=== PATIENT | female | born 1945 | race Caucasian/White ===

== ENCOUNTER → 2016-05-11 | Day surgery (SDC) | payer BC, OTHER ==
[~2016-05-11] VITALS: Ht 171.5 cm; Wt 149.5 kg
[~2016-05-11] MED LIST: ADVIN10/60 INH; ADVIN25/60 INH; AMARYL PO; ATROPINE SULFATE 0.1 MG/ML 5ML SYR IV PRN; CEFAZOLIN 2000 MG/60 ML D5W IV SCH; CEFAZOLIN 3000 MG/65 ML D5W IV SCH; CIPR-255 PO; DXY100 PO; EpHEDrine SULFATE INJ 50 MG/ML AMP IV PRN; FENTANYL CITRATE INJ 50 MCG/1 ML 2 ML VIAL IV PRN; FRS/40 PO; GFNSR600 PO; GLIM2TAB2 PO; GUAI1TAB55 PO; HYDR-5688 PO; HYDROCODONE/ACETAMOPHEN 5/325MG TAB PO PRN; INSDGIPEN SC; INSDGIPEN SQ; LACTATED RINGER'S 1000ML 1,000 ML IV SCH; LIDOCAINE HCL 1% 20 ML VIAL INJ ONE; LIDOCAINE HCL 2% 2 ML VIAL (20MG/ML) ONE; LISI-792 PO; LORA-741 PO; METR-163 PO; MIDAZOLAM HCL 1 MG/ML 2ML VIAL ONE; NVLGIPEN SC; OMEP20CA9 PO; OXGN; PATIENT'S HEIGHT AND/OR WEIGHT NEEDED SCH; PRD20 PO; PRED20TA PO; PROPOFOL IV EMULSION 10 MG/ML 20 ML VIAL IV ONE; PRVHFAIN INH; SITA100T3 PO; SITA1TAB27 PO; SPACMIS19; SPRIN INH; VENL150T33 PO; VNTHFA/IN INH
[2016-05-11 08:06] VITALS: BP 155/78; PULSE 70; TEMP 37.1; O2SAT 96; Ht 171.5 cm; Wt 149.5 kg
--- NOTE | 2016-05-11 08:34 | History & Physical Bridge Note ---
H&P Re-Evaluation Bridge Note: I have examined the patient, reviewed the History & Physical and in the interval since the performance of the History & Physical I have noted the following changes of clinical significance: No changes noted
[2016-05-11 09:28] VITALS: PULSE 68; O2SAT 98
[2016-05-11 10:30] VITALS: BP 166/68; PULSE 68; TEMP 36.5; O2SAT 94
--- NOTE | 2016-05-11 10:35 | [facility] Operative Report ---
Operative Report Operative Date May 11, 2016. Pre-Operative Diagnosis Temporal Pain Post-Operative Diagnosis Rt temporal pain Procedure(s) Performed Right temporal artery bx Surgeon Dr. Peterson Kumar Photo Booth Operator Surgeon(s) none Findings normal appearing , very small Rt temporal artery Anesthesia local / sedation Complication(s) pt had pre op wheezing according to anesthesiologist and required breathing treatment preop dissection was difficult , artery deep, pt somewhat difficult to do under local / sedation I decided to stop after Rt side bx- did not feel comfortable proceeding with Left side- no sxs Disposition Recovery Room / PACU I attest to the content of the Intraoperative Record and any orders documented therein. Any exceptions are noted below.
--- NOTE | 2016-05-11 10:38 | Discharge Instructions ---
Discharge Instructions Visit Reason for Visit: Temporal Pain, Diabetes Discharge Discharge Diagnosis / Problem: Rt temporal pain Discharge Goals Goal(s): Decrease discomfort, Improve function, Improve disease control Activity Recommendations Lifting Limitations: no more than 10 pounds Exercise/Sports Limitations: until after follow-up appointment May Resume Sexual Activity: when tolerated Shower/Bathe: tomorrow Anesthesia . Post Anesthesia Instructions: If you have had General Anesthesia or IV Sedation: * Do not drive today. * Resume driving when surgeon permits. * Do not make important decisions or sign legal documents today. * Call surgeon for: 1. Temperature elevations greater than 101 degrees F. 2. Uncontrollable pain. 3. Excessive bleeding. 4. Persistent nausea and vomiting. 5. Medication intolerance (nausea, vomiting or rash). * For nausea and vomiting use only clear liquids such as: tea, soda, bouillon until nausea subsides, then gradually increase diet as tolerated. * If you have any concerns or questions, call your surgeon's office. If physician is unavailable and it is an emergency, call 911 or go to the nearest emergency room. . Instructions / Follow-Up Instructions / Follow-Up SPECIAL CARE INSTRUCTIONS: * Cover incisions and change daily for comfort/drainage. * May use ibuprofen for pain as tolerated. * Expect some swelling and bruising. Call your doctor if: * Temperature above 101 degrees * Pain not relieved by pain medicine ordered * There is increased drainage or redness from any incision * You have any unanswered questions or concerns [phone]. FOLLOW UP VISIT: If not already scheduled, please call the office for a follow-up visit. for 7-10 days - suture removal- please call OFFICE PHONE NUMBER: Dr. Kumar Office Diet Recommendations Recommended Home Diet: resume previous diet Pending Studies Studies pending at discharge: no Medical Emergencies . Who to Call and When: Medical Emergencies: If at any time you feel your situation is an emergency, please call 911 immediately. . Non-Emergent Contact Non-Emergency issues call your: Surgeon . . "Provider Documentation" section prepared by Peterson Kumar.
--- NOTE | 2016-05-11 10:49 | Anesthesiology Progress Note ---
Anesthesia Post Op Note Date & Time May 11, 2016 at 10:48 Vital Signs Pain Intensity: 0 Vital Signs Past 12 Hours Date Time Temp Pulse Resp B/P Pulse Ox O2 Delivery O2 Flow Rate FiO2 05/11/16 09:28 68 16 98 Room Air 05/11/16 08:06 37.1 70 70 155/78 96 Room Air Notes Mental Status: alert / awake / arousable, participated in evaluation Pt Amnestic to Procedure: Yes Nausea / Vomiting: adequately controlled Pain: adequately controlled Airway Patency, RR, SpO2: stable & adequate BP & HR: stable & adequate Hydration State: stable & adequate Anesthetic Complications: no major complications apparent
[2016-05-11 11:00] VITALS: BP 158/64; PULSE 67; TEMP 36.6; O2SAT 96
--- NOTE | 2016-05-11 11:01 | OPERATIVE REPORT ---
DATE OF OPERATION: 05/11/2016 NAME OF OPERATION: Right temporal artery biopsy. PREOPERATIVE DIAGNOSIS: Right temporal pain. POSTOPERATIVE DIAGNOSIS: Same. STAFF SURGEON: Dr. Kumar. ANESTHESIA: 1% plain lidocaine with sedation. FINDINGS: The patient had apparent wheezing preoperatively according to the anesthesiologist and required a breathing treatment. She does have a history of recent respiratory difficulties. I did approach the right side first after she was brought in the operating room, her right and left temporal areas were prepped and draped. It was somewhat difficult to feel the artery. Using 1% plain lidocaine I anesthetized the tissue just anterior to the ear and just above it, carrying dissection down deeply. With some difficulty, I was able to identify the temporal artery, which was very small. It appeared to be less than a millimeter in diameter. It was dissected free and a segment sent for pathology. The ends were ligated using 4-0 chromic catgut suture and 4-0 silk suture. Because of the patient's medical problems and difficulty with the dissection, I did not feel comfortable proceeding with the left side. Therefore, the right side was closed using 4-0 chromic catgut for the deep tissue, and running 5-0 Prolene for the skin. Dressing applied and she was taken to the recovery room in stable condition. I attest to the content of the Intraoperative Record and any orders documented therein. Any exceptio ns are noted below.
[2016-05-11 11:15] VITALS: BP 162/65; PULSE 72; TEMP 36.9; O2SAT 94
== END | disposition home or self-care (01) ==
LOC: C.ACU 07:09
PROVIDERS: ATTEND Surgery
DX: R51 Headache (principal); I44.0 Atrioventricular block, first degree; Z95.0 Presence of cardiac pacemaker; J44.9 Chronic obstructive pulmonary disease, unspecified; E66.01 Morbid (severe) obesity due to excess calories; E11.9 Type 2 diabetes mellitus without complications; Z79.4 Long term (current) use of insulin

== ENCOUNTER 2016-05-14 02:32 | Inpatient (IN) | payer BC, OTHER ==
[~2016-05-14] VITALS: Ht 170.2 cm; Wt 152.1 kg
[2016-05-14] VITALS (9 sets, daily range): BP systolic 102–138; BP diastolic 60–78; PULSE 74–84; TEMP 36.4–37.7; O2SAT 91–96; Ht 170.2 cm; Wt 152.1 kg
[~2016-05-14 02:32] MED LIST changes: +ACETAMINOPHEN 500 MG TAB PO STA; -ADVIN25/60 INH; -AMARYL PO; -ATROPINE SULFATE 0.1 MG/ML 5ML SYR IV PRN; -CEFAZOLIN 2000 MG/60 ML D5W IV SCH; -CEFAZOLIN 3000 MG/65 ML D5W IV SCH; -CIPR-255 PO; -EpHEDrine SULFATE INJ 50 MG/ML AMP IV PRN; -FENTANYL CITRATE INJ 50 MCG/1 ML 2 ML VIAL IV PRN; -FRS/40 PO; -GFNSR600 PO; -GLIM2TAB2 PO; -GUAI1TAB55 PO; -HYDROCODONE/ACETAMOPHEN 5/325MG TAB PO PRN; -LACTATED RINGER'S 1000ML 1,000 ML IV SCH; -LIDOCAINE HCL 1% 20 ML VIAL INJ ONE; -LIDOCAINE HCL 2% 2 ML VIAL (20MG/ML) ONE; -METR-163 PO; -MIDAZOLAM HCL 1 MG/ML 2ML VIAL ONE; +ONDANSETRON INJ 2 MG/ML 2 ML VIAL IV STA; -OXGN; -PATIENT'S HEIGHT AND/OR WEIGHT NEEDED SCH; -PRED20TA PO; -PROPOFOL IV EMULSION 10 MG/ML 20 ML VIAL IV ONE; -SITA100T3 PO; -SITA1TAB27 PO; +SODIUM CHLORIDE 0.9% 500ML 500 ML IV STA; -SPACMIS19; -VNTHFA/IN INH
--- NOTE | 2016-05-14 02:39 | EMERGENCY ROOM VISIT NOTE ---
History Report prepared by Iraj: Gwen Swann Under the Supervision of: Dr. Phoenix Fuentes M.D. First contact with patient: 02:29 Chief Complaint: ILLNESS Stated Complaint: GENERAL ILLNESS History of Present Illness The patient is a 71 year old female who presents to the Emergency Room with complaints of a persistent illness that began yesterday. The patient states on Tuesday she had a temporal artery biopsy. She states that yesterday she didnt feel well, noting nausea, dry heaves, cough, fever, body aches, runny nose, and diaphoresis. The patient additionally notes a headache on the right side of her head where she had her biopsy. EMS reports that the patient is a diabetic and had a blood sugar of 275 mg/dL. They note that the patients oxygen saturation was 89% and was placed on 2 liters of supplemental oxygen. EMS denies giving the patient any medications prior to arrival. Per records, the patient was discharged from the hospital on 05/01/16 after being treated for acute bronchitis. Records indicate that the patient does not normally use supplemental oxygen. Source of History: patient, EMS Onset: yesterday Position: other (global) Quality: other (illness) Timing: other (persistent) Associated Symptoms: + cough, + diaphoresis, + headache, + nausea Note: Associated Symptoms: dry heaves, runny nose, body aches Review of Systems See HPI for pertinent positives & negatives. A total of 10 systems reviewed and were otherwise negative. Past Medical & Surgical Medical Problems: (1) Asthma (2) Asthma exacerbation (3) Bronchitis with asthma, acute (4) Diabetes (5) HTN (hypertension) (6) Pacemaker (7) Rectal abscess (8) Vertigo Surgical Problems: (1) rhizotomy (2) S/P cholecystectomy (3) S/P hysterectomy (4) S/P knee replacement Family History Heart disease Hypertension Social History Smoking Status: Former Smoker Drug Use: none Marital Status: Housing Status: lives with family Occupation Status: retired Current/Historical Medications Scheduled Fluticasone Prop/Salmeterol (Advair Diskus 100/50 60 Dose), 2 PUFFS INH BID Glimepiride (Glimepiride), 2 MG PO TID Insulin Glargine (Lantus Solostar), 20 UNITS SQ QAM Lisinopril (Zestril), 40 MG PO DAILY Omeprazole (Prilosec), 20 MG PO DAILY Sitagliptin Phosphate (Januvia), 100 MG PO DAILY Tiotropium [place] (Spiriva Handihaler), 1 PUFF INH QAM Venlafaxine Hcl (Venlafaxine Hcl Er), 150 MG PO DAILY Scheduled PRN Albuterol Hfa (Ventolin Hfa), 2 PUFFS INH Q4H PRN for SOB/Wheezing Furosemide (Lasix), 40 MG PO DAILY PRN for WEIGHT GAIN/EDEMA Lorazepam (Ativan), 0.5 MG PO BID PRN for Anxiety Allergies Coded Allergies: Erythromycin (Verified Allergy, Intermediate, CONFUSION, HEADACHE, 05/11/16 ) Nitrofurantoin (Verified Allergy, Intermediate, 15 different symptoms, 02/15) Chocolate (Verified Allergy, Unknown, ., 05/11/16) Physical Exam Vital Signs Date Time Temp Pulse Resp B/P Pulse Ox O2 Delivery O2 Flow Rate FiO2 05/14/16 03:55 37.4 89 22 130/80 95 Nasal Cannula 2.0 05/14/16 02:24 39.0 91 24 153/74 95 Nasal Cannula 2.0 Physical Exam GENERAL: Patient is unwell appearing and in moderate distress. HEENT: Dressing over the right orthodox, no bleeding. No acute trauma, normocephalic atraumatic, mucous membranes moist, no nasal congestion, no scleral icterus. NECK: No stridor, no adenopathy, no meningismus, trachea is midline. LUNGS: Crackles bilateral lungs with mild dyspnea. No wheeze, no rhonchi. HEART: Regular rate and rhythm. No murmurs, rubs, gallops appreciated. ABDOMEN: Soft, nontender, bowel sounds positive, no masses appreciated, no peritonitis. BACK: No midline tenderness, no CVA tenderness EXTREMITIES: Normal motion all extremities, no cyanosis, no edema. NEUROLOGIC: Diffuse generalized weakness. Alert and oriented, no acute motor or sensory deficits, cranial nerves grossly intact. SKIN: No rash, no jaundice, no diaphoresis. Medical Decision & Procedures ER Provider Diagnostic Interpretation: 1 view chest x-ray: Pacemaker in place, no infiltrate, no effusion. Similar to previous chest x-ray. Laboratory Results 05/14/16 02:40 Red Blood Count 5.38, Mean Corpuscular Volume 84.9, Mean Corpuscular Hemoglobin 29.2, Mean Corpuscular Hemoglobin Concent 34.4, Mean Platelet Volume 10.6, Neutrophils (%) (Auto) 85.8, Lymphocytes (%) (Auto) 6.4, Monocytes (%) (Auto) 6.6, Eosinophils (%) (Auto) 0.3, Basophils (%) (Auto) 0.1, Neutrophils # (Auto) 13.23, Lymphocytes # (Auto) 0.98, Monocytes # (Auto) 1.01, Eosinophils # (Auto) 0.05, Basophils # (Auto) 0.01 05/14/16 02:40 Test 05/14/16 02:30 05/14/16 02:35 05/14/16 02:40 05/14/16 02:46 Influenza Type A (RT-PCR) Neg for Influ A (NEG) Influenza Type B (RT-PCR) Neg for Influ B (NEG) Urine Color ORANGE Urine Appearance SLIGHTLY CLOUDY (CLEAR) Urine pH (4.5-7.5) Urine Specific [employer] 1.031 (1.000-1.030) Urine Protein POS (NEG) Urine Glucose (UA) (NEG) Urine Ketones (NEG) Urine Occult Blood (NEG) Urine Nitrite (NEG) Urine Bilirubin (NEG) Urine Urobilinogen (NEG) Urine Leukocyte Esterase (NEG) Urine RBC 0-4 /hpf (0-4) Urine WBC 0 /hpf (0-5) Urine Epithelial Cells >30 /lpf (0-5) Urine Amorphous Sediment PRESENT (NONE PRSENT) Urine Bacteria 1+ (NEG) Urine Hyaline Casts 1-5 /lpf (0-5) Urine Mucus PRESENT (NONE PRSENT) White Blood Count 15.41 K/uL (4.8-10.8) Red Blood Count 5.38 M/uL (4.2-5.4) Hemoglobin 15.7 g/dL (12.0-16.0) Hematocrit 45.7 % (37-47) Mean Corpuscular Volume 84.9 fL (80-100) Mean Corpuscular Hemoglobin 29.2 pg (25-34) Mean Corpuscular Hemoglobin Concent 34.4 g/dl (32-36) Platelet Count 165 K/uL (130-400) Mean Platelet Volume 10.6 fL (7.4-10.4) Neutrophils (%) (Auto) 85.8 % Lymphocytes (%) (Auto) 6.4 % Monocytes (%) (Auto) 6.6 % Eosinophils (%) (Auto) 0.3 % Basophils (%) (Auto) 0.1 % Neutrophils # (Auto) 13.23 K/uL (1.4-6.5) Lymphocytes # (Auto) 0.98 K/uL (1.2-3.4) Monocytes # (Auto) 1.01 K/uL (0.11-0.59) Eosinophils # (Auto) 0.05 K/uL (0-0.5) Basophils # (Auto) 0.01 K/uL (0-0.2) RDW Standard Deviation 44.3 fL (36.4-46.3) RDW Coefficient of Variation 14.4 % (11.5-14.5) Immature Granulocyte % (Auto) 0.8 % Immature Granulocyte # (Auto) 0.13 K/uL (0.00-0.02) Platelet Estimate NORMAL Red Blood Cell Morphology Unremarkable Prothrombin Time 12.4 SECONDS (9.0-12.0) Prothromb Time International Ratio 1.2 (0.9-1.1) Anion Gap 10.0 mmol/L (3-11) Est Creatinine Clear Calc Drug Dose 67.2 ml/min Estimated GFR () 52.7 Estimated GFR (Non- 45.4 BUN/Creatinine Ratio 18.8 (10-20) Calcium Level 8.6 mg/dl (8.5-10.1) Magnesium Level 1.7 mg/dl (1.8-2.4) Total Bilirubin 1.3 mg/dl (0.2-1) Direct Bilirubin 0.4 mg/dl (0-0.2) Aspartate Amino Transf (AST/SGOT) 16 U/L (15-37) Alanine Aminotransferase (ALT/SGPT) 26 U/L (12-78) Alkaline Phosphatase 98 U/L (45-117) Total Creatine Kinase 25 U/L (26-192) Creatine Kinase MB < 0.5 ng/ml (0.5-3.6) Creatine Kinase MB Ratio (0-3.0) Troponin I 0.016 ng/ml (0-0.045) Total Protein 7.3 gm/dl (6.4-8.2) Albumin 2.9 gm/dl (3.4-5.0) Bedside Lactic Acid Venous 1.98 mmol/L (0.90-1.70) Laboratory results as reviewed by me. Medications Administered Medications (Trade) Dose Ordered Sig/Aubree Route Start Time Stop Time Status Last Admin Dose Admin Acetaminophen 1000 mg 1,000 mg NOW STAT PO 05/14/16 02:28 05/14/16 02:30 DC 05/14/16 02:43 1,000 MG Sodium Chloride (Nss 500ml) 500 ml @ 999 mls/hr Q31M STAT IV 05/14/16 02:28 05/14/16 02:58 DC 05/14/16 02:42 999 MLS/HR Ondansetron HCl 4 mg 4 mg NOW STAT IV 05/14/16 02:28 05/14/16 02:30 DC 05/14/16 02:42 4 MG Sodium Chloride (Nss 500ml) 500 ml @ 999 mls/hr Q31M STAT IV 05/14/16 04:14 05/14/16 04:44 DC 05/14/16 04:14 999 MLS/HR Piperacillin Sod/ Tazobactam Sod 4.5 gm 4.5 gm NOW STAT IV 05/14/16 04:27 05/14/16 04:29 DC 05/14/16 04:33 4.5 GM Vancomycin HCl/ Sodium Chloride (Vancomycin Inj/ Nss 250ml) 270 ml @ 125 mls/hr NOW STAT IV 05/14/16 04:27 05/14/16 06:23 DC 05/14/16 05:06 125 MLS/HR ECG Indication: other (illness) Rate (beats per minute): 89 Rhythm: sinus rhythm Findings: 1st degree AV block, RBBB, no acute ischemic change ED Course 0223: The patient was evaluated in room B7. A complete history and physical exam was performed. 0228: Ordered Zofran Inj 4 mg IV, Sodium Chloride 500 ml @ 999 mls/hr IV, Tylenol Tab 1000 mg PO. 0412: I discussed the patients case with Dr. Billy [facility] [place]. He is going to evaluate the patient for further treatment. 0414: Ordered Sodium Chloride 500 ml @ 999 mls/hr IV. 0415: I reevaluated the patient and she is resting comfortably. I discussed the exam findings with her and I discussed the treatment plan. She verbalized complete understanding and agreement. She will be evaluated for further treatment. Medical Decision Differential: Viral, Pharyngitis, Cellulitis, Pneumonia, Influenza, Meningitis, Sepsis, Bacteremia, UTI/Pyelonephritis, Endocrine, Toxicologic, amongst other pathologies entertained. 71 yr old chronically unwell female arrives with fevers, wbc elevation, hypoxia and generalized weakness requiring NC O2. Given fluids and found to have mild lactic acid elevation. CXR unchanged from previous and UA looks clear. No clear cause of sepsis though she is mildly septic. She recently was admitted with Levaquin, thus will start on zosyn/vanc. Otherwise labs look OK and she is stable. Can not send home if hypoxic. Consults Time Called: [phone] Consulting Physician: ARTHUR Allen Returned Call: [phone] I discussed the patients case with ARTHUR Allen. He is going to evaluate the patient for further treatment. Impression Primary Impression: Sepsis Scribe Attestation The scribe's documentation has been prepared under my direction and personally reviewed by me in its entirety. I confirm that the note above accurately reflects all work, treatment, procedures, and medical decision making performed by me. Departure Information Dispostion Being Evaluated By Hospitalist Referrals (PCP) Problem Qualifiers Primary Impression: Sepsis Sepsis type: sepsis due to unspecified organism Qualified Codes: A41.9 - Sepsis, unspecified organism
[2016-05-14] MEDS ORDERED: VNTHFA/IN INH (02:59)
[2016-05-14 03:02] LABS: MANUAL MICROSCOPIC REQUIRED? YES; REVIEW REQ? NO; SULFASALICYLIC ACID POS (NEG); URINE APPEARANCE SLIGHTLY CLOUDY (CLEAR); URINE COLOR ORANGE
[2016-05-14 03:03] LABS: URINE SPECIFIC GRAVITY 1.031 (1.000-1.030)
[2016-05-14] MEDS ORDERED: PRED20TA PO (03:04)
[2016-05-14] MEDS ORDERED: SPRIN INH (03:05)
[2016-05-14 03:06] LABS: URINE RBC 0-4 /hpf (0-4); URINE WBC 0 /hpf (0-5)
[2016-05-14 03:07] LABS: URINE AMORPHOUS SEDIMENT PRESENT (NONE PRSENT); URINE BACTERIA 1+ (NEG); URINE MUCUS PRESENT (NONE PRSENT)
[2016-05-14] MEDS ORDERED: FRS/40 PO (03:07)
[2016-05-14 03:08] LABS: ZZURINE CULT IF INDIC CATH YES
[2016-05-14] MEDS ORDERED: SITA100T3 PO (03:17)
[2016-05-14] MEDS ORDERED: GLIM2TAB2 PO (03:19)
[2016-05-14 03:24] LABS: INR 1.2 (0.9-1.1); PROTHROMBIN TIME (PATIENT) 12.4 SECONDS (9.0-12.0)
[2016-05-14 03:32] LABS: ALT/SGPT 26 U/L (12-78); AST/SGOT 16 U/L (15-37); BLOOD UREA NITROGEN 23 mg/dl (7-18); BUN/CREATININE RATIO 18.8 (10-20); CALCIUM 8.6 mg/dl (8.5-10.1); CARBON DIOXIDE 26 mmol/L (21-32); CHLORIDE 95 mmol/L (98-107); GLUCOSE 285 mg/dl (70-99); MAGNESIUM 1.7 mg/dl (1.8-2.4); POTASSIUM 4.5 mmol/L (3.5-5.1); SODIUM 131 mmol/L (136-145)
[2016-05-14 03:38] LABS: ALKALINE PHOSPHATASE 98 U/L (45-117)
[2016-05-14 03:57] LABS: BASO % 0.1 %; BASO ABS # 0.01 K/uL (0-0.2); COMPLETE YES; EOS % 0.3 %; HEMATOCRIT 45.7 % (37-47); IG% 0.8 %; LYMPH % 6.4 %; LYMPH ABS # 0.98 K/uL (1.2-3.4); MEAN CELL VOLUME 84.9 fL (80-100); MEAN CORPUSCULAR HEMOGLOBIN 29.2 pg (25-34); MEAN CORPUSCULAR HGB CONC 34.4 g/dl (32-36); MEAN PLATELET VOLUME 10.6 fL (7.4-10.4); MONO % 6.6 %; NEUT % 85.8 %; PLATELET COUNT 165 K/uL (130-400); PLT ESTIMATE NORMAL; RED BLOOD COUNT 5.38 M/uL (4.2-5.4); WHITE BLOOD COUNT 15.41 K/uL (4.8-10.8)
[2016-05-14] MEDS ORDERED: SODIUM CHLORIDE 0.9% 500ML 500 ML IV STA (04:14)
[2016-05-14 04:15] LABS: INFLUENZA A PCR Neg for Influ A (NEG); INFLUENZA B PCR Neg for Influ B (NEG)
[2016-05-14] MEDS ORDERED: PIPERACILLIN/TAZOBACTAM 4.5 GM/100ML D5W IV STA (04:27)
[2016-05-14] MEDS ORDERED: VANCOMYCIN INJ 1,000 MG in SODIUM CHLORIDE 0.9% 250ML 250 ML IV STA (04:27)
[2016-05-14] MEDS ORDERED: LORAZEPAM 0.5 MG TAB PO PRN (05:00)
[2016-05-14] MEDS ORDERED: GLUCAGON FOR INJ 1 MG VIAL SQ PRN (05:00)
[2016-05-14] MEDS ORDERED: DEXTROSE 50% 50 ML SYR IV PRN (05:00)
[2016-05-14] MEDS ORDERED: ONDANSETRON INJ 2 MG/ML 2 ML VIAL IV PRN (05:00)
[2016-05-14] MEDS ORDERED: GLUCOSE 40% GEL 15 GM TUBE PO PRN (05:00)
[2016-05-14] MEDS ORDERED: NITROGLYCERIN 0.4 MG SL PER TAB CHARGE SL PRN (05:00)
[2016-05-14] MEDS ORDERED: GLUCOSE 10 TABS/TUBE PO PRN (05:00)
[2016-05-14] MEDS ORDERED: IPRATROPIUM BROMIDE NEB SOLN 0.02% 2.5 ML VIAL INH PRN (05:15)
[2016-05-14] MEDS ORDERED: LEVALBUTEROL 1.25MG/0.5ML NEB INH PRN (05:15)
--- NOTE | 2016-05-14 06:53 | History and Physical ---
History & Physical Date & Time of Service: May 14, 2016 at 06:41 Chief Complaint: Asthma Exacerbation, Hypoxia Primary Care Physician: Ty Obando M.D. History of Present Illness Source: patient The patient is a 71-year-old female who presents emergency department with complaint of generalized illness with productive cough that began yesterday. She underwent a temporal artery biopsy 2 days ago , and reports that since that she hasn't felt well with nausea, dry heaves, cough, fever, body aches, runny nose and sweats. She does note a headache on the right side where she had her biopsy. Her oxygen saturation was noted by EMS to be 89% on room air, and was placed on 2 L of nasal cannula O2 at that time. She was most recently in [facility] and discharged from the hospital on 05/01/2016 after treatment for acute bronchitis. Past Medical/Surgical History Medical Problems: (1) Asthma Status: Chronic (2) Diabetes Status: Chronic (3) HTN (hypertension) Status: Chronic (4) Pacemaker Status: Chronic (5) Rectal abscess Status: Resolved (6) Vertigo Status: Chronic Surgical Problems: (1) rhizotomy Status: Resolved (2) S/P cholecystectomy Status: Resolved (3) S/P hysterectomy Status: Resolved (4) S/P knee replacement Status: Resolved Family History Heart disease Hypertension Social History Smoking Status: Never Smoker Drug Use: none Marital Status: Occupational Status: retired Immunizations History of Influenza Vaccine: Yes Influenza Vaccine Date: Mar 03, 2013 History of Tetanus Vaccine?: No History of Pneumococcal: Yes Pneumococcal Date: Mar 03, 2013 History of Hepatitis B Vaccine: No Multi-Drug Resistant Organisms History of MDRO: No Allergies Coded Allergies: Erythromycin (Verified Allergy, Intermediate, CONFUSION, HEADACHE, 05/11/16 ) Nitrofurantoin (Verified Allergy, Intermediate, 15 different symptoms, 02/15) Chocolate (Verified Allergy, Unknown, ., 05/11/16) Home Medications Scheduled Fluticasone Prop/Salmeterol (Advair Diskus 100/50 60 Dose), 2 PUFFS INH BID Glimepiride (Glimepiride), 2 MG PO TID Insulin Glargine (Lantus Solostar), 20 UNITS SQ QAM Lisinopril (Zestril), 40 MG PO DAILY Omeprazole (Prilosec), 20 MG PO DAILY Sitagliptin Phosphate (Januvia), 100 MG PO DAILY Tiotropium [place] (Spiriva Handihaler), 1 PUFF INH QAM Venlafaxine Hcl (Venlafaxine Hcl Er), 150 MG PO DAILY Scheduled PRN Albuterol Hfa (Ventolin Hfa), 2 PUFFS INH Q4H PRN for SOB/Wheezing Furosemide (Lasix), 40 MG PO DAILY PRN for WEIGHT GAIN/EDEMA Lorazepam (Ativan), 0.5 MG PO BID PRN for Anxiety Review of Systems The patient denies vision change, hearing change, abdominal pain, pelvic pain, blood in urine or stool, dysuria, urinary frequency or urgency, memory loss, rash, abnormal bruising or bleeding, imbalance, focal weakness, night sweats, or allergy symptoms. The review of systems is otherwise negative other than for that already noted above, and at least 10 systems have been reviewed. Physical Exam Vital Signs Date Time Temp Pulse Resp B/P Pulse Ox O2 Delivery O2 Flow Rate FiO2 05/14/16 05:17 79 22 123/77 96 Nasal Cannula 2.0 05/14/16 03:55 37.4 89 22 130/80 95 Nasal Cannula 2.0 05/14/16 02:24 39.0 91 24 153/74 95 Nasal Cannula 2.0 The patient is awake, alert and oriented 3, morbidly obese, lying on her left side in bed, and in mild acute respiratory distress. HEENT--PERRL, mucous membranes and oropharynx very dry. Facial erythema bilaterally. Neck--supple, no JVD or bruits, thyroid normal, trachea midline, no adenopathy. Heart--normal S1 and S2, no extra beats, no murmurs, rubs or gallops. Lungs--scattered wheezes and rhonchi bilaterally, mild respiratory distress, no accessory muscle use. Abdomen--normal bowel sounds and soft, nontender and nondistended, no hernias or masses, no organomegaly, and morbidly obese Extremities--no cyanosis, clubbing, bilaterally 2+ pitting edema. There are good distal pulses b/l. Dermatologic--normal skin turgor, normal color, warm and dry, no abnormal lymph nodes. Moderately severe facial erythema Neurologic--cranial nerves II through XII grossly intact. Psychiatric--normal affect. Diagnostics Laboratory Results Results Past 24 Hours Test 05/14/16 02:30 05/14/16 02:35 05/14/16 02:40 05/14/16 02:46 Range/Units Influenza Type A (RT-PCR) Neg for Influ A NEG Influenza Type B (RT-PCR) Neg for Influ B NEG Urine Color ORANGE Urine Appearance SLIGHTLY CLOUDY CLEAR Urine pH 4.5-7.5 Urine Specific [place] 1.031 1.000-1.030 Urine Protein POS NEG Urine Glucose (UA) NEG Urine Ketones NEG Urine Occult Blood NEG Urine Nitrite NEG Urine Bilirubin NEG Urine Urobilinogen NEG Urine Leukocyte Esterase NEG Urine RBC 0-4 0-4 /hpf Urine WBC 0 0-5 /hpf Urine Epithelial Cells >30 0-5 /lpf Urine Amorphous Sediment PRESENT NONE PRSENT Urine Bacteria 1+ NEG Urine Hyaline Casts 1-5 0-5 /lpf Urine Mucus PRESENT NONE PRSENT White Blood Count 15.41 4.8-10.8 K/uL Red Blood Count 5.38 4.2-5.4 M/uL Hemoglobin 15.7 12.0-16.0 g/dL Hematocrit 45.7 37-47 % Mean Corpuscular Volume 84.9 80-100 fL Mean Corpuscular Hemoglobin 29.2 25-34 pg Mean Corpuscular Hemoglobin Concent 34.4 32-36 g/dl Platelet Count 165 130-400 K/uL Mean Platelet Volume 10.6 7.4-10.4 fL Neutrophils (%) (Auto) 85.8 % Lymphocytes (%) (Auto) 6.4 % Monocytes (%) (Auto) 6.6 % Eosinophils (%) (Auto) 0.3 % Basophils (%) (Auto) 0.1 % Neutrophils # (Auto) 13.23 1.4-6.5 K/uL Lymphocytes # (Auto) 0.98 1.2-3.4 K/uL Monocytes # (Auto) 1.01 0.11-0.59 K/uL Eosinophils # (Auto) 0.05 0-0.5 K/uL Basophils # (Auto) 0.01 0-0.2 K/uL RDW Standard Deviation 44.3 36.4-46.3 fL RDW Coefficient of Variation 14.4 11.5-14.5 % Immature Granulocyte % (Auto) 0.8 % Immature Granulocyte # (Auto) 0.13 0.00-0.02 K/uL Platelet Estimate NORMAL Red Blood Cell Morphology Unremarkable Prothrombin Time 12.4 9.0-12.0 SECONDS Prothromb Time International Ratio 1.2 0.9-1.1 Sodium Level 131 136-145 mmol/L Potassium Level 4.5 3.5-5.1 mmol/L Chloride Level 95 98-107 mmol/L Carbon Dioxide Level 26 21-32 mmol/L Anion Gap 10.0 3-11 mmol/L Blood Urea Nitrogen 23 7-18 mg/dl Creatinine 1.20 0.60-1.20 mg/dl Est Creatinine Clear Calc Drug Dose 67.2 ml/min Estimated GFR () 52.7 Estimated GFR (Non- 45.4 BUN/Creatinine Ratio 18.8 10-20 Random Glucose 285 70-99 mg/dl Calcium Level 8.6 8.5-10.1 mg/dl Magnesium Level 1.7 1.8-2.4 mg/dl Total Bilirubin 1.3 0.2-1 mg/dl Direct Bilirubin 0.4 0-0.2 mg/dl Aspartate Amino Transf (AST/SGOT) 16 15-37 U/L Alanine Aminotransferase (ALT/SGPT) 26 12-78 U/L Alkaline Phosphatase 98 45-117 U/L Total Creatine Kinase 25 26-192 U/L Creatine Kinase MB < 0.5 0.5-3.6 ng/ml Creatine Kinase MB Ratio 0-3.0 Troponin I 0.016 0-0.045 ng/ml Total Protein 7.3 6.4-8.2 gm/dl Albumin 2.9 3.4-5.0 gm/dl Bedside Lactic Acid Venous 1.98 0.90-1.70 mmol/L Microbiology Results 05/14/16 Blood Culture, Received Pending 05/14/16 Blood Culture, Received Pending 05/14/16 Urine Culture, Received Pending EKG EKG shows normal sinus rhythm at 89, with left axis deviation, right bundle branch block, and excessive baseline noise to make any other conclusions. Impression Assessment and Plan Hypoxia, leukocytosis, with generalized malaise/asthma exacerbation--patient will be admitted to the telemetry unit due to multiple medical issues and need for close oxygen monitoring. We'll place on ceftriaxone 1 g IV daily, levofloxacin 500 mg IV every 24 hours, guaifenesin extended release 600 mg by mouth twice a day, and Xopenex with Atrovent nebulizer to use every 6 hours while awake and every 2 hours when necessary. Hold Advair Diskus and Spiriva HandiHaler. Diabetes mellitus--continue Lantus Solo start 20 units subcutaneous every morning, hold Clement 0.2 mg by mouth 3 times a day and Januvia 100 mg by mouth daily. Place on Accu-Cheks before meals and at bedtime with NovoLog coverage. Hypertension/ status post pacer/dehydration--continue lisinopril 40 mg by mouth daily. Place on normal saline with potassium chloride 20 mEq at 100 mils per hour. GERD--change omeprazole 20 mg by mouth daily to pantoprazole 40 mg by mouth daily. Anxiety/depression--continue venlafaxine ER 150 mg by mouth daily. Level of Care Telemetry Advanced Directives Existing Advance Directive: No Existing Living Will: No Existing Power of Vinyl Cutter: No Resuscitation Status FULL RESUSCITATION VTE Prophylaxis VTE Risk Assessment Done? Y/N: Yes Risk Level: Moderate Given or contraindicated: SCD's
[2016-05-14] MEDS: LEVALBUTEROL 1.25MG/0.5ML NEB INH SCH ×3 (06:58→19:23)
[2016-05-14] MEDS: IPRATROPIUM BROMIDE NEB SOLN 0.02% 2.5 ML VIAL INH SCH ×3 (06:58→19:23)
[2016-05-14] MEDS ORDERED: CEFTRIAXONE SOD INJ 1 GM in DEXTROSE 5% ADD-VANTAGE 50ML 50 ML IV SCH (07:00)
[2016-05-14] MEDS: LEVOFLOXACIN / D5W 500 MG in PREMIXED IN D5W 100 ML IV SCH (08:09)
[2016-05-14] MEDS: NSS + 20MEQ KCL 1000ML 1,000 ML IV SCH ×2 (08:09→19:16)
--- NOTE | 2016-05-14 08:09 | DIAGNOSTIC IMAGING REPORT ---
CHEST ONE VIEW PORTABLE HISTORY: FEVER COMPARISON: Chest 04/29/2016. FINDINGS: The heart remains mildly enlarged. Left basilar linear density favors subsegmental atelectasis or scarring. This is also unchanged. No new focal lung consolidations. No evidence for pulmonary edema. Left-sided dual-chamber pacemaker. Stable calcified granuloma within the right midlung zone. IMPRESSION: No significant change compared to the prior study. No acute process. Linear densities the left lung base favor subsegmental atelectasis or scarring. Electronically signed by: Romero Spaulding M.D. 05/14/2016 8:07 AM Dictated Date/Time: 05/14/2016 8:06 AM
[2016-05-14] MEDS: LISINOPRIL 20 MG TAB PO SCH (08:14)
[2016-05-14] MEDS: VENLAFAXINE HCL XR 150 MG CAPXR PO SCH (08:14)
[2016-05-14] MEDS: PANTOprazole SOD 40 MG TAB PO SCH (08:15)
[2016-05-14] MEDS: GUAIFENESIN 600 MG TABCR PO SCH ×2 (08:15→20:37)
[2016-05-14] MEDS: INSULIN GLARGINE SOLOSTAR 100 UNITS/ML 3 ML PEN SQ SCH (08:19)
[2016-05-14] MEDS: INSULIN ASPART 100 UNITS/ML 3 ML PEN SC SCH ×4 (08:19→20:39)
[2016-05-14] MEDS ORDERED: LEVALBUTEROL/IPRATROPIUM NEB INH SCH (09:00)
[2016-05-14] MEDS: ACETAMINOPHEN 325 MG TAB PO PRN ×2 (10:20→22:44)
--- NOTE | 2016-05-14 15:11 | Progress Note ---
Subjective Subjective Date of Service: May 14, 2016. Pt evaluation today including: conversation w/ patient, physical exam, chart review, review of studies, review of inpatient medication list Notes: patient was admitted earlier today and hypoxia improved Problem List Medical Problems: (1) Acute bronchitis Status: Acute (2) Bronchitis Status: Acute (3) Fatigue Status: Acute (4) Generalized weakness Status: Acute (5) Leukocytosis Status: Acute (6) Sepsis Status: Acute Review of Systems Constitutional: No fever ENT: No hearing loss Respiratory: No cough Cardiac: No chest pain Abdomen: No pain Female : No dysuria Neurologic: No memory loss Psychiatric: No depression symptoms Endo: No fatigue Physical Exam Vital Signs Vital Signs Past 24 Hours: Date Time Temp Pulse Resp B/P Pulse Ox O2 Delivery O2 Flow Rate FiO2 05/14/16 14:23 77 18 96 Nasal Cannula 2.0 05/14/16 12:24 36.4 76 16 125/71 94 Room Air 05/14/16 12:00 Nasal Cannula 2.0 05/14/16 08:00 Nasal Cannula 2.0 05/14/16 06:59 74 18 96 Nasal Cannula 2.0 05/14/16 06:46 36.8 74 24 113/71 95 Nasal Cannula 2.0 05/14/16 05:17 79 22 123/77 96 Nasal Cannula 2.0 05/14/16 03:55 37.4 89 22 130/80 95 Nasal Cannula 2.0 05/14/16 02:24 39.0 91 24 153/74 95 Nasal Cannula 2.0 Physical Exam: General Appearance: WD/WN, no apparent distress Eyes: bilateral eyes normal inspection ENT: hearing grossly normal, pharynx normal Neck: supple, no JVD Respiratory/Chest: chest non-tender Cardiovascular: regular rate, rhythm Abdomen: normal bowel sounds, soft Extremities: normal range of motion Medications Medications: Current Inpatient Medications Medications (Trade) Dose Ordered Sig/Aubree Route Start Time Stop Time Status Last Admin Dose Admin Potassium Chloride/Sodium Chloride (Nss + 20meq KCl 1000ml) 1,000 ml @ 100 mls/hr Q10H IV 05/14/16 07:00 06/13/16 06:59 05/14/16 08:09 100 MLS/HR Acetaminophen (Tylenol Tab) 650 mg Q4H PRN PO 05/14/16 05:00 06/13/16 04:59 05/14/16 10:20 650 MG Zolpidem Tartrate (Ambien Tab) 5 mg HSZ PRN PO 05/14/16 05:00 06/13/16 04:59 Nitroglycerin (Nitrostat Tab) 0.4 mg UD PRN SL 05/14/16 05:00 06/13/16 04:59 Ondansetron HCl (Zofran Inj) 4 mg Q6H PRN IV 05/14/16 05:00 06/13/16 04:59 Insulin Aspart (novoLOG ASPART) SLIDING SCALE If C... ACHS SC 05/14/16 07:00 06/13/16 06:59 05/14/16 08:19 8 UNITS Glucose (Glucose 40% Gel) UD PRN PO 05/14/16 05:00 06/13/16 04:59 Glucose (Glucose Chew Tab) 1 tabs UD PRN PO 05/14/16 05:00 06/13/16 04:59 Dextrose (Dextrose 50% 50ML Syringe) 50 ml UD PRN IV 05/14/16 05:00 06/13/16 04:59 Glucagon 1 mg 1 mg UD PRN SQ 05/14/16 05:00 06/13/16 04:59 Ceftriaxone Sodium 1 gm/ Dextrose 50 ml @ 100 mls/hr DAILY@0600 IV 05/14/16 07:00 05/21/16 05:59 05/14/16 08:09 100 MLS/HR Levofloxacin/Prmx (Levaquin / D5W/ Premixed D5W) 100 ml @ 100 mls/hr DAILY@0800 IV 05/14/16 08:00 05/21/16 07:59 05/14/16 08:09 100 MLS/HR Guaifenesin (Mucinex Contr Rel Tab) 600 mg Q12 PO 05/14/16 09:00 06/13/16 08:59 05/14/16 08:15 600 MG Insulin Glargine (Lantus Solostar Pen) 20 unit QAM SQ 05/14/16 09:00 06/13/16 08:59 05/14/16 08:19 20 UNIT Lisinopril (Zestril Tab) 40 mg DAILY PO 05/14/16 09:00 06/13/16 08:59 05/14/16 08:14 40 MG Lorazepam (Ativan Tab) 0.5 mg BID PRN PO 05/14/16 05:00 06/13/16 04:59 Venlafaxine HCl (effeXOR EXTENDED REL CAP) 150 mg DAILY PO 05/14/16 09:00 06/13/16 08:59 05/14/16 08:14 150 MG Pantoprazole Sodium (Protonix Tab) 40 mg QAM PO 05/14/16 09:00 06/13/16 08:59 05/14/16 08:15 40 MG Ipratropium [place] (Atrovent 0.02% 0.5MG/2.5ML Neb) 0.5 mg Q6R INH 05/14/16 09:00 06/13/16 08:59 05/14/16 14:23 0.5 MG Levalbuterol (Xopenex 1.25MG/ 0.5ML Neb) 1.25 mg Q6R INH 05/14/16 09:00 06/13/16 08:59 05/14/16 14:23 1.25 MG Ipratropium [place] (Atrovent 0.02% 0.5MG/2.5ML Neb) 0.5 mg Q2H PRN INH 05/14/16 05:15 06/13/16 05:14 Levalbuterol (Xopenex 1.25MG/ 0.5ML Neb) 1.25 mg Q2H PRN INH 05/14/16 05:15 06/13/16 05:14 Laboratory Data Labs: Last 24 Hours Test 05/14/16 02:30 05/14/16 02:35 05/14/16 02:40 05/14/16 02:46 Influenza Type A (RT-PCR) Neg for Influ A Influenza Type B (RT-PCR) Neg for Influ B Urine Color ORANGE Urine Appearance SLIGHTLY CLOUDY Urine pH Urine Specific Black 1.031 Urine Protein POS Urine Glucose (UA) Urine Ketones Urine Occult Blood Urine Nitrite Urine Bilirubin Urine Urobilinogen Urine Leukocyte Esterase Urine RBC 0-4 /hpf Urine WBC 0 /hpf Urine Epithelial Cells >30 /lpf Urine Amorphous Sediment PRESENT Urine Bacteria 1+ Urine Hyaline Casts 1-5 /lpf Urine Mucus PRESENT White Blood Count 15.41 K/uL Red Blood Count 5.38 M/uL Hemoglobin 15.7 g/dL Hematocrit 45.7 % Mean Corpuscular Volume 84.9 fL Mean Corpuscular Hemoglobin 29.2 pg Mean Corpuscular Hemoglobin Concent 34.4 g/dl Platelet Count 165 K/uL Mean Platelet Volume 10.6 fL Neutrophils (%) (Auto) 85.8 % Lymphocytes (%) (Auto) 6.4 % Monocytes (%) (Auto) 6.6 % Eosinophils (%) (Auto) 0.3 % Basophils (%) (Auto) 0.1 % Neutrophils # (Auto) 13.23 K/uL Lymphocytes # (Auto) 0.98 K/uL Monocytes # (Auto) 1.01 K/uL Eosinophils # (Auto) 0.05 K/uL Basophils # (Auto) 0.01 K/uL RDW Standard Deviation 44.3 fL RDW Coefficient of Variation 14.4 % Immature Granulocyte % (Auto) 0.8 % Immature Granulocyte # (Auto) 0.13 K/uL Platelet Estimate NORMAL Red Blood Cell Morphology Unremarkable Prothrombin Time 12.4 SECONDS Prothromb Time International Ratio 1.2 Sodium Level 131 mmol/L Potassium Level 4.5 mmol/L Chloride Level 95 mmol/L Carbon Dioxide Level 26 mmol/L Anion Gap 10.0 mmol/L Blood Urea Nitrogen 23 mg/dl Creatinine 1.20 mg/dl Est Creatinine Clear Calc Drug Dose 67.2 ml/min Estimated GFR () 52.7 Estimated GFR (Non- 45.4 BUN/Creatinine Ratio 18.8 Random Glucose 285 mg/dl Calcium Level 8.6 mg/dl Magnesium Level 1.7 mg/dl Total Bilirubin 1.3 mg/dl Direct Bilirubin 0.4 mg/dl Aspartate Amino Transf (AST/SGOT) 16 U/L Alanine Aminotransferase (ALT/SGPT) 26 U/L Alkaline Phosphatase 98 U/L Total Creatine Kinase 25 U/L Creatine Kinase MB < 0.5 ng/ml Creatine Kinase MB Ratio Troponin I 0.016 ng/ml Total Protein 7.3 gm/dl Albumin 2.9 gm/dl Bedside Lactic Acid Venous 1.98 mmol/L Test 05/14/16 07:03 05/14/16 07:13 05/14/16 11:17 Bedside Glucose 284 mg/dl 268 mg/dl Lactic Acid Level 1.2 mmol/L Assessment and Plan A 71 yo female comes with Hypoxia, leukocytosis, with generalized malaise/asthma exacerbation, improving continue telemetry unit due to multiple medical issues and need for close oxygen monitoring. continue ceftriaxone 1 g IV daily, levofloxacin 500 mg IV every 24 hours, guaifenesin extended release 600 mg by mouth twice a day, and Xopenex with Atrovent nebulizer to use every 6 hours while awake and every 2 hours when necessary. Hold Advair Diskus and Spiriva HandiHaler. Diabetes mellitus type2, continue Lantus Solo start 20 units subcutaneous every morning, hold Clement 0.2 mg by mouth 3 times a day and Januvia 100 mg by mouth daily. Place on Accu-Cheks before meals and at bedtime with NovoLog coverage. Hypertension/ status post pacer/dehydration--continue lisinopril 40 mg by mouth daily. Place on normal saline with potassium chloride 20 mEq at 100 mils per hour. GERD--change omeprazole 20 mg by mouth daily to pantoprazole 40 mg by mouth daily. Anxiety/depression--continue venlafaxine ER 150 mg by mouth daily.
[2016-05-14] MEDS ORDERED: NURSING VERBAL MED ORDER ONE (17:15)
[2016-05-14] MEDS ORDERED: INSULIN GLARGINE SOLOSTAR 100 UNITS/ML 3 ML PEN SQ SCH (17:30)
[2016-05-15] VITALS (13 sets, daily range): BP systolic 98–138; BP diastolic 65–74; PULSE 68–93; TEMP 36.5–39; O2SAT 18–97
[2016-05-15] MEDS ORDERED: KETOROLAC TROMETHAMINE 15 MG/ML VIAL IV. PRN (01:00)
[2016-05-15] MEDS ORDERED: NURSING VERBAL MED ORDER ONE ×2 (01:00→01:45)
[2016-05-15] MEDS ORDERED: PIPERACILL/TAZOBAC CONSULT ACTIVE PRN (01:15)
[2016-05-15] MEDS ORDERED: PIPERACILL/TAZOBAC IV 4.5 GM in DEXTROSE 5% 100ML IV ONE (01:15)
[2016-05-15] MEDS: LEVALBUTEROL 1.25MG/0.5ML NEB INH SCH ×4 (02:23→19:57)
[2016-05-15] MEDS: IPRATROPIUM BROMIDE NEB SOLN 0.02% 2.5 ML VIAL INH SCH ×4 (02:23→19:57)
[2016-05-15] MEDS: NSS + 20MEQ KCL 1000ML 1,000 ML IV SCH (04:12)
[2016-05-15] MEDS ORDERED: PIPERACILL/TAZOBAC IV 4.5 GM in DEXTROSE 5% 100ML IV SCH (06:00)
[2016-05-15] MEDS: ACETAMINOPHEN 325 MG TAB PO PRN ×2 (06:14→18:40)
[2016-05-15 06:35] LABS: COMPLETE YES; EOS % 0.2 %; HEMATOCRIT 39.5 % (37-47); IG% 0.6 %; LYMPH % 7.9 %; LYMPH ABS # 0.83 K/uL (1.2-3.4); MEAN CELL VOLUME 87.2 fL (80-100); MEAN CORPUSCULAR HEMOGLOBIN 28.9 pg (25-34); MEAN CORPUSCULAR HGB CONC 33.2 g/dl (32-36); MEAN PLATELET VOLUME 11.1 fL (7.4-10.4); MONO % 7.4 %; NEUT % 83.9 %; PLATELET COUNT 132 K/uL (130-400); RED BLOOD COUNT 4.53 M/uL (4.2-5.4); WHITE BLOOD COUNT 10.54 K/uL (4.8-10.8)
[2016-05-15 07:28] LABS: BUN/CREATININE RATIO 19.2 (10-20); CALCIUM 8.1 mg/dl (8.5-10.1); MAGNESIUM 1.8 mg/dl (1.8-2.4); POTASSIUM 4.1 mmol/L (3.5-5.1)
[2016-05-15] MEDS: VENLAFAXINE HCL XR 150 MG CAPXR PO SCH (08:07)
[2016-05-15] MEDS: PANTOprazole SOD 40 MG TAB PO SCH (08:08)
[2016-05-15] MEDS: GUAIFENESIN 600 MG TABCR PO SCH ×2 (08:08→21:33)
[2016-05-15] MEDS: LISINOPRIL 20 MG TAB PO SCH (08:08)
[2016-05-15] MEDS: INSULIN ASPART 100 UNITS/ML 3 ML PEN SC SCH ×4 (08:10→21:36)
[2016-05-15] MEDS: INSULIN GLARGINE SOLOSTAR 100 UNITS/ML 3 ML PEN SQ SCH (08:11)
[2016-05-15] MEDS: LEVOFLOXACIN / D5W 500 MG in PREMIXED IN D5W 100 ML IV SCH (08:13)
--- NOTE | 2016-05-15 12:31 | Progress Note ---
Subjective Subjective Date of Service: May 15, 2016. Pt evaluation today including: conversation w/ patient, physical exam, chart review, review of studies, review of inpatient medication list Problem List Medical Problems: (1) Acute bronchitis Status: Acute (2) Bronchitis Status: Acute (3) Fatigue Status: Acute (4) Generalized weakness Status: Acute (5) Leukocytosis Status: Acute (6) Sepsis Status: Acute Review of Systems Constitutional: No fever ENT: No hearing loss Respiratory: No cough Cardiac: No chest pain Abdomen: No pain Female : No dysuria Neurologic: No memory loss Psychiatric: No depression symptoms Endo: No fatigue Physical Exam Vital Signs Vital Signs Past 24 Hours: Date Time Temp Pulse Resp B/P Pulse Ox O2 Delivery O2 Flow Rate FiO2 05/15/16 11:59 37.0 74 20 113/73 18 05/15/16 08:00 Room Air 05/15/16 07:17 78 18 91 Room Air 05/15/16 07:13 37.1 78 19 126/74 94 Room Air 05/15/16 06:14 37.7 05/15/16 04:00 Room Air 05/15/16 03:52 37.3 88 19 119/70 90 Room Air 05/15/16 02:23 76 18 96 Room Air 05/15/16 01:44 38.2 05/15/16 00:39 93 138/71 05/15/16 00:30 39.0 05/14/16 23:59 Room Air 05/14/16 23:21 37.7 84 22 127/71 93 Room Air 05/14/16 20:00 Room Air 05/14/16 19:23 77 18 96 Nasal Cannula 2.0 05/14/16 19:14 36.8 81 20 138/78 91 Room Air 05/14/16 16:00 Room Air 05/14/16 15:57 36.8 75 18 102/60 92 Room Air 05/14/16 14:23 77 18 96 Nasal Cannula 2.0 Physical Exam: General Appearance: WD/WN, no apparent distress Eyes: bilateral eyes normal inspection ENT: hearing grossly normal, pharynx normal Neck: supple, no JVD Respiratory/Chest: chest non-tender, normal breath sounds Cardiovascular: regular rate, rhythm, no gallop Abdomen: non tender, soft Extremities: non-tender Neurologic/Psychiatric: alert Skin: normal color Medications Medications: Current Inpatient Medications Medications (Trade) Dose Ordered Sig/Aubree Route Start Time Stop Time Status Last Admin Dose Admin Acetaminophen (Tylenol Tab) 650 mg Q4H PRN PO 05/14/16 05:00 06/13/16 04:59 05/15/16 06:14 650 MG Zolpidem Tartrate (Ambien Tab) 5 mg HSZ PRN PO 05/14/16 05:00 06/13/16 04:59 Nitroglycerin (Nitrostat Tab) 0.4 mg UD PRN SL 05/14/16 05:00 06/13/16 04:59 Ondansetron HCl (Zofran Inj) 4 mg Q6H PRN IV 05/14/16 05:00 06/13/16 04:59 Insulin Aspart (novoLOG ASPART) SLIDING SCALE If C... ACHS SC 05/14/16 07:00 06/13/16 06:59 05/15/16 08:10 4 UNITS Glucose (Glucose 40% Gel) UD PRN PO 05/14/16 05:00 06/13/16 04:59 Glucose (Glucose Chew Tab) 1 tabs UD PRN PO 05/14/16 05:00 06/13/16 04:59 Dextrose (Dextrose 50% 50ML Syringe) 50 ml UD PRN IV 05/14/16 05:00 06/13/16 04:59 Glucagon 1 mg 1 mg UD PRN SQ 05/14/16 05:00 06/13/16 04:59 Levofloxacin/Prmx (Levaquin / D5W/ Premixed D5W) 100 ml @ 100 mls/hr DAILY@0800 IV 05/14/16 08:00 05/21/16 07:59 05/15/16 08:13 100 MLS/HR Guaifenesin (Mucinex Contr Rel Tab) 600 mg Q12 PO 05/14/16 09:00 06/13/16 08:59 05/15/16 08:08 600 MG Insulin Glargine (Lantus Solostar Pen) 20 unit QAM SQ 05/14/16 09:00 06/13/16 08:59 05/15/16 08:11 20 UNIT Lisinopril (Zestril Tab) 40 mg DAILY PO 05/14/16 09:00 06/13/16 08:59 05/15/16 08:08 40 MG Lorazepam (Ativan Tab) 0.5 mg BID PRN PO 05/14/16 05:00 06/13/16 04:59 05/14/16 22:44 0.5 MG Venlafaxine HCl (effeXOR EXTENDED REL CAP) 150 mg DAILY PO 05/14/16 09:00 06/13/16 08:59 05/15/16 08:07 150 MG Pantoprazole Sodium (Protonix Tab) 40 mg QAM PO 05/14/16 09:00 06/13/16 08:59 05/15/16 08:08 40 MG Ipratropium [place] (Atrovent 0.02% 0.5MG/2.5ML Neb) 0.5 mg Q6R INH 05/14/16 09:00 06/13/16 08:59 05/15/16 07:17 0.5 MG Levalbuterol (Xopenex 1.25MG/ 0.5ML Neb) 1.25 mg Q6R INH 05/14/16 09:00 06/13/16 08:59 05/15/16 07:17 1.25 MG Ipratropium [place] (Atrovent 0.02% 0.5MG/2.5ML Neb) 0.5 mg Q2H PRN INH 05/14/16 05:15 06/13/16 05:14 Levalbuterol (Xopenex 1.25MG/ 0.5ML Neb) 1.25 mg Q2H PRN INH 05/14/16 05:15 06/13/16 05:14 Ketorolac Tromethamine 15 mg 15 mg Q6H PRN IV. 05/15/16 01:00 05/20/16 00:59 Piperacillin Sod/ Tazobactam Sod/ Dextrose (Zosyn Iv/D5 100ml) 120 ml @ 30 mls/hr Q8H IV 05/15/16 06:00 05/22/16 05:59 05/15/16 06:14 30 MLS/HR Piperacillin Sod/ Tazobactam Sod (Consult) 1 ea UD PRN N/A 05/15/16 01:15 06/14/16 01:14 Laboratory Data Labs: Last 24 Hours Test 05/14/16 16:32 05/14/16 20:07 1/13/17 20:36 05/15/16 05:45 Bedside Glucose 260 mg/dl 232 mg/dl 254 mg/dl White Blood Count 10.54 K/uL Red Blood Count 4.53 M/uL Hemoglobin 13.1 g/dL Hematocrit 39.5 % Mean Corpuscular Volume 87.2 fL Mean Corpuscular Hemoglobin 28.9 pg Mean Corpuscular Hemoglobin Concent 33.2 g/dl Platelet Count 132 K/uL Mean Platelet Volume 11.1 fL Neutrophils (%) (Auto) 83.9 % Lymphocytes (%) (Auto) 7.9 % Monocytes (%) (Auto) 7.4 % Eosinophils (%) (Auto) 0.2 % Basophils (%) (Auto) 0.0 % Neutrophils # (Auto) 8.85 K/uL Lymphocytes # (Auto) 0.83 K/uL Monocytes # (Auto) 0.78 K/uL Eosinophils # (Auto) 0.02 K/uL Basophils # (Auto) 0.00 K/uL RDW Standard Deviation 46.7 fL RDW Coefficient of Variation 14.6 % Immature Granulocyte % (Auto) 0.6 % Immature Granulocyte # (Auto) 0.06 K/uL Sodium Level 132 mmol/L Potassium Level 4.1 mmol/L Chloride Level 97 mmol/L Carbon Dioxide Level 25 mmol/L Anion Gap 10.0 mmol/L Blood Urea Nitrogen 19 mg/dl Creatinine 1.00 mg/dl Est Creatinine Clear Calc Drug Dose 79.5 ml/min Estimated GFR () 65.6 Estimated GFR (Non- 56.6 BUN/Creatinine Ratio 19.2 Random Glucose 211 mg/dl Calcium Level 8.1 mg/dl Magnesium Level 1.8 mg/dl Test 05/15/16 06:33 05/15/16 11:48 Bedside Glucose 203 mg/dl 248 mg/dl Assessment and Plan A 71 yo female comes with Hypoxia, leukocytosis, with generalized malaise/suspected obesity hypoventilation syndrome, improving continue telemetry unit due to multiple medical issues and need for close oxygen monitoring. stop levofloxacin 500 mg IV every 24 hours, guaifenesin extended release 600 mg by mouth twice a day, and Xopenex with Atrovent nebulizer to use every 6 hours while awake and every 2 hours when necessary. stop zosyn IV restart Advair Diskus and Spiriva HandiHaler. Diabetes mellitus type2, continue Lantus Solo start 20 units subcutaneous every morning, hold Clement 0.2 mg by mouth 3 times a day and restart Januvia 100 mg by mouth daily. Accu-Cheks before meals and at bedtime with NovoLog coverage. Hypertension/ status post pacer/dehydration--continue lisinopril 40 mg by mouth daily. stop IVF GERD--change omeprazole 20 mg by mouth daily to pantoprazole 40 mg by mouth daily. Anxiety/depression--continue venlafaxine ER 150 mg by mouth daily. FULL Code transfer to [facility] patient is deconditioned and needs placement, she can`t walk without assistance , PT/OT eval pending
[2016-05-15] MEDS ORDERED: FUROSEMIDE 40 MG TAB PO PRN (12:45)
[2016-05-15] MEDS: FLUTICASONE/SALMETEROL 100/50 (ADVAIR) 14 PUFF/1 INHALER INH SCH (21:33)
[2016-05-15] MEDS: ZOLPIDEM TARTRATE 5 MG TAB PO PRN (23:31)
[2016-05-16] VITALS (8 sets, daily range): BP systolic 118–130; BP diastolic 67–77; PULSE 66–86; TEMP 36.9–37.8; O2SAT 90–96
[2016-05-16] MEDS: ZOLPIDEM TARTRATE 5 MG TAB PO PRN (01:46)
[2016-05-16] MEDS: IPRATROPIUM BROMIDE NEB SOLN 0.02% 2.5 ML VIAL INH SCH ×4 (01:50→19:06)
[2016-05-16] MEDS: LEVALBUTEROL 1.25MG/0.5ML NEB INH SCH ×4 (01:50→19:06)
[2016-05-16 07:27] LABS: COMPLETE YES; EOS % 0.6 %; HEMATOCRIT 38.3 % (37-47); IG% 0.5 %; LYMPH % 8.9 %; LYMPH ABS # 0.78 K/uL (1.2-3.4); MEAN CELL VOLUME 85.3 fL (80-100); MEAN CORPUSCULAR HEMOGLOBIN 28.7 pg (25-34); MEAN CORPUSCULAR HGB CONC 33.7 g/dl (32-36); MEAN PLATELET VOLUME 10.9 fL (7.4-10.4); MONO % 9.4 %; NEUT % 80.6 %; PLATELET COUNT 157 K/uL (130-400); RED BLOOD COUNT 4.49 M/uL (4.2-5.4); WHITE BLOOD COUNT 8.73 K/uL (4.8-10.8)
[2016-05-16 07:58] LABS: BUN/CREATININE RATIO 20.8 (10-20); CALCIUM 8.7 mg/dl (8.5-10.1); CREATININE 0.99 mg/dl (0.60-1.20); MAGNESIUM 1.9 mg/dl (1.8-2.4); POTASSIUM 4.4 mmol/L (3.5-5.1)
[2016-05-16] MEDS: FLUTICASONE/SALMETEROL 100/50 (ADVAIR) 14 PUFF/1 INHALER INH SCH ×2 (08:26→21:00)
[2016-05-16] MEDS: PANTOprazole SOD 40 MG TAB PO SCH (08:26)
[2016-05-16] MEDS: LISINOPRIL 20 MG TAB PO SCH (08:26)
[2016-05-16] MEDS: VENLAFAXINE HCL XR 150 MG CAPXR PO SCH (08:26)
[2016-05-16] MEDS: TIOTROPIUM BROMIDE 5 PUFF/90 MCG INH INH SCH (08:26)
[2016-05-16] MEDS: GUAIFENESIN 600 MG TABCR PO SCH ×2 (08:26→21:01)
[2016-05-16] MEDS: SITAGLIPTIN 100 MG TAB PO SCH (08:27)
[2016-05-16] MEDS: INSULIN ASPART 100 UNITS/ML 3 ML PEN SC SCH ×4 (08:53→21:08)
[2016-05-16] MEDS: INSULIN GLARGINE SOLOSTAR 100 UNITS/ML 3 ML PEN SQ SCH ×2 (08:53→21:09)
[2016-05-16] MEDS ORDERED: METHYLPREDNISOLONE 4MG TAB, 6 DAY TAPER PO SCH (11:15)
[2016-05-16] MEDS ORDERED: METHYLPREDNISOLONE 4 MG TAB PO SCH ×3 (13:00→21:00)
--- NOTE | 2016-05-16 13:24 | Progress Note ---
Subjective Subjective Date of Service: May 16, 2016. Pt evaluation today including: conversation w/ patient, physical exam, chart review, review of studies, review of inpatient medication list Notes: asks to restart her prednisone Problem List Medical Problems: (1) Acute bronchitis Status: Acute (2) Bronchitis Status: Acute (3) Fatigue Status: Acute (4) Generalized weakness Status: Acute (5) Leukocytosis Status: Acute (6) Sepsis Status: Acute Review of Systems Constitutional: No fever ENT: No hearing loss Respiratory: No cough Abdomen: No pain Female : No dysuria Neurologic: No memory loss Psychiatric: No depression symptoms Endo: + fatigue Physical Exam Vital Signs Vital Signs Past 24 Hours: Date Time Temp Pulse Resp B/P Pulse Ox O2 Delivery O2 Flow Rate FiO2 05/16/16 11:25 92 05/16/16 08:04 37.8 85 18 130/77 90 Room Air 05/16/16 08:00 90 Room Air 05/16/16 07:34 86 18 92 Room Air 05/15/16 23:00 37.4 68 18 109/65 91 Room Air 05/15/16 20:00 Room Air 05/15/16 19:57 76 18 95 Room Air 05/15/16 15:17 36.5 72 18 98/69 94 Room Air 05/15/16 14:30 74 18 97 Room Air Physical Exam: General Appearance: WD/WN, no apparent distress, + obese Eyes: bilateral eyes normal inspection ENT: hearing grossly normal, pharynx normal Neck: supple, no JVD Respiratory/Chest: chest non-tender, normal breath sounds Cardiovascular: no edema, no JVD Abdomen: non tender, no organomegaly Extremities: normal range of motion, non-tender Neurologic/Psychiatric: alert Medications Medications: Current Inpatient Medications Medications (Trade) Dose Ordered Sig/Aubree Route Start Time Stop Time Status Last Admin Dose Admin Acetaminophen (Tylenol Tab) 650 mg Q4H PRN PO 05/14/16 05:00 06/13/16 04:59 05/15/16 18:40 650 MG Zolpidem Tartrate (Ambien Tab) 5 mg HSZ PRN PO 05/14/16 05:00 06/13/16 04:59 05/16/16 01:46 5 MG Nitroglycerin (Nitrostat Tab) 0.4 mg UD PRN SL 05/14/16 05:00 06/13/16 04:59 Ondansetron HCl (Zofran Inj) 4 mg Q6H PRN IV 05/14/16 05:00 06/13/16 04:59 Insulin Aspart (novoLOG ASPART) SLIDING SCALE If C... ACHS SC 05/14/16 07:00 06/13/16 06:59 05/16/16 12:52 8 UNITS Glucose (Glucose 40% Gel) UD PRN PO 05/14/16 05:00 06/13/16 04:59 Glucose (Glucose Chew Tab) 1 tabs UD PRN PO 05/14/16 05:00 06/13/16 04:59 Dextrose (Dextrose 50% 50ML Syringe) 50 ml UD PRN IV 05/14/16 05:00 06/13/16 04:59 Glucagon (Glucagon Inj) 1 mg UD PRN SQ 05/14/16 05:00 06/13/16 04:59 Guaifenesin (Mucinex Contr Rel Tab) 600 mg Q12 PO 05/14/16 09:00 06/13/16 08:59 05/16/16 08:26 600 MG Insulin Glargine (Lantus Solostar Pen) 20 unit QAM SQ 05/14/16 09:00 06/13/16 08:59 05/16/16 08:53 20 UNIT Lisinopril (Zestril Tab) 40 mg DAILY PO 05/14/16 09:00 06/13/16 08:59 05/16/16 08:26 40 MG Lorazepam (Ativan Tab) 0.5 mg BID PRN PO 05/14/16 05:00 06/13/16 04:59 05/14/16 22:44 0.5 MG Venlafaxine HCl (effeXOR EXTENDED REL CAP) 150 mg DAILY PO 05/14/16 09:00 06/13/16 08:59 05/16/16 08:26 150 MG Pantoprazole Sodium (Protonix Tab) 40 mg QAM PO 05/14/16 09:00 06/13/16 08:59 05/16/16 08:26 40 MG Ipratropium [place] (Atrovent 0.02% 0.5MG/2.5ML Neb) 0.5 mg Q6R INH 05/14/16 09:00 06/13/16 08:59 05/16/16 07:35 0.5 MG Levalbuterol (Xopenex 1.25MG/ 0.5ML Neb) 1.25 mg Q6R INH 05/14/16 09:00 06/13/16 08:59 05/16/16 07:35 1.25 MG Ipratropium [place] (Atrovent 0.02% 0.5MG/2.5ML Neb) 0.5 mg Q2H PRN INH 05/14/16 05:15 06/13/16 05:14 Levalbuterol (Xopenex 1.25MG/ 0.5ML Neb) 1.25 mg Q2H PRN INH 05/14/16 05:15 06/13/16 05:14 Ketorolac Tromethamine (Toradol Inj) 15 mg Q6H PRN IV. 05/15/16 01:00 05/20/16 00:59 Salmeterol Xinafoate/ Fluticasone (Advair Diskus 100/50 Inh) 1 puff BID INH 05/15/16 21:00 06/14/16 20:59 05/16/16 08:26 1 PUFF Furosemide (Lasix tab) 40 mg DAILY PRN PO 05/15/16 12:45 06/14/16 12:44 Sitagliptin Phosphate (Januvia Tab) 100 mg DAILY PO 05/16/16 09:00 06/15/16 08:59 05/16/16 08:27 100 MG Tiotropium [place] (Spiriva Handihaler Inhaler) 1 puff QAM INH 05/16/16 09:00 06/15/16 08:59 05/16/16 08:26 1 PUFF Insulin Glargine (Lantus Solostar Pen) 10 unit HS SQ 05/16/16 21:00 06/15/16 20:59 Methylprednisolone (Medrol Tab) 8 mg TODAY@2100 PO 05/16/16 21:00 05/16/16 21:01 Methylprednisolone (Medrol Tab) 4 mg 07,13,18 PO 05/17/16 07:00 05/17/16 18:01 Methylprednisolone (Medrol Tab) 8 mg HS PO 05/17/16 21:00 05/17/16 21:01 Methylprednisolone (Medrol Tab) 4 mg 07,13,18,21 PO 05/18/16 07:00 05/18/16 21:01 Methylprednisolone (Medrol Tab) 4 mg 07,13,21 PO 05/19/16 07:00 05/19/16 21:01 Methylprednisolone (Medrol Tab) 4 mg 07,21 PO 05/20/16 07:00 05/20/16 21:01 Methylprednisolone (Medrol Tab) 4 mg 07 PO 05/21/16 07:00 05/21/16 07:01 Methylprednisolone (Medrol Tab) 4 mg TODAY@1700 PO 05/16/16 17:00 05/16/16 17:01 Laboratory Data Labs: Last 24 Hours Test 05/15/16 16:20 05/15/16 20:12 05/16/16 06:55 05/16/16 07:24 Bedside Glucose 212 mg/dl 165 mg/dl 249 mg/dl White Blood Count 8.73 K/uL Red Blood Count 4.49 M/uL Hemoglobin 12.9 g/dL Hematocrit 38.3 % Mean Corpuscular Volume 85.3 fL Mean Corpuscular Hemoglobin 28.7 pg Mean Corpuscular Hemoglobin Concent 33.7 g/dl Platelet Count 157 K/uL Mean Platelet Volume 10.9 fL Neutrophils (%) (Auto) 80.6 % Lymphocytes (%) (Auto) 8.9 % Monocytes (%) (Auto) 9.4 % Eosinophils (%) (Auto) 0.6 % Basophils (%) (Auto) 0.0 % Neutrophils # (Auto) 7.04 K/uL Lymphocytes # (Auto) 0.78 K/uL Monocytes # (Auto) 0.82 K/uL Eosinophils # (Auto) 0.05 K/uL Basophils # (Auto) 0.00 K/uL RDW Standard Deviation 45.0 fL RDW Coefficient of Variation 14.4 % Immature Granulocyte % (Auto) 0.5 % Immature Granulocyte # (Auto) 0.04 K/uL Sodium Level 131 mmol/L Potassium Level 4.4 mmol/L Chloride Level 96 mmol/L Carbon Dioxide Level 25 mmol/L Anion Gap 10.0 mmol/L Blood Urea Nitrogen 21 mg/dl Creatinine 0.99 mg/dl Est Creatinine Clear Calc Drug Dose 80.5 ml/min Estimated GFR () 66.4 Estimated GFR (Non- 57.3 BUN/Creatinine Ratio 20.8 Random Glucose 259 mg/dl Calcium Level 8.7 mg/dl Magnesium Level 1.9 mg/dl Test 05/16/16 11:30 Bedside Glucose 252 mg/dl Assessment and Plan A 71 yo female comes with Hypoxia, leukocytosis, with generalized malaise with recent acute bronchitis in the setting of suspected obesity hypoventilation syndrome, improving continue telemetry unit due to multiple medical issues and need for close oxygen monitoring. stop all antibiotics restart po steroids as per patient request, since she was taking a slow taper which was abruptly stopped after 1 week due to right temporal muscle biopsy, she was treated for acute bronchitis restart Advair Diskus and Spiriva HandiHaler when off po steroids Diabetes mellitus type2, continue Lantus Solo start 20 units subcutaneous every morning, hold Clement 0.2 mg by mouth 3 times a day and restart Januvia 100 mg by mouth daily. anticipate higher sugars with steroids Accu-Cheks before meals and at bedtime with NovoLog coverage. Hypertension/ status post pacer/dehydration--continue lisinopril 40 mg by mouth daily. stop IVF GERD--change omeprazole 20 mg by mouth daily to pantoprazole 40 mg by mouth daily. Anxiety/depression--continue venlafaxine ER 150 mg by mouth daily. 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
[2016-05-16] MEDS ORDERED: FUROSEMIDE 40 MG/4 ML VIAL IV STA (15:00)
--- NOTE | 2016-05-16 15:09 | DIAGNOSTIC IMAGING REPORT ---
SINGLE VIEW CHEST CLINICAL HISTORY: CHF. FINDINGS: An AP, portable, upright chest radiograph is compared to study dated 05/14/2016. The examination is degraded by portable technique, large body habitus, apical lordotic positioning, and patient rotation. A 2-lead cardiac pacemaker is unchanged in position and partially obscures the left mid chest. The heart is enlarged and there is atherosclerotic calcification of the thoracic aorta. The pulmonary vasculature is noncongested. Chronic interstitial thickening is unchanged. Small calcified granulomas are again noted. No airspace consolidation, large pleural effusion, or pneumothorax is seen. The skeletal structures are osteopenic. The bony thorax is grossly intact. IMPRESSION: 1. Cardiomegaly and cardiac pacemaker. There is no radiographic evidence of congestive failure. 2. No airspace consolidation or pleural effusion is identified. Electronically signed by: Lamont Kinney M.D. 05/16/2016 3:07 PM Dictated Date/Time: 05/16/2016 3:06 PM
[2016-05-16] MEDS ORDERED: FUROSEMIDE INJ 40 MG in SYRINGE 0 ML IV ONE (15:15)
[2016-05-16] MEDS ORDERED: NURSING DECISION MEDICATION ORDER SCH (18:15)
[2016-05-16] MEDS ORDERED: MICONAZOLE NITRATE POWDER 43 GM EXT PRN (19:15)
[2016-05-16] MEDS ORDERED: INSULIN GLARGINE PER UNIT 10 UNITS in SYRINGE 0 ML SC SCH (21:00)
[2016-05-17] VITALS (7 sets, daily range): BP systolic 116–138; BP diastolic 65–73; PULSE 68–70; TEMP 36.4–36.9; O2SAT 91–96
[2016-05-17] MEDS: IPRATROPIUM BROMIDE NEB SOLN 0.02% 2.5 ML VIAL INH SCH ×2 (02:11→08:04)
[2016-05-17] MEDS: LEVALBUTEROL 1.25MG/0.5ML NEB INH SCH ×2 (02:11→08:04)
[2016-05-17] MEDS: INSULIN ASPART 100 UNITS/ML 3 ML PEN SC SCH ×6 (06:30→21:44)
[2016-05-17 06:59] LABS: COMPLETE YES; HEMATOCRIT 36.7 % (37-47); IG% 0.6 %; LYMPH % 9.1 %; LYMPH ABS # 0.49 K/uL (1.2-3.4); MEAN CELL VOLUME 85.2 fL (80-100); MEAN CORPUSCULAR HGB CONC 34.1 g/dl (32-36); MONO % 7.1 %; NEUT % 83.2 %; PLATELET COUNT 136 K/uL (130-400); RED BLOOD COUNT 4.31 M/uL (4.2-5.4); WHITE BLOOD COUNT 5.39 K/uL (4.8-10.8)
[2016-05-17] MEDS ORDERED: METHYLPREDNISOLONE 4 MG TAB PO SCH ×2 (07:00→21:00)
[2016-05-17 07:51] LABS: BUN/CREATININE RATIO 21.3 (10-20); CALCIUM 8.7 mg/dl (8.5-10.1); CREATININE 1.1 mg/dl (0.60-1.20); MAGNESIUM 2.3 mg/dl (1.8-2.4); POTASSIUM 4.8 mmol/L (3.5-5.1)
[2016-05-17 08:17] LABS: BETA-HYDROXYBUTYRATE 1.39 mg/dL (0.2-2.81)
[2016-05-17] MEDS: INSULIN GLARGINE SOLOSTAR 100 UNITS/ML 3 ML PEN SQ SCH ×2 (08:20→21:45)
[2016-05-17] MEDS: FLUTICASONE/SALMETEROL 100/50 (ADVAIR) 14 PUFF/1 INHALER INH SCH ×2 (08:24→21:09)
[2016-05-17] MEDS: GUAIFENESIN 600 MG TABCR PO SCH ×2 (08:25→21:10)
[2016-05-17] MEDS: TIOTROPIUM BROMIDE 5 PUFF/90 MCG INH INH SCH (08:25)
[2016-05-17] MEDS: VENLAFAXINE HCL XR 150 MG CAPXR PO SCH (08:26)
[2016-05-17] MEDS: LISINOPRIL 20 MG TAB PO SCH (08:27)
[2016-05-17] MEDS: PANTOprazole SOD 40 MG TAB PO SCH (08:27)
[2016-05-17] MEDS: SITAGLIPTIN 100 MG TAB PO SCH (08:27)
[2016-05-17] MEDS ORDERED: INSULIN ASPART 100 UNITS/ML 3 ML PEN SC ONE (08:30)
[2016-05-17] MEDS ORDERED: NURSING VERBAL MED ORDER ONE (08:30)
[2016-05-17] MEDS ORDERED: INSULIN GLARGINE SOLOSTAR 100 UNITS/ML 3 ML PEN SQ SCH (09:00)
[2016-05-17] MEDS ORDERED: PHARMACY GLYCEMIC MGMT CONSULT PRN (11:56)
[2016-05-17] MEDS ORDERED: INSULIN REGULAR 10 UNITS in SYRINGE 9.9 ML IV SCH (12:00)
--- NOTE | 2016-05-17 13:05 | Progress Note ---
Subjective Date of Service: May 17, 2016. Subjective Pt evaluation today including: conversation w/ patient, physical exam, chart review, lab review, review of studies Problem List Medical Problems: (1) Acute bronchitis Status: Acute (2) Bronchitis Status: Acute (3) Fatigue Status: Acute (4) Generalized weakness Status: Acute (5) Leukocytosis Status: Acute (6) Sepsis Status: Acute Review of Systems Constitutional: + fever Eyes: + diplopia ENT: No hearing loss Respiratory: + cough, + dyspnea on exertion, + shortness of breath, + sputum Cardiac: No chest pain Abdomen: No nausea, No pain, No vomiting Musculoskeletal: + joint pain, + muscle pain Female : No dysuria Neurologic: No numbness/tingling, No weakness Psychiatric: No depression symptoms Heme: No abnormal bleeding/bruising Endo: + fatigue Skin: No rash Medications Current Inpatient Medications Medications (Trade) Dose Ordered Sig/Aubree Route Start Time Stop Time Status Last Admin Dose Admin Acetaminophen (Tylenol Tab) 650 mg Q4H PRN PO 05/14/16 05:00 06/13/16 04:59 05/15/16 18:40 650 MG Zolpidem Tartrate (Ambien Tab) 5 mg HSZ PRN PO 05/14/16 05:00 06/13/16 04:59 05/16/16 01:46 5 MG Nitroglycerin (Nitrostat Tab) 0.4 mg UD PRN SL 05/14/16 05:00 06/13/16 04:59 Ondansetron HCl (Zofran Inj) 4 mg Q6H PRN IV 05/14/16 05:00 06/13/16 04:59 Insulin Aspart (novoLOG ASPART) SLIDING SCALE If C... ACHS SC 05/14/16 07:00 06/13/16 06:59 05/17/16 12:17 18 UNITS Glucose (Glucose 40% Gel) UD PRN PO 05/14/16 05:00 06/13/16 04:59 Glucose (Glucose Chew Tab) 1 tabs UD PRN PO 05/14/16 05:00 06/13/16 04:59 Dextrose (Dextrose 50% 50ML Syringe) 50 ml UD PRN IV 05/14/16 05:00 06/13/16 04:59 Glucagon (Glucagon Inj) 1 mg UD PRN SQ 05/14/16 05:00 06/13/16 04:59 Guaifenesin (Mucinex Contr Rel Tab) 600 mg Q12 PO 05/14/16 09:00 06/13/16 08:59 05/17/16 08:25 600 MG Lisinopril (Zestril Tab) 40 mg DAILY PO 05/14/16 09:00 06/13/16 08:59 05/17/16 08:27 40 MG Lorazepam (Ativan Tab) 0.5 mg BID PRN PO 05/14/16 05:00 06/13/16 04:59 05/14/16 22:44 0.5 MG Venlafaxine HCl (effeXOR EXTENDED REL CAP) 150 mg DAILY PO 05/14/16 09:00 06/13/16 08:59 05/17/16 08:26 150 MG Pantoprazole Sodium (Protonix Tab) 40 mg QAM PO 05/14/16 09:00 06/13/16 08:59 05/17/16 08:27 40 MG Ipratropium [place] (Atrovent 0.02% 0.5MG/2.5ML Neb) 0.5 mg Q2H PRN INH 05/14/16 05:15 06/13/16 05:14 Levalbuterol (Xopenex 1.25MG/ 0.5ML Neb) 1.25 mg Q2H PRN INH 05/14/16 05:15 06/13/16 05:14 Ketorolac Tromethamine (Toradol Inj) 15 mg Q6H PRN IV. 05/15/16 01:00 05/20/16 00:59 Salmeterol Xinafoate/ Fluticasone (Advair Diskus 100/50 Inh) 1 puff BID INH 05/15/16 21:00 06/14/16 20:59 05/17/16 08:24 1 PUFF Furosemide (Lasix tab) 40 mg DAILY PRN PO 05/15/16 12:45 06/14/16 12:44 Sitagliptin Phosphate (Januvia Tab) 100 mg DAILY PO 05/16/16 09:00 06/15/16 08:59 05/17/16 08:27 100 MG Tiotropium [place] (Spiriva Handihaler Inhaler) 1 puff QAM INH 05/16/16 09:00 06/15/16 08:59 05/17/16 08:25 1 PUFF Insulin Glargine (Lantus Solostar Pen) 10 unit HS SQ 05/16/16 21:00 06/15/16 20:59 05/16/16 21:09 10 UNIT Methylprednisolone (Medrol Tab) 4 mg 07,13,18 PO 05/17/16 07:00 05/17/16 18:01 05/17/16 06:46 4 MG Methylprednisolone (Medrol Tab) 8 mg HS PO 05/17/16 21:00 05/17/16 21:01 Methylprednisolone (Medrol Tab) 4 mg 07,13,18,21 PO 05/18/16 07:00 05/18/16 21:01 Methylprednisolone (Medrol Tab) 4 mg 07,13,21 PO 05/19/16 07:00 05/19/16 21:01 Methylprednisolone (Medrol Tab) 4 mg 07,21 PO 05/20/16 07:00 05/20/16 21:01 Methylprednisolone (Medrol Tab) 4 mg 07 PO 05/21/16 07:00 05/21/16 07:01 Miconazole Nitrate (Desenex Powder) 1 appln PRN PRN EXT 05/16/16 19:15 06/15/16 19:14 Ipratropium [place] (Atrovent Hfa Inhaler) 2 puffs Q6R INH 05/17/16 15:00 06/16/16 14:59 Levalbuterol (Xopenex Hfa Inhaler) 2 puffs Q6R INH 05/17/16 15:00 06/16/16 14:59 Insulin Glargine (Lantus Solostar Pen) 30 unit QAM SQ 05/17/16 09:00 06/16/16 08:59 05/17/16 08:37 30 UNIT Miscellaneous Information (Consult Glycemic Management Pharmacy) 1 ea UD PRN N/A 05/17/16 11:56 06/16/16 11:55 Insulin Aspart (novoLOG ASPART) SLIDING SCALE If C... 1400 SC 05/17/16 14:00 05/17/16 14:01 Insulin Aspart (novoLOG ASPART) SLIDING SCALE If C... 0000,0400 SC 05/18/16 00:00 06/17/16 00:00 Objective Vital Signs Date Time Temp Pulse Resp B/P Pulse Ox O2 Delivery O2 Flow Rate FiO2 05/17/16 11:49 70 91 05/17/16 08:00 91 Room Air 05/17/16 07:52 36.4 70 18 116/70 91 Room Air 05/17/16 05:07 93 Room Air 05/16/16 23:02 37.2 82 18 118/67 93 Room Air 05/16/16 19:09 80 18 94 Room Air 05/16/16 16:00 Room Air 05/16/16 15:44 36.9 75 20 128/74 94 Room Air 05/16/16 14:25 66 18 96 Room Air Physical Exam General Appearance: no apparent distress, + obese Eyes: normal inspection, PERRL, EOMI ENT: normal ENT inspection, hearing grossly normal Neck: supple Respiratory/Chest: + decreased breath sounds, + crackles, + rhonchi Cardiovascular: regular rate, rhythm, no edema, no gallop, no JVD, no murmur Abdomen: normal bowel sounds, non tender, soft Extremities: normal range of motion, non-tender Neurologic/Psychiatric: water pollution scientist II-XII nml as tested, no motor/sensory deficits, alert, normal mood/affect, oriented x 3 Skin: normal color, warm/dry, no rash Laboratory Results Last 24 Hours Test 05/16/16 16:10 05/16/16 19:55 05/17/16 06:25 05/17/16 07:29 Bedside Glucose 206 mg/dl 236 mg/dl 355 mg/dl White Blood Count 5.39 K/uL Red Blood Count 4.31 M/uL Hemoglobin 12.5 g/dL Hematocrit 36.7 % Mean Corpuscular Volume 85.2 fL Mean Corpuscular Hemoglobin 29.0 pg Mean Corpuscular Hemoglobin Concent 34.1 g/dl Platelet Count 136 K/uL Mean Platelet Volume 11.0 fL Neutrophils (%) (Auto) 83.2 % Lymphocytes (%) (Auto) 9.1 % Monocytes (%) (Auto) 7.1 % Eosinophils (%) (Auto) 0.0 % Basophils (%) (Auto) 0.0 % Neutrophils # (Auto) 4.49 K/uL Lymphocytes # (Auto) 0.49 K/uL Monocytes # (Auto) 0.38 K/uL Eosinophils # (Auto) 0.00 K/uL Basophils # (Auto) 0.00 K/uL RDW Standard Deviation 45.3 fL RDW Coefficient of Variation 14.4 % Immature Granulocyte % (Auto) 0.6 % Immature Granulocyte # (Auto) 0.03 K/uL Sodium Level 132 mmol/L Potassium Level 4.8 mmol/L Chloride Level 97 mmol/L Carbon Dioxide Level 27 mmol/L Anion Gap 8.0 mmol/L Blood Urea Nitrogen 23 mg/dl Creatinine 1.10 mg/dl Est Creatinine Clear Calc Drug Dose 72.4 ml/min Estimated GFR () 58.5 Estimated GFR (Non- 50.5 BUN/Creatinine Ratio 21.3 Random Glucose 386 mg/dl Calcium Level 8.7 mg/dl Magnesium Level 2.3 mg/dl Beta-Hydroxybutyric Acid 1.39 mg/dL Test 05/17/16 11:23 Bedside Glucose 379 mg/dl Assessment and Plan 71 year old with S/P recent temporal artery biopsy presented with shortness of breath and hypoxia starting with URI Sx. Acute on chronic hypoxic respiratory failure Asthma / COPD exacerbation / Obesity restrictive lung disease / bronchitis - no sign of consolidation CXR- but presentation is suggestive of bronchitis, continue levofloxacin current smoker, non compliance with O/P advair (misses her night time dose) - Continue steroids and bronchodilators - Continue Advair + Spiriva - albuterol HFA prn sob/wheeze - smoking cessation - outpt PCP f/u Possible Giant Cell Arteritis - ESR last admission was 80 a 0.9 x 0.2 x 0.2 tubular artery. Multiple sections and levels are examined. No significant inflammation is noted Due to lack of enough evidence and severe uncontrolled diabetes, will taper her steroids off currently on prednisone 60mg daily never had loss of vision, but rather had double vision, has a pacemaker, can not get MRI Type 2 Diabetes Mellitus - HbA1C 8.7 consult pharmacy to adjust insulin totally out of control Daytime sleepiness - Follow up with PCP for possible need for ANJALI testing. Hypertension - continue lisinopril 40 mg PO daily. GERD - continue PPI Depression/anxiety - continue venlafaxine ER 50 mg PO daily. Urinary incontinence - continue oxybutynin chloride 5 mg by mouth 3 times a day. VTE prophylaxis - lovenox 40 mg SQ daily
--- NOTE | 2016-05-17 13:48 | Pharmacy Progress Note ---
Glycemic Control Intl Consult Date of Service May 17, 2016. Scope Glycemic Pharmacist consulted by Dr Ribera on 05/17/16 for glycemic control and to write orders per [facility] inpatient glycemic control protocol Objective Weight (Kilograms): 152.100 Accuchecks BSG (last 24hrs): Test 05/16/16 16:10 05/16/16 19:55 05/17/16 06:25 05/17/16 07:29 Bedside Glucose 206 mg/dl (70-90) 236 mg/dl (70-90) 355 mg/dl (70-90) Random Glucose 386 mg/dl (70-99) Test 05/17/16 11:23 Bedside Glucose 379 mg/dl (70-90) Laboratory Data (last 24hrs) Test 05/17/16 06:25 Anion Gap 8.0 mmol/L BUN/Creatinine Ratio 21.3 Blood Urea Nitrogen 23 mg/dl Creatinine 1.10 mg/dl Potassium Level 4.8 mmol/L Sodium Level 132 mmol/L White Blood Count 5.39 K/uL Red Blood Count 4.31 M/uL Hemoglobin 12.5 g/dL Hematocrit 36.7 % Mean Corpuscular Volume 85.2 fL Mean Corpuscular Hemoglobin 29.0 pg Mean Corpuscular Hemoglobin Concent 34.1 g/dl Platelet Count 136 K/uL Mean Platelet Volume 11.0 fL Neutrophils (%) (Auto) 83.2 % Lymphocytes (%) (Auto) 9.1 % Monocytes (%) (Auto) 7.1 % Eosinophils (%) (Auto) 0.0 % Basophils (%) (Auto) 0.0 % Neutrophils # (Auto) 4.49 K/uL Lymphocytes # (Auto) 0.49 K/uL Monocytes # (Auto) 0.38 K/uL Eosinophils # (Auto) 0.00 K/uL Basophils # (Auto) 0.00 K/uL Recent Pertinent Medications Outpatient Anti-diabetic Regimen: * Amaryl 2mg PO TID * Lantus 20 units SQ q AM * Januvia 100mg PO daily * A1c = 8.7 % 04/2016 The patient is currently receiving: * Basal insulin: Lantus 30 units SQ in the AM and 10 units SQ in the PM * Correctional Insulin: NovoLog Correction per scale AC/HS Goal Range: Low 100 mg/dL - High 150 mg/dL Correction Factor: 30 mg/dL/unit * Prandial insulin: Per carb ratio of 1 unit per 10 grams CHO consumed * Oral Agents: Januvia 100mg PO daily Risk Factors for Insulin Resistance: * Steroids: Medrol Dose Pack started on 05/16/16, today Sonya received two doses of Medrol when it was switched to Prednisone 20mg PO daily with a NOW dose * Infection: Levofloxacin IV * Diet: T2DM/AHA Assessment & Plan ASSESSMENT: * ADA & AACE recommend a goal blood sugar range 140-180 mg/dl for the majority of critically ill & non-critically ill patients. However, more stringent targets may be selected in individual cases. 05/17/16 * 71 y/o type 2 diabetic who has been experiencing steroid induced hyperglycemia for the past 24 hours after starting a Medrol Dose Pack * The provider has increased the basal insulin dose - agree with current changes * I will add additional Accu-checks for the NovoLog while acutely hyperglycemic as well as tighten parameters * BSG pre-lunch 379mg/dL is indicative of severe hyperglycemia * give 10 units of IV insulin x1 dose now to augment NovoLog * Re-check BSG at 14:00 (around 2 hours after dose) PLAN FOR INPATIENT GLYCEMIC CONTROL: * Lantus 30 units SQ q AM * Lantus 10 units SQ q PM * NovoLog AC and HS * Accu-checks at 00:00 and 04:00 as well * Correction factor: 20mg/dL/unit * Carb ratio: 1 unit per 8 g of CHO consumed * Goal range: 110-150 mg/dL * Regular insulin 10 units IV x1 dose with lunch NovoLog * Sitagliptin 100mg PO daily * Hold glimepiride due to risk of hypoglycemia * A1c - current, added to discharge instructions * Please note that the plan above was derived based on current level of insulin resistance and hospital stress. These recommendations are appropriate for inpatient admission only. Plan of care upon discharge will need to be reassessed to avoid potential outpatient hypo/hyperglycemia. Thank you.
[2016-05-17] MEDS: LEVOFLOXACIN / D5W 500 MG in PREMIXED IN D5W 100 ML IV SCH (14:09)
[2016-05-17] MEDS: IPRATROPIUM BROMIDE HFA INHALER INH SCH ×2 (15:15→21:09)
[2016-05-17] MEDS: LEValbuterol HFA 15GM INHALER INH SCH ×2 (15:16→21:09)
[2016-05-17] MEDS: ACETAMINOPHEN 325 MG TAB PO PRN (23:57)
[2016-05-18] MEDS: INSULIN ASPART 100 UNITS/ML 3 ML PEN SC SCH ×6 (00:09→21:36)
[2016-05-18 05:55] LABS: BASO % 0.1 %; BASO ABS # 0.01 K/uL (0-0.2); COMPLETE YES; EOS % 0.1 %; HEMATOCRIT 35.6 % (37-47); IG% 0.4 %; LYMPH % 14.2 %; LYMPH ABS # 0.99 K/uL (1.2-3.4); MEAN CELL VOLUME 84.4 fL (80-100); MEAN CORPUSCULAR HEMOGLOBIN 28.7 pg (25-34); MEAN PLATELET VOLUME 10.5 fL (7.4-10.4); MONO % 5.9 %; NEUT % 79.3 %; PLATELET COUNT 167 K/uL (130-400); RED BLOOD COUNT 4.22 M/uL (4.2-5.4); WHITE BLOOD COUNT 6.98 K/uL (4.8-10.8)
[2016-05-18 06:29] LABS: BUN/CREATININE RATIO 29.7 (10-20); CALCIUM 9.3 mg/dl (8.5-10.1); MAGNESIUM 2.1 mg/dl (1.8-2.4); POTASSIUM 4.6 mmol/L (3.5-5.1)
[2016-05-18 06:32] LABS: ALB/GLOB RATIO 0.5 (0.9-2); PHOSPHORUS 3.3 mg/dl (2.5-4.9)
[2016-05-18 06:52] VITALS: BP 110/69; PULSE 68; TEMP 36.6; O2SAT 93
[2016-05-18] MEDS ORDERED: METHYLPREDNISOLONE 4 MG TAB PO SCH (07:00)
[2016-05-18] MEDS: TIOTROPIUM BROMIDE 5 PUFF/90 MCG INH INH SCH (07:44)
[2016-05-18] MEDS: FLUTICASONE/SALMETEROL 100/50 (ADVAIR) 14 PUFF/1 INHALER INH SCH ×2 (07:44→21:30)
[2016-05-18] MEDS: GUAIFENESIN 600 MG TABCR PO SCH ×2 (07:45→21:32)
[2016-05-18] MEDS: SITAGLIPTIN 100 MG TAB PO SCH (07:45)
[2016-05-18] MEDS: LISINOPRIL 20 MG TAB PO SCH (07:45)
[2016-05-18] MEDS: IPRATROPIUM BROMIDE HFA INHALER INH SCH ×3 (07:46→21:31)
[2016-05-18] MEDS: PANTOprazole SOD 40 MG TAB PO SCH (07:46)
[2016-05-18] MEDS: VENLAFAXINE HCL XR 150 MG CAPXR PO SCH (07:46)
[2016-05-18] MEDS: LEValbuterol HFA 15GM INHALER INH SCH ×3 (07:47→21:31)
[2016-05-18 08:00] VITALS: O2SAT 93
[2016-05-18] MEDS: INSULIN GLARGINE SOLOSTAR 100 UNITS/ML 3 ML PEN SQ SCH ×2 (09:22→21:37)
[2016-05-18] MEDS: LEVOFLOXACIN / D5W 500 MG in PREMIXED IN D5W 100 ML IV SCH (12:54)
[2016-05-18 16:00] VITALS: O2SAT 93
[2016-05-18 16:03] VITALS: BP 143/81; PULSE 71; TEMP 36.8; O2SAT 94
--- NOTE | 2016-05-18 16:46 | Rheumatology Consultation ---
Rheumatology Consultation Date of Consultation: May 18, 2016. Reason for Consultation: Patient is suspected of having giant cell arteritis. Please make recommendations History of Present Illness Patient is a 71-year-old female who had been admitted to the hospital April 2016 for an asthmatic bronchitis. At that time she was found to have an elevated sedimentation rate of 80. She had some puffiness around her temporal side near the lateral aspect of her eye. She had no scalp tenderness no tenderness over the temporal arteries. No jaw claudication . At that time the issue of temporal arteritis was raised. She was placed on prednisone 60 milligrams p.o. q.day at that time. She was discharged from the hospital. I saw her in my office 1 week later. A temporal artery biopsy was ordered and was performed. The temporal artery biopsy was negative for vasculitis. At the time I saw her in the office she it was recommended that she continue with the prednisone 60 milligrams p.o. q.day until I saw her after her biopsy. She was readmitted to the hospital the day she was to come back to see me in the outpatient setting. I was unaware but according to the patient she had ran out of her prednisone. So she had been out for 2 days prior to the admission. Currently her sedimentation rate is still elevated. And she was admitted with a diagnosis of asthmatic bronchitis, her sugars were very elevated and she was dehydrated. Currently in the hospital she is on prednisone 20 milligrams p.o. q.day and the question is: How does one manage a negative temporal artery biopsy when someone has had 1 weeks worth of prednisone 60 milligrams p.o. q.day.This is a challenging question and one has to use clinical judgement moving forward Social History Smoking Status: Former Smoker History of Alcohol Use: No Drug Use: none Marital Status: Occupation Status: retired Review of Systems Constitutional: + weakness (Patient has generalized weakness of her lower extremity ), No chills, No fatigue, No fever, No problem reported, No see HPI, No sweats, No weight loss Eyes: + worsening of vision (Patient notes that she has some blurriness in her eyes but she does not have any she age coming down over 1 side or the other which is amorogus fugus) ENT: No dental problems, No hearing loss, No nasal symptoms, No problem reported, No see HPI, No sore throat, No tinnitus, No trouble swallowing, No unusual epistaxis Respiratory: No cough, No dyspnea at rest, No dyspnea on exertion, No hemoptysis, No problem reported, No see HPI, No shortness of breath, No sputum, No wheezing Cardiac: No PND, No chest pain, No claudication, No edema, No orthopnea, No palpitations, No problem reported, No see HPI Abdomen: No GI bleeding, No constipation, No diarrhea, No nausea, No pain, No problem reported, No see HPI, No vomiting Musculoskeletal: No calf pain, No joint pain, No muscle pain, No problem reported, No see HPI, No swelling Female : + incontinence (This is not new), No abnormal vaginal bleeding, No dysuria, No hematuria, No problem reported, No see HPI, No urinary frequency, No vaginal discharge Neurologic: No balance problems, No memory loss, No numbness/tingling, No paralysis, No problem reported, No see HPI, No vertigo, No weakness Psychiatric: No anhedonism, No anxiety, No depression symptoms, No insomnia, No problem reported, No see HPI, No substance abuse Heme: No abnormal bleeding/bruising, No clotting problems, No night sweats, No problem reported, No see HPI, No swollen lymph nodes Endo: + excessive thirst (She had excessive thirst on had admission), No excessive urination, No fatigue, No problem reported, No see HPI Skin: No bleeding, No color change, No itch, No new/changing skin lesions, No problem reported, No rash, No see HPI Allergies Coded Allergies: Erythromycin (Verified Allergy, Intermediate, CONFUSION, HEADACHE, 05/11/16 ) Nitrofurantoin (Verified Allergy, Intermediate, 15 different symptoms, 02/15) Chocolate (Verified Allergy, Unknown, ., 05/11/16) Medications Current Inpatient Medications Medications (Trade) Dose Ordered Sig/[place] Route Start Time Stop Time Status Last Admin Dose Admin Acetaminophen (Tylenol Tab) 650 mg Q4H PRN PO 05/14/16 05:00 06/13/16 04:59 05/17/16 23:57 650 MG Zolpidem Tartrate (Ambien Tab) 5 mg HSZ PRN PO 05/14/16 05:00 06/13/16 04:59 05/16/16 01:46 5 MG Nitroglycerin (Nitrostat Tab) 0.4 mg UD PRN SL 05/14/16 05:00 06/13/16 04:59 Ondansetron HCl (Zofran Inj) 4 mg Q6H PRN IV 05/14/16 05:00 06/13/16 04:59 Insulin Aspart (novoLOG ASPART) SLIDING SCALE If C... ACHS SC 05/14/16 07:00 06/13/16 06:59 05/18/16 13:01 16 UNITS Glucose (Glucose 40% Gel) UD PRN PO 05/14/16 05:00 06/13/16 04:59 Glucose (Glucose Chew Tab) 1 tabs UD PRN PO 05/14/16 05:00 06/13/16 04:59 Dextrose (Dextrose 50% 50ML Syringe) 50 ml UD PRN IV 05/14/16 05:00 06/13/16 04:59 Glucagon (Glucagon Inj) 1 mg UD PRN SQ 05/14/16 05:00 06/13/16 04:59 Guaifenesin (Mucinex Contr Rel Tab) 600 mg Q12 PO 05/14/16 09:00 06/13/16 08:59 05/18/16 07:45 600 MG Lisinopril (Zestril Tab) 40 mg DAILY PO 05/14/16 09:00 06/13/16 08:59 05/18/16 07:45 40 MG Lorazepam (Ativan Tab) 0.5 mg BID PRN PO 05/14/16 05:00 06/13/16 04:59 05/14/16 22:44 0.5 MG Venlafaxine HCl (effeXOR EXTENDED REL CAP) 150 mg DAILY PO 05/14/16 09:00 06/13/16 08:59 05/18/16 07:46 150 MG Pantoprazole Sodium (Protonix Tab) 40 mg QAM PO 05/14/16 09:00 06/13/16 08:59 05/18/16 07:46 40 MG Ipratropium [place] (Atrovent 0.02% 0.5MG/2.5ML Neb) 0.5 mg Q2H PRN INH 05/14/16 05:15 06/13/16 05:14 Levalbuterol (Xopenex 1.25MG/ 0.5ML Neb) 1.25 mg Q2H PRN INH 05/14/16 05:15 06/13/16 05:14 Ketorolac Tromethamine (Toradol Inj) 15 mg Q6H PRN IV. 05/15/16 01:00 05/20/16 00:59 Salmeterol Xinafoate/ Fluticasone (Advair Diskus 100/50 Inh) 1 puff BID INH 05/15/16 21:00 06/14/16 20:59 05/18/16 07:44 1 PUFF Furosemide (Lasix tab) 40 mg DAILY PRN PO 05/15/16 12:45 06/14/16 12:44 Sitagliptin Phosphate (Januvia Tab) 100 mg DAILY PO 05/16/16 09:00 06/15/16 08:59 05/18/16 07:45 100 MG Tiotropium [place] (Spiriva Handihaler Inhaler) 1 puff QAM INH 05/16/16 09:00 06/15/16 08:59 05/18/16 07:44 1 PUFF Miconazole Nitrate (Desenex Powder) 1 appln PRN PRN EXT 05/16/16 19:15 06/15/16 19:14 Ipratropium [place] (Atrovent Hfa Inhaler) 2 puffs Q6R INH 05/17/16 15:00 06/16/16 14:59 05/18/16 14:22 2 PUFFS Levalbuterol (Xopenex Hfa Inhaler) 2 puffs Q6R INH 05/17/16 15:00 06/16/16 14:59 05/18/16 14:22 2 PUFFS Miscellaneous Information (Consult Glycemic Management Pharmacy) 1 ea UD PRN N/A 05/17/16 11:56 06/16/16 11:55 Insulin Aspart (novoLOG ASPART) SLIDING SCALE If C... 0000,0400 SC 05/18/16 00:00 06/17/16 00:00 05/18/16 04:00 5 UNITS Prednisone 20 mg 20 mg DAILY PO 05/17/16 14:00 06/16/16 13:59 05/18/16 07:45 20 MG Levofloxacin/Prmx (Levaquin / D5W/ Premixed D5W) 100 ml @ 100 mls/hr Q24H IV 05/17/16 14:00 05/27/16 13:59 05/18/16 12:54 100 MLS/HR Insulin Glargine (Lantus Solostar Pen) 30 unit BID SQ 05/18/16 21:00 06/17/16 20:59 05/18/16 09:22 30 UNIT Physical Exam Date Time Temp Pulse Resp B/P Pulse Ox O2 Delivery O2 Flow Rate FiO2 05/18/16 16:03 36.8 71 20 143/81 94 Room Air 05/18/16 08:00 93 Room Air 05/18/16 06:52 36.6 68 18 110/69 93 Room Air 05/17/16 23:55 Room Air 05/17/16 23:08 36.9 69 18 138/73 93 Room Air General Appearance: WD/WN, no apparent distress Eyes: bilateral eyes EOMI, bilateral eyes PERRL, bilateral eyes normal inspection ENT: normal ENT inspection, pharynx normal Neck: supple, no adenopathy, thyroid normal, no JVD Respiratory: lungs clear, normal breath sounds, no respiratory distress Cardiovascular: regular rate, rhythm, no gallop Abdomen: normal bowel sounds, non tender, soft Neurologic/Psychiatric: no motor/sensory deficits, alert, normal mood/affect, oriented x 3 Skin: normal color, warm/dry Lymphatic: no adenopathy Laboratory Results Last 24 Hours Test 05/17/16 16:14 05/17/16 20:03 05/18/16 00:02 05/18/16 03:50 Bedside Glucose 255 mg/dl 325 mg/dl 299 mg/dl 244 mg/dl Test 05/18/16 05:38 05/18/16 07:43 05/18/16 11:30 White Blood Count 6.98 K/uL Red Blood Count 4.22 M/uL Hemoglobin 12.1 g/dL Hematocrit 35.6 % Mean Corpuscular Volume 84.4 fL Mean Corpuscular Hemoglobin 28.7 pg Mean Corpuscular Hemoglobin Concent 34.0 g/dl Platelet Count 167 K/uL Mean Platelet Volume 10.5 fL Neutrophils (%) (Auto) 79.3 % Lymphocytes (%) (Auto) 14.2 % Monocytes (%) (Auto) 5.9 % Eosinophils (%) (Auto) 0.1 % Basophils (%) (Auto) 0.1 % Neutrophils # (Auto) 5.53 K/uL Lymphocytes # (Auto) 0.99 K/uL Monocytes # (Auto) 0.41 K/uL Eosinophils # (Auto) 0.01 K/uL Basophils # (Auto) 0.01 K/uL RDW Standard Deviation 43.8 fL RDW Coefficient of Variation 14.2 % Immature Granulocyte % (Auto) 0.4 % Immature Granulocyte # (Auto) 0.03 K/uL Sodium Level 135 mmol/L Potassium Level 4.6 mmol/L Chloride Level 97 mmol/L Carbon Dioxide Level 26 mmol/L Anion Gap 12.0 mmol/L Blood Urea Nitrogen 30 mg/dl Creatinine 1.00 mg/dl Est Creatinine Clear Calc Drug Dose 79.7 ml/min Estimated GFR () 65.6 Estimated GFR (Non- 56.6 BUN/Creatinine Ratio 29.7 Random Glucose 232 mg/dl Calcium Level 9.3 mg/dl Phosphorus Level 3.3 mg/dl Magnesium Level 2.1 mg/dl Total Bilirubin 0.3 mg/dl Aspartate Amino Transf (AST/SGOT) 8 U/L Alanine Aminotransferase (ALT/SGPT) 13 U/L Alkaline Phosphatase 84 U/L Total Protein 6.6 gm/dl Albumin 2.2 gm/dl Globulin 4.4 gm/dl Albumin/Globulin Ratio 0.5 Bedside Glucose 212 mg/dl 277 mg/dl Assessment & Plan Assessment & Plan: Temporal arteritis: Despite having an elevated sedimentation rate and puffiness over the temporal area of the bone , she does not have scalp tenderness or tenderness over the temporal artery. She has had a Rhizotomy in the past on that side. She has residual headaches from this. There are other reasons for her to have an elevated sedimentation rate at this time. Due to the fact that she has significant sugar issues my recommendation would be to reduce the prednisone. I would recommend prednisone 20 milligrams p.o. q.day on a daily basis and I need to follow her clinically. Should there be a flare in her symptoms the diagnosis of temporal arteritis would be revisited. The negative biopsy of the temporal artery was complicated by the fact that she had been on prednisone 60 milligrams p.o. q.day for 7-10 days prior to the biopsy. It is my understanding that she is going to a rehabilitation location to regain her strength. It is important that she does not run out of the prednisone as she done in the past. I would like to see the patient in 10 days to 2 weeks post discharge from the hospital. I plan to taper per the steroids off over time with close observation.
--- NOTE | 2016-05-18 19:54 | Progress Note ---
Subjective Date of Service: May 18, 2016. Subjective Pt evaluation today including: physical exam, chart review, lab review, review of studies Problem List Medical Problems: (1) Acute bronchitis Status: Acute (2) Bronchitis Status: Acute (3) Fatigue Status: Acute (4) Generalized weakness Status: Acute (5) Leukocytosis Status: Acute (6) Sepsis Status: Acute Review of Systems Constitutional: No chills, No fever Eyes: + worsening of vision ENT: No hearing loss Respiratory: No cough, No shortness of breath, No sputum Cardiac: No chest pain, No orthopnea Abdomen: No diarrhea, No nausea, No pain, No vomiting Musculoskeletal: + joint pain Female : No dysuria Psychiatric: No depression symptoms Endo: No fatigue Skin: No rash Medications Current Inpatient Medications Medications (Trade) Dose Ordered Sig/Aubree Route Start Time Stop Time Status Last Admin Dose Admin Acetaminophen (Tylenol Tab) 650 mg Q4H PRN PO 05/14/16 05:00 06/13/16 04:59 05/17/16 23:57 650 MG Zolpidem Tartrate (Ambien Tab) 5 mg HSZ PRN PO 05/14/16 05:00 06/13/16 04:59 05/16/16 01:46 5 MG Nitroglycerin (Nitrostat Tab) 0.4 mg UD PRN SL 05/14/16 05:00 06/13/16 04:59 Ondansetron HCl (Zofran Inj) 4 mg Q6H PRN IV 05/14/16 05:00 06/13/16 04:59 Insulin Aspart (novoLOG ASPART) SLIDING SCALE If C... ACHS SC 05/14/16 07:00 06/13/16 06:59 05/18/16 17:12 14 UNITS Glucose (Glucose 40% Gel) UD PRN PO 05/14/16 05:00 06/13/16 04:59 Glucose (Glucose Chew Tab) 1 tabs UD PRN PO 05/14/16 05:00 06/13/16 04:59 Dextrose (Dextrose 50% 50ML Syringe) 50 ml UD PRN IV 05/14/16 05:00 06/13/16 04:59 Glucagon (Glucagon Inj) 1 mg UD PRN SQ 05/14/16 05:00 06/13/16 04:59 Guaifenesin (Mucinex Contr Rel Tab) 600 mg Q12 PO 05/14/16 09:00 06/13/16 08:59 05/18/16 07:45 600 MG Lisinopril (Zestril Tab) 40 mg DAILY PO 05/14/16 09:00 06/13/16 08:59 05/18/16 07:45 40 MG Lorazepam (Ativan Tab) 0.5 mg BID PRN PO 05/14/16 05:00 06/13/16 04:59 05/14/16 22:44 0.5 MG Venlafaxine HCl (effeXOR EXTENDED REL CAP) 150 mg DAILY PO 05/14/16 09:00 06/13/16 08:59 05/18/16 07:46 150 MG Pantoprazole Sodium (Protonix Tab) 40 mg QAM PO 05/14/16 09:00 06/13/16 08:59 05/18/16 07:46 40 MG Ipratropium [place] (Atrovent 0.02% 0.5MG/2.5ML Neb) 0.5 mg Q2H PRN INH 05/14/16 05:15 06/13/16 05:14 Levalbuterol (Xopenex 1.25MG/ 0.5ML Neb) 1.25 mg Q2H PRN INH 05/14/16 05:15 06/13/16 05:14 Ketorolac Tromethamine (Toradol Inj) 15 mg Q6H PRN IV. 05/15/16 01:00 05/20/16 00:59 Salmeterol Xinafoate/ Fluticasone (Advair Diskus 100/50 Inh) 1 puff BID INH 05/15/16 21:00 06/14/16 20:59 05/18/16 07:44 1 PUFF Furosemide (Lasix tab) 40 mg DAILY PRN PO 05/15/16 12:45 06/14/16 12:44 Sitagliptin Phosphate (Januvia Tab) 100 mg DAILY PO 05/16/16 09:00 06/15/16 08:59 05/18/16 07:45 100 MG Tiotropium [place] (Spiriva Handihaler Inhaler) 1 puff QAM INH 05/16/16 09:00 06/15/16 08:59 05/18/16 07:44 1 PUFF Miconazole Nitrate (Desenex Powder) 1 appln PRN PRN EXT 05/16/16 19:15 06/15/16 19:14 Ipratropium [place] (Atrovent Hfa Inhaler) 2 puffs Q6R INH 05/17/16 15:00 06/16/16 14:59 05/18/16 14:22 2 PUFFS Levalbuterol (Xopenex Hfa Inhaler) 2 puffs Q6R INH 05/17/16 15:00 06/16/16 14:59 05/18/16 14:22 2 PUFFS Miscellaneous Information (Consult Glycemic Management Pharmacy) 1 ea UD PRN N/A 05/17/16 11:56 06/16/16 11:55 Insulin Aspart (novoLOG ASPART) SLIDING SCALE If C... 0000,0400 SC 05/18/16 00:00 06/17/16 00:00 05/18/16 04:00 5 UNITS Prednisone 20 mg 20 mg DAILY PO 05/17/16 14:00 06/16/16 13:59 05/18/16 07:45 20 MG Levofloxacin/Prmx (Levaquin / D5W/ Premixed D5W) 100 ml @ 100 mls/hr Q24H IV 05/17/16 14:00 05/27/16 13:59 05/18/16 12:54 100 MLS/HR Insulin Glargine (Lantus Solostar Pen) 30 unit BID SQ 05/18/16 21:00 06/17/16 20:59 05/18/16 09:22 30 UNIT Objective Vital Signs Date Time Temp Pulse Resp B/P Pulse Ox O2 Delivery O2 Flow Rate FiO2 05/18/16 16:03 36.8 71 20 143/81 94 Room Air 05/18/16 16:00 93 Room Air 05/18/16 08:00 93 Room Air 05/18/16 06:52 36.6 68 18 110/69 93 Room Air 05/17/16 23:55 Room Air 05/17/16 23:08 36.9 69 18 138/73 93 Room Air Physical Exam General Appearance: no apparent distress Eyes: normal inspection, PERRL, EOMI ENT: normal ENT inspection, hearing grossly normal, TMs normal Neck: supple Respiratory/Chest: chest non-tender, lungs clear, normal breath sounds, no respiratory distress, no accessory muscle use Cardiovascular: regular rate, rhythm, no edema, no gallop, no JVD, no murmur Abdomen: normal bowel sounds, non tender, soft, no organomegaly, no pulsatile mass Extremities: normal range of motion, non-tender, normal inspection, no pedal edema Neurologic/Psychiatric: manager fine dining II-XII nml as tested, no motor/sensory deficits, alert, normal mood/affect, oriented x 3 Skin: normal color, warm/dry, no rash Laboratory Results Last 24 Hours Test 05/17/16 20:03 05/18/16 00:02 05/18/16 03:50 05/18/16 05:38 Bedside Glucose 325 mg/dl 299 mg/dl 244 mg/dl White Blood Count 6.98 K/uL Red Blood Count 4.22 M/uL Hemoglobin 12.1 g/dL Hematocrit 35.6 % Mean Corpuscular Volume 84.4 fL Mean Corpuscular Hemoglobin 28.7 pg Mean Corpuscular Hemoglobin Concent 34.0 g/dl Platelet Count 167 K/uL Mean Platelet Volume 10.5 fL Neutrophils (%) (Auto) 79.3 % Lymphocytes (%) (Auto) 14.2 % Monocytes (%) (Auto) 5.9 % Eosinophils (%) (Auto) 0.1 % Basophils (%) (Auto) 0.1 % Neutrophils # (Auto) 5.53 K/uL Lymphocytes # (Auto) 0.99 K/uL Monocytes # (Auto) 0.41 K/uL Eosinophils # (Auto) 0.01 K/uL Basophils # (Auto) 0.01 K/uL RDW Standard Deviation 43.8 fL RDW Coefficient of Variation 14.2 % Immature Granulocyte % (Auto) 0.4 % Immature Granulocyte # (Auto) 0.03 K/uL Sodium Level 135 mmol/L Potassium Level 4.6 mmol/L Chloride Level 97 mmol/L Carbon Dioxide Level 26 mmol/L Anion Gap 12.0 mmol/L Blood Urea Nitrogen 30 mg/dl Creatinine 1.00 mg/dl Est Creatinine Clear Calc Drug Dose 79.7 ml/min Estimated GFR () 65.6 Estimated GFR (Non- 56.6 BUN/Creatinine Ratio 29.7 Random Glucose 232 mg/dl Calcium Level 9.3 mg/dl Phosphorus Level 3.3 mg/dl Magnesium Level 2.1 mg/dl Total Bilirubin 0.3 mg/dl Aspartate Amino Transf (AST/SGOT) 8 U/L Alanine Aminotransferase (ALT/SGPT) 13 U/L Alkaline Phosphatase 84 U/L Total Protein 6.6 gm/dl Albumin 2.2 gm/dl Globulin 4.4 gm/dl Albumin/Globulin Ratio 0.5 Test 05/18/16 07:43 05/18/16 11:30 05/18/16 16:40 Bedside Glucose 212 mg/dl 277 mg/dl 242 mg/dl Assessment and Plan 71 year old with S/P recent temporal artery biopsy presented with shortness of breath and hypoxia starting with URI Sx. Acute on chronic hypoxic respiratory failure Asthma / COPD exacerbation / Obesity restrictive lung disease / bronchitis - no sign of consolidation CXR- but presentation is suggestive of bronchitis, continue levofloxacin current smoker, non compliance with O/P advair (misses her night time dose) - Continue steroids and bronchodilators - Continue Advair + Spiriva - albuterol HFA prn sob/wheeze - smoking cessation - outpt PCP f/u Possible Giant Cell Arteritis - ESR last admission was 80 a 0.9 x 0.2 x 0.2 tubular artery. Multiple sections and levels are examined. No significant inflammation is noted Due to lack of enough evidence and severe uncontrolled diabetes, will taper her steroids off currently on prednisone 20mg daily never had loss of vision, but rather had double vision, has a pacemaker, can not get MRI will repeat CT head in am consulted Traffic Law Attorney Blurring of vision possible lens edema from very high blood sugar on admission consult cork molder repeat CT head R/O CVA Type 2 Diabetes Mellitus - HbA1C 8.7 consult pharmacy to adjust insulin totally out of control Daytime sleepiness - Follow up with PCP for possible need for ANJALI testing. Hypertension - continue lisinopril 40 mg PO daily. GERD - continue PPI Depression/anxiety - continue venlafaxine ER 50 mg PO daily. Urinary incontinence - continue oxybutynin chloride 5 mg by mouth 3 times a day. VTE prophylaxis - lovenox 40 mg SQ daily
[2016-05-19] MEDS: INSULIN ASPART 100 UNITS/ML 3 ML PEN SC SCH ×7 (00:20→23:33)
[2016-05-19 00:22] VITALS: BP 178/62; PULSE 73; TEMP 36.6; O2SAT 94
[2016-05-19 04:16] VITALS: BP 137/71; PULSE 67
[2016-05-19] MEDS: IPRATROPIUM BROMIDE HFA INHALER INH SCH ×4 (04:20→20:45)
[2016-05-19] MEDS: LEValbuterol HFA 15GM INHALER INH SCH ×4 (04:20→20:45)
[2016-05-19] MEDS ORDERED: METHYLPREDNISOLONE 4 MG TAB PO SCH (07:00)
[2016-05-19 07:33] LABS: BASO % 0.1 %; BASO ABS # 0.01 K/uL (0-0.2); COMPLETE YES; EOS % 1.1 %; HEMATOCRIT 38.4 % (37-47); IG% 0.7 %; LYMPH % 33.8 %; LYMPH ABS # 2.71 K/uL (1.2-3.4); MEAN CELL VOLUME 86.3 fL (80-100); MEAN CORPUSCULAR HEMOGLOBIN 29.4 pg (25-34); MEAN CORPUSCULAR HGB CONC 34.1 g/dl (32-36); MEAN PLATELET VOLUME 10.8 fL (7.4-10.4); MONO % 8.6 %; NEUT % 55.7 %; PLATELET COUNT 200 K/uL (130-400); RED BLOOD COUNT 4.45 M/uL (4.2-5.4); WHITE BLOOD COUNT 8.02 K/uL (4.8-10.8)
[2016-05-19 08:12] LABS: CALCIUM 9.7 mg/dl (8.5-10.1); POTASSIUM 4.2 mmol/L (3.5-5.1)
[2016-05-19 08:19] VITALS: BP 138/74; PULSE 62; TEMP 36.6; O2SAT 95
[2016-05-19 08:28] LABS: PHOSPHORUS 3.9 mg/dl (2.5-4.9)
--- NOTE | 2016-05-19 08:45 | Progress Note ---
Subjective Date of Service: May 19, 2016. Subjective Pt evaluation today including: conversation w/ patient, physical exam, chart review, lab review, review of studies Problem List Medical Problems: (1) Acute bronchitis Status: Acute (2) Bronchitis Status: Acute (3) Fatigue Status: Acute (4) Generalized weakness Status: Acute (5) Leukocytosis Status: Acute (6) Sepsis Status: Acute Review of Systems Constitutional: No chills, No fever Eyes: + worsening of vision, No discharge, No redness ENT: No hearing loss Respiratory: No cough, No shortness of breath, No sputum, No wheezing Cardiac: No chest pain, No orthopnea Abdomen: No nausea, No pain, No vomiting Musculoskeletal: + joint pain Female : No dysuria Neurologic: + weakness, No memory loss, No paralysis Psychiatric: No depression symptoms Heme: No abnormal bleeding/bruising Endo: + fatigue Skin: No rash Medications Current Inpatient Medications Medications (Trade) Dose Ordered Sig/Aubree Route Start Time Stop Time Status Last Admin Dose Admin Acetaminophen (Tylenol Tab) 650 mg Q4H PRN PO 05/14/16 05:00 06/13/16 04:59 05/17/16 23:57 650 MG Zolpidem Tartrate (Ambien Tab) 5 mg HSZ PRN PO 05/14/16 05:00 06/13/16 04:59 05/16/16 01:46 5 MG Nitroglycerin (Nitrostat Tab) 0.4 mg UD PRN SL 05/14/16 05:00 06/13/16 04:59 Ondansetron HCl (Zofran Inj) 4 mg Q6H PRN IV 05/14/16 05:00 06/13/16 04:59 Insulin Aspart (novoLOG ASPART) SLIDING SCALE If C... ACHS SC 05/14/16 07:00 06/13/16 06:59 05/18/16 21:36 7 UNITS Glucose (Glucose 40% Gel) UD PRN PO 05/14/16 05:00 06/13/16 04:59 Glucose (Glucose Chew Tab) 1 tabs UD PRN PO 05/14/16 05:00 06/13/16 04:59 Dextrose (Dextrose 50% 50ML Syringe) 50 ml UD PRN IV 05/14/16 05:00 06/13/16 04:59 Glucagon (Glucagon Inj) 1 mg UD PRN SQ 05/14/16 05:00 06/13/16 04:59 Guaifenesin (Mucinex Contr Rel Tab) 600 mg Q12 PO 05/14/16 09:00 06/13/16 08:59 05/18/16 21:32 600 MG Lisinopril (Zestril Tab) 40 mg DAILY PO 05/14/16 09:00 06/13/16 08:59 05/18/16 07:45 40 MG Lorazepam (Ativan Tab) 0.5 mg BID PRN PO 05/14/16 05:00 06/13/16 04:59 05/14/16 22:44 0.5 MG Venlafaxine HCl (effeXOR EXTENDED REL CAP) 150 mg DAILY PO 05/14/16 09:00 06/13/16 08:59 05/18/16 07:46 150 MG Pantoprazole Sodium (Protonix Tab) 40 mg QAM PO 05/14/16 09:00 06/13/16 08:59 05/18/16 07:46 40 MG Ipratropium [place] (Atrovent 0.02% 0.5MG/2.5ML Neb) 0.5 mg Q2H PRN INH 05/14/16 05:15 06/13/16 05:14 Levalbuterol (Xopenex 1.25MG/ 0.5ML Neb) 1.25 mg Q2H PRN INH 05/14/16 05:15 06/13/16 05:14 Ketorolac Tromethamine (Toradol Inj) 15 mg Q6H PRN IV. 05/15/16 01:00 05/20/16 00:59 Salmeterol Xinafoate/ Fluticasone (Advair Diskus 100/50 Inh) 1 puff BID INH 05/15/16 21:00 06/14/16 20:59 05/18/16 21:30 1 PUFF Furosemide (Lasix tab) 40 mg DAILY PRN PO 05/15/16 12:45 06/14/16 12:44 Sitagliptin Phosphate (Januvia Tab) 100 mg DAILY PO 05/16/16 09:00 06/15/16 08:59 05/18/16 07:45 100 MG Tiotropium [place] (Spiriva Handihaler Inhaler) 1 puff QAM INH 05/16/16 09:00 06/15/16 08:59 05/18/16 07:44 1 PUFF Miconazole Nitrate (Desenex Powder) 1 appln PRN PRN EXT 05/16/16 19:15 06/15/16 19:14 Ipratropium [place] (Atrovent Hfa Inhaler) 2 puffs Q6R INH 05/17/16 15:00 06/16/16 14:59 05/18/16 21:31 2 PUFFS Levalbuterol (Xopenex Hfa Inhaler) 2 puffs Q6R INH 05/17/16 15:00 06/16/16 14:59 05/18/16 21:31 2 PUFFS Miscellaneous Information (Consult Glycemic Management Pharmacy) 1 ea UD PRN N/A 05/17/16 11:56 06/16/16 11:55 Insulin Aspart (novoLOG ASPART) SLIDING SCALE If C... 0000,0400 SC 05/18/16 00:00 06/17/16 00:00 05/19/16 04:18 1 UNITS Prednisone 20 mg 20 mg DAILY PO 05/17/16 14:00 06/16/16 13:59 05/18/16 07:45 20 MG Levofloxacin/Prmx (Levaquin / D5W/ Premixed D5W) 100 ml @ 100 mls/hr Q24H IV 05/17/16 14:00 05/27/16 13:59 05/18/16 12:54 100 MLS/HR Insulin Glargine (Lantus Solostar Pen) 30 unit BID SQ 05/18/16 21:00 06/17/16 20:59 05/18/16 21:37 30 UNIT Objective Vital Signs Date Time Temp Pulse Resp B/P Pulse Ox O2 Delivery O2 Flow Rate FiO2 05/19/16 08:19 36.6 62 20 138/74 95 Room Air 05/19/16 08:00 Room Air 05/19/16 04:16 67 137/71 05/19/16 00:22 36.6 73 20 178/62 94 Room Air 05/19/16 00:15 Room Air 05/18/16 16:03 36.8 71 20 143/81 94 Room Air 05/18/16 16:00 93 Room Air Physical Exam General Appearance: no apparent distress, + obese Eyes: normal inspection, PERRL, EOMI ENT: normal ENT inspection, hearing grossly normal Neck: supple, thyroid normal Respiratory/Chest: chest non-tender, lungs clear, normal breath sounds, no respiratory distress, no accessory muscle use Cardiovascular: regular rate, rhythm, no edema, no gallop, no JVD, no murmur Abdomen: normal bowel sounds, non tender, soft, no organomegaly, no pulsatile mass Extremities: normal range of motion, non-tender, normal inspection, no pedal edema Neurologic/Psychiatric: field kiln burner II-XII nml as tested, no motor/sensory deficits, alert, normal mood/affect, oriented x 3 Skin: normal color, warm/dry, no rash Laboratory Results Last 24 Hours Test 05/18/16 11:30 05/18/16 16:40 05/18/16 19:57 05/19/16 00:09 Bedside Glucose 277 mg/dl 242 mg/dl 219 mg/dl 198 mg/dl Test 05/19/16 04:09 05/19/16 07:00 05/19/16 07:53 Bedside Glucose 154 mg/dl 132 mg/dl White Blood Count 8.02 K/uL Red Blood Count 4.45 M/uL Hemoglobin 13.1 g/dL Hematocrit 38.4 % Mean Corpuscular Volume 86.3 fL Mean Corpuscular Hemoglobin 29.4 pg Mean Corpuscular Hemoglobin Concent 34.1 g/dl Platelet Count 200 K/uL Mean Platelet Volume 10.8 fL Neutrophils (%) (Auto) 55.7 % Lymphocytes (%) (Auto) 33.8 % Monocytes (%) (Auto) 8.6 % Eosinophils (%) (Auto) 1.1 % Basophils (%) (Auto) 0.1 % Neutrophils # (Auto) 4.46 K/uL Lymphocytes # (Auto) 2.71 K/uL Monocytes # (Auto) 0.69 K/uL Eosinophils # (Auto) 0.09 K/uL Basophils # (Auto) 0.01 K/uL RDW Standard Deviation 45.6 fL RDW Coefficient of Variation 14.4 % Immature Granulocyte % (Auto) 0.7 % Immature Granulocyte # (Auto) 0.06 K/uL Sodium Level 137 mmol/L Potassium Level 4.2 mmol/L Chloride Level 98 mmol/L Carbon Dioxide Level 29 mmol/L Anion Gap 10.0 mmol/L Blood Urea Nitrogen 32 mg/dl Creatinine 1.00 mg/dl Est Creatinine Clear Calc Drug Dose 79.7 ml/min Estimated GFR () 65.6 Estimated GFR (Non- 56.6 BUN/Creatinine Ratio 32.0 Random Glucose 172 mg/dl Calcium Level 9.7 mg/dl Phosphorus Level 3.9 mg/dl Magnesium Level 2.0 mg/dl Assessment and Plan 71 year old with S/P recent temporal artery biopsy presented with severe generalized weakness, double / blurry vision recently treated with shortness of breath and hypoxia starting with URI Sx. was discharged on prednisone for suspected Temporal arteritis, biopsy was negative after 10 days of steroids ? Possible Giant Cell Arteritis - ESR last admission was 80 a 0.9 x 0.2 x 0.2 tubular artery. Multiple sections and levels are examined. No significant inflammation is noted Due to lack of enough evidence and severe uncontrolled diabetes, will taper her steroids off currently on prednisone 20mg daily never had loss of vision, but rather had double vision, has a pacemaker, can not get MRI will repeat CT head today consulted Consumer Loan Manager appreciated, couldn't rule out GCA, decided to continue her on 20mg prednisone daily, will see her in 2 weeks and slowly taper her steroids off with close observation as an out patient. Double/Blurring of vision possible diabetic papillopathy or retinopathy from very high blood sugar on admission recent eye exam by Dr. Sheriff was normal as per patient consult certified phlebotomy technician repeat CT head R/O CVA other differential diagnosis include optic neuritis / MS (pain with right eye movement which is not new s/p old Rhizotomy), although she is not the exact right age, MRI can not be ordered due to pace maker. will consult neurologist Acute on chronic hypoxic respiratory failure Asthma / COPD exacerbation / Obesity restrictive lung disease / bronchitis - no sign of consolidation CXR- but presentation is suggestive of bronchitis, continue levofloxacin current smoker, non compliance with O/P advair (misses her night time dose) - Continue steroids and bronchodilators - Continue Advair + Spiriva - albuterol HFA prn sob/wheeze - smoking cessation - outpt PCP f/u Type 2 Diabetes Mellitus - HbA1C 8.7 consult pharmacy to adjust insulin totally out of control Daytime sleepiness - Follow up with PCP for possible need for ANJALI testing. Hypertension - continue lisinopril 40 mg PO daily. GERD - continue PPI Depression/anxiety - continue venlafaxine ER 50 mg PO daily. Urinary incontinence - continue oxybutynin chloride 5 mg by mouth 3 times a day. VTE prophylaxis - lovenox 40 mg SQ daily
--- NOTE | 2016-05-19 09:04 | DIAGNOSTIC IMAGING REPORT ---
CT OF THE HEAD WITHOUT CONTRAST CLINICAL HISTORY: Blurring of vision. Evaluate for cerebrovascular accident. COMPARISON STUDY: Head CT June 24, 2015. CT DOSE: 614.27 mGy.cm TECHNIQUE: Helical axial images of the head were obtained without IV contrast. Automated exposure control was utilized for the study. FINDINGS: Hyperdense material within the right Meckel's cave and portions of the right aspect of the posterior fossa is unchanged and prior exam and suggests a prior glycerol rhizotomy. The appearance is unchanged since prior exam. Streak artifact from this material makes evaluation of the posterior fossa difficult. Ventricular system is stable. There are no findings to suggest acute dural sinus thrombosis or acute territorial infarct or the appearance of the brain is unchanged. No calvarial abnormality is identified. Visualized portions of the sinuses and mastoid air cells are clear. IMPRESSION: 1. No acute intracranial findings. 2. No change in hyperdense material within the right Meckel's cave and portions of the right aspect of the posterior fossa since prior exams. This suggests a prior glycerol rhizotomy. Streak artifact from this material significantly compromises visualization of the posterior fossa. Electronically signed by: Dutch Chavira M.D. 05/19/2016 9:02 AM Dictated Date/Time: 05/19/2016 8:56 AM
[2016-05-19] MEDS: VENLAFAXINE HCL XR 150 MG CAPXR PO SCH (09:11)
[2016-05-19] MEDS: PANTOprazole SOD 40 MG TAB PO SCH (09:11)
[2016-05-19] MEDS: GUAIFENESIN 600 MG TABCR PO SCH ×2 (09:11→20:46)
[2016-05-19] MEDS: LISINOPRIL 20 MG TAB PO SCH (09:11)
[2016-05-19] MEDS: SITAGLIPTIN 100 MG TAB PO SCH (09:11)
[2016-05-19] MEDS: FLUTICASONE/SALMETEROL 100/50 (ADVAIR) 14 PUFF/1 INHALER INH SCH ×2 (09:12→20:45)
[2016-05-19] MEDS: TIOTROPIUM BROMIDE 5 PUFF/90 MCG INH INH SCH (09:12)
[2016-05-19] MEDS: INSULIN GLARGINE SOLOSTAR 100 UNITS/ML 3 ML PEN SQ SCH ×2 (09:22→20:53)
[2016-05-19 11:15] VITALS: BP 134/90; PULSE 79
[2016-05-19] MEDS: LEVOFLOXACIN / D5W 500 MG in PREMIXED IN D5W 100 ML IV SCH (14:09)
[2016-05-19 15:56] VITALS: BP 152/65; PULSE 95; TEMP 37.1; O2SAT 95
--- NOTE | 2016-05-19 22:25 | CONSULTATION REPORT ---
DATE OF CONSULTATION: 05/19/2016 TIME: 6:30 p.m. I was consulted to see this patient primarily because of blurred vision involving her left eye. Sonya Alvarez is known to me. I performed a comprehensive eye examination in my office 1 month ago which was completely normal. She is diabetic. She has a 1- to -2-week history of blurred vision, mostly involving her left eye. She states that she had double vision but that has resolved. A temporal artery biopsy was negative. A head CT scan showed no evidence for an infarction. Her near vision is 20/30 in the right eye and 20/40 in her left eye. Her pupils react normally. Her extraocular movements are full. Her external eye examination is white and quiet. She also has a good red reflex in each eye. IMPRESSION: Mildly blurred vision of her left eye. I do not believe her blurred vision is very advanced compared to her recent examination in my office. She does have mild to moderate bilateral cataract formation. I have reassured Sonya that I see no acute pathology with her eye examination at this time. If she develops new or worsening symptoms, she will let me know. Otherwise she should follow up in my office once she is discharged from the hospital. Thank you for this consult.
[2016-05-19 23:53] VITALS: BP 145/68; PULSE 79; TEMP 37; O2SAT 94
[2016-05-20] MEDS: LEValbuterol HFA 15GM INHALER INH SCH ×2 (03:47→08:32)
[2016-05-20] MEDS: INSULIN ASPART 100 UNITS/ML 3 ML PEN SC SCH ×3 (03:47→12:15)
[2016-05-20] MEDS: IPRATROPIUM BROMIDE HFA INHALER INH SCH ×2 (03:47→08:32)
[2016-05-20] MEDS ORDERED: METHYLPREDNISOLONE 4 MG TAB PO SCH (07:00)
[2016-05-20 07:31] VITALS: BP 122/76; PULSE 67; TEMP 36.6; O2SAT 94
[2016-05-20 07:42] LABS: BASO % 0.2 %; BASO ABS # 0.02 K/uL (0-0.2); COMPLETE YES; EOS % 1.4 %; HEMATOCRIT 41.6 % (37-47); IG% 1.2 %; LYMPH % 35.8 %; LYMPH ABS # 4.21 K/uL (1.2-3.4); MEAN CELL VOLUME 85.8 fL (80-100); MEAN CORPUSCULAR HEMOGLOBIN 29.5 pg (25-34); MEAN CORPUSCULAR HGB CONC 34.4 g/dl (32-36); MEAN PLATELET VOLUME 10.6 fL (7.4-10.4); MONO % 7.7 %; NEUT % 53.7 %; PLATELET COUNT 265 K/uL (130-400); RED BLOOD COUNT 4.85 M/uL (4.2-5.4); WHITE BLOOD COUNT 11.77 K/uL (4.8-10.8)
[2016-05-20 08:07] LABS: BUN/CREATININE RATIO 28.7 (10-20); CALCIUM 9.8 mg/dl (8.5-10.1); POTASSIUM 4.4 mmol/L (3.5-5.1)
[2016-05-20 08:09] LABS: ALB/GLOB RATIO 0.6 (0.9-2)
[2016-05-20] MEDS ORDERED: INSDGIPEN SQ (08:23)
[2016-05-20] MEDS ORDERED: LORA-741 PO (08:23)
[2016-05-20] MEDS ORDERED: NVLGIPEN SC (08:24)
[2016-05-20] MEDS ORDERED: PRD20 PO (08:24)
--- NOTE | 2016-05-20 08:28 | Discharge Instructions ---
Discharge Instructions Admission Admission Date: May 14, 2016 at 04:56 Admission Diagnosis: Asthma Exacerbation, Hypoxia. Discharge Care Plan - Problem: Medical Problems: (1) Sepsis Care Plan - Goal(s): Improve function Care Plan - Instructions: Activity Recommendations: no limitations Recommended Home Diet: 1700 Slick Wt Reduction, AHA Phase I (2gmNa/LoCho), Type 2 Diabetes AHA Provider Instructions: monitor blood sugar closely while on prednisone when off prednisone or when prednisone dose is decreased , you will need to decrease your insulin dose VTE Core Measure Inpt VTE Proph given/why not?: Enoxaparin (Lovenox)SQ, SCD's Follow Up Follow-Up: family doctor for close adjustment to insulin dose monitor blood sugar closely while on prednisone when off prednisone or when prednisone dose is decreased , you will need to decrease your insulin dose Work Instructions Additional Instructions: monitor blood sugar closely while on prednisone when off prednisone or when prednisone dose is decreased , you will need to decrease your insulin dose Laboratory Results Test Results: Hemoglobin A1c Test 04/27/16 02:04 Range/Units Estimated Average Glucose 203 mg/dl Hemoglobin A1c 8.7 H 4.5-5.6 % Tiffanie Stoddard Recommendations: Call your doctor if: * Temperature above 101 degrees * Pain not relieved by pain medicine ordered * There is increased drainage or redness from any incision * You have any unanswered questions or concerns. Your Doctors Instructions noted above were prepared by provider Jose Antonio Killian.
[2016-05-20] MEDS: TIOTROPIUM BROMIDE 5 PUFF/90 MCG INH INH SCH (08:32)
[2016-05-20] MEDS: FLUTICASONE/SALMETEROL 100/50 (ADVAIR) 14 PUFF/1 INHALER INH SCH (08:32)
[2016-05-20] MEDS: VENLAFAXINE HCL XR 150 MG CAPXR PO SCH (08:33)
[2016-05-20] MEDS: LISINOPRIL 20 MG TAB PO SCH (08:33)
[2016-05-20] MEDS: PANTOprazole SOD 40 MG TAB PO SCH (08:34)
[2016-05-20] MEDS: GUAIFENESIN 600 MG TABCR PO SCH (08:34)
[2016-05-20] MEDS: SITAGLIPTIN 100 MG TAB PO SCH (08:34)
[2016-05-20] MEDS ORDERED: ADVIN10/60 INH (08:37)
[2016-05-20] MEDS: INSULIN GLARGINE SOLOSTAR 100 UNITS/ML 3 ML PEN SQ SCH (08:39)
--- NOTE | 2016-05-20 10:01 | Discharge Summary ---
Discharge Summary Admission Date: May 14, 2016 at 04:56 Discharge Date: May 20, 2016 Discharge Disposition: Acute care facility Immunizations: Have You Had Influenza Vaccine: Yes Influenza Vaccine Date: Mar 03, 2013 History of Tetanus Vaccine?: No History of Pneumococcal: Yes Pneumococcal Date: Mar 03, 2013 History of Hepatitis B Vaccine: No Medication Reconciliation New Medications: Insulin Aspart (Novolog Flexpen) 100 Units/Ml Inj 0 UNITS SC ACHS for 30 Days, #1 PEN as per attached sliding scale / correction factor / CHO ratio Insulin Glargine (Lantus Solostar) 100 Unit/Ml Inj 20 UNIT SQ BID for 30 Days, #1 PEN Prednisone (Prednisone) 20 Mg Tab 20 MG PO DAILY for 30 Days, #30 TAB Continued Medications: Albuterol Hfa (Ventolin Hfa) 200 Puffs/70654 Mcg Aers 2 PUFFS INH Q4H PRN for SOB/Wheezing, #1 INHALER Fluticasone Prop/Salmeterol (Advair Diskus 100/50 60 Dose) 1 Ea Aerp 2 PUFFS INH BID for 1 Day, #1 INHALER (This prescription has been renewed) Furosemide (Lasix) 40 Mg Tab 40 MG PO DAILY PRN for WEIGHT GAIN/EDEMA, TAB Lisinopril (Zestril) 20 Mg Tab 40 MG PO DAILY, TAB Lorazepam (Ativan) 0.5 Mg Tab 0.5 MG PO BID PRN for Anxiety for 15 Days, #30 TAB (This prescription has been renewed) Omeprazole (Prilosec) 20 Mg Cap 20 MG PO DAILY, CAP Sitagliptin Phosphate (Januvia) 100 Mg Tab 100 MG PO DAILY, TAB Tiotropium [place] (Spiriva Handihaler) 5 Puff/90 Mcg Aerp 1 PUFF INH QAM Venlafaxine Hcl (Venlafaxine Hcl Er) 150 Mg Tab 150 MG PO DAILY Discontinued Medications: Glimepiride (Glimepiride) 2 Mg Tab 2 MG PO TID Insulin Glargine (Lantus Solostar) 100 Unit/Ml Inj 20 UNITS SQ QAM, PEN Referrals At Discharge Follow up Referrals: Duplicating Machine Mechanic Referral - Within 1-2 Weeks with Jocelin Man MD Discharge Exam Review of Systems: Constitutional: No chills, No fever Eyes: + problem reported (some blurring of vision which improved), No diplopia, No discharge, No eye pain, No redness, No worsening of vision ENT: No dental problems, No hearing loss, No nasal symptoms, No problem reported, No sore throat, No tinnitus, No trouble swallowing, No unusual epistaxis Respiratory: No cough, No dyspnea at rest, No dyspnea on exertion, No hemoptysis, No problem reported, No shortness of breath, No sputum, No wheezing Cardiovascular: No PND, No chest pain, No claudication, No edema, No orthopnea, No palpitations, No problem reported Abdomen: No GI bleeding, No constipation, No diarrhea, No nausea, No pain, No problem reported, No vomiting Musculoskeletal: No calf pain, No joint pain, No muscle pain, No problem reported, No swelling Genitourinary - Female: No dysmenorrhea, No dysuria, No hematuria, No menorrhagia, No metrorrhagia, No , No problem reported, No rash, No urinary frequency, No urinary incontinence, No urinary retention, No urinary urgency, No vaginal bleeding, No vaginal discharge, No vaginal itching, No vulvodynia Neurologic: No balance problems, No memory loss, No numbness/tingling, No paralysis, No problem reported, No vertigo, No weakness Psychiatric: No anhedonism, No anxiety, No depression symptoms, No insomnia , No problem reported, No substance abuse Endocrine: No excessive thirst, No excessive urination, No fatigue, No problem reported Hematologic / Lymphatic: No abnormal bleeding/bruising, No clotting problems , No night sweats, No problem reported, No swollen lymph nodes Integumentary: No bleeding, No color change, No itch, No new/changing skin lesions, No problem reported, No rash Physical Exam: General Appearance: WD/WN, no apparent distress Eyes: normal inspection, PERRL, EOMI, sclerae normal ENT: normal ENT inspection, hearing grossly normal Neck: supple, thyroid normal Respiratory/Chest: chest non-tender, lungs clear, normal breath sounds, no respiratory distress, no accessory muscle use Cardiovascular: regular rate, rhythm, no edema, no gallop, no murmur, normal peripheral pulses Abdomen / GI: normal bowel sounds, non tender, soft, no pulsatile mass Extremities: normal inspection, no calf tenderness, normal capillary refill , no pedal edema Neurologic/Psychiatric: tobacco primer machine operator II-XII nml as tested, no motor/sensory deficits , alert, normal mood/affect, normal reflexes, oriented x 3 Skin: normal color, warm/dry, no rash Hospital Course 71 year old who recently awas dmitted and treated for shortness of breath and hypoxia / bronchitis was discharged on prednisone for suspected Temporal arteritis, biopsy was negative after 10 days of steroids which might have affected the result after stopping steroids X 3 days she called 911 presented with severe generalized weakness, double / blurry vision she was admitted to hospital man started on IVF and empiric Abx all blood and urine Cx were negative for her Double/Blurring of vision she continued to complain of blurring of vision but her double vision resolved Appian Bpm Developer , Dr. Sheriff who recently saw her in his office was consulted, He did not believe her blurred vision is very advanced compared to her recent examination in his office. the rest of his eye exam was normal CT head and repeat CT head after 48 hours were negative, has a pacemaker, can not get MRI for her Possible Giant Cell Arteritis - ESR last admission was 80 a 0.9 x 0.2 x 0.2 tubular artery. Multiple sections and levels are examined. No significant inflammation is noted Due to lack of enough evidence and severe uncontrolled diabetes, will taper her steroids down to 20mg daily consulted Duplicating Machine Mechanic appreciated, couldn't rule out GCA, decided to continue her on 20mg prednisone daily, will see her in 2 weeks and slowly taper her steroids off with close observation as an out patient. for her Acute on chronic hypoxic respiratory failure Asthma / COPD exacerbation / Obesity restrictive lung disease / bronchitis - no sign of consolidation CXR- but presentation is suggestive of bronchitis, continue levofloxacin current smoker, non compliance with O/P advair (misses her night time dose) - Continued steroids and bronchodilators - Continued Advair + Spiriva and albuterol HFA prn sob/wheeze for Type 2 Diabetes Mellitus - HbA1C 8.7 consult pharmacy to adjust insulin her insulin dose was increased she was instructed to monitor blood sugar closely and adjust insulin dose based on tapering her prednisone Daytime sleepiness - Follow up with PCP for possible need for ANJALI testing. for Hypertension - continued lisinopril 40 mg PO daily. for GERD - continued PPI for Depression/anxiety - continued venlafaxine ER 50 mg PO daily. for Urinary incontinence - continued oxybutynin chloride 5 mg by mouth 3 times a day. today she was found within acceptable medical condition for discharge Total Time Spent: Greater than 30 minutes This includes examination of the patient, discharge planning, medication reconciliation, and communication with other providers. Discharge Instructions Please refer to the electronic Patient Visit Report (Discharge Instructions) for additional information.
--- NOTE | 2016-05-20 10:04 | Neurology Consultation ---
Neurology Consultation Date of Consultation: May 20, 2016. Attending Physician: Jose Antonio Martini MD Primary Care Physician: Ty Obando M.D. Reason for Consultation: Blurry vision History of Present Illness Source: patient, hospital records The patient is a 71-year-old female with a chief complaint of blurry vision that began about 1 week ago and has considerably improved. The patient indicates that she initially experienced double vision, with horizontal separation of a single object most prominent when looking at objects at a distance such as on the wall. This double vision did not seem to be present when looking at objects up close. She reports that her double vision would improve closing either eye. This symptom persisted for about 2 days and seemed to resolve. However, she then began to notice persistent blurry vision when looking with the left eye only. This blurry vision seems to be present when looking either at a distance or when up close. When attempting to read, the patient complains that the lower half of the letters in her central field of view appear elongated and somewhat pale with the left eye only. She denies diplopia. She denies pain with eye movement. She denies experiencing any problems with her per referral visual field of either eye. The patient does not recall experiencing an episode of visual distortion or diplopia in the past. She does follow with Dr. Sheriff, ophthalmology, who saw her in consultation yesterday and about 1 month ago in the outpatient setting. The patient does have a history of mild cataracts. No significant ocular pathology has been identified recently. Past medical history is significant for insulin-dependent diabetes mellitus and a recent right temporal artery biopsy in the context of headaches and an elevated ESR. I reviewed the pathology report pertaining to the temporal artery biopsy. No evidence of inflammation or arteritis. The patient has also been seen by rheumatology, Dr. Man, recently and during this hospitalization. There have been a brief lapse in this patient's prednisone therapy prior to onset of her visual symptoms. Prednisone has been restarted with plans to taper off. The patient's blood glucose has been more elevated than usual in the context of her recent illness. Her last sedimentation rate was done on 04/29/2016 and was 80 at that time. This patient's history is also significant for refractory right sided trigeminal neuralgia that was diagnosed in the late followed by glycerol rhizotomy at [facility] in 1988 that has provided significant symptomatic improvement. The patient does recall experiencing an episode of right facial weakness a few weeks after this procedure. 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 She has never had a relapse of Peters's palsy or her trigeminal neuralgia. The patient has followed with Dr. Baptiste, in neurology clinic for lumbar radiculopathy that she reports responded well to an epidural steroid injection previously. Past Medical/Surgical History Medical Problems: (1) Acute bronchitis Status: Acute (2) Bronchitis Status: Acute (3) Fatigue Status: Acute (4) Generalized weakness Status: Acute (5) Leukocytosis Status: Acute (6) Sepsis Status: Acute Family History Heart disease and hypertension Social History Smoking Status: Current every day smoker Drug Use: none Marital Status: Housing Status: lives with family Occupation Status: retired Allergies Coded Allergies: Erythromycin (Verified Allergy, Intermediate, CONFUSION, HEADACHE, 05/11/16 ) Nitrofurantoin (Verified Allergy, Intermediate, 15 different symptoms, 02/15) Chocolate (Verified Allergy, Unknown, ., 05/11/16) Current Inpatient Medications Current Inpatient Medications Medications (Trade) Dose Ordered Sig/Aubree Route Start Time Stop Time Status Last Admin Dose Admin Acetaminophen (Tylenol Tab) 650 mg Q4H PRN PO 05/14/16 05:00 06/13/16 04:59 05/17/16 23:57 650 MG Zolpidem Tartrate (Ambien Tab) 5 mg HSZ PRN PO 05/14/16 05:00 06/13/16 04:59 05/16/16 01:46 5 MG Nitroglycerin (Nitrostat Tab) 0.4 mg UD PRN SL 05/14/16 05:00 06/13/16 04:59 Ondansetron HCl (Zofran Inj) 4 mg Q6H PRN IV 05/14/16 05:00 06/13/16 04:59 Insulin Aspart (novoLOG ASPART) SLIDING SCALE If C... ACHS SC 05/14/16 07:00 06/13/16 06:59 05/20/16 08:39 8 UNITS Glucose (Glucose 40% Gel) UD PRN PO 05/14/16 05:00 06/13/16 04:59 Glucose (Glucose Chew Tab) 1 tabs UD PRN PO 05/14/16 05:00 06/13/16 04:59 Dextrose (Dextrose 50% 50ML Syringe) 50 ml UD PRN IV 05/14/16 05:00 06/13/16 04:59 Glucagon (Glucagon Inj) 1 mg UD PRN SQ 05/14/16 05:00 06/13/16 04:59 Guaifenesin (Mucinex Contr Rel Tab) 600 mg Q12 PO 05/14/16 09:00 06/13/16 08:59 05/20/16 08:34 600 MG Lisinopril (Zestril Tab) 40 mg DAILY PO 05/14/16 09:00 06/13/16 08:59 05/20/16 08:33 40 MG Lorazepam (Ativan Tab) 0.5 mg BID PRN PO 05/14/16 05:00 06/13/16 04:59 05/14/16 22:44 0.5 MG Venlafaxine HCl (effeXOR EXTENDED REL CAP) 150 mg DAILY PO 05/14/16 09:00 06/13/16 08:59 05/20/16 08:33 150 MG Pantoprazole Sodium (Protonix Tab) 40 mg QAM PO 05/14/16 09:00 06/13/16 08:59 05/20/16 08:34 40 MG Ipratropium Evans (Atrovent 0.02% 0.5MG/2.5ML Neb) 0.5 mg Q2H PRN INH 05/14/16 05:15 06/13/16 05:14 Levalbuterol (Xopenex 1.25MG/ 0.5ML Neb) 1.25 mg Q2H PRN INH 05/14/16 05:15 06/13/16 05:14 Salmeterol Xinafoate/ Fluticasone (Advair Diskus 100/50 Inh) 1 puff BID INH 05/15/16 21:00 06/14/16 20:59 05/20/16 08:32 1 PUFF Furosemide (Lasix tab) 40 mg DAILY PRN PO 05/15/16 12:45 06/14/16 12:44 Sitagliptin Phosphate (Januvia Tab) 100 mg DAILY PO 05/16/16 09:00 06/15/16 08:59 05/20/16 08:34 100 MG Tiotropium Evans (Spiriva Handihaler Inhaler) 1 puff QAM INH 05/16/16 09:00 06/15/16 08:59 05/20/16 08:32 1 PUFF Miconazole Nitrate (Desenex Powder) 1 appln PRN PRN EXT 05/16/16 19:15 06/15/16 19:14 Ipratropium Evans (Atrovent Hfa Inhaler) 2 puffs Q6R INH 05/17/16 15:00 06/16/16 14:59 05/20/16 08:32 2 PUFFS Levalbuterol (Xopenex Hfa Inhaler) 2 puffs Q6R INH 05/17/16 15:00 06/16/16 14:59 05/20/16 08:32 2 PUFFS Miscellaneous Information (Consult Glycemic Management Pharmacy) 1 ea UD PRN N/A 05/17/16 11:56 06/16/16 11:55 Insulin Aspart (novoLOG ASPART) SLIDING SCALE If C... 0000,0400 SC 05/18/16 00:00 06/17/16 00:00 05/19/16 04:18 1 UNITS Prednisone (PredniSONE TAB) 20 mg DAILY PO 05/17/16 14:00 06/16/16 13:59 05/20/16 08:33 20 MG Insulin Glargine (Lantus Solostar Pen) 30 unit BID SQ 05/18/16 21:00 06/17/16 20:59 05/20/16 08:39 30 UNIT Levofloxacin (Levaquin Tab) 500 mg DAILY@11 PO 05/20/16 11:00 05/26/16 11:01 Review of Systems Positive for cough, fever, musculoskeletal aches and pains, diaphoresis at the time of presentation, now resolved. Currently negative for fever, chills, vision loss, pain with eye movement, hearing loss, vertigo, chest pain, palpitations, coughing, wheezing, abdominal pain, diarrhea, dysuria, myalgias, weakness, depression, anxiety, skin lesions, easy bleeding, or swollen glands. A full 10 point review of systems was obtained from this patient and is as described in the history of present illness and otherwise listed above. Physical Exam Vital Signs (Past 24 Hrs): Date Time Temp Pulse Resp B/P Pulse Ox O2 Delivery O2 Flow Rate FiO2 05/20/16 08:30 Room Air 05/20/16 07:31 36.6 67 20 122/76 94 05/20/16 00:00 Room Air 05/19/16 23:53 37.0 79 18 145/68 94 Room Air 05/19/16 16:18 Room Air 05/19/16 15:56 37.1 95 18 152/65 95 Room Air 05/19/16 11:15 79 The patient is an obese elderly female. She is sitting up comfortably in the bedside chair. No acute distress. She is alert and oriented to person place and time. Attention and concentration normal. Recent and remote memory intact. Naming and repetition intact. She exhibits a normal spontaneous speech pattern as well as a normal fund of knowledge and vocabulary. Visual cary are full to confrontation. Visual acuity intact for finger counting and reading text with both eyes. However, the patient complains of a visual distortion with the left eye, specifically the lower half of letters in the text she is reading. The lower half of the individual letters appears elongated and somewhat pale. She does not perceive any double vision when looking up close or at a distance in the hospital from. She does not report any pain when looking [id number] or up or down with either eye. Pupils equal round reactive to light and accommodation bilaterally. There is no afferent pupillary defect. Eye movements intact. There is no nystagmus. Facial sensation intact for the upper mid and lower face bilaterally. There is mild weakness of the upper and lower right facial musculature with subtle weakness of right eyelid closure (according to the patient this issue is chronic and related to an old Peters's palsy). Hearing intact to finger rub bilaterally. Palate elevates to midline. Tongue protrudes to midline. Shoulder shrug strength intact bilaterally. There is diminished sensation to vibration at the ankles. Light touch, temperature, and proprioception intact for the upper and lower limbs. Deep tendon reflexes are 1 + for the upper and lower limbs. Achilles tendon reflexes absent. Plantar responses silent. There is no dysmetria with finger to nose or heel to torres bilaterally. There is no difficulty with rapid alternating movement. Ophthalmoscopic examination reveals normal-appearing optic nerves and posterior segments. There is no papilledema. No hemorrhages. Carotid pulses normal bilaterally to auscultation. No bruits. Musculoskeletal examination reveals intact strength proximally and distally for the upper and lower limbs bilaterally. She arises from a chair without difficulty. Muscle tone normal throughout. There is no atrophy. No abnormal movements observed. Gait is a bit unsteady appearing, perhaps slightly ataxic. (Patient indicates that she usually ambulates with a walker). Laboratory Results Past 24 Hours: 05/20/16 07:00 Red Blood Count 4.85, Mean Corpuscular Volume 85.8, Mean Corpuscular Hemoglobin 29.5, Mean Corpuscular Hemoglobin Concent 34.4, Mean Platelet Volume 10.6, Neutrophils (%) (Auto) 53.7, Lymphocytes (%) (Auto) 35.8, Monocytes (%) (Auto) 7.7, Eosinophils (%) (Auto) 1.4, Basophils (%) (Auto) 0.2, Neutrophils # (Auto) 6.32, Lymphocytes # (Auto) 4.21, Monocytes # (Auto) 0.91, Eosinophils # (Auto) 0.17, Basophils # (Auto) 0.02 05/20/16 07:00 Test 05/19/16 11:31 05/20/16 07:00 Bedside Glucose 203 mg/dl (70-90) White Blood Count 11.77 K/uL (4.8-10.8) Red Blood Count 4.85 M/uL (4.2-5.4) Hemoglobin 14.3 g/dL (12.0-16.0) Hematocrit 41.6 % (37-47) Mean Corpuscular Volume 85.8 fL (80-100) Mean Corpuscular Hemoglobin 29.5 pg (25-34) Mean Corpuscular Hemoglobin Concent 34.4 g/dl (32-36) Platelet Count 265 K/uL (130-400) Mean Platelet Volume 10.6 fL (7.4-10.4) Neutrophils (%) (Auto) 53.7 % Lymphocytes (%) (Auto) 35.8 % Monocytes (%) (Auto) 7.7 % Eosinophils (%) (Auto) 1.4 % Basophils (%) (Auto) 0.2 % Neutrophils # (Auto) 6.32 K/uL (1.4-6.5) Lymphocytes # (Auto) 4.21 K/uL (1.2-3.4) Monocytes # (Auto) 0.91 K/uL (0.11-0.59) Eosinophils # (Auto) 0.17 K/uL (0-0.5) Basophils # (Auto) 0.02 K/uL (0-0.2) RDW Standard Deviation 45.3 fL (36.4-46.3) RDW Coefficient of Variation 14.5 % (11.5-14.5) Immature Granulocyte % (Auto) 1.2 % Immature Granulocyte # (Auto) 0.14 K/uL (0.00-0.02) Anion Gap 9.0 mmol/L (3-11) Est Creatinine Clear Calc Drug Dose 79.7 ml/min Estimated GFR () 65.6 Estimated GFR (Non- 56.6 BUN/Creatinine Ratio 28.7 (10-20) Calcium Level 9.8 mg/dl (8.5-10.1) Total Bilirubin 0.4 mg/dl (0.2-1) Aspartate Amino Transf (AST/SGOT) 13 U/L (15-37) Alanine Aminotransferase (ALT/SGPT) 22 U/L (12-78) Alkaline Phosphatase 86 U/L (45-117) Total Protein 7.2 gm/dl (6.4-8.2) Albumin 2.8 gm/dl (3.4-5.0) Globulin 4.4 gm/dl (2.5-4.0) Albumin/Globulin Ratio 0.6 (0.9-2) Imaging I reviewed the images and radiologist's impression of the most recently completed CT of the head as well as 2 previous studies done at [facility]. There has been no significant interval change in the studies. There is considerable streaking artifact related to hyperdense material within the right Meckel's cave/posterior fossa. There is no evidence of acute hemorrhage or other acute process. There is mild cortical atrophy which is a bit more prominent over the posterior parietal and occipital lobes. Cerebral ventricles are normal size. Impression Persistent, improving, vision disturbance, apparently affecting the inferior aspect of central vision of the left eye only which the patient describes as a visual distortion or elongation and lightening of printed text. She does not have associated ocular pain. Her pupils react normally and I do not find evidence of a gross visual field deficit with bedside confrontation testing. Her reported symptoms could be consistent with a mild optic neuropathy related to either her diabetes or recent prednisone use. I'm unable to completely exclude retinal pathology although no gross abnormalities were found with Dr. Sheriff's recent ophthalmologic examination. This patient's diplopia upon presentation resolved after 2 days and may have been consistent with a transient abducens palsy that may have also been related to either her diabetes or recent prednisone use. Her clinical history is not suggestive of myasthenia gravis. Chronic, mild, residual Peters's palsy which reportedly occurred 1-2 weeks after right trigeminal nerve rhizotomy in 1988 for refractory trigeminal neuralgia, now in remission. Multiple sclerosis is not expected on clinical grounds and would certainly be difficult to diagnose without access to MRI given her cardiac pacer. Plan This patient should follow-up with Dr. Sheriff, her rod mill operator for ongoing monitoring of her vision. I do not really have any further testing or treatment recommendations for this patient at this time. She will follow-up with Dr. Man, her shoe sprayer as well. Please contact me if I may be of further assistance. If further neurological assessment is requested, she may follow-up with Dr. Baptiste who has seen her previously.
[2016-05-20] MEDS ORDERED: LEVOFLOXACIN 500 MG TAB PO SCH (11:00)
[2016-05-20 14:41] VITALS: BP 135/67; PULSE 91; TEMP 36.9; O2SAT 94
[2016-05-20 15:08] VITALS: BP 135/67; PULSE 91; TEMP 36.9; O2SAT 94
[2016-05-21] MEDS ORDERED: METHYLPREDNISOLONE 4 MG TAB PO SCH (07:00)
[2016-06-09] MEDS ORDERED: GFNSR600 PO (08:49)
[2016-06-09] MEDS ORDERED: PRD20 PO (08:49)
[2016-06-09] MEDS ORDERED: OXGN (13:56)
== END 2016-05-20 16:16 | DRG 189 ==
LOC: ENRESERVTM → ENRESERVDT → EDBD 02:32 → C.EDB 02:34 → C.2T 04:56 → C.MS2W 05-15 11:38
PROVIDERS: ADMIT Hospitalist; ATTEND Internal Medicine
DX: J96.21 Acute and chronic respiratory failure with hypoxia (principal); J44.1 Chronic obstructive pulmonary disease with (acute) exacerbation; J45.901 Unspecified asthma with (acute) exacerbation; Z68.43 Body mass index [BMI] 50.0-59.9, adult; E66.2 Morbid (severe) obesity with alveolar hypoventilation; J44.0 Chronic obstructive pulmonary disease with (acute) lower respiratory infection; J20.9 Acute bronchitis, unspecified; H53.2 Diplopia; H26.9 Unspecified cataract; E11.65 Type 2 diabetes mellitus with hyperglycemia; E86.0 Dehydration; M31.6 Other giant cell arteritis; R51 Headache; R53.81 Other malaise; I10 Essential (primary) hypertension; K21.9 Gastro-esophageal reflux disease without esophagitis; R32 Unspecified urinary incontinence; F32.9 Major depressive disorder, single episode, unspecified; F41.9 Anxiety disorder, unspecified; F17.210 Nicotine dependence, cigarettes, uncomplicated; Z91.14 Patient's other noncompliance with medication regimen; Z95.0 Presence of cardiac pacemaker; Z86.69 Personal history of other diseases of the nervous system and sense organs; Z79.4 Long term (current) use of insulin; Z79.51 Long term (current) use of inhaled steroids; Z79.84 Long term (current) use of oral hypoglycemic drugs; Z79.899 Other long term (current) drug therapy

== ENCOUNTER 2016-05-31 13:59 | Inpatient (IN) | payer BC, OTHER ==
[~2016-05-31] VITALS: Ht 170.2 cm; Wt 150.3 kg
[~2016-05-31 13:59] MED LIST changes: -ACETAMINOPHEN 500 MG TAB PO STA; -DXY100 PO; +FRS/40 PO; -HYDR-5688 PO; -INSDGIPEN SC; -ONDANSETRON INJ 2 MG/ML 2 ML VIAL IV STA; -PRVHFAIN INH; +SITA100T3 PO; -SODIUM CHLORIDE 0.9% 500ML 500 ML IV STA; +VNTHFA/IN INH
[2016-05-31] MEDS ORDERED: ALBUT/IPRATROP 3MG/0.5MG NEB 3 ML VIAL INH STA ×2 (16:29→19:01)
--- NOTE | 2016-05-31 16:39 | EMERGENCY ROOM VISIT NOTE ---
History Report prepared by Iraj: Linda Flores Under the Supervision of: Dr. Waylon Kurtz D.O. First contact with patient: 16:22 Chief Complaint: SHORTNESS OF BREATH Stated Complaint: SOB, COUGH, CONGESTION Nursing Triage Summary: Pt c/o cough and SOB since Tuesday "I think it's my bronchitis, this is my fourth time this month" History of Present Illness The patient is a 71 year old female who presents to the Emergency Room with complaints of severe and persistent shortness of breath starting 3 days ago. She also complains of a productive cough, throat pain, and weakness. She reports feeling hot and cold but denies any fevers. She has chronic lower extremity edema. The patient denies chest pain, abdominal pain, or any other complaints. She has been evaluated in the Emergency Room two times this month for similar symptoms. She reports her current symptoms are similar to her past bronchitis symptoms. She also has a history of asthma, diabetes, and has a pacemaker in place. Her son has had a cough. Source of History: patient Onset: 3 days ago Position: other (global) Symptom Intensity: severe Quality: other (shortness of breath) Timing: other (persistent) Associated Symptoms: + cough, + weakness, No abdominal pain, No chest pain Review of Systems See HPI for pertinent positives & negatives. A total of 10 systems reviewed and were otherwise negative. Past Medical & Surgical Medical Problems: (1) Asthma (2) Asthma exacerbation (3) Bronchitis with asthma, acute (4) Diabetes (5) Dyspnea (6) HTN (hypertension) (7) Pacemaker (8) Rectal abscess (9) Temporal giant cell arteritis (10) Vertigo Surgical Problems: (1) rhizotomy (2) S/P cholecystectomy (3) S/P hysterectomy (4) S/P knee replacement Family History Heart disease Hypertension Social History Smoking Status: Former Smoker Drug Use: none Marital Status: Housing Status: lives with family Occupation Status: retired Current/Historical Medications Scheduled Fluticasone Prop/Salmeterol (Advair Diskus 100/50 60 Dose), 1 PUFF INH BID Insulin Glargine (Lantus Solostar), 20 UNIT SQ BID Lisinopril (Zestril), 40 MG PO BID Omeprazole (Prilosec), 20 MG PO DAILY Prednisone (Prednisone), 20 MG PO DAILY Sitagliptin Phosphate (Januvia), 100 MG PO DAILY Tiotropium [place] (Spiriva Handihaler), 1 PUFF INH QAM Venlafaxine Hcl (Venlafaxine Hcl Er), 150 MG PO DAILY [Amaryl], 1 TAB PO BID Scheduled PRN Albuterol Hfa (Ventolin Hfa), 2 PUFFS INH Q4H PRN for SOB/Wheezing Furosemide (Lasix), 40 MG PO DAILY PRN for WEIGHT GAIN/EDEMA Lorazepam (Ativan), 0.5 MG PO BID PRN for Anxiety Allergies Coded Allergies: Erythromycin (Verified Allergy, Intermediate, CONFUSION, HEADACHE, 05/31/16 ) Nitrofurantoin (Verified Allergy, Intermediate, 15 different symptoms, ) Chocolate (Verified Allergy, Unknown, ., 05/31/16) Physical Exam Vital Signs Date Time Temp Pulse Resp B/P Pulse Ox O2 Delivery O2 Flow Rate FiO2 05/31/16 18:57 81 18 103/64 96 Nasal Cannula 2.0 05/31/16 17:59 86 Room Air 05/31/16 17:59 94 Nasal Cannula 2.0 05/31/16 17:39 82 05/31/16 17:24 80 20 109/64 96 Room Air 05/31/16 17:16 94 Room Air 05/31/16 17:16 94 Room Air 05/31/16 14:03 36.4 82 20 152/73 94 Room Air Physical Exam GENERAL: Patient is awake, alert, very anxious, appears significantly dyspneic after walking from the bathroom. EYES: The conjunctivae are clear. The pupils are round and reactive. EARS, NOSE, MOUTH AND THROAT: The nose is without any evidence of any deformity. Mucous membranes are moist tongue is midline. Mild erythema noted in the posterior oropharynx. NECK: The neck is nontender and supple. RESPIRATORY: Lung sounds are diminished throughout, significant tachypnea and conversational dyspnea, expiratory wheezing in both upper lung cary. CARDIOVASCULAR: Regular rate and rhythm noted there no murmurs rubs or gallops normal S1 normal S2 GASTROINTESTINAL: The abdomen is soft. Bowel sounds are present in all quadrants. Abdomen is nontender MUSCULOSKELETAL/EXTREMITIES: There is no evidence of gross deformity full range of motion is noted in the hips and shoulders SKIN: There is no obvious evidence of any rash. There are no petechiae, pallor or cyanosis noted. Pedal edema bilaterally. NEUROLOGIC: Patient is awake alert and oriented x3 Medical Decision & Procedures ER Provider Diagnostic Interpretation: X ray results and stated below per my interpretation and radiology interpretation. CT results per my review and radiologist interpretation: CT ANGIOGRAM OF THE CHEST CLINICAL HISTORY: Respiratory distress. Suspected acute pulmonary embolism. COMPARISON STUDY: Chest x-ray dated 05/31/2016 TECHNIQUE: Following the IV administration of 90 mL of Optiray-320, CT angiogram of the thorax was performed from the thoracic inlet to the lung bases utilizing the pulmonary embolus protocol. Images are reviewed in the axial, sagittal, and coronal planes. IV contrast was administered without complication. MIP imaging was performed. CT DOSE: 765.99 mGy.cm FINDINGS: There is a left subclavian dual-chamber central venous pacemaker present. There are calcified subcarinal lymph nodes. Right hilar lymph nodes are the upper limits of normal in size. There is no evidence of pathologic axillary lymphadenopathy. There was no evidence of thoracic aortic dilatation. There were no pulmonary artery filling defects to indicate acute pulmonary embolism. No pleural effusions are visualized. There is mild dependent atelectasis. There is no focal pulmonary consolidation. There is a calcified right upper lobe granuloma. Evaluation is limited due to respiratory motion artifact. There is an ovoid 3.6 mm subpleural right middle lobe pulmonary nodule. This has low suspicion imaging characteristics. IMPRESSION: 1. No CT evidence of acute pulmonary embolism 2. No evidence of focal pulmonary consolidation 3. Bibasilar atelectasis Electronically signed by: José Miguel Almeida M.D. 05/31/2016 6:51 PM Dictated Date/Time: 05/31/2016 6:46 PM CHEST ONE VIEW PORTABLE HISTORY: EVALUATE RESPIRATORY DISTRESS.DYSPNEA COMPARISON: Chest 05/16/2016. FINDINGS: Stable calcified granuloma within the right upper lobe. A few linear densities at the left lung base consistent with subsegmental atelectasis. The lungs are otherwise clear. No pleural effusions. No pneumothorax. The heart remains mildly enlarged. There is a left-sided dual-chamber pacemaker. IMPRESSION: No significant change compared to the prior study. No acute process. Stable mild cardiomegaly. Electronically signed by: Romero Spaulding M.D. 05/31/2016 4:41 PM Dictated Date/Time: 05/31/2016 4:40 PM Laboratory Results Test 05/31/16 16:50 05/31/16 17:19 Prothrombin Time 10.7 SECONDS (9.0-12.0) Prothromb Time International Ratio 1.0 (0.9-1.1) Activated Partial Thromboplast Time 26.1 SECONDS (21.0-31.0) Partial Thromboplastin Ratio 1.0 D-Dimer 420 ug/L FEU (0-500) Total Bilirubin 0.4 mg/dl (0.2-1) Aspartate Amino Transf (AST/SGOT) 13 U/L (15-37) Alanine Aminotransferase (ALT/SGPT) 27 U/L (12-78) Alkaline Phosphatase 97 U/L (45-117) Total Creatine Kinase 24 U/L (26-192) Creatine Kinase MB 1.0 ng/ml (0.5-3.6) Creatine Kinase MB Ratio 4.2 (0-3.0) Troponin I < 0.015 ng/ml (0-0.045) Pro-B-Type Natriuretic Peptide 93 pg/ml (0-900) Total Protein 7.3 gm/dl (6.4-8.2) Albumin 3.4 gm/dl (3.4-5.0) Globulin 3.9 gm/dl (2.5-4.0) Albumin/Globulin Ratio 0.9 (0.9-2) Influenza Type A Antigen Neg for Influ A (NEG) Influenza Type B Antigen Neg for Influ B (NEG) Laboratory results per my review. Medications Administered Medications (Trade) Dose Ordered Sig/Aubree Route Start Time Stop Time Status Last Admin Dose Admin Albuterol/ Ipratropium (Duoneb) 3 ml NOW STAT INH 05/31/16 16:29 05/31/16 16:31 DC 05/31/16 17:15 3 ML Methylprednisolone Sodium Succinate (Solu-Medrol IV) 125 mg NOW STAT IV 05/31/16 19:01 05/31/16 19:03 DC 05/31/16 19:12 125 MG Albuterol/ Ipratropium 3 ml 3 ml NOW STAT INH 05/31/16 19:01 05/31/16 19:03 DC 05/31/16 19:13 3 ML Sodium Chloride (Nss 1000ml) 1,000 ml @ 999 mls/hr Q1H1M STAT IV 05/31/16 19:10 05/31/16 20:10 DC 05/31/16 19:14 999 MLS/HR ECG Indication: SOB/dyspnea Rate (beats per minute): 81 Rhythm: normal sinus Findings: RBBB, no ectopy Comparison ECG Date: May 16, 2016 Change: no significant change ED Course 162: The patient was evaluated in room B04B. A complete history and physical examination were performed. 162: DuoNeb 3 ml INH 175: I reevaluated the patient who is resting comfortably. 1900: DuoNeb 3 ml INH, Solu-Medrol IV 125 mg IV 1902: I reevaluated the patient who is doing well. I discussed results and treatment plan with her. She verbalizes agreement and understanding. The patient will be evaluated for further management and care. 1909: Sodium Chloride 1000 ml @ 999 mls/hr IV 1938: I discussed the patient's case with Dr. Cano, from [facility]. Medical Decision Differential diagnosis: Etiologies such as infections, reactive airway disease, pneumonia, pneumothorax , COPD, CHF, cardiac ischemia, pulmonary embolism, musculoskeletal, gastrointestinal, as well as others were entertained. Nursing notes were reviewed. The patient is a 71-year-old female who presented to the emergency department for an evaluation of shortness of breath and cough. The patient was treated earlier this month for similar complaints. She's been on antibiotics as well as steroids. She presents to the emergency department tonight with much worsening symptoms. She had very significant dyspnea on exertion. She had significant conversational dyspnea and hypoxia after just walking from the bathroom to her bed. The patient had a CT the chest to rule out pulmonary embolism because of significant hypoxia. This did not show any acute disease. She did not have any definite infiltrate. She was treated with bronchodilator therapy and steroids in the emergency department. At rest she was having significant improvement. Because of the degree of hypoxia I discussed her case with the on-call [facility]. They've agreed to evaluate the patient in the emergency department for further management and disposition. Consults Time Called: [id number] Consulting Physician: Dr. Cano, from [facility] Returned Call: 1938 I discussed the patient's case with Dr. Cano, from [facility]. Impression Primary Impression: Bronchitis Additional Impressions: Hypoxia SOB (shortness of breath) Scribe Attestation The scribe's documentation has been prepared under my direction and personally reviewed by me in its entirety. I confirm that the note above accurately reflects all work, treatment, procedures, and medical decision making performed by me. Departure Information Dispostion Being Evaluated By Hospitalist Referrals Ty Obando M.D. (PCP) Patient Instructions My [facility] Problem Qualifiers
[2016-05-31] MEDS ORDERED: ADVIN10/60 INH (16:41)
--- NOTE | 2016-05-31 16:42 | DIAGNOSTIC IMAGING REPORT ---
CHEST ONE VIEW PORTABLE HISTORY: EVALUATE RESPIRATORY DISTRESS.DYSPNEA COMPARISON: Chest 05/16/2016. FINDINGS: Stable calcified granuloma within the right upper lobe. A few linear densities at the left lung base consistent with subsegmental atelectasis. The lungs are otherwise clear. No pleural effusions. No pneumothorax. The heart remains mildly enlarged. There is a left-sided dual-chamber pacemaker. IMPRESSION: No significant change compared to the prior study. No acute process. Stable mild cardiomegaly. Electronically signed by: Romero Spaulding M.D. 05/31/2016 4:41 PM Dictated Date/Time: 05/31/2016 4:40 PM
[2016-05-31] MEDS ORDERED: AMARYL PO (16:45)
[2016-05-31 17:00] LABS: BASO % 0.2 %; BASO ABS # 0.02 K/uL (0-0.2); COMPLETE YES; EOS % 0.3 %; HEMATOCRIT 43.1 % (37-47); IG% 1.4 %; LYMPH % 9.1 %; LYMPH ABS # 0.87 K/uL (1.2-3.4); MEAN CORPUSCULAR HGB CONC 32.9 g/dl (32-36); MEAN PLATELET VOLUME 10.7 fL (7.4-10.4); MONO % 9.1 %; NEUT % 79.9 %; PLATELET COUNT 227 K/uL (130-400); WHITE BLOOD COUNT 9.53 K/uL (4.8-10.8)
[2016-05-31 17:11] LABS: PROTHROMBIN TIME (PATIENT) 10.7 SECONDS (9.0-12.0)
[2016-05-31 17:17] LABS: BLOOD UREA NITROGEN 18 mg/dl (7-18); BUN/CREATININE RATIO 17.9 (10-20); CALCIUM 9.2 mg/dl (8.5-10.1); CARBON DIOXIDE 27 mmol/L (21-32); CHLORIDE 100 mmol/L (98-107); GLUCOSE 181 mg/dl (70-99); POTASSIUM 4.4 mmol/L (3.5-5.1); SODIUM 137 mmol/L (136-145)
[2016-05-31 17:38] LABS: ALB/GLOB RATIO 0.9 (0.9-2); ALKALINE PHOSPHATASE 97 U/L (45-117); ALT/SGPT 27 U/L (12-78); AST/SGOT 13 U/L (15-37); CKMB/CK RATIO 4.2 (0-3.0)
[2016-05-31] MEDS ORDERED: OPTIRAY 320 IV PRN (18:15)
--- NOTE | 2016-05-31 18:53 | DIAGNOSTIC IMAGING REPORT ---
CT ANGIOGRAM OF THE CHEST CLINICAL HISTORY: Respiratory distress. Suspected acute pulmonary embolism. COMPARISON STUDY: Chest x-ray dated 05/31/2016 TECHNIQUE: Following the IV administration of 90 mL of Optiray-320, CT angiogram of the thorax was performed from the thoracic inlet to the lung bases utilizing the pulmonary embolus protocol. Images are reviewed in the axial, sagittal, and coronal planes. IV contrast was administered without complication. MIP imaging was performed. CT DOSE: 765.99 mGy.cm FINDINGS: There is a left subclavian dual-chamber central venous pacemaker present. There are calcified subcarinal lymph nodes. Right hilar lymph nodes are the upper limits of normal in size. There is no evidence of pathologic axillary lymphadenopathy. There was no evidence of thoracic aortic dilatation. There were no pulmonary artery filling defects to indicate acute pulmonary embolism. No pleural effusions are visualized. There is mild dependent atelectasis. There is no focal pulmonary consolidation. There is a calcified right upper lobe granuloma. Evaluation is limited due to respiratory motion artifact. There is an ovoid 3.6 mm subpleural right middle lobe pulmonary nodule. This has low suspicion imaging characteristics. IMPRESSION: 1. No CT evidence of acute pulmonary embolism 2. No evidence of focal pulmonary consolidation 3. Bibasilar atelectasis Electronically signed by: José Miguel Almeida M.D. 05/31/2016 6:51 PM Dictated Date/Time: 05/31/2016 6:46 PM
[2016-05-31] MEDS ORDERED: METHYLPREDNISOLONE 125 MG VIAL IV STA (19:01)
[2016-05-31] MEDS ORDERED: SODIUM CHLORIDE 0.9% 1000ML 1,000 ML IV STA (19:10)
[2016-05-31] MEDS ORDERED: ONDANSETRON INJ 2 MG/ML 2 ML VIAL IV PRN (19:45)
[2016-05-31] MEDS ORDERED: ACETAMINOPHEN 325 MG TAB PO PRN (19:45)
[2016-05-31] MEDS ORDERED: ALBUTEROL 0.083% NEBU SOLN 3 ML VIAL INH PRN (19:45)
[2016-05-31] MEDS ORDERED: POLYETHYLENE (MIRALAX) 17 GM PACK PO PRN (19:45)
[2016-05-31] MEDS ORDERED: ALUMINUM/MAGNESIUM/SIMETH (MAALOX MAX) 30 ML UDC PO PRN (19:45)
[2016-05-31] MEDS ORDERED: MAGNESIUM HYDROXIDE SUSP 30 ML UDC PO PRN (19:45)
--- NOTE | 2016-05-31 19:55 | History and Physical ---
History & Physical Date & Time of Service: May 31, 2016 at 19:50 Chief Complaint: Sob, Cough, Congestion Primary Care Physician: Ty Obando M.D. History of Present Illness Source: patient 71 y/o morbidly obese F w/Hx DM, HTN, pacer - presents for the 3rd time in a one month period for persistent dyspnea which is largely exertional. During her 2 previous admissions she was treated for bronchitis with steroids, nebulizers and antibiotics but appears to relapse as the treatments taper off. She denies CP, fevers or a productive cough. She reports she was wheezing prior to a breathing treatment in the ER. A CT chest was obtained which is significant only for bibasilar atelectasis. She was also recently evaluated by Ophthalmology and neurology due to blurred vision although this does not figure into her presenting complaint. Past Medical/Surgical History Medical Problems: (1) Asthma Status: Chronic (2) Diabetes Status: Chronic (3) HTN (hypertension) Status: Chronic (4) Pacemaker Status: Chronic (5) Rectal abscess Status: Resolved (6) Vertigo Status: Chronic Surgical Problems: (1) rhizotomy Status: Resolved (2) S/P cholecystectomy Status: Resolved (3) S/P hysterectomy Status: Resolved (4) S/P knee replacement Status: Resolved Family History Heart disease Hypertension Social History Smoking Status: Former Smoker Drug Use: none Marital Status: Occupational Status: retired Immunizations History of Influenza Vaccine: Yes Influenza Vaccine Date: Mar 03, 2013 History of Tetanus Vaccine?: No History of Pneumococcal: Yes Pneumococcal Date: Mar 03, 2013 History of Hepatitis B Vaccine: No Multi-Drug Resistant Organisms History of MDRO: No Allergies Coded Allergies: Erythromycin (Verified Allergy, Intermediate, CONFUSION, HEADACHE, 05/31/16 ) Nitrofurantoin (Verified Allergy, Intermediate, 15 different symptoms, ) Chocolate (Verified Allergy, Unknown, ., 05/31/16) Home Medications Scheduled Fluticasone Prop/Salmeterol (Advair Diskus 100/50 60 Dose), 1 PUFF INH BID Insulin Glargine (Lantus Solostar), 20 UNIT SQ BID Lisinopril (Zestril), 40 MG PO BID Omeprazole (Prilosec), 20 MG PO DAILY Prednisone (Prednisone), 20 MG PO DAILY Sitagliptin Phosphate (Januvia), 100 MG PO DAILY Tiotropium [place] (Spiriva Handihaler), 1 PUFF INH QAM Venlafaxine Hcl (Venlafaxine Hcl Er), 150 MG PO DAILY [Amaryl], 1 TAB PO BID Scheduled PRN Albuterol Hfa (Ventolin Hfa), 2 PUFFS INH Q4H PRN for SOB/Wheezing Furosemide (Lasix), 40 MG PO DAILY PRN for WEIGHT GAIN/EDEMA Lorazepam (Ativan), 0.5 MG PO BID PRN for Anxiety Review of Systems Constitutional: No chills, No fever, No sweats Eyes: No eye pain, No worsening of vision ENT: No hearing loss, No nasal symptoms, No unusual epistaxis Respiratory: + dyspnea at rest, + dyspnea on exertion, + shortness of breath, + wheezing, No cough, No sputum Cardiovascular: No PND, No chest pain, No orthopnea Abdomen: No nausea, No pain, No vomiting Musculoskeletal: No joint pain, No muscle pain Genitourinary - Female: No dysuria, No urinary frequency, No urinary urgency Neurologic: No memory loss, No paralysis, No weakness Psychiatric: No depression symptoms Endocrine: + fatigue Hematologic / Lymphatic: No abnormal bleeding/bruising Integumentary: + problem reported (Chronic erythema over LEs), + rash Allergic / Immunologic: No environmental allergies Physical Exam Vital Signs Date Time Temp Pulse Resp B/P Pulse Ox O2 Delivery O2 Flow Rate FiO2 05/31/16 18:57 81 18 103/64 96 Nasal Cannula 2.0 05/31/16 17:59 86 Room Air 05/31/16 17:59 94 Nasal Cannula 2.0 05/31/16 17:39 82 05/31/16 17:24 80 20 109/64 96 Room Air 05/31/16 17:16 94 Room Air 05/31/16 17:16 94 Room Air 05/31/16 14:03 36.4 82 20 152/73 94 Room Air General Appearance: WD/WN, no apparent distress Head: normocephalic Eyes: normal inspection ENT: normal ENT inspection Neck: supple, no adenopathy Respiratory/Chest: chest non-tender, no respiratory distress, + accessory muscle use, + wheezing Cardiovascular: regular rate, rhythm, no edema, no gallop, + pertinent finding (Exam limited by habitus - minimal B/L LE edema) Abdomen/GI: normal bowel sounds, non tender, soft Back: normal inspection, no CVA tenderness Extremities/Musculoskelatal: normal inspection, no calf tenderness, normal capillary refill, normal range of motion, + pedal edema Neurologic/Psych: 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, no motor/sensory deficits, alert, normal mood/affect, normal reflexes, oriented x 3 Skin: normal color, + pertinent finding (Mild erythema and scaling over LEs) Diagnostics Laboratory Results Results Past 24 Hours Test 05/31/16 16:50 05/31/16 17:19 Range/Units White Blood Count 9.53 4.8-10.8 K/uL Red Blood Count 4.90 4.2-5.4 M/uL Hemoglobin 14.2 12.0-16.0 g/dL Hematocrit 43.1 37-47 % Mean Corpuscular Volume 88.0 80-100 fL Mean Corpuscular Hemoglobin 29.0 25-34 pg Mean Corpuscular Hemoglobin Concent 32.9 32-36 g/dl Platelet Count 227 130-400 K/uL Mean Platelet Volume 10.7 7.4-10.4 fL Neutrophils (%) (Auto) 79.9 % Lymphocytes (%) (Auto) 9.1 % Monocytes (%) (Auto) 9.1 % Eosinophils (%) (Auto) 0.3 % Basophils (%) (Auto) 0.2 % Neutrophils # (Auto) 7.61 1.4-6.5 K/uL Lymphocytes # (Auto) 0.87 1.2-3.4 K/uL Monocytes # (Auto) 0.87 0.11-0.59 K/uL Eosinophils # (Auto) 0.03 0-0.5 K/uL Basophils # (Auto) 0.02 0-0.2 K/uL RDW Standard Deviation 46.8 36.4-46.3 fL RDW Coefficient of Variation 14.7 11.5-14.5 % Immature Granulocyte % (Auto) 1.4 % Immature Granulocyte # (Auto) 0.13 0.00-0.02 K/uL Prothrombin Time 10.7 9.0-12.0 SECONDS Prothromb Time International Ratio 1.0 0.9-1.1 Activated Partial Thromboplast Time 26.1 21.0-31.0 SECONDS Partial Thromboplastin Ratio 1.0 D-Dimer 420 0-500 ug/L FEU Sodium Level 137 136-145 mmol/L Potassium Level 4.4 3.5-5.1 mmol/L Chloride Level 100 98-107 mmol/L Carbon Dioxide Level 27 21-32 mmol/L Anion Gap 10.0 3-11 mmol/L Blood Urea Nitrogen 18 7-18 mg/dl Creatinine 1.00 0.60-1.20 mg/dl Est Creatinine Clear Calc Drug Dose 78.8 ml/min Estimated GFR () 65.6 Estimated GFR (Non- 56.6 BUN/Creatinine Ratio 17.9 10-20 Random Glucose 181 70-99 mg/dl Calcium Level 9.2 8.5-10.1 mg/dl Total Bilirubin 0.4 0.2-1 mg/dl Aspartate Amino Transf (AST/SGOT) 13 15-37 U/L Alanine Aminotransferase (ALT/SGPT) 27 12-78 U/L Alkaline Phosphatase 97 45-117 U/L Total Creatine Kinase 24 26-192 U/L Creatine Kinase MB 1.0 0.5-3.6 ng/ml Creatine Kinase MB Ratio 4.2 0-3.0 Troponin I < 0.015 0-0.045 ng/ml Pro-B-Type Natriuretic Peptide 93 0-900 pg/ml Total Protein 7.3 6.4-8.2 gm/dl Albumin 3.4 3.4-5.0 gm/dl Globulin 3.9 2.5-4.0 gm/dl Albumin/Globulin Ratio 0.9 0.9-2 Influenza Type A Antigen Neg for Influ A NEG Influenza Type B Antigen Neg for Influ B NEG Diagnostic Radiology CTA: Bibasilar atelectasis - no PE, no PNM EKG Sinus - RBBB Impression Assessment and Plan 71 y/o morbidly obese F w/Hx DM, HTN, pacer - presents for the 3rd time in a one month period for persistent dyspnea which is largely exertional. During her 2 previous admissions she was treated for bronchitis with steroids, nebulizers and antibiotics but appears to relapse as the treatments taper off. A CT chest was obtained which is significant only for bibasilar atelectasis. 1) SOB - persistent / recurrent - pt does exhibit wheezing so that this may be chronic bronchitis requiring a more extensive treatment course. She may also be experiencing the effects of bronchitis in addition to a low reserve due to obesity hypoventilation and resultant atelectasis adding a restrictive element. There is no clear evidence of cardiac involvement although this too is in the differential and her habitus defies accurate volume status assessment. We will start treatment for bronchitis with steroids and nebs as this has been effective for limited periods. We will consult Pulmonology as this is her 3rd visit in a 1 mo period. We will obtain a complete echo in the AM and may consult cardiology based on the result. Eventual evaluation for ANJALI would be prudent as well. 2) HTN - cont Lisinopril - PRN Lasix 3) DM - sliding scale and Glargine ordered 4) Pacer - rate-dependent - pt in sinus rhythm at 80BPM on admission without pacer activity on EKG - can f/u with cardio Total time for this admit including chart review - review of meds, labs, ekg, CT - discussion with ER attending and Pt - 37 min Full code - Heparin prophylaxis Level of Care Med/Surg Resuscitation Status FULL RESUSCITATION VTE Prophylaxis VTE Risk Assessment Done? Y/N: Yes Risk Level: Moderate Given or contraindicated: Unfractionated heparin SQ
[2016-05-31] MEDS: ALBUT/IPRATROP 3MG/0.5MG NEB 3 ML VIAL INH SCH (20:00)
[2016-05-31] MEDS ORDERED: FLUTICASONE/SALMETEROL 100/50 (ADVAIR) 14 PUFF/1 INHALER INH SCH (21:00)
[2016-05-31 21:32] VITALS: BP 138/81; PULSE 85; TEMP 36.7; O2SAT 95; BMI 51.9
[2016-05-31] MEDS: INSULIN ASPART 100 UNITS/ML 3 ML PEN SC SCH (22:12)
[2016-05-31] MEDS: HEPARIN SOD 5000 UNIT/0.5 ML CARP SQ SCH (22:13)
[2016-05-31] MEDS: LISINOPRIL 20 MG TAB PO SCH (22:17)
[2016-05-31] MEDS: INSULIN GLARGINE SOLOSTAR 100 UNITS/ML 3 ML PEN SQ SCH (22:18)
[2016-06-01] MEDS: METHYLPREDNISOLONE IV 40 MG in SYRINGE 0 ML IV SCH ×4 (01:25→20:34)
[2016-06-01] MEDS: LORAZEPAM 0.5 MG TAB PO PRN ×2 (01:27→20:35)
[2016-06-01] MEDS: HEPARIN SOD 5000 UNIT/0.5 ML CARP SQ SCH ×3 (05:46→20:44)
[2016-06-01 07:08] VITALS: BP 142/63; PULSE 72; TEMP 36.8; O2SAT 95
[2016-06-01] MEDS: ALBUT/IPRATROP 3MG/0.5MG NEB 3 ML VIAL INH SCH ×4 (07:10→19:12)
[2016-06-01] MEDS: VENLAFAXINE HCL XR 150 MG CAPXR PO SCH (08:29)
[2016-06-01] MEDS: PANTOprazole SOD 40 MG TAB PO SCH (08:29)
[2016-06-01] MEDS: INSULIN GLARGINE SOLOSTAR 100 UNITS/ML 3 ML PEN SQ SCH ×2 (08:33→20:43)
[2016-06-01] MEDS: INSULIN ASPART 100 UNITS/ML 3 ML PEN SC SCH ×4 (08:33→20:43)
[2016-06-01] MEDS: LISINOPRIL 20 MG TAB PO SCH ×2 (08:34→20:35)
[2016-06-01 09:08] LABS: BASO % 0.2 %; BASO ABS # 0.01 K/uL (0-0.2); COMPLETE YES; IG% 1.5 %; LYMPH % 12.8 %; LYMPH ABS # 0.77 K/uL (1.2-3.4); MEAN CELL VOLUME 88.1 fL (80-100); MEAN CORPUSCULAR HEMOGLOBIN 29.4 pg (25-34); MEAN CORPUSCULAR HGB CONC 33.3 g/dl (32-36); MEAN PLATELET VOLUME 10.6 fL (7.4-10.4); MONO % 2.7 %; NEUT % 82.8 %; PLATELET COUNT 245 K/uL (130-400); RED BLOOD COUNT 4.77 M/uL (4.2-5.4); WHITE BLOOD COUNT 6.03 K/uL (4.8-10.8)
[2016-06-01 09:34] LABS: BUN/CREATININE RATIO 19.2 (10-20); C-REACTIVE PROTEIN 3.18 mg/dl (0-0.29); CALCIUM 8.8 mg/dl (8.5-10.1); MAGNESIUM 1.9 mg/dl (1.8-2.4); POTASSIUM 4.5 mmol/L (3.5-5.1)
[2016-06-01 09:47] LABS: BETA-HYDROXYBUTYRATE 1.76 mg/dL (0.2-2.81)
[2016-06-01] MEDS ORDERED: NURSING VERBAL MED ORDER ONE (10:45)
[2016-06-01] MEDS ORDERED: GLUCOSE 10 TABS/TUBE PO PRN (11:00)
[2016-06-01] MEDS ORDERED: DEXTROSE 50% 50 ML SYR IV PRN (11:00)
[2016-06-01] MEDS ORDERED: INSULIN GLARGINE SOLOSTAR 100 UNITS/ML 3 ML PEN SC ONE (11:00)
[2016-06-01] MEDS ORDERED: GLUCOSE 40% GEL 15 GM TUBE PO PRN (11:00)
[2016-06-01] MEDS ORDERED: GLUCAGON FOR INJ 1 MG VIAL SQ PRN (11:00)
[2016-06-01 11:22] VITALS: PULSE 88; O2SAT 94
--- NOTE | 2016-06-01 13:04 | Hospitalist Progress Note ---
Hospitalist Progress Note Date of Service Jun 01, 2016. Subjective Pt evaluation today including: conversation w/ patient, physical exam, chart review, lab review, review of studies, conversation w/ marine engineering consultant (Pul[facility]), review of inpatient medication list Feeling much better already.Less SOB. Still with some left eye blurry vision. Eating and not wearing NC O2 and not SOB Constitutional: No fever Eyes: + worsening of vision ENT: No problem reported Respiratory: + dyspnea on exertion, + shortness of breath Cardiovascular: No chest pain Abdomen: No diarrhea, No pain Skin: No rash All Other Systems: Reviewed and Negative Objective Vital Signs Date Time Temp Pulse Resp B/P Pulse Ox O2 Delivery O2 Flow Rate FiO2 06/01/16 11:22 88 18 94 Room Air 06/01/16 08:00 Nasal Cannula 2.0 06/01/16 07:08 36.8 72 20 142/63 95 Nasal Cannula 2.0 06/01/16 00:00 Room Air 05/31/16 21:32 36.7 85 16 138/81 95 Nasal Cannula 2.0 05/31/16 20:57 83 20 113/65 95 05/31/16 18:57 81 18 103/64 96 Nasal Cannula 2.0 05/31/16 17:59 86 Room Air 05/31/16 17:59 94 Nasal Cannula 2.0 05/31/16 17:39 82 05/31/16 17:24 80 20 109/64 96 Room Air 05/31/16 17:16 94 Room Air 05/31/16 17:16 94 Room Air 05/31/16 14:03 36.4 82 20 152/73 94 Room Air Physical Exam General Appearance: WD/WN, no apparent distress, + obese Eyes: normal inspection, sclerae normal ENT: hearing grossly normal Neck: trachea midline Respiratory/Chest: + decreased breath sounds (diminished throughout, morbidly obese body habitus), + wheezing (mostly in upper airways, insp and exp) Cardiovascular: regular rate, rhythm, no gallop, no murmur, + pertinent finding (trace pitting edema legs bilat) Abdomen: non tender, soft (and morbidly obese) Extremities: + pertinent finding (trace pitting edema legs to mid tibia bilat, chronic venous stasis changes bilat) Neurologic/Psychiatric: alert, normal mood/affect, oriented x 3 Laboratory Results Last 24 Hours Test 05/31/16 16:50 05/31/16 17:19 05/31/16 21:20 06/01/16 07:49 White Blood Count 9.53 K/uL Red Blood Count 4.90 M/uL Hemoglobin 14.2 g/dL Hematocrit 43.1 % Mean Corpuscular Volume 88.0 fL Mean Corpuscular Hemoglobin 29.0 pg Mean Corpuscular Hemoglobin Concent 32.9 g/dl Platelet Count 227 K/uL Mean Platelet Volume 10.7 fL Neutrophils (%) (Auto) 79.9 % Lymphocytes (%) (Auto) 9.1 % Monocytes (%) (Auto) 9.1 % Eosinophils (%) (Auto) 0.3 % Basophils (%) (Auto) 0.2 % Neutrophils # (Auto) 7.61 K/uL Lymphocytes # (Auto) 0.87 K/uL Monocytes # (Auto) 0.87 K/uL Eosinophils # (Auto) 0.03 K/uL Basophils # (Auto) 0.02 K/uL RDW Standard Deviation 46.8 fL RDW Coefficient of Variation 14.7 % Immature Granulocyte % (Auto) 1.4 % Immature Granulocyte # (Auto) 0.13 K/uL Prothrombin Time 10.7 SECONDS Prothromb Time International Ratio 1.0 Activated Partial Thromboplast Time 26.1 SECONDS Partial Thromboplastin Ratio 1.0 D-Dimer 420 ug/L FEU Sodium Level 137 mmol/L Potassium Level 4.4 mmol/L Chloride Level 100 mmol/L Carbon Dioxide Level 27 mmol/L Anion Gap 10.0 mmol/L Blood Urea Nitrogen 18 mg/dl Creatinine 1.00 mg/dl Est Creatinine Clear Calc Drug Dose 78.8 ml/min Estimated GFR () 65.6 Estimated GFR (Non- 56.6 BUN/Creatinine Ratio 17.9 Random Glucose 181 mg/dl Calcium Level 9.2 mg/dl Total Bilirubin 0.4 mg/dl Aspartate Amino Transf (AST/SGOT) 13 U/L Alanine Aminotransferase (ALT/SGPT) 27 U/L Alkaline Phosphatase 97 U/L Total Creatine Kinase 24 U/L Creatine Kinase MB 1.0 ng/ml Creatine Kinase MB Ratio 4.2 Troponin I < 0.015 ng/ml Pro-B-Type Natriuretic Peptide 93 pg/ml Total Protein 7.3 gm/dl Albumin 3.4 gm/dl Globulin 3.9 gm/dl Albumin/Globulin Ratio 0.9 Influenza Type A Antigen Neg for Influ A Influenza Type B Antigen Neg for Influ B Bedside Glucose 250 mg/dl 276 mg/dl Test 06/01/16 08:55 06/01/16 11:38 White Blood Count 6.03 K/uL Red Blood Count 4.77 M/uL Hemoglobin 14.0 g/dL Hematocrit 42.0 % Mean Corpuscular Volume 88.1 fL Mean Corpuscular Hemoglobin 29.4 pg Mean Corpuscular Hemoglobin Concent 33.3 g/dl Platelet Count 245 K/uL Mean Platelet Volume 10.6 fL Neutrophils (%) (Auto) 82.8 % Lymphocytes (%) (Auto) 12.8 % Monocytes (%) (Auto) 2.7 % Eosinophils (%) (Auto) 0.0 % Basophils (%) (Auto) 0.2 % Neutrophils # (Auto) 5.00 K/uL Lymphocytes # (Auto) 0.77 K/uL Monocytes # (Auto) 0.16 K/uL Eosinophils # (Auto) 0.00 K/uL Basophils # (Auto) 0.01 K/uL RDW Standard Deviation 46.6 fL RDW Coefficient of Variation 14.4 % Immature Granulocyte % (Auto) 1.5 % Immature Granulocyte # (Auto) 0.09 K/uL Erythrocyte Sedimentation Rate 43 mm/hr Sodium Level 135 mmol/L Potassium Level 4.5 mmol/L Chloride Level 99 mmol/L Carbon Dioxide Level 25 mmol/L Anion Gap 11.0 mmol/L Blood Urea Nitrogen 19 mg/dl Creatinine 1.00 mg/dl Est Creatinine Clear Calc Drug Dose 79.1 ml/min Estimated GFR () 65.6 Estimated GFR (Non- 56.6 BUN/Creatinine Ratio 19.2 Random Glucose 321 mg/dl Calcium Level 8.8 mg/dl Magnesium Level 1.9 mg/dl C-Reactive Protein 3.18 mg/dl Beta-Hydroxybutyric Acid 1.76 mg/dL Bedside Glucose 276 mg/dl Assessment and Plan 71 y/o morbidly obese F w/Hx DMII, HTN, pacer implanted for trifascicular block and syncope, and COPD/asthma- presents for the 3rd time in a one month period for persistent dyspnea which is largely exertional. During her 2 previous admissions she was treated for bronchitis with steroids, nebulizers and antibiotics but appears to relapse as the treatments taper off. A CT chest was obtained which is significant for bibasilar atelectasis. 1) SOB - persistent / recurrent - pt does exhibit wheezing so that this may be chronic bronchitis requiring a more extensive treatment course. She may also be experiencing the effects of bronchitis in addition to a low reserve due to obesity hypoventilation and resultant atelectasis adding a restrictive element. There is no clear evidence of cardiac involvement although this too is in the differential and her habitus defies accurate volume status assessment. -continue treatment for bronchitis with IV steroids and nebs -taper down steroids to home taper when possible clinically -consult Pulmonology -obtain a complete echo in the AM and consult cardiology for opinion on if her DALE is cardiac related? Last ischemic eval 2013, last ECHO 2013 -Eventual evaluation for ANJALI would be prudent as well. She wants to wait until after her bladder botox injections so she does not have overnight incontinence during an outpt sleep study -add Mucinex 2) HTN - cont Lisinopril - PRN Lasix 3) DMII-with hyperglycemia secondary to steroids- sliding scale and Glargine ordered 4) Pacer - rate-dependent - pt in sinus rhythm at 80BPM on admission without pacer activity on EKG -consulting Cardio as above Full code - Heparin prophylaxis
--- NOTE | 2016-06-01 14:20 | DIAGNOSTIC IMAGING REPORT ---
SINUSES MIN 3 VIEWS ROUTINE CLINICAL HISTORY: chronic cough dyspnea COMPARISON STUDY: None FINDINGS: All major sinuses are clear. Osseous structures are intact. IMPRESSION: Negative study Electronically signed by: Alexander King M.D. 06/01/2016 2:18 PM Dictated Date/Time: 06/01/2016 2:17 PM
[2016-06-01] MEDS: LEVOFLOXACIN 500 MG TAB PO SCH (14:24)
[2016-06-01] MEDS: FLUTICASONE/SALMETEROL 250/50 (ADVAIR) 14 PUFF/1 INHALER INH SCH ×2 (14:25→20:34)
[2016-06-01 14:38] VITALS: BMI 51.9
[2016-06-01] MEDS ORDERED: ALBUTEROL 0.083% NEBU SOLN 3 ML VIAL INH PRN (15:00)
[2016-06-01 15:02] VITALS: PULSE 86; O2SAT 96
--- NOTE | 2016-06-01 15:03 | CONSULTATION REPORT ---
DATE OF CONSULTATION: 06/01/2016 DATE OF CONSULTATION: 06/01/2016. REASON FOR CONSULTATION: Recurrent asthma/chronic obstructive pulmonary disease exacerbation. HISTORY OF PRESENT ILLNESS: The patient is a 71-year-old female who has significant past medical history for asthma, a mixed obstructive and restrictive lung disease, right bundle branch block, trifascicular block requiring pacemaker, syncopal episode secondary to prior hypertension, arthritis, depression, gastroesophageal reflux disease, hydronephrosis with left kidney, hematuria who was admitted to [facility] on 05/31/2016 with worsening of her breathing again. The patient reports that initially started prior to [place] where she had a respiratory infection. The patient was actually admitted to [facility] 04/27/2016 for asthma exacerbation with hypoxia. At that time she presented with difficulty breathing. O2 saturation was 88% on room air. The patient was hospitalized for 4 days and discharged on 05/01/2016 with diagnosis of asthmatic bronchitis. She was discharged on doxycycline and Ventolin as well as continuation of her Advair. The patient was also discharged on 60 mg daily of prednisone. The patient states that she took 60 mg until it was gone. She did not taper at all and couple of days after finishing up the prednisone she has got very shaky, had some vision changes, got very confused, body aches and presented to the ER again. At that time when she arrived her oxygen saturation was 89% on room air and she was placed on oxygen again. During that hospitalization she was found to have an elevated sed rate, she did have workup by Dr. Sheriff for blurred and double vision. There was a question of a possible giant cell arteritis. She did undergo a temporal artery biopsy which did not show anything and her steroids were tapered down to 20 mg daily due to the elevated sed rate. She was discharged on 20 mg daily. During that admission, she was also evaluated for acute on chronic hypoxic respiratory failure with asthma/COPD exacerbation, obesity, restrictive lung disease. She was treated with steroids and bronchodilators and was advised to continue her Advair and Spiriva. The patient states that she actually spent 1 day at rehab and then left because she did not like it there. The patient states that she was doing well until about 2 days ago and she started with significant cough again. She started with significant shortness of breath. Her cough is productive of yellow, brown mucus. She does have wheezing. She had some weakness. She is unsure if there are any fever or chills. Because of this and because of her previous difficulties with her breathing requiring hospitalization. She did present to [facility] again. The patient does report that during her stay at rehab, she did have a PPD done and she has a pj on her arm. She states that the PPD was never truly read but she has a reddened area on her arm. She does not remember if the area got raised or not. The patient reports that today her breathing is better than what it was upon admission. She states that she is less congested, she is less tight in her chest. She has less shortness of breath. Again she has not had any fever or chills that she is aware of. No sweats. She has not had any cardiac symptoms. She denies any chest pain. Denies any palpitations. Denies any chest heaviness or tightness. She denies any GI symptoms at this time. She states that she has never really had any issues with swallowing or food going down wrong. She states that occasionally she will have a cough with something going down incorrectly. She denies any problems with nausea or vomiting, no diarrhea, no constipation. She does have a little bit of swelling in her legs although nothing significant. She has no difficulty voiding. She has some chronic pain and numbness in her legs from peripheral neuropathy. She did have pulmonary function testing done in October 2015 that showed a moderate mixed obstructive/restrictive abnormality with a forced vital capacity of 2.26 liters which is 67% predicted and FEV1 of 1.46 which is 58% predicted, FEV1/FVC ratio 67%. She did have a CT angiogram done in the Emergency Room on 05/31/2016 which showed some bibasilar atelectasis, otherwise no abnormality. PAST MEDICAL HISTORY: Includes restrictive airways disease, obstructive airway disease, diabetes mellitus, hypertension, rectal abscess, vertigo, first degree AV block, arthritis, depression, gastroesophageal reflux disease, hydronephrosis left kidney, hematuria, right bundle branch block, elevated sed rate. PAST SURGICAL HISTORY: Includes rhizotomy, cholecystectomy, hysterectomy, total knee replacement, temporal artery biopsy, colonoscopy, dilation and curettage, pacemaker implantation. FAMILY HISTORY: Includes coronary artery disease, hypertension. SOCIAL HISTORY: The patient is a former smoker having smoked "socially" for the past 5 years. The patient also has significant smoke exposure as both her parents smoked while she was a child. Currently, she is retired and lives in a trailer with her son. HOME MEDICATIONS: Include Advair Diskus 100/50 one puff b.i.d., Lantus 20 units subQ b.i.d., lisinopril 40 mg twice daily, omeprazole 20 mg daily, prednisone 20 mg daily, Januvia 100 mg daily, Spiriva HandiHaler 1 puff daily, Effexor 150 mg daily, Amaryl 1 tablet twice daily, Ventolin 2 puffs q. 4 hours as needed, furosemide 40 mg daily as needed, lorazepam 0.5 mg twice daily as needed. ALLERGIES: ERYTHROMYCIN, NITROFURANTOIN AND CHOCOLATE. REVIEW OF SYSTEMS: As above, otherwise unremarkable. PHYSICAL EXAMINATION: GENERAL: The patient is a elderly white female lying in bed. She is alert and oriented x3. Mood is good. Affect is good. She is able to talk in complete sentences without becoming dyspneic. She is interactive and cooperative. She is alert and oriented. VITAL SIGNS: Temp 36.8, pulse 72, respirations 20, blood pressure is 142/63, pulse ox 95% on 2 liters. HEAD, EYES, EARS, NOSE, AND THROAT: Normocephalic, atraumatic. Pupils equal, round and react to light and accommodation. Extraocular movements are intact. [place] moist gingival and buccal mucosa. NECK: Short and thick, no mass, no adenopathy, no bruit noted. No JVD. CHEST: The patient has wheezing diffusely on the left side with fair to good air movement throughout. She does have some wheezing in the right upper lobe area. No rale or rhonchi appreciated. CARDIOVASCULAR: Regular rate and rhythm. No murmurs, gallops or rubs appreciated. ABDOMEN: Bowel sounds are present. Abdomen soft, obese, nontender. No guarding, rigidity or organomegaly. EXTREMITIES: Trace edema bilaterally, no erythema, mildly tender to palpation. NEUROLOGIC: Cranial nerves II through XII are intact. No focal deficit. LABORATORY DATA: Shows white count 6000, H\\T\\H 14.0 and 42.0, platelet count of 245,000. BUN 19, creatinine 1.0, Influenza A and B negative. CT of the chest shows some chronic changes as well as evidence for bibasilar atelectatic changes. No CT evidence of acute pulmonary embolus. IMPRESSION: Ms. Alvarez is a 71-year-old white female with significant past medical history. The patient has been having exacerbation of her breathing at this time, unsure of the etiology. I think that it is just patient's asthma/chronic obstructive pulmonary disease that is flaring up. I would recommend that continue Solu-Medrol 40 q. 4 with her wheezing today. I would recommend increase her Advair to 250/50 one puff twice a day. I would recommend to change her DuoNeb to q. 4 hours while awake. I would like her to have a sputum culture and in light of the green mucus discoloration she was getting I would like for the patient to be started on Levaquin 500 mg daily as the patient has also been hospitalized multiple times in the last 30 days. I would like for the patient to have a video swallow, sputum culture, Mucinex 600 mg twice daily. I would like for her to have a sinus x-ray and alpha 1 antitrypsin level done. In light of the patient's questionable abnormality on her PPD may like to either repeat the PPD or do the gold study for tuberculosis. Suspicion for tuberculosis is relatively low although patient reports that she has had a couple of different male partners since her and some of them have had breathing problems. PLAN: At this point, I still want her to have a flutter valve and incentive spirometer. We will continue to follow through hospitalization. Thank you for the consultation on this patient. Patient discussed and I agree with the above plan. PATRICIA
[2016-06-01] MEDS ORDERED: PERFLUTREN LIPID MICROSPHERE (DEFINITY) IV ONE (15:12)
[2016-06-01 15:36] VITALS: BP 146/79; PULSE 72; TEMP 36.6; O2SAT 92
--- NOTE | 2016-06-01 16:40 | Cardiology Consultation ---
Cardiology Consultation Date of Consultation: Jun 01, 2016. Requesting Physician: Dr. Hook Attending Physician: Dr. Villar Reason for Consultation: Dyspnea on exertion Pt evaluation today including: conversation w/ patient, physical exam, chart review, lab review, review of studies, review of inpatient medication list, conversation w/ attending History of Present Illness Mrs. 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 This is her third admission for shortness of breath and hypoxia in the last month. During her previous two admissions, she was treated with steroids, nebulizers, and antibiotics. She reports that her most recent symptoms of cough and shortness of breath began on Tuesday. Her shortness of breath is worse on exertion. She has had phlegm production with her cough. She denies weight gain or edema. She always sleeps in a recliner. She denies chest discomfort or other anginal type symptoms. She notes occasional lightheadedness with standing. She denies syncope, presyncope, abnormal bleeding, or cerebrovascular symptoms. Review of Systems: As noted in HPI. All other ROS otherwise negative. Family History Heart disease Hypertension Sister age 53 of unknown heart condition. Social History Smoking Status: Former Smoker History of Alcohol Use: No She is a . She has 2 sons, 6 grandchildren, and 3 great grandchildren. She smoked 1-4 cigarettes daily for about 5 years, but quit on 04/24/16. She denies alcohol or drug use. Review of Systems Respiratory: + dyspnea on exertion, + shortness of breath Cardiac: No chest pain Allergies Coded Allergies: Erythromycin (Verified Allergy, Intermediate, CONFUSION, HEADACHE, 05/31/16 ) Nitrofurantoin (Verified Allergy, Intermediate, 15 different symptoms, ) Chocolate (Verified Allergy, Unknown, ., 05/31/16) Medications Current Inpatient Medications Medications (Trade) Dose Ordered Sig/Aubree Route Start Time Stop Time Status Last Admin Dose Admin Ioversol (Optiray 320) 100 ml UD PRN IV 05/31/16 18:15 06/04/16 18:14 Heparin Sodium (Porcine) (Heparin Sq 5000 Unit/0.5ml) 5,000 unit Q8H SQ 05/31/16 22:00 06/30/16 21:59 06/01/16 14:28 5,000 UNIT Acetaminophen (Tylenol Tab) 650 mg Q4H PRN PO 05/31/16 19:45 06/30/16 19:44 Al Hydrox/Mg Hydrox/Simethicone (Maalox Max Susp) 15 ml Q4H PRN PO 05/31/16 19:45 06/30/16 19:44 Magnesium Hydroxide (Milk Of Magnesia Susp) 30 ml Q6H PRN PO 05/31/16 19:45 06/30/16 19:44 Polyethylene (Miralax Powder Packet) 17 gm DAILY PRN PO 05/31/16 19:45 06/30/16 19:44 Ondansetron HCl (Zofran Inj) 4 mg Q6H PRN IV 05/31/16 19:45 06/30/16 19:44 Insulin Glargine (Lantus Solostar Pen) 20 unit BID SQ 05/31/16 21:00 06/30/16 20:59 06/01/16 08:33 20 UNIT Lisinopril (Zestril Tab) 40 mg BID PO 05/31/16 21:00 06/30/16 20:59 06/01/16 08:34 40 MG Lorazepam (Ativan Tab) 0.5 mg BID PRN PO 05/31/16 19:45 06/30/16 19:44 06/01/16 01:27 0.5 MG Venlafaxine HCl (effeXOR EXTENDED REL CAP) 150 mg DAILY PO 06/01/16 08:00 07/01/16 08:59 06/01/16 08:29 150 MG Pantoprazole Sodium (Protonix Tab) 40 mg DAILY PO 06/01/16 08:00 07/01/16 08:59 06/01/16 08:29 40 MG Insulin Aspart SLIDING SCALE G... ACHS SC 05/31/16 21:00 06/30/16 20:59 06/01/16 12:42 7 UNITS Methylprednisolone Sodium Succinate/ Syringe (Solu-Medrol IV/ Syringe) 0.64 ml @ 1.5 mls/min Q6H IV 06/01/16 02:00 07/01/16 01:59 06/01/16 14:25 1.5 MLS/MIN Glucose (Glucose 40% Gel) 15-30 GRAMS 15 GRAMS... UD PRN PO 06/01/16 11:00 07/01/16 10:59 Glucose (Glucose Chew Tab) 4-8 Tablets 4 Tabl... UD PRN PO 06/01/16 11:00 07/01/16 10:59 Dextrose (Dextrose 50% 50ML Syringe) 25-50ML OF 50% DW IV FOR... UD PRN IV 06/01/16 11:00 07/01/16 10:59 Glucagon (Glucagon Inj) 1 mg UD PRN SQ 06/01/16 11:00 07/01/16 10:59 Albuterol/ Ipratropium (Duoneb) 3 ml Q4RWA INH 06/01/16 16:00 07/01/16 15:59 Albuterol Sulfate (Ventolin 0.083% 2.5MG/3ML Neb) 2.5 mg Q3R PRN INH 06/01/16 15:00 07/01/16 14:59 Salmeterol Xinafoate/ Fluticasone (Advair Diskus 250/50 Inh) 1 puff BID INH 06/01/16 14:00 07/01/16 13:59 06/01/16 14:25 1 PUFF Guaifenesin (Mucinex Contr Rel Tab) 600 mg Q12 PO 06/01/16 21:00 07/01/16 20:59 Levofloxacin (Levaquin Tab) 500 mg DAILY@11 PO 06/01/16 13:45 06/08/16 13:44 06/01/16 14:24 500 MG Physical Exam Vital Signs Past 12 Hours Date Time Temp Pulse Resp B/P Pulse Ox O2 Delivery O2 Flow Rate FiO2 06/01/16 11:22 88 18 94 Room Air 06/01/16 08:00 Nasal Cannula 2.0 06/01/16 07:08 36.8 72 20 142/63 95 Nasal Cannula 2.0 Constitutional: Alert, oriented, in no acute distress HEENT: Head is atraumatic and normocephalic. EOMs intact. Sclera anicteric. Face is symmetric. No perioral cyanosis. Mucous membranes moist. Neck: Supple, thick neck but no appreciable JVD, no carotid bruits Pulmonary: Normal respiratory effort, scattered wheezing Cardiac: Regular rate and rhythm, normal S1 and S2, no gallops, no rubs, no murmurs Extremities: No clubbing, cyanosis, or edema. Pulses intact Abdomen: Obese. Normal bowel sounds, soft, non-tender, no abdominal mass palpated Skin: Chronic venous stasis skin changes of bilateral lower extremities Neurological: Oriented to person, place, and time Data Laboratory Results: Last 24 Hours Test 05/31/16 16:50 05/31/16 17:19 05/31/16 21:20 06/01/16 07:49 White Blood Count 9.53 K/uL Red Blood Count 4.90 M/uL Hemoglobin 14.2 g/dL Hematocrit 43.1 % Mean Corpuscular Volume 88.0 fL Mean Corpuscular Hemoglobin 29.0 pg Mean Corpuscular Hemoglobin Concent 32.9 g/dl Platelet Count 227 K/uL Mean Platelet Volume 10.7 fL Neutrophils (%) (Auto) 79.9 % Lymphocytes (%) (Auto) 9.1 % Monocytes (%) (Auto) 9.1 % Eosinophils (%) (Auto) 0.3 % Basophils (%) (Auto) 0.2 % Neutrophils # (Auto) 7.61 K/uL Lymphocytes # (Auto) 0.87 K/uL Monocytes # (Auto) 0.87 K/uL Eosinophils # (Auto) 0.03 K/uL Basophils # (Auto) 0.02 K/uL RDW Standard Deviation 46.8 fL RDW Coefficient of Variation 14.7 % Immature Granulocyte % (Auto) 1.4 % Immature Granulocyte # (Auto) 0.13 K/uL Prothrombin Time 10.7 SECONDS Prothromb Time International Ratio 1.0 Activated Partial Thromboplast Time 26.1 SECONDS Partial Thromboplastin Ratio 1.0 D-Dimer 420 ug/L FEU Sodium Level 137 mmol/L Potassium Level 4.4 mmol/L Chloride Level 100 mmol/L Carbon Dioxide Level 27 mmol/L Anion Gap 10.0 mmol/L Blood Urea Nitrogen 18 mg/dl Creatinine 1.00 mg/dl Est Creatinine Clear Calc Drug Dose 78.8 ml/min Estimated GFR () 65.6 Estimated GFR (Non- 56.6 BUN/Creatinine Ratio 17.9 Random Glucose 181 mg/dl Calcium Level 9.2 mg/dl Total Bilirubin 0.4 mg/dl Aspartate Amino Transf (AST/SGOT) 13 U/L Alanine Aminotransferase (ALT/SGPT) 27 U/L Alkaline Phosphatase 97 U/L Total Creatine Kinase 24 U/L Creatine Kinase MB 1.0 ng/ml Creatine Kinase MB Ratio 4.2 Troponin I < 0.015 ng/ml Pro-B-Type Natriuretic Peptide 93 pg/ml Total Protein 7.3 gm/dl Albumin 3.4 gm/dl Globulin 3.9 gm/dl Albumin/Globulin Ratio 0.9 Influenza Type A Antigen Neg for Influ A Influenza Type B Antigen Neg for Influ B Bedside Glucose 250 mg/dl 276 mg/dl Test 06/01/16 08:55 06/01/16 11:38 06/01/16 13:42 White Blood Count 6.03 K/uL Red Blood Count 4.77 M/uL Hemoglobin 14.0 g/dL Hematocrit 42.0 % Mean Corpuscular Volume 88.1 fL Mean Corpuscular Hemoglobin 29.4 pg Mean Corpuscular Hemoglobin Concent 33.3 g/dl Platelet Count 245 K/uL Mean Platelet Volume 10.6 fL Neutrophils (%) (Auto) 82.8 % Lymphocytes (%) (Auto) 12.8 % Monocytes (%) (Auto) 2.7 % Eosinophils (%) (Auto) 0.0 % Basophils (%) (Auto) 0.2 % Neutrophils # (Auto) 5.00 K/uL Lymphocytes # (Auto) 0.77 K/uL Monocytes # (Auto) 0.16 K/uL Eosinophils # (Auto) 0.00 K/uL Basophils # (Auto) 0.01 K/uL RDW Standard Deviation 46.6 fL RDW Coefficient of Variation 14.4 % Immature Granulocyte % (Auto) 1.5 % Immature Granulocyte # (Auto) 0.09 K/uL Erythrocyte Sedimentation Rate 43 mm/hr Sodium Level 135 mmol/L Potassium Level 4.5 mmol/L Chloride Level 99 mmol/L Carbon Dioxide Level 25 mmol/L Anion Gap 11.0 mmol/L Blood Urea Nitrogen 19 mg/dl Creatinine 1.00 mg/dl Est Creatinine Clear Calc Drug Dose 79.1 ml/min Estimated GFR () 65.6 Estimated GFR (Non- 56.6 BUN/Creatinine Ratio 19.2 Random Glucose 321 mg/dl Calcium Level 8.8 mg/dl Magnesium Level 1.9 mg/dl C-Reactive Protein 3.18 mg/dl Beta-Hydroxybutyric Acid 1.76 mg/dL Bedside Glucose 276 mg/dl CXR: No significant change compared to the prior study. No acute process. Stable mild cardiomegaly. CT angiogram of chest: 1. No CT evidence of acute pulmonary embolism 2. No evidence of focal pulmonary consolidation 3. Bibasilar atelectasis EKG: Normal sinus rhythm at 81 bpm. Right bundle branch block and left anterior fascicular block. Dobutamine stress echo 12/05/13: Negative for ischemia at 84% MPHR. Resting echo with normal LV size and systolic function, EF 55-60%. No regional wall motion abnormalities. Mild LVH. No significant valvular abnormalities. Echo during this admission shows normal LV systolic function and regional wall motion. No significant valvular abnormalities were noted. Her RVSP is normal. Assessment & Plan ASSESSMENT/PLAN: 1. Shortness of breath: Patient presented to the ED yesterday with complaints of increased shortness of breath, which is worse with exertion. She has also noted wheezing and a productive cough. She appears euvolemic on examination with no evidence of acute CHF. She denies chest discomfort or other anginal symptoms. ECG has shown no ischemic change and cardiac enzymes have been negative. Echocardiogram this admission noted normal LV systolic function with no significant valvular abnormalities. Given this information, her symptoms do not appear to be cardiac in origin. Recommend continued treatment for her underlying lung disease. 2. Dual-chamber pacemaker: Device was interrogated in January 2016. Continue regular device checks as an outpatient. 3. Hypertension: Continue Lisinopril 40 mg daily. Thank you for allowing us to see this patient in consultation.
--- NOTE | 2016-06-01 16:40 | ECHOCARDIOGRAM REPORT ---
*NOTICE TO RECEIVING REPUBLICAN AGENCY This information is strictly Confidential and protected under [place] law. [place] law prohibits you from making any further disclosure of this information unless further disclosure is expressly permitted by the written consent of the person to whom it pertains or is authorized by law. A general authorization for the release of medical or other information is not sufficient for this purpose. Hospital accepts no responsibility if the information is made available to any other person, INCLUDING THE PATIENT. Interpretation Summary * Name: PAPA KELLY Study Date: 06/01/2016 02:53 PM BP: 146/79 mmHg * Patient Location: .4E\S\E408\S\1 HR: 72 * : 1945 (M/d/yyy) Gender: Female Height: 68 in * Age: 71 yrs Ethnicity: [place] Weight: 331 lb * Ordering Physician: Emile Cano * Referring Physician: Self, Referred * Performed By: Camilla lOea RCS * * Reason For Study: CHF * BSA: 2.5 m2 * -- Conclusions -- * 1. Normal LV size. Mild concentric LVH. * 2. Normal LV systolic function. LVEF 65-70%. Septal motion consistent with conduction abnormality. Grade I diastolic dysfunction. * 3. Borderline RV enlargement, normal RV function. * 4. No significant valvular abnormalities. * 5. Normal estimated CVP. * 6. Compared with prior study on 06/04/2013: No significant changes. Procedure Details * A complete two-dimensional transthoracic echocardiogram was performed (2D, M-mode, Doppler and color flow Doppler). * A contrast injection of Definity was performed to improve assessment of LV function. * Contrast was injected into an intravenous site in the left arm. * One vial of Definity ultrasound contrast was diluted in normal saline to a total volume of 10 ml. A total of '2' ml of solution was administered during imaging. * Lot # [id number] of Definity utilized for procedure. * Expiration date 1DEC17. * The attending nurse who injected the contrast agent was Stephany Quinn RN. * There were technical limitations due to patient'sbody habitus Left Ventricle * The left ventricle is grossly normal size. * There is mild concentric left ventricular hypertrophy. * Ejection Fraction = 65-70%. * Septal motion is consistent with conduction abnormality. Right Ventricle * Borderline right ventricular enlargement. * There is a pacemaker lead in the right ventricle. * The right ventricular systolic function is normal as assessed by tricuspid annular plane systolic excursion (TAPSE) (normal >1.5 cm). Atria * The left atrial size is normal. * The right atrium is moderately dilated. * No ASD detected; PFO is not assessed. Mitral Valve * There is mild to moderate mitral annular calcification. * There is no mitral valve stenosis. * Significant mitral regurgitation is absent. Tricuspid Valve * The tricuspid valve is not well visualized, but is grossly normal. * There is no tricuspid stenosis. * There is trace tricuspid regurgitation. Aortic Valve * The aortic valve opens well. * The aortic valve is trileaflet. * No hemodynamically significant valvular aortic stenosis. * There is no significant aortic regurgitation. Pulmonic Valve * The pulmonary valve is inadequately visualized, but the Doppler data is adequate for interpretation. * There is no pulmonic valvular stenosis. * There is no pulmonic valvular regurgitation. Great Vessels * The aortic root and proximal ascending aorta are normal sized. Pericardium/Pleural * There is no pericardial effusion. Great Vessels * Normal inferior vena cava size and collapsability with sniff indicates a normal right atrial pressure of 3 mmHg Left Ventricular Diastolic Function * Grade I diastolic dysfunction, (abnormal relaxation pattern). MMode 2D Measurements and Calculations IVSd 1.1 cm IVSs 1.5 cm LVIDd 5.6 cm LVIDs 3.6 cm LVPWd 1.1 cm LVPWs 1.6 cm IVS/LVPW 1.0 FS 36.8 % EDV(Teich) 154.8 ml ESV(Teich) 52.7 ml EF(Teich) 66.0 % EDV(cubed) 177.3 ml ESV(cubed) 44.8 ml EF(cubed) 74.7 % % IVS thick 38.0 % % LVPW thick 39.1 % LV mass(C)d 257.6 grams LV mass(C)dI 101.8 grams/m\S\2 LV mass(C)s 209.4 grams LV mass(C)sI 82.7 grams/m\S\2 CO(Teich) 7.4 l/min CI(Teich) 2.9 l/min/m\S\2 SV(Teich) 102.1 ml SI(Teich) 40.3 ml/m\S\2 CO(cubed) 9.5 l/min CI(cubed) 3.8 l/min/m\S\2 SV(cubed) 132.5 ml SI(cubed) 52.3 ml/m\S\2 Ao root diam 3.9 cm Ao root area 11.8 cm\S\2 ACS 2.0 cm LA dimension 4.1 cm LA/Ao 1.1 LVAd ap4 41.1 cm\S\2 LVLd ap4 8.9 cm EDV(MOD-sp4) 155.0 ml LVAs ap4 19.1 cm\S\2 LVLs ap4 7.5 cm ESV(MOD-sp4) 40.0 ml EF(MOD-sp4) 74.2 % LVAd ap2 38.6 cm\S\2 LVLd ap2 9.1 cm EDV(MOD-sp2) 134.0 ml LVAs ap2 17.2 cm\S\2 LVLs ap2 7.1 cm ESV(MOD-sp2) 34.0 ml EF(MOD-sp2) 74.6 % CO(MOD-sp4) 8.3 l/min CI(MOD-sp4) 3.3 l/min/m\S\2 SV(MOD-sp4) 115.0 ml SI(MOD-sp4) 45.4 ml/m\S\2 CO(MOD-sp2) 7.2 l/min CI(MOD-sp2) 2.8 l/min/m\S\2 SV(MOD-sp2) 100.0 ml SI(MOD-sp2) 39.5 ml/m\S\2 Doppler Measurements and Calculations MV E max addison 101.2 cm/sec MV A max addison 122.9 cm/sec MV E/A 0.82 MV P1/2t max addison 100.8 cm/sec MV P1/2t 77.7 msec MVA(P1/2t) 2.8 cm\S\2 MV dec slope 379.7 cm/sec\S\2 MV dec time 0.23 sec Ao V2 max 189.4 cm/sec Ao max PG 14.3 mmHg Ao max PG (full) 10.6 mmHg LV V1 max PG 3.7 mmHg LV V1 max 96.5 cm/sec PA V2 max 136.3 cm/sec PA max PG 7.4 mmHg
[2016-06-01 19:16] VITALS: PULSE 85; O2SAT 96
[2016-06-01] MEDS: GUAIFENESIN 600 MG TABCR PO SCH (20:35)
[2016-06-02] VITALS (11 sets, daily range): BP systolic 142–180; BP diastolic 53–91; PULSE 67–92; TEMP 36.5–37.1; O2SAT 91–96; Ht 170.2 cm; Wt 150.3 kg
[2016-06-02] MEDS: LORAZEPAM 0.5 MG TAB PO PRN ×2 (00:44→11:55)
[2016-06-02] MEDS: METHYLPREDNISOLONE IV 40 MG in SYRINGE 0 ML IV SCH ×4 (02:13→22:26)
[2016-06-02] MEDS: HEPARIN SOD 5000 UNIT/0.5 ML CARP SQ SCH ×3 (06:07→22:32)
[2016-06-02 06:57] LABS: COMPLETE YES; HEMATOCRIT 40.3 % (37-47); IG% 0.9 %; LYMPH % 10.8 %; LYMPH ABS # 0.87 K/uL (1.2-3.4); MEAN PLATELET VOLUME 10.6 fL (7.4-10.4); MONO % 4.1 %; NEUT % 84.2 %; PLATELET COUNT 211 K/uL (130-400); RED BLOOD COUNT 4.58 M/uL (4.2-5.4); WHITE BLOOD COUNT 8.03 K/uL (4.8-10.8)
[2016-06-02] MEDS: ALBUT/IPRATROP 3MG/0.5MG NEB 3 ML VIAL INH SCH ×4 (07:13→19:43)
[2016-06-02 07:30] LABS: BUN/CREATININE RATIO 21.6 (10-20); CREATININE 1.2 mg/dl (0.60-1.20); MAGNESIUM 2.1 mg/dl (1.8-2.4); POTASSIUM 4.6 mmol/L (3.5-5.1)
[2016-06-02 07:41] LABS: BETA-HYDROXYBUTYRATE 1.05 mg/dL (0.2-2.81)
--- NOTE | 2016-06-02 08:26 | DIAGNOSTIC IMAGING REPORT ---
(BARIUM SWALLOW) ESOPHAGUS CLINICAL HISTORY: recurrent cough with h/o periodic aspirationdysphagia COMPARISON STUDY: None FLUOROSCOPY TIME: 1.4 minutes. FINDINGS: Patient initiates swallowing function well. There is no evidence for aspiration or neuromuscular dysfunction. Subtle irritability of the distal esophagus. Minimal gastroesophageal reflux. IMPRESSION: 1. Normal swallowing function. 2. No evidence for aspiration. 3. Minimal esophageal irritability distally with minimal gastroesophageal reflux. Electronically signed by: Alexander King M.D. 06/02/2016 8:24 AM Dictated Date/Time: 06/02/2016 8:23 AM
[2016-06-02] MEDS: PANTOprazole SOD 40 MG TAB PO SCH (08:46)
[2016-06-02] MEDS: GUAIFENESIN 600 MG TABCR PO SCH ×2 (08:46→22:26)
[2016-06-02] MEDS: FLUTICASONE/SALMETEROL 250/50 (ADVAIR) 14 PUFF/1 INHALER INH SCH ×2 (08:46→22:25)
[2016-06-02] MEDS: VENLAFAXINE HCL XR 150 MG CAPXR PO SCH (08:46)
[2016-06-02] MEDS: LISINOPRIL 20 MG TAB PO SCH ×2 (08:46→22:27)
[2016-06-02] MEDS: INSULIN GLARGINE SOLOSTAR 100 UNITS/ML 3 ML PEN SQ SCH ×2 (08:49→22:32)
[2016-06-02] MEDS: INSULIN ASPART 100 UNITS/ML 3 ML PEN SC SCH ×4 (09:33→22:31)
[2016-06-02] MEDS: LEVOFLOXACIN 500 MG TAB PO SCH (11:55)
--- NOTE | 2016-06-02 15:13 | Pulmonology Progress Note ---
Pulmonary Progress Note Date of Service Jun 02, 2016. Attending Benedicto Lisa Subjective Patient notes continued dyspnea on exertion severe fatigue and intermittent cough with rhinitis, patient also complains of intermittent aspiration but none in the last 24 hours. Objective Patient with very flat affect had minimal coughing and is able to complete full sentences without signs of increased work of breathing but did clear her throat on many occasions as well as showed signs of rhinitis. Vital signs: Reviewed Respiratory: Expiratory wheezing noted bilaterally Cardiac: Distant heart sounds S1-S2 Extremities: 1+ pitting edema 1)Barium Swallow: WNL 2)Sinus Film: WNL 3)CTA thorax: a.P/A ratio >1.0 suggesting elevated pulmonary pressures 4)Cardiac Echo: a.LV: mild concentric LVH, EF=65-70%, grade 1 diastolic dysfunction b.Septal motion consistent with conduction c.RV: borderline enlargement, normal RV function i.TAPSE >1.5cm 5)Nocturnal Desaturation Trial (06/01/16) a.Longest continuous time with SaO2 <88% 18 minutes Assessment & Plan 71-year-old female admitted with shortness of breath underlying history of COPD/ AOCS, obesity. #1 ACOS/Asthma: Patient's pulmonary function tests show chronic obstructive pulmonary disease with signs of obesity. Suggest we continue current medical regimen at this time: Mucinex, DuoNeb's, Advair 250/50 and methylprednisolone. #2 bronchitis: Patient with possible pneumonia versus bronchitis continue Levaquin 500 mg IV #3 ANJALI/OHV: Patient's nocturnal desaturation study showed extended episodes of LEO twos less than 88%. She does qualify for BiPAP at this time. She refuses to initiate BiPAP until she becomes incontinent. I've spoken to Dr. Hook we are trying to initiate either self-catheterization and/or diapers. #4 rhinitis: Patient complains of rhinitis and has signs and symptoms consistent initiated Flonase Data Medications: Current Inpatient Medications Medications (Trade) Dose Ordered Sig/Aubree Route Start Time Stop Time Status Last Admin Dose Admin Ioversol (Optiray 320) 100 ml UD PRN IV 05/31/16 18:15 06/04/16 18:14 Heparin Sodium (Porcine) (Heparin Sq 5000 Unit/0.5ml) 5,000 unit Q8H SQ 05/31/16 22:00 06/30/16 21:59 06/02/16 13:53 5,000 UNIT Acetaminophen (Tylenol Tab) 650 mg Q4H PRN PO 05/31/16 19:45 06/30/16 19:44 Al Hydrox/Mg Hydrox/Simethicone (Maalox Max Susp) 15 ml Q4H PRN PO 05/31/16 19:45 06/30/16 19:44 Magnesium Hydroxide (Milk Of Magnesia Susp) 30 ml Q6H PRN PO 05/31/16 19:45 06/30/16 19:44 Polyethylene (Miralax Powder Packet) 17 gm DAILY PRN PO 05/31/16 19:45 06/30/16 19:44 Ondansetron HCl (Zofran Inj) 4 mg Q6H PRN IV 05/31/16 19:45 06/30/16 19:44 Insulin Glargine (Lantus Solostar Pen) 20 unit BID SQ 05/31/16 21:00 06/30/16 20:59 06/02/16 08:49 20 UNIT Lisinopril (Zestril Tab) 40 mg BID PO 05/31/16 21:00 06/30/16 20:59 06/02/16 08:46 40 MG Lorazepam (Ativan Tab) 0.5 mg BID PRN PO 05/31/16 19:45 06/30/16 19:44 06/02/16 11:55 0.5 MG Venlafaxine HCl (effeXOR EXTENDED REL CAP) 150 mg DAILY PO 06/01/16 08:00 07/01/16 08:59 06/02/16 08:46 150 MG Pantoprazole Sodium (Protonix Tab) 40 mg DAILY PO 06/01/16 08:00 07/01/16 08:59 06/02/16 08:46 40 MG Insulin Aspart SLIDING SCALE G... ACHS SC 05/31/16 21:00 06/30/16 20:59 06/02/16 12:55 14 UNITS Methylprednisolone Sodium Succinate/ Syringe (Solu-Medrol IV/ Syringe) 0.64 ml @ 1.5 mls/min Q6H IV 06/01/16 02:00 07/01/16 01:59 06/02/16 13:52 1.5 MLS/MIN Glucose (Glucose 40% Gel) 15-30 GRAMS 15 GRAMS... UD PRN PO 06/01/16 11:00 07/01/16 10:59 Glucose (Glucose Chew Tab) 4-8 Tablets 4 Tabl... UD PRN PO 06/01/16 11:00 07/01/16 10:59 Dextrose (Dextrose 50% 50ML Syringe) 25-50ML OF 50% DW IV FOR... UD PRN IV 06/01/16 11:00 07/01/16 10:59 Glucagon (Glucagon Inj) 1 mg UD PRN SQ 06/01/16 11:00 07/01/16 10:59 Albuterol/ Ipratropium (Duoneb) 3 ml Q4RWA INH 06/01/16 16:00 07/01/16 15:59 06/02/16 11:13 3 ML Albuterol Sulfate (Ventolin 0.083% 2.5MG/3ML Neb) 2.5 mg Q3R PRN INH 06/01/16 15:00 07/01/16 14:59 Salmeterol Xinafoate/ Fluticasone (Advair Diskus 250/50 Inh) 1 puff BID INH 06/01/16 14:00 07/01/16 13:59 06/02/16 08:46 1 PUFF Guaifenesin (Mucinex Contr Rel Tab) 600 mg Q12 PO 06/01/16 21:00 07/01/16 20:59 06/02/16 08:46 600 MG Levofloxacin (Levaquin Tab) 500 mg DAILY@11 PO 06/01/16 13:45 06/08/16 13:44 06/02/16 11:55 500 MG I & O: 24-Hour Column 06/02/16 08:00 Intake Total 695 ml Balance 695 ml Vital Signs: Date Time Temp Pulse Resp B/P Pulse Ox O2 Delivery O2 Flow Rate FiO2 06/02/16 11:14 87 18 94 Room Air 06/02/16 10:37 Room Air 06/02/16 10:34 37.1 78 16 153/53 93 Room Air 06/02/16 08:00 Room Air 06/02/16 07:47 36.9 67 18 142/60 91 Room Air 06/02/16 07:13 87 18 96 Room Air 06/02/16 00:47 37.1 75 18 153/66 93 Room Air 06/02/16 00:00 Room Air 06/01/16 19:16 85 18 96 Room Air 06/01/16 16:00 Room Air 06/01/16 15:36 36.6 72 18 146/79 92 Room Air Laboratory Results: Last 24 Hours Test 06/01/16 16:52 06/01/16 19:57 06/02/16 05:50 06/02/16 07:50 Bedside Glucose 278 mg/dl 314 mg/dl 288 mg/dl White Blood Count 8.03 K/uL Red Blood Count 4.58 M/uL Hemoglobin 13.3 g/dL Hematocrit 40.3 % Mean Corpuscular Volume 88.0 fL Mean Corpuscular Hemoglobin 29.0 pg Mean Corpuscular Hemoglobin Concent 33.0 g/dl Platelet Count 211 K/uL Mean Platelet Volume 10.6 fL Neutrophils (%) (Auto) 84.2 % Lymphocytes (%) (Auto) 10.8 % Monocytes (%) (Auto) 4.1 % Eosinophils (%) (Auto) 0.0 % Basophils (%) (Auto) 0.0 % Neutrophils # (Auto) 6.76 K/uL Lymphocytes # (Auto) 0.87 K/uL Monocytes # (Auto) 0.33 K/uL Eosinophils # (Auto) 0.00 K/uL Basophils # (Auto) 0.00 K/uL RDW Standard Deviation 46.7 fL RDW Coefficient of Variation 14.6 % Immature Granulocyte % (Auto) 0.9 % Immature Granulocyte # (Auto) 0.07 K/uL Sodium Level 137 mmol/L Potassium Level 4.6 mmol/L Chloride Level 100 mmol/L Carbon Dioxide Level 28 mmol/L Anion Gap 9.0 mmol/L Blood Urea Nitrogen 26 mg/dl Creatinine 1.20 mg/dl Est Creatinine Clear Calc Drug Dose 65.9 ml/min Estimated GFR () 52.7 Estimated GFR (Non- 45.4 BUN/Creatinine Ratio 21.6 Random Glucose 301 mg/dl Calcium Level 9.0 mg/dl Magnesium Level 2.1 mg/dl Beta-Hydroxybutyric Acid 1.05 mg/dL Test 06/02/16 11:10 06/02/16 11:57 Bedside Glucose 397 mg/dl 364 mg/dl
--- NOTE | 2016-06-02 18:04 | Hospitalist Progress Note ---
Hospitalist Progress Note Date of Service Jun 02, 2016. Subjective Pt evaluation today including: conversation w/ patient, physical exam, chart review, lab review, review of studies, conversation w/ [employer] dynamics consultant (Pulm), review of inpatient medication list Voiding: incontinence Pt emotionally upset tonight talking about her son that lives with her and his struggle with drug addiction and MH issues. This is causing her significant anxiety. She is definitely willing to trial BiPAP tonight and at home as her overnight oximetry test was grossly abnormal, indicating ANJALI. Frustrated with her chronic urinary incontinence--> states she soaks through briefs into her recliner she sleeps in every night at home even after completely emptying her bladder before bed. SHe does admit to drinking a lot of iced tea and coffee. Constitutional: No fever Respiratory: + dyspnea on exertion, + shortness of breath, + wheezing Cardiovascular: No chest pain Abdomen: No pain Female : + incontinence All Other Systems: Reviewed and Negative Objective Vital Signs Date Time Temp Pulse Resp B/P Pulse Ox O2 Delivery O2 Flow Rate FiO2 06/02/16 15:36 85 18 95 Room Air 06/02/16 15:17 36.5 75 14 159/74 96 Room Air 06/02/16 11:14 87 18 94 Room Air 06/02/16 10:37 Room Air 06/02/16 10:34 37.1 78 16 153/53 93 Room Air 06/02/16 08:00 Room Air 06/02/16 07:47 36.9 67 18 142/60 91 Room Air 06/02/16 07:13 87 18 96 Room Air 06/02/16 00:47 37.1 75 18 153/66 93 Room Air 06/02/16 00:00 Room Air 06/01/16 19:16 85 18 96 Room Air Physical Exam General Appearance: no apparent distress (but tearful), + obese Eyes: normal inspection, sclerae normal ENT: hearing grossly normal Respiratory/Chest: no respiratory distress, no accessory muscle use, + wheezing (diffusely, no crackles or rhonchi) Cardiovascular: regular rate, rhythm, no gallop, no murmur, + pertinent finding (trace pitting edema LEs bilat) Abdomen: normal bowel sounds, non tender, soft Extremities: no calf tenderness Neurologic/Psychiatric: alert, oriented x 3, + depressed affect Skin: normal color, warm/dry, no rash Laboratory Results Last 24 Hours Test 06/01/16 19:57 06/02/16 05:50 06/02/16 07:50 06/02/16 11:10 Bedside Glucose 314 mg/dl 288 mg/dl 397 mg/dl White Blood Count 8.03 K/uL Red Blood Count 4.58 M/uL Hemoglobin 13.3 g/dL Hematocrit 40.3 % Mean Corpuscular Volume 88.0 fL Mean Corpuscular Hemoglobin 29.0 pg Mean Corpuscular Hemoglobin Concent 33.0 g/dl Platelet Count 211 K/uL Mean Platelet Volume 10.6 fL Neutrophils (%) (Auto) 84.2 % Lymphocytes (%) (Auto) 10.8 % Monocytes (%) (Auto) 4.1 % Eosinophils (%) (Auto) 0.0 % Basophils (%) (Auto) 0.0 % Neutrophils # (Auto) 6.76 K/uL Lymphocytes # (Auto) 0.87 K/uL Monocytes # (Auto) 0.33 K/uL Eosinophils # (Auto) 0.00 K/uL Basophils # (Auto) 0.00 K/uL RDW Standard Deviation 46.7 fL RDW Coefficient of Variation 14.6 % Immature Granulocyte % (Auto) 0.9 % Immature Granulocyte # (Auto) 0.07 K/uL Sodium Level 137 mmol/L Potassium Level 4.6 mmol/L Chloride Level 100 mmol/L Carbon Dioxide Level 28 mmol/L Anion Gap 9.0 mmol/L Blood Urea Nitrogen 26 mg/dl Creatinine 1.20 mg/dl Est Creatinine Clear Calc Drug Dose 65.9 ml/min Estimated GFR () 52.7 Estimated GFR (Non- 45.4 BUN/Creatinine Ratio 21.6 Random Glucose 301 mg/dl Calcium Level 9.0 mg/dl Magnesium Level 2.1 mg/dl Beta-Hydroxybutyric Acid 1.05 mg/dL Test 06/02/16 11:57 06/02/16 16:37 Bedside Glucose 364 mg/dl 309 mg/dl Assessment and Plan 71 y/o morbidly obese F w/Hx DMII, HTN, pacer implanted for trifascicular block and syncope, and COPD/asthma- presents for the 3rd time in a one month period for persistent dyspnea which is largely exertional. During her 2 previous admissions she was treated for bronchitis with steroids, nebulizers and antibiotics but appears to relapse as the treatments taper off. A CT chest was obtained which is significant for bibasilar atelectasis. 1) SOB, COPD exacerbation and Obesity hypoventilation SYndrome, ANJALI - with overnight oximetry with longest desaturation < 88% for 18 minutes. ECHO with: * 1. Normal LV size. Mild concentric LVH. * 2. Normal LV systolic function. LVEF 65-70%. Septal motion consistent with conduction abnormality. Grade I diastolic dysfunction. * 3. Borderline RV enlargement, normal RV function. * 4. No significant valvular abnormalities. * 5. Normal estimated CVP. * 6. Compared with prior study on 06/04/2013: No significant changes. -start BiPAP tonight -continue treatment for bronchitis with IV steroids and nebs, taper steroids to q8h today -consult Pulmonology appreciated -Consult to Cardiology appreciated and DALE all seems to be related to Pulm issue and not cardiac -continue Mucinex -Pulm added Flonase today 2) HTN - cont Lisinopril - PRN Lasix at home but not here due to severe urinary incontinence very distressing to her and not significantly fluid overloaded here 3) DMII-with hyperglycemia secondary to steroids- sliding scale and Glargine ordered -increase Lantus for hyperglycemia, adjusted correction factor and carb coverage 4) Pacer in situ for h/o trifascicular block and syncope - rate-dependent - pt in sinus rhythm at 80BPM on admission without pacer activity on EKG -no issues Proph-heparin SQ Dispo: Full code to home when ready, PT/OT consults, may need home RN and RT?, will need BiPAP set up at home [facility] to see if needs home O2
[2016-06-02] MEDS: FLUTICASONE PROPIONATE NA SPR 16 GM BTL NAE SCH (20:00)
[2016-06-03] VITALS (11 sets, daily range): BP systolic 121–178; BP diastolic 63–98; PULSE 71–98; TEMP 36.5–37; O2SAT 87–95
[2016-06-03] MEDS: LORAZEPAM 0.5 MG TAB PO PRN (00:43)
[2016-06-03] MEDS: HEPARIN SOD 5000 UNIT/0.5 ML CARP SQ SCH ×3 (05:28→21:26)
[2016-06-03] MEDS: METHYLPREDNISOLONE IV 40 MG in SYRINGE 0 ML IV SCH ×3 (06:09→21:19)
[2016-06-03] MEDS: ALBUT/IPRATROP 3MG/0.5MG NEB 3 ML VIAL INH SCH ×4 (07:39→19:34)
[2016-06-03] MEDS: GUAIFENESIN 600 MG TABCR PO SCH ×2 (08:38→21:18)
[2016-06-03] MEDS: LISINOPRIL 20 MG TAB PO SCH ×2 (08:38→21:18)
[2016-06-03] MEDS: FLUTICASONE/SALMETEROL 250/50 (ADVAIR) 14 PUFF/1 INHALER INH SCH ×2 (08:39→21:16)
[2016-06-03] MEDS: PANTOprazole SOD 40 MG TAB PO SCH (08:39)
[2016-06-03] MEDS: VENLAFAXINE HCL XR 150 MG CAPXR PO SCH (08:39)
[2016-06-03] MEDS: INSULIN ASPART 100 UNITS/ML 3 ML PEN SC SCH ×4 (08:49→21:25)
[2016-06-03] MEDS: INSULIN GLARGINE SOLOSTAR 100 UNITS/ML 3 ML PEN SQ SCH ×2 (08:50→21:26)
--- NOTE | 2016-06-03 09:19 | Hospitalist Progress Note ---
Hospitalist Progress Note Date of Service Jun 03, 2016. Subjective Pt evaluation today including: conversation w/ patient, physical exam, chart review, lab review, review of studies, review of inpatient medication list Voiding: incontinence Pt trialed BiPAP last night and did ok with it for 2 separate 2 hr periods. She was able to fall asleep. Still had her usual urinary incontinence all night long. POx 94% on RA at rest today. Still with DALE. Glucose readings better. She also mentions she had a PPD placed on right forearm when at [facility] 2 weeks ago and it was never read as she left early, however she still has a faint purplish pj at the site. She doesn't think it was indurated but there was definitely a red pj afterwards. Constitutional: No chills, No fever Respiratory: + dyspnea on exertion Cardiovascular: No chest pain Abdomen: No constipation, No diarrhea, No pain Female : + incontinence Skin: No rash All Other Systems: Reviewed and Negative Objective Vital Signs Date Time Temp Pulse Resp B/P Pulse Ox O2 Delivery O2 Flow Rate FiO2 06/03/16 08:45 93 Room Air 06/03/16 08:35 Room Air Nasal Cannula 06/03/16 08:30 36.5 98 18 178/98 89 Room Air 06/03/16 07:39 72 18 94 Room Air 06/03/16 00:15 Room Air 06/02/16 23:53 74 96 06/02/16 23:16 37.1 74 18 180/91 95 Room Air 06/02/16 19:43 92 18 91 Room Air 06/02/16 16:22 95 Room Air 06/02/16 15:36 85 18 95 Room Air 06/02/16 15:17 36.5 75 14 159/74 96 Room Air 06/02/16 11:14 87 18 94 Room Air 06/02/16 10:37 Room Air 06/02/16 10:34 37.1 78 16 153/53 93 Room Air Physical Exam General Appearance: no apparent distress, + obese Eyes: normal inspection, sclerae normal ENT: hearing grossly normal, pharynx normal (no thrush) Neck: trachea midline Respiratory/Chest: no respiratory distress, no accessory muscle use, + wheezing (diffuse, no crackles or rhonchi) Cardiovascular: regular rate, rhythm, no edema, no murmur Abdomen: normal bowel sounds, non tender, soft (and obese) Extremities: normal inspection, no pedal edema Neurologic/Psychiatric: alert, normal mood/affect, oriented x 3 Skin: normal color, warm/dry, + pertinent finding (right forearm with 2 cm circular faint purplish macule, no induration) Laboratory Results Last 24 Hours Test 06/02/16 11:10 06/02/16 11:57 06/02/16 16:37 06/02/16 20:31 Bedside Glucose 397 mg/dl 364 mg/dl 309 mg/dl 349 mg/dl Test 06/03/16 00:51 06/03/16 07:29 06/03/16 09:08 Bedside Glucose 250 mg/dl 238 mg/dl Assessment and Plan 71 y/o morbidly obese F w/Hx DMII, HTN, pacer implanted for trifascicular block and syncope, and COPD/asthma- presents for the 3rd time in a one month period for persistent dyspnea which is largely exertional. During her 2 previous admissions she was treated for bronchitis with steroids, nebulizers and antibiotics but appears to relapse as the treatments taper off. A CT chest was obtained which is significant for bibasilar atelectasis. 1) SOB, COPD exacerbation and Obesity hypoventilation Syndrome, ANJALI - with overnight oximetry with longest desaturation < 88% for 18 minutes. Still wheezing today but oxygenation at rest improved. ECHO with: * 1. Normal LV size. Mild concentric LVH. * 2. Normal LV systolic function. LVEF 65-70%. Septal motion consistent with conduction abnormality. Grade I diastolic dysfunction. * 3. Borderline RV enlargement, normal RV function. * 4. No significant valvular abnormalities. * 5. Normal estimated CVP. * 6. Compared with prior study on 06/04/2013: No significant changes. -continue BiPAP qhs and may need repeat overnight oximetry to continue to qualify for BiPAP at home upon discharge--> CM to look into this -continue treatment for bronchitis with IV steroids q8h and nebs, taper steroids as able to back down to original taper as was on originally for suspected GCA which was ruled out -consult Pulmonology appreciated -Consult to Cardiology appreciated and DALE all seems to be related to Pulm issue and not cardiac -continue Mucinex -Pulm added Flonase -check 2 step -check Quantiferon Gold for possible +PPD although seems not likely based on description of PPD site 2) HTN - cont Lisinopril - PRN Lasix at home but not here due to severe urinary incontinence very distressing to her and not significantly fluid overloaded here 3) DMII-with hyperglycemia secondary to steroids- hyperglycemia from steroids is improved today with increase in insulin and decrease in steroids -continue Lantus for hyperglycemia, adjusted correction factor and carb coverage SSI -accuchecks 4) Pacer in situ for h/o trifascicular block and syncope - rate-dependent - pt in sinus rhythm at 80BPM on admission without pacer activity on EKG -no issues Proph-heparin SQ Dispo: Full code to home when ready, PT/OT consults, may need home RN and RT?, will need BiPAP set up at home [facility] to see if needs home O2
[2016-06-03] MEDS: LEVOFLOXACIN 500 MG TAB PO SCH (10:53)
[2016-06-03] MEDS: FLUTICASONE PROPIONATE NA SPR 16 GM BTL NAE SCH ×2 (10:54→21:17)
--- NOTE | 2016-06-03 12:31 | PULMONARY PROGRESS NOTE ---
DATE: 06/03/2016 PROBLEM LIST: Includes: 1. ACOS/asthma. 2. Bronchitis. 3. Obstructive sleep apnea/obesity hypoventilation syndrome. 4. Rhinitis. HISTORY OF PRESENT ILLNESS: The patient reports that she still is tight and wheezy today. She still has coughing. States that she did get a little bit of mucus up with the cough to do a sputum culture; however, she has not really been able to get a whole lot up. When I saw the patient today, she was in the process of doing a nebulizer treatment. She still is run down and tired. She still is tight in her chest. She is not having any chest pain or pressure, is not having any chest heaviness or tightness. She is not having any fever or chills that she is aware of. No GI symptoms. No nausea or vomiting, no indigestion or heartburn. She denies any difficulty with her bowel. She does have difficulty with her bladder and is receiving Botox injections for this. She is not having any increased swelling in her extremities. She reports that in preparation for coming home, she does have a hospital bed that was her 's in a spare bedroom. She states that it is loaded down with odds and ends right now, but her son is coming up to clear the bed off. Right now she is sleeping in a recliner that does not go back all the way. OBJECTIVE: GENERAL: The patient is a 71-year-old morbidly obese female in no acute distress, sitting at bedside, no acute respiratory distress. She is alert and oriented x3. Mood is good. Affect is good. VITAL SIGNS: Temp 36.9, pulse 71, respiration 18, blood pressure is 165/73, pulse ox looks like it has been ranging from about 87% to 94% on room air. HEENT: Normocephalic, atraumatic. Pupils equal, round and reactive to light and accommodation. Extraocular movements are intact. [place] moist gingival and buccal mucosa. NECK: Supple, short and thick. No mass, adenopathy or bruit. CHEST: The patient still has diffuse wheezing throughout. There are no rales or rhonchi noted. CARDIOVASCULAR: Regular rate and rhythm. No appreciated murmurs, gallops or rubs. ABDOMEN: Bowel sounds are present. Abdomen soft, nontender. No guarding, rigidity or organomegaly. EXTREMITIES: +1 edema bilaterally, no erythema, no cyanosis or clubbing. No new lab data. Sputum culture is pending. The patient did have a barium swallow, which did not reveal any evidence of aspiration. Otherwise, no new radiologic data. IMPRESSION: A 71-year-old female who has ongoing difficulty with ACOS/asthma with exacerbation. At this time, she is to continue getting nebulized treatments and aggressive pulmonary toilet. Will recommend incentive spirometer and flutter valve to see if this is helpful for her. Also continue her steroids at the current dose. In regards to her sleep apnea/obesity hypoventilation syndrome, I think the patient would benefit from a Trilogy machine; however her numbers unfortunately do not qualify. Her last pulmonary function test done in October of 2015 shows an FEV1 of 58%. Per Trilogy guidelines has to be less than 50%. She has not had an ABG done, we can get that ordered. At this time, will continue to work with her. She will need an outpatient sleep study, which the patient states is already set up by Dr. Obando, her PCP. She states that it is in June sometime. I think it would be good to have this done as soon as possible, as I think the patient will benefit from some type of noninvasive ventilation whether it is CPAP, BiPAP, or possibly Trilogy if we can get that authorized. But for now, continue medications as they are. Will continue to follow through hospitalization. Patient reviewed, evaluated and plan above plan agreed on. PATRICIA
[2016-06-03 14:09] LABS: ALPHA-1-ANTITRYPSIN TC 67710E 166 MG/DL (83-199); QUANTIF TB AG-NIL 1.65 IU/ML; QUANTIFERON NIL 0.01 IU/ML
[2016-06-04] VITALS (8 sets, daily range): BP systolic 130–160; BP diastolic 72–93; PULSE 55–89; TEMP 36.5–37.5; O2SAT 91–96
[2016-06-04] MEDS: LORAZEPAM 0.5 MG TAB PO PRN ×2 (01:55→21:15)
[2016-06-04 06:14] LABS: BASO % 0.1 %; BASO ABS # 0.01 K/uL (0-0.2); COMPLETE YES; EOS % 0.1 %; HEMATOCRIT 41.7 % (37-47); IG% 1.2 %; LYMPH % 13.5 %; LYMPH ABS # 1.33 K/uL (1.2-3.4); MEAN CELL VOLUME 87.1 fL (80-100); MEAN CORPUSCULAR HGB CONC 33.3 g/dl (32-36); MEAN PLATELET VOLUME 10.5 fL (7.4-10.4); MONO % 5.8 %; NEUT % 79.3 %; PLATELET COUNT 184 K/uL (130-400); RED BLOOD COUNT 4.79 M/uL (4.2-5.4); WHITE BLOOD COUNT 9.88 K/uL (4.8-10.8)
[2016-06-04] MEDS: METHYLPREDNISOLONE IV 40 MG in SYRINGE 0 ML IV SCH ×2 (06:23→13:50)
[2016-06-04] MEDS: HEPARIN SOD 5000 UNIT/0.5 ML CARP SQ SCH ×3 (06:27→21:12)
[2016-06-04 06:35] LABS: BUN/CREATININE RATIO 27.1 (10-20); CALCIUM 9.4 mg/dl (8.5-10.1); CREATININE 1.1 mg/dl (0.60-1.20); POTASSIUM 4.5 mmol/L (3.5-5.1)
[2016-06-04 06:35] LABS: ALLEN TEST POS (POS); ARTERIAL BLD GAS O2 SATURATION 93.3 % (90-95); ARTERIAL BLOOD GAS BASE EXCESS 4.7 mEq/L (-9-1.8); ARTERIAL BLOOD GAS HCO3 30 mmol/L (19-24); ARTERIAL BLOOD GAS PO2 69 mm/Hg (80-95); ARTERIAL BLOOD GAS pH 7.41 (7.35-7.45); O2 ADMINISTRATION RA
[2016-06-04] MEDS: ALBUT/IPRATROP 3MG/0.5MG NEB 3 ML VIAL INH SCH ×3 (07:20→20:05)
[2016-06-04] MEDS: FLUTICASONE/SALMETEROL 250/50 (ADVAIR) 14 PUFF/1 INHALER INH SCH ×2 (09:41→21:06)
[2016-06-04] MEDS: LISINOPRIL 20 MG TAB PO SCH ×2 (09:42→21:07)
[2016-06-04] MEDS: PANTOprazole SOD 40 MG TAB PO SCH (09:42)
[2016-06-04] MEDS: GUAIFENESIN 600 MG TABCR PO SCH ×2 (09:42→21:06)
[2016-06-04] MEDS: FLUTICASONE PROPIONATE NA SPR 16 GM BTL NAE SCH ×2 (09:42→21:06)
[2016-06-04] MEDS: VENLAFAXINE HCL XR 150 MG CAPXR PO SCH (09:42)
[2016-06-04] MEDS: INSULIN ASPART 100 UNITS/ML 3 ML PEN SC SCH ×4 (09:48→21:11)
[2016-06-04] MEDS: INSULIN GLARGINE SOLOSTAR 100 UNITS/ML 3 ML PEN SQ SCH ×2 (09:48→21:12)
--- NOTE | 2016-06-04 11:40 | Progress Note ---
Progress Note ID Consult Dictated # [id number] A/P: 1. +Quant, ? active vs latent TB -Continue isolation -Will need AFB sputum x 3 or broch -Will hold treatment for pending sputum cultures, ? significance of calcified granuloma -If cultures negative, can follow in office for discussion of latent tb treatment, but cultures will not finalize for 6 weeks -If culture + AFB will need rx for TB and follow up with [facility] post d/c -See consult for further details -Discussed with pulm -Will follow AFB sputum cultures and make further recs based on results -thank you
--- NOTE | 2016-06-04 12:15 | Clinical Documentation Query ---
ANJEL Wray : CLINICAL DOCUMENTATION QUERY Serological testing demonstrated presence of TB. ID consultation was undertaken and patient was placed on airborne precautions. ABG on room air demonstrated hypercarbia and hypoxemia. AFB sputum cultures pending. In your clinical opinion is this patient being managed for: ( x ) Possible Active but at least Latent pulmonary tuberculosis ( ) Other explanation of clinical findings (Please Explain) ( ) Unable to determine (Please Define) ( ) Need to Discuss ( ) Not Agree The medical record reflects the following clinical findings, treatment, and risk factors. Clinical Indicators: As above Treatment:ID consultation was undertaken and patient was placed on airborne precautions Risk Factors: Age, DM, frequent healthcare encounters. Please clarify and document your clinical opinion in the progress notes and discharge summary. Terms such as "probable", "suspected", "likely", "questionable", "possible", or "still to be ruled out" are acceptable. IF IN AGREEMENT, YOU MUST DOCUMENT ABOVE DIAGNOSTIC STATEMENT IN DAILY PROGRESS NOTES AND DISCHARGE SUMMARY. This document is not part of the patient's record. Thank You, Shahzad Simms, RN [phone]
--- NOTE | 2016-06-04 12:19 | INFECT. DISEASE CONSULTATION ---
DATE OF CONSULTATION: 06/04/2016 REQUESTING PHYSICIAN: Dr. Hook. HISTORY OF PRESENT ILLNESS: This is a 71-year-old female who was admitted for a third time in the past month for persistent dyspnea on exertion. She did have 2 previous admissions and she was treated with antibiotics, steroids and nebulizers for suspected bronchitis. She was discharged on her last admission to a care home facility; however, she was not happy with the care that was provided and signed out against medical advice from that facility within 24 hours. As part of her admission to the care home facility, she did have a PPD placed that she describes as having a large red welt afterwards; however, this was never officially read as she signed herself out against medical advice. She was once again admitted for persistent cough with occasional productive white to yellow sputum. She denies any hemoptysis. She does admit to some subjective fevers and chills at home but does not take her temperature. Since she has been admitted to the hospital, she has been afebrile and hemodynamically stable. She states she is unsure if she has any night sweats because she sleeps on plastic due to urinary incontinence. She has had an 80-pound weight loss in the past year but she states that this is intentional and she is actively trying to lose weight. She states that her was over 500 pounds and shortly after a gastric bypass surgery, so after that she made a decision to undergo weight reduction. She did have a QuantiFERON as part of her workup upon admission to the hospital and this was found to be positive on 06/01/2016. CAT scan of the chest which was done in the Emergency Room on 05/31/2016 does show no active PE, there is no pulmonary consolidation, she does have bibasilar atelectasis, and she was also found to have a calcified right upper lobe granulation. This was compared to her chest x-ray done on the same day. That x-ray done in the Emergency Room was compared to her previous hospital x-ray on 05/16/2016 and again showed clear lungs, dual-chamber pacemaker, and a calcified granuloma in the right upper lobe. She does not have any known direct history to tuberculosis. She states as a child, her grandfather did have emphysema and COPD, but she does not know if he was ever diagnosed with tuberculosis. She does state she lives with an adult son who was in the [place] until 1993, he did have multiple trips abroad and has had persistent cough and weight loss at home. She states he has not had any recent evaluation or workup for tuberculosis himself. Looking back at old chest x-rays, last chest x-ray dated 12/14/2013 does not show a calcified granuloma based on report, but x-rays in 2015 and 2016 do show a calcified granuloma. She denies having any previous testing for tuberculosis in the past. She did produce a sputum yesterday which was sent for routine culture. This is growing normal khloe at present but is not finalized. She is currently in airborne isolation at this time. She is on Levaquin and steroids and nebulizer treatment. She states her cough is much improved since admission to the hospital. She does have some sputum production after nebulizer therapy but states this has diminished since admission to the hospital. She denies any chest pain or any pain with deep inspiration. She denies any nausea, vomiting, diarrhea or abdominal pain. Again, she is having weight loss but this is intentional. She denies any loss of appetite. She has no urinary symptoms. All remaining review of systems are reviewed and are negative except for as noted above. PAST MEDICAL HISTORY: Significant for asthma, type 2 diabetes, hypertension, rectal abscess and vertigo. SURGICAL HISTORY: Significant for pacemaker, nose surgery, cholecystectomy, hysterectomy and knee replacement. FAMILY HISTORY: Noncontributory. SOCIAL HISTORY: Significant for history of tobacco use. She denies any drug or alcohol use. She is . 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 She has not worked in healthcare or correctional facilities in the past. She has no travel abroad. She was born in [place] and has lived here her whole life. Her TB risks are as above. ALLERGIES: SHE HAS ALLERGIES TO ERYTHROMYCIN, NITROFURANTOIN. CURRENT MEDICATIONS: Include Solu-Medrol, Flonase, Lantus, Mucinex, DuoNebs, Ventolin, Advair, Levaquin, Effexor, Protonix, subcu heparin, lisinopril, Tylenol, Maalox, milk of magnesia, MiraLax, Zofran, Ativan. PHYSICAL EXAMINATION: VITAL SIGNS: She is afebrile and has been since admission, pulse 80, respiratory rate 18, blood pressure is 130/72, oxygen saturation is 91-95% on room air. GENERAL: She is awake, alert and oriented x3. She is out of bed to chair on my examination. She appears comfortable. HEENT: Mucous membranes are moist. Extraocular muscles are intact. HEART: Regular. LUNGS: Have decreased breath sounds throughout, but I do not appreciate any rhonchi or wheezing. ABDOMEN: Soft, nontender, nondistended. There is no edema. SKIN: Without rash. LABORATORY STUDIES: CBC today reveals a white blood cell count of 9.8, hemoglobin 13.9, hematocrit 41.7. Sed rate on 06/01/2016 was 43. Chemistry panel today reveals a sodium of 137, potassium 4.5, chloride 100, bicarbonate 26, BUN 30, creatinine 1.1, glucose is 242. LFTs on admission were within normal limits. Again, a flu swab is negative. QuantiFERON is positive. Sputum culture is growing normal khloe. Esophageal x-ray shows normal swallowing function. A sinus x-ray done on 06/01/2016 shows no sinus disease. CT and chest x-ray are as reported previously. ASSESSMENT AND PLAN: Positive QuantiFERON Gold with calcified granuloma on chest imaging. At this time, active TB needs to be ruled out. This needs to be done with either 3 consecutive AFB sputums or a bronchoscopy. Certainly, if she has negative smear, she could be taken out of isolation and discharged to home if she is otherwise medically stable and results of her AFB cultures will be followed for growth. If she does have negative AFB cultures, then she could be offered treatment for latent tuberculosis; however, I would not offer any treatment until active TB is effectively ruled out. This was discussed with pulmonary medicine. Thank you for this consultation. PATRICIA
[2016-06-04] MEDS: LEVOFLOXACIN 500 MG TAB PO SCH (12:25)
--- NOTE | 2016-06-04 15:41 | Hospitalist Progress Note ---
Hospitalist Progress Note Date of Service Jun 04, 2016. Subjective Pt evaluation today including: conversation w/ patient, physical exam, chart review, lab review, review of studies, conversation w/ marine engineering consultant (ID and Pulm) , review of inpatient medication list PO Intake: anibal po Pt still with cough and DALE. Quant Gold came back + today. Pt does report son was in [place] but out in 1993 and he has had weight loss, soaking night sweats and cough for a while. Constitutional: No fever Respiratory: + cough, + dyspnea on exertion, + sputum Cardiovascular: No chest pain Abdomen: No pain All Other Systems: Reviewed and Negative Objective Vital Signs Date Time Temp Pulse Resp B/P Pulse Ox O2 Delivery O2 Flow Rate FiO2 06/04/16 14:20 37.1 82 18 160/76 91 Room Air 06/04/16 11:32 89 18 93 Room Air 06/04/16 09:00 Room Air 06/04/16 08:35 36.8 80 18 130/72 91 06/04/16 07:20 80 18 94 Room Air 06/04/16 00:34 36.5 83 18 150/77 91 Room Air 06/04/16 00:00 Room Air 06/03/16 19:34 80 18 95 Room Air 06/03/16 16:10 95 Room Air 06/03/16 16:06 37.0 81 18 121/63 95 Room Air 06/03/16 15:48 88 18 94 Room Air Physical Exam General Appearance: no apparent distress, + obese Eyes: normal inspection, sclerae normal ENT: hearing grossly normal, pharynx normal Neck: trachea midline Respiratory/Chest: no respiratory distress, no accessory muscle use, + wheezing (on left but not on right, improved from yesterday, no crackles) Cardiovascular: regular rate, rhythm, no edema, no gallop, no murmur Abdomen: normal bowel sounds, non tender, soft Extremities: non-tender, normal inspection, no pedal edema, no calf tenderness Neurologic/Psychiatric: alert, normal mood/affect, oriented x 3 Skin: normal color, warm/dry, no rash Laboratory Results Last 24 Hours Test 06/03/16 19:36 06/04/16 05:44 06/04/16 06:20 06/04/16 08:01 Bedside Glucose 271 mg/dl 242 mg/dl White Blood Count 9.88 K/uL Red Blood Count 4.79 M/uL Hemoglobin 13.9 g/dL Hematocrit 41.7 % Mean Corpuscular Volume 87.1 fL Mean Corpuscular Hemoglobin 29.0 pg Mean Corpuscular Hemoglobin Concent 33.3 g/dl Platelet Count 184 K/uL Mean Platelet Volume 10.5 fL Neutrophils (%) (Auto) 79.3 % Lymphocytes (%) (Auto) 13.5 % Monocytes (%) (Auto) 5.8 % Eosinophils (%) (Auto) 0.1 % Basophils (%) (Auto) 0.1 % Neutrophils # (Auto) 7.84 K/uL Lymphocytes # (Auto) 1.33 K/uL Monocytes # (Auto) 0.57 K/uL Eosinophils # (Auto) 0.01 K/uL Basophils # (Auto) 0.01 K/uL RDW Standard Deviation 46.6 fL RDW Coefficient of Variation 14.5 % Immature Granulocyte % (Auto) 1.2 % Immature Granulocyte # (Auto) 0.12 K/uL Sodium Level 137 mmol/L Potassium Level 4.5 mmol/L Chloride Level 100 mmol/L Carbon Dioxide Level 26 mmol/L Anion Gap 11.0 mmol/L Blood Urea Nitrogen 30 mg/dl Creatinine 1.10 mg/dl Est Creatinine Clear Calc Drug Dose 71.9 ml/min Estimated GFR () 58.5 Estimated GFR (Non- 50.5 BUN/Creatinine Ratio 27.1 Random Glucose 257 mg/dl Calcium Level 9.4 mg/dl Magnesium Level 2.0 mg/dl Arterial Blood pH 7.41 Arterial Blood Partial Pressure CO2 49 mmHg Arterial Blood Partial Pressure O2 69 mm/Hg Arterial Blood HCO3 30 mmol/L Arterial Blood Oxygen Saturation 93.3 % Arterial Blood Base Excess 4.7 mEq/L Arterial Blood Gas Delivery RA Stanislav Test POS Assessment and Plan 71 y/o morbidly obese F w/Hx DMII, HTN, pacer implanted for trifascicular block and syncope, and COPD/asthma- presents for the 3rd time in a one month period for persistent dyspnea which is largely exertional. During her 2 previous admissions she was treated for bronchitis with steroids, nebulizers and antibiotics but appears to relapse as the treatments taper off. A CT chest was obtained which is significant for bibasilar atelectasis. 1) SOB, COPD exacerbation and Obesity hypoventilation Syndrome, ANJALI - with overnight oximetry with longest desaturation < 88% for 18 minutes. Still wheezing today but oxygenation at rest improved. 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 Need to r/o active TB ECHO with: * 1. Normal LV size. Mild concentric LVH. * 2. Normal LV systolic function. LVEF 65-70%. Septal motion consistent with conduction abnormality. Grade I diastolic dysfunction. * 3. Borderline RV enlargement, normal RV function. * 4. No significant valvular abnormalities. * 5. Normal estimated CVP. * 6. Compared with prior study on 06/04/2013: No significant changes. -Need 3 negative AFB sputum smears to r/o active TB -if AFB smear neg x 3, then will need INH x 9 months for tx of LTBI -TB neg pressure room with precautions -continue BiPAP qhs and had repeat overnight oximetry to continue to qualify for nocturnal O2 upon discharge -continue treatment for bronchitis with IV steroids taper to q12h today, continue nebs, taper steroids down to none (Spoke with Rheum Dr. Man on phone today who says no more steroids needed at all from Rheum perspective) -consult Pulmonology appreciated -Consult to Cardiology appreciated and DALE all seems to be related to Pulm issue and not cardiac -continue Mucinex -Pulm added Flonase 2) HTN - cont Lisinopril - PRN Lasix at home but not here due to severe urinary incontinence very distressing to her and not significantly fluid overloaded here 3) DMII-with hyperglycemia secondary to steroids- hyperglycemia from steroids is improved today with increase in insulin and decrease in steroids -continue Lantus for hyperglycemia, adjusted correction factor and carb coverage SSI -accuchecks 4) Pacer in situ for h/o trifascicular block and syncope - rate-dependent - pt in sinus rhythm at 80BPM on admission without pacer activity on EKG -no issues Proph-heparin SQ Dispo: Full code to home after active TB ruled out, PT/OT consults
--- NOTE | 2016-06-04 17:15 | Pulmonology Progress Note ---
Pulmonary Progress Note Date of Service Jun 04, 2016. Attending Benedicto Lisa Subjective Patient continues to be/noticed dyspnea on exertion no acute changes over last 24 hours Objective Patient was able to ambulate about the room minimally tachypnea, accessory muscles but able to complete full sentences Vital signs: Reviewed Respiratory: Expiratory wheezing noted bilaterally Cardiac: Distant heart sounds S1-S2 Extremities: 1+ pitting edema 1) Barium Swallow: WNL 2) Sinus Film: WNL 3) CTA thorax: a.P/A ratio >1.0 suggesting elevated pulmonary pressures 4) Cardiac Echo: a.LV: mild concentric LVH, EF=65-70%, grade 1 diastolic dysfunction b.Septal motion consistent with conduction c.RV: borderline enlargement, normal RV function i.TAPSE >1.5cm 5) Nocturnal Desaturation Trial (06/01/16) a.Longest continuous time with SaO2 <88% 18 minutes 6) QuantiFERON Gold: Positive Assessment & Plan 71-year-old female admitted with shortness of breath underlying history of COPD/ AOCS, obesity. #1 ACOS/Asthma: Patient's pulmonary function tests show chronic obstructive pulmonary disease with signs of obesity. Continue: Mucinex, DuoNeb's, Advair 250 /50 -Switch methylprednisolone to prednisone 20 mg twice a day #2 bronchitis: Patient with possible pneumonia versus bronchitis continue Levaquin 500 mg IV on day 4 of 5. #3 ANJALI/OHV: BiPap 10/5 continue at this time #4 Rhinitis: on Flonase #5 QuantiFERON Gold: Positive. Patient most likely has latent tuberculosis but at this time we'll have to rule out for active tuberculosis placing in droplet precautions, obtaining 3 morning sputum's for AFB analysis and final culture results. If patient is unable to produce proper samples will initiate bronchoscopy at that time. Patient is reviewing possible contacts most likely it appears to be her son. I've suggested [facility]. Data Medications: Current Inpatient Medications Medications (Trade) Dose Ordered Sig/Aubree Route Start Time Stop Time Status Last Admin Dose Admin Ioversol (Optiray 320) 100 ml UD PRN IV 05/31/16 18:15 06/04/16 18:14 Heparin Sodium (Porcine) (Heparin Sq 5000 Unit/0.5ml) 5,000 unit Q8H SQ 05/31/16 22:00 06/30/16 21:59 06/04/16 13:52 5,000 UNIT Acetaminophen (Tylenol Tab) 650 mg Q4H PRN PO 05/31/16 19:45 06/30/16 19:44 Al Hydrox/Mg Hydrox/Simethicone (Maalox Max Susp) 15 ml Q4H PRN PO 05/31/16 19:45 06/30/16 19:44 Magnesium Hydroxide (Milk Of Magnesia Susp) 30 ml Q6H PRN PO 05/31/16 19:45 06/30/16 19:44 Polyethylene (Miralax Powder Packet) 17 gm DAILY PRN PO 05/31/16 19:45 06/30/16 19:44 Ondansetron HCl (Zofran Inj) 4 mg Q6H PRN IV 05/31/16 19:45 06/30/16 19:44 Lisinopril (Zestril Tab) 40 mg BID PO 05/31/16 21:00 06/30/16 20:59 06/04/16 09:42 40 MG Lorazepam (Ativan Tab) 0.5 mg BID PRN PO 05/31/16 19:45 06/30/16 19:44 06/04/16 01:55 0.5 MG Venlafaxine HCl (effeXOR EXTENDED REL CAP) 150 mg DAILY PO 06/01/16 08:00 07/01/16 08:59 06/04/16 09:42 150 MG Pantoprazole Sodium (Protonix Tab) 40 mg DAILY PO 06/01/16 08:00 07/01/16 08:59 06/04/16 09:42 40 MG Insulin Aspart (novoLOG ASPART) SLIDING SCALE G... ACHS SC 05/31/16 21:00 07/02/16 20:59 06/04/16 12:27 22 UNITS Glucose (Glucose 40% Gel) 15-30 GRAMS 15 GRAMS... UD PRN PO 06/01/16 11:00 07/01/16 10:59 Glucose (Glucose Chew Tab) 4-8 Tablets 4 Tabl... UD PRN PO 06/01/16 11:00 07/01/16 10:59 Dextrose (Dextrose 50% 50ML Syringe) 25-50ML OF 50% DW IV FOR... UD PRN IV 06/01/16 11:00 07/01/16 10:59 Glucagon (Glucagon Inj) 1 mg UD PRN SQ 06/01/16 11:00 07/01/16 10:59 Albuterol/ Ipratropium (Duoneb) 3 ml Q4RWA INH 06/01/16 16:00 07/01/16 15:59 06/04/16 07:20 3 ML Albuterol Sulfate (Ventolin 0.083% 2.5MG/3ML Neb) 2.5 mg Q3R PRN INH 06/01/16 15:00 07/01/16 14:59 Salmeterol Xinafoate/ Fluticasone (Advair Diskus 250/50 Inh) 1 puff BID INH 06/01/16 14:00 07/01/16 13:59 06/04/16 09:41 1 PUFF Guaifenesin (Mucinex Contr Rel Tab) 600 mg Q12 PO 06/01/16 21:00 07/01/16 20:59 06/04/16 09:42 600 MG Levofloxacin (Levaquin Tab) 500 mg DAILY@11 PO 06/01/16 13:45 06/08/16 13:44 06/04/16 12:25 500 MG Fluticasone Propionate 1 sprays 1 sprays BID JOSHUA 06/02/16 20:00 07/02/16 19:59 06/04/16 09:42 1 SPRAYS Methylprednisolone Sodium Succinate/ Syringe (Solu-Medrol IV/ Syringe) 0.64 ml @ 1.5 mls/min Q12 IV 06/04/16 21:00 07/04/16 20:59 Insulin Glargine (Lantus Solostar Pen) 24 unit BID SQ 06/04/16 20:00 07/04/16 19:59 I & O: 24-Hour Column 06/04/16 08:00 Intake Total 710 ml Balance 710 ml Vital Signs: Date Time Temp Pulse Resp B/P Pulse Ox O2 Delivery O2 Flow Rate FiO2 06/04/16 16:32 84 18 94 Room Air 06/04/16 16:00 Room Air 06/04/16 14:20 37.1 82 18 160/76 91 Room Air 06/04/16 11:32 89 18 93 Room Air 06/04/16 09:00 Room Air 06/04/16 08:35 36.8 80 18 130/72 91 06/04/16 07:20 80 18 94 Room Air 06/04/16 00:34 36.5 83 18 150/77 91 Room Air 06/04/16 00:00 Room Air 06/03/16 19:34 80 18 95 Room Air Laboratory Results: Last 24 Hours Test 06/03/16 19:36 06/04/16 05:44 06/04/16 06:20 06/04/16 08:01 Bedside Glucose 271 mg/dl 242 mg/dl White Blood Count 9.88 K/uL Red Blood Count 4.79 M/uL Hemoglobin 13.9 g/dL Hematocrit 41.7 % Mean Corpuscular Volume 87.1 fL Mean Corpuscular Hemoglobin 29.0 pg Mean Corpuscular Hemoglobin Concent 33.3 g/dl Platelet Count 184 K/uL Mean Platelet Volume 10.5 fL Neutrophils (%) (Auto) 79.3 % Lymphocytes (%) (Auto) 13.5 % Monocytes (%) (Auto) 5.8 % Eosinophils (%) (Auto) 0.1 % Basophils (%) (Auto) 0.1 % Neutrophils # (Auto) 7.84 K/uL Lymphocytes # (Auto) 1.33 K/uL Monocytes # (Auto) 0.57 K/uL Eosinophils # (Auto) 0.01 K/uL Basophils # (Auto) 0.01 K/uL RDW Standard Deviation 46.6 fL RDW Coefficient of Variation 14.5 % Immature Granulocyte % (Auto) 1.2 % Immature Granulocyte # (Auto) 0.12 K/uL Sodium Level 137 mmol/L Potassium Level 4.5 mmol/L Chloride Level 100 mmol/L Carbon Dioxide Level 26 mmol/L Anion Gap 11.0 mmol/L Blood Urea Nitrogen 30 mg/dl Creatinine 1.10 mg/dl Est Creatinine Clear Calc Drug Dose 71.9 ml/min Estimated GFR () 58.5 Estimated GFR (Non- 50.5 BUN/Creatinine Ratio 27.1 Random Glucose 257 mg/dl Calcium Level 9.4 mg/dl Magnesium Level 2.0 mg/dl Arterial Blood pH 7.41 Arterial Blood Partial Pressure CO2 49 mmHg Arterial Blood Partial Pressure O2 69 mm/Hg Arterial Blood HCO3 30 mmol/L Arterial Blood Oxygen Saturation 93.3 % Arterial Blood Base Excess 4.7 mEq/L Arterial Blood Gas Delivery RA Stanislav Test POS
[2016-06-04] MEDS ORDERED: METHYLPREDNISOLONE IV 40 MG in SYRINGE 0 ML IV SCH (21:00)
[2016-06-05] VITALS (9 sets, daily range): BP systolic 125–164; BP diastolic 54–91; PULSE 67–84; TEMP 36.8; O2SAT 89–96
[2016-06-05] MEDS: ALBUT/IPRATROP 3MG/0.5MG NEB 3 ML VIAL INH SCH ×4 (05:51→19:24)
[2016-06-05] MEDS: HEPARIN SOD 5000 UNIT/0.5 ML CARP SQ SCH ×3 (05:57→21:27)
[2016-06-05] MEDS ORDERED: SODIUM CHLORIDE 7% 4 ML NEB INH SCH (06:00)
[2016-06-05 06:04] LABS: BASO % 0.2 %; BASO ABS # 0.03 K/uL (0-0.2); COMPLETE YES; HEMATOCRIT 42.2 % (37-47); LYMPH % 17.1 %; LYMPH ABS # 2.08 K/uL (1.2-3.4); MEAN CELL VOLUME 87.2 fL (80-100); MEAN CORPUSCULAR HEMOGLOBIN 29.8 pg (25-34); MEAN CORPUSCULAR HGB CONC 34.1 g/dl (32-36); MEAN PLATELET VOLUME 10.7 fL (7.4-10.4); NEUT % 68.7 %; PLATELET COUNT 215 K/uL (130-400); RED BLOOD COUNT 4.84 M/uL (4.2-5.4); WHITE BLOOD COUNT 12.15 K/uL (4.8-10.8)
[2016-06-05 06:33] LABS: BUN/CREATININE RATIO 26.4 (10-20); CALCIUM 9.3 mg/dl (8.5-10.1); CREATININE 1.2 mg/dl (0.60-1.20); MAGNESIUM 2.2 mg/dl (1.8-2.4); POTASSIUM 4.1 mmol/L (3.5-5.1)
[2016-06-05] MEDS: FLUTICASONE/SALMETEROL 250/50 (ADVAIR) 14 PUFF/1 INHALER INH SCH ×2 (08:39→21:28)
[2016-06-05] MEDS: FLUTICASONE PROPIONATE NA SPR 16 GM BTL NAE SCH ×2 (08:39→21:29)
[2016-06-05] MEDS: PANTOprazole SOD 40 MG TAB PO SCH (08:40)
[2016-06-05] MEDS: LISINOPRIL 20 MG TAB PO SCH ×2 (08:40→21:28)
[2016-06-05] MEDS: VENLAFAXINE HCL XR 150 MG CAPXR PO SCH (08:40)
[2016-06-05] MEDS: GUAIFENESIN 600 MG TABCR PO SCH ×2 (08:40→21:27)
[2016-06-05] MEDS: INSULIN ASPART 100 UNITS/ML 3 ML PEN SC SCH ×4 (08:44→21:25)
[2016-06-05] MEDS: INSULIN GLARGINE SOLOSTAR 100 UNITS/ML 3 ML PEN SQ SCH ×2 (08:45→21:26)
[2016-06-05] MEDS: LEVOFLOXACIN 500 MG TAB PO SCH (12:32)
--- NOTE | 2016-06-05 13:01 | Hospitalist Progress Note ---
Hospitalist Progress Note Date of Service Jun 05, 2016. Subjective Pt evaluation today including: conversation w/ patient, physical exam, chart review, lab review, review of studies, conversation w/ sap portal consultant (Pulm), review of inpatient medication list PO Intake: anibal diet Voiding: no voiding problems Feels breathing is better, gave a sample for AFB after hypertonic neb this AM.had trouble with BiPAP mask last night, felt right nostril clogged Constitutional: No fever Respiratory: + cough, + sputum, + wheezing Cardiovascular: No chest pain Abdomen: No constipation, No diarrhea, No nausea, No pain, No vomiting Psychiatric: + anxiety (but is improved, does not feel she needs to increase her Effexor) All Other Systems: Reviewed and Negative Objective Vital Signs Date Time Temp Pulse Resp B/P Pulse Ox O2 Delivery O2 Flow Rate FiO2 06/05/16 10:35 71 18 92 Room Air 06/05/16 08:00 Room Air 06/05/16 06:58 36.8 73 18 150/54 89 Room Air 06/05/16 06:14 70 18 96 Room Air 06/05/16 01:07 36.8 84 20 164/91 96 Room Air 06/05/16 01:06 78 94 06/05/16 00:00 Room Air 06/04/16 20:05 78 18 96 Room Air 06/04/16 16:32 84 18 94 Room Air 06/04/16 16:00 Room Air 06/04/16 14:20 37.1 82 18 160/76 91 Room Air Physical Exam General Appearance: WD/WN, no apparent distress, + obese Eyes: normal inspection, sclerae normal ENT: pharynx normal Neck: trachea midline Respiratory/Chest: no respiratory distress, no accessory muscle use, + wheezing (exp in upper lung cary bilat, otherwise sounds clearer and moving air better ) Cardiovascular: regular rate, rhythm, no edema, no gallop, no murmur Abdomen: normal bowel sounds, non tender, soft (and morbidly obese) Extremities: non-tender, no calf tenderness Neurologic/Psychiatric: alert, normal mood/affect, oriented x 3 Skin: normal color, warm/dry, no rash Laboratory Results Last 24 Hours Test 06/04/16 20:07 06/05/16 05:03 06/05/16 07:47 06/05/16 11:18 Bedside Glucose 309 mg/dl 182 mg/dl 191 mg/dl White Blood Count 12.15 K/uL Red Blood Count 4.84 M/uL Hemoglobin 14.4 g/dL Hematocrit 42.2 % Mean Corpuscular Volume 87.2 fL Mean Corpuscular Hemoglobin 29.8 pg Mean Corpuscular Hemoglobin Concent 34.1 g/dl Platelet Count 215 K/uL Mean Platelet Volume 10.7 fL Neutrophils (%) (Auto) 68.7 % Lymphocytes (%) (Auto) 17.1 % Monocytes (%) (Auto) 10.0 % Eosinophils (%) (Auto) 0.0 % Basophils (%) (Auto) 0.2 % Neutrophils # (Auto) 8.35 K/uL Lymphocytes # (Auto) 2.08 K/uL Monocytes # (Auto) 1.21 K/uL Eosinophils # (Auto) 0.00 K/uL Basophils # (Auto) 0.03 K/uL RDW Standard Deviation 46.7 fL RDW Coefficient of Variation 14.6 % Immature Granulocyte % (Auto) 4.0 % Immature Granulocyte # (Auto) 0.48 K/uL Sodium Level 137 mmol/L Potassium Level 4.1 mmol/L Chloride Level 98 mmol/L Carbon Dioxide Level 31 mmol/L Anion Gap 8.0 mmol/L Blood Urea Nitrogen 32 mg/dl Creatinine 1.20 mg/dl Est Creatinine Clear Calc Drug Dose 65.9 ml/min Estimated GFR () 52.7 Estimated GFR (Non- 45.4 BUN/Creatinine Ratio 26.4 Random Glucose 158 mg/dl Calcium Level 9.3 mg/dl Magnesium Level 2.2 mg/dl Assessment and Plan 71 y/o morbidly obese F w/Hx DMII, HTN, pacer implanted for trifascicular block and syncope, and COPD/asthma- presents for the 3rd time in a one month period for persistent dyspnea which is largely exertional. During her 2 previous admissions she was treated for bronchitis with steroids, nebulizers and antibiotics but appears to relapse as the treatments taper off. A CT chest was obtained which is significant for bibasilar atelectasis and granuloma 1) SOB, COPD exacerbation and Obesity hypoventilation Syndrome, ANJALI - with overnight oximetry with longest desaturation < 88% for 18 minutes. Still wheezing today but oxygenation at rest improved. 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 Need to r/o active TB ECHO with: * 1. Normal LV size. Mild concentric LVH. * 2. Normal LV systolic function. LVEF 65-70%. Septal motion consistent with conduction abnormality. Grade I diastolic dysfunction. * 3. Borderline RV enlargement, normal RV function. * 4. No significant valvular abnormalities. * 5. Normal estimated CVP. * 6. Compared with prior study on 06/04/2013: No significant changes. -Need 3 negative AFB sputum smears to r/o active TB--> 1 pending so far -if AFB smear neg x 3, then will need INH x 9 months for tx of LTBI -TB neg pressure room with precautions -continue BiPAP qhs and had repeat overnight oximetry to continue to qualify for nocturnal O2 upon discharge -continue treatment for bronchitis with switch to po prednisone today,continue nebs, taper steroids down to none (Spoke with Rheum Dr. Man on phone who says no more steroids needed at all from Rheum perspective) -consult Pulmonology appreciated -Consult to Cardiology appreciated and DALE all seems to be related to Pulm issue and not cardiac -continue Mucinex -Pulm added Flonase 2) HTN - cont Lisinopril - PRN Lasix at home but not here due to severe urinary incontinence very distressing to her and not significantly fluid overloaded here 3) DMII-with hyperglycemia secondary to steroids- hyperglycemia from steroids is improved today with increase in insulin and decrease in steroids -continue Lantus for hyperglycemia, adjusted correction factor and carb coverage SSI -accuchecks 4) Pacer in situ for h/o trifascicular block and syncope - rate-dependent - pt in sinus rhythm at 80BPM on admission without pacer activity on EKG -no issues Proph-heparin SQ Dispo: Full code to home after active TB ruled out, PT/OT consults
[2016-06-05] MEDS: LORAZEPAM 0.5 MG TAB PO PRN (22:41)
[2016-06-06] VITALS (10 sets, daily range): BP systolic 127–152; BP diastolic 74–82; PULSE 68–101; TEMP 36.4–36.8; O2SAT 92–96
[2016-06-06 05:43] LABS: BASO % 0.3 %; BASO ABS # 0.04 K/uL (0-0.2); COMPLETE YES; EOS % 0.1 %; HEMATOCRIT 42.5 % (37-47); IG% 4.1 %; LYMPH % 20.7 %; MEAN CELL VOLUME 86.7 fL (80-100); MEAN CORPUSCULAR HEMOGLOBIN 29.2 pg (25-34); MEAN CORPUSCULAR HGB CONC 33.6 g/dl (32-36); MONO % 8.4 %; NEUT % 66.4 %; PLATELET COUNT 195 K/uL (130-400); WHITE BLOOD COUNT 12.09 K/uL (4.8-10.8)
[2016-06-06] MEDS: HEPARIN SOD 5000 UNIT/0.5 ML CARP SQ SCH ×3 (05:58→21:21)
[2016-06-06] MEDS ORDERED: NURSING VERBAL MED ORDER ONE (06:00)
[2016-06-06] MEDS: ALBUT/IPRATROP 3MG/0.5MG NEB 3 ML VIAL INH SCH ×4 (06:03→19:03)
[2016-06-06] MEDS: SODIUM CHLORIDE 7% 4 ML NEB INH SCH (06:03)
[2016-06-06 06:15] LABS: BUN/CREATININE RATIO 29.8 (10-20); CALCIUM 9.4 mg/dl (8.5-10.1); CREATININE 1.1 mg/dl (0.60-1.20); MAGNESIUM 2.1 mg/dl (1.8-2.4); POTASSIUM 4.5 mmol/L (3.5-5.1)
[2016-06-06] MEDS: LISINOPRIL 20 MG TAB PO SCH ×2 (08:44→20:56)
[2016-06-06] MEDS: GUAIFENESIN 600 MG TABCR PO SCH ×2 (08:44→20:56)
[2016-06-06] MEDS: PANTOprazole SOD 40 MG TAB PO SCH (08:44)
[2016-06-06] MEDS: VENLAFAXINE HCL XR 150 MG CAPXR PO SCH (08:44)
[2016-06-06] MEDS: FLUTICASONE/SALMETEROL 250/50 (ADVAIR) 14 PUFF/1 INHALER INH SCH ×2 (08:45→20:55)
[2016-06-06] MEDS: FLUTICASONE PROPIONATE NA SPR 16 GM BTL NAE SCH ×2 (08:45→20:56)
[2016-06-06] MEDS: INSULIN ASPART 100 UNITS/ML 3 ML PEN SC SCH ×4 (08:49→21:19)
[2016-06-06] MEDS: INSULIN GLARGINE SOLOSTAR 100 UNITS/ML 3 ML PEN SQ SCH ×2 (08:51→21:20)
[2016-06-06] MEDS: LEVOFLOXACIN 500 MG TAB PO SCH (11:51)
--- NOTE | 2016-06-06 16:36 | Hospitalist Progress Note ---
Hospitalist Progress Note Date of Service Jun 06, 2016. Subjective Pt evaluation today including: conversation w/ patient, physical exam, chart review, lab review, review of studies, review of inpatient medication list PO Intake: anibal po Voiding: no voiding problems Feeling much better overall, has given 2 AFB sputum samples so far, breathing much improved Constitutional: No fever Respiratory: + cough Cardiovascular: No chest pain Abdomen: No pain Skin: No rash All Other Systems: Reviewed and Negative Objective Vital Signs Date Time Temp Pulse Resp B/P Pulse Ox O2 Delivery O2 Flow Rate FiO2 06/06/16 15:27 80 18 95 Room Air 06/06/16 15:21 36.5 75 18 127/82 94 Room Air 06/06/16 11:09 68 18 94 Room Air 06/06/16 08:00 Room Air 06/06/16 07:33 36.5 73 18 130/74 93 Room Air 06/06/16 06:03 71 16 94 Room Air 06/06/16 01:02 36.4 82 20 136/81 92 Room Air 06/06/16 00:50 72 96 06/06/16 00:00 Room Air 06/05/16 19:24 67 18 94 Room Air Physical Exam General Appearance: WD/WN, no apparent distress, + obese Eyes: normal inspection, sclerae normal ENT: hearing grossly normal Neck: trachea midline Respiratory/Chest: no respiratory distress, no accessory muscle use, + wheezing (faint exp in mid lung cary, improved air movement throughout, no crackles or rhonchi) Cardiovascular: regular rate, rhythm, no edema, no gallop, no murmur Abdomen: normal bowel sounds, non tender, soft (and obese) Extremities: non-tender, no pedal edema, no calf tenderness Neurologic/Psychiatric: alert, normal mood/affect, oriented x 3 Skin: normal color, warm/dry, no rash (except chronic venous stasis changes legs bilat) Laboratory Results Last 24 Hours Test 06/05/16 16:41 06/05/16 20:14 06/06/16 05:08 06/06/16 07:59 Bedside Glucose 202 mg/dl 189 mg/dl 215 mg/dl White Blood Count 12.09 K/uL Red Blood Count 4.90 M/uL Hemoglobin 14.3 g/dL Hematocrit 42.5 % Mean Corpuscular Volume 86.7 fL Mean Corpuscular Hemoglobin 29.2 pg Mean Corpuscular Hemoglobin Concent 33.6 g/dl Platelet Count 195 K/uL Mean Platelet Volume 11.0 fL Neutrophils (%) (Auto) 66.4 % Lymphocytes (%) (Auto) 20.7 % Monocytes (%) (Auto) 8.4 % Eosinophils (%) (Auto) 0.1 % Basophils (%) (Auto) 0.3 % Neutrophils # (Auto) 8.04 K/uL Lymphocytes # (Auto) 2.50 K/uL Monocytes # (Auto) 1.01 K/uL Eosinophils # (Auto) 0.01 K/uL Basophils # (Auto) 0.04 K/uL RDW Standard Deviation 46.4 fL RDW Coefficient of Variation 14.6 % Immature Granulocyte % (Auto) 4.1 % Immature Granulocyte # (Auto) 0.49 K/uL Sodium Level 137 mmol/L Potassium Level 4.5 mmol/L Chloride Level 98 mmol/L Carbon Dioxide Level 30 mmol/L Anion Gap 9.0 mmol/L Blood Urea Nitrogen 33 mg/dl Creatinine 1.10 mg/dl Est Creatinine Clear Calc Drug Dose 71.9 ml/min Estimated GFR () 58.5 Estimated GFR (Non- 50.5 BUN/Creatinine Ratio 29.8 Random Glucose 207 mg/dl Calcium Level 9.4 mg/dl Magnesium Level 2.1 mg/dl Test 06/06/16 11:20 Bedside Glucose 275 mg/dl Assessment and Plan 71 y/o morbidly obese F w/Hx DMII, HTN, pacer implanted for trifascicular block and syncope, and COPD/asthma- presents for the 3rd time in a one month period for persistent dyspnea which is largely exertional. During her 2 previous admissions she was treated for bronchitis with steroids, nebulizers and antibiotics but appears to relapse as the treatments taper off. A CT chest was obtained which is significant for bibasilar atelectasis and granuloma 1) SOB, COPD exacerbation and Obesity hypoventilation Syndrome, ANJALI, Suspected active pulmonary TB with at least definite Latent TB - with overnight oximetry with longest desaturation < 88% for 18 minutes. Still wheezing today but oxygenation at rest improved. 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 Need to r/o active TB ECHO with: * 1. Normal LV size. Mild concentric LVH. * 2. Normal LV systolic function. LVEF 65-70%. Septal motion consistent with conduction abnormality. Grade I diastolic dysfunction. * 3. Borderline RV enlargement, normal RV function. * 4. No significant valvular abnormalities. * 5. Normal estimated CVP. * 6. Compared with prior study on 06/04/2013: No significant changes. -Need 3 negative AFB sputum smears to r/o active TB--> 1 pnegative and 2nd is pending so far -if AFB smear neg x 3, then will need INH x 9 months for tx of LTBI -TB neg pressure room with precautions -continue BiPAP qhs and will need repeat overnight oximetry to continue to qualify for nocturnal O2 upon discharge (Off BiPAP)-needs this within 48 hrs of discharge -continue treatment for bronchitis and switched to po prednisone today and taper down rapidly,continue nebs, taper steroids down to none (Spoke with Rheum Dr. Man on phone who says no more steroids needed at all from Rheum perspective ) -consult Pulmonology appreciated -Consult to Cardiology appreciated and DALE all seems to be related to Pulm issue and not cardiac -continue Mucinex -Pulm added Flonase -will need formal Sleep Study as outpt for BiPAP at home -Plan for dc to home once 3 AFB smears negative -will need ID f/u as outpt for INH treatment 2) HTN - cont Lisinopril - PRN Lasix at home but not here due to severe urinary incontinence very distressing to her and not significantly fluid overloaded here 3) DMII-with hyperglycemia secondary to steroids- hyperglycemia from steroids is improved today with increase in insulin and decrease in steroids -continue Lantus for hyperglycemia, adjusted correction factor and carb coverage SSI -accuchecks 4) Pacer in situ for h/o trifascicular block and syncope - rate-dependent - pt in sinus rhythm at 80BPM on admission without pacer activity on EKG -no issues Proph-heparin SQ Dispo: Full code to home after active TB ruled out, PT/OT consults
[2016-06-06] MEDS: NYSTATIN POWDER 15GM BTL EXT SCH (20:54)
[2016-06-07] VITALS (8 sets, daily range): BP systolic 131–147; BP diastolic 61–62; PULSE 69–78; TEMP 36.5–37.1; O2SAT 92–96
[2016-06-07] MEDS: LORAZEPAM 0.5 MG TAB PO PRN (01:06)
[2016-06-07 05:33] LABS: HEMATOCRIT 43.1 % (37-47); MEAN CELL VOLUME 86.4 fL (80-100); MEAN CORPUSCULAR HEMOGLOBIN 28.5 pg (25-34); MEAN CORPUSCULAR HGB CONC 32.9 g/dl (32-36); MEAN PLATELET VOLUME 10.5 fL (7.4-10.4); PLATELET COUNT 178 K/uL (130-400); RED BLOOD COUNT 4.99 M/uL (4.2-5.4)
[2016-06-07] MEDS: HEPARIN SOD 5000 UNIT/0.5 ML CARP SQ SCH ×3 (05:57→21:07)
[2016-06-07] MEDS: ALBUT/IPRATROP 3MG/0.5MG NEB 3 ML VIAL INH SCH ×4 (06:00→18:23)
[2016-06-07] MEDS: SODIUM CHLORIDE 7% 4 ML NEB INH SCH (06:00)
[2016-06-07 06:10] LABS: BUN/CREATININE RATIO 29.7 (10-20); CALCIUM 8.8 mg/dl (8.5-10.1); CREATININE 1.2 mg/dl (0.60-1.20); MAGNESIUM 1.9 mg/dl (1.8-2.4); POTASSIUM 4.4 mmol/L (3.5-5.1)
[2016-06-07 06:18] LABS: BASO % 0.4 %; BASO ABS # 0.05 K/uL (0-0.2); COMPLETE YES; EOS % 0.1 %; IG% 5.7 %; LYMPH % 20.9 %; LYMPH ABS # 2.95 K/uL (1.2-3.4); MONO % 5.3 %; NEUT % 67.6 %
--- NOTE | 2016-06-07 08:10 | PROGRESS NOTE ---
DATE: 06/07/2016 The patient is comfortable this morning. She denies cough or chest pain and states she was out of bed in a chair yesterday without difficulty. She does have significant amount of difficulty producing any sputum, although the initial sputum several days ago was negative for AFB. She has produced 2 more that are pending. She slept fairly well last night. She is being considered for an outpatient polysomnogram as well. She is tolerating her medications well. PHYSICAL EXAMINATION: VITAL SIGNS: Stable and she is afebrile. Oxygen saturation 95% on room air. Her weight is 150.3 kilograms, that may be an error, her new weight should be considered. HEENT: Unremarkable. No adenopathy is noted. No thrush is noted. There are no abnormalities in the upper airway. HEART: Regular rate and rhythm. No murmurs are heard. LUNGS: Reveal very mild wheezing in the anterior lung cary. Posteriorly, she had some mild wheezing right at the end of expiration. ABDOMEN: Soft, nontender. No organomegaly noted. She has no cyanosis, clubbing or edema. The QuantiFERON gold test is positive. Infectious disease evaluation is noted. I do not see any evidence of active TB. The initial sputum AFB on 06/05/2016 as a morning specimen was negative. Specimen from the and today are pending. Gram stain on the 2nd of the sputum revealed many inflammatory cells with epithelial cells and some mixed organisms. It has grown out normal khloe. CT of the chest is noted and shows no evidence of any pulmonary consolidation with just basilar atelectatic changes. IMPRESSION: 1. Asthma exacerbation. 2. Obstructive sleep apnea. 3. Positive QuantiFERON gold. This may be just latent tuberculosis. RECOMMENDATIONS: 1. At this point, I would continue with her present medications. Glucose control and I think the prednisone could be decreased to 20 mg daily. 2. Continue on the Advair and that should be decreased to 500/50, 1 puff b.i.d. 3. At this point, I think the Levaquin could be discontinued. There is no evidence of any active infection by the CT scan. She has been treated for 7 days. 4. Use albuterol or DuoNeb, but not both. I think she probably could be transitioned over to just plain ProAir 2 puffs 4 times a day p.r.n., continued on the Advair. If the patient is stable, she could be discharged to home. Follow up with Dr. Almeida and Dr. Obando as an outpatient.
[2016-06-07] MEDS: FLUTICASONE PROPIONATE NA SPR 16 GM BTL NAE SCH ×2 (08:34→21:03)
[2016-06-07] MEDS: FLUTICASONE/SALMETEROL 250/50 (ADVAIR) 14 PUFF/1 INHALER INH SCH ×2 (08:34→21:03)
[2016-06-07] MEDS: VENLAFAXINE HCL XR 150 MG CAPXR PO SCH (08:35)
[2016-06-07] MEDS: LISINOPRIL 20 MG TAB PO SCH ×2 (08:35→21:04)
[2016-06-07] MEDS: NYSTATIN POWDER 15GM BTL EXT SCH ×3 (08:35→21:03)
[2016-06-07] MEDS: GUAIFENESIN 600 MG TABCR PO SCH ×2 (08:35→21:05)
[2016-06-07] MEDS: PANTOprazole SOD 40 MG TAB PO SCH (08:35)
[2016-06-07] MEDS: INSULIN ASPART 100 UNITS/ML 3 ML PEN SC SCH ×4 (08:46→21:06)
[2016-06-07] MEDS: INSULIN GLARGINE SOLOSTAR 100 UNITS/ML 3 ML PEN SQ SCH ×2 (08:47→21:06)
--- NOTE | 2016-06-07 13:18 | Progress Note ---
Subjective Date of Service: Jun 07, 2016. Subjective this pt is feeling better and is looking to go home soon, still with some dyspnea and cough Problem List Medical Problems: (1) Acute bronchitis Status: Acute (2) Bronchitis Status: Acute (3) Bronchitis Status: Acute (4) Fatigue Status: Acute (5) Generalized weakness Status: Acute (6) Hypoxia Status: Acute (7) Leukocytosis Status: Acute (8) Sepsis Status: Acute (9) SOB (shortness of breath) Status: Acute Review of Systems Constitutional: No chills, No fever Respiratory: + cough, + dyspnea on exertion, + shortness of breath, No sputum Cardiac: No chest pain, No edema Abdomen: No diarrhea, No nausea, No pain, No vomiting Objective Vital Signs Date Time Temp Pulse Resp B/P Pulse Ox O2 Delivery O2 Flow Rate FiO2 06/07/16 11:05 76 18 96 Room Air 06/07/16 08:00 92 Room Air 06/07/16 07:43 36.5 69 18 147/61 92 Room Air 06/07/16 06:00 78 18 95 Room Air 06/07/16 02:37 78 96 06/07/16 00:54 Room Air BiPAP 06/06/16 23:31 36.8 101 20 152/76 95 Room Air 06/06/16 19:04 74 18 95 Room Air 06/06/16 16:13 95 Room Air 06/06/16 15:27 80 18 95 Room Air 06/06/16 15:21 36.5 75 18 127/82 94 Room Air Physical Exam General Appearance: WD/WN, + mild distress Neck: supple, no JVD Respiratory/Chest: chest non-tender, + decreased breath sounds, + rhonchi Cardiovascular: regular rate, rhythm, no murmur Abdomen: normal bowel sounds, non tender, soft Extremities: no pedal edema, no calf tenderness Neurologic/Psychiatric: alert, oriented x 3 Laboratory Results Last 24 Hours Test 06/06/16 16:34 06/06/16 20:11 06/07/16 05:09 06/07/16 07:47 Bedside Glucose 235 mg/dl 202 mg/dl 216 mg/dl White Blood Count 14.10 K/uL Red Blood Count 4.99 M/uL Hemoglobin 14.2 g/dL Hematocrit 43.1 % Mean Corpuscular Volume 86.4 fL Mean Corpuscular Hemoglobin 28.5 pg Mean Corpuscular Hemoglobin Concent 32.9 g/dl Platelet Count 178 K/uL Mean Platelet Volume 10.5 fL Neutrophils (%) (Auto) 67.6 % Lymphocytes (%) (Auto) 20.9 % Monocytes (%) (Auto) 5.3 % Eosinophils (%) (Auto) 0.1 % Basophils (%) (Auto) 0.4 % Neutrophils # (Auto) 9.53 K/uL Lymphocytes # (Auto) 2.95 K/uL Monocytes # (Auto) 0.75 K/uL Eosinophils # (Auto) 0.02 K/uL Basophils # (Auto) 0.05 K/uL RDW Standard Deviation 46.1 fL RDW Coefficient of Variation 14.7 % Immature Granulocyte % (Auto) 5.7 % Immature Granulocyte # (Auto) 0.80 K/uL Sodium Level 137 mmol/L Potassium Level 4.4 mmol/L Chloride Level 98 mmol/L Carbon Dioxide Level 26 mmol/L Anion Gap 13.0 mmol/L Blood Urea Nitrogen 36 mg/dl Creatinine 1.20 mg/dl Est Creatinine Clear Calc Drug Dose 65.9 ml/min Estimated GFR () 52.7 Estimated GFR (Non- 45.4 BUN/Creatinine Ratio 29.7 Random Glucose 253 mg/dl Calcium Level 8.8 mg/dl Magnesium Level 1.9 mg/dl Total Bilirubin 0.4 mg/dl Direct Bilirubin 0.1 mg/dl Aspartate Amino Transf (AST/SGOT) 11 U/L Alanine Aminotransferase (ALT/SGPT) 25 U/L Alkaline Phosphatase 75 U/L Total Protein 6.7 gm/dl Albumin 3.1 gm/dl Test 06/07/16 11:43 Bedside Glucose 187 mg/dl Assessment and Plan 71 y/o presents with recurrent acute on chronic respiratory failure, has additional medical problems of DMII, HTN, pacer ( for heart block and syncope) , CT chest on admission shows significant for bibasilar atelectasis and concern for granuloma Acute on chonic respiratory failure, COPD exacerbation, granuloma brings discussion of Latent TB +Quantiferon Gold- overnight oximetry with longest desaturation < 88% for 18 minutes. 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
[2016-06-07] MEDS: LEVOFLOXACIN 500 MG TAB PO SCH (13:36)
--- NOTE | 2016-06-07 14:28 | Progress Note ---
Subjective Date of Service: Jun 07, 2016. Subjective still with some resp distress, on abx, tolerating well. remains afebrile. 2 sputum AFB smears negative, awaiting third, collected this am. She remains with increased wbc but also on steroids. Problem List Medical Problems: (1) Acute bronchitis Status: Acute (2) Bronchitis Status: Acute (3) Bronchitis Status: Acute (4) Fatigue Status: Acute (5) Generalized weakness Status: Acute (6) Hypoxia Status: Acute (7) Leukocytosis Status: Acute (8) Sepsis Status: Acute (9) SOB (shortness of breath) Status: Acute Objective Vital Signs Date Time Temp Pulse Resp B/P Pulse Ox O2 Delivery O2 Flow Rate FiO2 06/07/16 11:05 76 18 96 Room Air 06/07/16 08:00 92 Room Air 06/07/16 07:43 36.5 69 18 147/61 92 Room Air 06/07/16 06:00 78 18 95 Room Air 06/07/16 02:37 78 96 06/07/16 00:54 Room Air BiPAP 06/06/16 23:31 36.8 101 20 152/76 95 Room Air 06/06/16 19:04 74 18 95 Room Air 06/06/16 16:13 95 Room Air 06/06/16 15:27 80 18 95 Room Air 06/06/16 15:21 36.5 75 18 127/82 94 Room Air Laboratory Results Item Value Date Time Gram Stain - Final Complete 06/03/16 0615 Sputum Expectorated Sputum Acid Fast Stain - Final Resulted 06/05/16 0610 Sputum Expectorated Sputum Acid Fast Stain - Final Resulted 06/06/16 0615 Sputum Expectorated Sputum Last 24 Hours Test 06/06/16 16:34 06/06/16 20:11 06/07/16 05:09 06/07/16 07:47 Bedside Glucose 235 mg/dl 202 mg/dl 216 mg/dl White Blood Count 14.10 K/uL Red Blood Count 4.99 M/uL Hemoglobin 14.2 g/dL Hematocrit 43.1 % Mean Corpuscular Volume 86.4 fL Mean Corpuscular Hemoglobin 28.5 pg Mean Corpuscular Hemoglobin Concent 32.9 g/dl Platelet Count 178 K/uL Mean Platelet Volume 10.5 fL Neutrophils (%) (Auto) 67.6 % Lymphocytes (%) (Auto) 20.9 % Monocytes (%) (Auto) 5.3 % Eosinophils (%) (Auto) 0.1 % Basophils (%) (Auto) 0.4 % Neutrophils # (Auto) 9.53 K/uL Lymphocytes # (Auto) 2.95 K/uL Monocytes # (Auto) 0.75 K/uL Eosinophils # (Auto) 0.02 K/uL Basophils # (Auto) 0.05 K/uL RDW Standard Deviation 46.1 fL RDW Coefficient of Variation 14.7 % Immature Granulocyte % (Auto) 5.7 % Immature Granulocyte # (Auto) 0.80 K/uL Sodium Level 137 mmol/L Potassium Level 4.4 mmol/L Chloride Level 98 mmol/L Carbon Dioxide Level 26 mmol/L Anion Gap 13.0 mmol/L Blood Urea Nitrogen 36 mg/dl Creatinine 1.20 mg/dl Est Creatinine Clear Calc Drug Dose 65.9 ml/min Estimated GFR () 52.7 Estimated GFR (Non- 45.4 BUN/Creatinine Ratio 29.7 Random Glucose 253 mg/dl Calcium Level 8.8 mg/dl Magnesium Level 1.9 mg/dl Total Bilirubin 0.4 mg/dl Direct Bilirubin 0.1 mg/dl Aspartate Amino Transf (AST/SGOT) 11 U/L Alanine Aminotransferase (ALT/SGPT) 25 U/L Alkaline Phosphatase 75 U/L Total Protein 6.7 gm/dl Albumin 3.1 gm/dl Test 06/07/16 11:43 Bedside Glucose 187 mg/dl Assessment and Plan (1) Bronchitis with asthma, acute Assessment & Plan: await third sputum afb, if negative can d/c to home on abx for bronchitis. If she remains with negative afb sputum cultures at six weeks and wishes to undergo therapy for ltbi at that time can follow with ID or [facility]. would not begin therapy for ltbi until sputum cultures are negative, third smear pending.
[2016-06-08] VITALS (9 sets, daily range): BP systolic 119–141; BP diastolic 67–77; PULSE 52–87; TEMP 36.8–37; O2SAT 92–95
[2016-06-08] MEDS: LORAZEPAM 0.5 MG TAB PO PRN (00:24)
[2016-06-08] MEDS: HEPARIN SOD 5000 UNIT/0.5 ML CARP SQ SCH ×3 (05:57→20:51)
[2016-06-08] MEDS: FLUTICASONE PROPIONATE NA SPR 16 GM BTL NAE SCH ×2 (07:49→20:47)
[2016-06-08] MEDS: FLUTICASONE/SALMETEROL 250/50 (ADVAIR) 14 PUFF/1 INHALER INH SCH ×2 (07:49→20:47)
[2016-06-08] MEDS: NYSTATIN POWDER 15GM BTL EXT SCH ×3 (07:49→20:47)
[2016-06-08] MEDS: VENLAFAXINE HCL XR 150 MG CAPXR PO SCH (07:50)
[2016-06-08] MEDS: LISINOPRIL 20 MG TAB PO SCH ×2 (07:50→20:48)
[2016-06-08] MEDS: PANTOprazole SOD 40 MG TAB PO SCH (07:50)
[2016-06-08] MEDS: GUAIFENESIN 600 MG TABCR PO SCH ×2 (07:50→20:47)
[2016-06-08] MEDS: ALBUT/IPRATROP 3MG/0.5MG NEB 3 ML VIAL INH SCH ×4 (08:00→19:17)
--- NOTE | 2016-06-08 08:52 | PROGRESS NOTE ---
DATE: 06/08/2016 HISTORY OF PRESENT ILLNESS: The patient is very comfortable this morning, eating breakfast with no complaints of chest pain or shortness of breath. She has not had any significant sputum production. She tolerated her medications well. She is still on the Advair 250/50 dose 1 inhalation b.i.d. So far, the AFB smears from the 4th and 5th are negative at least the stain is negative. AFB cultures are pending. PHYSICAL EXAMINATION: VITAL SIGNS: Stable and she is afebrile, blood pressure 136/67, oxygen saturation 95% on room air. According nurses' note, she did well last night with sleeping. HEENT: Unremarkable. No neck vein distention or HJR. No adenopathy noted. HEART: Regular rate and rhythm. No murmurs are heard. LUNGS: Clear. No wheezing is noted today. ABDOMEN: Soft, nontender. EXTREMITIES: She has no cyanosis, clubbing or edema. LABORATORY DATA: Her sugars have been in the 177 and 216 range. White count was 14,000 yesterday with a platelet count of 178,000. IMPRESSION: 1. Bronchial asthma with exacerbation. 2. Obstructive sleep apnea. 3. Probable latent tuberculosis. RECOMMENDATIONS: 1. At this point, I would increase the Advair to the 500/50, one inhalation b.i.d. with a mouth rinse. 2. Decrease the prednisone 20 mg daily, and taper that down over about 7-10 days. 3. Continue on albuterol as needed. I think that could be changed over to ProAir 2 puffs 4 times a day p.r.n. 4. Follow up with the infectious disease regarding probable latent tuberculosis. I will sign off on the patient now since pulmonary murillo she is doing well. I will be glad to reevaluate her again during the hospitalization. PATRICIA
[2016-06-08] MEDS: INSULIN ASPART 100 UNITS/ML 3 ML PEN SC SCH ×4 (09:20→20:50)
[2016-06-08] MEDS: INSULIN GLARGINE SOLOSTAR 100 UNITS/ML 3 ML PEN SQ SCH ×2 (09:20→20:50)
[2016-06-08] MEDS: LEVOFLOXACIN 500 MG TAB PO SCH (12:47)
--- NOTE | 2016-06-08 13:16 | Progress Note ---
Subjective Date of Service: Jun 08, 2016. Subjective pt feels weak and has concerns about going home, did not secure home bipap or nocturnal oxygen yet Problem List Medical Problems: (1) Acute bronchitis Status: Acute (2) Bronchitis Status: Acute (3) Bronchitis Status: Acute (4) Fatigue Status: Acute (5) Generalized weakness Status: Acute (6) Hypoxia Status: Acute (7) Leukocytosis Status: Acute (8) Sepsis Status: Acute (9) SOB (shortness of breath) Status: Acute Review of Systems Constitutional: + fatigue, + weakness, No chills, No fever Respiratory: + cough, + dyspnea on exertion, + shortness of breath, No sputum Cardiac: + orthopnea, No chest pain, No edema Abdomen: No diarrhea, No nausea, No pain, No vomiting Psychiatric: + depression symptoms, No anxiety Objective Vital Signs Date Time Temp Pulse Resp B/P Pulse Ox O2 Delivery O2 Flow Rate FiO2 06/08/16 11:53 74 18 94 Room Air 06/08/16 09:25 36.8 66 18 95 Room Air 06/08/16 08:00 95 Room Air 06/08/16 07:26 36.8 66 18 136/67 95 Room Air 06/08/16 07:00 66 18 95 Room Air 06/08/16 00:02 37.0 79 18 141/77 92 Room Air 06/08/16 00:00 Room Air 06/07/16 18:23 74 18 96 Room Air 06/07/16 16:00 Room Air 06/07/16 15:25 71 18 94 Room Air 06/07/16 15:00 37.1 78 18 131/62 93 Room Air Physical Exam General Appearance: + mild distress, + obese Eyes: PERRL, EOMI Neck: supple, no JVD Respiratory/Chest: + decreased breath sounds, + accessory muscle use Cardiovascular: regular rate, rhythm, + systolic murmur Abdomen: normal bowel sounds, non tender, soft Extremities: no pedal edema, no calf tenderness Laboratory Results Last 24 Hours Test 06/07/16 20:41 06/08/16 12:12 Bedside Glucose 177 mg/dl 210 mg/dl Assessment and Plan 71 y/o presents with recurrent acute on chronic respiratory failure, has additional medical problems of DMII, HTN, pacer ( for heart block and syncope) , CT chest on admission shows significant for bibasilar atelectasis and concern for granuloma Acute on chonic respiratory failure, COPD exacerbation, granuloma brings discussion of Latent TB +Quantiferon Gold- overnight oximetry with longest desaturation < 88% for 18 minutes. 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
--- NOTE | 2016-06-08 14:27 | Progress Note ---
Subjective Date of Service: Jun 08, 2016. Subjective pt now with 3 negative AFB smears, sputum culture with nml khloe. AFB cultures pending. on abx and weaning steroids. remains afebrile. No am labs. No overnight events. Problem List Medical Problems: (1) Acute bronchitis Status: Acute (2) Bronchitis Status: Acute (3) Bronchitis Status: Acute (4) Fatigue Status: Acute (5) Generalized weakness Status: Acute (6) Hypoxia Status: Acute (7) Leukocytosis Status: Acute (8) Sepsis Status: Acute (9) SOB (shortness of breath) Status: Acute Objective Vital Signs Date Time Temp Pulse Resp B/P Pulse Ox O2 Delivery O2 Flow Rate FiO2 06/08/16 11:53 74 18 94 Room Air 06/08/16 09:25 36.8 66 18 95 Room Air 06/08/16 08:00 95 Room Air 06/08/16 07:26 36.8 66 18 136/67 95 Room Air 06/08/16 07:00 66 18 95 Room Air 06/08/16 00:02 37.0 79 18 141/77 92 Room Air 06/08/16 00:00 Room Air 06/07/16 18:23 74 18 96 Room Air 06/07/16 16:00 Room Air 06/07/16 15:25 71 18 94 Room Air 06/07/16 15:00 37.1 78 18 131/62 93 Room Air Laboratory Results Last 24 Hours Test 06/07/16 20:41 06/08/16 12:12 Bedside Glucose 177 mg/dl 210 mg/dl Assessment and Plan (1) Bronchitis with asthma, acute Assessment & Plan: AFB smears negative x 3. Ok to d/c from ID standpoint with treatment for URI as planned when medically stable. If sputum cultures negative for TB and she would like to undergo treatment for LTBI she can follow up post d /c and treatment will be done on an outpt basis for LTBI, provided AFB cultures are negative.
[2016-06-09] MEDS: LORAZEPAM 0.5 MG TAB PO PRN (00:18)
[2016-06-09 00:38] VITALS: BP 119/68; PULSE 78; TEMP 36.5; O2SAT 92
[2016-06-09 05:25] LABS: ARTERIAL BLD GAS O2 SATURATION 93.7 % (90-95); ARTERIAL BLOOD GAS BASE EXCESS 3.7 mEq/L (-9-1.8); ARTERIAL BLOOD GAS HCO3 28 mmol/L (19-24); ARTERIAL BLOOD GAS PO2 71 mm/Hg (80-95); ARTERIAL BLOOD GAS pH 7.46 (7.35-7.45)
[2016-06-09 05:26] LABS: ALLEN TEST POS (POS); O2 ADMINISTRATION RA
[2016-06-09] MEDS: HEPARIN SOD 5000 UNIT/0.5 ML CARP SQ SCH ×2 (06:06→13:02)
[2016-06-09] MEDS: ALBUT/IPRATROP 3MG/0.5MG NEB 3 ML VIAL INH SCH ×2 (07:28→11:08)
[2016-06-09 07:32] VITALS: PULSE 78; O2SAT 93
[2016-06-09] MEDS: GUAIFENESIN 600 MG TABCR PO SCH (07:39)
[2016-06-09] MEDS: LISINOPRIL 20 MG TAB PO SCH (07:39)
[2016-06-09] MEDS: VENLAFAXINE HCL XR 150 MG CAPXR PO SCH (07:39)
[2016-06-09] MEDS: PANTOprazole SOD 40 MG TAB PO SCH (07:39)
[2016-06-09] MEDS: FLUTICASONE PROPIONATE NA SPR 16 GM BTL NAE SCH (07:40)
[2016-06-09] MEDS: FLUTICASONE/SALMETEROL 250/50 (ADVAIR) 14 PUFF/1 INHALER INH SCH (07:40)
[2016-06-09] MEDS: NYSTATIN POWDER 15GM BTL EXT SCH ×2 (07:40→12:54)
[2016-06-09 07:57] VITALS: BP 117/56; PULSE 66; TEMP 36.6; O2SAT 93
[2016-06-09 08:00] VITALS: O2SAT 96
[2016-06-09] MEDS: INSULIN ASPART 100 UNITS/ML 3 ML PEN SC SCH ×2 (08:42→13:02)
[2016-06-09] MEDS: INSULIN GLARGINE SOLOSTAR 100 UNITS/ML 3 ML PEN SQ SCH (08:43)
[2016-06-09] MEDS ORDERED: GFNSR600 PO (08:49)
[2016-06-09] MEDS ORDERED: PRD20 PO (08:49)
[2016-06-09 11:11] VITALS: PULSE 66; O2SAT 90
[2016-06-09] MEDS ORDERED: OXGN (13:56)
--- NOTE | 2016-06-09 14:00 | Discharge Instructions ---
Discharge Instructions Admission Reason for Admission: Dyspnea Discharge Discharge Diagnosis / Problem: COPD FLARE WITH SCARING SEEN, WILL NEED FOLLOW UP WITH DR SCHREIBER Discharge Goals Goal(s): Diagnostic testing, Therapeutic intervention Activity Recommendations Activity Limitations: resume your previous activity . Current Hospital Diet Patient's current hospital diet: Diabetes Type 2 Diet Discharge Diet Recommended Diet: Diabetes Type 2 Diet Pending Studies Studies pending at discharge: yes List of pending studies: AFB CULTURES Laboratory Results Hemoglobin A1c Test 04/27/16 02:04 Range/Units Estimated Average Glucose 203 mg/dl Hemoglobin A1c 8.7 H 4.5-5.6 % Medical Emergencies . Who to Call and When: Medical Emergencies: If at any time you feel your situation is an emergency, please call 911 immediately. . Non-Emergent Contact Non-Emergency issues call your: Feed Preparation Operator Call Non-Emergent contact if: temperature is above 101.5 . . "Provider Documentation" section prepared by Benedicto Bui. VTE Core Measure Inpt VTE Proph given/why not?: Unfractionated heparin SQ
--- NOTE | 2016-06-09 17:25 | Discharge Summary ---
Discharge Summary Admission Date: May 31, 2016 at 19:44 Discharge Date: Jun 09, 2016 Discharge Disposition: Home with services Principal Diagnosis: copd exacerbation, pulmonary granulomna positive gold quanterferon test Immunizations: Have You Had Influenza Vaccine: Yes Influenza Vaccine Date: Mar 03, 2013 History of Tetanus Vaccine?: No History of Pneumococcal: Yes Pneumococcal Date: Mar 03, 2013 History of Hepatitis B Vaccine: No Procedures: CT chest There is a calcified right upper lobe granuloma Consultations: Dr Logan in pulmonary med and Dr Almeida in ID did see and recommends outpt work up for latent TB Medication Reconciliation New Medications: Oxygen (Oxygen) Gas 2 LITERS NA HS for 365 Days Guaifenesin Ext Rel (Mucinex Ext Rel) 600 Mg Tabcr 600 MG PO Q12, #30 DOSE Changed Medications: Prednisone (Prednisone) 20 Mg Tab 20 MG PO DAILY for 30 Days, #30 TAB (Medication details modified) please take 20 mg a day until follow up with Dr berger Continued Medications: Albuterol Hfa (Ventolin Hfa) 200 Puffs/19543 Mcg Aers 2 PUFFS INH Q4H PRN for SOB/Wheezing, #1 INHALER Fluticasone Prop/Salmeterol (Advair Diskus 100/50 60 Dose) 1 Ea Aerp 1 PUFF INH BID, INHALER Furosemide (Lasix) 40 Mg Tab 40 MG PO DAILY PRN for WEIGHT GAIN/EDEMA, TAB Insulin Glargine (Lantus Solostar) 100 Unit/Ml Inj 20 UNIT SQ BID for 30 Days, #1 PEN Lisinopril (Zestril) 20 Mg Tab 40 MG PO BID, TAB Lorazepam (Ativan) 0.5 Mg Tab 0.5 MG PO BID PRN for Anxiety for 15 Days, #30 TAB Omeprazole (Prilosec) 20 Mg Cap 20 MG PO DAILY, CAP Sitagliptin Phosphate (Januvia) 100 Mg Tab 100 MG PO DAILY, TAB Tiotropium [place] (Spiriva Handihaler) 5 Puff/90 Mcg Aerp 1 PUFF INH QAM Venlafaxine Hcl (Venlafaxine Hcl Er) 150 Mg Tab 150 MG PO DAILY [Amaryl] () 1 TAB PO BID Discharge Exam Review of Systems: Constitutional: No chills, No fever, No sweats Respiratory: + dyspnea on exertion, + shortness of breath, No cough, No sputum Cardiovascular: No chest pain, No orthopnea Abdomen: No nausea, No pain, No vomiting Genitourinary - Female: + urinary incontinence, No dysuria Physical Exam: General Appearance: WD/WN, + mild distress, + obese Neck: supple, no JVD Respiratory/Chest: chest non-tender, lungs clear Cardiovascular: regular rate, rhythm, + systolic murmur Abdomen / GI: normal bowel sounds, non tender, soft Extremities: no pedal edema, normal range of motion Neurologic/Psychiatric: alert, oriented x 3 Hospital Course 71 y/o presents with recurrent acute on chronic respiratory failure, has additional medical problems of DMII, HTN, pacer ( for heart block and syncope) , CT chest on admission shows significant for bibasilar atelectasis and concern for granuloma Acute on chonic respiratory failure, COPD exacerbation, granuloma brings discussion of Latent TB +Quantiferon Gold- overnight oximetry pt did qualify for home O2, will hope to pursue outpt sleep study for ANJALI Cardiology causes ruled out by repeat echo without changes Steroid taper Granuloma, Dr Logan has seen 2, feels maybe worked up as outpt, ID did see and feels if we have 3 sputum pending she maybe able to go home with outpt also HTN - Lisinopril DMII-with hyperglycemia secondary to steroids- resume home meds 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 Discharge Instructions Please refer to the electronic Patient Visit Report (Discharge Instructions) for additional information.
== END 2016-06-09 15:45 | disposition home health service (06) | DRG 190 ==
LOC: ENRESERVTM → ENRESERVDT → C.EDB 14:00 → UNDOADMIN 19:44 → C.4E 19:44
PROVIDERS: ADMIT Internal Medicine; ATTEND Internal Medicine
DX: J44.1 Chronic obstructive pulmonary disease with (acute) exacerbation (principal); J96.20 Acute and chronic respiratory failure, unspecified whether with hypoxia or hypercapnia; E66.2 Morbid (severe) obesity with alveolar hypoventilation; Z68.43 Body mass index [BMI] 50.0-59.9, adult; J45.901 Unspecified asthma with (acute) exacerbation; R76.11 Nonspecific reaction to tuberculin skin test without active tuberculosis; I10 Essential (primary) hypertension; Z95.0 Presence of cardiac pacemaker; Z82.49 Family history of ischemic heart disease and other diseases of the circulatory system; Z79.4 Long term (current) use of insulin; Z96.659 Presence of unspecified artificial knee joint; Z87.891 Personal history of nicotine dependence; J84.10 Pulmonary fibrosis, unspecified; E11.65 Type 2 diabetes mellitus with hyperglycemia

== ENCOUNTER → 2016-06-21 | Outpatient (CLI) | payer BC, OTHER ==
[~2016-06-21] MED LIST changes: +ADVIN25/60 INH; +AMARYL PO; +CIPR-255 PO; +GFNSR600 PO; +GLIM2TAB2 PO; +GUAI1TAB55 PO; +INSDGIPEN SC; +METR-163 PO; -NVLGIPEN SC; +OXGN
--- NOTE | 2016-06-22 05:44 | PAP/PSG TECHNICIAN REPORT ---
[facility] Technical Sales Advisor Polysomnogram Report Study name: None Report date: 06/22/2016 Study date: 06/21/2016 Referring Physician: Ty Obando M.D. Name: LETICIA PAPA Interpreting Physician: Ty Obando M.D. Date of : 1945 Technical Sales Advisor: Heydi Tolbert RPSCAROLYN. Sex: Female Age: 71 StudyType: PSG Weight: 329 lbs Height: 71 years, Height 5' 8" Neck Circum: BMI: 50.02 Medications: Advair 100-50mcg/dose, Furosemide 40mg, Januvia 100mg, Lantus 100unit/ml, Lisinopril 20mg, Lorazepam 0.5mg, Novolog 100unit/ml, Omeprazole 20mg, Prednisone 20mg, Spiriva 18mcg Inhalation Cap, Venlafaxine HCl ER 150mg, Ventolin HFA 108mcg/act, 2LPM oxygen at night. Patient History Study started on room air with ETCO2 monitoring in room #6. 71 yr old female here tonight for a diagnostic psg. She has multiple medical problems. She was admitted to [facility] twice in the last few months with bronchitis and found out that she has TB. She snores and has problems with incontinence. She said that she thought she was here for a split study but her H&P and the order did not indicate that. Her neck circ=16.5inches. She did take a lorazepam before getting into bed. Her son is picking her up in the morning. Parameters Monitored NPSG: E1-M2, E2-M1, Fp1-M2, Fp2-M1, F3-M2, F4-M2, F4-M1, C3-M2, C4-M2, C4-M1, O1-M2, O2-M2, O2-M1, T3-M2, T4-M1, P3-M2, P4-M1, CHIN1, CHIN2, HR, EKG, Legs, PFLOW, SNOR, FLOW, CFLOW, Tidal Volume, THOR, ABDO, SpO2, PLTH, CPRESS, ETCO2 Wave, ETCO2, pH Sleep Architecture Sleep Stages Time at Lights Off 11:05:54 PM STAGES Time (min.) TST (%) Time at Lights On 5:23:24 AM Wake 115.0 -- Total Recording Time (TRT) 377.50 min. N1 20.0 8 Total Sleep Period (TSP) 338.5 min. N2 175.0 67 Total Sleep Time (TST) 262.5min. N3 67.5 26 Awake Time 115.0 min. REM 0.0 0 Wake after Sleep Onset 77.0 min. Sleep Efficiency (SE) 70 % Sleep Onset Latency (CHRIS) 38.0 min. Number of Stage 1 Shifts None Awakenings 32 Stage Changes 128 Number of REM periods N/A REM 0.0 0 REM Latency NONE min. NREM 262.5 100 Body Position Analysis Supine Right Left Side Prone Vertical Total Sleep Time (min.) 114.0 0.0 215.7 215.73 0.0 0.0 Total Sleep Time (%) 18% 0% 82% 82 0% N/A% Total Sleep Time REM (min.) 0.0 0.0 0.0 None 0.0 0.0 Total Sleep Time NREM (min.) 46.8 0.0 215.7 None 0.0 0.0 Intermittent Wake (min.) 67.3 0.0 47.7 None 0.0 0.0 Total Sleep Period (%) 22% None None None None None Arousals Myoclonus (PLM) * Events Count Index Events Count Index Spontaneous 42 10 Events Awake (PLMW) 52 27.1 Respiratory 20 6.2 Events Asleep w/ Arousal (PLMA) 11 2.5 PLM 11 3 Events Asleep w/o Arousal (PLMS) 71 16.2 Snoring 12 3 Total Asleep 82 18.7 Total 85 19 Total 134 21 Respiratory Analysis * CA OA MA CH H RERA Total Count 0 9 0 0 43 1 52 Index 0.0 2.1 0.0 0 9.8 0 12.1 Mean Duration 0.0 20.6 0.0 0.00 16.7 12.0 17.3 Longest Duration 0.0 35.8 0.0 0.00 0.0 12.0 35.8 Respiratory Event Summary Total Supine ~Supine Right Left Prone REM NREM Apneas Count 9 8 1 N/A 1 N/A N/A 9 Index 2.1 10 0 N/A 0.3 N/A N/A 2 Hypopneas (4% Desat) Count 43 2 41 N/A 41 N/A N/A 43 Index 9.8 2.6 11 N/A 11.4 N/A N/A 9.8 Apneas & All Hypopneas Count 52 10 42 N/A 42 N/A N/A 52 Index 11.9 13 12 N/A 12 N/A N/A 11.9 Respiratory Events (Chainman+All Hyp+RERA) Count 52 10 43 N/A 43 N/A N/A 52 Index 12.1 13 12 N/A 12.0 N/A N/A 12.1 Respiratory Related Arousal Count 20 10 21 N/A 21 N/A N/A 27 Index 6.2 8 6 N/A 6 N/A N/A 6 Snoring Analysis Supine Right Left Prone REM NREM Total Snore duration 17.0 min Snores count 44 N/A 975 N/A N/A 1,019 1,019 Snore mean duration 1.0 Sec Snores index 56 N/A 271 N/A N/A 232.9 232.9 TST with snoring (%) 6.5% SpO2 Analysis Total REM NREM Awake <50% 0.0 min. 0.0 min. 0.0 min. 0.0 min. 51 - 60% 0.0 min. 0.0 min. 0.0 min. 0.0 min. 61 - 70% 0.0 min. 0.0 min. 0.0 min. 0.0 min. 71 - 80% 0.0 min. 0.0 min. 0.0 min. 0.0 min. 81 - 90% 358.9 min. 0.0 min. 256.6 min. 102.3 min. 91 - 100% 14.1 min. 0.0 min. 3.1 min. 11.0 min. Average 87 0 87 88 Minimum SpO2 81 N/A 81 82 Desaturation Event Index 19.2 0.0 24.2 9.4 # Desat. Events below 89% 119 N/A 103 16 Time(%) with Saturation below 89% 77.3 0.0 60.3 17.0 Time(min.) with Saturation below 89% 288.3 0.0 224.9 63.4 Heart Rate Analysis End Tidal CO2 Analysis Min (bpm) Max (bpm) Average (bpm) TSP (mins) % of TSP Awake 64 127 75 Above 55 mmHg 1.7 0.6 NREM 34 115 71 50-55 mmHg 86.1 32.8 REM N/A N/A N/A 45-50 mmHg 105.7 40.3 Overall 34 115 71 40-45 mmHg 31.8 12.1 35-40 mmHg 9.8 3.7 30-35 mmHg 7.2 2.7 Average ETCO2 0.0 Supplemental O2 Values Minimum O2 level: None Value Start Time End Time Technical Sales Advisor Comments Mrs. Alvarez slept in the left and supine positions. No cardiac arrhythmia noted. Some leg movements noted. No bruxism noted. Snoring was noted and scored as a 2 on a scale of 1 through 5. (0=no snoring, 5=snoring loud enough to be heard through a closed door or down the temple way) She did not use the restroom during the night. She stated that she slept about the same as usual. She did not qualify for a split night study. Her AHI was 10 at 2 am. The final report will be interpreted and signed by a sleep physician. The completed physician report will then be placed in the patient medical record. Therapy (cm H2O) 0 TIB (min.) 377.5 TST (min.) 262.5 Sleep Onset (min.) 38.0 REM Onset From Sleep (min.) NONE Sleep Efficiency % 70 Wakefulness (%) 30 Wakefulness (min.) 115.0 NREM 1 (%) 8 NREM 1 (min.) 20.0 NREM 2 (%) 67 NREM 2 (min.) 175.0 NREM 3 (%) 26 NREM 3 (min.) 67.5 REM (%) 0 REM (min.) 0.0 # Arousals 85 Arousal Index 19 # Snore 1,019 Snore Index 232.9 AHI 11.9 AHI Supine 13 AHI Non-Supine 12 NREM AHI 11.9 REM AHI N/A RDI 12.1 # Obstructive Apnea 9 # Central Apnea 0 # Mixed Apnea 0 # Hypopneas 43 RERAs 1 Total Respiratory Events 55 Time Below SpO2 89% (min.) 224.9 Mean NREM SpO2 (%) 87 Mean REM SpO2 (%) N/A Mean Sleep SpO2 (%) 87 Min NREM SpO2 (%) 81 Min REM SpO2 (%) N/A Position Supine (min.) 114.0 Position Non-supine (min.) 215.7 LM Index Sleep 18.7 LM Index NREM 18.7 LM Index REM N/A Mean Heart Rate (bpm) 71 Min Heart Rate (bpm) 34
--- NOTE | 2016-06-24 10:50 | POLYSOMNOGRAPH REPORT ---
CLINICAL DATA: A 71-year-old female with BMI of 50 referred by myself for a sleep study. She has been admitted twice to the hospital and was found to have nocturnal hypoxemia- she was started on oxygen. She was on BiPAP during her hospitalization with improvement in her sleep quality. SLEEP ARCHITECTURE: Total sleep period was 338.5 minutes. Total sleep time was 262.5 minutes, all non-REM sleep. Sleep onset latency was delayed at 38 minutes. REM was not achieved. Sleep efficiency was 70%. Awake after sleep onset was 77 minutes. Sleep consisted of stage N1 8%, N2 67%, and N3 26%. AROUSAL DATA: 85 arousals recorded for an index of 19 per hour. 42 were spontaneous. PLM DATA: 82 limb movements during sleep were noted for an index of 18.7 per hour with arousal index of 2.5 per hour. RESPIRATORY DATA: Mild sleep apnea was documented. The AHI was 11.9. There were 9 obstructive apneic episodes. The longest duration of apnea was 35.8 seconds. There were 43 hypopneic episodes. The mean duration of hypopnea was 16.7 seconds. OXIMETRY DATA: Nocturnal hypoxemia was seen. Oxygen ad was 81%. Mean saturation was 87%. EKG: Heart rates ranged from 34-115 beats per minute. No arrhythmias were noted. WELLNESS MANAGER'S COMMENTS: The patient slept in the left and supine positions. Snoring was mild, rated 2 on a scale of 1-5. IMPRESSION: 1. Mild obstructive sleep apnea/hypopnea with an AHI of 11.9. 2. Significant nocturnal hypoxemia. RECOMMENDATIONS: The patient would benefit from use of CPAP/BIPAP and oxygen. [facility]van[facility]
== END | disposition home or self-care (01) ==
LOC: C.NEUR 21:00
PROVIDERS: ATTEND Allergy & Immunology Allergy
DX: E66.9 Obesity, unspecified (principal); R06.83 Snoring; G47.33 Obstructive sleep apnea (adult) (pediatric); R09.02 Hypoxemia

== ENCOUNTER → 2016-07-16 | Outpatient (CLI) | payer BC ==
[2016-07-16 15:47] LABS: BASO % 0.4 %; BASO ABS # 0.03 K/uL (0-0.2); COMPLETE YES; EOS % 0.9 %; HEMATOCRIT 38.9 % (37-47); IG% 1.3 %; LYMPH % 28.5 %; LYMPH ABS # 2.33 K/uL (1.2-3.4); MEAN CELL VOLUME 90.3 fL (80-100); MEAN CORPUSCULAR HEMOGLOBIN 30.2 pg (25-34); MEAN CORPUSCULAR HGB CONC 33.4 g/dl (32-36); MEAN PLATELET VOLUME 10.9 fL (7.4-10.4); MONO % 6.6 %; NEUT % 62.3 %; PLATELET COUNT 227 K/uL (130-400); RED BLOOD COUNT 4.31 M/uL (4.2-5.4); WHITE BLOOD COUNT 8.17 K/uL (4.8-10.8)
[2016-07-16 16:10] LABS: BLOOD UREA NITROGEN 11 mg/dl (7-18); BUN/CREATININE RATIO 12.6 (10-20); CARBON DIOXIDE 29 mmol/L (21-32); CHLORIDE 104 mmol/L (98-107); CREATININE 0.91 mg/dl (0.60-1.20); GLUCOSE 186 mg/dl (70-99); SODIUM 141 mmol/L (136-145)
== END | disposition home or self-care (01) ==
LOC: C.LAB1850 14:44
PROVIDERS: ATTEND Urology
DX: N39.46 Mixed incontinence (principal); Z01.812 Encounter for preprocedural laboratory examination

== ENCOUNTER → 2016-07-22 | Outpatient (CLI) | payer BC | END | disposition home or self-care (01) | LOC: C.CPL 16:52 | PROVIDERS: ATTEND Urology | DX: Z01.810 Encounter for preprocedural cardiovascular examination (principal); N39.46 Mixed incontinence ==

== ENCOUNTER 2016-11-18 22:01 | Emergency (ER) | payer BC ==
[~2016-11-18] VITALS: Ht 172.7 cm; Wt 145.2 kg
[~2016-11-18 22:01] MED LIST changes: -ADVIN25/60 INH; -CIPR-255 PO; -GLIM2TAB2 PO; -GUAI1TAB55 PO; -INSDGIPEN SC; -METR-163 PO
[2016-11-18 22:16] VITALS: TEMP 37.1; Ht 172.7 cm; Wt 145.2 kg
[2016-11-18] MEDS ORDERED: INSDGIPEN SC (23:23)
[2016-11-18] MEDS ORDERED: OXGN (23:23)
[2016-11-18] MEDS ORDERED: GLIM2TAB2 PO (23:23)
[2016-11-18] MEDS ORDERED: LORA-741 PO (23:23)
[2016-11-18] MEDS ORDERED: GUAI1TAB55 PO (23:23)
[2016-11-18] MEDS ORDERED: ADVIN25/60 INH (23:23)
[2016-11-18] MEDS ORDERED: OPTIRAY 320 IV PRN (23:45)
[2016-11-18 23:49] LABS: BASO % 0.1 %; BASO ABS # 0.01 K/uL (0-0.2); COMPLETE YES; EOS % 1.3 %; HEMATOCRIT 45.6 % (37-47); IG% 0.3 %; LYMPH % 19.9 %; LYMPH ABS # 2.29 K/uL (1.2-3.4); MEAN CELL VOLUME 85.6 fL (80-100); MEAN CORPUSCULAR HEMOGLOBIN 27.4 pg (25-34); MEAN PLATELET VOLUME 10.8 fL (7.4-10.4); NEUT % 69.4 %; PLATELET COUNT 238 K/uL (130-400); RED BLOOD COUNT 5.33 M/uL (4.2-5.4); WHITE BLOOD COUNT 11.48 K/uL (4.8-10.8)
[2016-11-18 23:57] LABS: BUN/CREATININE RATIO 12.6 (10-20); CALCIUM 8.9 mg/dl (8.5-10.1); CREATININE 0.99 mg/dl (0.60-1.20); POTASSIUM 3.4 mmol/L (3.5-5.1)
[2016-11-19] LABS: ALB/GLOB RATIO 0.7 (0.9-2)
[2016-11-19 00:31] VITALS: BP 168/72; PULSE 81; O2SAT 93
[2016-11-19] MEDS ORDERED: METR-163 PO (00:48)
[2016-11-19] MEDS ORDERED: METRONIDAZOLE 250 MG TAB PO STA (00:48)
[2016-11-19] MEDS ORDERED: CIPROFLOXACIN 500 MG TAB PO STA (00:48)
[2016-11-19] MEDS ORDERED: CIPR-255 PO (00:48)
--- NOTE | 2016-11-19 01:52 | EMERGENCY ROOM VISIT NOTE ---
History Report prepared by Iraj: Jamaica Levine Under the Supervision of: Dr. Benedicto Lara M.D. First contact with patient: 23:27 Chief Complaint: DIARRHEA Stated Complaint: SEVERE DIARRHEA X1 WEEK WITH CRAMPING, THIRST Nursing Triage Summary: Patient presents with stated c/o severe diarrhea, headache, abdominal cramping for the last four days after eating pork and sauerkraut in [place]. Denies recent antibiotic use. History of Present Illness The patient is a 71 year old female who presents to the Emergency Room with complaints of worsening severe diarrhea starting a week ago. She states that the first episode was after eating pork and sauerkraut at a restaurant. The patient reports that she called her PCP yesterday and they never called back. The patient states that she has an episode of diarrhea after every time she eats. She notes that she is nauseous. She states that right before an episode, she becomes crampy and hears noises in her belly. The patient denies vomiting, anyone being sick at home, hematochezia, recent travel outside the country, and recent use of antibiotics. Source of History: patient Onset: a week ago Position: other (global) Symptom Intensity: severe Quality: cramping Timing: worsening Associated Symptoms: + nausea, No vomiting, No hematochezia Note: The patient denies anyone being sick at home, recent travel outside the country , and recent use of antibiotics. Review of Systems See HPI for pertinent positives & negatives. A total of 10 systems reviewed and were otherwise negative. Past Medical & Surgical Medical Problems: (1) Asthma (2) Asthma exacerbation (3) Bronchitis with asthma, acute (4) Diabetes (5) Dyspnea (6) HTN (hypertension) (7) Pacemaker (8) Rectal abscess (9) Temporal giant cell arteritis (10) Vertigo Surgical Problems: (1) rhizotomy (2) S/P cholecystectomy (3) S/P hysterectomy (4) S/P knee replacement Family History Heart disease Hypertension Social History Smoking Status: Never Smoker Drug Use: none Marital Status: Housing Status: lives with family Occupation Status: retired Current/Historical Medications Scheduled Ciprofloxacin Hcl (Cipro), 500 MG PO BID Fluticasone Prop/Salmeterol (Advair Diskus 250/50 60 Dose), 1 PUFF INH BID Glimepiride (Glimepiride), 2 MG PO TID Home O2 Therapy (Oxygen), 2 LITERS NA HS Insulin Glargine (Lantus Solostar), 20 UNITS SC QAM Lisinopril (Zestril), 40 MG PO BID Metronidazole (Flagyl), 500 MG PO TID Omeprazole (Prilosec), 20 MG PO DAILY Sitagliptin Phosphate (Januvia), 100 MG PO DAILY Tiotropium [place] (Spiriva Handihaler), 1 PUFF INH QAM Venlafaxine Hcl (Venlafaxine Hcl Er), 150 MG PO DAILY Scheduled PRN Albuterol Hfa (Ventolin Hfa), 2 PUFFS INH Q4H PRN for SOB/Wheezing Furosemide (Lasix), 40 MG PO DAILY PRN for WEIGHT GAIN/EDEMA Guaifenesin Ext Rel (Mucinex Ext Rel), 600 MG PO Q12 PRN for CONGESTION Lorazepam (Ativan), 0.5 MG PO BID PRN for Anxiety/Agitation Allergies Coded Allergies: Erythromycin (Verified Allergy, Intermediate, CONFUSION, HEADACHE, 11/18/16 ) Nitrofurantoin (Verified Allergy, Intermediate, 15 different symptoms, ) Chocolate (Verified Allergy, Unknown, ., 11/18/16) Physical Exam Vital Signs Date Time Temp Pulse Resp B/P (MAP) Pulse Ox O2 Delivery O2 Flow Rate FiO2 11/19/16 00:31 81 18 168/72 93 Room Air 11/18/16 22:16 37.1 90 20 137/75 91 Room Air Physical Exam Constitutional: Vital signs reviewed. Eyes: Pupils are equal round reactive to light. Conjunctiva are noninjected. ENT: Pharynx is clear without erythema or exudate. Mucous membranes are dry. Neck supple without meningeal signs. Respiratory: Clear to auscultation bilaterally. Breath sounds are equal bilaterally. Cardiovascular: Regular rate and rhythm. No rubs or gallops. GI: Soft, nondistended. Bowel sounds are present. Suprapubic abdominal tenderness without guarding. Musculoskeletal: No peripheral edema. Integumentary: No cyanosis. Neurological: The patient is awake and alert. No focal deficits. Psychiatric: Normal affect. Medical Decision & Procedures ER Provider Diagnostic Interpretation: Radiology results as stated below per my review and the radiologist's interpretation: VT ABDOMEN & PELVIS: Comparison: 09/10/2014 Impression: Mild bowel wall thickening seen within the distal sigmoid colon with probable trace stranding. Findings liekly represent early diverticulitis/colitis. Additional findings: Visualized lower thorax demonstrates bibasilar atelectasis and or scarring as well as cardiac pacemaker. The gallbladder is surgically absent. Decreased attenuation of liver which may represent hepatic steatosis. Lobular contour suggesting cirrhosis. The spleen, pancreas, and adrenal glands are unremarkable. The kidneys, ureters, and urinary bladder are unremarkable. The appendix is not visualized. No free fluid. No free air. No acute osseous abnormality. Radiologist: Roberto Carlos Arriola MD Study ready at 00:31 and initial results transmitted at 00:34. Laboratory Results 11/18/16 23:12 Red Blood Count 5.33, Mean Corpuscular Volume 85.6, Mean Corpuscular Hemoglobin 27.4, Mean Corpuscular Hemoglobin Concent 32.0, Mean Platelet Volume 10.8, Neutrophils (%) (Auto) 69.4, Lymphocytes (%) (Auto) 19.9, Monocytes (%) (Auto) 9.0, Eosinophils (%) (Auto) 1.3, Basophils (%) (Auto) 0.1, Neutrophils # (Auto) 7.96, Lymphocytes # (Auto) 2.29, Monocytes # (Auto) 1.03, Eosinophils # (Auto) 0.15, Basophils # (Auto) 0.01 11/18/16 23:12 Test 11/18/16 23:12 White Blood Count 11.48 K/uL (4.8-10.8) Red Blood Count 5.33 M/uL (4.2-5.4) Hemoglobin 14.6 g/dL (12.0-16.0) Hematocrit 45.6 % (37-47) Mean Corpuscular Volume 85.6 fL (80-100) Mean Corpuscular Hemoglobin 27.4 pg (25-34) Mean Corpuscular Hemoglobin Concent 32.0 g/dl (32-36) Platelet Count 238 K/uL (130-400) Mean Platelet Volume 10.8 fL (7.4-10.4) Neutrophils (%) (Auto) 69.4 % Lymphocytes (%) (Auto) 19.9 % Monocytes (%) (Auto) 9.0 % Eosinophils (%) (Auto) 1.3 % Basophils (%) (Auto) 0.1 % Neutrophils # (Auto) 7.96 K/uL (1.4-6.5) Lymphocytes # (Auto) 2.29 K/uL (1.2-3.4) Monocytes # (Auto) 1.03 K/uL (0.11-0.59) Eosinophils # (Auto) 0.15 K/uL (0-0.5) Basophils # (Auto) 0.01 K/uL (0-0.2) RDW Standard Deviation 42.9 fL (36.4-46.3) RDW Coefficient of Variation 13.8 % (11.5-14.5) Immature Granulocyte % (Auto) 0.3 % Immature Granulocyte # (Auto) 0.04 K/uL (0.00-0.02) Anion Gap 8.0 mmol/L (3-11) Est Creatinine Clear Calc Drug Dose 79.3 ml/min Estimated GFR () 66.4 Estimated GFR (Non- 57.3 BUN/Creatinine Ratio 12.6 (10-20) Calcium Level 8.9 mg/dl (8.5-10.1) Total Bilirubin 0.5 mg/dl (0.2-1) Aspartate Amino Transf (AST/SGOT) 17 U/L (15-37) Alanine Aminotransferase (ALT/SGPT) 21 U/L (12-78) Alkaline Phosphatase 100 U/L (45-117) Total Protein 7.8 gm/dl (6.4-8.2) Albumin 3.3 gm/dl (3.4-5.0) Globulin 4.5 gm/dl (2.5-4.0) Albumin/Globulin Ratio 0.7 (0.9-2) Laboratory results as reviewed by me. Medications Administered Medications (Trade) Dose Ordered Sig/Aubree Route Start Time Stop Time Status Last Admin Dose Admin Ciprofloxacin (Cipro Tab) 500 mg NOW STAT PO 11/19/16 00:48 11/19/16 00:50 DC 11/19/16 01:06 500 MG Metronidazole (Flagyl Tab) 500 mg NOW STAT PO 11/19/16 00:48 11/19/16 00:50 DC 11/19/16 01:06 500 MG ED Course 2329: The patient was evaluated in room C10. A complete history and physical exam was performed. 0045: Upon reevaluation, the patient appeared to have improvement of her symptoms. I discussed tonight's findings with the patient. She verbalized agreement of the treatment plan. The patient was discharged home. 0048: Ordered Flagyl Tab 500 mg PO, Cipro Tab 500 mg PO. Medical Decision This is a 71-year-old female who presents with diarrhea and abdominal pain. Differential diagnosis includes colitis, diverticulitis, foodborne illness, enteritis, dehydration. I did perform a limited focused review of portions of the patient's old chart on the electronic medical record. The patient has had no recent pertinent visits to this hospital. Medication Reconciliation: I attest that I have personally reviewed the patient' s current medication list. Blood Pressure Screening: Patient was found to have an elevated blood pressure and was referred to their primary doctor for recheck and further treatment. I did evaluate the patient as noted above. IV access was established. I did order stool cultures and C. difficile testing but the patient was unable to give us a sample. I did order and review the patient's blood work as noted in the electronic medical record. She has mild hypokalemia likely from her diarrhea. Her white blood cell count is slightly elevated. I did order a CT of the abdomen and pelvis. I did review the images myself as well as the radiology report as described above. The patient has wall thickening to her sigmoid consistent with colitis/diverticulitis. I did discuss the test results with the patient. She was given Cipro and Flagyl. She was advised follow closely with her doctor and discharged with a prescription for 10 days of Cipro and Flagyl. Impression Primary Impression: Proctitis Additional Impression: Hypokalemia Scribe Attestation The scribe's documentation has been prepared under my direct and personally reviewed by me in its entirety. I confirm that the note above accurately reflects all work, treatment, procedures, and medical decision making performed by me. Departure Information Dispostion Home / Self-Care Prescriptions Metronidazole (Flagyl) 500 Mg Tab 500 MG PO TID for 10 Days, #30 TAB Prov: Benedicto Lara M.D. 11/19/16 Ciprofloxacin Hcl (CIPRO) 500 Mg Tab 500 MG PO BID, #19 TAB Prov: Benedicto Lara M.D. 11/19/16 Referrals Ty Obando M.D. (PCP) Forms HOME CARE DOCUMENTATION FORM, IMPORTANT VISIT INFORMATION, WORK / SCHOOL INSTRUCTIONS Patient Instructions My [facility] Additional Instructions You have been examined and treated today on an emergency basis only. This is not a substitute for, or an effort to provide, complete comprehensive medical care. It is impossible to recognize and treat all injuries or illnesses in a single emergency department visit. It is therefore important that you follow up closely with your physician. Call as soon as possible for an appointment. Return for worsening symptoms or if you develop fever, vomiting, or any other concerning symptoms. Check your blood sugars regularly as the antibiotic Cipro can cause your blood sugars to drop by interacting with your diabetic meds. Problem Qualifiers
--- NOTE | 2016-11-19 07:05 | DIAGNOSTIC IMAGING REPORT ---
ABD/PELVIS IV CONTRAST ONLY HISTORY: 71 years-old Female acute lower abdominal pain with concern for diverticulitis COMPARISON: CT abdomen and pelvis 09/10/2014 TECHNIQUE: Multiple axial CT images of the abdomen and pelvis were obtained following the intravenous administration of 119 mL Optiray 320. A dose lowering technique was used consistent with the principals of LUL. FINDINGS: There is mild left greater than right subsegmental atelectasis and/or pleural scarring. 4 mm nodular density abutting the pleural surface within the medial segment right middle lobe is unchanged from 09/10/2014 compatible with benign etiology. No pneumoperitoneum is identified. Inferior cardiac chambers are unremarkable. Pacer leads overlie the right heart. Coronary arterial calcifications are seen. There is minimal contour nodularity of the liver which may reflect cirrhotic liver disease without ascites or significant varices identified. The spleen and adrenal glands are within normal limits. Prior cholecystectomy. There is moderate diffuse pancreatic atrophy. There is mild nonspecific stranding of the right greater than left kidneys without hydronephrosis or obstructing calculi. Phleboliths are seen within the pelvis. The urinary bladder is partially collapsed. Uterus appears age appropriate. Mild atherosclerosis of the abdominal aorta. There is no bulky retroperitoneal adenopathy. There is no bowel obstruction. Multiple sigmoid diverticuli are seen with mild wall thickening and adjacent inflammatory stranding in the adjacent mesial colon suggesting early acute diverticulitis without associated perforation or abscess at this time. The appendix appears surgically absent. Soft tissues are unremarkable. Bones are moderately demineralized. There is convex left curvature of the lumbar spine. Advanced intervertebral disc space narrowing and facet arthropathy is present at multiple levels in the lumbar spine. IMPRESSION: 1. Findings compatible with early acute uncomplicated sigmoid diverticulitis. 2. Prior cholecystectomy and appendectomy. 3. Minimal marginal nodularity of the liver without ascites may reflect cirrhotic liver disease. The above report was generated using voice recognition software. It may contain grammatical, syntax or spelling errors. Electronically signed by: Len Sams M.D. 11/19/2016 7:03 AM Dictated Date/Time: 11/19/2016 6:55 AM
== END 2016-11-19 01:12 | disposition home or self-care (01) ==
LOC: C.EDB 22:03 → C.EDC 11-19 01:12
DX: K62.89 Other specified diseases of anus and rectum (principal); E11.9 Type 2 diabetes mellitus without complications; R19.7 Diarrhea, unspecified; R11.0 Nausea; I10 Essential (primary) hypertension; J45.909 Unspecified asthma, uncomplicated; Z79.4 Long term (current) use of insulin; Z79.899 Other long term (current) drug therapy; Z99.81 Dependence on supplemental oxygen; Z95.0 Presence of cardiac pacemaker; Z82.49 Family history of ischemic heart disease and other diseases of the circulatory system; E87.6 Hypokalemia

== ENCOUNTER → 2017-02-25 | Outpatient (CLI) | payer BC ==
[~2017-02-25] MED LIST changes: -ADVIN10/60 INH; +ADVIN25/60 INH; -AMARYL PO; +CIPR-255 PO; -GFNSR600 PO; +GLIM2TAB2 PO; +GUAI1TAB55 PO; +INSDGIPEN SC; -INSDGIPEN SQ; -PRD20 PO
[2017-02-25 14:48] LABS: BASO % 0.2 %; BASO ABS # 0.02 K/uL (0-0.2); COMPLETE YES; HEMATOCRIT 47.6 % (37-47); IG% 0.4 %; LYMPH % 30.7 %; LYMPH ABS # 3.43 K/uL (1.2-3.4); MEAN CORPUSCULAR HEMOGLOBIN 30.1 pg (25-34); MEAN CORPUSCULAR HGB CONC 33.4 g/dl (32-36); MEAN PLATELET VOLUME 11.3 fL (7.4-10.4); MONO % 6.9 %; NEUT % 59.8 %; PLATELET COUNT 235 K/uL (130-400); RED BLOOD COUNT 5.29 M/uL (4.2-5.4); WHITE BLOOD COUNT 11.18 K/uL (4.8-10.8)
[2017-02-25 15:07] LABS: BLOOD UREA NITROGEN 19 mg/dl (7-18); BUN/CREATININE RATIO 17.6 (10-20); CALCIUM 9.3 mg/dl (8.5-10.1); CARBON DIOXIDE 28 mmol/L (21-32); CHLORIDE 101 mmol/L (98-107); CREATININE 1.06 mg/dl (0.60-1.20); GLUCOSE 228 mg/dl (70-99); SODIUM 137 mmol/L (136-145)
== END | disposition home or self-care (01) ==
LOC: C.LAB1850 13:52
PROVIDERS: ATTEND Urology
DX: Z01.812 Encounter for preprocedural laboratory examination (principal); N39.41 Urge incontinence

== ENCOUNTER → 2017-05-06 | Outpatient (CLI) | payer BC ==
[2017-05-06 14:39] LABS: BASO % 0.2 %; BASO ABS # 0.02 K/uL (0-0.2); EOS % 1.6 %; EOS ABS # 0.19 K/uL (0-0.5); HEMATOCRIT 45.8 % (37-47); HEMOGLOBIN 15.4 g/dL (12.0-16.0); IG# 0.11 K/uL (0.00-0.02); LYMPH % 22.1 %; LYMPH ABS # 2.56 K/uL (1.2-3.4); MEAN CELL VOLUME 89.6 fL (80-100); MEAN CORPUSCULAR HEMOGLOBIN 30.1 pg (25-34); MEAN CORPUSCULAR HGB CONC 33.6 g/dl (32-36); MEAN PLATELET VOLUME 11.1 fL (7.4-10.4); MONO % 6.2 %; MONO ABS # 0.72 K/uL (0.11-0.59); NEUT % 68.9 %; NEUT ABS # 7.97 K/uL (1.4-6.5); PLATELET COUNT 236 K/uL (130-400); RED CELL DISTRIBUTION WIDTH SD 42.2 fL (36.4-46.3); WHITE BLOOD COUNT 11.57 K/uL (4.8-10.8)
[2017-05-06 16:43] LABS: ALBUMIN 3.5 gm/dl (3.4-5.0); BLOOD UREA NITROGEN 20 mg/dl (7-18); CALCIUM 9.4 mg/dl (8.5-10.1); CARBON DIOXIDE 26 mmol/L (21-32); CREATININE 1.01 mg/dl (0.60-1.20); GLUCOSE 222 mg/dl (70-99); POTASSIUM 4.5 mmol/L (3.5-5.1); SODIUM 135 mmol/L (136-145)
[2017-05-06 16:57] LABS: ALKALINE PHOSPHATASE 121 U/L (45-117); ALT/SGPT 18 U/L (12-78); AST/SGOT 13 U/L (15-37); CHOLESTEROL 176 mg/dl (0-200); LDL CHOLESTEROL CALCULATED 99 mg/dl; TOTAL PROTEIN 8.4 gm/dl (6.4-8.2)
[2017-05-07 07:44] LABS: HEMOGLOBIN A1C 8.8 % (4.5-5.6)
== END | disposition home or self-care (01) ==
LOC: C.LAB1850 13:57
PROVIDERS: ATTEND Internal Medicine Pulmonary Disease
DX: F41.9 Anxiety disorder, unspecified (principal); J44.9 Chronic obstructive pulmonary disease, unspecified; F32.9 Major depressive disorder, single episode, unspecified; E11.9 Type 2 diabetes mellitus without complications; E66.01 Morbid (severe) obesity due to excess calories; G47.34 Idiopathic sleep related nonobstructive alveolar hypoventilation; I87.2 Venous insufficiency (chronic) (peripheral)

== ENCOUNTER → 2017-08-29 | Outpatient (CLI) | payer BC ==
[2017-08-29 17:06] LABS: BASO % 0.2 %; BASO ABS # 0.02 K/uL (0-0.2); EOS % 1.9 %; EOS ABS # 0.24 K/uL (0-0.5); HEMATOCRIT 45.7 % (37-47); HEMOGLOBIN 15.8 g/dL (12.0-16.0); IG# 0.07 K/uL (0.00-0.02); LYMPH ABS # 4.02 K/uL (1.2-3.4); MEAN CELL VOLUME 87.9 fL (80-100); MEAN CORPUSCULAR HEMOGLOBIN 30.4 pg (25-34); MEAN CORPUSCULAR HGB CONC 34.6 g/dl (32-36); MEAN PLATELET VOLUME 11.1 fL (7.4-10.4); MONO % 6.9 %; MONO ABS # 0.87 K/uL (0.11-0.59); NEUT % 58.4 %; NEUT ABS # 7.34 K/uL (1.4-6.5); PLATELET COUNT 250 K/uL (130-400); RED CELL DISTRIBUTION WIDTH CV 13.2 % (11.5-14.5); RED CELL DISTRIBUTION WIDTH SD 42.2 fL (36.4-46.3); WHITE BLOOD COUNT 12.56 K/uL (4.8-10.8)
[2017-08-29 17:40] LABS: ALBUMIN 3.7 gm/dl (3.4-5.0); ALT/SGPT 20 U/L (12-78); AST/SGOT 14 U/L (15-37); BLOOD UREA NITROGEN 17 mg/dl (7-18); CALCIUM 9.3 mg/dl (8.5-10.1); CARBON DIOXIDE 26 mmol/L (21-32); CREATININE 1.02 mg/dl (0.60-1.20); GLUCOSE 203 mg/dl (70-99); POTASSIUM 3.8 mmol/L (3.5-5.1); SODIUM 137 mmol/L (136-145)
[2017-08-29 17:43] LABS: ALKALINE PHOSPHATASE 120 U/L (45-117); TOTAL PROTEIN 8.7 gm/dl (6.4-8.2)
[2017-08-30 07:43] LABS: HEMOGLOBIN A1C 8.6 % (4.5-5.6)
== END | disposition home or self-care (01) ==
LOC: C.LAB1850 16:13
PROVIDERS: ATTEND Urology
DX: E11.9 Type 2 diabetes mellitus without complications (principal); R05 Cough; G47.34 Idiopathic sleep related nonobstructive alveolar hypoventilation; J44.9 Chronic obstructive pulmonary disease, unspecified; I10 Essential (primary) hypertension; N39.41 Urge incontinence; Z01.812 Encounter for preprocedural laboratory examination

== ENCOUNTER 2019-05-16 12:52 | Inpatient (IN) ==
[2019-05-16] MEDS ORDERED: SODIUM CHLORIDE 0.9% 1000ML 1,000 ML IV ONE (14:15)
[2019-05-16 15:00] LABS: Basophils # (auto) 0.03 K/uL (0-0.2); Basophils % (auto) 0.2 %; Eosinophils % (auto) 1.4 %; Hematocrit (blood only) 40.9 % (37-47); Hemoglobin 13.6 g/dL (12.0-16.0); Immature Granulocytes # (auto) 0.08 K/uL (0.00-0.02); Immature Granulocytes % (auto) 0.6 %; Lymphocytes # (auto) 3.09 K/uL (1.2-3.4); Lymphocytes % (auto) 22.4 %; Mean Corpuscular Hemoglobin 29.5 pg (25-34); Mean Corpuscular Hgb Conc 33.3 g/dL (32-36); Mean Corpuscular Volume 88.7 fL (80-100); Mean Platelet Volume 10.7 fL (7.4-10.4); Monocytes # (auto) 0.96 K/uL (0.11-0.59); Monocytes % (auto) 6.9 %; Neutrophils # (auto) 9.46 K/uL (1.4-6.5); Neutrophils % (auto) 68.5 %; Platelet Count 263 K/uL (130-400); RDW Coefficient of Variation 13.7 % (11.5-14.5); RDW Standard Deviation 44.6 fL (36.4-46.3); Red Blood Count 4.61 M/uL (4.2-5.4); White Blood Count 13.82 K/uL (4.8-10.8)
[2019-05-16 15:21] LABS: Partial Thromboplastin Ratio 0.9; Partial Thromboplastin Time 25.6 Seconds (21.0-31.0); Prothrombin Time 10.7 Seconds (9.0-12.0)
[2019-05-16 15:25] LABS: Albumin Globulin Ratio 0.6 (0.9-2); Albumin Level 2.8 gm/dl (3.4-5.0); BUN Creatinine Ratio 17.7 (10-20); Bilirubin,Total 0.5 mg/dl (0.2-1); C Reactive Protein 8.67 mg/dl (0-0.29); Calcium 8.8 mg/dl (8.5-10.1); Creatinine Clr Calc Pharmacy 62.8 ml/min; Est GFR (African American) 52.1; Est GFR (Non-African American) 44.9; Globulin 4.9 gm/dl (2.5-4.0); Total Protein 7.7 gm/dl (6.4-8.2)
[2019-05-16] MEDS ORDERED: cefTRIAXone SODIUM 2,000 MG/70 ML BAG IV STA (15:49)
[2019-05-16] MEDS ORDERED: DAPTOmycin 575 MG in SYRINGE 0 ML IV ONE (15:49)
[2019-05-16 16:04] LABS: Influenza A virus by PCR Neg for Influ A (Neg); Influenza B virus by PCR Neg for Influ B (Neg)
[2019-05-16] MEDS ORDERED: IOVERSOL 100ml IV PRN (16:10)
--- NOTE | 2019-05-16 16:19 | CT Scan Report ---
Study: CT maxillofacial region HISTORY:, Cellulitis COMPARISON: None. FINDINGS: Findings consistent with mild soft tissue cellulitis anterior to the left lobe as well as l eft orbit. This is seen to a lesser extent in the left premaxillary region. No true bony destructive process is seen. Retroseptal structures are intact. No evidence for drainable abscess or collection. IMPRESSION:: 1 mild left periorbital cellulitis/premaxillary cellulitis. 2. No significant involvement of the globe or retroseptal structures. 3. No drainable abscess or collection. Electronically signed by: Alexander King M.D. 05/16/2019 4:17 PM
--- NOTE | 2019-05-16 16:46 | Emergency Department Note ---
History of Present Illness General Chief complaint: Skin Problem Stated complaint: EYE & UNDER BELLY INFECTION Time Seen by Provider: 05/16/19 13:39 History of Present Illness Maximum Pain Intensity: 6 74-year-old female who presents to the emergency department with complaint of worsening infection under her lower abdomen, lower lip and left eye region. The patient reports a history of diabetes and bladder incontinence. The patient saw a urologist in [place] 1 week ago to discuss Botox injections. During the exam, the urologist reported that the patient had a rash under her pannus. The patient was started on fluconazole, and provided an antifungal powder. The patient reports that within a few days, she then started to develop a similar rash on her lower lip and around the left thigh. She now reports progressively worsening left thigh pain with drainage. She denies any intraoral lesions, although she did have a sore throat last week as well that has since resolved. The patient has not had any other recent antibiotic treatment, fevers or chills, although she reports that her temperature is usually lower than most. The patient rates her overall discomfort a 5 out of 10. Home Medications Home Medications Medication Instructions Recorded Confirmed Type cyanocobalamin (vitamin B-12) 1,000 mcg PO DAILY 03/30/18 05/16/19 History fluticasone propion-salmeterol 1 inh INHALATION BID 03/30/18 05/16/19 History [Advair Diskus] glimepiride 2 mg PO TID 03/30/18 05/16/19 History lorazepam 0.5 mg PO BID PRN 03/30/18 05/16/19 History Atrovent HFA 1 inha INH TID PRN 04/16/18 05/16/19 History blood sugar diagnostic #10 ea 11/24/18 03/21/19 History insulin syringe-needle U-100 0.3 #10 ea 11/24/18 03/21/19 History mL 31 gauge x 5/16" lancets 30 gauge #25 ea 11/24/18 03/21/19 History insulin glargine 100 unit/mL (3 See Rx Instructions .ROUTE 04/23/19 05/16/19 Rx mL) subcutaneous pen .COMPLEX #9 milliliter sitagliptin 100 mg tablet See Rx Instructions .ROUTE 04/23/19 05/16/19 Rx .COMPLEX #30 tablet dulaglutide [Trulicity] 0.75 mg SQ WE 05/16/19 05/16/19 History fluconazole 100 mg PO QAM 05/16/19 05/16/19 History hydrochlorothiazide 25 mg PO QAM 05/16/19 05/16/19 History losartan 100 mg PO QAM 05/16/19 05/16/19 History omeprazole 20 mg PO QAM 05/16/19 05/16/19 History venlafaxine 150 mg PO QAM 05/16/19 05/16/19 History Allergies Allergy/AdvReac Type Severity Reaction Status Date / Time chocolate flavor Allergy Intermediate Headache Verified 05/16/19 15:53 erythromycin base Allergy Intermediate CONFUSION, Verified 05/16/19 15:53 HEADACHE nitrofurantoin Allergy Intermediate 15 Verified 05/16/19 15:53 different symptoms Past Med/Surg History Medical History Asthma (Chronic) wears 2lpm 02 nc hs Back pain Bronchitis with asthma, acute Chronic respiratory failure with hypoxia, on home O2 therapy Diabetes (Chronic) History of renal stent HTN (hypertension) (Chronic) Nephrolithiasis Pacemaker (Chronic) Proctitis Pyelonephritis Rectal abscess Renal colic Syncope and collapse (06/03/13) Temporal giant cell arteritis 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) Urinary incontinence Vertigo Surgical History History of appendectomy History of biopsy of temporal artery History of colonoscopy History of dilation and curettage History of knee replacement History of neurologic surgery rhizotomy History of total abdominal hysterectomy Knee arthropathy S/P cholecystectomy S/P hysterectomy S/P knee replacement Family History Family/Other Hypertension Diabetes Cancer Adopted Heart disease Grandmother Diabetes Heart disease Grandfather Heart disease Aunt Cancer Uncle Cancer Other No pertinent family history in first degree relatives Social History Preferred Language: Swedish Communication Ability: Effective Web Application Tester Required: No Beliefs That Will Affect Care: None marital status: / Current Living Situation: Alone Feels Safe at Home: Yes Smoking Status: Former smoker Hx Alcohol Use: No Hx Substance Use: No Review of Systems 10 system review was performed and was negative except for pertinent positives and negatives as indicated in history of present illness Physical Exam Vital Signs Vital Signs - 24 hr 05/16/19 13:01 05/16/19 14:52 05/16/19 17:00 Temperature 36.7 C Temperature Source Oral Pulse Rate 72 Pulse Rate [Finger] 71 70 Respiratory Rate 16 20 20 Respiratory Effort / Characteristics Non-Labored Spontaneous Respiratory Depth Normal Respiratory Pattern Regular Blood Pressure 134/76 Blood Pressure [Right Arm] 126/42 L 137/66 Blood Pressure Mean 95 Blood Pressure Mean [Right Arm] 70 89 Blood Pressure Position [Right Arm] Lying Pulse Oximetry 93 93 93 Oxygen Delivery Method Room Air Room Air Sepsis Recent Fever Within 48 Hours No Sepsis New/Unexplained Change in Mental Status No Sepsis Action Taken by Nursing No Action Required CONSTITUTIONAL: Morbidly obese male, alert and oriented X 3. Patient does not appear acutely ill, nor does she appear in any acute distress or discomfort. HEENT: Examination shows a left periorbital scaly and erythematous rash with mild serous drainage. Conjunctive is also injected. The patient does not have any significant discomfort with extraocular movements, or signs of entrapment. No other erythema on the face is noted. Pupils equal, round and reactive. Ears and nares are clear. Examination of the oropharynx does not show any tongue plaque or other intraoral lesions. NECK: Full active range of motion without discomfort. LYMPHATICS: No cervical chain adenopathy. RESPIRATORY: Clear to auscultation bilaterally with no wheezing, crackles, rhonchi or stridor. CARDIOVASCULAR: Regular rate and rhythm with no murmurs, rubs or gallops. GASTROINTESTINAL: Abdomen is protuberant but soft and nontender to palpation. Bowel sounds present in all quadrants. MUSCULOSKELETAL: Full range of motion of all joints without discomfort. INTEGUMENTARY: In addition to periorbital findings as discussed in the previous HEENT section, the patient does have a generalized erythematous rash with scaling under her abdominal pannus, left worse than right. Clear drainage is noted. No obvious fluctuance. HEMATOLOGIC: No ecchymosis or petechiae. PSYCHIATRIC: Positive affect. NEUROLOGIC: No focal neurologic deficits noted. Course Course Patient history and physical exam were performed. Nurse's notes were reviewed. Vital signs were reviewed and were normal. I did explain my concern for possible left periorbital cellulitis. I also explained that the skin condition should have improved with the fluconazole treatment. Because it is spreading, I did express concern for possible resistant fungal infection, versus possibility of secondary bacterial infection. I did recommend further work-up, and the patient was in agreement. IV access was established, and labs were drawn, including blood cultures x2. The patient was hydrated with a liter of normal saline. She refused any analgesics. While awaiting lab work, I did spend a significant amount of time discussing the case with Dr. Johnson, ED attending physician, and our ED pharmacist, regarding possible treatment options. Pending lab studies, it was suggested that the patient be treated with daptomycin and Rocephin with any concerns for bacterial infection. The pharmacist also mentioned that if this appears to be a resistant fungal infection, caspofungin may be considered for additional IV treatment while admitted. I then had an ext ensive conversation with our microbiology department, and they recommended collecting separate bacterial and fungal cultures. 6 culture tubes were collected for both bacterial and fungal cultures at each of the 3 sites. Review of labs did show a mild leukocytosis with left shift and bandemia. Lactate was also mildly elevated at 2.06. Glucose is elevated at 226. C-reactive protein is 8.67 creatinine was normal with a normal creatinine clearance. Given that the patient does have an elevated lactate, the patient was ordered with IV daptomycin and Rocephin. Dr. Johnson recommended consultation with the [facility] hospitalist group. I spoke with Dr. Ingram regarding the patient. The hospitalist service will further evaluate the patient. In the interim, CT of the facial bones with IV contrast did show a mild left periorbital cellulitis. The hospitalist group was advised of this finding. Please see their dictations for further treatment and final disposition. Administered Medications Heparin Sodium (Porcine) (Heparin Sodium (Porcine)) 5,000 units SQ Q12 TERI Stop: 06/15/19 20:59 Last Admin: 05/16/19 21:25 Dose: 5,000 units Documented by: [id number] Cosigned by: [id number] Insulin Aspart (Novolog Flexpen) 0 units SC ACHS TERI Stop: 06/15/19 20:59 Last Admin: 05/16/19 21:24 Dose: 2 units Documented by: [id number] Cosigned by: [id number] Insulin Glargine (Lantus Solostar Pen) 30 units SQ HS TERI Stop: 06/15/19 20:59 Last Admin: 05/16/19 21:24 Dose: 30 units Documented by: [id number] Cosigned by: [id number] Ioversol (Optiray 320 100ml) 90 ml IV ONCE PRN PRN Reason: Interaction Checking Stop: 05/20/19 16:09 Last Admin: 05/16/19 16:11 Dose: 90 ml Documented by: [id number] Miconazole Nitrate (Desenex) 1 appln EXT BID TERI Stop: 06/15/19 20:59 Last Admin: 05/16/19 21:17 Dose: 1 appln Documented by: [id number] Ofloxacin (Ocuflox 0.3%) 2 drops OP Q4HWA COUNT INCLUDES THE [facility] Stop: 05/26/19 20:59 Last Admin: 05/16/19 21:17 Dose: 2 drops Documented by: [id number] Discontinued Medications Sodium Chloride (Nss 1000ml) 1,000 mls @ 999 mls/hr IV .Q1H1M ONE Stop: 05/16/19 15:15 Last Infusion: 05/16/19 15:54 Dose: 0 mls/hr Documented by: [id number] Admin: 05/16/19 14:52 Dose: 999 mls/hr Documented by: [id number] Ceftriaxone Sodium (Rocephin) 2,000 mg in 70 mls @ 140 mls/hr IV NOW STA Stop: 05/16/19 16:18 Last Infusion: 05/16/19 17:04 Dose: 0 mls/hr Documented by: [id number] Admin: 05/16/19 16:30 Dose: 140 mls/hr Documented by: [id number] Daptomycin 575 mg/ Syringe 11.5 mls @ 5.75 mls/min IV NOW ONE; Protocol Stop: 05/16/19 15:50 Last Admin: 05/16/19 17:48 Dose: 5.75 mls/min Documented by: [id number] Medical Decision Making Medical Records Attestation: I reviewed the patient's medical records. Home Medications Current Medication List: was personally reviewed by me Laboratory Data Attestation: I reviewed the patient's lab results. Result diagrams: 05/16/19 14:45 05/16/19 14:45 Lab Results 05/16/19 05/16/19 05/16/19 Range/Units 14:45 14:45 14:45 WBC 13.82 H (4.8-10.8) K/uL RBC 4.61 (4.2-5.4) M/uL Hgb 13.6 (12.0-16.0) g/dL Hct 40.9 (37-47) % MCV 88.7 (80-100) fL MCH 29.5 (25-34) pg MCHC 33.3 (32-36) g/dL RDW Std Deviation 44.6 (36.4-46.3) fL RDW Coeff of Iman 13.7 (11.5-14.5) % Plt Count 263 (130-400) K/uL MPV 10.7 H (7.4-10.4) fL Immature Gran % (Auto) 0.6 % Neut % (Auto) 68.5 % Lymph % (Auto) 22.4 % [place] % (Auto) 6.9 % Eos % (Auto) 1.4 % Baso % (Auto) 0.2 % Immature Gran # (Auto) 0.08 H (0.00-0.02) K/uL Neut # (Auto) 9.46 H (1.4-6.5) K/uL Lymph # (Auto) 3.09 (1.2-3.4) K/uL [place] # (Auto) 0.96 H (0.11-0.59) K/uL Eos # (Auto) 0.20 (0-0.5) K/uL Baso # (Auto) 0.03 (0-0.2) K/uL ESR > 90 H (0-21) mm/hr PT 10.7 (9.0-12.0) Seconds INR 1.0 (0.9-1.1) APTT 25.6 (21.0-31.0) Seconds PTT Ratio 0.9 Sodium (136-145) mmol/L Potassium (3.5-5.1) mmol/L Chloride (98-107) mmol/L Carbon Dioxide (21-32) mmol/L Anion Gap (3-11) BUN (7-18) mg/dl Creatinine (0.6-1.2) mg/dl Est Cr Clr Drug Dosing ml/min Est GFR ( Amer) Est GFR (Non-Af Amer) BUN/Creatinine Ratio (10-20) Glucose (70-99) mg/dl POC Lactic Acid Edmund (0.90-1.70) mmol/L Calcium (8.5-10.1) mg/dl Total Bilirubin (0.2-1) mg/dl AST (15-37) U/L ALT (12-78) U/L Alkaline Phosphatase (45-117) U/L C-Reactive Protein (0-0.29) mg/dl Total Protein (6.4-8.2) gm/dl Albumin (3.4-5.0) gm/dl Globulin (2.5-4.0) gm/dl Albumin/Globulin Ratio (0.9-2) Specimen Hemolysis Influenza Type A (PCR) (Neg) Influenza Type B (PCR) (Neg) 05/16/19 05/16/19 05/16/19 Range/Units 14:45 14:54 15:18 WBC (4.8-10.8) K/uL RBC (4.2-5.4) M/uL Hgb (12.0-16.0) g/dL Hct (37-47) % MCV (80-100) fL MCH (25-34) pg MCHC (32-36) g/dL RDW Std Deviation (36.4-46.3) fL RDW Coeff of Iman (11.5-14.5) % Plt Count (130-400) K/uL MPV (7.4-10.4) fL Immature Gran % (Auto) % Neut % (Auto) % Lymph % (Auto) % [place] % (Auto) % Eos % (Auto) % Baso % (Auto) % Immature Gran # (Auto) (0.00-0.02) K/uL Neut # (Auto) (1.4-6.5) K/uL Lymph # (Auto) (1.2-3.4) K/uL [place] # (Auto) (0.11-0.59) K/uL Eos # (Auto) (0-0.5) K/uL Baso # (Auto) (0-0.2) K/uL ESR (0-21) mm/hr PT (9.0-12.0) Seconds INR (0.9-1.1) APTT (21.0-31.0) Seconds PTT Ratio Sodium 133 L (136-145) mmol/L Potassium 4.0 (3.5-5.1) mmol/L Chloride 100 (98-107) mmol/L Carbon Dioxide 28 (21-32) mmol/L Anion Gap 5.0 (3-11) BUN 21 H (7-18) mg/dl Creatinine 1.19 (0.6-1.2) mg/dl Est Cr Clr Drug Dosing 62.8 ml/min Est GFR ( Amer) 52.1 Est GFR (Non-Af Amer) 44.9 BUN/Creatinine Ratio 17.7 (10-20) Glucose 226 H (70-99) mg/dl POC Lactic Acid Edmund 2.06 H (0.90-1.70) mmol/L Calcium 8.8 (8.5-10.1) mg/dl Total Bilirubin 0.5 (0.2-1) mg/dl AST 20 (15-37) U/L ALT 21 (12-78) U/L Alkaline Phosphatase 115 (45-117) U/L C-Reactive Protein 8.67 H (0-0.29) mg/dl Total Protein 7.7 (6.4-8.2) gm/dl Albumin 2.8 L (3.4-5.0) gm/dl Globulin 4.9 H (2.5-4.0) gm/dl Albumin/Globulin Ratio 0.6 L (0.9-2) Specimen Hemolysis Influenza Type A (PCR) Neg for Influ A (Neg) Influenza Type B (PCR) Neg for Influ B (Neg) Imaging Data Attestation: I personally reviewed and interpreted this imaging study as follows: My Impression: My interpretation of a CT of the maxillofacial bones with IV contrast shows a mild left periorbital cellulitis without involvement of the globe or retroseptal structures. Radiologist report was also reviewed. Radiologist's Impression: Study: CT maxillofacial region HISTORY:, Cellulitis COMPARISON: None. FINDINGS: Findings consistent with mild soft tissue cellulitis anterior to the left lobe as well as left orbit. This is seen to a lesser extent in the left premaxillary region. No true bony destructive process is seen. Retroseptal structures are intact. No evidence for drainable abscess or collection. IMPRESSION:: 1 mild left periorbital cellulitis/premaxillary cellulitis. 2. No significant involvement of the globe or retroseptal structures. 3. No drainable abscess or collection. Blood Pressure Blood Pressure Findings: Normal blood pressure MDM Narrative Patient presents to the emergency department with complaint of a worsening skin infection of the abdominal pannus, lower lip and left periorbital region. CT of the facial bones does show evidence for left periorbital cellulitis. I suspect that the patient does have a candidal infection, however she has not responded to fluconazole. This is therefore concerning and reinforces the suspicion that the patient likely has a secondary infection as well. The patient is currently afebrile, but does have a mild leukocytosis with left shift and bandemia. Lactate is also mildly elevated. I do not suspect septicemia at this point. Impression & Plan Periorbital cellulitis of left eye, Diabetes, Cellulitis of skin of lip, Cellulitis, abdominal wall Discharge Plan Visit Data *Final* Discharge Date/Time: 05/16/19 19:04 Chief Complaint: Skin Problem Stated Complaint: EYE & UNDER BELLY INFECTION ED Provider: Kisha Johnson ED Midlevel Provider: Huber Joiner Discharge Problem: Periorbital cellulitis of left eye, Diabetes, Cellulitis of skin of lip, Cellulitis, abdominal wall Patient Disposition: Admitted As Inpatient Discharge Instructions Interventions: ED Discharge Assessment Last Done: 05/16/19 19:04
--- NOTE | 2019-05-16 17:31 | History & Physical Report ---
Date of Service May 16, 2019 Assessment & Plan (1) Periorbital cellulitis of left eye: * Admit to general medical floor-likely secondary to drainage from conjunctivitis with resultant irritation of skin on face * No evidence of spread beyond orbit * No evidence of sepsis, but with leukocytosis, elevated ESR >90 secondary to cellulitis * Warm compress TID to left eye * Continue Dapto/Ceftriaxone IV * Blood Cultures pending * follow clinically (2) Conjunctivitis: Left eye, with copious purulent drainage -start Ocuflox (3) Candidal intertrigo: -left groin and underneath pannus of abdomen, left breast -start miconazole powder -keep areas dry Wound RN consult (4) Urinary incontinence: * At night. Likely contributing to persistent rash below abdominal pannus. * Follows with Urology in [place]. Recent discussion regarding Botox injections. (5) Diabetes: * With chronic neuropathy. Last A1c 9.4 in September 2018. Repeat in AM * Hold home medications - Brina Cabrera * ISS while inpatient. Continue home 30units insulin QAM. BSG ACHS * Continue to monitor (6) COPD (chronic obstructive pulmonary disease): * Chronic. Stable. No s/sx of exacerbation currently. On 2L O2 at night, but per patient she is not very compliant. Less than 1-2x/week. Record of patient with hx of ANJALI but refusing CPAP -- per patient, she had a sleep study and was told she DID NOT have ANJALI -- she states would probably tolerate a mask better than NC due to it drying her out. * Will order O2 overnight * Continue home Atrovent (7) Chronic respiratory failure with hypoxia, on home O2 therapy: * As above -- non-compliant (8) Chronic kidney disease, stage III (moderate): * Appears baseline Cr 1.08-1.2, GFR 40-50s * Cr stable at 1.19. eGFR 44.9. * Continue to monitor (9) Essential hypertension: * Chronic. Stable * BP currently 137/66 * Continue home hctz 25mg (10) Cellulitis of skin of lip: * New -- continue to monitor. No evidence of vesicles concerning for herpes. (11) Venous stasis: * Chronic. Stable (12) Depression: * Chronic. Stable. * Continue lorazepam prn * Of note, patient to have venlafaxine increased from 150mg to 225mg daily as outpatient but she states she was never given a new prescription. Confirmed with outpatient note. Will increase dose to 225mg and continue at discharge. (13) Anxiety: * As above. Continue lorazepam as above (14) GERD (gastroesophageal reflux disease): * Chronic. Stable. * Continue PPI (15) DVT prophylaxis: * SCDs, Heparin Dispo: likely to remain hospitalized for 1-2 days History of Present Illness Chief Complaint: Eye Pain, Drainage Primary Care Provider: Ty Obando MD 74 year old white female with PMH significant for DM (on Insulin) with chronic neuropathy, HTN, COPD and chronic respiratory failure with hypoxia (2L HS), GERD, urinary incontinence and depression presented to emergency department with 3 days of itching and redness of her left eye. She states for the past two days it has been crusted shut and she has noticed "clear/sticky" discharge that she has been blotting. She states she does not know of any trauma or scratch/bite to the area. She states she is able to see out of her eye and pain is not worsened with movement, describes it as more of a discomfort than pain. She states occasionally it will be cloudy but she is still able to see. Per chart, patient with history of temporal arteritis, however patient denies ever having this and is not on any kind of chronic steroid therapy. 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 She also has concerns regarding a persistent rash beneath her belly, worse on the left side that the right, which has been there for over two and a half weeks. She states she had been given a topical salve and what she believes was similar to nystatin to apply to the area and finished a course of "fluconazole" from her Urologist, which she follows with for incontinence and was just seen last in [place] for possible Botox injections, but she has had no improvement. She states it is itchy. She does have a history of urinary incontinence at night and sleeps solely on her left side. She believes when she is incontinent at night the urine pulls in that area, and has been wearing a liner for weeks. She states she thinks she might have had strep throat over a week ago but did not seek treatment. Had considered the possibility of seasonal allergies. ER Course: Treated with Dapto and Rocephin. Multiple bacterial and fungal cultures collected. Lactate 2.06. Glucose 226. CRP 8.67. Cr wnl. CT facial bones with evidence of mild left periorbital cellulitis. Discussion with pharmacy with consideration of Caspofungin if no improvement. Allergies Allergy/AdvReac Type Severity Reaction Status Date / Time chocolate flavor Allergy Intermediate Headache Verified 05/16/19 15:53 erythromycin base Allergy Intermediate CONFUSION, Verified 05/16/19 15:53 HEADACHE nitrofurantoin Allergy Intermediate 15 Verified 05/16/19 15:53 different symptoms Home Medications Home Medications Medication Instructions Recorded Confirmed Type cyanocobalamin (vitamin B-12) 1,000 mcg PO DAILY 03/30/18 05/16/19 History fluticasone propion-salmeterol 1 inh INHALATION BID 03/30/18 05/16/19 History [Advair Diskus] glimepiride 2 mg PO TID 03/30/18 05/16/19 History lorazepam 0.5 mg PO BID PRN 03/30/18 05/16/19 History Atrovent HFA 1 inha INH TID PRN 04/16/18 05/16/19 History blood sugar diagnostic #10 ea 11/24/18 03/21/19 History insulin syringe-needle U-100 0.3 #10 ea 11/24/18 03/21/19 History mL 31 gauge x 5/16" lancets 30 gauge #25 ea 11/24/18 03/21/19 History insulin glargine 100 unit/mL (3 See Rx Instructions .ROUTE 04/23/19 05/16/19 Rx mL) subcutaneous pen .COMPLEX #9 milliliter sitagliptin 100 mg tablet See Rx Instructions .ROUTE 04/23/19 05/16/19 Rx .COMPLEX #30 tablet dulaglutide [Trulicity] 0.75 mg SQ WE 05/16/19 05/16/19 History fluconazole 100 mg PO QAM 05/16/19 05/16/19 History hydrochlorothiazide 25 mg PO QAM 05/16/19 05/16/19 History losartan 100 mg PO QAM 05/16/19 05/16/19 History omeprazole 20 mg PO QAM 05/16/19 05/16/19 History venlafaxine 150 mg PO QAM 05/16/19 05/16/19 History Past Med/Surg History Medical History Asthma (Chronic) wears 2lpm 02 nc hs Back pain Bronchitis with asthma, acute Chronic respiratory failure with hypoxia, on home O2 therapy Diabetes (Chronic) History of renal stent HTN (hypertension) (Chronic) Nephrolithiasis Pacemaker (Chronic) Proctitis Pyelonephritis Rectal abscess Renal colic Syncope and collapse (06/03/13) Temporal giant cell arteritis 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) Urinary incontinence Vertigo Surgical History History of appendectomy History of biopsy of temporal artery History of colonoscopy History of dilation and curettage History of knee replacement History of neurologic surgery rhizotomy History of total abdominal hysterectomy Knee arthropathy S/P cholecystectomy S/P hysterectomy S/P knee replacement Family History Family/Other Hypertension Diabetes Cancer Adopted Heart disease Grandmother Diabetes Heart disease Grandfather Heart disease Aunt Cancer Uncle Cancer Other No pertinent family history in first degree relatives Social History Preferred Language: Estonian Communication Ability: Effective 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 Beliefs That Will Affect Care: None marital status: / Current Living Situation: Alone Feels Safe at Home: Yes Smoking Status: Former smoker Hx Alcohol Use: No Hx Substance Use: No Review of Systems Review of Systems: All systems reviewed & are unremarkable except as noted in HPI & below Constitutional: no chills and no weakness thinks she may have had a 0.2 elevation in her temperature Eyes: + discharge, + eye pain (described as discomfort) and + itchy eyes; no diplopia and no worsening vision Ear, Nose, Mouth, Throat: + post nasal drip; no sore throat and no dysphagia sores on lip Respiratory: no cough and no dyspnea Cardiovascular: no chest pain, no palpitations and no edema Gastrointestinal: no abdominal pain, no nausea, no vomiting, no constipation and no diarrhea/loose stools Genitourinary: + urinary incontinence; no dysuria and no hematuria Musculoskeletal: no back pain and no neck pain Integumentary: + rash and + sores Neurologic: no syncope, no headache(s) and no confusion Psychiatric: + depression and + anxiety Endocrine: no fatigue and no polyphagia Hematologic / Lymphatic: no easy bleeding and no easy bruising Allergy / Immunological: + rash; no cough Physical Exam Constitutional: WD/WN, vitals as above + obese; no acute distress Eyes: + conjunctival abnormality (injection), PERRL and EOM intact bilaterally (without pain) dried crusting of eyelids, clear drainage ENMT: cobblestone appearance of posterior oropharynx dentures present several lesions to lips with crusting. without vesicles. non tender Neck: trachea midline, no thyromegaly Respiratory: normal respiratory effort, lungs clear to auscultation Cardiovascular: RRR, no murmur, no edema Gastrointestinal (Abdomen): normal bowel sounds, soft, nontender, no hepatosplenomegaly Musculoskeletal: no cyanosis or clubbing, extremities motor strength 5/5 Skin: erythematous rash below abdominal pannus, worse on left side with satellite lesions. Clear drainage. small erythema and rash under left breast, approx 2inches in diameter Neurologic: PERRL, EOMI, accommodation nl, no face palsy, no dysarthria Psychiatric: A+Ox3, euthymic affect Lymphatic: left sided anterior chain adenopathy Results & Data Vital Signs (Past 12 Hours) Vital Signs Temp Pulse Pulse Resp BP BP Pulse Ox 05/16/19 17:00 70 20 137/66 93 05/16/19 14:52 71 20 126/42 L 93 05/16/19 13:01 36.7 C 72 16 134/76 93 Laboratory Results 05/16/19 05/16/19 05/16/19 Range/Units Unknown 15:18 15:00 WBC (4.8-10.8) K/uL RBC (4.2-5.4) M/uL Hgb (12.0-16.0) g/dL Hct (37-47) % MCV (80-100) fL MCH (25-34) pg MCHC (32-36) g/dL RDW Std Deviation (36.4-46.3) fL RDW Coeff of Iman (11.5-14.5) % Plt Count (130-400) K/uL MPV (7.4-10.4) fL Immature Gran % (Auto) % Neut % (Auto) % Lymph % (Auto) % [place]kin % (Auto) % Eos % (Auto) % Baso % (Auto) % Immature Gran # (Auto) (0.00-0.02) K/uL Neut # (Auto) (1.4-6.5) K/uL Lymph # (Auto) (1.2-3.4) K/uL L[place]kin # (Auto) (0.11-0.59) K/uL Eos # (Auto) (0-0.5) K/uL Baso # (Auto) (0-0.2) K/uL ESR (0-21) mm/hr PT (9.0-12.0) Seconds INR (0.9-1.1) APTT (21.0-31.0) Seconds PTT Ratio Sodium (136-145) mmol/L Potassium (3.5-5.1) mmol/L Chloride (98-107) mmol/L Carbon Dioxide (21-32) mmol/L Anion Gap (3-11) BUN (7-18) mg/dl Creatinine (0.6-1.2) mg/dl Est Cr Clr Drug Dosing ml/min Est GFR ( Amer) Est GFR (Non-Af Amer) BUN/Creatinine Ratio (10-20) Glucose (70-99) mg/dl POC Lactic Acid Edmund (0.90-1.70) mmol/L Calcium (8.5-10.1) mg/dl Total Bilirubin (0.2-1) mg/dl AST (15-37) U/L ALT (12-78) U/L Alkaline Phosphatase (45-117) U/L C-Reactive Protein (0-0.29) mg/dl Total Protein (6.4-8.2) gm/dl Albumin (3.4-5.0) gm/dl Globulin (2.5-4.0) gm/dl Albumin/Globulin Ratio (0.9-2) Specimen Hemolysis Influenza Type A (PCR) Neg for Influ A (Neg) Influenza Type B (PCR) Neg for Influ B (Neg) Ref Lab Test Result Pending Pending 05/16/19 05/16/19 05/16/19 Range/Units 15:00 14:54 14:45 WBC (4.8-10.8) K/uL RBC (4.2-5.4) M/uL Hgb (12.0-16.0) g/dL Hct (37-47) % MCV (80-100) fL MCH (25-34) pg MCHC (32-36) g/dL RDW Std Deviation (36.4-46.3) fL RDW Coeff of Iman (11.5-14.5) % Plt Count (130-400) K/uL MPV (7.4-10.4) fL Immature Gran % (Auto) % Neut % (Auto) % Lymph % (Auto) % L[place]kin % (Auto) % Eos % (Auto) % Baso % (Auto) % Immature Gran # (Auto) (0.00-0.02) K/uL Neut # (Auto) (1.4-6.5) K/uL Lymph # (Auto) (1.2-3.4) K/uL L[place]kin # (Auto) (0.11-0.59) K/uL Eos # (Auto) (0-0.5) K/uL Baso # (Auto) (0-0.2) K/uL ESR (0-21) mm/hr PT (9.0-12.0) Seconds INR (0.9-1.1) APTT (21.0-31.0) Seconds PTT Ratio Sodium 133 L (136-145) mmol/L Potassium 4.0 (3.5-5.1) mmol/L Chloride 100 (98-107) mmol/L Carbon Dioxide 28 (21-32) mmol/L Anion Gap 5.0 (3-11) BUN 21 H (7-18) mg/dl Creatinine 1.19 (0.6-1.2) mg/dl Est Cr Clr Drug Dosing 62.8 ml/min Est GFR ( Amer) 52.1 Est GFR (Non-Af Amer) 44.9 BUN/Creatinine Ratio 17.7 (10-20) Glucose 226 H (70-99) mg/dl POC Lactic Acid Edmund 2.06 H (0.90-1.70) mmol/L Calcium 8.8 (8.5-10.1) mg/dl Total Bilirubin 0.5 (0.2-1) mg/dl AST 20 (15-37) U/L ALT 21 (12-78) U/L Alkaline Phosphatase 115 (45-117) U/L C-Reactive Protein 8.67 H (0-0.29) mg/dl Total Protein 7.7 (6.4-8.2) gm/dl Albumin 2.8 L (3.4-5.0) gm/dl Globulin 4.9 H (2.5-4.0) gm/dl Albumin/Globulin Ratio 0.6 L (0.9-2) Specimen Hemolysis Influenza Type A (PCR) (Neg) Influenza Type B (PCR) (Neg) Ref Lab Test Result Pending 05/16/19 05/16/19 05/16/19 Range/Units 14:45 14:45 14:45 WBC 13.82 H (4.8-10.8) K/uL RBC 4.61 (4.2-5.4) M/uL Hgb 13.6 (12.0-16.0) g/dL Hct 40.9 (37-47) % MCV 88.7 (80-100) fL MCH 29.5 (25-34) pg MCHC 33.3 (32-36) g/dL RDW Std Deviation 44.6 (36.4-46.3) fL RDW Coeff of Iman 13.7 (11.5-14.5) % Plt Count 263 (130-400) K/uL MPV 10.7 H (7.4-10.4) fL Immature Gran % (Auto) 0.6 % Neut % (Auto) 68.5 % Lymph % (Auto) 22.4 % Lumpkin % (Auto) 6.9 % Eos % (Auto) 1.4 % Baso % (Auto) 0.2 % Immature Gran # (Auto) 0.08 H (0.00-0.02) K/uL Neut # (Auto) 9.46 H (1.4-6.5) K/uL Lymph # (Auto) 3.09 (1.2-3.4) K/uL Lumpkin # (Auto) 0.96 H (0.11-0.59) K/uL Eos # (Auto) 0.20 (0-0.5) K/uL Baso # (Auto) 0.03 (0-0.2) K/uL ESR > 90 H (0-21) mm/hr PT 10.7 (9.0-12.0) Seconds INR 1.0 (0.9-1.1) APTT 25.6 (21.0-31.0) Seconds PTT Ratio 0.9 Sodium (136-145) mmol/L Potassium (3.5-5.1) mmol/L Chloride (98-107) mmol/L Carbon Dioxide (21-32) mmol/L Anion Gap (3-11) BUN (7-18) mg/dl Creatinine (0.6-1.2) mg/dl Est Cr Clr Drug Dosing ml/min Est GFR ( Amer) Est GFR (Non-Af Amer) BUN/Creatinine Ratio (10-20) Glucose (70-99) mg/dl POC Lactic Acid Edmund (0.90-1.70) mmol/L Calcium (8.5-10.1) mg/dl Total Bilirubin (0.2-1) mg/dl AST (15-37) U/L ALT (12-78) U/L Alkaline Phosphatase (45-117) U/L C-Reactive Protein (0-0.29) mg/dl Total Protein (6.4-8.2) gm/dl Albumin (3.4-5.0) gm/dl Globulin (2.5-4.0) gm/dl Albumin/Globulin Ratio (0.9-2) Specimen Hemolysis Influenza Type A (PCR) (Neg) Influenza Type B (PCR) (Neg) Ref Lab Test Result Diagnostic Findings CT maxillofacial region HISTORY:, Cellulitis COMPARISON: None. FINDINGS: Findings consistent with mild soft tissue cellulitis anterior to the left lobe as well as left orbit. This is seen to a lesser extent in the left premaxillary region. No true bony destructive process is seen. Retroseptal structures are intact. No evidence for drainable abscess or collection. IMPRESSION:: 1 mild left periorbital cellulitis/premaxillary cellulitis. 2. No significant involvement of the globe or retroseptal structures. 3. No drainable abscess or collection. Code Status & VTE Plan Code Status Full CODE VTE Prophylaxis Plan VTE Prophylaxis will be ordered: Yes Supervising Physician Co-Signing Physician Notes PA Supervision Note: I personally saw and examined the patient. I verified all galvan points and agree with CHECO Avila with the following exceptions and/or additions: Patient here with complaint of drainage from left eye with irritation and then resulting redness of the left side of the face. Had a sore throat last week, likely some sort of viral illness predating the left eye conjunctivitis which now does appear to be bacterial in nature. No evidence of sepsis History and ROS reviewed as above Vitals reviewed Gen: AAOx3, NAD, morbidly obese HEENT: EOMI without pain in all directions, left eye with significant hyperemia and erythema of the conjunctiva, purulent crusted drainage of the lids and lashes, mild edema of the lids, oropharynx clear, bottom lip with crusted dry skin and mild rash, no erythema CV: RRR no mgr nl S1S2 Pulm: CTAB no wcr Abd: +BS soft NT ND no masses or hernias Ext: No edema, 2+ DP pulses Skin: Left periorbital area and left cheek with erythema and warmth as well as on left side of nasal bone; intertrigo area under the large pannus in the left groin with mild erythema with satellite lesions, some sloughing skin very superficially, mild tenderness to palpation Neuro: Full strength throughout Laboratory values and radiology studies reviewed 74-year-old morbidly obese female here with left periorbital cellulitis, left eye conjunctivitis, and Barby intertrigo -Treatment outlined as above -Continue ceftriaxone and daptomycin-follow CPK while on daptomycin -Start Ocuflox for conjunctivitis Follow cultures PG Care Time/CCT Total # of Minutes Spent Total Time Spent with Patient: Total time spent is greater than 50% in coordination of care (as documented) at patient's floor/unit and/or counseling patient:
--- NOTE | 2019-05-16 18:36 | Emergency Department Note ---
ED Visit Note Patient seen and evaluated bedside after discussion with physician workers compensation claims assistant. Please refer to his note for additional details. Patient with concerning skin findings now spreading to the face. Patient sent for CT to rule out orbital cellulitis. Patient is already been taking an antifungal agent. Due to failed outpatient therapy, patient's diabetic status, and concern for worsening infection, the physician workers compensation claims assistant discussed the case with the hospitalist for additional evaluation and management. Cultures drawn and sent on the patient as a precaution. Antibiotics discussed with pharmacist for appropriate coverage. .
[2019-05-16] MEDS ORDERED: POLYETHYLENE (MIRALAX) 17 GM PACK PO PRN (20:24)
[2019-05-16] MEDS ORDERED: GLUCOSE 40% GEL 15 GM TUBE PO PRN (20:24)
[2019-05-16] MEDS ORDERED: IPRATROPIUM BROMIDE HFA INHALER INH PRN (20:24)
[2019-05-16] MEDS ORDERED: CARBOHYDRATES FOR HYPOGLYCEMIA PO PRN (20:24)
[2019-05-16] MEDS ORDERED: GLUCAGON FOR INJ 1 MG VIAL SQ PRN (20:24)
[2019-05-16] MEDS ORDERED: GLUCOSE 10 TABS/TUBE PO PRN (20:24)
[2019-05-16] MEDS ORDERED: LORazepam 0.5 MG TAB PO PRN (20:24)
[2019-05-16] MEDS ORDERED: DEXTROSE 50% 50 ML SYRINGE IV PRN (20:24)
[2019-05-16] MEDS ORDERED: ONDANSETRON INJ 2 MG/ML 2 ML VIAL IV PRN (20:24)
[2019-05-16] MEDS ORDERED: ACETAMINOPHEN 325 MG TAB PO PRN (20:24)
[2019-05-16] MEDS: MICONAZOLE NITRATE POWDER 43 GM EXT SCH (21:17)
[2019-05-16] MEDS: OFLOXACIN 0.3% OP SOLN 5 ML BTL OP SCH (21:17)
[2019-05-16] MEDS: INSULIN ASPART 100 UNITS/ML 3 ML PEN SC SCH (21:24)
[2019-05-16] MEDS: INSULIN GLARGINE SOLOSTAR 100 UNITS/ML 3 ML PEN SQ SCH (21:24)
[2019-05-16] MEDS: HEPARIN SOD 5,000 UNIT/0.5 ML VIAL SQ SCH (21:25)
[2019-05-17 06:50] LABS: Basophils # (auto) 0.02 K/uL (0-0.2); Basophils % (auto) 0.2 %; Eosinophils # (auto) 0.23 K/uL (0-0.5); Eosinophils % (auto) 2.5 %; Hematocrit (blood only) 40.6 % (37-47); Hemoglobin 13.2 g/dL (12.0-16.0); Immature Granulocytes # (auto) 0.07 K/uL (0.00-0.02); Immature Granulocytes % (auto) 0.8 %; Lymphocytes # (auto) 3.14 K/uL (1.2-3.4); Lymphocytes % (auto) 34.7 %; Mean Corpuscular Hemoglobin 29.2 pg (25-34); Mean Corpuscular Hgb Conc 32.5 g/dL (32-36); Mean Corpuscular Volume 89.8 fL (80-100); Mean Platelet Volume 10.5 fL (7.4-10.4); Monocytes # (auto) 0.67 K/uL (0.11-0.59); Monocytes % (auto) 7.4 %; Neutrophils # (auto) 4.93 K/uL (1.4-6.5); Neutrophils % (auto) 54.4 %; Platelet Count 243 K/uL (130-400); RDW Coefficient of Variation 13.7 % (11.5-14.5); Red Blood Count 4.52 M/uL (4.2-5.4); White Blood Count 9.06 K/uL (4.8-10.8)
[2019-05-17 07:14] LABS: Estimated Average Glucose 200 mg/dl; Hemoglobin A1C 8.6 % (4.5-5.6)
[2019-05-17 07:21] LABS: Albumin Level 2.6 gm/dl (3.4-5.0); BUN Creatinine Ratio 17.4 (10-20); Calcium 8.6 mg/dl (8.5-10.1); Creatinine Clr Calc Pharmacy 63.9 ml/min; Est GFR (African American) 53.2; Est GFR (Non-African American) 45.9; Potassium 3.9 mmol/L (3.5-5.1)
[2019-05-17 07:24] LABS: Albumin Globulin Ratio 0.6 (0.9-2); Bilirubin,Total 0.4 mg/dl (0.2-1); C Reactive Protein 7.64 mg/dl (0-0.29); Globulin 4.5 gm/dl (2.5-4.0); Total Protein 7.1 gm/dl (6.4-8.2)
[2019-05-17] MEDS: CYANOCOBALAMIN 500 MCG TABLET (VITAMIN B-12) PO SCH (08:48)
[2019-05-17] MEDS: PANTOprazole 40 MG TAB PO SCH (08:50)
[2019-05-17] MEDS: FLUTICASONE/VILANTEROL 100/25MCG 14 PUFFS/INHALER INH SCH (08:50)
[2019-05-17] MEDS: MICONAZOLE NITRATE POWDER 43 GM EXT SCH ×2 (08:50→20:42)
[2019-05-17] MEDS: VENLAFAXINE HCL XR 75 MG CAPXR PO SCH (08:50)
[2019-05-17] MEDS: OFLOXACIN 0.3% OP SOLN 5 ML BTL OP SCH ×3 (08:51→15:48)
[2019-05-17] MEDS ORDERED: INFLUENZA VACCINE HIGH DOSE 65+ 0.5 ML SYR IM ONE (09:00)
[2019-05-17] MEDS ORDERED: hydroCHLOROthiazide 25 MG TAB PO SCH (09:00)
[2019-05-17] MEDS ORDERED: LOSARTAN POTASSIUM 50 MG TAB PO SCH (09:00)
[2019-05-17] MEDS: INSULIN ASPART 100 UNITS/ML 3 ML PEN SC SCH ×4 (09:43→20:53)
[2019-05-17] MEDS: HEPARIN SOD 5,000 UNIT/0.5 ML VIAL SQ SCH ×2 (09:44→20:51)
--- NOTE | 2019-05-17 12:09 | Hospitalist Progress Note ---
Date of Service May 17, 2019 Assessment & Plan (1) Periorbital cellulitis of left eye: * Improving * likely secondary to drainage from conjunctivitis with resultant irritation of skin on face * No evidence of spread beyond orbit. No evidence of sepsis, but with leukocytosis, elevated ESR >90 secondary to cellulitis. CRP improved to 7.64 today * Warm compress TID to left eye * Continue Ceftriaxone IV * Blood Cultures pending -- NGTD * Eye culture with group A beta strep -- MRSA negative. D/c Dapto at this time * Abd cx with group B strep * Follow clinically (2) Conjunctivitis: * Left eye, with copious purulent drainage -- drainage decreased today * Given culture, d/c ocuflox, initiated polymyxin ophth * Continue to monitor (3) Candidal intertrigo: * Improving -left groin and underneath pannus of abdomen, left breast * Continue miconazole powder * Wound RN consult (4) Urinary incontinence: * At night. Likely contributing to persistent rash below abdominal pannus. * Follows with Urology in [place]. Recent discussion regarding Botox injections. * Per patient, recently prescribed but has not started solifenacin 10mg -- will initiate given incontinence * Continue to monitor (5) Diabetes: * With chronic neuropathy. Last A1c 9.4 in September 2018. Repeat in AM * Hold home medications - Brina Cabrera * ISS while inpatient. Continue home 30units insulin QAM. BSG ACHS. Adjustments made to CF. * Continue to monitor (6) COPD (chronic obstructive pulmonary disease): * Chronic. Stable. No s/sx of exacerbation currently. On 2L O2 at night, but per patient she is not very compliant. Less than 1-2x/week. Record of patient with hx of ANJALI but refusing CPAP -- per patient, she had a sleep study and was told she DID NOT have ANJALI -- she states would probably tolerate a mask better than NC due to it drying her out. * O2 ordered overnight * Continue home Atrovent (7) Chronic respiratory failure with hypoxia, on home O2 therapy: * As above -- non-compliant (8) Chronic kidney disease, stage III (moderate): * Appears baseline Cr 1.08-1.2, GFR 40-50s * Cr stable at 1.17. eGFR 45.9. * Continue to monitor (9) Essential hypertension: * Chronic. Stable * BP currently 126/77 * Continue home hctz 25mg (10) Cellulitis of skin of lip: * New -- continue to monitor. No evidence of vesicles concerning for herpes. Improving today, could be secondary also to Strep infection (11) Venous stasis: * Chronic. Stable (12) Depression: * Chronic. Stable. * Continue lorazepam prn * Of note, patient to have venlafaxine increased from 150mg to 225mg daily as outpatient but she states she was never given a new prescription. Confirmed with outpatient note. * Continue venlafaxine 225mg daily (13) Anxiety: * As above. Continue lorazepam as above (14) GERD (gastroesophageal reflux disease): * Chronic. Stable. * Continue Protonix (15) DVT prophylaxis: * SCDs, Heparin Dispo: monitor for improvement, possible discharge on PO Amoxicillin Supervising Physician Co-Signing Physician Notes PA Supervision Note: I did not personally see or examine the patient today, but I verified all galvan points of CHECO Avila's assessment and plan with the following exceptions/additions: None Subjective Patient evaluated this morning with son at bedside. Continues to have some itchiness but denies any pain when touching her eye, which was painful yesterday. Occasional blurriness, but states she just received eye drops. States she was incontinent last night and woke up wet around 4am. She states she was supposed to take a new medication from her urologist, solifenacin, but she hasn't started it yet because she had been sleeping up in the chair. She has it in the room with her currently. Will order for today. Still continues to have some pain/soreness under pannus, worse on left. She states the itchiness has decreased though. Denies any fevers, chills, chest pain, shortness of breath, abdominal pain, n/v/d/c, dysuria. Review of Systems Review of Systems: All systems reviewed & are unremarkable except as noted in HPI & below Physical Exam Constitutional: WD/WN, vitals as above + obese; no acute distress Eyes: + conjunctival abnormality (injection), PERRL and EOM intact bilaterally (without pain) drainage left eye ENMT: cobblestone appearance of posterior oropharynx dentures present several lesions to lips with crusting, healing. without vesicles. non tender Neck: trachea midline, no thyromegaly Respiratory: normal respiratory effort, lungs clear to auscultation Cardiovascular: RRR, no murmur, no edema Gastrointestinal (Abdomen): normal bowel sounds, soft, nontender, no hepatosplenomegaly Musculoskeletal: no cyanosis or clubbing, extremities motor strength 5/5 Skin: erythematous rash below abdominal pannus, worse on left side with satellite lesions. Clear drainage, with purulent material crusted to lids/lashes. Smaller rash to right side, approx 3cm in diameter. Tender to palpation small erythema and rash under left breast, approx 2inches in diameter Neurologic: patellar DTR's 2+ bilat, sensation intact Psychiatric: A+Ox3, euthymic affect Results & Data Vital Signs (Past 12 Hours) Vital Signs Temp Pulse Resp BP Pulse Ox 05/17/19 08:33 36.7 C 66 19 126/77 94 Laboratory Results 05/17/19 05/17/19 05/17/19 Range/Units 11:57 08:27 06:30 WBC (4.8-10.8) K/uL RBC (4.2-5.4) M/uL Hgb (12.0-16.0) g/dL Hct (37-47) % MCV (80-100) fL MCH (25-34) pg MCHC (32-36) g/dL RDW Std Deviation (36.4-46.3) fL RDW Coeff of Iman (11.5-14.5) % Plt Count (130-400) K/uL MPV (7.4-10.4) fL Immature Gran % (Auto) % Neut % (Auto) % Lymph % (Auto) % [place] % (Auto) % Eos % (Auto) % Baso % (Auto) % Immature Gran # (Auto) (0.00-0.02) K/uL Neut # (Auto) (1.4-6.5) K/uL Lymph # (Auto) (1.2-3.4) K/uL [place] # (Auto) (0.11-0.59) K/uL Eos # (Auto) (0-0.5) K/uL Baso # (Auto) (0-0.2) K/uL ESR (0-21) mm/hr PT (9.0-12.0) Seconds INR (0.9-1.1) APTT (21.0-31.0) Seconds PTT Ratio Sodium (136-145) mmol/L Potassium (3.5-5.1) mmol/L Chloride (98-107) mmol/L Carbon Dioxide (21-32) mmol/L Anion Gap (3-11) BUN (7-18) mg/dl Creatinine (0.6-1.2) mg/dl Est Cr Clr Drug Dosing ml/min Est GFR ( Amer) Est GFR (Non-Af Amer) BUN/Creatinine Ratio (10-20) Glucose (70-99) mg/dl POC Glucose 215 H 158 H (70-99) mg/dl Estimat Average Glucose 200 mg/dl Hemoglobin A1c 8.6 H (4.5-5.6) % POC Lactic Acid Edmund (0.90-1.70) mmol/L Lactate (0.4-2.0) mmol/L Calcium (8.5-10.1) mg/dl Total Bilirubin (0.2-1) mg/dl AST (15-37) U/L ALT (12-78) U/L Alkaline Phosphatase (45-117) U/L C-Reactive Protein (0-0.29) mg/dl Total Protein (6.4-8.2) gm/dl Albumin (3.4-5.0) gm/dl Globulin (2.5-4.0) gm/dl Albumin/Globulin Ratio (0.9-2) Specimen Hemolysis Hepatitis C Ab Screen (Neg) Influenza Type A (PCR) (Neg) Influenza Type B (PCR) (Neg) Ref Lab Test Result 05/17/19 05/17/19 05/17/19 Range/Units 06:30 06:30 06:30 WBC 9.06 (4.8-10.8) K/uL RBC 4.52 (4.2-5.4) M/uL Hgb 13.2 (12.0-16.0) g/dL Hct 40.6 (37-47) % MCV 89.8 (80-100) fL MCH 29.2 (25-34) pg MCHC 32.5 (32-36) g/dL RDW Std Deviation 45.0 (36.4-46.3) fL RDW Coeff of Iman 13.7 (11.5-14.5) % Plt Count 243 (130-400) K/uL MPV 10.5 H (7.4-10.4) fL Immature Gran % (Auto) 0.8 % Neut % (Auto) 54.4 % Lymph % (Auto) 34.7 % [place] % (Auto) 7.4 % Eos % (Auto) 2.5 % Baso % (Auto) 0.2 % Immature Gran # (Auto) 0.07 H (0.00-0.02) K/uL Neut # (Auto) 4.93 (1.4-6.5) K/uL Lymph # (Auto) 3.14 (1.2-3.4) K/uL [place] # (Auto) 0.67 H (0.11-0.59) K/uL Eos # (Auto) 0.23 (0-0.5) K/uL Baso # (Auto) 0.02 (0-0.2) K/uL ESR 89 H (0-21) mm/hr PT (9.0-12.0) Seconds INR (0.9-1.1) APTT (21.0-31.0) Seconds PTT Ratio Sodium 138 (136-145) mmol/L Potassium 3.9 (3.5-5.1) mmol/L Chloride 104 (98-107) mmol/L Carbon Dioxide 30 (21-32) mmol/L Anion Gap 4.0 (3-11) BUN 20 H (7-18) mg/dl Creatinine 1.17 (0.6-1.2) mg/dl Est Cr Clr Drug Dosing 63.9 ml/min Est GFR ( Amer) 53.2 Est GFR (Non-Af Amer) 45.9 BUN/Creatinine Ratio 17.4 (10-20) Glucose 169 H (70-99) mg/dl POC Glucose (70-99) mg/dl Estimat Average Glucose mg/dl Hemoglobin A1c (4.5-5.6) % POC Lactic Acid Edmund (0.90-1.70) mmol/L Lactate (0.4-2.0) mmol/L Calcium 8.6 (8.5-10.1) mg/dl Total Bilirubin 0.4 (0.2-1) mg/dl AST 11 L (15-37) U/L ALT 17 (12-78) U/L Alkaline Phosphatase 105 (45-117) U/L C-Reactive Protein 7.64 H (0-0.29) mg/dl Total Protein 7.1 (6.4-8.2) gm/dl Albumin 2.6 L (3.4-5.0) gm/dl Globulin 4.5 H (2.5-4.0) gm/dl Albumin/Globulin Ratio 0.6 L (0.9-2) Specimen Hemolysis Hepatitis C Ab Screen (Neg) Influenza Type A (PCR) (Neg) Influenza Type B (PCR) (Neg) Ref Lab Test Result 05/16/19 05/16/19 05/16/19 Range/Units 20:18 19:42 19:40 WBC (4.8-10.8) K/uL RBC (4.2-5.4) M/uL Hgb (12.0-16.0) g/dL Hct (37-47) % MCV (80-100) fL MCH (25-34) pg MCHC (32-36) g/dL RDW Std Deviation (36.4-46.3) fL RDW Coeff of Iman (11.5-14.5) % Plt Count (130-400) K/uL MPV (7.4-10.4) fL Immature Gran % (Auto) % Neut % (Auto) % Lymph % (Auto) % [place] % (Auto) % Eos % (Auto) % Baso % (Auto) % Immature Gran # (Auto) (0.00-0.02) K/uL Neut # (Auto) (1.4-6.5) K/uL Lymph # (Auto) (1.2-3.4) K/uL [place] # (Auto) (0.11-0.59) K/uL Eos # (Auto) (0-0.5) K/uL Baso # (Auto) (0-0.2) K/uL ESR (0-21) mm/hr PT (9.0-12.0) Seconds INR (0.9-1.1) APTT (21.0-31.0) Seconds PTT Ratio Sodium (136-145) mmol/L Potassium (3.5-5.1) mmol/L Chloride (98-107) mmol/L Carbon Dioxide (21-32) mmol/L Anion Gap (3-11) BUN (7-18) mg/dl Creatinine (0.6-1.2) mg/dl Est Cr Clr Drug Dosing ml/min Est GFR ( Amer) Est GFR (Non-Af Amer) BUN/Creatinine Ratio (10-20) Glucose (70-99) mg/dl POC Glucose 199 H (70-99) mg/dl Estimat Average Glucose mg/dl Hemoglobin A1c (4.5-5.6) % POC Lactic Acid Edmund (0.90-1.70) mmol/L Lactate 1.8 (0.4-2.0) mmol/L Calcium (8.5-10.1) mg/dl Total Bilirubin (0.2-1) mg/dl AST (15-37) U/L ALT (12-78) U/L Alkaline Phosphatase (45-117) U/L C-Reactive Protein (0-0.29) mg/dl Total Protein (6.4-8.2) gm/dl Albumin (3.4-5.0) gm/dl Globulin (2.5-4.0) gm/dl Albumin/Globulin Ratio (0.9-2) Specimen Hemolysis Hepatitis C Ab Screen Neg (Neg) Influenza Type A (PCR) (Neg) Influenza Type B (PCR) (Neg) Ref Lab Test Result 05/16/19 05/16/19 05/16/19 Range/Units 15:18 15:00 15:00 WBC (4.8-10.8) K/uL RBC (4.2-5.4) M/uL Hgb (12.0-16.0) g/dL Hct (37-47) % MCV (80-100) fL MCH (25-34) pg MCHC (32-36) g/dL RDW Std Deviation (36.4-46.3) fL RDW Coeff of Iman (11.5-14.5) % Plt Count (130-400) K/uL MPV (7.4-10.4) fL Immature Gran % (Auto) % Neut % (Auto) % Lymph % (Auto) % [place] % (Auto) % Eos % (Auto) % Baso % (Auto) % Immature Gran # (Auto) (0.00-0.02) K/uL Neut # (Auto) (1.4-6.5) K/uL Lymph # (Auto) (1.2-3.4) K/uL [place] # (Auto) (0.11-0.59) K/uL Eos # (Auto) (0-0.5) K/uL Baso # (Auto) (0-0.2) K/uL ESR (0-21) mm/hr PT (9.0-12.0) Seconds INR (0.9-1.1) APTT (21.0-31.0) Seconds PTT Ratio Sodium (136-145) mmol/L Potassium (3.5-5.1) mmol/L Chloride (98-107) mmol/L Carbon Dioxide (21-32) mmol/L Anion Gap (3-11) BUN (7-18) mg/dl Creatinine (0.6-1.2) mg/dl Est Cr Clr Drug Dosing ml/min Est GFR ( Amer) Est GFR (Non-Af Amer) BUN/Creatinine Ratio (10-20) Glucose (70-99) mg/dl POC Glucose (70-99) mg/dl Estimat Average Glucose mg/dl Hemoglobin A1c (4.5-5.6) % POC Lactic Acid Edmund (0.90-1.70) mmol/L Lactate (0.4-2.0) mmol/L Calcium (8.5-10.1) mg/dl Total Bilirubin (0.2-1) mg/dl AST (15-37) U/L ALT (12-78) U/L Alkaline Phosphatase (45-117) U/L C-Reactive Protein (0-0.29) mg/dl Total Protein (6.4-8.2) gm/dl Albumin (3.4-5.0) gm/dl Globulin (2.5-4.0) gm/dl Albumin/Globulin Ratio (0.9-2) Specimen Hemolysis Hepatitis C Ab Screen (Neg) Influenza Type A (PCR) Neg for Influ A (Neg) Influenza Type B (PCR) Neg for Influ B (Neg) Ref Lab Test Result Pending Pending 05/16/19 05/16/19 05/16/19 Range/Units 15:00 14:54 14:45 WBC (4.8-10.8) K/uL RBC (4.2-5.4) M/uL Hgb (12.0-16.0) g/dL Hct (37-47) % MCV (80-100) fL MCH (25-34) pg MCHC (32-36) g/dL RDW Std Deviation (36.4-46.3) fL RDW Coeff of Iman (11.5-14.5) % Plt Count (130-400) K/uL MPV (7.4-10.4) fL Immature Gran % (Auto) % Neut % (Auto) % Lymph % (Auto) % [place] % (Auto) % Eos % (Auto) % Baso % (Auto) % Immature Gran # (Auto) (0.00-0.02) K/uL Neut # (Auto) (1.4-6.5) K/uL Lymph # (Auto) (1.2-3.4) K/uL [place] # (Auto) (0.11-0.59) K/uL Eos # (Auto) (0-0.5) K/uL Baso # (Auto) (0-0.2) K/uL ESR (0-21) mm/hr PT (9.0-12.0) Seconds INR (0.9-1.1) APTT (21.0-31.0) Seconds PTT Ratio Sodium 133 L (136-145) mmol/L Potassium 4.0 (3.5-5.1) mmol/L Chloride 100 (98-107) mmol/L Carbon Dioxide 28 (21-32) mmol/L Anion Gap 5.0 (3-11) BUN 21 H (7-18) mg/dl Creatinine 1.19 (0.6-1.2) mg/dl Est Cr Clr Drug Dosing 62.8 ml/min Est GFR ( Amer) 52.1 Est GFR (Non-Af Amer) 44.9 BUN/Creatinine Ratio 17.7 (10-20) Glucose 226 H (70-99) mg/dl POC Glucose (70-99) mg/dl Estimat Average Glucose mg/dl Hemoglobin A1c (4.5-5.6) % POC Lactic Acid Edmund 2.06 H (0.90-1.70) mmol/L Lactate (0.4-2.0) mmol/L Calcium 8.8 (8.5-10.1) mg/dl Total Bilirubin 0.5 (0.2-1) mg/dl AST 20 (15-37) U/L ALT 21 (12-78) U/L Alkaline Phosphatase 115 (45-117) U/L C-Reactive Protein 8.67 H (0-0.29) mg/dl Total Protein 7.7 (6.4-8.2) gm/dl Albumin 2.8 L (3.4-5.0) gm/dl Globulin 4.9 H (2.5-4.0) gm/dl Albumin/Globulin Ratio 0.6 L (0.9-2) Specimen Hemolysis Hepatitis C Ab Screen (Neg) Influenza Type A (PCR) (Neg) Influenza Type B (PCR) (Neg) Ref Lab Test Result Pending 05/16/19 05/16/19 05/16/19 Range/Units 14:45 14:45 14:45 WBC 13.82 H (4.8-10.8) K/uL RBC 4.61 (4.2-5.4) M/uL Hgb 13.6 (12.0-16.0) g/dL Hct 40.9 (37-47) % MCV 88.7 (80-100) fL MCH 29.5 (25-34) pg MCHC 33.3 (32-36) g/dL RDW Std Deviation 44.6 (36.4-46.3) fL RDW Coeff of Iman 13.7 (11.5-14.5) % Plt Count 263 (130-400) K/uL MPV 10.7 H (7.4-10.4) fL Immature Gran % (Auto) 0.6 % Neut % (Auto) 68.5 % Lymph % (Auto) 22.4 % [place] % (Auto) 6.9 % Eos % (Auto) 1.4 % Baso % (Auto) 0.2 % Immature Gran # (Auto) 0.08 H (0.00-0.02) K/uL Neut # (Auto) 9.46 H (1.4-6.5) K/uL Lymph # (Auto) 3.09 (1.2-3.4) K/uL [place] # (Auto) 0.96 H (0.11-0.59) K/uL Eos # (Auto) 0.20 (0-0.5) K/uL Baso # (Auto) 0.03 (0-0.2) K/uL ESR > 90 H (0-21) mm/hr PT 10.7 (9.0-12.0) Seconds INR 1.0 (0.9-1.1) APTT 25.6 (21.0-31.0) Seconds PTT Ratio 0.9 Sodium (136-145) mmol/L Potassium (3.5-5.1) mmol/L Chloride (98-107) mmol/L Carbon Dioxide (21-32) mmol/L Anion Gap (3-11) BUN (7-18) mg/dl Creatinine (0.6-1.2) mg/dl Est Cr Clr Drug Dosing ml/min Est GFR ( Amer) Est GFR (Non-Af Amer) BUN/Creatinine Ratio (10-20) Glucose (70-99) mg/dl POC Glucose (70-99) mg/dl Estimat Average Glucose mg/dl Hemoglobin A1c (4.5-5.6) % POC Lactic Acid Edmund (0.90-1.70) mmol/L Lactate (0.4-2.0) mmol/L Calcium (8.5-10.1) mg/dl Total Bilirubin (0.2-1) mg/dl AST (15-37) U/L ALT (12-78) U/L Alkaline Phosphatase (45-117) U/L C-Reactive Protein (0-0.29) mg/dl Total Protein (6.4-8.2) gm/dl Albumin (3.4-5.0) gm/dl Globulin (2.5-4.0) gm/dl Albumin/Globulin Ratio (0.9-2) Specimen Hemolysis Hepatitis C Ab Screen (Neg) Influenza Type A (PCR) (Neg) Influenza Type B (PCR) (Neg) Ref Lab Test Result PG Care Time/CCT Total # of Minutes Spent Total Time Spent with Patient: Total time spent is greater than 50% in coordination of care (as documented) at patient's floor/unit and/or counseling patient:
[2019-05-17] MEDS: SOLIFENACIN SUCCINATE PO SCH (14:56)
[2019-05-17] MEDS: cefTRIAXone SODIUM 2,000 MG in DEXTROSE 5% 50 ML IV SCH (15:47)
[2019-05-17] MEDS ORDERED: DAPTOmycin 375 MG in SYRINGE 0 ML IV SCH (16:00)
[2019-05-17] MEDS: CETIRIZINE HCL 10 MG TABLET PO SCH (17:49)
[2019-05-17] MEDS: BACITRACIN/POLYMYX B OPH OINT 3.5 GM TUBE OP SCH (20:43)
[2019-05-17] MEDS: INSULIN GLARGINE SOLOSTAR 100 UNITS/ML 3 ML PEN SQ SCH (20:52)
[2019-05-18 06:11] LABS: Basophils # (auto) 0.02 K/uL (0-0.2); Basophils % (auto) 0.2 %; Eosinophils # (auto) 0.23 K/uL (0-0.5); Eosinophils % (auto) 2.6 %; Hematocrit (blood only) 41.8 % (37-47); Hemoglobin 13.5 g/dL (12.0-16.0); Immature Granulocytes # (auto) 0.08 K/uL (0.00-0.02); Immature Granulocytes % (auto) 0.9 %; Lymphocytes # (auto) 2.78 K/uL (1.2-3.4); Mean Corpuscular Hemoglobin 28.9 pg (25-34); Mean Corpuscular Hgb Conc 32.3 g/dL (32-36); Mean Corpuscular Volume 89.5 fL (80-100); Mean Platelet Volume 10.6 fL (7.4-10.4); Monocytes # (auto) 0.56 K/uL (0.11-0.59); Monocytes % (auto) 6.2 %; Neutrophils % (auto) 59.1 %; Platelet Count 277 K/uL (130-400); RDW Coefficient of Variation 13.7 % (11.5-14.5); RDW Standard Deviation 44.9 fL (36.4-46.3); Red Blood Count 4.67 M/uL (4.2-5.4); White Blood Count 8.97 K/uL (4.8-10.8)
[2019-05-18 06:45] LABS: Albumin Level 2.9 gm/dl (3.4-5.0); BUN Creatinine Ratio 15.7 (10-20); Calcium 9.2 mg/dl (8.5-10.1); Creatinine Clr Calc Pharmacy 57.5 ml/min; Est GFR (African American) 46.8; Est GFR (Non-African American) 40.4
[2019-05-18 06:48] LABS: Albumin Globulin Ratio 0.6 (0.9-2); Bilirubin,Total 0.3 mg/dl (0.2-1); Total Protein 7.9 gm/dl (6.4-8.2)
[2019-05-18] MEDS: FLUTICASONE/VILANTEROL 100/25MCG 14 PUFFS/INHALER INH SCH (08:26)
[2019-05-18] MEDS: VENLAFAXINE HCL XR 75 MG CAPXR PO SCH (08:26)
[2019-05-18] MEDS: CETIRIZINE HCL 10 MG TABLET PO SCH (08:26)
[2019-05-18] MEDS: CYANOCOBALAMIN 500 MCG TABLET (VITAMIN B-12) PO SCH (08:27)
[2019-05-18] MEDS: SOLIFENACIN SUCCINATE PO SCH (08:27)
[2019-05-18] MEDS: PANTOprazole 40 MG TAB PO SCH (08:53)
[2019-05-18] MEDS: HEPARIN SOD 5,000 UNIT/0.5 ML VIAL SQ SCH (08:54)
[2019-05-18] MEDS: INSULIN ASPART 100 UNITS/ML 3 ML PEN SC SCH ×2 (09:01→13:31)
--- NOTE | 2019-05-18 11:04 | Discharge Summary ---
Date of Service May 18, 2019 Admission HPI Per Admitting Provider 74 year old white female with PMH significant for DM (on Insulin) with chronic neuropathy, HTN, COPD and chronic respiratory failure with hypoxia (2L HS), GERD, urinary incontinence and depression presented to emergency department with 3 days of itching and redness of her left eye. She states for the past two days it has been crusted shut and she has noticed "clear/sticky" discharge that she has been blotting. She states she does not know of any trauma or scratch/bite to the area. She states she is able to see out of her eye and pain is not worsened with movement, describes it as more of a discomfort than pain. She states occasionally it will be cloudy but she is still able to see. Per chart, patient with history of temporal arteritis, however patient denies ever having this and is not on any kind of chronic steroid therapy. 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 She also has concerns regarding a persistent rash beneath her belly, worse on the left side that the right, which has been there for over two and a half weeks. She states she had been given a topical salve and what she believes was similar to nystatin to apply to the area and finished a course of "fluconazole" from her Urologist, which she follows with for incontinence and was just seen last in [place] for possible Botox injections, but she has had no improvement. She states it is itchy. She does have a history of urinary incontinence at night and sleeps solely on her left side. She believes when she is incontinent at night the urine pulls in that area, and has been wearing a liner for weeks. She states she thinks she might have had strep throat over a week ago but did not seek treatment. Had considered the possibility of seasonal allergies. ER Course: Treated with Dapto and Rocephin. Multiple bacterial and fungal cultures collected. Lactate 2.06. Glucose 226. CRP 8.67. Cr wnl. CT facial bones with evidence of mild left periorbital cellulitis. Discussion with pharmacy with consideration of Caspofungin if no improvement. Admission Exam Per Admitting Provider Constitutional: WD/WN, vitals as above + obese; no acute distress Eyes: + conjunctival abnormality (injection), PERRL and EOM intact bilaterally (without pain) dried crusting of eyelids, clear drainage ENMT: cobblestone appearance of posterior oropharynx dentures present several lesions to lips with crusting. without vesicles. non tender Neck: trachea midline, no thyromegaly Respiratory: normal respiratory effort, lungs clear to auscultation Cardiovascular: RRR, no murmur, no edema Gastrointestinal (Abdomen): normal bowel sounds, soft, nontender, no hepatosplenomegaly Musculoskeletal: no cyanosis or clubbing, extremities motor strength 5/5 Skin: erythematous rash below abdominal pannus, worse on left side with satellite lesions. Clear drainage. small erythema and rash under left breast, approx 2inches in diameter Neurologic: PERRL, EOMI, accommodation nl, no face palsy, no dysarthria Psychiatric: A+Ox3, euthymic affect Lymphatic: left sided anterior chain adenopathy Principal Diagnosis Left Periorbital Cellulitis, Conjunctivitis Discharge Exam Constitutional WD/WN, vitals as above + obese; no acute distress Eyes + conjunctival abnormality (injection), PERRL and EOM intact bilaterally (without pain) Neck trachea midline, no thyromegaly Respiratory normal respiratory effort, lungs clear to auscultation Cardiovascular RRR, no murmur, no edema Gastrointestinal (Abdomen) normal bowel sounds, soft, nontender, no hepatosplenomegaly Musculoskeletal no cyanosis or clubbing, extremities motor strength 5/5 Skin decreased erythema under left breast skin beneath abdominal pannus still erythematous, but decreased from previous examination. Worse on leftmost side, minimal clear seepage healing lesions to lip, without vesicles, nontender Neurologic patellar DTR's 2+ bilat, sensation intact Psychiatric A+Ox3, euthymic affect Lymphatic no cervical or axillary lymphadenopathy Discharge Data Allergies Allergy/AdvReac Type Severity Reaction Status Date / Time chocolate flavor Allergy Intermediate Headache Verified 05/16/19 15:53 erythromycin base Allergy Intermediate CONFUSION, Verified 05/16/19 15:53 HEADACHE nitrofurantoin Allergy Intermediate 15 Verified 05/16/19 15:53 different symptoms Consultations 05/16/19 15:49 ED Decision to Admit Stat 05/16/19 20:24 Consult Case Management - Discharge Planning Routine Ordered Studies 05/16/19 14:26 CT facial bones w con Stat Hospital Course (1) Periorbital cellulitis of left eye: * likely secondary to drainage from conjunctivitis with resultant irritation of skin on face * CT without evidence of spread beyond orbit. No evidence of sepsis, but with leukocytosis (resolved), elevated ESR >90 secondary to cellulitis. CRP improve d on repeat. * Warm compress. Blood cultures negative. * Cultures of abdominal pannus as well as eye with group B beta strep and group A beta strep respectively * Warm compress TID to left eye. * Ceftriaxone IV x 2 days with transition to Amoxicillin 1,000mg PO BID to complete ten day course. Zyrtec for itchiness. (2) Conjunctivitis: * Left eye, with copious purulent drainage on admission. Minimal drainage on day of discharge. * Originally treated with ocuflox but then transitioned to polymyxin given strep on cx (3) Candidal intertrigo: * Improving prior to discharge. Rash of left groin and underneath pannus of abdomen, left breast. Had nystatin topical prior to admission without improvement. Initiated miconazole powder. Continued at discharge * Home health set up through [id number] to assist patient at discharge, given living situation and inability of patient to see beneath abdominal pannus. Keep clean, dry. (4) Urinary incontinence: * At night. Likely contributing to persistent rash below abdominal pannus. * Follows with Urology in [place]. Recent discussion regarding Botox injections. * Per patient, recently prescribed but had not started solifenacin 10mg. Initiated and continued. (5) Diabetes: * With chronic neuropathy. Last A1c 9.4 in September 2018. Repeat with improvement to 8.6. * Home medications held. ISS while inpatient . Resumed home medications at discharge. Follow up with PCP, repeat in 3 months (6) COPD (chronic obstructive pulmonary disease): * Chronic. Stable. No s/sx of exacerbation. On 2L O2 at night, but per patient, not very compliant. Less than 1-2x/week. Record of patient with hx of ANJALI but refusing CPAP -- per patient, she had a sleep study and was told she DID NOT have ANJALI -- she stated she would probably tolerate a mask better than NC due to it drying her out. O2 ordered 2L at night via NC. Continued home atrovent. * Per office note, patient with mild ANJALI -- Dr. Obando (PCP) to readdress at follow up regarding obtaining a CPAP, as patient with increased daytime somnolence over the past year. Discussed with patient. Agreed to readdress. (7) Chronic respiratory failure with hypoxia, on home O2 therapy: * As above -- non-compliant. (8) Chronic kidney disease, stage III (moderate): * Baseline Cr 1.08-1.2, GFR 40-50s. Slightly elevated at 1.3. Held home losartan, hctz. Resumed at discharge. (9) Essential hypertension: * Chronic. Stable. 135/82 * Continued home meds at discharge (10) Cellulitis of skin of lip: * Improving. No evidence of vesicles concerning for herpes. Could be secondary also to Strep infection (11) Venous stasis: * Chronic. Stable (12) Depression: * Chronic. Stable. * Continued lorazepam prn * Of note, patient to have venlafaxine increased from 150mg to 225mg daily as outpatient but she stated she was never given a new prescription. Confirmed with outpatient note. Given and continued venlafaxine 225mg. (13) Anxiety: * As above. Continue lorazepam as above (14) GERD (gastroesophageal reflux disease): * Chronic. Stable. * Continued Protonix (15) DVT prophylaxis: * SCDs, Heparin SQ while inpatient Discharged home with son. Medications delivered from meds to beds program. Total Time Total Time Spent Total Time Spent (In Minutes): 65 Discharge Plan Discharge Items Patient Disposition: Home - Home Health Services Reason For Visit: LEFT PERIORBITAL CELLULITIS Discharge Diagnosis: Periorbital Cellulitis of Left Eye Condition on Discharge: Good Goals: You have been hospitalized for an acute medical problem. During your stay at [facility], we have made an effort to correct the problem that brought you to the hospital while keeping you as comfortable as possible. Medications were used to bring your condition under control and your discharge instructions will include directions for any medications you should take after leaving the hospital. Please make sure you see your Primary Care Provider as part of your follow up plan. Activity: Resume your previous activity Non-emergency contact: Primary Care Provider Call non-emergency contact if: you have any medication questions, your symptoms worsen and you have a fever Follow-up/Referrals: Ty Obando MD [Primary Care Provider] - Diet: Carb Consistent or DM2 and Heart Healthy Addtl Attending Provider Instructions: You have been hospitalized for a bacterial infection, cellulitis, around your eye. Cultures were taking and it was determined that you have strep. For this reason, you were treated with IV antibiotics and a prescription has been provided for Amoxicillin 1,000mg by mouth TWICE daily for the next 8 days, to complete a ten day course. You have been provided a prescription for zyrtec to help with itchiness. You have also been provided prescription for miconazole (Desenex) topical powder to apply to your rash beneath your belly and breasts. Please apply twice a day, and keep the area dry. You have been sent a prescription for your increased venlafaxine (Effexor) that was to be sent as an outpatient. You have been receiving the increased dose of 225mg as you were to be taking as an outpatient. You should follow up with your primary care doctor, Dr. Obando, in the next week for follow up. You should also mention that you are interested in pursuing a CPAP to help with Sleep Apnea, as discussed. [facility] has been set up for home health by our case management department. Please keep all follow up appointments. Please return to the emergency room for any worsening redness, drainage, fever, or decreased vision or pain with eye movement. Or for any other symptoms that are concerning for you. It has been a pleasure being apart of the medical team providing for you during this hospital stay. Take care! Pending Studies at Discharge: No Stand-Alone Forms: My [facility], Smoking Cessation Medications and DC Order Prescriptions: New Desenex 2 % powder 1 applic TOP BID Qty: 85 RF: 0 bacitracin-polymyxin B 500-10,000 unit/gram ointment 1 inch OP Q6H PRN (Reason: bacterial conjunctivitis) 8 Days Qty: 3.5 RF: 0 cetirizine [Zyrtec] 10 mg tablet 5 mg PO DAILY PRN (Reason: itching) Qty: 10 RF: 0 amoxicillin 500 mg capsule 1,000 mg PO BID 8 Days Qty: 32 RF: 0 venlafaxine 75 mg Capsule,Extended Release 24hr 225 mg PO QAM 30 Days Qty: 90 RF: 0 solifenacin [Vesicare] 10 mg Tablet 10 mg PO DAILY Qty: 10 RF: 0 Continued sitagliptin [Januvia] 100 mg tablet See Rx Instructions .ROUTE .COMPLEX Qty: 30 RF: 5 insulin glargine [Lantus Solostar U-100 Insulin] 100 unit/mL (3 mL) insulin pen See Rx Instructions .ROUTE .COMPLEX Qty: 9 RF: 11 (DME) insulin syringe-needle U-100 [BD Insulin Syringe Ultra-Fine] 0.3 mL 31 gauge x 5/16" syringe See Dose Instructions .ROUTE .MEDSUPPLY Qty: 10 RF: 0 (DME) lancets [OneTouch Delica Lancets] 30 gauge misc See Dose Instructions .ROUTE .MEDSUPPLY Qty: 25 RF: 0 (DME) OneTouch Ultra Blue Test Strip strip See Dose Instructions .ROUTE .MEDSUPPLY Qty: 10 RF: 0 glimepiride 2 mg Tablet 2 mg PO TID RF: 0 fluticasone propion-salmeterol [Advair Diskus] 250-50 mcg/dose Blister With Device 1 inh INHALATION BID RF: 0 cyanocobalamin (vitamin B-12) 1,000 mcg Tablet 1,000 mcg PO DAILY RF: 0 lorazepam 0.5 mg Tablet 0.5 mg PO BID PRN (Reason: Anxiety) RF: 0 Atrovent HFA 17 mcg/actuation HFA aerosol inhaler 1 inha INH TID PRN (Reason: Shortness Of Breath) RF: 0 hydrochlorothiazide 25 mg tablet 25 mg PO QAM RF: 0 losartan 100 mg tablet 100 mg PO QAM RF: 0 omeprazole 20 mg capsule,delayed release(DR/EC) 20 mg PO QAM RF: 0 Trulicity 0.75 mg/0.5 mL pen injector 0.75 mg SQ WE RF: 0 Discontinued fluconazole 100 mg tablet 100 mg PO QAM RF: 0 venlafaxine 150 mg capsule,extended release 24hr 150 mg PO QAM RF: 0 Discharge Orders: Discharge Order (Routine); Ordered 05/18/19 Ordered By: Saritha Sheth/Other Patient Handouts: Diabetes Industry Analyst Complications, Diabetes Resources, Diabetes Healthy Meals, Diabetes Learn Serve Portion Size, Diabetes Meal Planning Admission Data Admit Date/Time: 05/16/19 17:28 Attending Provider: Saritha Hook Admit Provider: Saritha Hook Primary Care Provider: Ty Obando Other Providers: Peng Ingram Other Interventions: Discharge Summary Assessment (RN) Last Done: 05/18/19 12:51
[2019-05-18] MEDS: MICONAZOLE NITRATE POWDER 43 GM EXT SCH (11:32)
[2019-05-18] MEDS: BACITRACIN/POLYMYX B OPH OINT 3.5 GM TUBE OP SCH (11:32)
[2019-05-18] MEDS: cefTRIAXone SODIUM 2,000 MG in DEXTROSE 5% 50 ML IV SCH (15:36)
== END 2019-05-18 18:31 | disposition home health service (06) | DRG 603 ==
LOC: ED 12:52 → 3N 17:28

== ENCOUNTER 2021-02-24 12:32 | Inpatient (IN) ==
[2021-02-24] MEDS ORDERED: ALBUTEROL 0.083% NEBU SOLN 3 ML VIAL INH STA (12:56)
--- NOTE | 2021-02-24 13:00 | Emergency Department Note ---
History of Present Illness General Chief complaint: Shortness of Breath/Dyspnea Stated complaint: short of breath Time Seen by Provider: 02/24/21 12:48 Source: patient History of Present Illness Provider complaint: Short of breath Onset (ago): day(s) Location: chest Severity: moderate Pain Consistency: + constant Quality: + other (Short of breath) Relieved By: + other (Oxygen) Associated symptoms: + cough, + headaches, + malaise and + shortness of breath; no chest pain, no fever/chills or no nausea/vomiting This is a 75-year-old female with a history of COPD presenting with shortness of breath and cough for the past 2 days. The patient states that she is vaccinated for COVID-19. She had lunch with her aunt on Tuesday who then tested positive for COVID-19 the next day. The patient developed symptoms 2 days after her lunch with her aunt. She complains of a nonproductive cough. She has been short of breath as well. She does use oxygen at night only and does feel better with oxygen. She has not been using it during the day. She denies any associated chest discomfort or pain. She has had no fever, loss of taste or smell or diarrhea. She denies any vomiting or abdominal pain. She does have chronic leg swelling without any pain in her legs. Home Medications Medication Instructions Recorded Confirmed Type lancets 30 gauge (Zhen Zuniga #25 ea 11/24/18 12/25/20 History Lancets) ipratropium bromide 17 1 puffs INH TID PRN #12.9 gm 07/04/19 02/24/21 Rx mcg/actuation HFA aerosol inhaler (Atrovent HFA) atorvastatin 10 mg tablet 10 mg PO 3XWK #36 tab 09/17/20 02/24/21 Rx glimepiride 2 mg tablet 2 mg PO QAM 10/07/20 02/24/21 History miconazole nitrate 2 % topical 1 applic TOP BID PRN 10/07/20 02/24/21 History powder (Desenex) triamcinolone acetonide 0.1 % 1 appln TOP BID PRN 10/07/20 02/24/21 History topical ointment turmeric 400 mg capsule 400 mg PO DAILY 10/07/20 02/24/21 History venlafaxine 75 mg capsule,extended 225 mg PO QAM 10/07/20 02/24/21 History release 24 hr blood sugar diagnostic 1 strip MISCELLANEOUS .COMPLEX 11/19/20 12/25/20 Rx #150 strip insulin glargine 100 unit/mL (3 30 unit SUBCUT QAM #15 ml 12/19/20 02/24/21 Rx mL) subcutaneous pen (Lantus Solostar U-100 Insulin) omeprazole 20 mg capsule,delayed 20 mg PO QAM #90 cap 01/14/21 02/24/21 Rx release dulaglutide 1.5 mg/0.5 mL See Rx Instructions .ROUTE 01/20/21 02/24/21 Rx subcutaneous pen injector .COMPLEX #2 ml (Trulicity) cetirizine 10 mg tablet (Zyrtec) 5 mg PO QAM PRN 02/24/21 02/24/21 History doxycycline hyclate 100 mg capsule 200 mg PO QAM 02/24/21 02/24/21 History fluticasone fur. 200 mcg-umeclid 1 inh INHALATION QAM 02/24/21 02/24/21 History 62.5 mcg-vilant 25 mcg inhalat.powder (Trelegy Ellipta) hydrochlorothiazide 25 mg tablet 25 mg PO QAM 02/24/21 02/24/21 History oxybutynin chloride 10 mg 10 mg PO HS 02/24/21 02/24/21 History tablet,extended release 24 hr Allergies Allergy/AdvReac Type Severity Reaction Status Date / Time chocolate flavor Allergy Intermediate Headache Verified 02/24/21 13:49 erythromycin base Allergy Intermediate CONFUSION, Verified 02/24/21 13:49 HEADACHE nitrofurantoin Allergy Intermediate 15 Verified 02/24/21 13:49 different symptoms Past Med/Surg History Medical History (Updated 02/24/21 @ 17:40 by Benedicto Lara MD) Candidal intertrigo Cheilitis Chronic respiratory failure with hypoxia, on home O2 therapy History of renal stent Nephrolithiasis Pacemaker Panniculitis Proctitis Pyelonephritis Rectal abscess Renal colic Syncope and collapse (06/03/13) 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) Vertigo Surgical History History of appendectomy History of biopsy of temporal artery History of colonoscopy (~06/2010) History of dilation and curettage History of neurologic surgery rhizotomy History of total abdominal hysterectomy S/P cholecystectomy S/P knee replacement Family History Family/Other Hypertension Diabetes Cancer Adopted Heart disease Grandmother Diabetes Heart disease Grandfather Heart disease Aunt Cancer Uncle Cancer Other No pertinent family history in first degree relatives Social History Smoking Status: Never smoker Hx Alcohol Use: No Hx Substance Use: No Preferred Language: Sami Communication Ability: Effective Frame Expander Required: No Beliefs That Will Affect Care: None marital status: Single Current Living Situation: Alone Feels Safe at Home: Yes Assistive Devices: Cane Review of Systems See HPI for pertinent positives & negatives. and A total of 10 systems reviewed and were otherwise negative Physical Exam Vital Signs Vital Signs - 24 hr 02/24/21 12:47 02/24/21 13:14 02/24/21 13:45 Temperature 37.0 C Temperature Source Oral Pulse Rate 86 Pulse Rate [Right Finger] 81 89 Respiratory Rate 22 20 Respiratory Effort / Characteristics Spontaneous Blood Pressure 180/96 H Blood Pressure Mean 124 Pulse Oximetry 100 100 Oxygen Delivery Method Nasal Cannula Nasal Cannula Oxygen Flow Rate 2 2 Sepsis Recent Fever Within 48 Hours No Sepsis New/Unexplained Change in Mental Status No Sepsis Action Taken by Nursing No Action Required 02/24/21 14:16 Temperature Temperature Source Pulse Rate Pulse Rate [Right Finger] 80 Respiratory Rate 18 Respiratory Effort / Characteristics Blood Pressure Blood Pressure Mean Pulse Oximetry 98 Oxygen Delivery Method Nasal Cannula Oxygen Flow Rate 2 Sepsis Recent Fever Within 48 Hours Sepsis New/Unexplained Change in Mental Status Sepsis Action Taken by Nursing Constitutional: Vital signs reviewed. Intermittent coughing. Eyes: Pupils are equal round reactive to light. Conjunctiva are noninjected. ENT: Pharynx is clear without erythema or exudate. Mucous membranes are dry. Neck supple without meningeal signs. Respiratory: Scattered wheezing bilaterally. Breath sounds are equal bilaterally. Cardiovascular: Regular rate and rhythm. No rubs or gallops. GI: Soft, nondistended and nontender. Bowel sounds are present. Musculoskeletal: Bilateral nonpitting edema to the lower extremities. Venous stasis discoloration bilaterally. Integumentary: No cyanosis. or jaundice. Neurological: The patient is awake and alert. No focal deficits. Psychiatric: Normal affect. Not anxious appearing. Course Administered Medications Remdesivir 200 mg/ Sodium (Chloride) 250 mls @ 125 mls/hr IV ONE STA; Protocol Stop: 02/24/21 17:46 Last Admin: 02/24/21 16:28 Dose: 125 mls/hr Documented by: [id number] Discontinued Medications Albuterol (Albuterol 0.083% Nebu Soln 3 Ml Vial) 2.5 mg INH NOW STA Stop: 02/24/21 12:57 Last Admin: 02/24/21 13:14 Dose: 2.5 mg Documented by: [id number] Dexamethasone Sodium Phosphate (DexamethasonePf 10 Mg/Ml Vial) 6 mg IV NOW ONE Stop: 02/24/21 15:03 Last Admin: 02/24/21 15:32 Dose: 6 mg Documented by: [id number] Medical Decision Making Differential Diagnosis COVID-19, pneumonia, bronchitis, anemia, dehydration, metabolic derangement Medical Records Attestation: I reviewed the patient's medical records. I did perform a limited focused review of portions of the patient's old chart on the electronic medical record. The patient was seen here for weakness and dehydration in September. She was treated with IV fluids and discharged home. Home Medications Current Medication List: was personally reviewed by me Laboratory Data Attestation: I reviewed the patient's lab results. Result diagrams: 02/24/21 13:25 02/24/21 13:25 Lab Results 02/24/21 02/24/21 02/24/21 Range/Units 12:43 12:43 13:25 WBC 7.25 (4.8-10.8) K/uL RBC 4.81 (4.2-5.4) M/uL Hgb 14.1 (12.0-16.0) g/dL Hct 41.9 (37-47) % MCV 87.1 (80-100) fL MCH 29.3 (25-34) pg MCHC 33.7 (32-36) g/dL RDW Std Deviation 42.3 (36.4-46.3) fL RDW Coeff of Iman 13.3 (11.5-14.5) % Plt Count 209 (130-400) K/uL MPV 10.1 (7.4-10.4) fL Immature Gran % (Auto) 0.3 % Neut % (Auto) 71.8 % Lymph % (Auto) 17.2 % [place] % (Auto) 9.4 % Eos % (Auto) 1.2 % Baso % (Auto) 0.1 % Neut # (Auto) 5.20 (1.4-6.5) K/uL Lymph # (Auto) 1.25 (1.2-3.4) K/uL [place] # (Auto) 0.68 H (0.11-0.59) K/uL Eos # (Auto) 0.09 (0-0.5) K/uL Baso # (Auto) 0.01 (0-0.2) K/uL Immature Gran # (Auto) 0.02 (0.00-0.02) K/uL Sodium (136-145) mmol/L Potassium (3.5-5.1) mmol/L Chloride (98-107) mmol/L Carbon Dioxide (21-32) mmol/L Anion Gap (3-11) BUN (7-18) mg/dl Creatinine (0.6-1.2) mg/dl Est Cr Clr Drug Dosing ml/min Est GFR ( Amer) ml/min Est GFR (Non-Af Amer) ml/min BUN/Creatinine Ratio (10-20) Glucose (70-99) mg/dl Calcium (8.5-10.1) mg/dl Total Bilirubin (0.2-1) mg/dl AST (15-37) U/L ALT (12-78) U/L Alkaline Phosphatase (45-117) U/L Troponin I (0-0.045) ng/ml Total Protein (6.4-8.2) gm/dl Albumin (3.4-5.0) gm/dl Globulin (2.5-4.0) gm/dl Albumin/Globulin Ratio (0.9-2) COVID-19 Eval Order Covid19 at [facility] SARS-CoV-2 (PCR) POSITIVE A* (Negative) 02/24/21 Range/Units 13:25 WBC (4.8-10.8) K/uL RBC (4.2-5.4) M/uL Hgb (12.0-16.0) g/dL Hct (37-47) % MCV (80-100) fL MCH (25-34) pg MCHC (32-36) g/dL RDW Std Deviation (36.4-46.3) fL RDW Coeff of Iman (11.5-14.5) % Plt Count (130-400) K/uL MPV (7.4-10.4) fL Immature Gran % (Auto) % Neut % (Auto) % Lymph % (Auto) % [place] % (Auto) % Eos % (Auto) % Baso % (Auto) % Neut # (Auto) (1.4-6.5) K/uL Lymph # (Auto) (1.2-3.4) K/uL [place] # (Auto) (0.11-0.59) K/uL Eos # (Auto) (0-0.5) K/uL Baso # (Auto) (0-0.2) K/uL Immature Gran # (Auto) (0.00-0.02) K/uL Sodium 135 L (136-145) mmol/L Potassium 3.8 (3.5-5.1) mmol/L Chloride 101 (98-107) mmol/L Carbon Dioxide 26 (21-32) mmol/L Anion Gap 8.0 (3-11) BUN 17 (7-18) mg/dl Creatinine 1.18 (0.6-1.2) mg/dl Est Cr Clr Drug Dosing 58.9 ml/min Est GFR ( Amer) 52.2 ml/min Est GFR (Non-Af Amer) 45.1 ml/min BUN/Creatinine Ratio 14.1 (10-20) Glucose 172 H (70-99) mg/dl Calcium 9.3 (8.5-10.1) mg/dl Total Bilirubin 0.3 (0.2-1) mg/dl AST 15 (15-37) U/L ALT 16 (12-78) U/L Alkaline Phosphatase 128 H (45-117) U/L Troponin I < 0.015 (0-0.045) ng/ml Total Protein 8.2 (6.4-8.2) gm/dl Albumin 3.2 L (3.4-5.0) gm/dl Globulin 5.0 H (2.5-4.0) gm/dl Albumin/Globulin Ratio 0.6 L (0.9-2) COVID-19 Eval Order SARS-CoV-2 (PCR) (Negative) Imaging Data Radiologist's Impression: Chest X-Ray 02/24/21 12:56 XR chest 1V portable CLINICAL HISTORY: Dyspnea TECHNIQUE: Single frontal radiograph of the chest was obtained. Comparison: Comparison is made to chest one view 10/13/2020 FINDINGS: Dual lead pacemaker is unchanged. Cardiomegaly is noted. Calcified aortic knob is seen. There is suggestion of a left retrocardiac opacity. Scattered calcified granulomata are seen. No evidence of pleural effusion or pneumothorax. IMPRESSION: Possible left retrocardiac airspace opacity which may represent atelectasis, pneumonia, and/or aspiration. ACT 112: Negative or not required by law. Electronically signed by: Isaac Early M.D. 02/24/2021 2:02 PM ECG Data Attestation: I personally reviewed and interpreted this ECG as follows: Indication: + SOB/dyspnea Rate (beats per minute): 86 Rhythm: + other (Paced rhythm) ECG Intervals/blocks: + Normal QT ECG Findings: no PVCs Comparison ECG Date: from (January 23, 2021) Change: no significant change MDM Narrative I did evaluate the patient as noted above. She has brought in by ambulance for shortness of breath and Covid symptoms. She had an O2 saturation of 89-90 on room air per EMS and so she was placed on supplemental oxygen. She is on 2 L of oxygen via nasal cannula here and her O2 saturation is 97%. She was placed in respiratory isolation. A COVID-19 test was obtained and was positive. IV access was established. I did place an order for continuous cardiac monitoring. The monitor showed a paced rhythm at a rate of 86 bpm. I did order and pers onally review the patient's 12-lead EKG as described above. She has a paced rhythm. I did order and personally reviewed the images of the patient's chest x-ray as described above. She has a left-sided pneumonia. I did order and review the patient's blood work as noted in the electronic medical record. CBC is unremarkable without leukocytosis or anemia. Electrolytes and LFTs demonstrate a sodium of 135 but are otherwise unremarkable. Troponin is negative. I did treat the patient with a DuoNeb. She was also given Decadron 6 mg IV. I did reassess the patient. She is feeling slightly better. I did discuss the test results with the patient. I did recommend hospitalization for further care and evaluation. I did discuss case with the hospitalist and bar manager. Impression & Plan Pneumonia due to 2019 novel coronavirus, Acute exacerbation of chronic obstructive pulmonary disease Discharge Plan Visit Data Chief Complaint: Shortness of Breath/Dyspnea Stated Complaint: short of breath ED Provider: Benedicto Lara Discharge Problem: Pneumonia due to 2019 novel coronavirus, Acute exacerbation of chronic obstructive pulmonary disease Patient Disposition: Being Evaluated by Hospitalist Forms Stand Alone Forms: My [facility] Prescriptions Prescriptions: No Action atorvastatin 10 mg tablet 10 mg PO 3XWK Qty: 36 RF: 3 blood sugar diagnostic Strip 1 strip miscellaneous .COMPLEX Qty: 150 RF: 11 Lantus Solostar U-100 Insulin 100 unit/mL (3 mL) insulin pen 30 unit subcut QAM Qty: 15 RF: 11 omeprazole 20 mg capsule,delayed release(DR/EC) 20 mg PO QAM Qty: 90 RF: 3 Trulicity 1.5 mg/0.5 mL pen injector See Rx Instructions .ROUTE .COMPLEX Qty: 2 RF: 5 Atrovent HFA 17 mcg/actuation HFA aerosol inhaler 1 puffs INH TID PRN (Reason: Shortness Of Breath) Qty: 12.9 RF: 11 (DME) lancets [OneTouch Delica Lancets] 30 gauge misc See Dose Instructions .ROUTE .MEDSUPPLY Qty: 25 RF: 0 venlafaxine 75 mg capsule,extended release 24hr 225 mg PO QAM RF: 0 Desenex 2 % powder 1 applic TOP BID PRN (Reason: NEEDED) RF: 0 glimepiride 2 mg tablet 2 mg PO QAM RF: 0 triamcinolone acetonide 0.1 % ointment 1 appln TOP BID PRN (Reason: Skin Irritation) RF: 0 turmeric 400 mg Capsule 400 mg PO DAILY RF: 0 doxycycline hyclate 100 mg capsule 200 mg PO QAM RF: 0 oxybutynin chloride 10 mg tablet extended release 24hr 10 mg PO HS RF: 0 cetirizine [Zyrtec] 10 mg tablet 5 mg PO QAM PRN (Reason: itching) RF: 0 hydrochlorothiazide 25 mg tablet 25 mg PO QAM RF: 0 Trelegy Ellipta 200-62.5-25 mcg blister with device 1 inh inhalation QAM RF: 0 Referrals Referrals: Ty Obando MD [Primary Care Provider] -
[2021-02-24 13:39] LABS: Basophils # (auto) 0.01 K/uL (0-0.2); Basophils % (auto) 0.1 %; Eosinophils # (auto) 0.09 K/uL (0-0.5); Eosinophils % (auto) 1.2 %; Hematocrit (blood only) 41.9 % (37-47); Hemoglobin 14.1 g/dL (12.0-16.0); Immature Granulocytes # (auto) 0.02 K/uL (0.00-0.02); Immature Granulocytes % (auto) 0.3 %; Lymphocytes # (auto) 1.25 K/uL (1.2-3.4); Lymphocytes % (auto) 17.2 %; Mean Corpuscular Hemoglobin 29.3 pg (25-34); Mean Corpuscular Hgb Conc 33.7 g/dL (32-36); Mean Corpuscular Volume 87.1 fL (80-100); Mean Platelet Volume 10.1 fL (7.4-10.4); Monocytes # (auto) 0.68 K/uL (0.11-0.59); Monocytes % (auto) 9.4 %; Neutrophils % (auto) 71.8 %; Platelet Count 209 K/uL (130-400); RDW Coefficient of Variation 13.3 % (11.5-14.5); RDW Standard Deviation 42.3 fL (36.4-46.3); Red Blood Count 4.81 M/uL (4.2-5.4); White Blood Count 7.25 K/uL (4.8-10.8)
[2021-02-24 13:55] LABS: Alanine Aminotransferase 16 U/L (12-78); Albumin Level 3.2 gm/dl (3.4-5.0); Aspartate Aminotransferase 15 U/L (15-37); BUN Creatinine Ratio 14.1 (10-20); Blood Urea Nitrogen 17 mg/dl (7-18); Calcium 9.3 mg/dl (8.5-10.1); Carbon Dioxide 26 mmol/L (21-32); Chloride 101 mmol/L (98-107); Creatinine Clr Calc Pharmacy 58.9 ml/min; Est GFR (African American) 52.2 ml/min; Est GFR (Non-African American) 45.1 ml/min; Glucose 172 mg/dl (70-99); Potassium 3.8 mmol/L (3.5-5.1); Sodium 135 mmol/L (136-145)
[2021-02-24 14:00] LABS: Albumin Globulin Ratio 0.6 (0.9-2); Alkaline Phosphatase 128 U/L (45-117); Bilirubin,Total 0.3 mg/dl (0.2-1); Total Protein 8.2 gm/dl (6.4-8.2); Troponin I < 0.015 ng/ml (0-0.045)
--- NOTE | 2021-02-24 14:03 | XRay Report ---
XR chest 1V portable CLINICAL HISTORY: Dyspnea TECHNIQUE: Single frontal radiograph of the chest was obtained. Comparison: Comparison is made to chest one view 10/13/2020 FINDINGS: Dual lead pacemaker is unchanged. Cardiomegaly is noted. Calcified aortic knob is seen. There is sugg estion of a left retrocardiac opacity. Scattered calcified granulomata are seen. No evidence of pleur al effusion or pneumothorax. IMPRESSION: Possible left retrocardiac airspace opacity which may represent atelectasis, pneumonia, and/or aspira tion. ACT 112: Negative or not required by law. Electronically signed by: Isaac Early M.D. 02/24/2021 2:02 PM
[2021-02-24] MEDS ORDERED: dexAMETHasone**PF** 10 MG/ML VIAL IV ONE (15:02)
--- NOTE | 2021-02-24 15:10 | History & Physical Report ---
Date of Service February 24, 2021 Assessment & Plan (1) COVID-19: Plan: Shortness of Breath 2/2 COVID19 - CXR: Possible left retrocardiac airspace opacity which may represent atelectasis, pneumonia, and/or aspiration. - Hypoxic to 89-90% with increased daytime oxygen requirements - No leukocytosis - Cr normal - Troponin negative - EKG: Ventricular-paced rhythm - COVID positive Continue Decadron 6 mg daily x10-day course Patient on day 3 of illness. Meets remdesivir criteria. GFR approximately 60, creatinine 1.13, no transaminitis Remdesivir ordered Covid DVT prophylaxis, Lovenox (2) Diabetes: Plan: T2DM Hold home antiglycemic's Patient on glargine 30 units every morning at home Continue glargine 30 units every morning, plus SSI as below SSI correction factor 30, carb ratio 11 Goal BSG [id number] Continue atorvastatin 10 mg 3 times weekly (3) Chronic kidney disease, stage III (moderate): Plan: CKD3 - Cr normal, at baseline BMP daily (4) COPD (chronic obstructive pulmonary disease): Plan: COPD - Continue Trelegy formulary equivalent - Duonebs PRN Q4H -Flutter valve, incentive spirometry On doxycycline for lip infection as noted below, no additional antibiotics indicated at this time (5) GERD (gastroesophageal reflux disease): Plan: GERD Convert omeprazole 20 mg p.o. every morning to Protonix 20 mg p.o. every morning (6) HTN (hypertension): Plan: HTN Continue home hydrochlorothiazide 25 mg p.o. every morning ECHO 2020: EF 50-55%. (7) Depression: Plan: Dep w/ Anxiety Continue venlafaxine to 25 mg p.o. every morning (8) Anxiety: Plan: See Above (9) Urinary incontinence: Plan: Continue oxybutynin (10) Infection of lip: Plan: Patient with superficial infection of a canker sore on her lip, improving. Has had about 5 days of a total 5-day course Doxycycline 200 mg daily converted to 100 mg twice daily, continue for additional 5 days Clinically improved on exam Plan: DVT PPx: Lovenox Diet: DM Disposition: Med/Tele CODE STATUS: Full CODe History of Present Illness Chief Complaint: Shortness of breath Primary Care Provider: Ty Obando MD Sonya is a 75-year-old female with a past medical history of diabetes, hypertension, anxiety/depression, hyperlipidemia, GERD, obesity with BMI 46.3, CKD 3, chronic venous stasis/peripheral venous insufficiency, and pacemaker placement who presents with shortness of breath 2 days after having lunch with a family member who was Covid positive and who is Covid positive on admission. 2 days of nonproductive cough + shortness of breath. +headache. No nausea or vomiting. No diarrhea/constipation. Feels ' just totally wiped out.' Has home qHS oxygen requirement, shortness of breath improves with 2L O2. No fever, chills, sweats, loss of taste/smell/diarrhea/constipation +bilateral foot neuropathy, sensation to soft touch remains intact, Had 2nd dose of vaccine August 23. 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 Denies alcohol and recreational drug use. Code Status: Allergies Allergy/AdvReac Type Severity Reaction Status Date / Time chocolate flavor Allergy Intermediate Headache Verified 02/24/21 13:49 erythromycin base Allergy Intermediate CONFUSION, Verified 02/24/21 13:49 HEADACHE nitrofurantoin Allergy Intermediate 15 Verified 02/24/21 13:49 different symptoms Home Medications Medication Instructions Recorded Confirmed Type lancets 30 gauge (OneTouch Delica #25 ea 11/24/18 12/25/20 History Lancets) ipratropium bromide 17 1 puffs INH TID PRN #12.9 gm 07/04/19 02/24/21 Rx mcg/actuation HFA aerosol inhaler (Atrovent HFA) atorvastatin 10 mg tablet 10 mg PO 3XWK #36 tab 09/17/20 02/24/21 Rx glimepiride 2 mg tablet 2 mg PO QAM 10/07/20 02/24/21 History miconazole nitrate 2 % topical 1 applic TOP BID PRN 10/07/20 02/24/21 History powder (Desenex) triamcinolone acetonide 0.1 % 1 appln TOP BID PRN 10/07/20 02/24/21 History topical ointment turmeric 400 mg capsule 400 mg PO DAILY 10/07/20 02/24/21 History venlafaxine 75 mg capsule,extended 225 mg PO QAM 10/07/20 02/24/21 History release 24 hr blood sugar diagnostic 1 strip MISCELLANEOUS .COMPLEX 11/19/20 12/25/20 Rx #150 strip insulin glargine 100 unit/mL (3 30 unit SUBCUT QAM #15 ml 12/19/20 02/24/21 Rx mL) subcutaneous pen (Lantus Solostar U-100 Insulin) omeprazole 20 mg capsule,delayed 20 mg PO QAM #90 cap 01/14/21 02/24/21 Rx release dulaglutide 1.5 mg/0.5 mL See Rx Instructions .ROUTE 01/20/21 02/24/21 Rx subcutaneous pen injector .COMPLEX #2 ml (Trulicity) cetirizine 10 mg tablet (Zyrtec) 5 mg PO QAM PRN 02/24/21 02/24/21 History doxycycline hyclate 100 mg capsule 200 mg PO QAM 02/24/21 02/24/21 History fluticasone fur. 200 mcg-umeclid 1 inh INHALATION QAM 02/24/21 02/24/21 History 62.5 mcg-vilant 25 mcg inhalat.powder (Trelegy Ellipta) hydrochlorothiazide 25 mg tablet 25 mg PO QAM 02/24/21 02/24/21 History oxybutynin chloride 10 mg 10 mg PO HS 02/24/21 02/24/21 History tablet,extended release 24 hr Past Med/Surg History Medical History (Updated 02/24/21 @ 15:52 by Aleksey Fuentes MD) Candidal intertrigo Cheilitis Chronic respiratory failure with hypoxia, on home O2 therapy History of renal stent Nephrolithiasis Pacemaker Panniculitis Proctitis Pyelonephritis Rectal abscess Renal colic Syncope and collapse (06/03/13) 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) Vertigo Surgical History History of appendectomy History of biopsy of temporal artery History of colonoscopy (~06/2010) History of dilation and curettage History of neurologic surgery rhizotomy History of total abdominal hysterectomy S/P cholecystectomy S/P knee replacement Family History Family/Other Hypertension Diabetes Cancer Adopted Heart disease Grandmother Diabetes Heart disease Grandfather Heart disease Aunt Cancer Uncle Cancer Other No pertinent family history in first degree relatives Social History Smoking Status: Never smoker Hx Alcohol Use: No Hx Substance Use: No Preferred Language: Tajik Communication Ability: Effective Sand Control Worker Required: No Beliefs That Will Affect Care: None marital status: Single Current Living Situation: Alone Feels Safe at Home: Yes Assistive Devices: Cane Review of Systems Review of Systems: All systems reviewed & are unremarkable except as noted in HPI & below Physical Exam Physical Exam: General: A&Ox3. NAD. Cooperative. HEENT: Atraumatic, normocephalic. Lower lip with trace erythema, no overt infection/purulence appreciated Pulm: CTAB A&P. -wheezes, -rales, -rhonchi. Symmetrical chest rise. No increase work of breathing. No respiratory distress. Cardiac: RRR, -mrg. Radial pulses intact and symmetrical. Abdominal: Nontender, nondistended, soft. BS present. Ext: 2+ pitting edema bilat, slightly increased per pt. No erythema/warmth. Bilat LE chronic venous changes. CRANIAL NERVES: II: Pupils equal and reactive, no relative afferent pupillary defect, no VF cuts III, IV, : EOM intact, no gaze preference or deviation, no nystagmus. V: normal sensation in V1, V2, and V3 segments bilaterally VII: no asymmetry, no nasolabial fold flattening VIII: normal hearing to speech IX, X: normal palatal elevation, no uvular deviation XI: 5/5 head turn and 5/5 shoulder shrug bilaterally XII: midline tongue protrusion MOTOR: RUE: 5/5 Shoulder internal rotation, external rotation, flexion, extension, abduction, adduction 5/5 Elbow flexion/extension, wrist flexion/extension 5/5 internet marketer strength, finger flexion/extension,' interosseus LUE: 5/5 Shoulder internal rotation, external rotation, flexion, extension, abduction, adduction 5/5 Elbow flexion/extension, wrist flexion/extension 5/5 internet marketer strength, finger flexion/extension, interosseus RLE: 5/5 ankle dorsiflexion/plantarflexion LLE: 5/5 ankle dorsiflexion/plantarflexion SENSORY: Normal to touch, temp in upper and lower extremities without deficit or asymmetry. + mild neuropathy of feet bilat Results & Data Results & Data ([facility]) Vital Signs (Past 12 Hours) Vital Signs Temp Pulse Pulse Resp BP Pulse Ox 02/24/21 14:16 80 18 98 02/24/21 13:45 89 02/24/21 13:14 81 20 100 02/24/21 12:47 37.0 C 86 22 180/96 H 100 PG Care Time/CCT Total # of Minutes Spent Total Time Spent with Patient: Total time spent is greater than 50% in coordination of care (as documented) at patient's floor/unit and/or counseling patient: Coding Level of Care Code 90269 Initial Inpt Care Lvl 3 Diagnoses COVID-19 U07.1 Diabetes E11.9 Chronic kidney disease, stage III (moderate) N18.3 COPD (chronic obstructive pulmonary disease) J44.9 GERD (gastroesophageal reflux disease) K21.9 HTN (hypertension) I10 Depression F32.9 Anxiety F41.9 Urinary incontinence R32 Infection of lip K13.0
[2021-02-24] MEDS ORDERED: REMDESIVIR 200 MG in SODIUM CHLORIDE 0.9% 210 ML IV STA (15:47)
[2021-02-24] MEDS ORDERED: TRIAMCINOLONE ACET 0.1% OINT 15 GM TUBE TOP PRN (18:38)
[2021-02-24] MEDS ORDERED: DEXTROSE 50% 50 ML SYRINGE IV PRN (18:38)
[2021-02-24] MEDS ORDERED: CARBOHYDRATES FOR HYPOGLYCEMIA PO PRN (18:38)
[2021-02-24] MEDS ORDERED: GLUCAGON FOR INJ 1 MG VIAL SQ PRN (18:38)
[2021-02-24] MEDS ORDERED: PHARMACY GLYCEMIC MGMT CONSULT PRN (18:38)
[2021-02-24] MEDS ORDERED: ALBUT/IPRATROP 3MG/0.5MG NEB 3 ML VIAL NEB PRN (18:38)
[2021-02-24] MEDS ORDERED: GLUCOSE 40% GEL 15 GM TUBE PO PRN (18:38)
[2021-02-24] MEDS ORDERED: NON-FORMULARY MEDICATION (Fluticasone-Umeclidin-Vilanter [Trelegy Ellipta] 200-62.5-25 mcg INH SCH (18:38)
[2021-02-24] MEDS ORDERED: CETIRIZINE HCL 10 MG TABLET PO PRN (18:38)
[2021-02-24] MEDS ORDERED: GLUCOSE 10 TABS/TUBE PO PRN (18:38)
[2021-02-24] MEDS ORDERED: ACETAMINOPHEN 325 MG TAB PO PRN (18:38)
[2021-02-24] MEDS ORDERED: INSULIN GLARGINE SOLOSTAR 100 UNITS/ML 3 ML PEN SC STA (19:06)
[2021-02-24] MEDS: OXYBUTYNIN CHLORIDE XL 5 MG TABCR PO SCH (19:56)
[2021-02-24] MEDS: VENLAFAXINE HCL XR 75 MG CAPXR PO SCH (19:56)
[2021-02-24] MEDS: DOXYCYCLINE HYCLATE 100 MG CAP PO SCH (19:56)
[2021-02-24] MEDS: hydroCHLOROthiazide 25 MG TAB PO SCH (19:56)
[2021-02-24] MEDS: INSULIN ASPART 100 UNITS/ML 3 ML PEN SC SCH ×2 (20:00→23:22)
[2021-02-24] MEDS: MELATONIN 3 MG TAB PO PRN (22:25)
[2021-02-25] MEDS: INSULIN ASPART 100 UNITS/ML 3 ML PEN SC SCH ×6 (00:21→22:14)
--- NOTE | 2021-02-25 05:20 | Electrocardiogram Report ---
Test Reason : Blood Pressure : / mmHG Vent. Rate : 086 BPM Atrial Rate : 086 BPM P-R Int : 230 ms QRS Dur : 176 ms QT Int : 408 ms P-R-T Axes : 076 -80 093 degrees QTc Int : 488 ms Poor data quality, interpretation may be adversely affected Atrial-sensed ventricular-paced rhythm with prolonged AV conduction with occasional Premature ventric ular complexes Abnormal ECG When compared with ECG of 23-JAN-2021 14:00, Premature ventricular complexes are now Present Vent. rate has increased BY 12 BPM Confirmed by Fan Day ([id number]) on 02/25/2021 5:19:29 AM Referred By: REFERRED SELF Confirmed By:Fan Day
[2021-02-25] MEDS ORDERED: Influenza Vaccine-High Dose (Fluzone-HD) PF 65+ 0.7 ML SYR IM ONE (08:00)
[2021-02-25 08:07] LABS: Hematocrit (blood only) 38.9 % (37-47); Hemoglobin 13.1 g/dL (12.0-16.0); Immature Granulocytes # (auto) 0.02 K/uL (0.00-0.02); Immature Granulocytes % (auto) 0.4 %; Lymphocytes # (auto) 0.99 K/uL (1.2-3.4); Mean Corpuscular Hgb Conc 33.7 g/dL (32-36); Mean Corpuscular Volume 86.3 fL (80-100); Mean Platelet Volume 10.1 fL (7.4-10.4); Monocytes # (auto) 0.64 K/uL (0.11-0.59); Monocytes % (auto) 11.7 %; Neutrophils # (auto) 3.84 K/uL (1.4-6.5); Neutrophils % (auto) 69.9 %; Platelet Count 222 K/uL (130-400); RDW Coefficient of Variation 13.1 % (11.5-14.5); Red Blood Count 4.51 M/uL (4.2-5.4); White Blood Count 5.49 K/uL (4.8-10.8)
[2021-02-25 08:35] LABS: Albumin Level 2.7 gm/dl (3.4-5.0); BUN Creatinine Ratio 17.2 (10-20); Calcium 8.9 mg/dl (8.5-10.1); Creatinine Clr Calc Pharmacy 62.2 ml/min; Est GFR (African American) 53.3 ml/min; Potassium 4.2 mmol/L (3.5-5.1)
[2021-02-25 08:39] LABS: Albumin Globulin Ratio 0.6 (0.9-2); Bilirubin,Total 0.2 mg/dl (0.2-1); Globulin 4.5 gm/dl (2.5-4.0); Total Protein 7.2 gm/dl (6.4-8.2)
[2021-02-25] MEDS: dexAMETHasone 6 MG in SYRINGE 0 ML IV SCH (08:49)
[2021-02-25] MEDS: VENLAFAXINE HCL XR 75 MG CAPXR PO SCH (08:49)
[2021-02-25] MEDS: ATORVASTATIN 10 MG TAB PO SCH (08:49)
[2021-02-25] MEDS: DOXYCYCLINE HYCLATE 100 MG CAP PO SCH ×2 (08:49→20:47)
[2021-02-25] MEDS: FLUTICASONE FUROATE 200MCG 14 PUFFS/INHALER INH SCH (08:50)
[2021-02-25] MEDS: UMECLIDINIUM/VILANTEROL 62.5/25MCG 7 PUFFS/INHALER INH SCH (08:50)
[2021-02-25] MEDS: INSULIN HUMAN NPH SC SCH (09:21)
[2021-02-25] MEDS: hydroCHLOROthiazide 25 MG TAB PO SCH (10:34)
--- NOTE | 2021-02-25 11:23 | Hospitalist Progress Note ---
Date of Service February 25, 2021 Assessment & Plan (1) COVID-19: Plan: Shortness of Breath 2/2 COVID19 no obvious infiltrates on CXR, possible retrocardiac atelectasis vs infiltrate? no fever, breathing well on room air, productive cough started with symptoms on Tuesday, so only 4 days into her illness dexamethsone 6mg IV daily remdesivir daily flutter valve, incentive spirometer can use 2L NC at night but keep on room air during the day if still on room air tomorrow morning then discharge to home PT/OT consulted to make sure she is strong enough, she lives alone CXR, labs in the morning Lovenox for DVT prophylaxis (2) Diabetes: Plan: T2DM Continue glargine 30 units every morning, plus SSI as below SSI correction factor 30, carb ratio 11 Goal BSG [id number] Continue atorvastatin 10 mg 3 times weekly (3) Chronic kidney disease, stage III (moderate): Plan: CKD3 - Cr normal, at baseline BMP tomorrow (4) COPD (chronic obstructive pulmonary disease): Plan: COPD - Continue Trelegy formulary equivalent - Duonebs PRN Q4H -Flutter valve, incentive spirometry On doxycycline for lip infection as noted below, no additional antibiotics indicated at this time use 2L NC HS which is what she uses at home (5) GERD (gastroesophageal reflux disease): Plan: GERD Convert omeprazole 20 mg p.o. every morning to Protonix 20 mg p.o. every morning (6) HTN (hypertension): Plan: HTN Continue home hydrochlorothiazide 25 mg p.o. every morning ECHO 2020: EF 50-55%. (7) Depression: Plan: Dep w/ Anxiety Continue venlafaxine to 25 mg p.o. every morning (8) Anxiety: Plan: See Above (9) Urinary incontinence: Plan: Continue oxybutynin (10) Infection of lip: Plan: Patient with superficial infection of a canker sore on her lip, improving. Has had about 5 days of a total 5-day course Doxycycline 200 mg daily converted to 100 mg twice daily, continue for additional 5 days Clinically improved on exam Plan: DVT PPx: Lovenox Diet: DM Disposition: Med/Tele CODE STATUS: Full CODe try to discharge tomorrow AM, check PT/OT to see if she is strong enough to go home Admission and Anticipated Discharge Date Admission Date: February 24, 2021 Subjective patient says she is about 80% better coughing up more phlegm with flutter valve, breathing easier says she is supposed to use 2L NC at night even at home, no oxygen typically needed during the day she says she lives alone, her ocular care technologist is out until Mar 02 due to COVID her son is up from [place] looking at personal care homes, I discussed with her that with her + COVID status it would take a long, long time to get her somewhere if she is strong enough to go home then going home would be best option and get into personal care as outpatient eating well, no GI symptoms reviewed chart and labs and imaging, specifically CXR that does not show any obvious infiltrate, definitely no signs of viral pneumonia Review of Systems Review of Systems: All systems reviewed & are unremarkable except as noted in Subjective Constitutional: + fatigue and + weakness; no fever Respiratory: + cough, + chest congestion, + dyspnea, + dyspnea on exertion and + sputum production Physical Exam Physical Exam: General: well developed, well nourished, obese female, no acute distress, comfortable Neck: supple, trachea midline, normal thyroid Lungs: clear to auscultation bilaterally, normal respiratory effort, no accessory muscle use, no distress Heart: regular S1 and S2, no murmur, peripheral pulses normal, capillary refill normal, no edema Abdomen: soft, NT, ND, + BS, no hepatomegaly, normal to percussion Extremities: normal in appearance, no cyanosis, no petechiae, weakness in legs, arms 5/5 strength Neuro: awake, cooperative, moves all extremities, no focal motor deficits, CN II-XII intact, sensation in extremities intact, normal speech Skin: warm, dry, no rash, normal turgor Psych: Awake, alert oriented x 3, euthymic affect Results & Data Results & Data ([facility]) Vital Signs (Past 12 Hours) Vital Signs Temp Pulse Pulse Resp BP Pulse Ox 02/25/21 08:06 36.7 C 60 19 120/70 98 02/25/21 07:53 61 02/25/21 03:34 36.9 C 65 18 127/75 98 Laboratory Results Laboratory Results - last 24 hr 02/24/21 02/24/21 02/24/21 12:43 12:43 13:25 WBC 7.25 RBC 4.81 Hgb 14.1 Hct 41.9 MCV 87.1 MCH 29.3 MCHC 33.7 RDW Std Deviation 42.3 RDW Coeff of Iman 13.3 Plt Count 209 MPV 10.1 Immature Gran % (Auto) 0.3 Neut % (Auto) 71.8 Lymph % (Auto) 17.2 Foard % (Auto) 9.4 Eos % (Auto) 1.2 Baso % (Auto) 0.1 Neut # (Auto) 5.20 Lymph # (Auto) 1.25 Foard # (Auto) 0.68 H Eos # (Auto) 0.09 Baso # (Auto) 0.01 Immature Gran # (Auto) 0.02 Sodium Potassium Chloride Carbon Dioxide Anion Gap BUN Creatinine Est Cr Clr Drug Dosing Est GFR ( Amer) Est GFR (Non-Af Amer) BUN/Creatinine Ratio Glucose POC Glucose Calcium Total Bilirubin AST ALT Alkaline Phosphatase Troponin I Total Protein Albumin Globulin Albumin/Globulin Ratio COVID-19 Eval Order Covid19 at [facility] SARS-CoV-2 (PCR) POSITIVE A* 02/24/21 02/24/21 02/24/21 13:25 18:39 19:50 WBC RBC Hgb Hct MCV MCH MCHC RDW Std Deviation RDW Coeff of Iman Plt Count MPV Immature Gran % (Auto) Neut % (Auto) Lymph % (Auto) Foard % (Auto) Eos % (Auto) Baso % (Auto) Neut # (Auto) Lymph # (Auto) Foard # (Auto) Eos # (Auto) Baso # (Auto) Immature Gran # (Auto) Sodium 135 L Potassium 3.8 Chloride 101 Carbon Dioxide 26 Anion Gap 8.0 BUN 17 Creatinine 1.18 Est Cr Clr Drug Dosing 58.9 Est GFR ( Amer) 52.2 Est GFR (Non-Af Amer) 45.1 BUN/Creatinine Ratio 14.1 Glucose 172 H POC Glucose 253 H 264 H Calcium 9.3 Total Bilirubin 0.3 AST 15 ALT 16 Alkaline Phosphatase 128 H Troponin I < 0.015 Total Protein 8.2 Albumin 3.2 L Globulin 5.0 H Albumin/Globulin Ratio 0.6 L COVID-19 Eval Order SARS-CoV-2 (PCR) 02/25/21 02/25/21 02/25/21 00:17 00:18 03:59 WBC RBC Hgb Hct MCV MCH MCHC RDW Std Deviation RDW Coeff of Iman Plt Count MPV Immature Gran % (Auto) Neut % (Auto) Lymph % (Auto) Foard % (Auto) Eos % (Auto) Baso % (Auto) Neut # (Auto) Lymph # (Auto) Foard # (Auto) Eos # (Auto) Baso # (Auto) Immature Gran # (Auto) Sodium Potassium Chloride Carbon Dioxide Anion Gap BUN Creatinine Est Cr Clr Drug Dosing Est GFR ( Amer) Est GFR (Non-Af Amer) BUN/Creatinine Ratio Glucose POC Glucose 317 H* 320 H* 254 H Calcium Total Bilirubin AST ALT Alkaline Phosphatase Troponin I Total Protein Albumin Globulin Albumin/Globulin Ratio COVID-19 Eval Order SARS-CoV-2 (PCR) 02/25/21 02/25/21 02/25/21 07:47 07:47 08:02 WBC 5.49 RBC 4.51 Hgb 13.1 Hct 38.9 MCV 86.3 MCH 29.0 MCHC 33.7 RDW Std Deviation 42.0 RDW Coeff of Iman 13.1 Plt Count 222 MPV 10.1 Immature Gran % (Auto) 0.4 Neut % (Auto) 69.9 Lymph % (Auto) 18.0 Foard % (Auto) 11.7 Eos % (Auto) 0.0 Baso % (Auto) 0.0 Neut # (Auto) 3.84 Lymph # (Auto) 0.99 L Foard # (Auto) 0.64 H Eos # (Auto) 0.00 Baso # (Auto) 0.00 Immature Gran # (Auto) 0.02 Sodium 134 L Potassium 4.2 Chloride 103 Carbon Dioxide 25 Anion Gap 7.0 BUN 20 H Creatinine 1.16 Est Cr Clr Drug Dosing 62.2 Est GFR ( Amer) 53.3 Est GFR (Non-Af Amer) 46.0 BUN/Creatinine Ratio 17.2 Glucose 220 H POC Glucose 203 H Calcium 8.9 Total Bilirubin 0.2 AST 14 L ALT 16 Alkaline Phosphatase 105 Troponin I Total Protein 7.2 Albumin 2.7 L Globulin 4.5 H Albumin/Globulin Ratio 0.6 L COVID-19 Eval Order SARS-CoV-2 (PCR) Medications Administered Current Inpatient Medications Acetaminophen (Acetaminophen 325 Mg Tab) 650 mg PO Q4H PRN PRN Reason: Pain or Fever Stop: 03/26/21 18:37 Last Admin: 02/24/21 22:25 Dose: 650 mg Documented by: Albuterol (Albut/Ipratrop 3mg/0.5mg Neb 3 Ml Vial) 3 ml NEB Q2R PRN PRN Reason: Shortness of Breath/Wheezing Stop: 03/26/21 18:37 Atorvastatin Calcium (Atorvastatin 10 Mg Tab) 10 mg PO MoWeFr@0900 TERI Stop: 03/27/21 08:59 Last Admin: 02/25/21 08:49 Dose: 10 mg Documented by: Cetirizine HCl (Cetirizine Hcl 10 Mg Tablet) 5 mg PO QAM PRN PRN Reason: itching Stop: 03/26/21 18:37 Dextrose (Dextrose 50% 50 Ml Syringe) 25 - 50 ml IV UD PRN; Protocol PRN Reason: Hypoglycemia Protocol Stop: 03/26/21 18:37 Doxycycline Hyclate (Doxycycline Hyclate 100 Mg Cap) 100 mg PO BID TERI Stop: 03/01/21 20:59 Last Admin: 02/25/21 08:49 Dose: 100 mg Documented by: Fluticasone Furoate (Fluticasone Furoate 200mcg 14 Puffs/Inhaler) 1 puffs INH DAILY TERI; Protocol Stop: 03/27/21 08:59 Last Admin: 02/25/21 08:50 Dose: 1 puffs Documented by: Glucagon (Glucagon For Inj 1 Mg Vial) 1 mg SQ UD PRN; Protocol PRN Reason: Hypoglycemia Protocol Stop: 03/26/21 18:37 Glucose (Glucose 10 Tabs/Tube) 4 - 8 tabs PO UD PRN; Protocol PRN Reason: Hypoglycemia Protocol Stop: 03/26/21 18:37 Glucose (Glucose 40% Gel 15 Gm Tube) 15 - 30 gm PO UD PRN; Protocol PRN Reason: Hypoglycemia Protocol Stop: 03/26/21 18:37 Hydrochlorothiazide (Hydrochlorothiazide 25 Mg Tab) 25 mg PO QAM TERI Stop: 03/26/21 18:59 Last Admin: 02/25/21 10:34 Dose: 25 mg Documented by: Dexamethasone 6 mg/ Syringe 1.5 mls @ 1 mls/min IV DAILY TERI Stop: 03/07/21 08:59 Last Admin: 02/25/21 08:49 Dose: 1 mls/min Documented by: Remdesivir 100 mg/ Sodium (Chloride) 250 mls @ 250 mls/hr IV Q24H TERI; Protocol Stop: 02/28/21 12:59 Insulin Aspart (Insulin Aspart 100 Units/Ml 3 Ml Pen) 0 units SC ACHS TERI; Protocol Stop: 03/26/21 18:59 Last Admin: 02/25/21 09:21 Dose: 14 units Documented by: Insulin Human NPH (Insulin Human Nph) 40 units SC DAILY TERI Stop: 03/27/21 08:59 Last Admin: 02/25/21 09:21 Dose: 40 units Documented by: Melatonin (Melatonin 3 Mg Tab) 3 mg PO HS PRN PRN Reason: Sleep Stop: 03/26/21 21:43 Last Admin: 02/24/21 22:25 Dose: 3 mg Documented by: Miscellaneous (Carbohydrates For Hypoglycemia ) 15 - 30 gm PO UD PRN PRN Reason: Hypoglycemia Protocol Stop: 03/26/21 18:37 Miscellaneous Information (Pharmacy Glycemic Mgmt Consult) 1 ea N/A UD PRN; Protocol PRN Reason: Consult Stop: 03/26/21 18:37 Oxybutynin Chloride (Oxybutynin Chloride Xl 5 Mg Tabcr) 10 mg PO HS TERI Stop: 03/26/21 20:59 Last Admin: 02/24/21 19:56 Dose: 10 mg Documented by: Sodium Chloride (Sodium Chloride 0.9% 10ml Flush) 30 ml IV Q24H TERI Stop: 02/28/21 12:01 Triamcinolone Acetonide (Triamcinolone Acet 0.1% Oint 15 Gm Tube) 1 appln TOP BID PRN PRN Reason: Skin Irritation Stop: 03/26/21 18:37 Umeclidinium/Vilanterol (Umeclidinium/Vilanterol 62.5/25mcg 7 Puffs/Inhaler) 1 puffs INH DAILY TERI; Protocol Stop: 03/27/21 08:59 Last Admin: 02/25/21 08:50 Dose: 1 puffs Documented by: Venlafaxine HCl (Venlafaxine Hcl Xr 75 Mg Capxr) 225 mg PO QAM TERI Stop: 03/26/21 18:59 Last Admin: 02/25/21 08:49 Dose: 225 mg Documented by: PG Care Time/CCT Total # of Minutes Spent Total Time Spent with Patient: Total time spent is greater than 50% in coordination of care (as documented) at patient's floor/unit and/or counseling patient: Coding Level of Care Code 88219 Subseq Hosp Care Lvl 2 Diagnoses COVID-19 U07.1 Diabetes E11.9 Chronic kidney disease, stage III (moderate) N18.3 COPD (chronic obstructive pulmonary disease) J44.9 GERD (gastroesophageal reflux disease) K21.9 HTN (hypertension) I10 Depression F32.9 Anxiety F41.9 Urinary incontinence R32 Infection of lip K13.0
[2021-02-25] MEDS: SODIUM CHLORIDE 0.9% 10ML FLUSH IV SCH (12:29)
[2021-02-25] MEDS: REMDESIVIR 100 MG in SODIUM CHLORIDE 0.9% 230 ML IV SCH (12:29)
--- NOTE | 2021-02-25 14:35 | Pharmacy Report ---
Pharmacy Glycemic Short Note 2 - Date of Service February 25, 2021 - Glycemic Short BSG Results (Last 24 hours): 02/24/21 02/24/21 02/25/21 18:39 19:50 00:17 Glucose POC Glucose 253 H 264 H 317 H* 02/25/21 02/25/21 02/25/21 00:18 03:59 07:47 Glucose 220 H POC Glucose 320 H* 254 H 02/25/21 02/25/21 08:02 11:50 Glucose POC Glucose 203 H 217 H OUTPATIENT ANTIDIABETIC REGIMEN: * Trulicity, glimepiride, Lantus 30 units Qam * A1c 8.5% ASSESSMENT: * 75 year old admitted with COVID pneumonia. Type 2 diabetes on dexamethasone. * Received 30 units of basal last evening (home dose Lantus) * Fasting BSG elevated at 203 mg/dL - plan to add NPH onto regimen to help with coverage of dexamethasone throughout the day - plan to start NPH 0.4 units/kg Adj BW * Will continue home Lantus tonight, may add scale PLAN FOR INPATIENT GLYCEMIC CONTROL: * Hold outpatient oral diabetes medications * Basal insulin * Lantus 25-30 units HS * NPH 40 units daily - with DXM 6 mg iv * Bolus insulin * NovoLog per scale ACHS or Q6hrs while NPO * Goal Range: Low 110 mg/dL - High 140 mg/dL * Correction Factor: 15 mg/dL/unit * Nutritional / Prandial insulin per carb ratio of 1 unit per 6 grams CHO consumed PLAN FOR DISCHARGE: * tbd
[2021-02-25] MEDS: OXYBUTYNIN CHLORIDE XL 5 MG TABCR PO SCH (20:48)
[2021-02-25] MEDS ORDERED: INSULIN GLARGINE SOLOSTAR 100 UNITS/ML 3 ML PEN SC SCH (21:00)
[2021-02-25] MEDS: MELATONIN 3 MG TAB PO PRN (21:16)
[2021-02-25] MEDS: INSULIN GLARGINE SOLOSTAR 100 UNITS/ML 3 ML PEN SC SCH (22:15)
[2021-02-26 06:29] LABS: Hematocrit (blood only) 40.8 % (37-47); Hemoglobin 13.6 g/dL (12.0-16.0); Mean Corpuscular Hemoglobin 29.1 pg (25-34); Mean Corpuscular Hgb Conc 33.3 g/dL (32-36); Mean Corpuscular Volume 87.2 fL (80-100); Mean Platelet Volume 10.1 fL (7.4-10.4); Platelet Count 224 K/uL (130-400); RDW Coefficient of Variation 13.1 % (11.5-14.5); RDW Standard Deviation 41.6 fL (36.4-46.3); Red Blood Count 4.68 M/uL (4.2-5.4); White Blood Count 5.55 K/uL (4.8-10.8)
[2021-02-26 06:56] LABS: BUN Creatinine Ratio 25.2 (10-20); Creatinine Clr Calc Pharmacy 64.5 ml/min; Est GFR (African American) 55.6 ml/min; Potassium 3.7 mmol/L (3.5-5.1)
[2021-02-26 06:57] LABS: C Reactive Protein 2.8 mg/dl (0-0.29)
[2021-02-26] MEDS: INSULIN ASPART 100 UNITS/ML 3 ML PEN SC SCH ×4 (08:32→21:23)
[2021-02-26] MEDS: dexAMETHasone 6 MG in SYRINGE 0 ML IV SCH (08:34)
[2021-02-26] MEDS: INSULIN HUMAN NPH SC SCH (08:34)
[2021-02-26] MEDS: FLUTICASONE FUROATE 200MCG 14 PUFFS/INHALER INH SCH (08:35)
[2021-02-26] MEDS: hydroCHLOROthiazide 25 MG TAB PO SCH (08:35)
[2021-02-26] MEDS: DOXYCYCLINE HYCLATE 100 MG CAP PO SCH ×2 (08:35→21:00)
[2021-02-26] MEDS: VENLAFAXINE HCL XR 75 MG CAPXR PO SCH ×2 (08:35→08:46)
[2021-02-26] MEDS: UMECLIDINIUM/VILANTEROL 62.5/25MCG 7 PUFFS/INHALER INH SCH (08:36)
--- NOTE | 2021-02-26 09:22 | XRay Report ---
XR chest 1V portable HISTORY: 75 years-old Female COVID acute shortness of breath. COVID Positive. COMPARISON: Chest radiograph 02/24/2021 TECHNIQUE: Portable AP view of the chest FINDINGS: The cardiac silhouette is enlarged. Calcified plaque of the thoracic aorta. Left subclavian pacer. Un changed mild right hemidiaphragmatic elevation. Mild bibasilar opacities are redemonstrated. No pneum othorax, large pleural effusion or overt pulmonary edema. Degenerative changes of the shoulders and s pine. Small calcified granuloma of the right midlung. IMPRESSION: 1. Cardiomegaly without pulmonary edema. 2. Unchanged mild bibasilar densities suggestive of probable atelectasis. ACT 112: Negative or not required by law. The above report was generated using voice recognition software. It may contain grammatical, syntax o r spelling errors. Electronically signed by: Cecil Sams M.D. 02/26/2021 9:21 AM
--- NOTE | 2021-02-26 10:03 | Pharmacy Report ---
Pharmacy Glycemic Short Note 2 - Date of Service February 26, 2021 - Glycemic Short BSG Results (Last 24 hours): 02/25/21 02/25/21 02/25/21 11:50 17:04 20:40 Glucose POC Glucose 217 H 232 H 259 H 02/26/21 02/26/21 05:44 08:11 Glucose 164 H POC Glucose 138 H OUTPATIENT ANTIDIABETIC REGIMEN: * Trulicity, glimepiride, Lantus 30 units Qam * A1c 8.5% ASSESSMENT: 02/26 * Patient received total of 126 units of insulin yesterday, of which 30 units were basal and 40 units were NPH to cover dex * Fasting BSG 138 mg/dL - plan to continue same basal * BSGs yesterday trending up throughout the day, will tighten CR 02/25 * 75 year old admitted with COVID pneumonia. Type 2 diabetes on dexamethasone. * Received 30 units of basal last evening (home dose Lantus) * Fasting BSG elevated at 203 mg/dL - plan to add NPH onto regimen to help with coverage of dexamethasone throughout the day - plan to start NPH 0.4 units/kg Adj BW * Will continue home Lantus tonight, may add scale PLAN FOR INPATIENT GLYCEMIC CONTROL: * Hold outpatient oral diabetes medications * Basal insulin * Lantus 25-30 units HS * NPH 40 units daily - with DXM 6 mg iv * Bolus insulin * NovoLog per scale ACHS or Q6hrs while NPO * Goal Range: Low 110 mg/dL - High 140 mg/dL * Correction Factor: 15 mg/dL/unit * Nutritional / Prandial insulin per carb ratio of 1 unit per 5 grams CHO consumed PLAN FOR DISCHARGE: * A1c ~8.5% - Goal <7-8% reasonable * Appears last A1c was 7.8% earlier in the year - 08/2020. Per provider outpatient notes, patient under stressful situation at home this past year. Reasonable to continue home regimen on discharge for diabetes. Would encourage healthy lifestyle (diet, exercise, etc). Feel that an additional agent /titration of regimen can be assessed outpatient if needed
[2021-02-26] MEDS: REMDESIVIR 100 MG in SODIUM CHLORIDE 0.9% 230 ML IV SCH (13:00)
[2021-02-26] MEDS: SODIUM CHLORIDE 0.9% 10ML FLUSH IV SCH (14:41)
--- NOTE | 2021-02-26 15:12 | Hospitalist Progress Note ---
Date of Service February 26, 2021 Assessment & Plan (1) COVID-19: Plan: Shortness of Breath 2/2 COVID19 no obvious infiltrates on CXR, possible retrocardiac atelectasis vs infiltrate? no fever, breathing well on room air, productive cough started with symptoms on Tuesday, so only 5 days into her illness dexamethsone 6mg IV daily while here remdesivir daily while here flutter valve, incentive spirometer can use 2L NC at night but keep on room air during the day PT/OT today - did well, can return home with home health patient lives alone, incredibly nervous will get 2 step tomorrow to see if she needs oxygen on exertion plan to discharge to home in morning CBC, BMP normal, CRP only 2.8 Lovenox for DVT prophylaxis (2) Diabetes: Plan: T2DM Continue glargine 30 units every morning, plus SSI as below SSI correction factor 30, carb ratio 11 Goal BSG [id number] Continue atorvastatin 10 mg 3 times weekly sugars better controlled now (3) Chronic kidney disease, stage III (moderate): Plan: CKD3 - Cr normal, at baseline, electrolytes stable (4) COPD (chronic obstructive pulmonary disease): Plan: COPD - Continue Trelegy formulary equivalent - Duonebs PRN Q4H -Flutter valve, incentive spirometry On doxycycline for lip infection as noted below, no additional antibiotics indicated at this time use 2L NC HS which is what she uses at home (5) GERD (gastroesophageal reflux disease): Plan: GERD Convert omeprazole 20 mg p.o. every morning to Protonix 20 mg p.o. every morning (6) HTN (hypertension): Plan: HTN Continue home hydrochlorothiazide 25 mg p.o. every morning ECHO 2020: EF 50-55%. (7) Depression: Plan: Dep w/ Anxiety Continue venlafaxine to 25 mg p.o. every morning (8) Anxiety: Plan: See Above (9) Urinary incontinence: Plan: Continue oxybutynin (10) Infection of lip: Plan: Patient with superficial infection of a canker sore on her lip, improving. Has had about 5 days of a total 5-day course Doxycycline 200 mg daily converted to 100 mg twice daily, continue for additional 5 days Clinically improved on exam Plan: DVT PPx: Lovenox Diet: DM Disposition: Med/Tele CODE STATUS: Full CODe cleared for home with home health by PT/OT, plan for 2 step in morning and discharge home Admission and Anticipated Discharge Date Admission Date: February 24, 2021 Subjective patient doing well with therapy, walked well with PT/OT, able to perform ADL she remains on room air, will plan for 2 step tomorrow morning she is incredibly nervous about going home, assured her that she is moving around well, even if she is weaker than normal breathing is stable, minimal cough, she is eating spoke with her cousin and her son on the phone will get home health arranged, try to get her home tomorrow labs reviewed, CBC stable, Cr normal, CRP is 2.8 Review of Systems Review of Systems: All systems reviewed & are unremarkable except as noted in Subjective Constitutional: + fatigue and + weakness; no fever Respiratory: + dyspnea on exertion; no cough and no dyspnea Psychiatric: + anxiety Physical Exam Physical Exam: General: well developed, well nourished, obese female, no acute distress, comfortable Neck: supple, trachea midline, normal thyroid Lungs: clear to auscultation bilaterally, normal respiratory effort, no accessory muscle use, no distress Heart: regular S1 and S2, no murmur, peripheral pulses normal, capillary refill normal, no edema Abdomen: soft, NT, ND, + BS, no hepatomegaly, normal to percussion Extremities: normal in appearance, no cyanosis, no petechiae, weakness in legs, arms 5/5 strength Neuro: awake, cooperative, moves all extremities, no focal motor deficits, CN II-XII intact, sensation in extremities intact, normal speech Skin: warm, dry, no rash, normal turgor Psych: Awake, alert oriented x 3, euthymic affect Results & Data Results & Data ([facility]) Vital Signs (Past 12 Hours) Vital Signs Temp Pulse Resp BP Pulse Ox Pulse Ox Pulse Ox 02/26/21 13:17 96 96 02/26/21 11:55 36.6 C 76 20 146/71 H 95 02/26/21 07:00 37.0 C 63 19 143/83 H 99 02/26/21 03:36 36.6 C 60 18 147/63 H 95 Pulse Ox 02/26/21 13:17 90 02/26/21 11:55 02/26/21 07:00 02/26/21 03:36 Laboratory Results Laboratory Results - last 24 hr 02/25/21 02/25/21 02/26/21 17:04 20:40 05:44 WBC 5.55 RBC 4.68 Hgb 13.6 Hct 40.8 MCV 87.2 MCH 29.1 MCHC 33.3 RDW Std Deviation 41.6 RDW Coeff of Iman 13.1 Plt Count 224 MPV 10.1 Sodium Potassium Chloride Carbon Dioxide Anion Gap BUN Creatinine Est Cr Clr Drug Dosing Est GFR ( Amer) Est GFR (Non-Af Amer) BUN/Creatinine Ratio Glucose POC Glucose 232 H 259 H Calcium C-Reactive Protein 02/26/21 02/26/21 02/26/21 05:44 08:11 11:52 WBC RBC Hgb Hct MCV MCH MCHC RDW Std Deviation RDW Coeff of Iman Plt Count MPV Sodium 134 L Potassium 3.7 Chloride 100 Carbon Dioxide 28 Anion Gap 6.0 BUN 28 H Creatinine 1.12 Est Cr Clr Drug Dosing 64.5 Est GFR ( Amer) 55.6 Est GFR (Non-Af Amer) 48.0 BUN/Creatinine Ratio 25.2 H Glucose 164 H POC Glucose 138 H 186 H Calcium 9.0 C-Reactive Protein 2.80 H Medications Administered Current Inpatient Medications Acetaminophen (Acetaminophen 325 Mg Tab) 650 mg PO Q4H PRN PRN Reason: Pain or Fever Stop: 03/26/21 18:37 Last Admin: 02/24/21 22:25 Dose: 650 mg Documented by: Albuterol (Albut/Ipratrop 3mg/0.5mg Neb 3 Ml Vial) 3 ml NEB Q2R PRN PRN Reason: Shortness of Breath/Wheezing Stop: 03/26/21 18:37 Atorvastatin Calcium (Atorvastatin 10 Mg Tab) 10 mg PO MoWeFr@0900 [facility] Stop: 03/27/21 08:59 Last Admin: 02/25/21 08:49 Dose: 10 mg Documented by: Cetirizine HCl (Cetirizine Hcl 10 Mg Tablet) 5 mg PO QAM PRN PRN Reason: itching Stop: 03/26/21 18:37 Dextrose (Dextrose 50% 50 Ml Syringe) 25 - 50 ml IV UD PRN; Protocol PRN Reason: Hypoglycemia Protocol Stop: 03/26/21 18:37 Doxycycline Hyclate (Doxycycline Hyclate 100 Mg Cap) 100 mg PO BID [facility] Stop: 03/01/21 20:59 Last Admin: 02/26/21 08:35 Dose: 100 mg Documented by: Fluticasone Furoate (Fluticasone Furoate 200mcg 14 Puffs/Inhaler) 1 puffs INH DAILY TERI; Protocol Stop: 03/27/21 08:59 Last Admin: 02/26/21 08:35 Dose: 1 puffs Documented by: Glucagon (Glucagon For Inj 1 Mg Vial) 1 mg SQ UD PRN; Protocol PRN Reason: Hypoglycemia Protocol Stop: 03/26/21 18:37 Glucose (Glucose 10 Tabs/Tube) 4 - 8 tabs PO UD PRN; Protocol PRN Reason: Hypoglycemia Protocol Stop: 03/26/21 18:37 Glucose (Glucose 40% Gel 15 Gm Tube) 15 - 30 gm PO UD PRN; Protocol PRN Reason: Hypoglycemia Protocol Stop: 03/26/21 18:37 Hydrochlorothiazide (Hydrochlorothiazide 25 Mg Tab) 25 mg PO QAM TERI Stop: 03/26/21 18:59 Last Admin: 02/26/21 08:35 Dose: 25 mg Documented by: Dexamethasone 6 mg/ Syringe 1.5 mls @ 1 mls/min IV DAILY TERI Stop: 03/07/21 08:59 Last Admin: 02/26/21 08:34 Dose: 1 mls/min Documented by: Remdesivir 100 mg/ Sodium (Chloride) 250 mls @ 250 mls/hr IV Q24H TERI; Protocol Stop: 02/28/21 12:59 Last Infusion: 02/26/21 14:41 Dose: Infused Documented by: Insulin Aspart (Insulin Aspart 100 Units/Ml 3 Ml Pen) 0 units SC ACHS TERI; Protocol Stop: 03/26/21 18:59 Last Admin: 02/26/21 12:45 Dose: 11 units Documented by: Insulin Glargine (Insulin Glargine Solostar 100 Units/Ml 3 Ml Pen) 0 units SC HS TERI; Protocol Stop: 03/27/21 20:59 Last Admin: 02/25/21 22:15 Dose: 30 units Documented by: Insulin Human NPH (Insulin Human Nph) 40 units SC DAILY TERI Stop: 03/27/21 08:59 Last Admin: 02/26/21 08:34 Dose: 40 units Documented by: Melatonin (Melatonin 3 Mg Tab) 3 mg PO HS PRN PRN Reason: Sleep Stop: 03/26/21 21:43 Last Admin: 02/25/21 21:16 Dose: 3 mg Documented by: Miscellaneous (Carbohydrates For Hypoglycemia ) 15 - 30 gm PO UD PRN PRN Reason: Hypoglycemia Protocol Stop: 03/26/21 18:37 Miscellaneous Information (Pharmacy Glycemic Mgmt Consult) 1 ea N/A UD PRN; Protocol PRN Reason: Consult Stop: 03/26/21 18:37 Oxybutynin Chloride (Oxybutynin Chloride Xl 5 Mg Tabcr) 10 mg PO HS TERI Stop: 03/26/21 20:59 Last Admin: 02/25/21 20:48 Dose: 10 mg Documented by: Sodium Chloride (Sodium Chloride 0.9% 10ml Flush) 30 ml IV Q24H TERI Stop: 02/28/21 12:01 Last Admin: 02/26/21 14:41 Dose: 30 ml Documented by: Triamcinolone Acetonide (Triamcinolone Acet 0.1% Oint 15 Gm Tube) 1 appln TOP BID PRN PRN Reason: Skin Irritation Stop: 03/26/21 18:37 Umeclidinium/Vilanterol (Umeclidinium/Vilanterol 62.5/25mcg 7 Puffs/Inhaler) 1 puffs INH DAILY TERI; Protocol Stop: 03/27/21 08:59 Last Admin: 02/26/21 08:36 Dose: 1 puffs Documented by: Venlafaxine HCl (Venlafaxine Hcl Xr 75 Mg Capxr) 225 mg PO QAM TERI Stop: 03/26/21 18:59 Last Admin: 02/26/21 08:35 Dose: 225 mg Documented by: PG Care Time/CCT Total # of Minutes Spent Total Time Spent with Patient: Total time spent is greater than 50% in coordination of care (as documented) at patient's floor/unit and/or counseling patient: Coding Level of Care Code 36983 Subseq Hosp Care Lvl 2 Diagnoses COVID-19 U07.1 Diabetes E11.9 Chronic kidney disease, stage III (moderate) N18.3 COPD (chronic obstructive pulmonary disease) J44.9 GERD (gastroesophageal reflux disease) K21.9 HTN (hypertension) I10 Depression F32.9 Anxiety F41.9 Urinary incontinence R32 Infection of lip K13.0
[2021-02-26] MEDS: MELATONIN 3 MG TAB PO PRN (21:00)
[2021-02-26] MEDS: OXYBUTYNIN CHLORIDE XL 5 MG TABCR PO SCH (21:00)
[2021-02-26] MEDS: INSULIN GLARGINE SOLOSTAR 100 UNITS/ML 3 ML PEN SC SCH (21:25)
[2021-02-27 07:59] VITALS: O2SAT 96
[2021-02-27 08:03] VITALS: PULSE 63; TEMP 97.9
[2021-02-27] MEDS: dexAMETHasone 6 MG in SYRINGE 0 ML IV SCH (08:47)
[2021-02-27] MEDS: UMECLIDINIUM/VILANTEROL 62.5/25MCG 7 PUFFS/INHALER INH SCH (08:48)
[2021-02-27] MEDS: VENLAFAXINE HCL XR 75 MG CAPXR PO SCH (08:49)
[2021-02-27] MEDS: hydroCHLOROthiazide 25 MG TAB PO SCH (08:49)
[2021-02-27] MEDS: FLUTICASONE FUROATE 200MCG 14 PUFFS/INHALER INH SCH (08:49)
[2021-02-27] MEDS: ATORVASTATIN 10 MG TAB PO SCH (08:49)
[2021-02-27] MEDS: DOXYCYCLINE HYCLATE 100 MG CAP PO SCH (08:49)
[2021-02-27] MEDS ORDERED: INSULIN HUMAN NPH SC SCH (09:00)
--- NOTE | 2021-02-27 09:25 | Discharge Summary ---
Date of Service February 27, 2021 Admission HPI Per Admitting Provider Sonya is a 75-year-old female with a past medical history of diabetes, hypertension, anxiety/depression, hyperlipidemia, GERD, obesity with BMI 46.3, CKD 3, chronic venous stasis/peripheral venous insufficiency, and pacemaker placement who presents with shortness of breath 2 days after having lunch with a family member who was Covid positive and who is Covid positive on admission. 2 days of nonproductive cough + shortness of breath. +headache. No nausea or vomiting. No diarrhea/constipation. Feels ' just totally wiped out.' Has home qHS oxygen requirement, shortness of breath improves with 2L O2. No fever, chills, sweats, loss of taste/smell/diarrhea/constipation +bilateral foot neuropathy, sensation to soft touch remains intact, Had 2nd dose of vaccine August 23. 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 Denies alcohol and recreational drug use. Code Status: Principal Diagnosis COVID 19 infection Weakness Discharge Exam General: well developed, well nourished, obese female, no acute distress, comfortable Neck: supple, trachea midline, normal thyroid Lungs: clear to auscultation bilaterally, normal respiratory effort, no accessory muscle use, no distress Heart: regular S1 and S2, no murmur, peripheral pulses normal, capillary refill normal, no edema Abdomen: soft, NT, ND, + BS, no hepatomegaly, normal to percussion Extremities: normal in appearance, no cyanosis, no petechiae, 5/5 strength bilaterally, ambulating with walker Neuro: awake, cooperative, moves all extremities, no focal motor deficits, CN II-XII intact, sensation in extremities intact, normal speech Skin: warm, dry, no rash, normal turgor Psych: Awake, alert oriented x 3, euthymic affect Discharge Data Allergies Allergy/AdvReac Type Severity Reaction Status Date / Time chocolate flavor Allergy Intermediate Headache Verified 02/24/21 13:49 erythromycin base Allergy Intermediate CONFUSION, Verified 10/26/21 13:49 HEADACHE nitrofurantoin Allergy Intermediate 15 Verified 02/24/21 13:49 different symptoms Consultations 02/24/21 15:02 ED Decision to Admit Stat Hospital Course (1) COVID-19: Shortness of Breath 2/2 COVID19 no obvious infiltrates on CXR, possible retrocardiac atelectasis vs infiltrate? no fever, breathing well on room air entire stay, productive cough started with symptoms on Tuesday, so only 6 days into her illness dexamethsone 6mg IV daily while here but no need to continue on discharge as she is on room air remdesivir daily while here but will stop, no further benefit flutter valve, incentive spirometer can use 2L NC at night but keep on room air during the day PT/OT - did well, can return home with home health 2 step on 02/27: no oxygen at rest or on exertion patient lives alone, feels more confident about going home today, was nervous yesterday CBC, BMP normal, CRP only 2.8 Lovenox for DVT prophylaxis while here (2) Diabetes: T2DM Continue glargine 30 units every morning, plus SSI as below SSI correction factor 30, carb ratio 11 Goal BSG [id number] Continue atorvastatin 10 mg 3 times weekly sugars better controlled now, resume home regimen, no plans for dexamethasone at home (3) Chronic kidney disease, stage III (moderate): CKD3 - Cr normal, at baseline, electrolytes stable (4) COPD (chronic obstructive pulmonary disease): COPD - Continue Trelegy formulary equivalent - Duonebs PRN Q4H -Flutter valve, incentive spirometry On doxycycline for lip infection as noted below, no additional antibiotics indicated at this time use 2L NC HS which is what she uses at home (5) GERD (gastroesophageal reflux disease): GERD Convert omeprazole 20 mg p.o. every morning to Protonix 20 mg p.o. every morning (6) HTN (hypertension): HTN Continue home hydrochlorothiazide 25 mg p.o. every morning ECHO 2019: EF 50-55%. (7) Depression: Dep w/ Anxiety Continue venlafaxine to 25 mg p.o. every morning (8) Anxiety: See Above (9) Urinary incontinence: Continue oxybutynin (10) Infection of lip: completed course of doxycycline - instructed to use topical bacitracin, polymyxin B at home follow up with PCP DVT PPx: Lovenox Diet: DM Disposition: Med/Tele CODE STATUS: Full CODe cleared for home with home health by PT/OT, no need for home oxygen, home health arranged, family will also check on her Home Health Attestation I certify that this patient is under my care and that I, or a physicians plant attendant or assistant operator working with me, had a face to-face encounter that meets the home health [id number] encounter requirements with this patient. The encounter with the patient was in whole, or in part, for the following medical condition, which is the primary reason for home health care (list medical condition): Covid I certify that, based on my findings, the following services are medically necessary home health services: My clinical findings support the need for the above services because: OT Assess ADL Status and Restore Function w ADLs PT Assessment for Endurance / Balance / Strength PT Eval for Safety and Mobility PT Eval for Safety, Gait Training, Assistive Devices PT Gait and Balance Training, Strengthening and Safety Skilled Nsg Assessment Further, I certify that my clinical findings support that this patient is homebound (i.e. absences from home require considerable and taxing effort and are for medical reasons or sabianist services or infrequently or of short duration when for other reasons) because: Supportive Aid - Walker Certification for Home Health Services: Based on the above findings, I certify that this patient is confined to the home and needs intermittent nursing home care, physical therapy and/or speech therapy or continues to need occupational therapy. The patient is under my care, and I have initiated the establishment of the plan of care. This patient will be followed by a physician who will periodically review the plan of care. Total Time Total Time Spent Total Time Spent (In Minutes): 36 Total Time Includes: Examination of the Patient, Discharge Planning, Medication Reconciliation and Other (spoke with family on the phone) Discharge Plan Discharge Items Patient Disposition: Home - Home Health Services Reason For Visit: COVID+, HYPOXIA Discharge Diagnosis: COVID infection Weakness Condition on Discharge: Good Goals: improve strength and mobility stay well nourished, well hydrated, well rested Activity: Resume your previous activity Weightbearing: Full weightbearing Non-emergency contact: Primary Care Provider Call non-emergency contact if: you have any medication questions and your symptoms worsen Follow-up/Referrals: Ty Obando MD [Primary Care Provider] - 03/06/21 9:00 am (one week) Diet: Carb Consistent or DM2 Addtl Attending Provider Instructions: Medications: - BACITRACIN/POLYMYXIN B (Neosporin or Polysporin over the counter) apply to the skin twice a day, recommend after you eat breakfast/dinner, don' ingest so just on the external lip surface no further systemic antibiotics, can stop Doxycycline COVID infection: lungs clear, stable on room air at rest and on exertion no further steroids, studies have actually shown that dexamethasone can be detrimental if you are not actually hypoxic stay well nourished, well hydrated, get rest you can take immune support such as Zinc 220mg, Vitamin C 500mg, Vitamin D 1000mg daily for the next week monitor your breathing, use a finger pulse oximeter, saturations should be greater than 88% if you start to develop hypoxia (<88%) then return to the emergency room, but I anticipate you will be fine continue to use oxygen 2L at night as you were previously prescribed Pending Studies at Discharge: No Stand-Alone Forms: My [facility], Smoking Cessation Medications and DC Order Prescriptions: Continued atorvastatin 10 mg tablet 10 mg PO [id number] Qty: 36 RF: 3 blood sugar diagnostic Strip 1 strip miscellaneous .COMPLEX Qty: 150 RF: 11 Lantus Solostar U-100 Insulin 100 unit/mL (3 mL) insulin pen 30 unit subcut QAM Qty: 15 RF: 11 omeprazole 20 mg capsule,delayed release(DR/EC) 20 mg PO QAM Qty: 90 RF: 3 Trulicity 1.5 mg/0.5 mL pen injector See Rx Instructions .ROUTE .COMPLEX Qty: 2 RF: 5 Atrovent HFA 17 mcg/actuation HFA aerosol inhaler 1 puffs INH TID PRN (Reason: Shortness Of Breath) Qty: 12.9 RF: 11 (DME) lancets [OneTouch Delica Lancets] 30 gauge misc See Dose Instructions .ROUTE .MEDSUPPLY Qty: 25 RF: 0 venlafaxine 75 mg capsule,extended release 24hr 225 mg PO QAM RF: 0 Desenex 2 % powder 1 applic TOP BID PRN (Reason: NEEDED) RF: 0 glimepiride 2 mg tablet 2 mg PO QAM RF: 0 triamcinolone acetonide 0.1 % ointment 1 appln TOP BID PRN (Reason: Skin Irritation) RF: 0 turmeric 400 mg Capsule 400 mg PO DAILY RF: 0 oxybutynin chloride 10 mg tablet extended release 24hr 10 mg PO HS RF: 0 cetirizine [Zyrtec] 10 mg tablet 5 mg PO QAM PRN (Reason: itching) RF: 0 hydrochlorothiazide 25 mg tablet 25 mg PO QAM RF: 0 Trelegy Ellipta 200-62.5-25 mcg blister with device 1 inh inhalation QAM RF: 0 Discontinued doxycycline hyclate 100 mg capsule 200 mg PO QAM RF: 0 Discharge Orders: Discharge Order (Routine); Ordered 02/27/21 Ordered By: Isaac iDane Admission Data Admit Date/Time: 02/24/21 15:47 Attending Provider: Isaac Diane Admit Provider: Aleksey Fuentes Primary Care Provider: Ty Obando Other Providers: Aleksey Fuentes Other Interventions: Discharge Summary Assessment (RN) Last Done: 02/27/21 10:36 Coding Level of Care Code D/C DAY MANAGEMENT >30 MINS Diagnoses COVID-19 U07.1 Diabetes E11.9 Chronic kidney disease, stage III (moderate) N18.3 COPD (chronic obstructive pulmonary disease) J44.9 GERD (gastroesophageal reflux disease) K21.9 HTN (hypertension) I10 Depression F32.9 Anxiety F41.9 Urinary incontinence R32 Infection of lip K13.0
[2021-02-27] MEDS: INSULIN ASPART 100 UNITS/ML 3 ML PEN SC SCH (09:36)
[2021-02-27 10:38] VITALS: BP 155/75
== END 2021-02-27 11:21 | disposition home health service (06) | DRG 178 ==
LOC: ED 12:32 → SUATTDRO 15:47 → 2S 15:47

== ENCOUNTER 2021-03-24 18:28 | Inpatient (IN) ==
--- NOTE | 2021-03-24 20:07 | Emergency Department Note ---
History of Present Illness General Chief complaint: Groin Pain Stated complaint: PAINFUL LUMP NEAR GROIN Time Seen by Provider: 03/24/21 19:43 History of Present Illness Maximum Pain Intensity: 10 This is a 75-year-old female that presents to the emergency department via private vehicle with complaints of "painful lump near groin". The patient states that for the past 5 days she has been experiencing discomfort to the right groin region. She notes that this is just to the right and inferior aspect of the vagina. She feels like there is swelling tracking posterior towards the anus. She denies any known trauma or injury to the area. She notes that now there is swelling of which she is concerned about. It has significantly worsened over the past few days. She denies any fevers, chills or cough. She does note a history of rectal abscess in the ies but nothing recent. She notes that at rest pain currently 10/10 but to the touch is an 11/10. Home Medications Medication Instructions Recorded Confirmed Type lancets 30 gauge (WhisbiTouch Efrain #25 ea 11/24/18 12/25/20 History Lancets) ipratropium bromide 17 1 puffs INH TID PRN #12.9 gm 07/04/19 03/25/21 Rx mcg/actuation HFA aerosol inhaler (Atrovent HFA) atorvastatin 10 mg tablet 10 mg PO 3XWK #36 tab 09/17/20 03/25/21 Rx glimepiride 2 mg tablet 2 mg PO QAM 10/07/20 03/25/21 History miconazole nitrate 2 % topical 1 applic TOP BID PRN 10/07/20 03/25/21 History powder (Desenex) triamcinolone acetonide 0.1 % 1 appln TOP BID PRN 10/07/20 03/25/21 History topical ointment turmeric 400 mg capsule 400 mg PO DAILY 10/07/20 03/25/21 History venlafaxine 75 mg capsule,extended 225 mg PO QAM 10/07/20 03/25/21 History release 24 hr insulin glargine 100 unit/mL (3 30 unit SUBCUT QAM #15 ml 12/19/20 03/25/21 Rx mL) subcutaneous pen (Lantus Solostar U-100 Insulin) omeprazole 20 mg capsule,delayed 20 mg PO QAM #90 cap 01/14/21 03/25/21 Rx release dulaglutide 1.5 mg/0.5 mL See Rx Instructions .ROUTE 01/20/21 03/25/21 Rx subcutaneous pen injector .COMPLEX #2 ml (Trulicity) cetirizine 10 mg tablet (Zyrtec) 5 mg PO QAM PRN 02/24/21 03/25/21 History fluticasone fur. 200 mcg-umeclid 1 inh INHALATION QAM 02/24/21 03/25/21 History 62.5 mcg-vilant 25 mcg inhalat.powder (Trelegy Ellipta) hydrochlorothiazide 25 mg tablet 25 mg PO QAM 02/24/21 03/25/21 History oxybutynin chloride 10 mg 10 mg PO HS 02/24/21 03/25/21 History tablet,extended release 24 hr Allergies Allergy/AdvReac Type Severity Reaction Status Date / Time chocolate flavor Allergy Intermediate Headache Verified 03/25/21 00:58 erythromycin base Allergy Intermediate CONFUSION, Verified 03/25/21 00:58 HEADACHE nitrofurantoin Allergy Intermediate 15 Verified 03/25/21 00:58 different symptoms 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) Vertigo Surgical History History of appendectomy History of biopsy of temporal artery History of colonoscopy (~06/2010) History of dilation and curettage History of neurologic surgery rhizotomy History of total abdominal hysterectomy Reports KERRI-BSO S/P cholecystectomy S/P knee replacement Family History Family/Other Hypertension Diabetes Cancer Adopted Heart disease Grandmother Diabetes Heart disease Grandfather Heart disease Aunt Cancer Uncle Cancer Other No pertinent family history in first degree relatives Social History Smoking Status: Former smoker Hx Alcohol Use: No Hx Substance Use: No Preferred Language: Lebanese Communication Ability: Effective Data Quality Consultant Required: No Beliefs That Will Affect Care: None marital status: / Current Living Situation: Alone Current Living Situation Comment: pt has room at [facility] independent living pt to be moving within the month Feels Safe at Home: Yes Assistive Devices: Walker Review of Systems A total of 10 systems reviewed and were otherwise negative Physical Exam Vital Signs Vital Signs - 24 hr 03/24/21 19:04 03/24/21 20:33 03/24/21 22:14 Temperature 36.9 C Temperature Source Temporal Artery Scan Pulse Rate 84 Pulse Rate [Right Finger] 76 84 Respiratory Rate 20 20 20 Blood Pressure 145/80 H Blood Pressure [Right Arm] 151/76 H 124/88 Blood Pressure Mean 101 Blood Pressure Mean [Right Arm] 101 100 Pulse Oximetry 96 97 93 Oxygen Delivery Method Room Air Room Air Room Air Sepsis New/Unexplained Change in Mental Status N/A Sepsis Action Taken by Nursing No Action Required 03/25/21 00:22 Temperature Temperature Source Pulse Rate Pulse Rate [Right Finger] 88 Respiratory Rate 20 Blood Pressure Blood Pressure [Right Arm] 126/82 Blood Pressure Mean Blood Pressure Mean [Right Arm] 96 Pulse Oximetry 97 Oxygen Delivery Method Sepsis New/Unexplained Change in Mental Status Sepsis Action Taken by Nursing VITAL SIGNS - Vital signs and nursing notes were reviewed. Stable and afebrile. GENERAL -75-year-old female appearing her stated age who is in no acute distress. Communicates well with provider and answers questions appropriately. SKIN -with field support rep present examination of genitalia does reveal that there is what appears to be an abscess formation with surrounding edema and erythema to the soft tissue just inferior to the right labia majora. This does not appear to involve the rectal region. No evidence of perirectal abscess. No evidence of Bartholin's abscess. Estimation of the abscess that is fluctuant to palpation is approximately 3 cm in size. LUNGS - Chest wall symmetric without accessory muscle use, intercostals retractions, or central cyanosis. Normal vesicular breath sounds CTA B/L. No wheezes, rales, or rhonchi appreciated. CARDIAC - RRR with S1/S2. No murmur, rubs, or gallops appreciated. PSYCH - A&O, and cooperates fully with examiner. Pt is very pleasant and interacts well with examiner. Course Administered Medications Atorvastatin Calcium (Atorvastatin 10 Mg Tab) 10 mg PO MoWeFr@0900 [facility] Stop: 04/24/21 08:59 Last Admin: 03/25/21 08:27 Dose: 10 mg Documented by: [id number] Fluticasone Furoate (Fluticasone Furoate 100mcg 14 Puffs/Inhaler) 1 puffs INH QAM [facility]; Protocol Stop: 04/24/21 08:59 Last Admin: 03/25/21 08:28 Dose: 1 puffs Documented by: [id number] Piperacillin Sod/Tazobactam (Sod 4.5 gm/ Dextrose) 120 mls @ 30 mls/hr IV Q8H [facility]; Protocol Stop: 04/01/21 06:29 Last Admin: 03/25/21 08:28 Dose: 30 mls/hr Documented by: [id number] Insulin Aspart (Insulin Aspart 100 Units/Ml 3 Ml Pen) 0 units SC ACHS [facility] Stop: 04/24/21 07:29 Last Admin: 03/25/21 08:45 Dose: 11 units Documented by: [id number] Cosigned by: [id number] Insulin Glargine (Insulin Glargine Solostar 100 Units/Ml 3 Ml Pen) 30 units SQ QAM [facility] Stop: 04/24/21 08:59 Last Admin: 03/25/21 08:44 Dose: 30 units Documented by: [id number] Cosigned by: [id number] Pantoprazole Sodium (Pantoprazole 40 Mg Tab) 40 mg PO QAM [facility]; Protocol Stop: 04/24/21 08:59 Last Admin: 03/25/21 08:27 Dose: 40 mg Documented by: [id number] Umeclidinium/Vilanterol (Umeclidinium/Vilanterol 62.5/25mcg 7 Puffs/Inhaler) 1 puffs INH DAILY [facility]; Protocol Stop: 04/24/21 08:59 Last Admin: 03/25/21 08:28 Dose: 1 puffs Documented by: [id number] Venlafaxine HCl (Venlafaxine Hcl Xr 75 Mg Capxr) 225 mg PO QAM [facility] Stop: 04/24/21 08:59 Last Admin: 03/25/21 08:27 Dose: 225 mg Documented by: [id number] Discontinued Medications Fentanyl Citrate (Fentanyl Citrate 100 Mcg/2 Ml Vial) 100 mcg IV NOW STA Stop: 03/25/21 01:43 Last Admin: 03/25/21 02:10 Dose: 100 mcg Documented by: [id number] Piperacillin Sod/Tazobactam Sod (Zosyn) 4.5 gm in 120 mls @ 240 mls/hr IV NOW ONE Stop: 03/25/21 00:25 Last Infusion: 03/25/21 03:11 Dose: 0 mls/hr Documented by: [id number] Admin: 03/25/21 00:18 Dose: 240 mls/hr Documented by: [id number] Vancomycin HCl 2,750 mg/ (Sodium Chloride) 555 mls @ 180 mls/hr IV NOW ONE Stop: 03/25/21 09:34 Last Admin: 03/25/21 09:11 Dose: 180 mls/hr Documented by: [id number] Ioversol (Optiray 320 125ml) 121 ml IV ONCE ONE Stop: 03/24/21 22:00 Last Admin: 03/24/21 22:01 Dose: 121 ml Documented by: [id number] Lidocaine HCl (Xylocaine 1%/Sod Bicarb 20 Ml Vial) Confirm Administered Dose 20 ml INFIL .STK-MED ONE Stop: 03/25/21 01:41 Last Admin: 03/25/21 03:10 Dose: 20 ml Documented by: [id number] Lidocaine HCl (Xylocaine 1%/Sod Bicarb 20 Ml Vial) 20 ml INFIL NOW ONE Stop: 03/25/21 01:41 Last Admin: 03/25/21 03:10 Dose: Not Given Documented by: [id number] Ondansetron HCl (Ondansetron Inj 2 Mg/Ml 2 Ml Vial) 4 mg IV NOW STA Stop: 03/25/21 01:43 Last Admin: 03/25/21 03:11 Dose: Not Given Documented by: [id number] Medical Decision Making Laboratory Data Result diagrams: 03/24/21 20:35 03/24/21 20:35 Lab Results 03/24/21 03/24/21 03/25/21 Range/Units 20:35 20:35 00:10 WBC 11.32 H (4.8-10.8) K/uL RBC 4.74 (4.2-5.4) M/uL Hgb 14.0 (12.0-16.0) g/dL Hct 41.7 (37-47) % MCV 88.0 (80-100) fL MCH 29.5 (25-34) pg MCHC 33.6 (32-36) g/dL RDW Std Deviation 43.8 (36.4-46.3) fL RDW Coeff of Iman 13.5 (11.5-14.5) % Plt Count 232 (130-400) K/uL MPV 10.5 H (7.4-10.4) fL Immature Gran % (Auto) 0.5 % Neut % (Auto) 62.2 % Lymph % (Auto) 26.9 % [place] % (Auto) 7.9 % Eos % (Auto) 2.3 % Baso % (Auto) 0.2 % Neut # (Auto) 7.05 H (1.4-6.5) K/uL Lymph # (Auto) 3.04 (1.2-3.4) K/uL [place] # (Auto) 0.89 H (0.11-0.59) K/uL Eos # (Auto) 0.26 (0-0.5) K/uL Baso # (Auto) 0.02 (0-0.2) K/uL Immature Gran # (Auto) 0.06 H (0.00-0.02) K/uL Sodium 137 (136-145) mmol/L Potassium 3.7 (3.5-5.1) mmol/L Chloride 101 (98-107) mmol/L Carbon Dioxide 27 (21-32) mmol/L Anion Gap 9.0 (3-11) BUN 18 (7-18) mg/dl Creatinine 0.95 (0.6-1.2) mg/dl Est Cr Clr Drug Dosing 76.6 ml/min Est GFR ( Amer) 67.9 ml/min Est GFR (Non-Af Amer) 58.6 ml/min BUN/Creatinine Ratio 18.5 (10-20) Glucose 235 H (70-99) mg/dl POC Glucose (70-99) mg/dl Calcium 8.7 (8.5-10.1) mg/dl Total Bilirubin 0.3 (0.2-1) mg/dl AST 8 L (15-37) U/L ALT 15 (12-78) U/L Alkaline Phosphatase 118 H (45-117) U/L Total Protein 7.9 (6.4-8.2) gm/dl Albumin 2.9 L (3.4-5.0) gm/dl Globulin 5.0 H (2.5-4.0) gm/dl Albumin/Globulin Ratio 0.6 L (0.9-2) SARS-CoV-2, RNA, NAAT NEGATIVE (NEGATIVE) 03/25/21 Range/Units 00:30 WBC (4.8-10.8) K/uL RBC (4.2-5.4) M/uL Hgb (12.0-16.0) g/dL Hct (37-47) % MCV (80-100) fL MCH (25-34) pg MCHC (32-36) g/dL RDW Std Deviation (36.4-46.3) fL RDW Coeff of Iman (11.5-14.5) % Plt Count (130-400) K/uL MPV (7.4-10.4) fL Immature Gran % (Auto) % Neut % (Auto) % Lymph % (Auto) % [place] % (Auto) % Eos % (Auto) % Baso % (Auto) % Neut # (Auto) (1.4-6.5) K/uL Lymph # (Auto) (1.2-3.4) K/uL [place] # (Auto) (0.11-0.59) K/uL Eos # (Auto) (0-0.5) K/uL Baso # (Auto) (0-0.2) K/uL Immature Gran # (Auto) (0.00-0.02) K/uL Sodium (136-145) mmol/L Potassium (3.5-5.1) mmol/L Chloride (98-107) mmol/L Carbon Dioxide (21-32) mmol/L Anion Gap (3-11) BUN (7-18) mg/dl Creatinine (0.6-1.2) mg/dl Est Cr Clr Drug Dosing ml/min Est GFR ( Amer) ml/min Est GFR (Non-Af Amer) ml/min BUN/Creatinine Ratio (10-20) Glucose (70-99) mg/dl POC Glucose 148 H (70-99) mg/dl Calcium (8.5-10.1) mg/dl Total Bilirubin (0.2-1) mg/dl AST (15-37) U/L ALT (12-78) U/L Alkaline Phosphatase (45-117) U/L Total Protein (6.4-8.2) gm/dl Albumin (3.4-5.0) gm/dl Globulin (2.5-4.0) gm/dl Albumin/Globulin Ratio (0.9-2) SARS-CoV-2, RNA, NAAT (NEGATIVE) Imaging Data Radiologist's Impression: Abdomen/Pelvis CT 03/24/21 20:05 CT abd pelvis IV con only CLINICAL HISTORY: R genital edema, erythema, pain to anus COMPARISON STUDY: 11/19/2016 CT DOSE: 1297.09 mGy.cm TECHNIQUE: Standard CT of the Abdomen and Pelvis was performed with IV contrast. A dose lowering technique was utilized adhering to the principles of ALARA. Contrast Volume: Optiray 320, 121 ml. The patient did not receive oral contrast. FINDINGS: Lung base: The lung bases are clear. There is a prominent levoscoliotic curve of the thoracic spine which displaces the heart and mediastinal structures to the left. The heart size is within normal limits without evidence for cardiac pacer. Abdominal cavity: There is no evidence for abdominal mass, adenopathy or ascites. There is no evidence for a perirectal abscess. However, there is a thick-walled enhancing fluid collection seen within the right buttocks cheek at the crease of the buttocks below the anus measuring approximately 3.2 x 2.9 cm. This is characteristic of a small abscess. There is adjacent skin thickening and edema of the subcutaneous fat representing cellulitis as well. Liver: There is homogeneous attenuation of the liver parenchyma. There is no evidence for enhancing mass lesion. Spleen: There is homogeneous attenuation of the splenic parenchyma. There is no enhancing mass lesion. Pancreas: There is homogeneous attenuation of the pancreatic parenchyma. There is no evidence for mass lesion or peripancreatic fluid collection. Gall Bladder: Surgical clips are present from previous cholecystectomy. Adrenal glands: The adrenal glands are normal in size and attenuation. There is no evidence for enhancing mass lesion. Kidneys: There is homogeneous attenuation of the renal parenchyma bilaterally. There is no evidence for renal calculus or hydronephrosis. There is no evidence for enhancing mass. Bowel: The bowel loops are normally placed within the abdomen and pelvis without evidence for dilatation or obstruction. However, there is mild fecal stasis particularly in the rectosigmoid region without significant impaction or obstruction. There is also mild sigmoid diverticulosis without evidence for diverticulitis. There are no inflammatory changes present. There is no evidence for free air. The appendix is not visualized. Bladder: The bladder is within normal limits with no evidence for focal mass, calculus or diverticulum. Contrast layers in the dependent portion of bladder on delayed imaging. : There is no evidence for pelvic mass or adenopathy. There is no evidence for pelvic ascites. The patient is status post hysterectomy. Vasculature: There is no evidence for aneurysmal dilatation of the abdominal aorta. Mild atherosclerotic calcification is present. Osseous structures: There is no acute osseous pathology. Extensive degenerative changes are seen within the lower lumbar spine. IMPRESSION: 1. Thick-walled enhancing abscess within the medial right buttocks cheek inferior to the anus with no evidence for perirectal abscess. 2. There is associated skin thickening and cellulitis of the adjacent right buttocks. 3. Mild fecal stasis without evidence for impaction or obstruction. 4. Mild sigmoid diverticulosis. 5. Additional nonacute findings are delineated above. ACT 112: Negative or not required by law. Electronically signed by: Jericho Pruett M.D. 03/25/2021 7:01 AM ADDENDUM - Added by Tigre Alan MD on 03/25/2021 1:40 AM (-08:00) Addendum: Additional images are performed of the perineum. There is a 2.4 cm subcutaneous abscess in the right labial pannus with surrounding edema consistent with cellulitis. This does not extend up into the perirectal fat plane. CT ABDOMEN & PELVIS With Contrast: Comparison to November 19, 2016. Constipation with a 8.2 cm of stool in the rectum. There is diverticulosis of the sigmoid colon. No focal acute diverticulitis is identified. No pneumoperitoneum or free fluid. There is a gas fluid level within the urinary bladder. Correlate with history of recent catheterization versus UTI. I do not see an inflammatory process between the urinary bladder and colon to suggest colovesicular fistula. Previous hysterectomy. No free fluid is seen in the pelvis. Previous cholecystectomy. No biliary duct dilation is seen. The liver is enlarged measuring 20.6 cm. No focal liver lesion is seen. The pancreas, spleen, adrenal glands, and kidneys are within normal limits. The aorta is nondilated. Moderate degenerative changes in lower lumbar spine. No acute fracture or subluxation is seen. Radiologist: Tigre Alan MD Study ready at 22:57 and initial results transmitted at 01:17 [facility] Narrative Patient was seen and evaluated as above in room D09. Review was performed of [facility] nursing notes and vital signs. After obtaining a thorough history and physical examination the above work up was performed. Patient presents to us today with pain just inferior to the genitalia. She has what appears to be on examination with female field support rep at bedside to be that of an abscess developing to the soft tissues just inferior to the right labia majora. Vital signs stable. Options of care were discussed with the patient. IV access was established. Labs were drawn. Mild leukocytosis 11.32. No anemia. Hyperglycemia noted. Patient initially declined IV analgesics however she did note that she would appreciate fentanyl prior to the procedure. Patient was given 50 mcg of fentanyl prior to the procedure to help with pain. Patient's oxygen was monitored after she was given the fentanyl. No hypoxia noted. Then towards the end of the procedure the patient did have some additional minor discomfort and was given another 50 mcg of fentanyl. Patient tolerated this well without any adverse reaction. Please refer to the procedure note below. A CT scan was obtained prior to performing the I&D to confirm involvement. CT scan results as above. This does comment on the clinically correlated 2.4 cm subcutaneous abscess in the right labial pannus with surrounding edema. This does not extend up into the perirectal fat plane which I would agree with clinically. Verbal consent was obtained to perform the I&D procedure. Procedure performed in the presence of female RN. A thoroughly discussed benefits and risks with the patient. After saline and Betadine cleansing and 2 mL of 1% buffered lidocaine anesthesia, the abscess was gently incised with a number 11 scalpel blade. A large amount of purulent/dark red consistent with old blood and a small amount of darkish material was released with more expressed by pressure. Care was taken so as to not traverse into any deeper regions. A swab was obtained for culture. The abscess cavity was further probed with a needle uke driver and the deep pocket expressed. The abscess cavity was then copiously irrigated with sterile saline under pressure. The area was then packed with sterile packing. The area was cleaned with sterile saline and dressed with an ABD pad. The patient tolerated the procedure well. The patient also appears to be experiencing a UTI and she is incontinent of urine which is not new. She notes urinary incontinence for about 5 years now. A Rodriguez catheter was placed prior to the I&D procedure. Urine sent for evaluation. Covid testing negative. Patient covered with IV Zosyn for the infection. Patient will be admitted for further evaluation and management. I do believe that she would benefit from IV antibiotics here in the hospital at least in the short-term. Patient amenable to plan of care. While in the department, I personally reevaluated the patient several times and each time the patient was found to be resting comfortably. Case was discussed with the attending physician. GCS: 15 In the evaluation and treatment of this patient the following differential diagnoses were entertained: Perirectal abscess, labial abscess, Bartholin's abscess, Guanaco's gangrene, necrotic tissue, abscess, cellulitis, among others Attending Attestation: I Tigre Lawrence MD independently saw and evaluated this patient and agree with history and physical is otherwise documented by the physician care team assistant. See their note for full details. Patient resting in bed in no distress with a soft abdomen. Reports pain in groin area with movement and lump by groin. Labs noted. Ct scan ordered to exclude deeper infection. Zosyn given. I&D attempt by PA & cultures sent. Given age and pain with movement and thus ambulation hospitalist to eval for observation. Impression & Plan Subcutaneous abscess, Cellulitis of female genitalia Discharge Plan Visit Data Chief Complaint: Groin Pain Stated Complaint: PAINFUL LUMP NEAR GROIN ED Provider: Tigre Lawrence ED Midlevel Provider: Kailash Carter Discharge Problem: Subcutaneous abscess, Cellulitis of female genitalia Patient Disposition: Admitted As Inpatient Condition: Good Discharge Instructions Interventions: ED Discharge Assessment Last Done: 03/25/21 04:53
[2021-03-24 20:47] LABS: Basophils # (auto) 0.02 K/uL (0-0.2); Basophils % (auto) 0.2 %; Eosinophils # (auto) 0.26 K/uL (0-0.5); Eosinophils % (auto) 2.3 %; Hematocrit (blood only) 41.7 % (37-47); Immature Granulocytes # (auto) 0.06 K/uL (0.00-0.02); Immature Granulocytes % (auto) 0.5 %; Lymphocytes # (auto) 3.04 K/uL (1.2-3.4); Lymphocytes % (auto) 26.9 %; Mean Corpuscular Hemoglobin 29.5 pg (25-34); Mean Corpuscular Hgb Conc 33.6 g/dL (32-36); Mean Platelet Volume 10.5 fL (7.4-10.4); Monocytes # (auto) 0.89 K/uL (0.11-0.59); Monocytes % (auto) 7.9 %; Neutrophils # (auto) 7.05 K/uL (1.4-6.5); Neutrophils % (auto) 62.2 %; Platelet Count 232 K/uL (130-400); RDW Coefficient of Variation 13.5 % (11.5-14.5); RDW Standard Deviation 43.8 fL (36.4-46.3); Red Blood Count 4.74 M/uL (4.2-5.4); White Blood Count 11.32 K/uL (4.8-10.8)
[2021-03-24 21:11] LABS: Albumin Level 2.9 gm/dl (3.4-5.0); BUN Creatinine Ratio 18.5 (10-20); Calcium 8.7 mg/dl (8.5-10.1); Creatinine Clr Calc Pharmacy 76.6 ml/min; Est GFR (African American) 67.9 ml/min; Est GFR (Non-African American) 58.6 ml/min; Potassium 3.7 mmol/L (3.5-5.1)
[2021-03-24 21:14] LABS: Albumin Globulin Ratio 0.6 (0.9-2); Bilirubin,Total 0.3 mg/dl (0.2-1); Total Protein 7.9 gm/dl (6.4-8.2)
[2021-03-24] MEDS ORDERED: OPTIRAY 320 125ml IV ONE (21:59)
[2021-03-24] MEDS ORDERED: PIPERACILLIN/TAZOBACTAM 4.5 GM/120 ML BAG IV ONE (23:56)
[2021-03-24] MEDS ORDERED: PIPERACILL/TAZOBAC CONSULT ACTIVE PRN (23:56)
--- NOTE | 2021-03-25 01:33 | History & Physical Report ---
Date of Service March 25, 2021 Assessment & Plan (1) Subcutaneous abscess: Plan: Subcutaneous abscess/cellulitis of female genitalia- Status post I&D by the ED staff Follow fluid culture and sensitivities Vancomycin IV and Zosyn IV per pharmacokinetic monitoring Consult to [employer] versus general surgery in a.m. (2) Cellulitis of female genitalia: Plan: See above (3) Diabetes: Plan: Diabetes mellitus- Continue glargine 30 units subcu every morning Hold glimepiride and dulaglutide Place on Accu-Cheks before meals and at bedtime with NovoLog coverage per scale (4) Mild obstructive sleep apnea: Plan: CPAP at bedtime as needed (5) Chronic kidney disease, stage III (moderate): Plan: Creatinine stable at 0.95 upon admission (6) GERD (gastroesophageal reflux disease): Plan: Continue omeprazole/pantoprazole (7) COPD (chronic obstructive pulmonary disease): Plan: Continue Trelegy Ellipta (8) HTN (hypertension): Plan: Hold HCTZ (9) Pacemaker: Plan: Noted (10) Hyperlipidemia: Plan: Continue atorvastatin (11) Anxiety with depression: Plan: Continue venlafaxine History of Present Illness Chief Complaint: The patient presents to the emergency department with complaint of a painful lump near her left groin region that has been worsening over the past 5 days Primary Care Provider: Ty Obando MD The patient is a 75-year-old female with a past medical history occluding COPD, COVID-19, urinary incontinence, diabetes mellitus, first-degree heart block, anxiety, atrial paroxysmal tachycardia, left anterior fascicular block, mild ANJALI, morbid obesity, CKD stage III, depression, GERD, COPD, hypertension and pacemaker. She presents with symptoms as noted above. Allergies Allergy/AdvReac Type Severity Reaction Status Date / Time chocolate flavor Allergy Intermediate Headache Verified 03/25/21 00:58 erythromycin base Allergy Intermediate CONFUSION, Verified 03/25/21 00:58 HEADACHE nitrofurantoin Allergy Intermediate 15 Verified 03/25/21 00:58 different symptoms Home Medications Medication Instructions Recorded Confirmed Type lancets 30 gauge (OptionEaseuch Delgage #25 ea 11/24/18 12/25/20 History Lancets) ipratropium bromide 17 1 puffs INH TID PRN #12.9 gm 07/04/19 03/25/21 Rx mcg/actuation HFA aerosol inhaler (Atrovent HFA) atorvastatin 10 mg tablet 10 mg PO 3XWK #36 tab 09/17/20 03/25/21 Rx glimepiride 2 mg tablet 2 mg PO QAM 10/07/20 03/25/21 History miconazole nitrate 2 % topical 1 applic TOP BID PRN 10/07/20 03/25/21 History powder (Desenex) triamcinolone acetonide 0.1 % 1 appln TOP BID PRN 10/07/20 03/25/21 History topical ointment turmeric 400 mg capsule 400 mg PO DAILY 10/07/20 03/25/21 History venlafaxine 75 mg capsule,extended 225 mg PO QAM 10/07/20 03/25/21 History release 24 hr insulin glargine 100 unit/mL (3 30 unit SUBCUT QAM #15 ml 12/19/20 03/25/21 Rx mL) subcutaneous pen (Lantus Solostar U-100 Insulin) omeprazole 20 mg capsule,delayed 20 mg PO QAM #90 cap 01/14/21 03/25/21 Rx release dulaglutide 1.5 mg/0.5 mL See Rx Instructions .ROUTE 01/20/21 03/25/21 Rx subcutaneous pen injector .COMPLEX #2 ml (Trulicity) cetirizine 10 mg tablet (Zyrtec) 5 mg PO QAM PRN 02/24/21 03/25/21 History fluticasone fur. 200 mcg-umeclid 1 inh INHALATION QAM 02/24/21 03/25/21 History 62.5 mcg-vilant 25 mcg inhalat.powder (Trelegy Ellipta) hydrochlorothiazide 25 mg tablet 25 mg PO QAM 02/24/21 03/25/21 History oxybutynin chloride 10 mg 10 mg PO HS 02/24/21 03/25/21 History tablet,extended release 24 hr Past Med/Surg History Medical History (Updated 03/25/21 @ 04:26 by Austin Billy MD) Anxiety with depression Candidal intertrigo Cheilitis Chronic respiratory failure with hypoxia, on home O2 therapy History of renal stent Hyperlipidemia Nephrolithiasis Pacemaker Panniculitis Proctitis Pyelonephritis Rectal abscess Renal colic Syncope and collapse (06/03/13) 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) Vertigo Surgical History History of appendectomy History of biopsy of temporal artery History of colonoscopy (~06/2010) History of dilation and curettage History of neurologic surgery rhizotomy History of total abdominal hysterectomy S/P cholecystectomy S/P knee replacement Family History Family/Other Hypertension Diabetes Cancer Adopted Heart disease Grandmother Diabetes Heart disease Grandfather Heart disease Aunt Cancer Uncle Cancer Other No pertinent family history in first degree relatives Social History Smoking Status: Former smoker Hx Alcohol Use: No Hx Substance Use: No Preferred Language: Mauritanian Communication Ability: Effective [employer] 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 Required: No Beliefs That Will Affect Care: None marital status: Single Current Living Situation: Alone Current Living Situation Comment: pt has room at [facility] living pt to be moving within the month Feels Safe at Home: Yes Safety Concerns: Feels Safe At This Time Assistive Devices: Walker Review of Systems Review of Systems: The patient denies chest pain, palpitations, shortness of breath, dyspnea on exertion, cough, sore throat, fevers, chills, sweats, weight change, fatigue, nausea, vomiting, diarrhea , constipation, abdominal pain, blood in urine or stool, dysuria, urinary frequency or urgency, lightheadedness, dizziness, headache, memory loss, loss of consciousness, imbalance, focal or generalized weakness, numbness or tingling in arms or legs, generalized arthralgias or myalgias, back or neck pain, or night sweats. The review of systems is otherwise negative other than for that already noted above, and at least 10 systems have been reviewed. Physical Exam Physical Exam: The patient is awake, alert and oriented 3, well developed and well nourished, normocephalic and atraumatic, lying in bed and in no acute distress. HEENT--PERRL, EOMI, mucous membranes and oropharynx normal. Neck--supple. No JVD. No bruits. Thyroid normal, trachea midline, no adenopathy. Heart--normal S1 and S2. No murmurs, rubs or gallops. Lungs--clear bilaterally, no respiratory distress, no accessory muscle use. Abdomen--normal bowel sounds and soft. Nontender. Nondistended. Obese Extremities--no cyanosis or clubbing. No edema. There are good distal pulses b/l. Dermatologic--abscess formation with surrounding erythema and edema inferior to the right labia majora not involving rectal region Neurologic--cranial nerves II through XII grossly intact. Rheumatologic--normal range of motion. Psychiatric--normal affect. Results & Data Results & Data ([facility]) Vital Signs (Past 12 Hours) Vital Signs Temp Pulse Pulse Resp BP BP Pulse Ox 03/25/21 00:22 88 20 126/82 97 03/24/21 22:14 84 20 124/88 93 03/24/21 20:33 76 20 151/76 H 97 03/24/21 19:04 36.9 C 84 20 145/80 H 96 Laboratory Results Laboratory Results WBC 11.32 K/uL (4.8-10.8) H 03/24/21 20:35 RBC 4.74 M/uL (4.2-5.4) 03/24/21 20:35 Hgb 14.0 g/dL (12.0-16.0) 03/24/21 20:35 Hct 41.7 % (37-47) 03/24/21 20:35 MCV 88.0 fL (80-100) 03/24/21 20:35 MCH 29.5 pg (25-34) 03/24/21 20:35 MCHC 33.6 g/dL (32-36) 03/24/21 20:35 RDW Std Deviation 43.8 fL (36.4-46.3) 03/24/21 20:35 RDW Coeff of Iman 13.5 % (11.5-14.5) 03/24/21 20:35 Plt Count 232 K/uL (130-400) 03/24/21 20:35 MPV 10.5 fL (7.4-10.4) H 03/24/21 20:35 Immature Gran % (Auto) 0.5 % 03/24/21 20:35 Neut % (Auto) 62.2 % 03/24/21 20:35 Lymph % (Auto) 26.9 % 03/24/21 20:35 Huron % (Auto) 7.9 % 03/24/21 20:35 Eos % (Auto) 2.3 % 03/24/21 20:35 Baso % (Auto) 0.2 % 03/24/21 20:35 Neut # (Auto) 7.05 K/uL (1.4-6.5) H 03/24/21 20:35 Lymph # (Auto) 3.04 K/uL (1.2-3.4) 03/24/21 20:35 Huron # (Auto) 0.89 K/uL (0.11-0.59) H 03/24/21 20:35 Eos # (Auto) 0.26 K/uL (0-0.5) 03/24/21 20:35 Baso # (Auto) 0.02 K/uL (0-0.2) 03/24/21 20:35 Immature Gran # (Auto) 0.06 K/uL (0.00-0.02) H 03/24/21 20:35 Sodium 137 mmol/L (136-145) 03/24/21 20:35 Potassium 3.7 mmol/L (3.5-5.1) 03/24/21 20:35 Chloride 101 mmol/L (98-107) 03/24/21 20:35 Carbon Dioxide 27 mmol/L (21-32) 03/24/21 20:35 Anion Gap 9.0 (3-11) 03/24/21 20:35 BUN 18 mg/dl (7-18) 03/24/21 20:35 Creatinine 0.95 mg/dl (0.6-1.2) 03/24/21 20:35 Est Cr Clr Drug Dosing 76.6 ml/min 03/24/21 20:35 Est GFR ( Amer) 67.9 ml/min 03/24/21 20:35 Est GFR (Non-Af Amer) 58.6 ml/min 03/24/21 20:35 BUN/Creatinine Ratio 18.5 (10-20) 03/24/21 20:35 Glucose 235 mg/dl (70-99) H 03/24/21 20:35 POC Glucose 148 mg/dl (70-99) H 03/25/21 00:30 Calcium 8.7 mg/dl (8.5-10.1) 03/24/21 20:35 Total Bilirubin 0.3 mg/dl (0.2-1) 03/24/21 20:35 AST 8 U/L (15-37) L 03/24/21 20:35 ALT 15 U/L (12-78) 03/24/21 20:35 Alkaline Phosphatase 118 U/L (45-117) H 03/24/21 20:35 Total Protein 7.9 gm/dl (6.4-8.2) 03/24/21 20:35 Albumin 2.9 gm/dl (3.4-5.0) L 03/24/21 20:35 Globulin 5.0 gm/dl (2.5-4.0) H 03/24/21 20:35 Albumin/Globulin Ratio 0.6 (0.9-2) L 03/24/21 20:35 Urine Color Yellow 03/25/21 Unknown Urine Appearance Turbid (Clear) A 03/25/21 Unknown Urine pH 7.5 (4.5-7.5) 03/25/21 Unknown Ur Specific Peterson 1.015 (1.000-1.030) 03/25/21 Unknown Urine Protein 1+ (Negative) H 03/25/21 Unknown Urine Glucose (UA) Negative (Negative) 03/25/21 Unknown Urine Ketones Negative (Negative) 03/25/21 Unknown Urine Blood 2+ (Negative) H 03/25/21 Unknown Urine Nitrite Positive (Negative) A 03/25/21 Unknown Urine Bilirubin Negative (Negative) 03/25/21 Unknown Urine Urobilinogen Negative (Negative) 03/25/21 Unknown Ur Leukocyte Esterase 3+ (Negative) H 03/25/21 Unknown SARS-CoV-2, RNA, NAAT NEGATIVE (NEGATIVE) 03/25/21 00:10 Diagnostic Findings [facility] Patient: PAPA KELLY (Female) : 45 Status: ER Date: 03/24/21 22:52 Room #: History: RLQ PAIN Slices: [id number] Priors: Tech: Kimberly Carvalho @ [phone] Exams: CT ABDOMEN & PELVIS With Contrast Contrast: IV Amt: 120 ML OPTIRAY 320 Accession Numbers: [id number] Referring Physician: REFERRED SELF Preliminary Findings Only See Final Report For Complete Findings ADDENDUM - Added by Tigre Alan MD on 03/25/2021 1:40 AM (-08:00) Addendum: Additional images are performed of the perineum. There is a 2.4 cm subcutaneous abscess in the right labial pannus with surrounding edema consistent with cellulitis. This does not extend up into the perirectal fat plane. CT ABDOMEN & PELVIS With Contrast: Comparison to November 19, 2016. Constipation with a 8.2 cm of stool in the rectum. There is diverticulosis of the sigmoid colon. No focal acute diverticulitis is identified. No pneumoperitoneum or free fluid. There is a gas fluid level within the urinary bladder. Correlate with history of recent catheterization versus UTI. I do not see an inflammatory process between the urinary bladder and colon to suggest colovesicular fistula. Previous hysterectomy. No free fluid is seen in the pelvis. Previous cholecystectomy. No biliary duct dilation is seen. The liver is enlarged measuring 20.6 cm. No focal liver lesion is seen. The pancreas, spleen, adrenal glands, and kidneys are within normal limits. The aorta is nondilated. Moderate degenerative changes in lower lumbar spine. No acute fracture or subluxation is seen. Radiologist: Tigre Alan MD Study ready at 22:57 and initial results transmitted at 01:17 Communications: Loco CobosA Type Notes 03/25/21 01:36 Call From [facility] Dr. Spencer mead on 03/25 01:27 (-05:00) *This report constitutes a preliminary interpretation only. Non-acute findings felt to be unrelated to the clinical presentation may not be discussed in this report. The study will be interpreted and a final report will be generated by the local Radiologist the following shift. To reach the hospital radiology department call [phone]. If a discrepancy is found between the preliminary and final interpretations of this study, please notify us via our Client Portal at [email or web address], under QA Exams. You can also fax this report with a description of the discrepancy, or include the final report, to our daytime fax number [phone]. If faxing, please indicate the severity of discrepancy using one of the following categories: [ ] 1 - Agree/Informational [ ] 2 - Unlikely to Affect Management [ ] 3 - Possible Eventual Change of Management [ ] 4 - Probable Immediate Change of Management For all other patient related information, please fax us at [phone]. [id number] Code Status & VTE Plan Code Status Full code VTE Prophylaxis Plan VTE Prophylaxis will be ordered: Yes PG Care Time/CCT Total # of Minutes Spent Total Time Spent with Patient: Total time spent is greater than 50% in coordination of care (as documented) at patient's floor/unit and/or counseling patient: Coding Level of Care Code 82014 Initial Inpt Care Lvl 3 Diagnoses Subcutaneous abscess L02.91 Cellulitis of female genitalia N76.4 Diabetes E11.9 Mild obstructive sleep apnea G47.33 Chronic kidney disease, stage III (moderate) N18.3 GERD (gastroesophageal reflux disease) K21.9 COPD (chronic obstructive pulmonary disease) J44.9 HTN (hypertension) I10 Pacemaker Z95.0 Hyperlipidemia E78.5 Anxiety with depression F41.8
[2021-03-25] MEDS ORDERED: XYLOCAINE 1%/SOD BICARB 20 ML VIAL INFIL ONE ×2 (01:40)
[2021-03-25] MEDS ORDERED: fentaNYL citrate 100 MCG/2 ML VIAL IV STA (01:42)
[2021-03-25] MEDS ORDERED: ONDANSETRON INJ 2 MG/ML 2 ML VIAL IV STA (01:42)
[2021-03-25 04:14] LABS: Appearance Urine Turbid (Clear); Bilirubin Urine Negative (Negative); Blood Urine 2+ (Negative); Color Urine Yellow; Glucose Urine UA Negative (Negative); Ketones Urine Negative (Negative); Leukocyte Esterase Urine 3+ (Negative); Nitrite Urine Positive (Negative); Protein Urine 1+ (Negative); Specific Gravity Urine 1.015 (1.000-1.030); Urobilinogen Urine Negative (Negative); pH Urine 7.5 (4.5-7.5)
[2021-03-25 04:32] LABS: WBC Urine >30 /hpf (0-5)
[2021-03-25 04:33] LABS: Bacteria Urine 4+ (Negative); Epithelial Cell Urine >30 /lpf (0-5)
[2021-03-25] MEDS ORDERED: CARBOHYDRATES FOR HYPOGLYCEMIA PO PRN (05:13)
[2021-03-25] MEDS ORDERED: GLUCOSE 10 TABS/TUBE PO PRN (05:13)
[2021-03-25] MEDS ORDERED: GLUCAGON FOR INJ 1 MG VIAL SQ PRN (05:13)
[2021-03-25] MEDS ORDERED: DEXTROSE 50% 50 ML SYRINGE IV PRN (05:13)
[2021-03-25] MEDS ORDERED: CETIRIZINE HCL 10 MG TABLET PO PRN (05:13)
[2021-03-25] MEDS ORDERED: VANCOMYCIN HCL 1,000 MG in SODIUM CHLORIDE 0.9% 250 ML IV SCH (05:13)
[2021-03-25] MEDS ORDERED: GLUCOSE 40% GEL 15 GM TUBE PO PRN (05:13)
[2021-03-25] MEDS ORDERED: VANCOMYCIN CONSULT ACTIVE PRN (05:13)
[2021-03-25] MEDS ORDERED: PIPERACILL/TAZOBAC CONSULT ACTIVE PRN (05:13)
[2021-03-25] MEDS ORDERED: VANCOMYCIN HCL 2,750 MG in SODIUM CHLORIDE 0.9% 500 ML IV ONE (06:30)
--- NOTE | 2021-03-25 07:02 | CT Scan Report ---
CT abd pelvis IV con only CLINICAL HISTORY: R genital edema, erythema, pain to anus COMPARISON STUDY: 11/19/2016 CT DOSE: 1297.09 mGy.cm TECHNIQUE: Standard CT of the Abdomen and Pelvis was performed with IV contrast. A dose lowering mandy hnique was utilized adhering to the principles of ALARA. Contrast Volume: Optiray 320, 121 ml. The patient did not receive oral contrast. FINDINGS: Lung base: The lung bases are clear. There is a prominent levoscoliotic curve of the thoracic spine w hich displaces the heart and mediastinal structures to the left. The heart size is within normal limi ts without evidence for cardiac pacer. Abdominal cavity: There is no evidence for abdominal mass, adenopathy or ascites. There is no evidence for a perirectal abscess. However, there is a thick-walled enhancing fluid colle ction seen within the right buttocks cheek at the crease of the buttocks below the anus measuring batool roximately 3.2 x 2.9 cm. This is characteristic of a small abscess. There is adjacent skin thickening and edema of the subcutaneous fat representing cellulitis as well. Liver: There is homogeneous attenuation of the liver parenchyma. There is no evidence for enhancing m ass lesion. Spleen: There is homogeneous attenuation of the splenic parenchyma. There is no enhancing mass lesion . Pancreas: There is homogeneous attenuation of the pancreatic parenchyma. There is no evidence for mas s lesion or peripancreatic fluid collection. Gall Bladder: Surgical clips are present from previous cholecystectomy. Adrenal glands: The adrenal glands are normal in size and attenuation. There is no evidence for enhan cing mass lesion. Kidneys: There is homogeneous attenuation of the renal parenchyma bilaterally. There is no evidence f or renal calculus or hydronephrosis. There is no evidence for enhancing mass. Bowel: The bowel loops are normally placed within the abdomen and pelvis without evidence for dilatat ion or obstruction. However, there is mild fecal stasis particularly in the rectosigmoid region witho ut significant impaction or obstruction. There is also mild sigmoid diverticulosis without evidence f or diverticulitis. There are no inflammatory changes present. There is no evidence for free air. The appendix is not visualized. Bladder: The bladder is within normal limits with no evidence for focal mass, calculus or diverticulu m. Contrast layers in the dependent portion of bladder on delayed imaging. : There is no evidence for pelvic mass or adenopathy. There is no evidence for pelvic ascites. The patient is status post hysterectomy. Vasculature: There is no evidence for aneurysmal dilatation of the abdominal aorta. Mild atherosclero tic calcification is present. Osseous structures: There is no acute osseous pathology. Extensive degenerative changes are seen with in the lower lumbar spine. IMPRESSION: 1. Thick-walled enhancing abscess within the medial right buttocks cheek inferior to the anus with no evidence for perirectal abscess. 2. There is associated skin thickening and cellulitis of the adjacent right buttocks. 3. Mild fecal stasis without evidence for impaction or obstruction. 4. Mild sigmoid diverticulosis. 5. Additional nonacute findings are delineated above. ACT 112: Negative or not required by law. Electronically signed by: Jericho Pruett M.D. 03/25/2021 7:01 AM
[2021-03-25] MEDS: VENLAFAXINE HCL XR 75 MG CAPXR PO SCH (08:27)
[2021-03-25] MEDS: PANTOprazole 40 MG TAB PO SCH (08:27)
[2021-03-25] MEDS: ATORVASTATIN 10 MG TAB PO SCH (08:27)
[2021-03-25] MEDS: UMECLIDINIUM/VILANTEROL 62.5/25MCG 7 PUFFS/INHALER INH SCH (08:28)
[2021-03-25] MEDS: FLUTICASONE FUROATE 100MCG 14 PUFFS/INHALER INH SCH (08:28)
[2021-03-25] MEDS: PIPERACILLIN/TAZOBACTAM 4.5 GM in DEXTROSE 5% 100 ML IV SCH ×3 (08:28→22:28)
[2021-03-25] MEDS: INSULIN ASPART 100 UNITS/ML 3 ML PEN SC SCH ×4 (08:45→21:17)
[2021-03-25] MEDS ORDERED: INSULIN GLARGINE SOLOSTAR 100 UNITS/ML 3 ML PEN SQ SCH (09:00)
[2021-03-25] MEDS ORDERED: ATORVASTATIN 10 MG TAB PO SCH (09:00)
--- NOTE | 2021-03-25 09:51 | OB/GYN Consultation ---
Date of Consultation March 25, 2021 Assessment & Plan (1) Subcutaneous abscess: (2) Cellulitis of female genitalia: Based on my exam, this does not appear to be a Bartholin's abscess and seems more to be in the buttock itself, consistent with prior imaging. I do not palpate extension into the labia or vagina so would recommend general surgery evaluation at this time. Primary team made aware of recommendations, but please do not hesitate to contact us if any future concerns History of Present Illness Reason for Consultation: Concern for bartholin's abscess Requesting Physician: CHECO [facility]in/hospitalist team Attending Physician: Bobby Thurman MD History of Present Illness 75 y/o s/p KERRI-BSO in her 30s w/ multiple comorbidities admitted to hospitalist service for genital abscess. Pt notes that she started having pain in her groin on her right side beginning 5 days ago, felt the lump while she was wiping. Had difficulty with completing a BM at that point too. Is incontinent of urine and wears diapers at baseline so thought it was related to irritation from the incontinence. Did not note drainage or bleeding at that time. Pain continued to worsen until she came into ED last evening and on their evaluation did note a abscess inferior to labia majora but not involving the rectum itself. CT scan was obtained demonstrating "thick-walled enhancing fluid collection seen within the right buttocks cheek at the crease of the buttocks below the anus measuring approximately 3.2 x 2.9 cm. This is characteristic of a small abscess. There is adjacent skin thickening and edema of the subcutaneous fat representing cellulitis as well." She underwent I&D in the ER last evening and admitted to service. [employer] was consulted due to concern for bartholin's given location of the abscess. Today she reports still draining, less painful than yesterday but still uncomfortable to sit on her right side completely. 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: , x 2 s/p KERRI-BSO in her 30s due to what sounds like anovulatory menorrhagia related to PCOS Allergies Allergy/AdvReac Type Severity Reaction Status Date / Time chocolate flavor Allergy Intermediate Headache Verified 03/25/21 00:58 erythromycin base Allergy Intermediate CONFUSION, Verified 03/25/21 00:58 HEADACHE nitrofurantoin Allergy Intermediate 15 Verified 03/25/21 00:58 different symptoms Home Medications Medication Instructions Recorded Confirmed Type lancets 30 gauge (LoganTouch Delica #25 ea 11/24/18 12/25/20 History Lancets) ipratropium bromide 17 1 puffs INH TID PRN #12.9 gm 07/04/19 03/25/21 Rx mcg/actuation HFA aerosol inhaler (Atrovent HFA) atorvastatin 10 mg tablet 10 mg PO 3XWK #36 tab 09/17/20 03/25/21 Rx glimepiride 2 mg tablet 2 mg PO QAM 10/07/20 03/25/21 History miconazole nitrate 2 % topical 1 applic TOP BID PRN 10/07/20 03/25/21 History powder (Desenex) triamcinolone acetonide 0.1 % 1 appln TOP BID PRN 10/07/20 03/25/21 History topical ointment turmeric 400 mg capsule 400 mg PO DAILY 10/07/20 03/25/21 History venlafaxine 75 mg capsule,extended 225 mg PO QAM 10/07/20 03/25/21 History release 24 hr insulin glargine 100 unit/mL (3 30 unit SUBCUT QAM #15 ml 12/19/20 03/25/21 Rx mL) subcutaneous pen (Lantus Solostar U-100 Insulin) omeprazole 20 mg capsule,delayed 20 mg PO QAM #90 cap 01/14/21 03/25/21 Rx release dulaglutide 1.5 mg/0.5 mL See Rx Instructions .ROUTE 01/20/21 03/25/21 Rx subcutaneous pen injector .COMPLEX #2 ml (Trulicity) cetirizine 10 mg tablet (Zyrtec) 5 mg PO QAM PRN 02/24/21 03/25/21 History fluticasone fur. 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) Vertigo Surgical History History of appendectomy History of biopsy of temporal artery History of colonoscopy (~06/2010) History of dilation and curettage History of neurologic surgery rhizotomy History of total abdominal hysterectomy Reports KERRI-BSO S/P cholecystectomy S/P knee replacement Family History Family/Other Hypertension Diabetes Cancer Adopted Heart disease Grandmother Diabetes Heart disease Grandfather Heart disease Aunt Cancer Uncle Cancer Other No pertinent family history in first degree relatives Social History Smoking Status: Former smoker Hx Alcohol Use: No Hx Substance Use: No Preferred Language: Guinean Communication Ability: Effective Strategic Planning Specialist Required: No Beliefs That Will Affect Care: None marital status: Single Current Living Situation: Alone Current Living Situation Comment: pt has room at [facility] independent living pt to be moving within the month Feels Safe at Home: Yes Assistive Devices: Walker Review of Systems Review of Systems: Neg except noted in HPI Physical Exam Constitutional: WD/WN, vitals as above Respiratory: normal respiratory effort; no respiratory distress and no labored breathing Psychiatric: A+Ox3, euthymic affect Genitourinary: There is packing coming from what appears to be right buttock. Palpation of the area is mildly tender. Upon spreading the labia, it appears that the primary location of this abscess is inferior to perineum. Bilateral labia majora appear to be wnl and superior to where the palpated packed abscess is. On bimanual exam, vagina is noted to be superior to the abscess and a bartholin's cyst/abscess is not palpated, no mass palpated in the labia majora. Abscess is palpated inferior to the lower aspect of the labia majora. Vaginal cuff difficult to palpate due to pt discomfort but no obvious masses Results & Data ([facility]) Vital Signs (Past 12 Hours) Vital Signs Temp Pulse Resp BP BP Pulse Ox 03/25/21 05:30 78 20 168/66 H 93 03/25/21 04:53 76 18 110/80 91 03/25/21 03:50 98.2 F 73 18 135/67 94 03/25/21 03:07 98.4 F 88 20 126/82 97 03/25/21 00:22 88 20 126/82 97 03/24/21 22:14 84 20 124/88 93 Diagnostic Findings 03/24 Abd/Pelvis CT IMPRESSION: 1. Thick-walled enhancing abscess within the medial right buttocks cheek inferior to the anus with no evidence for perirectal abscess. 2. There is associated skin thickening and cellulitis of the adjacent right buttocks. 3. Mild fecal stasis without evidence for impaction or obstruction. 4. Mild sigmoid diverticulosis. 5. Additional nonacute findings are delineated above. PG Care Time/CCT Total # of Minutes Spent Total Time Spent with Patient: Total time spent is greater than 50% in coordination of care (as documented) at patient's floor/unit and/or counseling patient: Coding Level of Care Code 20356 Initial Inpt Care Lvl 2 Diagnoses Subcutaneous abscess L02.91 Cellulitis of female genitalia N76.4
--- NOTE | 2021-03-25 11:26 | Surgery Consultation ---
Date of Consultation March 25, 2021 Assessment & Plan (1) Subcutaneous abscess: This is a 75yF with PMH of DM2, COPD, morbid obesity, CKD, GERD, pacemaker, incontinence who presents to the [facility] ED on 03/24/21 with complaints of pain and swelling of the right groin region starting Tuesday. She presented to the ER due to worsening pain. A CT a/p was performed that revealed no evidence for a perirectal abscess, but there is a thick-walled enhancing fluid collection seen within the right buttocks cheek at the crease of the buttocks below the anus measuring approximately 3.2 x 2.9 cm. This is characteristic of a small abscess associated with cellulitis. The site was I&D in the ER where it appears a moderate amount of fluid was expressed. The patient says she feels about the same so far, she can still appreciate some tenderness in the area. We evaluated the site at the bedside, the packing had fell out. The area of I&D is about the size of a stab wound, attempted to probe area with a q-tip. The area of concern is inferior to the R labia majora, it is indurated, no appreciable fluctuance, and it is still draining some dark/purulent fluid. WBC yesterday 11, she is afebrile with stable vitals. Since area is draining we will continue to monitor patient for now. Would recommend warm compresses to area and continue IV abx. Wound cultures are pending. We will make patient NPO at midnight in the event she will require further I&D this admission. History of Present Illness Attending Physician: Bobby Thurman MD History of Present Illness This is a 75yF with PMH of DM2, COPD, morbid obesity, CKD, GERD, pacemaker, incontinence who presents to the [facility] ED on 03/24/21 with complaints of pain and swelling of the right groin region starting Tuesday. She said she noticed it when she wiped and felt a lump. There has been no drainage from the site, but the area has become progressively painful. She denies fevers/chills. She presented to the ER for further evaluation due to ongoing pain. She underwent a CT a/p that revealed a "thick-walled enhancing abscess within the medial right buttocks cheek inferior to the anus with no evidence for perirectal abscess. There is associated skin thickening and cellulitis of the adjacent right buttocks.". Patient states she did have a shawn-rectal abscess in the past, but none in this particular region. Allergies Allergy/AdvReac Type Severity Reaction Status Date / Time chocolate flavor Allergy Intermediate Headache Verified 03/25/21 00:58 erythromycin base Allergy Intermediate CONFUSION, Verified 03/25/21 00:58 HEADACHE nitrofurantoin Allergy Intermediate 15 Verified 03/25/21 00:58 different symptoms Home Medications Medication Instructions Recorded Confirmed Type lancets 30 gauge (OneTouch Delica #25 ea 11/24/18 12/25/20 History Lancets) ipratropium bromide 17 1 puffs INH TID PRN #12.9 gm 07/04/19 03/25/21 Rx mcg/actuation HFA aerosol inhaler (Atrovent HFA) atorvastatin 10 mg tablet 10 mg PO 3XWK #36 tab 09/17/20 03/25/21 Rx glimepiride 2 mg tablet 2 mg PO QAM 10/07/20 03/25/21 History miconazole nitrate 2 % topical 1 applic TOP BID PRN 10/07/20 03/25/21 History powder (Desenex) triamcinolone acetonide 0.1 % 1 appln TOP BID PRN 10/07/20 03/25/21 History topical ointment turmeric 400 mg capsule 400 mg PO DAILY 10/07/20 03/25/21 History venlafaxine 75 mg capsule,extended 225 mg PO QAM 10/07/20 03/25/21 History release 24 hr insulin glargine 100 unit/mL (3 30 unit SUBCUT QAM #15 ml 12/19/20 03/25/21 Rx mL) subcutaneous pen (Lantus Solostar U-100 Insulin) omeprazole 20 mg capsule,delayed 20 mg PO QAM #90 cap 01/14/21 03/25/21 Rx release dulaglutide 1.5 mg/0.5 mL See Rx Instructions .ROUTE 01/20/21 03/25/21 Rx subcutaneous pen injector .COMPLEX #2 ml (Trulicity) cetirizine 10 mg tablet (Zyrtec) 5 mg PO QAM PRN 02/24/21 03/25/21 History fluticasone fur. 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) Vertigo Surgical History History of appendectomy History of biopsy of temporal artery History of colonoscopy (~06/2010) History of dilation and curettage History of neurologic surgery rhizotomy History of total abdominal hysterectomy Reports KERRI-BSO S/P cholecystectomy S/P knee replacement Family History Family/Other Hypertension Diabetes Cancer Adopted Heart disease Grandmother Diabetes Heart disease Grandfather Heart disease Aunt Cancer Uncle Cancer Other No pertinent family history in first degree relatives Social History Smoking Status: Former smoker Hx Alcohol Use: No Hx Substance Use: No Preferred Language: Vietnamese Communication Ability: Effective Sandwich Peddler Required: No Beliefs That Will Affect Care: None marital status: Single Current Living Situation: Alone Current Living Situation Comment: pt has room at [facility] independent living pt to be moving within the month Feels Safe at Home: Yes Assistive Devices: Walker Review of Systems Constitutional: no fever and no chills Gastrointestinal: no nausea and no vomiting Genitourinary: painful lump in R groin/perineal region. no drainage Physical Exam Physical Exam: awake/alert, cooperative Constitutional: + morbidly obese; not ill appearing Respiratory: normal respiratory effort Skin: area of induration noted inferior to R labia major. packing fell out of I&D sight, stab incision present with area draining dark blood/purulent fluid. Tender to palpation Results & Data ([facility]) Vital Signs (Past 12 Hours) Vital Signs Temp Pulse Resp BP BP Pulse Ox 03/25/21 05:30 78 20 168/66 H 93 03/25/21 04:53 76 18 110/80 91 03/25/21 03:50 36.8 C 73 18 135/67 94 03/25/21 03:07 36.9 C 88 20 126/82 97 03/25/21 00:22 88 20 126/[address] abd pelvis IV con only CLINICAL HISTORY: R genital edema, erythema, pain to anus COMPARISON STUDY: 11/19/2016 CT DOSE: 1297.09 mGy.cm TECHNIQUE: Standard CT of the Abdomen and Pelvis was performed with IV contrast. A dose lowering technique was utilized adhering to the principles of ALARA. Contrast Volume: Optiray 320, 121 ml. The patient did not receive oral contrast. FINDINGS: Lung base: The lung bases are clear. There is a prominent levoscoliotic curve of the thoracic spine which displaces the heart and mediastinal structures to the left. The heart size is within normal limits without evidence for cardiac pacer. Abdominal cavity: There is no evidence for abdominal mass, adenopathy or ascites. There is no evidence for a perirectal abscess. However, there is a thick-walled enhancing fluid collection seen within the right buttocks cheek at the crease of the buttocks below the anus measuring approximately 3.2 x 2.9 cm. This is characteristic of a small abscess. There is adjacent skin thickening and edema of the subcutaneous fat representing cellulitis as well. Liver: There is homogeneous attenuation of the liver parenchyma. There is no evidence for enhancing mass lesion. Spleen: There is homogeneous attenuation of the splenic parenchyma. There is no enhancing mass lesion. Pancreas: There is homogeneous attenuation of the pancreatic parenchyma. There is no evidence for mass lesion or peripancreatic fluid collection. Gall Bladder: Surgical clips are present from previous cholecystectomy. Adrenal glands: The adrenal glands are normal in size and attenuation. There is no evidence for enhancing mass lesion. Kidneys: There is homogeneous attenuation of the renal parenchyma bilaterally. There is no evidence for renal calculus or hydronephrosis. There is no evidence for enhancing mass. Bowel: The bowel loops are normally placed within the abdomen and pelvis without evidence for dilatation or obstruction. However, there is mild fecal stasis particularly in the rectosigmoid region without significant impaction or obstruction. There is also mild sigmoid diverticulosis without evidence for diverticulitis. There are no inflammatory changes present. There is no evidence for free air. The appendix is not visualized. Bladder: The bladder is within normal limits with no evidence for focal mass, calculus or diverticulum. Contrast layers in the dependent portion of bladder on delayed imaging. : There is no evidence for pelvic mass or adenopathy. There is no evidence for pelvic ascites. The patient is status post hysterectomy. Vasculature: There is no evidence for aneurysmal dilatation of the abdominal aorta. Mild atherosclerotic calcification is present. Osseous structures: There is no acute osseous pathology. Extensive degenerative changes are seen within the lower lumbar spine. IMPRESSION: 1. Thick-walled enhancing abscess within the medial right buttocks cheek inferior to the anus with no evidence for perirectal abscess. 2. There is associated skin thickening and cellulitis of the adjacent right buttocks. 3. Mild fecal stasis without evidence for impaction or obstruction. 4. Mild sigmoid diverticulosis. 5. Additional nonacute findings are delineated above. ACT 112: Negative or not required by law. Electronically signed by: Jericho Pruett M.D. 03/25/2021 7:01 AM PG Care Time/CCT Total # of Minutes Spent Total Time Spent with Patient: Total time spent is greater than 50% in coordination of care (as documented) at patient's floor/unit and/or counseling patient: Coding Level of Care Code 39421 Initial Inpt Care Lvl 1 Diagnoses Subcutaneous abscess L02.91
--- NOTE | 2021-03-25 14:02 | Hospitalist Progress Note ---
Date of Service March 25, 2021 Assessment & Plan (1) Subcutaneous abscess: Plan: Subcutaneous abscess/cellulitis of female genitalia- perineum--> NO CLINICAL EVIDENCE OF Guanaco's gangrene Status post I&D by the ED staff Vancomycin IV and Zosyn IV upfront but pharmacy recommending transition of Vanco to Dapto given habitus. Agree with this. Culture data obtained and pending final abx will be tailored based on culture data consulted SOCIAL INSURANCE ADVISER as I was uncertain if this was a Bartholin gland abscess. Exam done and SOCIAL INSURANCE ADVISER feels that this is more in the perineum and that general surgery be consulted will consult general surgery-- appreciate recommendations (briefly D/W them, seems to be adequately draining but will make patient NPO for potential further I&D) (2) Cellulitis of female genitalia: Plan: See above (3) Diabetes: Plan: Diabetes mellitus- Continue glargine 30 units subcu every morning (but 15units tomorrow given NPO s tatus for potential further I&D by general surgery) Hold glimepiride and dulaglutide Place on Accu-Cheks before meals and at bedtime with NovoLog coverage per scale (4) Mild obstructive sleep apnea: Plan: CPAP at bedtime (5) Chronic kidney disease, stage III (moderate): Plan: Creatinine stable at 0.95 upon admission (6) GERD (gastroesophageal reflux disease): Plan: Continue omeprazole/pantoprazole (7) COPD (chronic obstructive pulmonary disease): Plan: Continue Trelegy Ellipta (8) HTN (hypertension): Plan: continue HCTZ (9) Pacemaker: Plan: Noted (10) Hyperlipidemia: Plan: Continue atorvastatin (11) Anxiety with depression: Plan: Continue venlafaxine Plan: plan of care D/W Dr. Thurman, General Surgery and SOCIAL INSURANCE ADVISER Admission and Anticipated Discharge Date Admission Date: March 25, 2021 Subjective Patient seen on daily rounds today. 75 y/o WF with a PMHx of IDDM, COPD, ANJALI- requiring CPAP, HTN, anxiety, HLD, GERD. Hospitalized early this morning with a perineal abscess. Was Lanced and packed in the ED. Afebrile and HD stable. No leukocytosis (11.32) and no shift. CT scan did show a very inferior right buttocks abscess with surrounding cellulitis Currently on Vanco/Zosyn Review of Systems Review of Systems: All systems reviewed and are unremarkable except as noted in HPI and below Denies fevers, chills, headache, nasal congestion, sore throat, cough, chest pain, shortness of breath, palpitations, orthopnea, PND, abdominal pain, nausea, vomiting, diarrhea, constipation, dysuria, hematuria, frequency, back pain, joint pain or swelling, easy bruising or bleeding, skin lesions or rashes. Physical Exam Physical Exam: General: Resting comfortably in her hospital bed. NAD. HEENT: Head is AT/NC buccal mucosa is moist and pink Neck: No JVD. Negative hepatojugular reflex Cardiac: RRR but distant likely due to habitus Lungs: Breathing comfortably on supplemental oxygen. Diminished breath sounds throughout likely due to habitus. No wheezes, rales or rhonchi Abdomen: Obese and difficult to examine but normal active explore. Soft and nontender throughout. Pelvic: Very large labial folds. Labia minora and majora very large. At the right perineal region, there appears to be packing. Area is very indurated (uncertain if it is from residual abscess versus packing that is intact). Very tender to palpation. Extremities: No peripheral clubbing cyanosis or edema Neuro: A&O X4 cranial nerves II through XII are grossly intact no focal neuro deficits Skin: See above Psych: Appropriate affect pleasant and cooperative Results & Data Results & Data ([facility]) Vital Signs (Past 12 Hours) Vital Signs Temp Pulse Resp BP BP Pulse Ox 03/25/21 05:30 78 20 168/66 H 93 03/25/21 04:53 76 18 110/80 91 03/25/21 03:50 36.8 C 73 18 135/67 94 03/25/21 03:07 36.9 C 88 20 126/82 97 Laboratory Results 03/24/21 20:35 03/24/21 20:35 Urinalysis is grossly infected (turbid, cloudy, nitrite and leukocyte esterase positive)--> h/o ESBL E.Coli and Klebsiella UTI PG Care Time/CCT Total # of Minutes Spent Total Time Spent with Patient: Total time spent is greater than 50% in coordination of care (as documented) at patient's floor/unit and/or counseling patient: Coding Level of Care Code None Diagnoses Subcutaneous abscess L02.91 Cellulitis of female genitalia N76.4 Diabetes E11.9 Mild obstructive sleep apnea G47.33 Chronic kidney disease, stage III (moderate) N18.3 GERD (gastroesophageal reflux disease) K21.9 COPD (chronic obstructive pulmonary disease) J44.9 HTN (hypertension) I10 Pacemaker Z95.0 Hyperlipidemia E78.5 Anxiety with depression F41.8
[2021-03-25] MEDS: hydroCHLOROthiazide 25 MG TAB PO SCH (15:20)
[2021-03-25] MEDS: DAPTOmycin 400 MG in SYRINGE 0 ML IV SCH (21:06)
[2021-03-25] MEDS: OXYBUTYNIN CHLORIDE XL 5 MG TABCR PO SCH (21:11)
[2021-03-25] MEDS: MELATONIN 3 MG TAB PO PRN (23:47)
[2021-03-26] MEDS ORDERED: Nursing to Pharmacy Communication SCH ×2 (01:15→19:15)
--- NOTE | 2021-03-26 05:50 | Surgery Progress Note ---
Date of Service March 26, 2021 Assessment & Plan (1) Subcutaneous abscess: Plan: Patient is admitted by the hospital service recommend continuing as follows: Maintain patient on antibiotics. She is currently receiving Zosyn and daptomycin Continue to follow cultures: Blood cultures have been sent and I have no growth to date. Culture from previous I&D is pending however grams stain shows gram- positive cocci We will continue to follow clinically to determine if additional incision and drainage is required. Admission and Anticipated Discharge Date Admission Date: March 25, 2021 Supervising Physician Co-Signing Physician Notes Feels much better than yesterday minimal to no discomfort we will continue with antibiotic since most of the area is nonfluctuant just indurated and we will see how she does clinically to see whether or not she may need further and more extensive incision and drainage since initial I&D was very limited as far as the extent of the incision Subjective Patient denies any fevers, shakes, chills. She notes the site of previous I&D in perirectal area has improved and is less painful than prior to procedure. Physical Exam Constitutional: Patient's perineal area was examined with a female nurse district scout executive present. Just lateral to the labia and rectum there is a small stab wound with a small amount of drainage noted. There is a small amount of fluctuance noted. There is no crepitus in the subcutaneous tissue. Results & Data ([facility]) Vital Signs (Past 12 Hours) Vital Signs Temp Pulse Resp BP Pulse Ox 03/25/21 23:28 36.7 C 77 20 149/71 H 96 PG Care Time/CCT Total # of Minutes Spent Total Time Spent with Patient: Total time spent is greater than 50% in coordination of care (as documented) at patient's floor/unit and/or counseling patient: Coding Level of Care Code 54506 Subseq Hosp Care Lvl 1 Diagnoses Subcutaneous abscess L02.91
[2021-03-26] MEDS: PIPERACILLIN/TAZOBACTAM 4.5 GM in DEXTROSE 5% 100 ML IV SCH ×3 (05:53→23:17)
[2021-03-26] MEDS: INSULIN ASPART 100 UNITS/ML 3 ML PEN SC SCH ×4 (06:05→21:09)
[2021-03-26] MEDS: VENLAFAXINE HCL XR 75 MG CAPXR PO SCH (08:08)
[2021-03-26] MEDS: hydroCHLOROthiazide 25 MG TAB PO SCH (08:08)
[2021-03-26] MEDS: PANTOprazole 40 MG TAB PO SCH (08:08)
[2021-03-26] MEDS: UMECLIDINIUM/VILANTEROL 62.5/25MCG 7 PUFFS/INHALER INH SCH (08:09)
[2021-03-26] MEDS: FLUTICASONE FUROATE 100MCG 14 PUFFS/INHALER INH SCH (08:09)
[2021-03-26] MEDS ORDERED: INSULIN GLARGINE SOLOSTAR 100 UNITS/ML 3 ML PEN SQ SCH (09:00)
[2021-03-26] MEDS ORDERED: LANTUS PER UNIT CHARGE SQ ONE (09:00)
[2021-03-26 09:11] LABS: Basophils # (auto) 0.02 K/uL (0-0.2); Basophils % (auto) 0.2 %; Eosinophils # (auto) 0.29 K/uL (0-0.5); Hematocrit (blood only) 40.2 % (37-47); Hemoglobin 13.4 g/dL (12.0-16.0); Immature Granulocytes # (auto) 0.05 K/uL (0.00-0.02); Immature Granulocytes % (auto) 0.5 %; Lymphocytes # (auto) 3.44 K/uL (1.2-3.4); Mean Corpuscular Hemoglobin 29.5 pg (25-34); Mean Corpuscular Hgb Conc 33.3 g/dL (32-36); Mean Corpuscular Volume 88.4 fL (80-100); Mean Platelet Volume 10.6 fL (7.4-10.4); Monocytes # (auto) 0.86 K/uL (0.11-0.59); Monocytes % (auto) 8.8 %; Neutrophils # (auto) 5.16 K/uL (1.4-6.5); Neutrophils % (auto) 52.5 %; Platelet Count 228 K/uL (130-400); RDW Coefficient of Variation 13.6 % (11.5-14.5); RDW Standard Deviation 44.1 fL (36.4-46.3); Red Blood Count 4.55 M/uL (4.2-5.4); White Blood Count 9.82 K/uL (4.8-10.8)
[2021-03-26] MEDS ORDERED: INSULIN GLARGINE SOLOSTAR 100 UNITS/ML 3 ML PEN SQ STA (09:39)
[2021-03-26 09:44] LABS: Albumin Level 2.7 gm/dl (3.4-5.0); BUN Creatinine Ratio 16.1 (10-20); Calcium 8.6 mg/dl (8.5-10.1); Est GFR (African American) 58.8 ml/min; Est GFR (Non-African American) 50.7 ml/min; Magnesium 1.8 mg/dl (1.8-2.4); Potassium 3.7 mmol/L (3.5-5.1)
[2021-03-26 09:47] LABS: Albumin Globulin Ratio 0.6 (0.9-2); Bilirubin,Total 0.6 mg/dl (0.2-1); Globulin 4.9 gm/dl (2.5-4.0); Total Protein 7.6 gm/dl (6.4-8.2)
--- NOTE | 2021-03-26 12:58 | Hospitalist Progress Note ---
Date of Service March 26, 2021 Assessment & Plan (1) Subcutaneous abscess: Plan: - Subcutaneous abscess/cellulitis of female genitalia- perineum--> NO CLINICAL EVIDENCE OF Guanaco's gangrene - Status post I&D by the ED staff - continue empiric abx threpapy (Zosyn/Dapto) - Culture data obtained and pending ([facility] prelim growth) - final abx will be tailored based on culture data - consulted FLAME ANNEALING MACHINE OPERATOR as I was uncertain if this was a Bartholin gland abscess. Exam done and FLAME ANNEALING MACHINE OPERATOR feels that this is more in the perineum and that general surgery be consulted - general surgery consulted-- they are recommending continuation of abx therapy following initiate lancing that was done in the ED - per my exam today, I am not convinced that there doesn't need to be a deeper incision/repeat I&D performed. I have conveyed this to general surgery who are more than happy to cont to follow clinically and surgically intervene if necessary/no improvement with abx (2) Cellulitis of female genitalia: Plan: - See above (3) Diabetes: Plan: - Continue glargine 30 units subcu every morning - Hold glimepiride and dulaglutide - Place on Accu-Cheks before meals and at bedtime with NovoLog coverage per scale (4) Mild obstructive sleep apnea: Plan: CPAP at bedtime (5) Chronic kidney disease, stage III (moderate): Plan: Creatinine stable at 0.95 upon admission (6) GERD (gastroesophageal reflux disease): Plan: Continue PPI (7) COPD (chronic obstructive pulmonary disease): Plan: Continue Trelegy Ellipta (8) HTN (hypertension): Plan: continue HCTZ (9) Pacemaker: Plan: Noted (10) Hyperlipidemia: Plan: Continue atorvastatin (11) Anxiety with depression: Plan: Continue venlafaxine Plan: plan of care D/W Dr. Thurman and General Surgery Admission and Anticipated Discharge Date Admission Date: March 25, 2021 Subjective Patient seen on daily rounds today. Overall she reports that the pain is somewhat better in the labial region but still very tender. She has not had any fever spikes and has remained hemodynamically stable. Denies fevers, chills, chest pain, shortness of breath, abdominal pain, nausea or vomiting. Was made n.p.o. after midnight last evening with plan for possible I&D today. Seen by general surgery who is recommending continuation of antibiotics and following closely. No need for I&D at this point Review of Systems Review of Systems: All systems reviewed and are unremarkable except as noted in HPI and below Denies fevers, chills, headache, nasal congestion, sore throat, cough, chest pain, shortness of breath, palpitations, orthopnea, PND, abdominal pain, nausea, vomiting, diarrhea, constipation, dysuria, hematuria, frequency, back pain, joint pain or swelling, easy bruising or bleeding, skin lesions or rashes. Physical Exam Physical Exam: General: Resting comfortably in her hospital bed. She does not appear ill or toxic. NAD. HEENT: Head is AT/NC buccal mucosa is moist and pink Neck: No JVD. Negative hepatojugular reflex Cardiac: RRR without M/G/R Lungs: CTA without W/R/R Abdomen: Normoactive X4. Soft and nontender in all quadrants. Extremities: No peripheral clubbing cyanosis or edema Neuro: A&O X4 cranial nerves II through XII are grossly intact no focal neuro deficits Skin: Wound in the right perineal/labial region seems relatively the same. Slightly more indurated today without active drainage. Very tender to palpation. Psych: Appropriate affect pleasant and cooperative Results & Data Results & Data ([facility]) Vital Signs (Past 12 Hours) Vital Signs Temp Pulse Resp BP Pulse Ox 03/26/21 07:28 36.7 C 69 18 124/74 93 Laboratory Results 03/26/21 08:48 03/26/21 08:48 Procedure Result Verified Site Gram Stain Final 03/25/21-1405 Gram Stain Result Many WBCs Seen Few Gram Positive Cocci Deep Wound Culture Preliminary 03/26/21-1159 Pin-point growth present, reincubating. Procedure Result Verified Site Urine Culture Preliminary 03/26/21-6884 Organism 1 Gram negative bacilli [place] Count >100,000 CFU/ml Sens Sensitivities to Follow PG Care Time/CCT Total # of Minutes Spent Total Time Spent with Patient: Total time spent is greater than 50% in coordination of care (as documented) at patient's floor/unit and/or counseling patient: Coding Level of Care Code 83052 Subseq Hosp Care Lvl 1 Diagnoses Subcutaneous abscess L02.91 Cellulitis of female genitalia N76.4 Diabetes E11.9 Mild obstructive sleep apnea G47.33 Chronic kidney disease, stage III (moderate) N18.3 GERD (gastroesophageal reflux disease) K21.9 COPD (chronic obstructive pulmonary disease) J44.9 HTN (hypertension) I10 Pacemaker Z95.0 Hyperlipidemia E78.5 Anxiety with depression F41.8
[2021-03-26] MEDS: DAPTOmycin 400 MG in SYRINGE 0 ML IV SCH (20:38)
[2021-03-26] MEDS: OXYBUTYNIN CHLORIDE XL 5 MG TABCR PO SCH (21:12)
[2021-03-26] MEDS: MELATONIN 3 MG TAB PO PRN (23:17)
[2021-03-27] MEDS: PIPERACILLIN/TAZOBACTAM 4.5 GM in DEXTROSE 5% 100 ML IV SCH ×3 (05:54→22:12)
[2021-03-27] MEDS: MICONAZOLE NITRATE POWDER 43 GM EXT PRN ×2 (05:55→21:45)
[2021-03-27 06:29] LABS: Estimated Average Glucose 220 mg/dl; Hemoglobin A1C 9.3 % (4.5-5.6)
[2021-03-27 08:02] LABS: Basophils # (auto) 0.02 K/uL (0-0.2); Basophils % (auto) 0.2 %; Eosinophils # (auto) 0.32 K/uL (0-0.5); Eosinophils % (auto) 3.2 %; Hematocrit (blood only) 39.7 % (37-47); Hemoglobin 13.1 g/dL (12.0-16.0); Immature Granulocytes # (auto) 0.07 K/uL (0.00-0.02); Immature Granulocytes % (auto) 0.7 %; Lymphocytes # (auto) 3.29 K/uL (1.2-3.4); Lymphocytes % (auto) 32.5 %; Mean Corpuscular Hemoglobin 28.9 pg (25-34); Mean Corpuscular Volume 87.4 fL (80-100); Mean Platelet Volume 10.4 fL (7.4-10.4); Monocytes # (auto) 0.77 K/uL (0.11-0.59); Monocytes % (auto) 7.6 %; Neutrophils # (auto) 5.66 K/uL (1.4-6.5); Neutrophils % (auto) 55.8 %; Platelet Count 238 K/uL (130-400); RDW Coefficient of Variation 13.7 % (11.5-14.5); RDW Standard Deviation 43.7 fL (36.4-46.3); Red Blood Count 4.54 M/uL (4.2-5.4); White Blood Count 10.13 K/uL (4.8-10.8)
[2021-03-27 08:31] LABS: Albumin Level 2.6 gm/dl (3.4-5.0); Calcium 8.6 mg/dl (8.5-10.1); Creatinine Clr Calc Pharmacy 65.6 ml/min; Est GFR (African American) 56.3 ml/min; Est GFR (Non-African American) 48.5 ml/min; Potassium 3.6 mmol/L (3.5-5.1)
[2021-03-27 08:34] LABS: Albumin Globulin Ratio 0.5 (0.9-2); Bilirubin,Total 0.5 mg/dl (0.2-1); Globulin 4.9 gm/dl (2.5-4.0); Total Protein 7.5 gm/dl (6.4-8.2)
[2021-03-27] MEDS ORDERED: INSULIN GLARGINE SOLOSTAR 100 UNITS/ML 3 ML PEN SQ SCH (09:00)
[2021-03-27] MEDS: INSULIN ASPART 100 UNITS/ML 3 ML PEN SC SCH ×4 (09:24→21:27)
[2021-03-27] MEDS: ATORVASTATIN 10 MG TAB PO SCH (09:25)
[2021-03-27] MEDS: hydroCHLOROthiazide 25 MG TAB PO SCH (09:25)
[2021-03-27] MEDS: PANTOprazole 40 MG TAB PO SCH (09:25)
[2021-03-27] MEDS: UMECLIDINIUM/VILANTEROL 62.5/25MCG 7 PUFFS/INHALER INH SCH (09:25)
[2021-03-27] MEDS: FLUTICASONE FUROATE 100MCG 14 PUFFS/INHALER INH SCH (09:25)
[2021-03-27] MEDS: VENLAFAXINE HCL XR 75 MG CAPXR PO SCH (09:25)
[2021-03-27] MEDS ORDERED: SOD PHOSPHATE/SOD BIPHOSPHATE ENEMA 132 ML BTL PR PRN (10:25)
--- NOTE | 2021-03-27 10:39 | Surgery Progress Note ---
Date of Service March 27, 2021 Assessment & Plan (1) Subcutaneous abscess: Plan: Clinically improving. She does not have a leukocytosis or fever. I would keep her 1 more day for IV antibiotics. She can likely go home tomorrow on oral antibiotics. We will continue to follow along. I see no reason at this point to re-incise the area. Admission and Anticipated Discharge Date Admission Date: March 25, 2021 Subjective Continues to feel better. Perhaps some slight tenderness in the region but much better than her admission. Physical Exam Physical Exam: Alert and oriented no acute distress The area of the abscess still has some firmness which is expected. There is really no erythema. I am unable to express any purulence. Minimal to no tenderness. Results & Data ([facility]) Vital Signs (Past 12 Hours) Vital Signs Temp Pulse Resp BP Pulse Ox 03/27/21 07:28 36.6 C 78 18 128/57 L 92 03/26/21 23:27 36.8 C 76 20 157/72 H 94 PG Care Time/CCT Total # of Minutes Spent Total Time Spent with Patient: Total time spent is greater than 50% in coordination of care (as documented) at patient's floor/unit and/or counseling patient: Coding Level of Care Code 87554 Subseq Hosp Care Lvl 2 Diagnoses Subcutaneous abscess L02.91
[2021-03-27] MEDS: POLYETHYLENE (MIRALAX) 17 GM PACK PO SCH (11:50)
--- NOTE | 2021-03-27 15:42 | Hospitalist Progress Note ---
Date of Service March 27, 2021 Assessment & Plan (1) Subcutaneous abscess: Plan: - Subcutaneous abscess/cellulitis of female genitalia- perineum--> NO CLINICAL EVIDENCE OF Guanaco's gangrene - Status post I&D by the ED staff - continue empiric abx threpapy (Zosyn/Dapto) - Culture data from abscess without only pinpoint mixed organisms-- likely skin contaminant - consulted TIRE DUSTER as I was uncertain if this was a Bartholin gland abscess. Exam done and TIRE DUSTER feels that this is more in the perineum and that general surgery be consulted - general surgery consulted-- they are recommending continuation is residual abscess that deeper incision/repeat I&D performed. Will do an U/S to help differentiate. - continue current abx regimen for now until U/S can further confirm (2) Cellulitis of female genitalia: Plan: - See above (3) Diabetes: Plan: - uncontrolled (A1C 9.3%) - uptitrate lantus - Amaryl on hold (would not resume this as high risk of hypoglycemia when used with insulin). May require continue analog upon D/C - Hold dulaglutide - continue to monitor BS and correct with SS accordingly (4) UTI (urinary tract infection): Plan: - patient with recurrent UTI - has chronic urinary incontinence - no significant urinary complaints-- ? true UTI vs colonization - Cx showing ESBL E.Coli (that is sensitive to Zosyn). continue this for now (5) Mild obstructive sleep apnea: Plan: CPAP at bedtime (6) Chronic kidney disease, stage III (moderate): Plan: Creatinine stable at 0.95 upon admission (7) GERD (gastroesophageal reflux disease): Plan: Continue PPI (8) COPD (chronic obstructive pulmonary disease): Plan: Continue Trelegy Ellipta (9) HTN (hypertension): Plan: continue HCTZ (10) Pacemaker: Plan: Noted (11) Hyperlipidemia: Plan: Continue atorvastatin (12) Anxiety with depression: Plan: Continue venlafaxine Plan: plan of care D/W Dr. Thurman Admission and Anticipated Discharge Date Admission Date: March 25, 2021 Subjective Patient seen on daily rounds today. Denies fevers, chills, chest pain, shortness of breath, abdominal pain, nausea or vomiting. Seen by general surgery who does not believe that the perineal abscess needs further I&D Blood sugars have been elevated. A1c subsequently obtained and elevated at 9.3%. Patient routinely takes Lantus and Amaryl Review of Systems Review of Systems: All systems reviewed and are unremarkable except as noted in HPI and below Denies fevers, chills, headache, nasal congestion, sore throat, cough, chest pain, shortness of breath, palpitations, orthopnea, PND, abdominal pain, nausea, vomiting, diarrhea, constipation, dysuria, hematuria, frequency, back pain, joint pain or swelling, easy bruising or bleeding, skin lesions or rashes. Physical Exam Physical Exam: General: Resting comfortably in her hospital bed. NAD. HEENT: Head is AT/NC buccal mucosa is moist and pink Neck: No JVD. Negative hepatojugular reflex Cardiac: RRR without M/G/R Lungs: CTA without W/R/R Abdomen: Normoactive X4. Soft and nontender in all quadrants. Extremities: No peripheral clubbing cyanosis or edema Neuro: A&O X4 cranial nerves II through XII are grossly intact no focal neuro deficits Skin: Still with very large/indurated right labial majora extending into the perineal region. Uncertain if this is excess skin versus residual abscess. Is very tender to touch. No active drainage. Psych: Appropriate affect pleasant and cooperative Results & Data Results & Data ([facility]) Vital Signs (Past 12 Hours) Vital Signs Temp Pulse Resp BP Pulse Ox 03/27/21 07:28 36.6 C 78 18 128/57 L 92 Laboratory Results 03/27/21 07:34 03/27/21 07:34 Procedure Result Verified Site Gram Stain Final 03/25/21-1405 Gram Stain Result Many WBCs Seen Few Gram Positive Cocci Deep Wound Culture Final 03/27/21-1238 Low counts mixed probable skin microbiota. No further identifications or sensitivities to follow. Org 1 = Escherichia coli ESBL Collected: 03/25/21 23:59 Source: Urine,Straight Cath ANTIBIOTIC ORG 1 Amoxacillin/Clavulanate I Ampicillin R Ampicillin/Sulbactam R Cefazolin R Cefepime R Cefotaxime R Ceftriaxone R Ciprofloxacin R Ertapenem S Gentamicin S Levofloxacin R Meropenem S Nitrofurantoin S Piperacillin/Tazobactam S Tobramycin S Trimethoprim/Sulfamethoxazole R PG Care Time/CCT Total # of Minutes Spent Total Time Spent with Patient: Total time spent is greater than 50% in coordination of care (as documented) at patient's floor/unit and/or counseling patient: Coding Level of Care Code 29349 Subseq Hosp Care Lvl 2 Diagnoses Subcutaneous abscess L02.91 Cellulitis of female genitalia N76.4 Diabetes E11.9 Mild obstructive sleep apnea G47.33 Chronic kidney disease, stage III (moderate) N18.3 GERD (gastroesophageal reflux disease) K21.9 COPD (chronic obstructive pulmonary disease) J44.9 HTN (hypertension) I10 Pacemaker Z95.0 Hyperlipidemia E78.5 Anxiety with depression F41.8 UTI (urinary tract infection) N39.0
--- NOTE | 2021-03-27 16:17 | Ultrasound Report ---
US pelvic limited CLINICAL HISTORY: right labia/perineum-- ?? residual abscess COMPARISON STUDY: Abdomen and pelvis CT 03/24/2021. FINDINGS: Real-time sonographic imaging of the right labia was performed with client care representative images s ubmitted. There is a 2.8 x 1.7 x 1.0 cm subcutaneous complex fluid collection containing a punctate f ocus of gas. This is consistent with an abscess. This has slightly decreased in size compared to the prior study. There is surrounding soft tissue edema and echogenic fat consistent with a cellulitis. IMPRESSION: Slight decrease in size of the 2.8 x 1.7 x 1.2 cm subcutaneous abscess within the right labia. ACT 112: Negative or not required by law. Electronically signed by: Romero Spaulding M.D. 03/27/2021 4:16 PM
[2021-03-27] MEDS: DAPTOmycin 400 MG in SYRINGE 0 ML IV SCH (21:21)
[2021-03-27] MEDS: OXYBUTYNIN CHLORIDE XL 5 MG TABCR PO SCH ×2 (21:21→22:11)
[2021-03-27] MEDS: INSULIN GLARGINE SOLOSTAR 100 UNITS/ML 3 ML PEN SQ SCH (21:28)
[2021-03-27] MEDS: MELATONIN 3 MG TAB PO PRN (23:40)
[2021-03-28] MEDS: PIPERACILLIN/TAZOBACTAM 4.5 GM in DEXTROSE 5% 100 ML IV SCH (06:18)
[2021-03-28 06:34] LABS: Basophils # (auto) 0.02 K/uL (0-0.2); Basophils % (auto) 0.2 %; Eosinophils # (auto) 0.33 K/uL (0-0.5); Eosinophils % (auto) 3.4 %; Hematocrit (blood only) 38.9 % (37-47); Hemoglobin 12.9 g/dL (12.0-16.0); Lymphocytes # (auto) 3.01 K/uL (1.2-3.4); Lymphocytes % (auto) 30.9 %; Mean Corpuscular Hemoglobin 29.2 pg (25-34); Mean Corpuscular Hgb Conc 33.2 g/dL (32-36); Mean Platelet Volume 10.4 fL (7.4-10.4); Monocytes # (auto) 0.79 K/uL (0.11-0.59); Monocytes % (auto) 8.1 %; Neutrophils # (auto) 5.48 K/uL (1.4-6.5); Neutrophils % (auto) 56.4 %; Platelet Count 236 K/uL (130-400); RDW Coefficient of Variation 13.6 % (11.5-14.5); Red Blood Count 4.42 M/uL (4.2-5.4); White Blood Count 9.73 K/uL (4.8-10.8)
[2021-03-28 07:08] LABS: Creatinine Clr Calc Pharmacy 71.4 ml/min; Est GFR (African American) 62.3 ml/min; Est GFR (Non-African American) 53.8 ml/min; Potassium 3.5 mmol/L (3.5-5.1)
[2021-03-28] MEDS: INSULIN ASPART 100 UNITS/ML 3 ML PEN SC SCH ×4 (08:41→20:57)
[2021-03-28] MEDS: FLUTICASONE FUROATE 100MCG 14 PUFFS/INHALER INH SCH (08:42)
[2021-03-28] MEDS: UMECLIDINIUM/VILANTEROL 62.5/25MCG 7 PUFFS/INHALER INH SCH (08:42)
[2021-03-28] MEDS: INSULIN GLARGINE SOLOSTAR 100 UNITS/ML 3 ML PEN SQ SCH ×2 (08:42→20:57)
[2021-03-28] MEDS: POLYETHYLENE (MIRALAX) 17 GM PACK PO SCH (08:44)
[2021-03-28] MEDS: VENLAFAXINE HCL XR 75 MG CAPXR PO SCH (08:44)
[2021-03-28] MEDS: hydroCHLOROthiazide 25 MG TAB PO SCH (08:44)
[2021-03-28] MEDS: PANTOprazole 40 MG TAB PO SCH (08:44)
--- NOTE | 2021-03-28 11:57 | Surgery Progress Note ---
Date of Service March 28, 2021 Assessment & Plan (1) Subcutaneous abscess: Plan: - Due to some continued pain at recent I&D site an US was obtained that revealed "Slight decrease in size of the 2.8 x 1.7 x 1.2 cm subcutaneous abscess within the right labia" - WBC 9 and patient is afebrile - Reports her pain is still vastly improved since admission - Evaluated site at bedside with Dr. Duff who performed needle aspiration and got some air return and minimal drainage. Area of concern is very small, believe patient will continue to improve on antibiotics - We are okay for discharge when medically stable on course of po abx and f/u in clinic with Dr. Duff early next week (Tuesday). as above. d/c in next day or 2. f/u with me tuesday in office. Admission and Anticipated Discharge Date Admission Date: March 25, 2021 Subjective Patient endorses some pain at recent I&D site, but says it's >90% improved since admission. No other complaints. Physical Exam Gastrointestinal (Abdomen): minimal to no erythema noted, indurated area inferior to R labia, no appreciable fluctuance Results & Data ([facility]) Vital Signs (Past 12 Hours) Vital Signs Temp Pulse Resp BP Pulse Ox 03/28/21 06:59 36.5 C 73 16 143/71 H 90 PG Care Time/CCT Total # of Minutes Spent Total Time Spent with Patient: Total time spent is greater than 50% in coordination of care (as documented) at patient's floor/unit and/or counseling patient: Coding Level of Care Code 48333 Subseq Hosp Care Lvl 2 Diagnoses Subcutaneous abscess L02.91
--- NOTE | 2021-03-28 15:01 | Hospitalist Progress Note ---
Date of Service March 28, 2021 Assessment & Plan (1) Subcutaneous abscess: Plan: - Subcutaneous abscess/cellulitis of female genitalia- perineum--> NO CLINICAL EVIDENCE OF Guanaco's gangrene - Status post I&D by the ED staff - Empirically on Zosyn/daptomycin - Culture data from abscess not supre helpful --only pinpoint mixed organisms-- likely skin contaminant - consulted UKE OPERATOR as I was uncertain if this was a Bartholin gland abscess. Exam done and UKE OPERATOR feels that this is more in the perineum and that general surgery be consulted - general surgery following - US done d/t persistent pain with small but persistent abscess for which bedside aspiration (by General Surgery) done-- yeilding some air and minimal drainage - WBC has normalized. She has remained afebrile and HD stable - unfortunately no good culture data to help tailor abx - transition to Augmentin (for continued gram neg/anaerobic coverage based on location) and doxycycline (for strep and staph- including MRSA, coverage) - continue to monitor and if continued favorable response- plan to D/C tomorrow - already has FU to see Dr. Duff in the office on Tuesday of next week (2) Cellulitis of female genitalia: Plan: - See above (3) Diabetes: Plan: - uncontrolled (A1C 9.3%) - uptitrate lantus further - Amaryl on hold (would not resume this as high risk of hypoglycemia when used with insulin). May require continue analog upon D/C - Hold dulaglutide - continue to monitor BS and correct with SS accordingly (4) UTI (urinary tract infection): Plan: - patient with recurrent UTI - has chronic urinary incontinence - no significant urinary complaints-- ? true UTI vs colonization - Cx showing ESBL E.Coli (that is sensitive to Zosyn) - pt received 3 days of this (which would be adequate in the setting of an uncomplicated UTI but again, likely asymptomatic bacteruria) (5) Mild obstructive sleep apnea: Plan: CPAP at bedtime (6) Chronic kidney disease, stage III (moderate): Plan: Creatinine stable at 0.95 upon admission (7) GERD (gastroesophageal reflux disease): Plan: Continue PPI (8) COPD (chronic obstructive pulmonary disease): Plan: Continue Trelegy Ellipta (9) HTN (hypertension): Plan: continue HCTZ (10) Pacemaker: Plan: Noted (11) Hyperlipidemia: Plan: Continue atorvastatin (12) Anxiety with depression: Plan: Continue venlafaxine Plan: plan of care D/W Dr. Thurman likely D/C tomorrow Admission and Anticipated Discharge Date Admission Date: March 25, 2021 Subjective Patient seen on daily rounds today. Seen by general surgery who performed needle aspiration at the bedside with return of some air and drainage. Overall reports pain significantly improved compared to initial presentation. Denies fevers, chills, chest pain, shortness of breath, abdominal pain, nausea or vomiting. In addition, denies dysuria, hematuria or frequency. Review of Systems Review of Systems: All systems reviewed and are unremarkable except as noted in HPI and below Denies fevers, chills, headache, nasal congestion, sore throat, cough, chest pain, shortness of breath, palpitations, orthopnea, PND, abdominal pain, nausea, vomiting, diarrhea, constipation, dysuria, hematuria, frequency, back pain, joint pain or swelling, easy bruising or bleeding, skin lesions or rashes. Physical Exam Physical Exam: General: Resting comfortably in her hospital bed. NAD. HEENT: Head is AT/NC buccal mucosa is moist and pink Neck: No JVD. Negative hepatojugular reflex Cardiac: RRR without M/G/R Lungs: CTA without W/R/R Abdomen: Normoactive X4. Soft and nontender in all quadrants. Pelvic: Prior to aspiration done today by general surgery, patient had a grape size indurated lesion just below the right labia majora at the perineum. Very tender to palpation. No active drainage. Extremities: No peripheral clubbing cyanosis or edema Neuro: A&O X4 cranial nerves II through XII are grossly intact no focal neuro deficits Skin: No obvious skin lesions or rashes Psych: Appropriate affect pleasant and cooperative Results & Data Results & Data ([facility]) Vital Signs (Past 12 Hours) Vital Signs Temp Pulse Resp BP Pulse Ox 03/28/21 06:59 36.5 C 73 16 143/71 H 90 Laboratory Results 03/28/21 05:50 03/28/21 05:50 PG Care Time/CCT Total # of Minutes Spent Total Time Spent with Patient: Total time spent is greater than 50% in coordination of care (as documented) at patient's floor/unit and/or counseling patient: Coding Level of Care Code 14289 Subseq Hosp Care Lvl 2 Diagnoses Subcutaneous abscess L02.91 Cellulitis of female genitalia N76.4 Diabetes E11.9 UTI (urinary tract infection) N39.0 Mild obstructive sleep apnea G47.33 Chronic kidney disease, stage III (moderate) N18.3 GERD (gastroesophageal reflux disease) K21.9 COPD (chronic obstructive pulmonary disease) J44.9 HTN (hypertension) I10 Pacemaker Z95.0 Hyperlipidemia E78.5 Anxiety with depression F41.8
[2021-03-28] MEDS: AMOXICILLIN/CLAVULANATE 875 MG TAB PO SCH (17:51)
[2021-03-28] MEDS: MICONAZOLE NITRATE POWDER 43 GM EXT PRN (21:02)
[2021-03-28] MEDS: DOXYCYCLINE HYCLATE 100 MG CAP PO SCH (21:02)
[2021-03-28] MEDS: OXYBUTYNIN CHLORIDE XL 5 MG TABCR PO SCH (21:02)
[2021-03-28] MEDS: MELATONIN 3 MG TAB PO PRN (21:59)
[2021-03-29 06:16] LABS: Basophils # (auto) 0.02 K/uL (0-0.2); Basophils % (auto) 0.2 %; Eosinophils # (auto) 0.27 K/uL (0-0.5); Eosinophils % (auto) 2.9 %; Hematocrit (blood only) 40.8 % (37-47); Hemoglobin 13.6 g/dL (12.0-16.0); Immature Granulocytes # (auto) 0.07 K/uL (0.00-0.02); Immature Granulocytes % (auto) 0.8 %; Lymphocytes # (auto) 2.82 K/uL (1.2-3.4); Lymphocytes % (auto) 30.3 %; Mean Corpuscular Hemoglobin 29.3 pg (25-34); Mean Corpuscular Hgb Conc 33.3 g/dL (32-36); Mean Corpuscular Volume 87.9 fL (80-100); Mean Platelet Volume 10.4 fL (7.4-10.4); Monocytes # (auto) 0.74 K/uL (0.11-0.59); Monocytes % (auto) 7.9 %; Neutrophils # (auto) 5.39 K/uL (1.4-6.5); Neutrophils % (auto) 57.9 %; Platelet Count 241 K/uL (130-400); RDW Coefficient of Variation 13.7 % (11.5-14.5); RDW Standard Deviation 43.8 fL (36.4-46.3); Red Blood Count 4.64 M/uL (4.2-5.4); White Blood Count 9.31 K/uL (4.8-10.8)
[2021-03-29 06:42] LABS: BUN Creatinine Ratio 17.7 (10-20); Calcium 9.1 mg/dl (8.5-10.1); Creatinine Clr Calc Pharmacy 75.8 ml/min; Est GFR (African American) 67.1 ml/min; Est GFR (Non-African American) 57.9 ml/min; Magnesium 2.2 mg/dl (1.8-2.4); Potassium 3.7 mmol/L (3.5-5.1)
[2021-03-29] MEDS: FLUTICASONE FUROATE 100MCG 14 PUFFS/INHALER INH SCH (08:36)
[2021-03-29] MEDS: UMECLIDINIUM/VILANTEROL 62.5/25MCG 7 PUFFS/INHALER INH SCH (08:37)
[2021-03-29] MEDS: POLYETHYLENE (MIRALAX) 17 GM PACK PO SCH (08:37)
[2021-03-29] MEDS: AMOXICILLIN/CLAVULANATE 875 MG TAB PO SCH ×2 (08:38→17:43)
[2021-03-29] MEDS: INSULIN ASPART 100 UNITS/ML 3 ML PEN SC SCH ×4 (08:39→21:35)
[2021-03-29] MEDS: INSULIN GLARGINE SOLOSTAR 100 UNITS/ML 3 ML PEN SQ SCH ×2 (08:39→21:35)
[2021-03-29] MEDS: DOXYCYCLINE HYCLATE 100 MG CAP PO SCH ×2 (08:41→21:34)
[2021-03-29] MEDS: PANTOprazole 40 MG TAB PO SCH (08:41)
[2021-03-29] MEDS: hydroCHLOROthiazide 25 MG TAB PO SCH (08:41)
[2021-03-29] MEDS: VENLAFAXINE HCL XR 75 MG CAPXR PO SCH (08:41)
[2021-03-29] MEDS ORDERED: ACETAMINOPHEN 500 MG TAB PO PRN (17:32)
--- NOTE | 2021-03-29 17:38 | Hospitalist Progress Note ---
Date of Service March 29, 2021 Assessment & Plan (1) Subcutaneous abscess: Plan: - Subcutaneous abscess/cellulitis of female genitalia- perineum--> NO CLINICAL EVIDENCE OF Guanaco's gangrene - Status post I&D by the ED staff (but not cultured) - Empirically started on Zosyn/daptomycin - Attempted culture on hospital day #2 (but limited drainage at that time): Cu lture data from abscess not super helpful --only pinpoint mixed organisms-- likely skin contaminant - consulted ARTIFICIAL GLASS EYE MAKER as I was uncertain if this was a Bartholin gland abscess. Exam done and ARTIFICIAL GLASS EYE MAKER feels that this is more in the perineum and that general surgery be consulted - general surgery following - US done d/t persistent pain with small but persistent abscess for which bedside aspiration (by General Surgery) done-- yeilding some air and minimal drainage - WBC has normalized. She has remained afebrile and HD stable - unfortunately no good culture data to help tailor abx - transitioned to Augmentin (for continued gram neg/anaerobic coverage based on location) and doxycycline (for strep and staph- including MRSA, coverage) - Showing continued favorable response. Medically stable for discharge - already has FU to see Dr. Duff in the office on Tuesday of next week (2) Cellulitis of female genitalia: Plan: - See above (3) Diabetes: Plan: - uncontrolled (A1C 9.3%) - lantus uptitrated and changed to BID during this hospitalization - Amaryl on hold (would not resume this as high risk of hypoglycemia when used with insulin). May require continue analog upon D/C - Hold dulaglutide (4) UTI (urinary tract infection): Plan: - patient with recurrent UTI - has chronic urinary incontinence - no significant urinary complaints-- ? true UTI vs colonization - Cx showing ESBL E.Coli (that is sensitive to Zosyn) - pt received 3 days of this (which would be adequate in the setting of an uncomplicated UTI but again, likely asymptomatic bacteruria) (5) Mild obstructive sleep apnea: Plan: - Patient does not have a CPAP at present but wears oxygen at home - I suspect this is the contributing factor to her excessive somnolence during the day that she gets from time to time - Patient needs a sleep study as an OP (6) Chronic kidney disease, stage III (moderate): Plan: Creatinine stable at 0.95 upon admission (7) GERD (gastroesophageal reflux disease): Plan: Continue PPI (8) COPD (chronic obstructive pulmonary disease): Plan: Continue Trelegy Ellipta (9) HTN (hypertension): Plan: continue HCTZ (10) Pacemaker: Plan: Noted (11) Hyperlipidemia: Plan: Continue atorvastatin (12) Anxiety with depression: Plan: Continue venlafaxine Plan: Patient is actually medically and hemodynamically stable for discharged home with continued antibiotic therapy. Plan was for discharge; however, there is now a social issue. She is moving to [facility] this week and movers are coming tomorrow and reports that her heat was turned off. I cannot discharge her to her home without heat as the temperature has been getting down into the 20s at night) Admission and Anticipated Discharge Date Admission Date: March 25, 2021 Subjective Patient seen on daily rounds today. Vocalizes no significant complaints or concerns other than being overly fatigued. Reports that she "gets this way every once in a while". She denies fevers, chills, chest pain, shortness of breath, abdominal pain, nausea or vomiting. Initial plan was for discharge today; however, patient reports that she is moving to [facility] this week. Her son is coming tomorrow to start moving her furniture and she was notified that her heat was turned off today. She has concerns of discharge because of this. Review of Systems Review of Systems: All systems reviewed and are unremarkable except as noted in HPI and below Denies fevers, chills, headache, nasal congestion, sore throat, cough, chest pain, shortness of breath, palpitations, orthopnea, PND, abdominal pain, nausea, vomiting, diarrhea, constipation, dysuria, hematuria, frequency, back pain, joint pain or swelling, easy bruising or bleeding, skin lesions or rashes. Physical Exam Physical Exam: General: Resting comfortably in her hospital bed. Is somnolent but arousable and talkative. Not overly sedate. NAD. HEENT: Head is AT/NC buccal mucosa is moist and pink Neck: No JVD. Negative hepatojugular reflex Cardiac: RRR but distant heart sounds Lungs: CTA without W/R/R Abdomen: Normoactive X4. Soft and nontender in all quadrants. Extremities: No peripheral clubbing cyanosis or edema Neuro: A&O X4 cranial nerves II through XII are grossly intact no focal neuro deficits Skin: Right labia majora and perineal region seems much less indurated today. The grape-sized lesion that had been noted has resolved (following aspiration). Still slightly tender to touch but significantly improved. Psych: Appropriate affect pleasant and cooperative Results & Data Results & Data ([facility]) Vital Signs (Past 12 Hours) Vital Signs Temp Pulse Resp BP Pulse Ox 03/29/21 14:20 36.7 C 62 16 147/74 H 92 03/29/21 05:35 36.7 C 62 16 147/74 H 92 Laboratory Results 03/29/21 05:47 03/29/21 05:47 PG Care Time/CCT Total # of Minutes Spent Total Time Spent with Patient: Total time spent is greater than 50% in coordination of care (as documented) at patient's floor/unit and/or counseling patient: Coding Level of Care Code 89430 Subseq Hosp Care Lvl 2 Diagnoses Subcutaneous abscess L02.91 Cellulitis of female genitalia N76.4 Diabetes E11.9 UTI (urinary tract infection) N39.0 Mild obstructive sleep apnea G47.33 Chronic kidney disease, stage III (moderate) N18.3 GERD (gastroesophageal reflux disease) K21.9 COPD (chronic obstructive pulmonary disease) J44.9 HTN (hypertension) I10 Pacemaker Z95.0 Hyperlipidemia E78.5 Anxiety with depression F41.8
[2021-03-29] MEDS: OXYBUTYNIN CHLORIDE XL 5 MG TABCR PO SCH (21:34)
[2021-03-29] MEDS: MELATONIN 3 MG TAB PO PRN (22:27)
--- NOTE | 2021-03-30 08:05 | Hospitalist Progress Note ---
Date of Service March 30, 2021 Assessment & Plan Admission and Anticipated Discharge Date Admission Date: March 25, 2021 Results & Data Results & Data ([facility]) Vital Signs (Past 12 Hours) Vital Signs Temp Pulse Resp BP Pulse Ox 03/30/21 07:09 36.5 C 63 16 149/74 H 92 03/29/21 23:11 36.5 C 64 16 152/81 H 94 Laboratory Results 03/30/21 03/29/21 03/29/21 Range/Units 07:41 20:44 17:22 POC Glucose 163 H 232 H 238 H (70-99) mg/dl 03/29/21 03/29/21 Range/Units 12:01 08:07 POC Glucose 240 H 161 H (70-99) mg/dl PG Care Time/CCT Total # of Minutes Spent Total Time Spent with Patient: Total time spent is greater than 50% in coordination of care (as documented) at patient's floor/unit and/or counseling patient: Coding
--- NOTE | 2021-03-30 08:33 | Surgery Progress Note ---
Date of Service March 30, 2021 Assessment & Plan (1) Subcutaneous abscess: Plan: 03/30/21 The patient on oral antibiotics she feels much better reports no drainage (I did not examine her this morning since she was sitting up comfortable At this point from my point of view she can be discharged we will continue oral antibiotics for another week she may follow-up in our office on a as needed basis and hopefully induration will resolve with oral antibiotics All questions were answered - Due to some continued pain at recent I&D site an US was obtained that revealed "Slight decrease in size of the 2.8 x 1.7 x 1.2 cm subcutaneous abscess within the right labia" - WBC 9 and patient is afebrile - Reports her pain is still vastly improved since admission - Evaluated site at bedside with Dr. Duff who performed needle aspiration and got some air return and minimal drainage. Area of concern is very small, believe patient will continue to improve on antibiotics - We are okay for discharge when medically stable on course of po abx and f/u in clinic with Dr. Duff early next week (Tuesday). as above. d/c in next day or 2. f/u with me tuesday in office. Admission and Anticipated Discharge Date Admission Date: March 25, 2021 Subjective Feels much better no further discomfort in the area of interest Physical Exam Physical Exam: Sitting up in chair comfortable Results & Data ([facility]) Vital Signs (Past 12 Hours) Vital Signs Temp Pulse Resp BP Pulse Ox 03/30/21 07:09 36.5 C 63 16 149/74 H 92 03/29/21 23:11 36.5 C 64 16 152/81 H 94 PG Care Time/CCT Total # of Minutes Spent Total Time Spent with Patient: Total time spent is greater than 50% in coordination of care (as documented) at patient's floor/unit and/or counseling patient: Coding Level of Care Code 53801 Subseq Hosp Care Lvl 2 Diagnoses Subcutaneous abscess L02.91
[2021-03-30] MEDS: DOXYCYCLINE HYCLATE 100 MG CAP PO SCH (09:38)
[2021-03-30] MEDS: VENLAFAXINE HCL XR 75 MG CAPXR PO SCH (09:38)
[2021-03-30] MEDS: POLYETHYLENE (MIRALAX) 17 GM PACK PO SCH (09:38)
[2021-03-30] MEDS: AMOXICILLIN/CLAVULANATE 875 MG TAB PO SCH (09:38)
[2021-03-30] MEDS: hydroCHLOROthiazide 25 MG TAB PO SCH (09:38)
[2021-03-30] MEDS: UMECLIDINIUM/VILANTEROL 62.5/25MCG 7 PUFFS/INHALER INH SCH (09:38)
[2021-03-30] MEDS: PANTOprazole 40 MG TAB PO SCH (09:38)
[2021-03-30] MEDS: ATORVASTATIN 10 MG TAB PO SCH (09:38)
[2021-03-30] MEDS: INSULIN GLARGINE SOLOSTAR 100 UNITS/ML 3 ML PEN SQ SCH (09:39)
[2021-03-30] MEDS: FLUTICASONE FUROATE 100MCG 14 PUFFS/INHALER INH SCH (09:39)
[2021-03-30] MEDS: INSULIN ASPART 100 UNITS/ML 3 ML PEN SC SCH ×2 (09:45→13:10)
--- NOTE | 2021-03-30 10:26 | Discharge Summary ---
Date of Service March 30, 2021 Admission HPI Per Admitting Provider The patient is a 75-year-old female with a past medical history occluding COPD, COVID-19, urinary incontinence, diabetes mellitus, first-degree heart block, anxiety, atrial paroxysmal tachycardia, left anterior fascicular block, mild ANJALI, morbid obesity, CKD stage III, depression, GERD, COPD, hypertension and pacemaker. She presents with symptoms as noted above. Admission Exam Per Admitting Provider The patient is awake, alert and oriented 3, well developed and well nourished, normocephalic and atraumatic, lying in bed and in no acute distress. HEENT--PERRL, EOMI, mucous membranes and oropharynx normal. Neck--supple. No JVD. No bruits. Thyroid normal, trachea midline, no adenopathy. Heart--normal S1 and S2. No murmurs, rubs or gallops. Lungs--clear bilaterally, no respiratory distress, no accessory muscle use. Abdomen--normal bowel sounds and soft. Nontender. Nondistended. Obese Extremities--no cyanosis or clubbing. No edema. There are good distal pulses b/l. Dermatologic--abscess formation with surrounding erythema and edema inferior to the right labia majora not involving rectal region Neurologic--cranial nerves II through XII grossly intact. Rheumatologic--normal range of motion. Psychiatric--normal affect. Principal Diagnosis Labial Abscess Discharge Exam General: Resting comfortably in her hospital bed.WD/WN, NAD HEENT: Head is AT/NC buccal mucosa is moist and pink Neck: No JVD. Negative hepatojugular reflex Cardiac: RRR but distant heart sounds Lungs: CTA without W/R/R Abdomen: Normoactive X4. Soft and nontender in all quadrants. Extremities: No peripheral clubbing cyanosis or edema Neuro: A&O X4 cranial nerves II through XII are grossly intact no focal neuro deficits Skin: Right labia majora and perineal region seems much less indurated today. The grape-sized lesion that had been noted has resolved (following aspiration), minimal tenderness to touch, no purulent drainage, scant erythema (reported improved) Psych: AOx3, euthymic affect Discharge Data Allergies Allergy/AdvReac Type Severity Reaction Status Date / Time chocolate flavor Allergy Intermediate Headache Verified 03/25/21 00:58 erythromycin base Allergy Intermediate CONFUSION, Verified 03/25/21 00:58 HEADACHE nitrofurantoin Allergy Intermediate 15 Verified 03/25/21 00:58 different symptoms Consultations 03/25/21 01:55 ED Decision to Admit Stat 03/25/21 08:47 Consult Gynecology Routine 03/25/21 09:32 Consult General Surgery Routine Ordered Studies Abdomen/Pelvis CT 03/24/21 20:05 CT abd pelvis IV con only CLINICAL HISTORY: R genital edema, erythema, pain to anus COMPARISON STUDY: 11/19/2016 CT DOSE: 1297.09 mGy.cm TECHNIQUE: Standard CT of the Abdomen and Pelvis was performed with IV contrast. A dose lowering technique was utilized adhering to the principles of ALARA. Contrast Volume: Optiray 320, 121 ml. The patient did not receive oral contrast. FINDINGS: Lung base: The lung bases are clear. There is a prominent levoscoliotic curve of the thoracic spine which displaces the heart and mediastinal structures to the left. The heart size is within normal limits without evidence for cardiac pacer. Abdominal cavity: There is no evidence for abdominal mass, adenopathy or ascites. There is no evidence for a perirectal abscess. However, there is a thick-walled enhancing fluid collection seen within the right buttocks cheek at the crease of the buttocks below the anus measuring approximately 3.2 x 2.9 cm. This is characteristic of a small abscess. There is adjacent skin thickening and edema of the subcutaneous fat representing cellulitis as well. Liver: There is homogeneous attenuation of the liver parenchyma. There is no evidence for enhancing mass lesion. Spleen: There is homogeneous attenuation of the splenic parenchyma. There is no enhancing mass lesion. Pancreas: There is homogeneous attenuation of the pancreatic parenchyma. There is no evidence for mass lesion or peripancreatic fluid collection. Gall Bladder: Surgical clips are present from previous cholecystectomy. Adrenal glands: The adrenal glands are normal in size and attenuation. There is no evidence for enhancing mass lesion. Kidneys: There is homogeneous attenuation of the renal parenchyma bilaterally. There is no evidence for renal calculus or hydronephrosis. There is no evidence for enhancing mass. Bowel: The bowel loops are normally placed within the abdomen and pelvis without evidence for dilatation or obstruction. However, there is mild fecal stasis particularly in the rectosigmoid region without significant impaction or obstru ction. There is also mild sigmoid diverticulosis without evidence for diverticulitis. There are no inflammatory changes present. There is no evidence for free air. The appendix is not visualized. Bladder: The bladder is within normal limits with no evidence for focal mass, calculus or diverticulum. Contrast layers in the dependent portion of bladder on delayed imaging. : There is no evidence for pelvic mass or adenopathy. There is no evidence for pelvic ascites. The patient is status post hysterectomy. Vasculature: There is no evidence for aneurysmal dilatation of the abdominal aorta. Mild atherosclerotic calcification is present. Osseous structures: There is no acute osseous pathology. Extensive degenerative changes are seen within the lower lumbar spine. IMPRESSION: 1. Thick-walled enhancing abscess within the medial right buttocks cheek inferior to the anus with no evidence for perirectal abscess. 2. There is associated skin thickening and cellulitis of the adjacent right buttocks. 3. Mild fecal stasis without evidence for impaction or obstruction. 4. Mild sigmoid diverticulosis. 5. Additional nonacute findings are delineated above. ACT 112: Negative or not required by law. Electronically signed by: Jericho Pruett M.D. 03/25/2021 7:01 AM Pelvis Ultrasound 03/27/21 15:04 US pelvic limited CLINICAL HISTORY: right labia/perineum-- ?? residual abscess COMPARISON STUDY: Abdomen and pelvis CT 03/24/2021. FINDINGS: Real-time sonographic imaging of the right labia was performed with small business sales representative images submitted. There is a 2.8 x 1.7 x 1.0 cm subcutaneous complex fluid collection containing a punctate focus of gas. This is consistent with an abscess. This has slightly decreased in size compared to the prior study. There is surrounding soft tissue edema and echogenic fat consistent with a cellulitis. IMPRESSION: Slight decrease in size of the 2.8 x 1.7 x 1.2 cm subcutaneous abscess within the right labia. ACT 112: Negative or not required by law. Electronically signed by: Romero Spaulding M.D. 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 Not felt to be case and rec general surgery. General surgery consulted --> US done due to persistent pain, decreased in size. WBC normalized, afebrile, HD stable Transitioned to Augmentin and Doxy (for continued gram neg/anaerobic and strep/staph coverage) at discharge. To f/u with Dr. Duff on Tuesday. (2) Cellulitis of female genitalia: See above improving on abx as above and continued course at d/c (3) Diabetes: - uncontrolled (A1C 9.3%) - lantus uptitrated and changed to BID during this hospitalization and continued this at discharge 26u BID as sugars better controlled D/c Amaryl at d/c (to prevent hypoglycemia when used with insulin) but continued dulaglutide F/u PCP for continued monitoring (4) UTI (urinary tract infection): - patient with recurrent UTI - has chronic urinary incontinence - no significant urinary complaints-- ? true UTI vs colonization - Cx showing ESBL E.Coli (that is sensitive to Zosyn) - pt received 3 days of this (which would be adequate in the setting of an uncomplicated UTI but again, likely asymptomatic bacteruria) (5) Mild obstructive sleep apnea: - Patient does not have a CPAP at present but wears oxygen at home - I suspect this is the contributing factor to her excessive somnolence during the day that she gets from time to time - Patient needs a sleep study as an OP (6) Chronic kidney disease, stage III (moderate): Cr stable (7) GERD (gastroesophageal reflux disease): Continue PPI (8) COPD (chronic obstructive pulmonary disease): Continued Trelegy Ellipta (9) HTN (hypertension): continued HCTZ (10) Pacemaker: Noted (11) Hyperlipidemia: Continue atorvastatin (12) Anxiety with depression: Continued venlafaxine Patient is actually medically and hemodynamically stable for discharged home with continued antibiotic therapy. Plan was for discharge; however, there is now a social issue with heat issues. Now, Manueliper able to take today and DIL to transport. Arrangements made. Total Time Total Time Spent Total Time Spent (In Minutes): 60 Discharge Plan Discharge Items Patient Disposition: Home - Home Health Services Reason For Visit: LOWER EXTREMITY CELLULITIS, DIABETIC INFECTION Discharge Diagnosis: 1. Abscess and cellulitis of the perineal region 2. Hyperglycemia in the setting of diabetes Condition on Discharge: Good Goals: You have been hospitalized for an acute medical problem. During your stay at [facility], we have made an effort to correct the problem that brought you to the hospital while keeping you as comfortable as possible. Medications were used to bring your condition under control and your discharge instructions will include directions for any medications you should take after leaving the hospital. Please make sure you see your Primary Care Provider as part of your follow up plan. Activity: Resume your previous activity Bathing Comment: ok to shower. no Baths. Weightbearing: Full weightbearing Non-emergency contact: Primary Care Provider and Surgeon Call non-emergency contact if: you have any medication questions and your temperature is above 101 Follow-up/Referrals: Ty Obando MD [Primary Care Provider] - 04/06/21 1:15 pm Thomas Duff DO [Surgeon] - 04/07/21 10:00 am (Please call to schedule follow up in clinic next Tuesday) Diet: Carb Consistent or DM2 Addtl Attending Provider Instructions: - you were hospitalized with an abscess of the female genitalia (labia/perineum) - you had the abscess drained in the ED and then further aspirated by Dr. Duff - you need to complete a full course of antibiotics (both Augmentin and Doxycycline) - in addition, your blood sugars were elevated during this hospitalization. Note that your Insulin has been increased to 26 units TWICE DAILY - I would advise stopping your Glimepiride (as this medication when taking with insulin can increase the risk of your blood sugars being too low) - follow up with Dr. Duff on Tuesday as scheduled. Number for office is * Also, it is suspected that you have sleep apnea (as in discussion, you occasion ally get excessively fatigued). I would recommend an overnight sleep study Please follow up with your PCP in 1-2 weeks to monitor your progress since hospitalization. Return to the ER for any fever ,chills chest pain, increased redness/pain/drainage or for any other symptoms that are concerning for you. It has been a pleasure being a part of the medical team providing for you while you have been in the hospital. Pending Studies at Discharge: No Stand-Alone Forms: My [facility] Medications and DC Order Prescriptions: New doxycycline hyclate 100 mg Capsule 100 mg PO BID Qty: 9 RF: 0 amoxicillin-pot clavulanate [Augmentin] 875-125 mg Tablet 1 tab PO BIDM Qty: 9 RF: 0 Lantus Solostar U-100 Insulin 100 unit/mL (3 mL) Insulin Pen 26 unit subcut BID Qty: 15 RF: 0 Continued atorvastatin 10 mg tablet 10 mg PO 3XWK Qty: 36 RF: 3 omeprazole 20 mg capsule,delayed release(DR/EC) 20 mg PO QAM Qty: 90 RF: 3 Trulicity 1.5 mg/0.5 mL pen injector See Rx Instructions .ROUTE .COMPLEX Qty: 2 RF: 5 Atrovent HFA 17 mcg/actuation HFA aerosol inhaler 1 puffs INH TID PRN (Reason: Shortness Of Breath) Qty: 12.9 RF: 11 (DME) lancets [OneTouch Delica Lancets] 30 gauge misc See Dose Instructions .ROUTE .MEDSUPPLY Qty: 25 RF: 0 venlafaxine 75 mg capsule,extended release 24hr 225 mg PO QAM RF: 0 Desenex 2 % powder 1 applic TOP BID PRN (Reason: Skin Irritation) RF: 0 triamcinolone acetonide 0.1 % ointment 1 appln TOP BID PRN (Reason: Skin Irritation) RF: 0 turmeric 400 mg Capsule 400 mg PO DAILY RF: 0 oxybutynin chloride 10 mg tablet extended release 24hr 10 mg PO HS RF: 0 cetirizine [Zyrtec] 10 mg tablet 5 mg PO QAM PRN (Reason: itching) RF: 0 hydrochlorothiazide 25 mg tablet 25 mg PO QAM RF: 0 Trelegy Ellipta 200-62.5-25 mcg blister with device 1 inh inhalation QAM RF: 0 Discontinued Lantus Solostar U-100 Insulin 100 unit/mL (3 mL) insulin pen 30 unit subcut QAM Qty: 15 RF: 11 glimepiride 2 mg tablet 2 mg PO QAM RF: 0 Discharge Orders: Discharge Order (Routine); Ordered 03/30/21 Ordered By: Madiha Sheth/Other Patient Handouts: ED Abscess, Incision And Drainage Admission Data Admit Date/Time: 03/25/21 01:32 Attending Provider: Herber Galvan Admit Provider: Austin Billy Primary Care Provider: Ty Obando Other Providers: Bobby Thurman ; Lu[facility] Fax ; Austin Billy ; Reny Vickers ; Robert Giraldo Other Interventions: Discharge Summary Assessment (RN) Last Done: 03/30/21 13:03 Supervising Physician Co-Signing Physician Notes Patient is a 76 yo female who is being discharged after being treated for subcutaneous abscess During face to face encounter, a brief history of hospital stay and physical was obtained. I discussed plan of care with CAMDEN Avila and patient. Answered the patients questions. Reviewed above note and agree with document. S/P I and D. Patient will be discharged on oral antibiotics as stated above. Coding Level of Care Code D/C DAY MANAGEMENT >30 MINS Diagnoses Subcutaneous abscess L02.91 Cellulitis of female genitalia N76.4 Diabetes E11.9 UTI (urinary tract infection) N39.0 Mild obstructive sleep apnea G47.33 Chronic kidney disease, stage III (moderate) N18.3 GERD (gastroesophageal reflux disease) K21.9 COPD (chronic obstructive pulmonary disease) J44.9 HTN (hypertension) I10 Pacemaker Z95.0 Hyperlipidemia E78.5 Anxiety with depression F41.8
== END 2021-03-30 15:54 | disposition home health service (06) | DRG 580 ==
LOC: ED 18:28 → SUATTDRO 03-25 01:32 → 3E 03-25 01:32

== ENCOUNTER 2022-04-17 09:21 | Inpatient (IN) ==
[2022-04-17] MEDS ORDERED: CEFEPIME 2,000 MG/20 ML VIAL IV STA (09:36)
--- NOTE | 2022-04-17 09:36 | Emergency Department Note ---
Impression & Plan Respiratory distress, CHF (congestive heart failure), Somnolence, Leukocytosis, Elevated CO2 level ED Provider Note NAME: PAPA KELLY AGE: 77 SEX: F : 1945 ARRIVES VIA: Ambulance INFORMANT: [Patient][ems, nursing] ED PROVIDER(S): [Lamont Oliveira MD] CHIEF COMPLAINT: Short of breath, respiratory distress HISTORY OF PRESENT ILLNESS: The patient is a 77-year-old female who presents to the ER with respiratory distress. She has been short of breath for several days but seemed to improve as days would go on. This morning, she was not improving and was in much more distress. EMS was summoned. Upon their arrival, they described moderate respiratory distress and somnolence. The patient had no chest pain. She was placed on CPAP and transported to the ED. Patient is a DNR. She has a history of COPD. She does take diuretics daily. The patient cannot really give any history right now, she is quite somnolent. Given her mental state, no further history obtainable. Of note, I did contact the patient's son Lamont, she is a confirmed DNR. He does know how ill she is currently. REVIEW OF SYSTEMS: Unobtainable given the mental state. PMHx/PSHx: See Below SOCIAL HISTORY: See Below. PHYSICAL EXAM: GENERAL: Patient is in no acute distress. HEENT: No acute trauma, normocephalic atraumatic, mucous membranes moist, no nasal congestion, no scleral icterus. NECK: No stridor, no adenopathy, no meningismus, trachea is midline. LUNGS: Clear to auscultation when listening anterior. Breath sounds are equal. No obvious respiratory distress on BiPAP. HEART: Without murmurs gallops or rubs, regular rate and rhythm. Heart tones are quite distant. ABDOMEN: Soft, nontender, bowel sounds positive, no peritonitis. Obese. EXTREMITIES: No cyanosis. Bilateral pedal edema that is moderate in severity. There is some chronic skin change noted bilaterally. NEUROLOGIC: Somnolent, awakes to touch or loud voice. Moves all extremities. SKIN: No rash, no jaundice, no diaphoresis. DIFFERENTIAL DIAGNOSIS: Reactive airway disease, pneumonia, COVID-19, influenza, RSV, pneumothorax, COPD, CHF, infection, cardiac ischemia, anemia, pulmonary embolism, bronchitis, as well as other pathologies. EMERGENCY DEPARTMENT COURSE/PROCEDURES: ECG: Indication was shortness of breath. The ECG shows a ventricular pacemaker with a rate of 78. There is no ST elevation, no PVCs. The QTC is 508. Continuous Cardiac Monitoring: An order was placed for continuous cardiac monitoring. The monitor shows a rate of 77 with a ventricular pacemaker. Critical Care Note: I have personally spent 51 minutes of critical care time in the direct management of this patient. This includes bedside care, interpretation of diagnostic studies, and testing, discussion with consultants, patient, and family members, and other required patient management activities. This 51 minutes is in excess of all separately billable procedures. MEDICAL DECISION MAKING: There is a significant leukocytosis, this could be consistent with infection or the stress of her current presentation. There was a normal hemoglobin and platelet count. No coagulopathy. Venous blood gas did show CO2 retention. Renal panel testing showed a higher CO2 value consistent with the venous blood gas results. Creatinine was elevated above her typical baseline. Lactic acid level was not elevated making severe sepsis less likely. Alk phos slightly elevated but the remaining liver enzymes were unremarkable. ECG showed a functioning ventricular pacemaker, cardiac enzyme testing x1 was slightly elevated. This elevation could be from cardiac injury or potentially mismatch. Urinalysis was suggestive of potential infection. Respiratory bio fire was comp letely negative. Chest x-ray suggested CHF although, an underlying pneumonia could not be fully ruled out. BNP was elevated consistent with fluid overload. On exam, the patient was somnolent and on BiPAP. The patient received IV Lasix, 80 mg for fluid overload. A Rodriguez catheter was placed. She was given IV cefepime as empiric antibiotic coverage. The patient has done well with her BiPAP. She has become more interactive and awake and talkative. The patient is in need of a hospital stay. She was in respiratory distress earlier but has improved with BiPAP. There is concern for fluid overload and potentially underlying pneumonia. I spoke with the patient, I talked to case management, the on-call hospitalist was consulted. Of note, I did speak with the patient's son Lamont, the patient is a confirmed DNR. He understands that his mother is quite ill today. 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) Vertigo Surgical History History of appendectomy History of biopsy of temporal artery History of colonoscopy (~06/2010) History of dilation and curettage History of neurologic surgery History of total abdominal hysterectomy S/P cholecystectomy S/P knee replacement Family History Family/Other Hypertension Diabetes Cancer Adopted Heart disease Grandmother Diabetes Heart disease Grandfather Heart disease Aunt Cancer Uncle Cancer Other No pertinent family history in first degree relatives Social History Smoking Status: Former smoker Hx Alcohol Use: No Hx Substance Use: No Preferred Language: [place] Communication Ability: Effective Cherry Sorter Required: No Beliefs That Will Affect Care: None marital status: / Current Living Situation: Care Home Current Living Situation Comment: pt has room at [facility] pt to be moving within the month Feels Safe at Home: Yes Safety Concerns: Feels Safe At This Time Assistive Devices: Denture - Upper, Oxygen - Continuous and Walker Allergies Allergies Allergy/AdvReac Type Severity Reaction Status Date / Time chocolate flavor Allergy Intermediate Headache Verified 04/07/21 10:32 erythromycin base Allergy Intermediate CONFUSION, Verified 04/07/21 10:32 HEADACHE nitrofurantoin Allergy Intermediate 15 Verified 04/07/21 10:32 different symptoms Home Meds Home Medications Medication Instructions Recorded Confirmed lancets 30 gauge (SOPATecTouch Delica #25 ea 11/24/18 04/07/21 Lancets) miconazole nitrate 2 % topical 1 applic topical BID PRN Skin 10/07/20 04/07/21 powder (Desenex) Irritation triamcinolone acetonide 0.1 % 1 appln topical BID PRN Skin 10/07/20 04/07/21 topical ointment Irritation cetirizine 10 mg tablet (Zyrtec) 5 mg PO QAM PRN itching 02/24/21 04/07/21 hydrochlorothiazide 25 mg tablet 25 mg PO QAM 02/24/21 04/07/21 Previous Rx's Medication Instructions Recorded dulaglutide 1.5 mg/0.5 mL See Rx Instructions .Route 04/06/21 subcutaneous pen injector .COMPLEX #2 mL (Trulicity) fluticasone fur. 200 mcg-umeclid 1 inh inhalation QAM #60 ea 04/06/21 62.5 mcg-vilant 25 mcg inhalat.powder (Trelegy Ellipta) ipratropium bromide 17 1 puff inhalation TID PRN 04/06/21 mcg/actuation HFA aerosol inhaler Shortness Of Breath #12.9 grams (Atrovent HFA) turmeric 400 mg capsule 400 mg PO DAILY #30 caps 04/06/21 venlafaxine 75 mg capsule,extended 225 mg PO QAM #90 caps 04/06/21 release 24 hr insulin glargine 100 unit/mL (3 26 unit (0.26 mL) subcut BID #15 mL 05/06/21 mL) subcutaneous pen (Lantus Solostar U-100 Insulin) lorazepam 0.5 mg tablet 0.5 mg PO BID #60 tabs 05/25/21 pen needle, diabetic 31 gauge x #100 ea 06/11/21 5/16" (Comfort EZ Pen [place]) oxybutynin chloride 10 mg 10 mg PO HS #90 tabs 07/13/21 tablet,extended release 24 hr atorvastatin 10 mg tablet 10 mg PO 3XWK #36 tabs 09/29/21 omeprazole 20 mg capsule,delayed 20 mg PO QAM #90 caps 10/21/21 release Results & Data (ED) Vital Signs Vital Signs - 24 hr 04/17/22 09:30 04/17/22 09:30 04/17/22 09:35 Temperature 37.7 C H Temperature Source Rectal Pulse Rate 75 77 Pulse Rate from SpO2 Sensor Respiratory Rate 24 33 H Respiratory Effort / Characteristics Spontaneous Labored Short of Breath Non-Labored Non-Labored Spontaneous Respiratory Depth Normal Normal Respiratory Pattern Regular Regular Tachypnea Blood Pressure 123/60 Blood Pressure Mean 81 Pulse Oximetry 98 94 Oxygen Delivery Method BiPAP BiPAP Fraction of Inspired Oxygen 55 Sepsis Recent Fever Within 48 Hours No Sepsis New/Unexplained Change in Mental Status N/A Sepsis Action Taken by Nursing No Action Required 04/17/22 09:26 04/17/22 09:27 04/17/22 09:27 Temperature Temperature Source Pulse Rate 77 77 Pulse Rate from SpO2 Sensor 72 77 Respiratory Rate 32 H 32 H Respiratory Effort / Characteristics Respiratory Depth Respiratory Pattern Blood Pressure 122/63 Blood Pressure Mean 82 Pulse Oximetry 94 94 Oxygen Delivery Method Fraction of Inspired Oxygen Sepsis Recent Fever Within 48 Hours Sepsis New/Unexplained Change in Mental Status Sepsis Action Taken by Nursing 04/17/22 09:30 04/17/22 09:30 04/17/22 10:00 Temperature Temperature Source Pulse Rate 83 Pulse Rate from SpO2 Sensor 76 Respiratory Rate 30 H Respiratory Effort / Characteristics Respiratory Depth Respiratory Pattern Blood Pressure 123/60 120/59 L Blood Pressure Mean 81 79 Pulse Oximetry 95 Oxygen Delivery Method Fraction of Inspired Oxygen Sepsis Recent Fever Within 48 Hours Sepsis New/Unexplained Change in Mental Status Sepsis Action Taken by Nursing 04/17/22 10:00 Temperature Temperature Source Pulse Rate 74 Pulse Rate from SpO2 Sensor 74 Respiratory Rate 20 Respiratory Effort / Characteristics Respiratory Depth Respiratory Pattern Blood Pressure Blood Pressure Mean Pulse Oximetry 95 Oxygen Delivery Method Fraction of Inspired Oxygen Sepsis Recent Fever Within 48 Hours Sepsis New/Unexplained Change in Mental Status Sepsis Action Taken by Care Home Medications Current Medication List: was personally reviewed by me Laboratory Data Attestation: I reviewed the patient's lab results. Result diagrams: 04/17/22 09:30 04/17/22 14:54 Lab Results 04/17/22 04/17/22 04/17/22 Range/Units 09:30 09:30 09:30 WBC 25.51 H (4.8-10.8) K/ul RBC 4.34 (3.93-5.22) M/uL Hgb 12.0 (12.0-16.0) g/dl Hct 40.0 (34.1-44.9) % MCV 92.2 (80.0-100.0) fL MCH 27.6 (25.0-34.0) pg MCHC 30.0 L (32.0-36.0) g/dL RDW Std Deviation 47.0 H (36.4-46.3) fL RDW Coeff of Iman 13.8 (11.5-14.5) % Plt Count 300 (130-400) K/uL MPV 10.0 (9.4-12.3) fL Immature Gran % (Auto) 0.9 % Neut % (Auto) 91.5 % Lymph % (Auto) 4.3 % [place] % (Auto) 3.1 % Eos % (Auto) 0.0 % Baso % (Auto) 0.2 % Neut # (Auto) 23.33 H (1.4-6.5) K/uL Lymph # (Auto) 1.10 L (1.2-3.4) K/uL [place] # (Auto) 0.79 (0.24-0.82) K/uL Eos # (Auto) 0.01 (0-0.50) K/uL Baso # (Auto) 0.05 (0-0.2) K/uL Immature Gran # (Auto) 0.23 H (0.00-0.02) K/uL PT (9.0-12.0) Seconds INR (0.9-1.1) APTT (21.0-31.0) Seconds PTT Ratio VBG pH (7.36-7.41) VBG pCO2 (38-50) mmHg VBG pO2 mmHg VBG HCO3 mmol/L VBG O2 Saturation % VBG Base Excess mEq/L Sodium 140 (136-145) mmol/L Potassium 3.4 L (3.5-5.1) mmol/L Chloride 88 L (98-107) mmol/L Carbon Dioxide 45 H* (21-32) mmol/L Anion Gap 7 (3-11) BUN 37 H (6-23) mg/dl Creatinine 1.65 H (0.6-1.2) mg/dl Est Cr Clr Drug Dosing 41.6 ml/min Est GFR ( Amer) 34.4 ml/min Est GFR (Non-Af Amer) 29.6 ml/min BUN/Creatinine Ratio 22.4 H (10-20) Glucose 99 (70-99(Fasting)) mg/dl Lactate 1.1 (0.4-2.0) mmol/L Calcium 8.7 (8.5-10.1) mg/dl Magnesium 2.1 (1.7-2.4) mg/dl Total Bilirubin 0.6 (0.2-1.0) mg/dl AST 11 L (13-39) U/L ALT 7 (7-52) U/L Alkaline Phosphatase 128 H (34-104) U/L Troponin I High Sens 41.3 H (0-14) pg/ml B-Natriuretic Peptide (0-100) pg/ml Total Protein 7.6 (6.0-8.3) gm/dl Albumin 3.3 L (3.4-5.0) gm/dl Globulin 4.3 H (2.5-4.0) gm/dl Albumin/Globulin Ratio 0.8 L (0.9-2) Procalcitonin (0-0.5) ng/ml Urine Color Urine Appearance (Clear) Urine pH (4.5-7.5) Ur Specific [place] (1.000-1.030) Urine Protein (Negative) Urine Glucose (UA) (Negative) Urine Ketones (Negative) Urine Blood (Negative) Urine Nitrite (Negative) Urine Bilirubin (Negative) Urine Urobilinogen (Negative) Ur Leukocyte Esterase (Negative) Urine WBC (Auto) (0-5) /hpf Urine RBC (Auto) (0-4) /hpf U Hyaline Cast (Auto) (0-5) /lpf U Epithel Cells (Auto) (0-5) /lpf Urine Bacteria (Auto) (Negative) Urine Yeast Adenovirus (PCR) (NotDetected) B. pertussis DNA (PCR) (NotDetected) B.parapertussis DNA PCR (NotDetected) C. pneumoniae DNA (PCR) (NotDetected) Coronavirus OC43 (PCR) (NotDetected) Coronavirus HKU1 (PCR) (NotDetected) Coronavirus 229E (PCR) (NotDetected) SARS-CoV-2 (PCR) (NotDetected) Coronavirus NL63 (PCR) (NotDetected) Human Metapneumovir PCR (NotDetected) Influenza Type A (PCR) (NotDetected) Influenza Type B (PCR) (NotDetected) M. pneumoniae (PCR) (NotDetected) Parainfluenza 1 (PCR) (NotDetected) Parainfluenza 2 (PCR) (NotDetected) Parainfluenza 3 (PCR) (NotDetected) Parainfluenza 4 (PCR) (NotDetected) RSV (PCR) (NotDetected) Entero/Rhino (PCR) (NotDetected) 04/17/22 04/17/22 04/17/22 Range/Units 09:30 09:30 09:30 WBC (4.8-10.8) K/ul RBC (3.93-5.22) M/uL Hgb (12.0-16.0) g/dl Hct (34.1-44.9) % MCV (80.0-100.0) fL MCH (25.0-34.0) pg MCHC (32.0-36.0) g/dL RDW Std Deviation (36.4-46.3) fL RDW Coeff of Iman (11.5-14.5) % Plt Count (130-400) K/uL MPV (9.4-12.3) fL Immature Gran % (Auto) % Neut % (Auto) % Lymph % (Auto) % [place] % (Auto) % Eos % (Auto) % Baso % (Auto) % Neut # (Auto) (1.4-6.5) K/uL Lymph # (Auto) (1.2-3.4) K/uL [place] # (Auto) (0.24-0.82) K/uL Eos # (Auto) (0-0.50) K/uL Baso # (Auto) (0-0.2) K/uL Immature Gran # (Auto) (0.00-0.02) K/uL PT 11.5 (9.0-12.0) Seconds INR 1.1 (0.9-1.1) APTT 27.9 (21.0-31.0) Seconds PTT Ratio 1.0 VBG pH 7.47 H (7.36-7.41) VBG pCO2 76 H (38-50) mmHg VBG pO2 55 mmHg VBG HCO3 55 mmol/L VBG O2 Saturation 87.9 % VBG Base Excess 26.2 mEq/L Sodium (136-145) mmol/L Potassium (3.5-5.1) mmol/L Chloride (98-107) mmol/L Carbon Dioxide (21-32) mmol/L Anion Gap (3-11) BUN (6-23) mg/dl Creatinine (0.6-1.2) mg/dl Est Cr Clr Drug Dosing ml/min Est GFR ( Amer) ml/min Est GFR (Non-Af Amer) ml/min BUN/Creatinine Ratio (10-20) Glucose (70-99(Fasting)) mg/dl Lactate (0.4-2.0) mmol/L Calcium (8.5-10.1) mg/dl Magnesium (1.7-2.4) mg/dl Total Bilirubin (0.2-1.0) mg/dl AST (13-39) U/L ALT (7-52) U/L Alkaline Phosphatase (34-104) U/L Troponin I High Sens (0-14) pg/ml B-Natriuretic Peptide 228 H (0-100) pg/ml Total Protein (6.0-8.3) gm/dl Albumin (3.4-5.0) gm/dl Globulin (2.5-4.0) gm/dl Albumin/Globulin Ratio (0.9-2) Procalcitonin (0-0.5) ng/ml Urine Color Urine Appearance (Clear) Urine pH (4.5-7.5) Ur Specific [place] (1.000-1.030) Urine Protein (Negative) Urine Glucose (UA) (Negative) Urine Ketones (Negative) Urine Blood (Negative) Urine Nitrite (Negative) Urine Bilirubin (Negative) Urine Urobilinogen (Negative) Ur Leukocyte Esterase (Negative) Urine WBC (Auto) (0-5) /hpf Urine RBC (Auto) (0-4) /hpf U Hyaline Cast (Auto) (0-5) /lpf U Epithel Cells (Auto) (0-5) /lpf Urine Bacteria (Auto) (Negative) Urine Yeast Adenovirus (PCR) (NotDetected) B. pertussis DNA (PCR) (NotDetected) B.parapertussis DNA PCR (NotDetected) C. pneumoniae DNA (PCR) (NotDetected) Coronavirus OC43 (PCR) (NotDetected) Coronavirus HKU1 (PCR) (NotDetected) Coronavirus 229E (PCR) (NotDetected) SARS-CoV-2 (PCR) (NotDetected) Coronavirus NL63 (PCR) (NotDetected) Human Metapneumovir PCR (NotDetected) Influenza Type A (PCR) (NotDetected) Influenza Type B (PCR) (NotDetected) M. pneumoniae (PCR) (NotDetected) Parainfluenza 1 (PCR) (NotDetected) Parainfluenza 2 (PCR) (NotDetected) Parainfluenza 3 (PCR) (NotDetected) Parainfluenza 4 (PCR) (NotDetected) RSV (PCR) (NotDetected) Entero/Rhino (PCR) (NotDetected) 04/17/22 04/17/22 04/17/22 Range/Units 09:30 09:50 10:25 WBC (4.8-10.8) K/ul RBC (3.93-5.22) M/uL Hgb (12.0-16.0) g/dl Hct (34.1-44.9) % MCV (80.0-100.0) fL MCH (25.0-34.0) pg MCHC (32.0-36.0) g/dL RDW Std Deviation (36.4-46.3) fL RDW Coeff of Iman (11.5-14.5) % Plt Count (130-400) K/uL MPV (9.4-12.3) fL Immature Gran % (Auto) % Neut % (Auto) % Lymph % (Auto) % [place] % (Auto) % Eos % (Auto) % Baso % (Auto) % Neut # (Auto) (1.4-6.5) K/uL Lymph # (Auto) (1.2-3.4) K/uL [place] # (Auto) (0.24-0.82) K/uL Eos # (Auto) (0-0.50) K/uL Baso # (Auto) (0-0.2) K/uL Immature Gran # (Auto) (0.00-0.02) K/uL PT (9.0-12.0) Seconds INR (0.9-1.1) APTT (21.0-31.0) Seconds PTT Ratio VBG pH (7.36-7.41) VBG pCO2 (38-50) mmHg VBG pO2 mmHg VBG HCO3 mmol/L VBG O2 Saturation % VBG Base Excess mEq/L Sodium (136-145) mmol/L Potassium (3.5-5.1) mmol/L Chloride (98-107) mmol/L Carbon Dioxide (21-32) mmol/L Anion Gap (3-11) BUN (6-23) mg/dl Creatinine (0.6-1.2) mg/dl Est Cr Clr Drug Dosing ml/min Est GFR ( Amer) ml/min Est GFR (Non-Af Amer) ml/min BUN/Creatinine Ratio (10-20) Glucose (70-99(Fasting)) mg/dl Lactate (0.4-2.0) mmol/L Calcium (8.5-10.1) mg/dl Magnesium (1.7-2.4) mg/dl Total Bilirubin (0.2-1.0) mg/dl AST (13-39) U/L ALT (7-52) U/L Alkaline Phosphatase (34-104) U/L Troponin I High Sens (0-14) pg/ml B-Natriuretic Peptide (0-100) pg/ml Total Protein (6.0-8.3) gm/dl Albumin (3.4-5.0) gm/dl Globulin (2.5-4.0) gm/dl Albumin/Globulin Ratio (0.9-2) Procalcitonin 1.67 H (0-0.5) ng/ml Urine Color Dark Yellow Urine Appearance Turbid A (Clear) Urine pH 6.0 (4.5-7.5) Ur Specific [place] 1.011 (1.000-1.030) Urine Protein 1+ H (Negative) Urine Glucose (UA) Negative (Negative) Urine Ketones Negative (Negative) Urine Blood 2+ H (Negative) Urine Nitrite Positive A (Negative) Urine Bilirubin Negative (Negative) Urine Urobilinogen Negative (Negative) Ur Leukocyte Esterase 3+ H (Negative) Urine WBC (Auto) >30 H (0-5) /hpf Urine RBC (Auto) 0-4 (0-4) /hpf U Hyaline Cast (Auto) 1-5 (0-5) /lpf U Epithel Cells (Auto) >30 H (0-5) /lpf Urine Bacteria (Auto) 3+ H (Negative) Urine Yeast Not Reportable Adenovirus (PCR) Not Detected (NotDetected) B. pertussis DNA (PCR) Not Detected (NotDetected) B.parapertussis DNA PCR Not Detected (NotDetected) C. pneumoniae DNA (PCR) Not Detected (NotDetected) Coronavirus OC43 (PCR) Not Detected (NotDetected) Coronavirus HKU1 (PCR) Not Detected (NotDetected) Coronavirus 229E (PCR) Not Detected (NotDetected) SARS-CoV-2 (PCR) Not Detected (NotDetected) Coronavirus NL63 (PCR) Not Detected (NotDetected) Human Metapneumovir PCR Not Detected (NotDetected) Influenza Type A (PCR) Not Detected (NotDetected) Influenza Type B (PCR) Not Detected (NotDetected) M. pneumoniae (PCR) Not Detected (NotDetected) Parainfluenza 1 (PCR) Not Detected (NotDetected) Parainfluenza 2 (PCR) Not Detected (NotDetected) Parainfluenza 3 (PCR) Not Detected (NotDetected) Parainfluenza 4 (PCR) Not Detected (NotDetected) RSV (PCR) Not Detected (NotDetected) Entero/Rhino (PCR) Not Detected (NotDetected) Administered Medications Enoxaparin Sodium (Enoxaparin Inj 40 Mg/0.4 Ml Syr) 40 mg SQ Q24H TERI Stop: 05/17/22 13:29 Last Admin: 04/17/22 14:12 Dose: 40 mg Documented By: DMB Insulin Aspart (Insulin Aspart Per Unit) 0 units SC ACHS TERI Stop: 05/17/22 13:13 Last Admin: 04/17/22 13:50 Dose: Not Given Documented By: DMB Discontinued Medications Furosemide (Furosemide 40 Mg/4 Ml Vial) 80 mg IV ONE STA Stop: 04/17/22 09:38 Last Admin: 04/17/22 10:02 Dose: 80 mg Documented By: NDW Cefepime HCl (Maxipime) 2,000 mg in 20 mls @ 5 mls/min IV NOW STA; Protocol Stop: 04/17/22 09:39 Last Admin: 04/17/22 10:02 Dose: 5 mls/min Documented By: NDW Potassium Chloride (K Remigio / Wtr) 10 meq in 100 mls @ 100 mls/hr IV Q1H TERI Stop: 04/17/22 16:13 Last Admin: 04/17/22 15:43 Dose: 100 mls/hr Documented By: Infusion: 04/17/22 14:54 Dose: 100 mls/hr Documented By: Admin: 04/17/22 13:54 Dose: 100 mls/hr Documented By: ÁNGEL Piperacillin Sod/Tazobactam (Sod 4.5 gm/ Dextrose) 120 mls @ 200 mls/hr IV NOW ONE; Protocol Stop: 04/17/22 14:05 Last Infusion: 04/17/22 14:43 Dose: 0 mls/hr Documented By: Admin: 04/17/22 13:54 Dose: 200 mls/hr Documented By: ÁNGEL Imaging Data Radiologist's Impression: Chest X-Ray 04/17/22 09:32 SINGLE VIEW CHEST CLINICAL HISTORY: Dyspnea. FINDINGS: An AP, portable, upright chest radiograph is compared to study dated 02/18/2021 and correlated with chest CT dated 04/16/2018. The examination is degraded by portable technique and patient rotation. A 2-lead cardiac pacemaker is unchanged in position. The heart is enlarged indenting atherosclerotic calcification of the thoracic aorta. There is pulmonary vascular congestion with pulmonary edema . There are layering pleural effusions with dependent consolidation. A calcified granuloma is noted in the right midlung. No pneumothorax is seen. The skeletal structures are osteopenic. The bony thorax is grossly intact. IMPRESSION: 1. Cardiomegaly and cardiac pacemaker with evidence of congestive failure and pulmonary edema. 2. There are layering pleural effusions with dependent consolidation. This likely represents atelectasis and clinical correlation will be required. ACT 112: Negative or not required by law. Electronically signed by: Lamont Kinney M.D. 04/17/2022 10:00 AM Discharge Plan Visit Data Chief Complaint: Respiratory Distress ED Provider: Lamont Oliveira Discharge Problem: Respiratory distress, CHF (congestive heart failure), Somnolence, Leukocytosis, Elevated CO2 level Patient Disposition: Admitted As Inpatient Condition: Serious Discharge Instructions Interventions: ED Discharge Assessment Last Done: 04/17/22 12:53
[2022-04-17] MEDS ORDERED: FUROSEMIDE 40 MG/4 ML VIAL IV STA (09:37)
[2022-04-17 09:44] LABS: Base Excess VBG 26.2 mEq/L; HCO3 VBG 55 mmol/L; Oxygen Saturation VBG 87.9 %; PCO2 VBG 76 mmHg (38-50); PO2 VBG 55 mmHg; pH VBG 7.47 (7.36-7.41)
[2022-04-17 09:45] LABS: Mean Corpuscular Hemoglobin 27.6 pg (25.0-34.0); Mean Corpuscular Volume 92.2 fL (80.0-100.0); Platelet Count 300 K/uL (130-400); RDW Coefficient of Variation 13.8 % (11.5-14.5); Red Blood Count 4.34 M/uL (3.93-5.22); White Blood Count 25.51 K/ul (4.8-10.8)
--- NOTE | 2022-04-17 10:01 | XRay Report ---
SINGLE VIEW CHEST CLINICAL HISTORY: Dyspnea. FINDINGS: An AP, portable, upright chest radiograph is compared to study dated 02/18/2021 and correla buck with chest CT dated 04/16/2018. The examination is degraded by portable technique and patient rot ation. A 2-lead cardiac pacemaker is unchanged in position. The heart is enlarged indenting atheroscl erotic calcification of the thoracic aorta. There is pulmonary vascular congestion with pulmonary [place] . There are layering pleural effusions with dependent consolidation. A calcified granuloma is note d in the right midlung. No pneumothorax is seen. The skeletal structures are osteopenic. The bony tho rax is grossly intact. IMPRESSION: 1. Cardiomegaly and cardiac pacemaker with evidence of congestive failure and pulmonary edema. 2. There are layering pleural effusions with dependent consolidation. This likely represents atelecta sis and clinical correlation will be required. ACT 112: Negative or not required by law. Electronically signed by: Lamont Kinney M.D. 04/17/2022 10:00 AM
[2022-04-17 10:10] LABS: INR 1.1 (0.9-1.1); Partial Thromboplastin Time 27.9 Seconds (21.0-31.0); Prothrombin Time 11.5 Seconds (9.0-12.0)
[2022-04-17 10:21] LABS: Albumin Globulin Ratio 0.8 (0.9-2); Albumin Level 3.3 gm/dl (3.4-5.0); BUN Creatinine Ratio 22.4 (10-20); Bilirubin,Total 0.6 mg/dl (0.2-1.0); Calcium 8.7 mg/dl (8.5-10.1); Creatinine Clr Calc Pharmacy 41.6 ml/min; Est GFR (African American) 34.4 ml/min; Est GFR (Non-African American) 29.6 ml/min; Globulin 4.3 gm/dl (2.5-4.0); Magnesium 2.1 mg/dl (1.7-2.4); Potassium 3.4 mmol/L (3.5-5.1); Total Protein 7.6 gm/dl (6.0-8.3); Troponin I High Sensitivity 41.3 pg/ml (0-14)
[2022-04-17 10:30] LABS: Basophils # (auto) 0.05 K/uL (0-0.2); Basophils % (auto) 0.2 %; Eosinophils # (auto) 0.01 K/uL (0-0.50); Immature Granulocytes # (auto) 0.23 K/uL (0.00-0.02); Immature Granulocytes % (auto) 0.9 %; Lymphocytes % (auto) 4.3 %; Monocytes # (auto) 0.79 K/uL (0.24-0.82); Monocytes % (auto) 3.1 %; Neutrophils # (auto) 23.33 K/uL (1.4-6.5); Neutrophils % (auto) 91.5 %
[2022-04-17 10:31] LABS: Appearance Urine Turbid (Clear); Bacteria Urine Automated 3+ (Negative); Bilirubin Urine Negative (Negative); Blood Urine 2+ (Negative); Color Urine Dark Yellow; Epithelial Cell Urine Auto >30 /lpf (0-5); Glucose Urine UA Negative (Negative); Ketones Urine Negative (Negative); Leukocyte Esterase Urine 3+ (Negative); Nitrite Urine Positive (Negative); Protein Urine 1+ (Negative); RBC Urine Automated 0-4 /hpf (0-4); Specific Gravity Urine 1.011 (1.000-1.030); Urobilinogen Urine Negative (Negative); WBC Urine Automated >30 /hpf (0-5)
--- NOTE | 2022-04-17 10:52 | History & Physical Report ---
Date of Service April 17, 2022 Assessment & Plan (1) Acute and chronic respiratory failure with hypercapnia: Plan: Patient presents with respiratory failure obtundation she is placed on CPAP. Reportedly VBG shows elevated carbon dioxide level. This is likely attributed to multiple factors of a possible gram-negative aspiration pneumonia in addition to acute diastolic heart failure. Patient does not have a significant elevation of BNP but she does have a history of LVH. Patient was given IV diuresis in the emergency department and cefepime. Patient had blood cultures obtained. Repeat ABG at 1400 hrs. shows persistent CO2 retention but improving She is maintained on pulmonary support with noninvasive positive pressure ventilation. Will transition antibiotics to Zosyn to cover aspiration gram-negative's and Pseudomonas. After admission patient had MRSA nasal swab positive added vancomycin At this point time we will not initiate additional diuretic therapy we will repeat an echocardiogram. With regard to possible congestive heart failure the patient is a mild elevation of her troponin which is likely demand ischemia due to her profound respiratory distress but we will trend his troponins (2) Diabetes: Plan: Patient is on on oral and injectable medications for diabetes. She is typically is on Lantus 26 twice daily. This will be reduced as she is currently of unclear oral intake , reduce Lantus dose to 20 units twice daily with a sliding scale. (3) Chronic kidney disease, stage III (moderate): Plan: Patient presents with acute kidney injury with chronic kidney disease stage III. She was given a fairly reasonable dose of diuresis in the emergency department with concern that her creatinine may go up further. We will recheck a BMP in the afternoon as well as additional troponin testing. (4) Depression: Plan: Patient takes venlafaxine will attempt to give this when the patient awakens (5) Pacemaker: Plan: EKG confirms continues to be paced Plan Son confirms she is DNR, Lovenox was used for DVT prevention History of Present Illness [facility] 77-year-old female resident of [facility] who is a history of COPD presents in acute respiratory failure found obtunded at [facility] brought in with concern for pneumonia, acute diastolic heart failure, hypercarbic respiratory failure. Placed on BiPAP. Chest x-ray shows significant infiltrates possibly gram-neg ative or aspiration pneumonia patient cannot provide any history. ER physician, spoke to the patient's son Lamont who confirms patient is a DNR, family also feels that they are comfortable treating with antibiotics and BiPAP support but nothing more aggressive She has mild elevation of her troponin mildly hypokalemic. EKG does not show acute current of injury. After period of BiPAP with the patient was able to open her eyes and speak although not make complete sense or follow commands Allergies Allergy/AdvReac Type Severity Reaction Status Date / Time chocolate flavor Allergy Intermediate Headache Verified 04/07/21 10:32 erythromycin base Allergy Intermediate CONFUSION, Verified 04/07/21 10:32 HEADACHE nitrofurantoin Allergy Intermediate 15 Verified 04/07/21 10:32 different symptoms Home Medications Medication Instructions Recorded Confirmed Type lancets 30 gauge (OneTouch Delica #25 ea 11/24/18 04/07/21 History Lancets) miconazole nitrate 2 % topical 1 applic topical BID PRN Skin 10/07/20 04/07/21 History powder (Desenex) Irritation triamcinolone acetonide 0.1 % 1 appln topical BID PRN Skin 10/07/20 04/07/21 History topical ointment Irritation cetirizine 10 mg tablet (Zyrtec) 5 mg PO QAM PRN itching 02/24/21 04/07/21 History hydrochlorothiazide 25 mg tablet 25 mg PO QAM 02/24/21 04/07/21 History dulaglutide 1.5 mg/0.5 mL See Rx Instructions .Route 04/06/21 04/07/21 Rx subcutaneous pen injector .COMPLEX #2 mL (Trulicity) fluticasone fur. 200 mcg-umeclid 1 inh inhalation QAM #60 ea 04/06/21 04/07/21 Rx 62.5 mcg-vilant 25 mcg inhalat.powder (Trelegy Ellipta) ipratropium bromide 17 1 puff inhalation TID PRN 04/06/21 04/07/21 Rx mcg/actuation HFA aerosol inhaler Shortness Of Breath #12.9 grams (Atrovent HFA) turmeric 400 mg capsule 400 mg PO DAILY #30 caps 04/06/21 04/07/21 Rx venlafaxine 75 mg capsule,extended 225 mg PO QAM #90 caps 04/06/21 04/07/21 Rx release 24 hr insulin glargine 100 unit/mL (3 26 unit (0.26 mL) subcut BID #15 mL 05/06/21 Rx mL) subcutaneous pen (Lantus Solostar U-100 Insulin) lorazepam 0.5 mg tablet 0.5 mg PO BID #60 tabs 05/25/21 05/25/21 Rx pen needle, diabetic 31 gauge x #100 ea 06/11/21 Rx 5/16" (Comfort EZ Pen Rolla) oxybutynin chloride 10 mg 10 mg PO HS #90 tabs 07/13/21 Rx tablet,extended release 24 hr atorvastatin 10 mg tablet 10 mg PO 3XWK #36 tabs 09/29/21 Rx omeprazole 20 mg capsule,delayed 20 mg PO QAM #90 caps 10/21/21 Rx release 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) Vertigo Surgical History History of appendectomy History of biopsy of temporal artery History of colonoscopy (~06/2010) History of dilation and curettage History of neurologic surgery History of total abdominal hysterectomy S/P cholecystectomy S/P knee replacement Family History Family/Other Hypertension Diabetes Cancer Adopted Heart disease Grandmother Diabetes Heart disease Grandfather Heart disease Aunt Cancer Uncle Cancer Other No pertinent family history in first degree relatives Social History Smoking Status: Former smoker Hx Alcohol Use: No Hx Substance Use: No Preferred Language: [place] Leonean Communication Ability: Effective 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 Vital signs as documented. Head exam is normocephalic atraumatic Neck is without JVD, thyromegaly, or carotid bruits. There is no stridor Lungs are poor air movement is low ventilatory volumes coarse breath sounds Cardiac exam, Rhythm is regular.. No murmurs, rubs or gallops. Abdominal exam reveals normal bowel sounds, soft non tender, no masses Extremities are trace edema but chronic venous stasis changes to her skin with stasis dermatitis Neurologic exam is able to wake up spontaneously move extremities not oriented to place or time Skin is with chronic lower extremity skin changes Results & Data Results & Data ([facility]) Vital Signs (Past 12 Hours) Vital Signs Temp Pulse Resp BP Pulse Ox O2 Del Method FiO2 04/17/22 10:00 74 20 95 04/17/22 10:00 120/59 L 04/17/22 09:30 83 30 H 95 04/17/22 09:30 123/60 04/17/22 09:27 77 32 H 94 04/17/22 09:27 122/63 04/17/22 09:26 77 32 H 94 04/17/22 09:35 77 33 H 94 55 04/17/22 09:30 99.9 F H 75 24 123/60 98 BiPAP 04/17/22 09:30 BiPAP Diagnostic Findings Chest X-Ray 04/17/22 09:32 SINGLE VIEW CHEST CLINICAL HISTORY: Dyspnea. FINDINGS: An AP, portable, upright chest radiograph is compared to study dated 02/18/2021 and correlated with chest CT dated 04/16/2018. The examination is degraded by portable technique and patient rotation. A 2-lead cardiac pacemaker is unchanged in position. The heart is enlarged indenting atherosclerotic calcification of the thoracic aorta. There is pulmonary vascular congestion with pulmonary edema . There are layering pleural effusions with dependent consolidat ion. A calcified granuloma is noted in the right midlung. No pneumothorax is seen. The skeletal structures are osteopenic. The bony thorax is grossly intact. IMPRESSION: 1. Cardiomegaly and cardiac pacemaker with evidence of congestive failure and pulmonary edema. 2. There are layering pleural effusions with dependent consolidation. This likely represents atelectasis and clinical correlation will be required. Electronically signed by: Lamont Kinney M.D. 04/17/2022 10:00 AM ECG Additional Comments: EKG shows atrial sensed ventricular paced rhythm Code Status & VTE Plan VTE Prophylaxis Plan VTE Prophylaxis will be ordered: Yes PG Care Time/CCT Total # of Minutes Spent Total Time Spent with Patient: Total time spent is greater than 50% in coordination of care (as documented) at patient's floor/unit and/or counseling patient: Coding Level of Care Code 98131 Initial Inpt Care Lvl 3 Diagnoses Acute and chronic respiratory failure with hypercapnia J96.22 Diabetes E11.9 Chronic kidney disease, stage III (moderate) N18.3 Depression F32.9 Pacemaker Z95.0
[2022-04-17 12:09] LABS: Adenovirus PCR Not Detected (NotDetected); Bordetella parapertussis PCR Not Detected (NotDetected); Bordetella pertussis PCR Not Detected (NotDetected); Chlamydia pneumoniae PCR Not Detected (NotDetected); Coronavirus 229E PCR Not Detected (NotDetected); Coronavirus CoV-2 (COVID19)PCR Not Detected (NotDetected); Coronavirus HKU1 PCR Not Detected (NotDetected); Coronavirus NL63 PCR Not Detected (NotDetected); Coronavirus OC43PCR Not Detected (NotDetected); Human Metapneumovirus PCR Not Detected (NotDetected); Influenza A PCR Not Detected (NotDetected); Influenza B PCR Not Detected (NotDetected); Mycoplasma pneumoniae PCR Not Detected (NotDetected); Parainfluenza Virus 1 PCR Not Detected (NotDetected); Parainfluenza Virus 2 PCR Not Detected (NotDetected); Parainfluenza Virus 3 PCR Not Detected (NotDetected); Parainfluenza Virus 4 PCR Not Detected (NotDetected); Respiratory Syncytial VirusPCR Not Detected (NotDetected); Rhinovirus/Enterovirus PCR Not Detected (NotDetected)
[2022-04-17] MEDS ORDERED: DEXTROSE 50% 50 ML SYRINGE IV PRN (13:14)
[2022-04-17] MEDS ORDERED: CARBOHYDRATES FOR HYPOGLYCEMIA PO PRN (13:14)
[2022-04-17] MEDS ORDERED: MICONAZOLE NITRATE POWDER 43 GM TOP PRN (13:14)
[2022-04-17] MEDS ORDERED: ONDANSETRON INJ 2 MG/ML 2 ML VIAL IV PRN (13:14)
[2022-04-17] MEDS ORDERED: GLUCOSE 10 TAB/TUBE PO PRN (13:14)
[2022-04-17] MEDS ORDERED: GLUCOSE 40% GEL 15 GM TUBE PO PRN (13:14)
[2022-04-17] MEDS ORDERED: GLUCAGON FOR INJ 1 MG VIAL SQ PRN (13:14)
[2022-04-17] MEDS ORDERED: ACETAMINOPHEN 1,000 MG/100 ML VIAL IV PRN (13:22)
[2022-04-17] MEDS ORDERED: PIPERACILLIN/TAZOBACTAM 4.5 GM in DEXTROSE 5% 100 ML IV ONE (13:30)
[2022-04-17] MEDS: INSULIN ASPART PER UNIT SC SCH ×3 (13:50→20:18)
[2022-04-17] MEDS: POTASSIUM CHLORIDE / WTR 10 MEQ/100 ML PLCT IV SCH ×3 (13:54→16:54)
[2022-04-17] MEDS: ENOXAPARIN INJ 40 MG/0.4 ML SYR SQ SCH (14:12)
[2022-04-17 15:11] LABS: Base Excess ABG 23.3 mEq/L (-9-1.8); HCO3 ABG 50 mmol/L (19-24); Oxygen Saturation ABG 93.7 % (90-95); PCO2 ABG 66 mmHg (35-46); PO2 ABG 60 mmHg (80-95); pH ABG 7.49 (7.35-7.45)
[2022-04-17 15:12] LABS: Allen Test Pos (Pos)
[2022-04-17 15:39] LABS: BUN Creatinine Ratio 23.9 (10-20); Blood Urea Nitrogen 42 mg/dl (6-23); Calcium 8.2 mg/dl (8.5-10.1); Carbon Dioxide > 45 mmol/L (21-32); Chloride 89 mmol/L (98-107); Creatinine Clr Calc Pharmacy 37.8 ml/min; Est GFR (African American) 31.8 ml/min; Est GFR (Non-African American) 27.4 ml/min; Glucose 98 mg/dl (70-99(Fasting)); Potassium 3.6 mmol/L (3.5-5.1); Sodium 139 mmol/L (136-145)
[2022-04-17] MEDS ORDERED: VANCOMYCIN CONSULT ACTIVE PRN (18:23)
--- NOTE | 2022-04-17 19:18 | Pharmacy Report ---
Pharmacy Vanc AUC Short Note - Date of Service April 17, 2022 - Assessment & Plan Assessment 77 year old F receiving IV vancomycin for treatment of positive MRSA nasal swab and pneumonia. Pertinent microbiologic data includes: * Positive MRSA Nasal Swab * Blood and urine cultures are pending Day # 1 of antimicrobial therapy Patient is also receiving Zosyn for aspiration pneumonia Plan Vancomycin * Loading dose: vancomycin 2500 mg IV x 1 (~19 mg/kg) * Maintenance dose: vancomycin 750 mg IV q24h (reduced dose due to PARMINDER) * SCr level increased from 1.65 to 1.76 today * AUC/ABBIE is the preferred PK/PD target for vancomycin * AUC guided dosing is effective and associated with decreased risk of nephrotoxicity compared to traditional trough targets * Trough level of 15.7 mcg/mL is predicted to achieve target AUC/ABBIE of 400- 600 mg/L.hr and may be associated with a 11 % risk of nephrotoxicity * Due to PARMINDER, vancomycin random level would be obtained approximately 12 hours after the first dose or sooner if the PARMINDER is not improving Pharmacy will continue to follow and will adjust dose/frequency as necessary. Thank you.
[2022-04-17] MEDS: PIPERACILLIN/TAZOBACTAM 4.5 GM in DEXTROSE 5% 100 ML IV SCH (20:57)
[2022-04-17] MEDS ORDERED: VANCOMYCIN HCL 2,500 MG in SODIUM CHLORIDE 0.9% 500 ML IV ONE (21:00)
[2022-04-17] MEDS: LANTUS PER UNIT CHARGE SQ SCH (21:00)
[2022-04-18] MEDS: PIPERACILLIN/TAZOBACTAM 4.5 GM in DEXTROSE 5% 100 ML IV SCH ×2 (02:13→11:25)
[2022-04-18] MEDS: INSULIN ASPART PER UNIT SC SCH ×4 (08:40→22:01)
[2022-04-18 08:48] LABS: Hematocrit (blood only) 35.4 % (34.1-44.9); Hemoglobin 10.8 g/dl (12.0-16.0); Mean Corpuscular Hemoglobin 27.7 pg (25.0-34.0); Mean Corpuscular Hgb Conc 30.5 g/dL (32.0-36.0); Mean Corpuscular Volume 90.8 fL (80.0-100.0); Mean Platelet Volume 10.1 fL (9.4-12.3); Platelet Count 265 K/uL (130-400); RDW Coefficient of Variation 14.1 % (11.5-14.5); White Blood Count 16.08 K/ul (4.8-10.8)
[2022-04-18] MEDS ORDERED: Flu Vaccine-High Dose (Fluzone-HD) PF 65+ 0.7mL SYR IM ONE (09:00)
[2022-04-18] MEDS: LANTUS PER UNIT CHARGE SQ SCH ×2 (09:10→22:04)
[2022-04-18] MEDS: VENLAFAXINE HCL XR 75 MG CAPXR PO SCH (09:10)
[2022-04-18] MEDS: hydroCHLOROthiazide 25 MG TAB PO SCH (09:10)
--- NOTE | 2022-04-18 10:29 | Hospitalist Progress Note ---
Date of Service April 18, 2022 Assessment & Plan (1) Acute and chronic respiratory failure with hypercapnia: Plan: Mrs. Alvarez is a 77 yo woman who a PMhx of CHF and COPD who was admitted on 04/17/22 for acute hypoxic respiratory failure after being found obtunded at [facility]. - Septic on arrival (SIRS met) - patient was hypoxic & hypercarbic and was placed on CPAP - Respiratory Acidosis with metabolic alkalosis - she has demonstrated clinic improvement, now satting 97% on 3L. wean o2 as tolerated - Repeat ABG showing persistent CO2 retention but with improvement (PCo2 76 --> 66) - As for etiology, suspect patient has PNA and/or concurrent CHF exacerbation. See management details below (2) Pneumonia: Plan: - WBC elevated to 25 on admission - Procal elevated to 1.67 on arrival. Lactate not elevated. - CXR showing laying pleural effusions with dependent consolidation. - MRSA nares positive. - Currently being treated with Vanco + Cefepime. Zosyn was added on admission for possible concurrent pseudomonal and anaerobic coverage (in the event of an aspiration event), however zosyn + vanco combo is nephrotoxic, and in the setting of her stage III CKD, Zosyn d/vianney in favor of cefepime. Given her clinical improvement, I am going to hold off on adding anaerobic coverage, but if she fails to improve or worsens, flagyl an be added. - Risk factors for MRSA and pseudomonas include recent hospitalization and residing at a group home (3) CHF (congestive heart failure): Plan: - BNP elevated to 228 on admission, not significant. May be due to underlying LVH (noted on echo from 07/2019) - Patient was given IV diuresis (lasix 80mg) in the emergency department - order for echo was placed on admission. Last echo from 07/2019 showed normal EF but with diastolic dysfunction - patient is diuretic naive - will not initiate additional diuretic therapy we will repeat an echocardiogram to assess LV systolic function (4) Leukocytosis: Plan: - WBC 23 on admission, down to 16 today - etiology: PNA vs. UTI - Urine culture growing gram neg bacilli, awaiting speciation and sensitivities - blood cultures pending, no growth to date - CXR showing layering of pleural effusions with dependent consolidation, making it difficult to delineate a focal consolidation - treating with vanco (due to positive MRSA nares) and cefepime as above. titrate abx according to cultures - trend CBC (5) Diabetes: Plan: - Patient is on on oral and injectable medications for diabetes (ie Insulin and Trulicity) - A1c 9.3 in 03/2021. repeat level pending - Her home insulin dose is Lantus 26 twice daily. Insulin level was reduced on admission as she was obtunded an unable to take in anything orally to Lantus dose to 15 units twice daily with a sliding scale. - may return to home dosing once she continues to have mroe PO intake - continue statin; not on ASA although she does not have concurrent CAD and is above 75 years - carb consistent diet (6) Chronic kidney disease, stage III (moderate): Plan: - Patient presents with acute kidney injury superimposed on chronic kidney disease stage III. - She was given a fairly reasonable dose of diuresis in the emergency department, which may be the cause. It may also be due to poor forward flow if echo reveals new onset systolic dysfunction. - Cr 1.65, increased to 1.90 - Trend BMP qam - may be responsible for elevated trop (7) COPD (chronic obstructive pulmonary disease): Plan: - history of - on chronic 2L of O2 at night only at [facility] - home regimen: Telegy Ellipta with atrovent for rescue. Continue while inpatient (Anoro and Arnuity in place of Trelegy Ellipta) - does not appear to be in exacerbation (8) Hypokalemia: Plan: - K level 3.4 today - mag level normal - may be secondary to loop diuretic dose given in ED - will hold off on replacement given concurrent PARMINDER on superimposed CKD - repeat BMP in AM (9) Urinary incontinence: Plan: - chronic problem - avelar cath placed in ED - continue home oxybutynin - apparently patient follows with urologist in [facility], has tried botox injections bladder without success (10) Elevated troponin: Plan: - Trop elevated on arrial, has since peaked and downtrended - patient declines any CP - EKG difficult to interpret due to paced rhythtm but no apparent signs of ST segment changes - likely due to demand supply mismatch and/or PARMINDER on superimposed CKD - low suspicion for ACS (11) HTN (hypertension): Plan: - continue home HCTZ (12) Depression: Plan: - continue home dose venlafaxine (13) Pacemaker: Plan: - EKG confirms continues to be paced Diet: Carb consistent Dvt ppx: Lovenox okay to use as CrCl > 30 Dispo: Downgraded to med/surg given medical stabilization. PT/OT ordered. Code: DNR/DNI Admission and Anticipated Discharge Date Admission Date: April 17, 2022 Subjective No acute events overnight. Patient began to eat breakfast while in the room. After I reoriented her, she said, " I thought I had a DNR test last week, it must not have worked." I asked if she had tried to intentionally hurt herself adn she said no. Review of Systems Review of Systems: All systems reviewed & are unremarkable except as noted in HPI & below Physical Exam Constitutional: WD/WN, vitals as above Eyes: + anicteric sclerae ENMT: external ear and nose normal, oropharynx normal Neck: trachea midline, no thyromegaly Respiratory: normal respiratory effort; no cough Auscultation: + diminished lung sounds (bilateral lung bases ) equal air movement Cardiovascular: RRR, no murmur, no edema Heart Sounds: normal S1 and normal S2 Musculoskeletal: Head/Neck/Chest: normocephalic and head atraumatic Skin: no rashes, warm and dry Neurologic: moves all extremities Psychiatric: Orientation: oriented to person; + not oriented to place and + no t oriented to time Genitourinary: Avelar catheter in place, draining yellow urine without visible blood clots Results & Data Results & Data ([facility]) Vital Signs (Past 12 Hours) Vital Signs Temp Pulse Pulse Resp BP Pulse Ox O2 Del Method 04/18/22 08:00 Nasal Cannula 04/18/22 06:39 36.7 C 76 20 133/70 99 Nasal Cannula 04/18/22 03:50 37.1 C 78 18 149/71 H 97 Nasal Cannula 04/18/22 01:10 60 04/17/22 23:21 60 32 H 92 04/17/22 22:59 37 C 60 20 151/70 H 94 Nasal Cannula O2 Flow Rate FiO2 04/18/22 08:00 5 04/18/22 06:39 04/18/22 03:50 04/18/22 01:10 04/17/22 23:21 40 04/17/22 22:59 PG Care Time/CCT Total # of Minutes Spent Total Time Spent with Patient: Total time spent is greater than 50% in coordination of care (as documented) at patient's floor/unit and/or counseling patient: Coding Level of Care Code 20300 Subseq Hosp Care Lvl 3 Diagnoses Acute and chronic respiratory failure with hypercapnia J96.22 Pneumonia J18.9 CHF (congestive heart failure) I50.9 Heart failure chronicity: acute Heart failure type: unspecified Leukocytosis D72.829 Leukocytosis type: unspecified Diabetes E11.9 Chronic kidney disease, stage III (moderate) N18.3 COPD (chronic obstructive pulmonary disease) J44.9 Hypokalemia E87.6 Urinary incontinence R32 Elevated troponin R77.8 HTN (hypertension) I10 Depression F32.9 Pacemaker Z95.0 (1) CHF (congestive heart failure) Heart failure chronicity: acute Heart failure type: unspecified Qualified Code(s): I50.9 - Heart failure, unspecified (2) Leukocytosis Leukocytosis type: unspecified Qualified Code(s): D72.829 - Elevated white blood cell count, unspecified
[2022-04-18 11:13] LABS: BUN Creatinine Ratio 24.7 (10-20); Calcium 8.7 mg/dl (8.5-10.1); Magnesium 2.1 mg/dl (1.7-2.4); Potassium 3.4 mmol/L (3.5-5.1)
[2022-04-18] MEDS: VANCOMYCIN HCL 1,000 MG in SODIUM CHLORIDE 0.9% 250 ML IV SCH (12:20)
--- NOTE | 2022-04-18 12:42 | Pharmacy Report ---
Pharmacy PK ABX Note - Date of Service April 18, 2022 - Assessment and Plan Assessment * 77 year old F receiving cefepime and vancomycin for treatment of HAP and/or aspiration PNA. * Pertinent microbiologic data includes: Positive MRSA Nasal Swab * SCr significantly elevated from baseline and increased slightly again today Plan Vancomycin * Maintenance dose: 1000 mg IV every 24 hours * Regimen is predicted to achieve *above* an AUC of 600 mg/L.hr *at steady state*. However, it will take a longer time to get to steady state given renal dysfunction. OK to be slightly more aggressive for now to ensure therapeutic levels now and may need to decrease soon. * Random level ordered for: 04/20 Pharmacy will continue to follow and will adjust dose/frequency as necessary. Thank you. Pharmacy has transitioned to AUC monitoring for vancomycin. AUC/ABBIE is the preferred PK/PD target and is associated with decreased risk of nephrotoxicity compared to traditional trough targets.
[2022-04-18] MEDS: ENOXAPARIN INJ 40 MG/0.4 ML SYR SQ SCH (12:58)
[2022-04-18] MEDS ORDERED: IPRATROPIUM BROMIDE HFA INHALER INH PRN (15:41)
[2022-04-18] MEDS: UMECLIDINIUM/VILANTEROL 62.5/25MCG 7 PUFFS/INHALER INH SCH (16:12)
[2022-04-18 16:14] LABS: A calco-baum cmplx NotReported Not Detected (NotDetected); Bact fragilis Not Reported Not Detected (NotDetected); C auris Not Reported Not Detected (NotDetected); Calbicans Not Reported Not Detected (NotDetected); Candida glabrata Not Reported Not Detected (NotDetected); Candida krusei Not Reported Not Detected (NotDetected); Cneoformans/gatti Not Reported Not Detected (NotDetected); Cparapsilosis Not Reported Not Detected (NotDetected); Ctropicalis Not Reported Not Detected (NotDetected); E cloacae compx Not Reported Not Detected (NotDetected); Efaecalis Not Reported Not Detected (NotDetected); Efaecium Not Reported Not Detected (NotDetected); Enterobacterales Not Reported Not Detected (NotDetected); Escherichia coli Not Reported Not Detected (NotDetected); H influenzae Not Reported Not Detected (NotDetected); K aerogenes Not Reported Not Detected (NotDetected); Koxytoca Not Reported Not Detected (NotDetected); Kpneumoniae grp Not Reported Not Detected (NotDetected); Lmonocyt Not Reported Not Detected (NotDetected); N meningitidis Not Reported Not Detected (NotDetected); P aeruginosa Not Reported Not Detected (NotDetected); Proteus spp Not Reported Not Detected (NotDetected); Salmonella spp Not Reported Not Detected (NotDetected); Smarcescens Not Reported Not Detected (NotDetected); Staph lugdunensis Not Reported Not Detected (NotDetected); Staphaureus Not Reported Not Detected (NotDetected); Staphepi Not Reported Not Detected (NotDetected); Staphylococcus spp. DETECTED (NotDetected); Stenmaltophilia Not Reported Not Detected (NotDetected); Strep agal(GrpB) Not Reported Not Detected (NotDetected); Strep pneum Not Reported Not Detected (NotDetected); Strep pyog (GrpA) Not Reported Not Detected (NotDetected); Strep spp Not Reported Not Detected (NotDetected)
[2022-04-18 16:26] LABS: Staph spp. Not Reported DETECTED (NotDetected)
[2022-04-18] MEDS: CEFEPIME 2,000 MG in SYRINGE 0 ML IV SCH (17:57)
[2022-04-18] MEDS ORDERED: CEFEPIME 2,000 MG in SYRINGE 0 ML IV SCH (18:00)
[2022-04-18] MEDS ORDERED: VANCOMYCIN HCL 750 MG in SODIUM CHLORIDE 0.9% 250 ML IV SCH (21:00)
--- NOTE | 2022-04-18 22:02 | Electrocardiogram Report ---
Test Reason : Blood Pressure : / mmHG Vent. Rate : 078 BPM Atrial Rate : 078 BPM P-R Int : 222 ms QRS Dur : 192 ms QT Int : 446 ms P-R-T Axes : 055 -78 101 degrees QTc Int : 508 ms Atrial-sensed ventricular-paced rhythm with prolonged AV conduction Abnormal ECG When compared with ECG of 24-FEB-2021 12:39, Premature ventricular complexes are no longer Present Vent. rate has decreased BY 8 BPM Confirmed by Augusto Villar ([id number]) on 04/18/2022 10:01:44 PM Referred By: Confirmed By:Augusto Villar
[2022-04-18] MEDS: LORazepam 0.5 MG TAB PO PRN (22:04)
[2022-04-19 02:20] LABS: A calco-baum cmplx NotReported Not Detected (NotDetected); Bact fragilis Not Reported Not Detected (NotDetected); C auris Not Reported Not Detected (NotDetected); Calbicans Not Reported Not Detected (NotDetected); Candida glabrata Not Reported Not Detected (NotDetected); Candida krusei Not Reported Not Detected (NotDetected); Cneoformans/gatti Not Reported Not Detected (NotDetected); Cparapsilosis Not Reported Not Detected (NotDetected); Ctropicalis Not Reported Not Detected (NotDetected); E cloacae compx Not Reported Not Detected (NotDetected); Efaecalis Not Reported Not Detected (NotDetected); Efaecium Not Reported Not Detected (NotDetected); Enterobacterales Not Reported Not Detected (NotDetected); Escherichia coli Not Reported Not Detected (NotDetected); H influenzae Not Reported Not Detected (NotDetected); K aerogenes Not Reported Not Detected (NotDetected); Koxytoca Not Reported Not Detected (NotDetected); Kpneumoniae grp Not Reported Not Detected (NotDetected); Lmonocyt Not Reported Not Detected (NotDetected); N meningitidis Not Reported Not Detected (NotDetected); P aeruginosa Not Reported Not Detected (NotDetected); Proteus spp Not Reported Not Detected (NotDetected); Salmonella spp Not Reported Not Detected (NotDetected); Smarcescens Not Reported Not Detected (NotDetected); Staph lugdunensis Not Reported Not Detected (NotDetected); Staph spp. Not Reported Not Detected (NotDetected); Staphaureus Not Reported Not Detected (NotDetected); Staphepi Not Reported Not Detected (NotDetected); Stenmaltophilia Not Reported Not Detected (NotDetected); Strep agal(GrpB) Not Reported Not Detected (NotDetected); Strep pneum Not Reported Not Detected (NotDetected); Strep pyog (GrpA) Not Reported Not Detected (NotDetected); Strep spp Not Reported Not Detected (NotDetected)
--- NOTE | 2022-04-19 05:56 | Electrocardiogram Report ---
Test Reason : Blood Pressure : / mmHG Vent. Rate : 069 BPM Atrial Rate : 069 BPM P-R Int : 226 ms QRS Dur : 192 ms QT Int : 480 ms P-R-T Axes : 048 -69 102 degrees QTc Int : 514 ms Atrial-sensed ventricular-paced rhythm Abnormal ECG When compared with ECG of 17-APR-2022 09:24, (unconfirmed) Vent. rate has decreased BY 9 BPM Confirmed by Augusto Villar ([id number]) on 04/19/2022 5:56:22 AM Referred By: REFERRED SELF Confirmed By:Augusto Villar
[2022-04-19] MEDS: CEFEPIME 2,000 MG in SYRINGE 0 ML IV SCH (06:15)
[2022-04-19] MEDS ORDERED: PERFLUTREN LIPID MICROSPHERE (DEFINITY) IV ONE (07:08)
[2022-04-19 07:16] LABS: Estimated Average Glucose 126 mg/dl
[2022-04-19 08:43] LABS: Hematocrit (blood only) 34.7 % (34.1-44.9); Hemoglobin 10.7 g/dl (12.0-16.0); Mean Corpuscular Hemoglobin 27.9 pg (25.0-34.0); Mean Corpuscular Hgb Conc 30.8 g/dL (32.0-36.0); Mean Corpuscular Volume 90.6 fL (80.0-100.0); Mean Platelet Volume 10.2 fL (9.4-12.3); Platelet Count 267 K/uL (130-400); RDW Coefficient of Variation 13.8 % (11.5-14.5); RDW Standard Deviation 46.3 fL (36.4-46.3); Red Blood Count 3.83 M/uL (3.93-5.22)
[2022-04-19] MEDS: FLUTICASONE FUROATE 200MCG 14 PUFFS/INHALER INH SCH (08:46)
[2022-04-19] MEDS: UMECLIDINIUM/VILANTEROL 62.5/25MCG 7 PUFFS/INHALER INH SCH (08:46)
[2022-04-19] MEDS: VENLAFAXINE HCL XR 75 MG CAPXR PO SCH (08:47)
[2022-04-19] MEDS: hydroCHLOROthiazide 25 MG TAB PO SCH (08:48)
[2022-04-19] MEDS: INSULIN ASPART PER UNIT SC SCH ×4 (09:05→21:30)
[2022-04-19] MEDS: LANTUS PER UNIT CHARGE SQ SCH ×2 (09:06→21:31)
--- NOTE | 2022-04-19 09:12 | XCELERA ---
[id number]
[2022-04-19 09:43] LABS: BUN Creatinine Ratio 30.5 (10-20); Calcium 8.3 mg/dl (8.5-10.1); Creatinine Clr Calc Pharmacy 51.9 ml/min; Est GFR (African American) 46.7 ml/min; Est GFR (Non-African American) 40.3 ml/min; Potassium 3.1 mmol/L (3.5-5.1)
[2022-04-19] MEDS: ERTAPENEM SODIUM 1,000 MG in SYRINGE 0 ML IV SCH (11:46)
[2022-04-19] MEDS: POTASSIUM CHLORIDE / WTR 10 MEQ/100 ML PLCT IV SCH ×3 (12:11→18:41)
[2022-04-19] MEDS: VANCOMYCIN HCL 1,000 MG in SODIUM CHLORIDE 0.9% 250 ML IV SCH (13:48)
[2022-04-19] MEDS: ENOXAPARIN INJ 40 MG/0.4 ML SYR SQ SCH (15:13)
--- NOTE | 2022-04-19 19:45 | Hospitalist Progress Note ---
Date of Service April 19, 2022 Assessment & Plan (1) Infection due to ESBL-producing Escherichia coli: Plan: ERTRAPENEM day 0. (UTI) (2) ARF (acute renal failure): Plan: With significant metabolic alkalosis from aggressive diuresis Hypokalemiareplace Kaggressively diuresed in the ED and I suspect also as an outpatient patient presents with significant acute kidney injury Last labs available are from March 2021 when creatinine was normal 0.96 to 1.12. Encourage p.o. fluids. Gentle hydration ( 80 ml/hr total one litre iv) to improve ARF and contraction metabolic alkalosis (3) COPD (chronic obstructive pulmonary disease): Plan: Diagnosis on admission was acute on chronic respiratory failure with possible pneumonia . The patient has no respiratory symptoms. 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 Daughter reports significant leg swelling in the last week or 2 in the snf facility. I think she was over diuresed there. Her dizziness had worsened and she has significant contraction metabolic alkalosis. At this time the patient is hypovolemic Her altered mental status at admission was likely from the UTI (4) HFrEF (heart failure with reduced ejection fraction): Plan: Newly diagnosed EF 45%was normal at last echo. Also grade 1 diastolic dysfunction. Start SHERRI inhibitor for blood pressure control once renal function improves. Home med rec is yet unconfirmed 2 days after admission. Will request nursing to get list from SNF. On the HCTZ is on the list and that to is uncertain. Discontinue HCTZ and start low-dose amlodipine for blood pressure control till we can start SHERRI inhibitor (5) Diabetes: Plan: 148, 101, 139, 153 Patient is on on oral and injectable medications for diabetes. She is typically is on Lantus 26 twice daily at homereduced here to 15 units twice daily and doing fine. Well-controlled diabetes hemoglobin A1c 6% Of note blood sugars 99, 98 on first arrival to the ED. (6) Depression: Plan: On home venlafaxine (7) Pacemaker: Plan: EKG confirms continues to be paced Plan Son confirmed to admitting doctor that she is DNR, Lovenox was used for DVT prevention Diagnosis and plan discussed with family around noon today and her questions were answered. Daughter and two grandchildren as well as her son Lamont were at the bedside Once euvolemic, plan discharge to SNF/where she came from Admission and Anticipated Discharge Date Admission Date: April 17, 2022 Subjective seen at 1145 w 4 family members in room Daughter reports that the patient has recently had a downhill course of health in the last few weeks. Legs are considerably swollen for the last couple of weeks she has been more dizzy in the last 2 weeks. Has chronic dizziness dating back to few years per the patient and that involves head spinning. This is got worse recently. She was using oxygen 2 L at night but for the last week or so has been asked to use it all the time in her snf facility. No cough or chest pain. Has COPD Also feels weak Had some dysuria. 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 crude touchdistal 1/3 rd of the right foot-plantar as well as dorsal aspect, diminished crude sensation in spots over the left foot Bard-Hallpike maneuver not done today Results & Data Results & Data ([facility]) Laboratory Results Abnormal lab results 04/18/22 04/18/22 04/19/22 Range/Units 08:23 20:39 07:52 RBC 3.83 L (3.93-5.22) M/uL Hgb 10.7 L (12.0-16.0) g/dl MCHC 30.8 L (32.0-36.0) g/dL Potassium (3.5-5.1) mmol/L Chloride (98-107) mmol/L Carbon Dioxide (21-32) mmol/L BUN (6-23) mg/dl Creatinine (0.6-1.2) mg/dl BUN/Creatinine Ratio (10-20) Glucose (70-99(Fasting)) mg/dl POC Glucose 139 H (70-99) mg/dl Hemoglobin A1c 6.0 H (4.5-5.6) % Calcium (8.5-10.1) mg/dl 04/19/22 04/19/22 04/19/22 Range/Units 07:52 07:57 12:06 RBC (3.93-5.22) M/uL Hgb (12.0-16.0) g/dl MCHC (32.0-36.0) g/dL Potassium 3.1 L (3.5-5.1) mmol/L Chloride 90 L (98-107) mmol/L Carbon Dioxide 43 H* (21-32) mmol/L BUN 39 H (6-23) mg/dl Creatinine 1.28 H D (0.6-1.2) mg/dl BUN/Creatinine Ratio 30.5 H (10-20) Glucose 107 H (70-99(Fasting)) mg/dl POC Glucose 101 H 135 H (70-99) mg/dl Hemoglobin A1c (4.5-5.6) % Calcium 8.3 L (8.5-10.1) mg/dl 04/19/22 Range/Units 16:48 RBC (3.93-5.22) M/uL Hgb (12.0-16.0) g/dl MCHC (32.0-36.0) g/dL Potassium (3.5-5.1) mmol/L Chloride (98-107) mmol/L Carbon Dioxide (21-32) mmol/L BUN (6-23) mg/dl Creatinine (0.6-1.2) mg/dl BUN/Creatinine Ratio (10-20) Glucose (70-99(Fasting)) mg/dl POC Glucose 148 H (70-99) mg/dl Hemoglobin A1c (4.5-5.6) % Calcium (8.5-10.1) mg/dl Diagnostic Findings 04/17/22 10:07 Aerobic Blood Culture - Preliminary Blood No growth in Aerobic bottle after 48 hours. Anaerobic Blood Culture - Preliminary No growth in Anaerobic bottle after 48 hours. 04/17/22 09:30 Aerobic Blood Culture - Preliminary Blood Coag neg staph not lugdunensis Anaerobic Blood Culture - Preliminary Gram positive bacilli 04/17/22 09:50 Urine Culture - Final Urine,Straight Cath Escherichia coli ESBL 04/19/22 04/19/22 04/19/22 16:48 12:06 07:57 WBC RBC Hgb Hct MCV MCH MCHC RDW Std Deviation RDW Coeff of Iman Plt Count MPV Sodium Potassium Chloride Carbon Dioxide Anion Gap BUN Creatinine Est Cr Clr Drug Dosing Est GFR ( Amer) Est GFR (Non-Af Amer) BUN/Creatinine Ratio Glucose POC Glucose 148 H 135 H 101 H Estimat Average Glucose Hemoglobin A1c Calcium Magnesium Bld Cult ID Panel PCR 04/19/22 04/19/22 04/19/22 07:52 07:52 01:04 WBC 10.60 RBC 3.83 L Hgb 10.7 L Hct 34.7 MCV 90.6 MCH 27.9 MCHC 30.8 L RDW Std Deviation 46.3 RDW Coeff of Iman 13.8 Plt Count 267 MPV 10.2 Sodium 138 Potassium 3.1 L Chloride 90 L Carbon Dioxide 43 H* Anion Gap 5 BUN 39 H Creatinine 1.28 H D Est Cr Clr Drug Dosing 51.9 Est GFR ( Amer) 46.7 Est GFR (Non-Af Amer) 40.3 BUN/Creatinine Ratio 30.5 H Glucose 107 H POC Glucose Estimat Average Glucose Hemoglobin A1c Calcium 8.3 L Magnesium 2.0 Bld Cult ID Panel PCR PCR Panel Negative 04/18/22 04/18/22 20:39 08:23 WBC RBC Hgb Hct MCV MCH MCHC RDW Std Deviation RDW Coeff of Iman Plt Count MPV Sodium Potassium Chloride Carbon Dioxide Anion Gap BUN Creatinine Est Cr Clr Drug Dosing Est GFR ( Amer) Est GFR (Non-Af Amer) BUN/Creatinine Ratio Glucose POC Glucose 139 H Estimat Average Glucose 126 Hemoglobin A1c 6.0 H Calcium Magnesium Bld Cult ID Panel PCR Medications Administered Home Medications Medication Instructions Recorded Confirmed Last Taken lancets 30 gauge (PrimeSenseTouch [facility] #25 ea 11/24/18 04/07/21 Unknown Lancets) miconazole nitrate 2 % topical 1 applic topical BID PRN Skin 10/07/20 04/07/21 Unknown powder (Desenex) Irritation triamcinolone acetonide 0.1 % 1 appln topical BID PRN Skin 10/07/20 04/07/21 02/23/21 topical ointment Irritation cetirizine 10 mg tablet (Zyrtec) 5 mg PO QAM PRN itching 02/24/21 04/07/21 02/23/21 hydrochlorothiazide 25 mg tablet 25 mg PO QAM 02/24/21 04/07/21 03/23/21 dulaglutide 1.5 mg/0.5 mL See Rx Instructions .Route 04/06/21 04/07/21 Unknown subcutaneous pen injector .COMPLEX #2 mL (Trulicity) fluticasone fur. 200 mcg-umeclid 1 inh inhalation QAM #60 ea 04/06/21 04/07/21 Unknown 62.5 mcg-vilant 25 mcg inhalat.powder (Trelegy Ellipta) ipratropium bromide 17 1 puff inhalation TID PRN 04/06/21 04/07/21 Unknown mcg/actuation HFA aerosol inhaler Shortness Of Breath #12.9 grams (Atrovent HFA) turmeric 400 mg capsule 400 mg PO DAILY #30 caps 04/06/21 04/07/21 Unknown venlafaxine 75 mg capsule,extended 225 mg PO QAM #90 caps 04/06/21 04/07/21 Unknown release 24 hr insulin glargine 100 unit/mL (3 26 unit (0.26 mL) subcut BID #15 mL 05/06/21 Unknown mL) subcutaneous pen (Lantus Solostar U-100 Insulin) lorazepam 0.5 mg tablet 0.5 mg PO BID #60 tabs 05/25/21 05/25/21 Unknown pen needle, diabetic 31 gauge x #100 ea 06/11/21 Unknown 5/16" (Comfort EZ Pen [place]) oxybutynin chloride 10 mg 10 mg PO HS #90 tabs 07/13/21 Unknown tablet,extended release 24 hr atorvastatin 10 mg tablet 10 mg PO 3XWK #36 tabs 09/29/21 Unknown omeprazole 20 mg capsule,delayed 20 mg PO QAM #90 caps 10/21/21 Unknown release Active Medications Generic Name Dose Route Start Last Admin Trade Name Freq PRN Reason Stop Dose Admin Enoxaparin Sodium 40 mg 04/17/22 13:30 04/19/22 15:13 Enoxaparin Inj 40 Mg/0.4 Ml Syr SQ 05/17/22 13:29 40 mg Q24H TERI Administration Fluticasone Furoate 1 puffs 04/19/22 15:45 04/19/22 08:46 Fluticasone Furoate 200mcg 14 Puffs/Inhaler INH 05/19/22 15:44 1 puffs DAILY TERI Administration Hydrochlorothiazide 25 mg 04/18/22 09:00 04/19/22 08:48 Hydrochlorothiazide 25 Mg Tab PO 05/18/22 08:59 25 mg QAM TERI Administration Vancomycin HCl 1,000 mg/ 270 mls @ 200 mls/hr 04/18/22 12:00 04/19/22 15:14 Sodium Chloride IV 04/25/22 11:59 Infused DAILY@1200 [facility] Infusion Protocol Ertapenem 1,000 mg/ Syringe 10 mls @ 2 mls/min 04/19/22 10:00 04/19/22 11:46 IV 04/29/22 09:59 2 mls/min DAILY@0900 TERI Administration Insulin Aspart 0 units 04/17/22 13:14 04/19/22 18:42 Insulin Aspart Per Unit SC 05/17/22 13:13 4 units ACHS TERI Administration Insulin Glargine 15 units 04/17/22 21:00 04/19/22 09:06 Lantus Per Unit Charge SQ 05/17/22 20:59 15 units BID TERI Administration Lorazepam 0.5 mg 04/17/22 13:14 04/18/22 22:04 Lorazepam 0.5 Mg Tab PO 05/17/22 13:13 0.5 mg Q8H PRN Administration Anxiety Umeclidinium/Vilanterol 1 puffs 04/18/22 15:45 04/19/22 08:46 Umeclidinium/Vilanterol 62.5/25mcg 7 Puffs/Inhaler INH 05/18/22 15:44 1 puffs DAILY TERI Administration Venlafaxine HCl 225 mg 04/18/22 09:00 04/19/22 08:47 Venlafaxine Hcl Xr 75 Mg Capxr PO 05/18/22 08:59 225 mg QAM TERI Administration PG Care Time/CCT Total # of Minutes Spent Total Time Spent with Patient: Total time spent is greater than 50% in coordination of care (as documented) at patient's floor/unit and/or counseling patient: Coding Level of Care Code 29300 Subseq Hosp Care Lvl 3 Diagnoses Infection due to ESBL-producing Escherichia coli A49.8; Z16.12 ARF (acute renal failure) N17.9 COPD (chronic obstructive pulmonary disease) J44.9 HFrEF (heart failure with reduced ejection fraction) I50.20 Diabetes E11.9 Depression F32.9 Pacemaker Z95.0
[2022-04-19] MEDS ORDERED: LACTATED RINGER'S 1,000 ML IV SCH (20:15)
[2022-04-19] MEDS: LORazepam 0.5 MG TAB PO PRN (21:37)
[2022-04-20] MEDS: LANTUS PER UNIT CHARGE SQ SCH ×2 (08:55→22:39)
[2022-04-20] MEDS: INSULIN ASPART PER UNIT SC SCH ×3 (08:55→17:44)
[2022-04-20] MEDS: VENLAFAXINE HCL XR 75 MG CAPXR PO SCH (08:59)
[2022-04-20] MEDS: FLUTICASONE FUROATE 200MCG 14 PUFFS/INHALER INH SCH (09:00)
[2022-04-20] MEDS: UMECLIDINIUM/VILANTEROL 62.5/25MCG 7 PUFFS/INHALER INH SCH (09:00)
[2022-04-20] MEDS ORDERED: amLODIPine BESYLATE 5 MG TAB PO SCH (09:00)
[2022-04-20] MEDS: ERTAPENEM SODIUM 1,000 MG in SYRINGE 0 ML IV SCH (09:16)
[2022-04-20] MEDS: MUPIROCIN 2% OINT 22 GM TUBE EXT SCH ×3 (09:17→17:05)
[2022-04-20 10:11] LABS: Hematocrit (blood only) 35.4 % (34.1-44.9); Mean Corpuscular Hemoglobin 27.8 pg (25.0-34.0); Mean Corpuscular Hgb Conc 31.1 g/dL (32.0-36.0); Mean Corpuscular Volume 89.4 fL (80.0-100.0); Mean Platelet Volume 10.4 fL (9.4-12.3); Platelet Count 284 K/uL (130-400); RDW Coefficient of Variation 13.5 % (11.5-14.5); RDW Standard Deviation 44.3 fL (36.4-46.3); Red Blood Count 3.96 M/uL (3.93-5.22); White Blood Count 8.81 K/ul (4.8-10.8)
[2022-04-20 10:48] LABS: BUN Creatinine Ratio 29.8 (10-20); Calcium 9.1 mg/dl (8.5-10.1); Creatinine Clr Calc Pharmacy 70.7 ml/min; Est GFR (African American) 67.8 ml/min; Est GFR (Non-African American) 58.5 ml/min; Magnesium 1.9 mg/dl (1.7-2.4); Potassium 3.4 mmol/L (3.5-5.1)
[2022-04-20] MEDS ORDERED: POTASSIUM CHLORIDE CRTAB 20 MEQ TABCR PO STA (12:19)
[2022-04-20] MEDS: ENOXAPARIN INJ 40 MG/0.4 ML SYR SQ SCH (13:14)
--- NOTE | 2022-04-20 19:43 | Hospitalist Progress Note ---
Date of Service April 20, 2022 Assessment & Plan (1) Infection due to ESBL-producing Escherichia coli: Plan: ERTRAPENEM day 1. Will complete three days-uncomplicated UTI. (UTI) (2) ARF (acute renal failure): Plan: With significant metabolic alkalosis from aggressive diuresis Hypokalemiareplace Kaggressively diuresed in the ED and I suspect also as an outpatient patient presents with significant acute kidney injury Last labs available are from March 2021 when creatinine was normal 0.96 to 1.12. Encourage p.o. fluids. Gentle hydration resolved ARF by 04/20 am Current high bicarb indicates compensation for chronic respiratory acidosis it appears. I did not repeat ABGs to confirm this (3) COPD (chronic obstructive pulmonary disease): Plan: Diagnosis on admission was acute on chronic respiratory failure with possible pneumonia . The patient has no respiratory symptoms. 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 Daughter reports significant leg swelling in the last week or 2 in the shelter facility. I think she was over diuresed there. Her dizziness had worsened and she has significant contraction metabolic alkalosis. At this time the patient is hypovolemic Her altered mental status at admission was likely from the UTI (4) HFrEF (heart failure with reduced ejection fraction): Plan: Newly diagnosed EF 45%was normal at last echo. Also grade 1 diastolic dysfunction. Start SHERRI inhibitor for blood pressure control once renal function improves. Home med rec is yet unconfirmed 2 days after admission. Trying to get SNF med list. No one answered the phone when nurse called SNF this morning Now that renal function is normalized, stop amlodipine started yesterday and start SHERRI inhibitora new medication for her as far as we know since home med list uncertain and she is sure she is not taking antihypertensives at home. (5) Diabetes: Plan: 148, 101, 139, 153 Patient is on on oral and injectable medications for diabetes. She is typically is on Lantus 26 twice daily at homereduced here to 15 units twice daily and doing fine. Stop sliding scale insulin Well-controlled diabetes hemoglobin A1c 6% Of note blood sugars 99, 98 on first arrival to the ED. (6) Depression: Plan: On home venlafaxine (7) Pacemaker: Plan: EKG confirms continues to be paced Plan Son confirmed to admitting doctor that she is DNR Patient reasserted that 04/20 Once euvolemic, plan discharge to SNF/where she came from. Admission and Anticipated Discharge Date Admission Date: April 17, 2022 Subjective (seen at noon), patient felt she was less foggy and able to think straight. She was doing a picture puzzle, expressed worry about her son who is about to go to [facility], her other son Lamont's family was in the room yesterday when I met them. Denies chest pain/shortness of breath/nausea/vomiting Has chronic urinary incontinence but does not have any indwelling catheters Occasional cough which is attributed to her COPD and quit smoking 7 years ago, does not think she is on any BP meds at this time. Was seeing a doctor Dr Obando for primary care to 1 year ago when she started getting hospital hospitalized and eventually went to [facility] where she has been for a year. We have been unable to obtain a medication list from [facility] yet. Physical Exam Physical Exam: Severely obese lady sitting up in bed, working on a picture puzzle, well oriented to person and and place, fairly lucid historian 94% 2 L nasal cannula Head and neck dry tongue Chest clear to auscultation CVS S1-S2 heard Obese large pannus Extremities stasis dermatitis changes with indurated skin lower legs with erythema bilateral equal area DREDGE DECKHAND grossly intact Results & Data Results & Data ([facility]) Vital Signs (Past 12 Hours) Vital Signs Temp Pulse Resp BP Pulse Ox O2 Del Method O2 Flow Rate 04/20/22 14:54 36.9 C 70 16 152/68 H 94 Nasal Cannula 2 Laboratory Results Abnormal lab results 04/19/22 04/20/22 04/20/22 Range/Units 20:35 08:13 09:12 Hgb 11.0 L (12.0-16.0) g/dl MCHC 31.1 L (32.0-36.0) g/dL Potassium (3.5-5.1) mmol/L Chloride (98-107) mmol/L Carbon Dioxide (21-32) mmol/L BUN (6-23) mg/dl BUN/Creatinine Ratio (10-20) Glucose (70-99(Fasting)) mg/dl POC Glucose 173 H 111 H (70-99) mg/dl 04/20/22 04/20/22 04/20/22 Range/Units 09:12 11:51 16:46 Hgb (12.0-16.0) g/dl MCHC (32.0-36.0) g/dL Potassium 3.4 L (3.5-5.1) mmol/L Chloride 92 L (98-107) mmol/L Carbon Dioxide 44 H* (21-32) mmol/L BUN 28 H (6-23) mg/dl BUN/Creatinine Ratio 29.8 H (10-20) Glucose 126 H (70-99(Fasting)) mg/dl POC Glucose 154 H 122 H (70-99) mg/dl Medications Administered Home Medications Medication Instructions Recorded Confirmed Last Taken lancets 30 gauge (OneTouch [employer] #25 ea 11/24/18 04/07/21 Unknown Lancets) miconazole nitrate 2 % topical 1 applic topical BID PRN Skin 10/07/20 04/20/22 Unknown powder (Desenex) Irritation triamcinolone acetonide 0.1 % 1 appln topical BID PRN Skin 10/07/20 04/20/22 02/23/21 topical ointment Irritation cetirizine 10 mg tablet (Zyrtec) 5 mg PO QAM PRN itching 02/24/21 04/20/22 02/23/21 hydrochlorothiazide 25 mg tablet 25 mg PO QAM 02/24/21 04/20/22 03/23/21 dulaglutide 1.5 mg/0.5 mL See Rx Instructions .Route 04/06/21 04/20/22 Unknown subcutaneous pen injector .COMPLEX #2 mL (Trulicity) fluticasone fur. 200 mcg-umeclid 1 inh inhalation QAM #60 ea 04/06/21 04/20/22 Unknown 62.5 mcg-vilant 25 mcg inhalat.powder (Trelegy Ellipta) ipratropium bromide 17 1 puff inhalation TID PRN 04/06/21 04/20/22 Unknown mcg/actuation HFA aerosol inhaler Shortness Of Breath #12.9 grams (Atrovent HFA) turmeric 400 mg capsule 400 mg PO DAILY #30 caps 04/06/21 04/20/22 Unknown venlafaxine 75 mg capsule,extended 225 mg PO QAM #90 caps 04/06/21 04/20/22 Unknown release 24 hr insulin glargine 100 unit/mL (3 26 unit (0.26 mL) subcut BID #15 mL 05/06/21 04/20/22 Unknown mL) subcutaneous pen (Lantus Solostar U-100 Insulin) lorazepam 0.5 mg tablet 0.5 mg PO BID #60 tabs 05/25/21 04/20/22 Unknown pen needle, diabetic 31 gauge x #100 ea 06/11/21 Unknown /16" (Comfort EZ Pen [place]) oxybutynin chloride 10 mg 10 mg PO HS #90 tabs 07/13/21 04/20/22 Unknown tablet,extended release 24 hr atorvastatin 10 mg tablet 10 mg PO 3XWK #36 tabs 09/29/21 04/20/22 Unknown omeprazole 20 mg capsule,delayed 20 mg PO QAM #90 caps 10/21/21 04/20/22 Unknown release Active Medications Generic Name Dose Route Start Last Admin Trade Name Freq PRN Reason Stop Dose Admin Amlodipine Besylate 5 mg 04/20/22 09:00 04/20/22 09:16 Amlodipine Besylate 5 Mg Tab PO 05/20/22 08:59 5 mg QAM TERI Administration Enoxaparin Sodium 40 mg 04/17/22 13:30 04/20/22 13:14 Enoxaparin Inj 40 Mg/0.4 Ml Syr SQ 05/17/22 13:29 40 mg Q24H TERI Administration Fluticasone Furoate 1 puffs 04/19/22 15:45 04/20/22 09:00 Fluticasone Furoate 200mcg 14 Puffs/Inhaler INH 05/19/22 15:44 1 puffs DAILY TERI Administration Ertapenem 1,000 mg/ Syringe 10 mls @ 2 mls/min 04/19/22 10:00 04/20/22 09:16 IV 04/29/22 09:59 2 mls/min DAILY@0900 TERI Administration Insulin Aspart 0 units 04/17/22 13:14 04/20/22 17:44 Insulin Aspart Per Unit SC 05/17/22 13:13 4 units ACHS TERI Administration Insulin Glargine 15 units 04/17/22 21:00 04/20/22 08:55 Lantus Per Unit Charge SQ 05/17/22 20:59 15 units BID TERI Administration Lorazepam 0.5 mg 04/17/22 13:14 04/19/22 21:37 Lorazepam 0.5 Mg Tab PO 05/17/22 13:13 0.5 mg Q8H PRN Administration Anxiety Mupirocin 1 appln 04/20/22 08:00 04/20/22 17:05 Mupirocin 2% Oint 22 Gm Tube EXT 05/20/22 07:59 1 appln [id number] TERI Administration Umeclidinium/Vilanterol 1 puffs 04/18/22 15:45 04/20/22 09:00 Umeclidinium/Vilanterol 62.5/25mcg 7 Puffs/Inhaler INH 05/18/22 15:44 1 puffs DAILY TERI Administration Venlafaxine HCl 225 mg 04/18/22 09:00 04/20/22 08:59 Venlafaxine Hcl Xr 75 Mg Capxr PO 05/18/22 08:59 225 mg QAM TERI Administration PG Care Time/CCT Total # of Minutes Spent Total Time Spent with Patient: Total time spent is greater than 50% in coordination of care (as documented) at patient's floor/unit and/or counseling patient: Coding Level of Care Code 17989 Subseq Hosp Care Lvl 3 Diagnoses Infection due to ESBL-producing Escherichia coli A49.8; Z16.12 ARF (acute renal failure) N17.9 COPD (chronic obstructive pulmonary disease) J44.9 HFrEF (heart failure with reduced ejection fraction) I50.20 Diabetes E11.9 Depression F32.9 Pacemaker Z95.0
[2022-04-21] MEDS: UMECLIDINIUM/VILANTEROL 62.5/25MCG 7 PUFFS/INHALER INH SCH (08:24)
[2022-04-21] MEDS: VENLAFAXINE HCL XR 75 MG CAPXR PO SCH (08:24)
[2022-04-21] MEDS: FLUTICASONE FUROATE 200MCG 14 PUFFS/INHALER INH SCH (08:24)
[2022-04-21] MEDS: MUPIROCIN 2% OINT 22 GM TUBE EXT SCH ×3 (08:25→14:47)
[2022-04-21] MEDS: ERTAPENEM SODIUM 1,000 MG in SYRINGE 0 ML IV SCH (08:30)
[2022-04-21] MEDS: lisinopril 20 MG TAB PO SCH (08:30)
[2022-04-21 08:33] LABS: Hematocrit (blood only) 37.4 % (34.1-44.9); Hemoglobin 11.4 g/dl (12.0-16.0); Mean Corpuscular Hemoglobin 27.7 pg (25.0-34.0); Mean Corpuscular Hgb Conc 30.5 g/dL (32.0-36.0); Mean Platelet Volume 10.1 fL (9.4-12.3); Platelet Count 263 K/uL (130-400); RDW Coefficient of Variation 13.5 % (11.5-14.5); RDW Standard Deviation 44.6 fL (36.4-46.3); Red Blood Count 4.11 M/uL (3.93-5.22); White Blood Count 7.55 K/ul (4.8-10.8)
[2022-04-21] MEDS: LANTUS PER UNIT CHARGE SQ SCH ×2 (08:59→20:45)
[2022-04-21 09:01] LABS: BUN Creatinine Ratio 26.1 (10-20); Calcium 8.8 mg/dl (8.5-10.1); Creatinine Clr Calc Pharmacy 75.5 ml/min; Est GFR (African American) 73.5 ml/min; Est GFR (Non-African American) 63.4 ml/min; Potassium 3.4 mmol/L (3.5-5.1)
[2022-04-21] MEDS: POTASSIUM CHLORIDE 10 MEQ TABCR PO SCH (11:46)
[2022-04-21] MEDS: ENOXAPARIN INJ 40 MG/0.4 ML SYR SQ SCH (14:47)
--- NOTE | 2022-04-21 15:52 | Hospitalist Progress Note ---
Date of Service April 21, 2022 Assessment & Plan (1) Infection due to ESBL-producing Escherichia coli: Plan: ERTRAPENEM day 2 of 3, for uncomplicated UTI (2) ARF (acute renal failure): Plan: Present on admission. Now resolved with fluid rehydration. Monitor intake and output. Serial labs (3) COPD (chronic obstructive pulmonary disease): Plan: Diagnosis on admission was acute on chronic respiratory failure with possible pn eumonia . The patient has no respiratory symptoms. COPD stablehome oxygen dependent 2 L. Stopped vancomycin. 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 Her ABGs on admission showed metabolic alkalosis and chronic respiratory acidosis. Possible [facility] facility. She has contraction metabolic alkalosis and compensated respiratory acidosis producing elevated bicarb levels. (4) HFrEF (heart failure with reduced ejection fraction): Plan: Newly diagnosed EF 45%was normal at last echo. Also grade 1 diastolic dysfunction. Started SHERRI inhibitor this admission. Amlodipine has been d iscontinued. (5) Diabetes: Plan: Controlled. ADA diet.Patient is on on oral and injectable medications for diabetes. She is typically is on Lantus 26 twice daily at homereduced here to 15 units twice daily . Well-controlled- hemoglobin A1c 6% (6) Depression: Plan: Stable on venlafaxine (7) Pacemaker: Plan: EKG confirms paced rhythm Plan Eventual discharge to SNF. She previously was at [facility] but family is requesting admission to [place] care which is pending. Admission and Anticipated Discharge Date Admission Date: April 17, 2022 Subjective Alert and oriented. No acute distress. Lengthy discussion with her son at the bedside. Oral potassium added only once daily since she was just started on an SHERRI inhibitor this admission. Potassium remains low at 3.4. Currently on ertapenem, day 2 of 3 for the ESBL E. coli UTI. Review of Systems Review of Systems: Constitutional-no fever or chills ENT-no blurred vision, no double vision, no epistaxis, no sore throat Respiratory-no cough, no wheezing, no shortness of breath Cardiac-no palpitations, no chest pain, no syncope GI-no nausea, vomiting, diarrhea, melena, hematochezia -no urinary retention, no urinary incontinence, no dysuria, no hematuria Musculoskeletal-no joint pain, no muscle tenderness Skin-no bruising, no rashes, no pruritus Neuro-no isolated weakness, no paresthesia, no weakness Psych-no depression, no anxiety Physical Exam Physical Exam: General-alert and oriented x3, no fevers, no chills HEENT-head atraumatic and normocephalic, pupils equal and reactive to light, extraocular muscles intact Neck-no lymphadenopathy or thyromegaly, trachea midline Chest-clear to auscultation percussion. No rales wheezing or rhonchi Cardiac-regular rate and rhythm, normal S1 and S2 Abdomen-normal bowel sounds, nontender, no hepatosplenomegaly Extremities-no cyanosis, clubbing, or edema Neuro-cranial nerves II through XII intact, motor and sensory function within normal limits, strength symmetrical , no focal deficits Psych-normal affect, normal mood Results & Data Results & Data ([facility]) Vital Signs (Past 12 Hours) Vital Signs Temp Pulse Resp BP Pulse Ox O2 Del Method O2 Flow Rate 04/21/22 14:53 36.8 C 16 137/68 97 Nasal Cannula 2 04/21/22 08:00 Nasal Cannula 2 04/21/22 07:23 36.6 C 63 16 122/71 95 Nasal Cannula 2 Laboratory Results 04/21/22 08:03 04/21/22 08:03 PG Care Time/CCT Total # of Minutes Spent Total Time Spent with Patient: Total time spent is greater than 50% in coordination of care (as documented) at patient's floor/unit and/or counseling patient: Coding Level of Care Code 84590 Subseq Hosp Care Lvl 3 Diagnoses Infection due to ESBL-producing Escherichia coli A49.8; Z16.12 ARF (acute renal failure) N17.9 COPD (chronic obstructive pulmonary disease) J44.9 HFrEF (heart failure with reduced ejection fraction) I50.20 Diabetes E11.9 Depression F32.9 Pacemaker Z95.0
[2022-04-21] MEDS: LORazepam 0.5 MG TAB PO PRN (22:44)
[2022-04-22] MEDS: LANTUS PER UNIT CHARGE SQ SCH ×2 (09:20→20:52)
[2022-04-22] MEDS: FLUTICASONE FUROATE 200MCG 14 PUFFS/INHALER INH SCH (09:21)
[2022-04-22] MEDS: ERTAPENEM SODIUM 1,000 MG in SYRINGE 0 ML IV SCH (09:21)
[2022-04-22] MEDS: VENLAFAXINE HCL XR 75 MG CAPXR PO SCH (09:22)
[2022-04-22] MEDS: POTASSIUM CHLORIDE 10 MEQ TABCR PO SCH (09:23)
[2022-04-22] MEDS: lisinopril 20 MG TAB PO SCH (09:23)
[2022-04-22] MEDS: UMECLIDINIUM/VILANTEROL 62.5/25MCG 7 PUFFS/INHALER INH SCH (09:23)
[2022-04-22] MEDS: MUPIROCIN 2% OINT 22 GM TUBE EXT SCH ×3 (09:29→19:16)
--- NOTE | 2022-04-22 15:03 | Hospitalist Progress Note ---
Date of Service April 22, 2022 Assessment & Plan (1) Infection due to ESBL-producing Escherichia coli: Plan: Ertapenem day 3 of 3, for uncomplicated UTI (2) ARF (acute renal failure): Plan: Present on admission. Now resolved with fluid rehydration. Monitor intake and output. Serial labs (3) COPD (chronic obstructive pulmonary disease): Plan: Diagnosis on admission was acute on chronic respiratory failure with possible pneumonia . The patient has no respiratory symptoms. COPD stablehome oxygen dependent 2 L. Stopped vancomycin. 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 Her ABGs on admission showed metabolic alkalosis and chronic respiratory acidosis. Possible overdiuresis at the shelter facility. She has contraction metabolic alkalosis and compensated respiratory acidosis producing elevated bicarb levels. (4) HFrEF (heart failure with reduced ejection fraction): Plan: Newly diagnosed EF 45%was normal at last echo. Also grade 1 diastolic dysfunction. Started SHERRI inhibitor this admission. Amlodipine has been di scontinued. (5) Diabetes: Plan: Controlled. ADA diet. Patient is on on oral and injectable medications for diabetes. She is typically is on Lantus 26 twice daily at homereduced here to 15 units twice daily . Glucose 154 today, April 22. Hemoglobin A1c 6% (6) Depression: Plan: Stable on venlafaxine (7) Pacemaker: Plan: EKG confirms paced rhythm Plan Eventual discharge to SNF. She previously was at [facility] but family is requesting admission to [facility] which is pending. Admission and Anticipated Discharge Date Admission Date: April 17, 2022 Subjective Alert and oriented. No acute problems. She remains on ertapenem, day 3. We will recheck lab tests in the morning for potassium level. Review of Systems Review of Systems: Constitutional-no fever or chills ENT-no blurred vision, no double vision, no epistaxis, no sore throat Respiratory-no cough, no wheezing, no shortness of breath Cardiac-no palpitations, no chest pain, no syncope GI-no nausea, vomiting, diarrhea, melena, hematochezia -no urinary retention, no urinary incontinence, no dysuria, no hematuria Musculoskeletal-no joint pain, no muscle tenderness Skin-no bruising, no rashes, no pruritus Neuro-no isolated weakness, no paresthesia, no weakness Psych-no depression, no anxiety Physical Exam Physical Exam: General-alert and oriented x3, no fevers, no chills HEENT-head atraumatic and normocephalic, pupils equal and reactive to light, extraocular muscles intact Neck-no lymphadenopathy or thyromegaly, trachea midline Chest-clear to auscultation percussion. No rales wheezing or rhonchi Cardiac-regular rate and rhythm, normal S1 and S2 Abdomen-normal bowel sounds, nontender, no hepatosplenomegaly Extremities-no cyanosis, clubbing, or edema Neuro-cranial nerves II through XII intact, motor and sensory function within normal limits, strength symmetrical , no focal deficits Psych-normal affect, normal mood Results & Data Results & Data ([facility]) Vital Signs (Past 12 Hours) Vital Signs Temp Pulse Resp BP Pulse Ox O2 Del Method O2 Flow Rate 04/22/22 09:30 Nasal Cannula 2 04/22/22 07:14 36.7 C 65 18 167/73 H 93 Nasal Cannula 2 Laboratory Results 04/21/22 08:03 04/21/22 08:03 PG Care Time/CCT Total # of Minutes Spent Total Time Spent with Patient: Total time spent is greater than 50% in coordination of care (as documented) at patient's floor/unit and/or counseling patient: Coding Level of Care Code 84823 Subseq Hosp Care Lvl 2 Diagnoses Infection due to ESBL-producing Escherichia coli A49.8; Z16.12 ARF (acute renal failure) N17.9 COPD (chronic obstructive pulmonary disease) J44.9 HFrEF (heart failure with reduced ejection fraction) I50.20 Diabetes E11.9 Depression F32.9 Pacemaker Z95.0
[2022-04-22] MEDS: ENOXAPARIN INJ 40 MG/0.4 ML SYR SQ SCH (15:57)
[2022-04-22] MEDS: LORazepam 0.5 MG TAB PO PRN (23:05)
[2022-04-23] MEDS: POTASSIUM CHLORIDE 10 MEQ TABCR PO SCH (09:27)
[2022-04-23] MEDS: VENLAFAXINE HCL XR 75 MG CAPXR PO SCH (09:28)
[2022-04-23] MEDS: lisinopril 20 MG TAB PO SCH (09:28)
[2022-04-23] MEDS: UMECLIDINIUM/VILANTEROL 62.5/25MCG 7 PUFFS/INHALER INH SCH (09:29)
[2022-04-23] MEDS: FLUTICASONE FUROATE 200MCG 14 PUFFS/INHALER INH SCH (09:32)
[2022-04-23] MEDS: LANTUS PER UNIT CHARGE SQ SCH ×2 (09:38→20:55)
[2022-04-23 10:47] LABS: BUN Creatinine Ratio 26.7 (10-20); Calcium 8.7 mg/dl (8.5-10.1); Creatinine Clr Calc Pharmacy 76.7 ml/min; Est GFR (African American) 71.5 ml/min; Est GFR (Non-African American) 61.7 ml/min; Potassium 3.8 mmol/L (3.5-5.1)
[2022-04-23] MEDS: ERTAPENEM SODIUM 1,000 MG in SYRINGE 0 ML IV SCH (10:48)
[2022-04-23] MEDS: MUPIROCIN 2% OINT 22 GM TUBE EXT SCH ×3 (11:42→16:21)
[2022-04-23] MEDS: ENOXAPARIN INJ 40 MG/0.4 ML SYR SQ SCH (13:29)
--- NOTE | 2022-04-23 14:21 | Hospitalist Progress Note ---
Date of Service April 23, 2022 Assessment & Plan (1) Infection due to ESBL-producing Escherichia coli: Plan: Ertapenem course completed and has been discontinued. It was given for uncomplicated UTI (2) ARF (acute renal failure): Plan: Present on admission. Now resolved with fluid rehydration. Monitor intake and output. Serial labs (3) COPD (chronic obstructive pulmonary disease): Plan: Diagnosis on admission was acute on chronic respiratory failure with possible pneumonia . The patient has no respiratory symptoms. COPD stablehome oxygen dependent 2 L. Stopped vancomycin. 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 Her ABGs on admission showed metabolic alkalosis and chronic respiratory acidosis. Possible overdiuresis at the alf facility. She has contraction metabolic alkalosis and compensated respiratory acidosis producing elevated bicarb levels. (4) HFrEF (heart failure with reduced ejection fraction): Plan: Newly diagnosed EF 45%was normal at last echo. Also grade 1 diastolic dysfunction. Started SHERRI inhibitor this admission. Amlodipine has been discontinued. (5) Diabetes: Plan: Controlled. ADA diet. Patient is on on oral and injectable medications for diabetes. She is typically is on Lantus 26 twice daily at homereduced here to 15 units twice daily . Hemoglobin A1c 6% (6) Depression: Plan: Stable on venlafaxine (7) Pacemaker: Plan: EKG confirms paced rhythm Plan Eventual discharge to SNF. She previously was at [facility] but family is requesting admission to [facility] which is pending. Admission and Anticipated Discharge Date Admission Date: April 17, 2022 Subjective Alert and oriented. No acute distress. She has completed her course of ertapenem which has been discontinued. Mild hypokalemia has been corrected. No new problems Review of Systems Review of Systems: Constitutional-no fever or chills ENT-no blurred vision, no double vision, no epistaxis, no sore throat Respiratory-no cough, no wheezing, no shortness of breath Cardiac-no palpitations, no chest pain, no syncope GI-no nausea, vomiting, diarrhea, melena, hematochezia -no urinary retention, no urinary incontinence, no dysuria, no hematuria Musculoskeletal-no joint pain, no muscle tenderness Skin-no bruising, no rashes, no pruritus Neuro-no isolated weakness, no paresthesia, no weakness Psych-no depression, no anxiety Physical Exam Physical Exam: General-alert and oriented x3, no fevers, no chills. Morbidly obese HEENT-head atraumatic and normocephalic, pupils equal and reactive to light, extraocular muscles intact Neck-no lymphadenopathy or thyromegaly, trachea midline Chest-clear to auscultation percussion. No rales wheezing or rhonchi Cardiac-regular rate and rhythm, normal S1 and S2 Abdomen-normal bowel sounds, nontender, no hepatosplenomegaly Extremities-no cyanosis, clubbing, or edema Neuro-cranial nerves II through XII intact, motor and sensory function within normal limits, strength symmetrical , no focal deficits Psych-normal affect, normal mood Results & Data Results & Data ([facility]) Vital Signs (Past 12 Hours) Vital Signs Temp Pulse Resp BP Pulse Ox O2 Del Method O2 Flow Rate 04/23/22 09:20 Nasal Cannula 2 04/23/22 09:25 71 138/68 04/23/22 07:49 36.8 C 63 18 121/53 L 93 Nasal Cannula 2 04/23/22 05:03 Nasal Cannula 2 PG Care Time/CCT Total # of Minutes Spent Total Time Spent with Patient: Total time spent is greater than 50% in coordination of care (as documented) at patient's floor/unit and/or counseling patient: Coding Level of Care Code 98440 Subseq Hosp Care Lvl 2 Diagnoses Infection due to ESBL-producing Escherichia coli A49.8; Z16.12 ARF (acute renal failure) N17.9 COPD (chronic obstructive pulmonary disease) J44.9 HFrEF (heart failure with reduced ejection fraction) I50.20 Diabetes E11.9 Depression F32.9 Pacemaker Z95.0
[2022-04-23] MEDS: LORazepam 0.5 MG TAB PO PRN (20:55)
[2022-04-24] MEDS: FLUTICASONE FUROATE 200MCG 14 PUFFS/INHALER INH SCH (08:15)
[2022-04-24] MEDS: POTASSIUM CHLORIDE 10 MEQ TABCR PO SCH (08:15)
[2022-04-24] MEDS: LANTUS PER UNIT CHARGE SQ SCH ×2 (08:15→20:49)
[2022-04-24] MEDS: UMECLIDINIUM/VILANTEROL 62.5/25MCG 7 PUFFS/INHALER INH SCH (08:15)
[2022-04-24] MEDS: MUPIROCIN 2% OINT 22 GM TUBE EXT SCH ×3 (08:16→16:13)
[2022-04-24] MEDS: lisinopril 20 MG TAB PO SCH (08:18)
[2022-04-24] MEDS: VENLAFAXINE HCL XR 75 MG CAPXR PO SCH (08:19)
[2022-04-24 09:20] LABS: BUN Creatinine Ratio 29.2 (10-20); Calcium 8.7 mg/dl (8.5-10.1); Creatinine Clr Calc Pharmacy 77.6 ml/min; Est GFR (African American) 72.5 ml/min; Est GFR (Non-African American) 62.5 ml/min; Potassium 3.9 mmol/L (3.5-5.1)
[2022-04-24] MEDS: ENOXAPARIN INJ 40 MG/0.4 ML SYR SQ SCH (13:27)
--- NOTE | 2022-04-24 17:43 | Hospitalist Progress Note ---
Date of Service April 24, 2022 Assessment & Plan (1) Infection due to ESBL-producing Escherichia coli: Plan: Ertapenem course completed and has been discontinued. It was given for uncomplicated UTI (2) ARF (acute renal failure): Plan: Present on admission. Now resolved with fluid rehydration. Monitor intake and output. Serial labs (3) COPD (chronic obstructive pulmonary disease): Plan: Diagnosis on admission was acute on chronic respiratory failure with possible pneumonia . The patient has no respiratory symptoms. COPD stablehome oxygen dependent 2 L. Stopped vancomycin. 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 Her ABGs on admission showed metabolic alkalosis and chronic respiratory acidosis. Possible overdiuresis at the [facility] facility. She has contraction metabolic alkalosis and compensated respiratory acidosis producing elevated bicarb levels. (4) HFrEF (heart failure with reduced ejection fraction): Plan: Newly diagnosed EF 45%was normal at last echo. Also grade 1 diastolic dysfunction.Now euvolemic. Started SHERRI inhibitor this admission. Amlodipine has been discontinued. (5) Diabetes: Plan: Controlled. ADA diet. Patient is on on oral and injectable medications for diabetes. She is typically is on Lantus 26 twice daily at homereduced here to 15 units twice daily . Hemoglobin A1c 6% 149, 112, 137 (6) Depression: Plan: Stable on venlafaxine (7) Pacemaker: Plan: EKG confirms paced rhythm Plan ready for discharge to SNF. She previously was at [facility] but [facility] is [facility] which [facility]. Jennifer to be taken out today Admission and Anticipated Discharge Date Admission Date: April 17, 2022 Subjective at 9 am, feels weary No chest pain Insufficient BM- asks for medication has had dizziness- does not wish to try meclizine, dizziness is on turning head and for many years, no cough/n/v Physical Exam Physical Exam: Severely obese lady sitting up in bed, oriented to person and place 94% 2 L nasal cannula Head and neck moist tongue Chest clear to auscultation CVS S1-S2 heard Obese large pannus , Rodriguez catheter in place Extremities stasis dermatitis changes with indurated skin lower legs with erythema bilateral equal area STRE[employer] grossly intact Results & Data Results & Data ([facility]) Vital Signs (Past 12 Hours) Vital Signs Temp Pulse Resp BP Pulse Ox O2 Del Method O2 Flow Rate 04/24/22 14:56 36.9 C 67 16 121/74 93 Nasal Cannula 2 04/24/22 10:23 Nasal Cannula 2 04/24/22 08:07 36.7 C 64 16 122/66 93 Nasal Cannula 2 Laboratory Results 04/24/22 04/24/22 04/24/22 12:09 08:25 07:48 Sodium 140 Potassium 3.9 Chloride 96 L Carbon Dioxide 40 H Anion Gap 4 BUN 26 H Creatinine 0.89 Est Cr Clr Drug Dosing 77.6 Est GFR ( Amer) 72.5 Est GFR (Non-Af Amer) 62.5 BUN/Creatinine Ratio 29.2 H Glucose 112 H POC Glucose 149 H 112 H Calcium 8.7 04/23/22 20:49 Sodium Potassium Chloride Carbon Dioxide Anion Gap BUN Creatinine Est Cr Clr Drug Dosing Est GFR ( Amer) Est GFR (Non-Af Amer) BUN/Creatinine Ratio Glucose POC Glucose 137 H Calcium Medications Administered Home Medications Medication Instructions Recorded Confirmed Last Taken lancets 30 gauge (OneTouch Delica #25 ea 11/24/18 04/07/21 Unknown Lancets) miconazole nitrate 2 % topical 1 applic topical BID PRN Skin 10/07/20 04/20/22 Unknown powder (Desenex) Irritation triamcinolone acetonide 0.1 % 1 appln topical BID PRN Skin 10/07/20 04/20/22 02/23/21 topical ointment Irritation cetirizine 10 mg tablet (Zyrtec) 5 mg PO QAM PRN itching 02/24/21 04/20/22 02/23/21 hydrochlorothiazide 25 mg tablet 25 mg PO QAM 02/24/21 04/20/22 03/23/21 dulaglutide 1.5 mg/0.5 mL See Rx Instructions .Route 04/06/21 04/20/22 Unknown subcutaneous pen injector .COMPLEX #2 mL (Trulicity) fluticasone fur. 200 mcg-umeclid 1 inh inhalation QAM #60 ea 04/06/21 04/20/22 Unknown 62.5 mcg-vilant 25 mcg inhalat.powder (Trelegy Ellipta) ipratropium bromide 17 1 puff inhalation TID PRN 04/06/21 04/20/22 Unknown mcg/actuation HFA aerosol inhaler Shortness Of Breath #12.9 grams (Atrovent HFA) turmeric 400 mg capsule 400 mg PO DAILY #30 caps 04/06/21 04/20/22 Unknown venlafaxine 75 mg capsule,extended 225 mg PO QAM #90 caps 04/06/21 04/20/22 Unknown release 24 hr insulin glargine 100 unit/mL (3 26 unit (0.26 mL) subcut BID #15 mL 05/06/21 04/20/22 Unknown mL) subcutaneous pen (Lantus Solostar U-100 Insulin) lorazepam 0.5 mg tablet 0.5 mg PO BID #60 tabs 05/25/21 04/20/22 Unknown pen needle, diabetic 31 gauge x #100 ea 06/11/21 Unknown 09/14" (Comfort EZ Pen [place]) oxybutynin chloride 10 mg 10 mg PO HS #90 tabs 07/13/21 04/20/22 Unknown tablet,extended release 24 hr atorvastatin 10 mg tablet 10 mg PO 3XWK #36 tabs 09/29/21 04/20/22 Unknown omeprazole 20 mg capsule,delayed 20 mg PO QAM #90 caps 10/21/21 04/20/22 Unknown release Active Medications Generic Name Dose Route Start Last Admin Trade Name Freq PRN Reason Stop Dose Admin Enoxaparin Sodium 40 mg 04/17/22 13:30 04/24/22 13:27 Enoxaparin Inj 40 Mg/0.4 Ml Syr SQ 05/17/22 13:29 40 mg Q24H TERI Administration Fluticasone Furoate 1 puffs 04/19/22 15:45 04/24/22 08:15 Fluticasone Furoate 200mcg 14 Puffs/Inhaler INH 05/19/22 15:44 1 puffs DAILY TERI Administration Insulin Glargine 15 units 04/17/22 21:00 04/24/22 08:15 Lantus Per Unit Charge SQ 05/17/22 20:59 15 units BID TERI Administration Lisinopril 20 mg 04/21/22 09:00 04/24/22 08:18 Lisinopril 20 Mg Tab PO 05/21/22 08:59 20 mg QAM TERI Administration Lorazepam 0.5 mg 04/17/22 13:14 12/23/22 20:55 Lorazepam 0.5 Mg Tab PO 05/17/22 13:13 0.5 mg Q8H PRN Administration Anxiety Mupirocin 1 appln 04/20/22 08:00 04/24/22 16:13 Mupirocin 2% Oint 22 Gm Tube EXT 05/20/22 07:59 1 appln [id number] TERI Administration Potassium Chloride 10 meq 04/21/22 09:45 04/24/22 08:15 Potassium Chloride 10 Meq Tabcr PO 05/21/22 09:44 10 meq DAILY TERI Administration Umeclidinium/Vilanterol 1 puffs 04/18/22 15:45 04/24/22 08:15 Umeclidinium/Vilanterol 62.5/25mcg 7 Puffs/Inhaler INH 05/18/22 15:44 1 puffs DAILY TERI Administration Venlafaxine HCl 225 mg 04/18/22 09:00 04/24/22 08:19 Venlafaxine Hcl Xr 75 Mg Capxr PO 05/18/22 08:59 225 mg QAM TERI Administration PG Care Time/CCT Total # of Minutes Spent Total Time Spent with Patient: Total time spent is greater than 50% in coordination of care (as documented) at patient's floor/unit and/or counseling patient: Coding Level of Care Code 91138 Subseq Hosp Care Lvl 2 Diagnoses Infection due to ESBL-producing Escherichia coli A49.8; Z16.12 ARF (acute renal failure) N17.9 COPD (chronic obstructive pulmonary disease) J44.9 HFrEF (heart failure with reduced ejection fraction) I50.20 Diabetes E11.9 Depression F32.9 Pacemaker Z95.0
[2022-04-24] MEDS: DOCUSATE SODIUM 100 MG CAP PO SCH (20:49)
[2022-04-24] MEDS: LORazepam 0.5 MG TAB PO PRN (22:11)
[2022-04-25 08:08] LABS: BUN Creatinine Ratio 32.9 (10-20); Calcium 8.4 mg/dl (8.5-10.1); Creatinine Clr Calc Pharmacy 90.8 ml/min; Est GFR (African American) 87.7 ml/min; Est GFR (Non-African American) 75.7 ml/min; Potassium 3.7 mmol/L (3.5-5.1)
[2022-04-25] MEDS: lisinopril 20 MG TAB PO SCH (08:36)
[2022-04-25] MEDS: DOCUSATE SODIUM 100 MG CAP PO SCH ×2 (08:37→19:57)
[2022-04-25] MEDS: POTASSIUM CHLORIDE 10 MEQ TABCR PO SCH (08:37)
[2022-04-25] MEDS: MUPIROCIN 2% OINT 22 GM TUBE EXT SCH ×3 (08:38→17:22)
[2022-04-25] MEDS: VENLAFAXINE HCL XR 75 MG CAPXR PO SCH (08:38)
[2022-04-25] MEDS: FLUTICASONE FUROATE 200MCG 14 PUFFS/INHALER INH SCH (08:38)
[2022-04-25] MEDS: UMECLIDINIUM/VILANTEROL 62.5/25MCG 7 PUFFS/INHALER INH SCH (08:38)
[2022-04-25] MEDS: LANTUS PER UNIT CHARGE SQ SCH ×2 (08:40→22:15)
[2022-04-25] MEDS: ENOXAPARIN INJ 40 MG/0.4 ML SYR SQ SCH (12:51)
[2022-04-25] MEDS ORDERED: EUCERIN CR 120 GM JAR EXT PRN (14:28)
--- NOTE | 2022-04-25 18:10 | Hospitalist Progress Note ---
Date of Service April 25, 2022 Assessment & Plan (1) Infection due to ESBL-producing Escherichia coli: Plan: Ertapenem course completed and has been discontinued. It was given for uncomplicated UTI (2) ARF (acute renal failure): Plan: Present on admission. Now resolved with fluid rehydration. Metabolic contraction alkalosis was significant and serum bicarb is down to 38 today (3) COPD (chronic obstructive pulmonary disease): Plan: Diagnosis on admission was acute on chronic respiratory failure with possible pneumonia . The patient has no respiratory symptoms. COPD stablehome oxygen dependent 2 L. Stopped vancomycin. MRSA nares positivetreated carrier state with mupirocin ointment [id number] week long course. her ABGs on admission showed metabolic alkalosis and chronic respiratory acidosis. Possible overdiuresis at the senior care facility. She has contraction metabolic alkalosis and compensated respiratory acidosis producing elevated bicarb levels. (4) HFrEF (heart failure with reduced ejection fraction): Plan: Newly diagnosed EF 45%was normal at last echo. Also grade 1 diastolic dysfunction.Now euvolemic. Started SHERRI inhibitor this admission. Amlodipine has been discontinued. (5) Diabetes: Plan: Controlled. ADA diet. Patient is on on oral and injectable medications for diabetes. She is typically is on Lantus 26 twice daily at homereduced here to 15 units twice daily . Hemoglobin A1c 6% 149, 112, 137 (6) Depression: Plan: Stable on venlafaxine (7) Pacemaker: Plan: EKG confirms paced rhythm Off telemetry. Plan Very dry skin of the armsEucerin cream prescribed today for 3 times daily use ready for discharge to SNF. She previously was at [facility] but [facility] which [facility]. Admission and Anticipated Discharge Date Admission Date: April 17, 2022 Subjective at 1135 h Dizzy when she is moved in bed and this is ongoing for several years. Has never tried meclizine and is hesitant to try new medication for these mild symptoms which she described as spinning earlier few days ago and Has a pure wick catheter in place as longstanding urine incontinence. Denies abdominal pain/fever chills Denies itching though significant dryness of skin arms Physical Exam Physical Exam: Patient was lying at 60 degrees in her bed and asleep, easily arousable, lucid historian, appeared tired 94% 2 L nasal cannula Head and neck moist tongue Nystagmus with fast phase to the right on right gaze Chest clear to auscultation CVS S1-S2 heard Obese large pannus , Rodriguez catheter in place Extremities stasis dermatitis changes with indurated skin lower legs with erythema bilateral equal area S[employer] grossly intact Skin flaky dry skin of the arms especially forearms Results & Data Results & Data ([facility]) Vital Signs (Past 12 Hours) Vital Signs Temp Pulse Resp BP Pulse Ox O2 Del Method O2 Flow Rate 04/25/22 14:27 37 C 73 16 157/68 H 93 Nasal Cannula 2 04/25/22 07:35 Nasal Cannula 2 04/25/22 08:42 36.9 C 70 16 154/70 H 94 Nasal Cannula 2 04/25/22 07:05 37.2 C 67 16 160/61 H 90 Nasal Cannula 2 Laboratory Results Abnormal lab results 04/24/22 04/25/22 04/25/22 Range/Units 20:28 07:02 07:47 Carbon Dioxide 38 H (21-32) mmol/L BUN 25 H (6-23) mg/dl BUN/Creatinine Ratio 32.9 H (10-20) Glucose 131 H (70-99(Fasting)) mg/dl POC Glucose 160 H 136 H (70-99) mg/dl Calcium 8.4 L (8.5-10.1) mg/dl 04/25/22 04/25/22 Range/Units 12:08 17:01 Carbon Dioxide (21-32) mmol/L BUN (6-23) mg/dl BUN/Creatinine Ratio (10-20) Glucose (70-99(Fasting)) mg/dl POC Glucose 188 H 195 H (70-99) mg/dl Calcium (8.5-10.1) mg/dl Medications Administered Home Medications Medication Instructions Recorded Confirmed Last Taken lancets 30 gauge (OneTouch Delica #25 ea 11/24/18 04/07/21 Unknown Lancets) miconazole nitrate 2 % topical 1 applic topical BID PRN Skin 10/07/20 04/20/22 Unknown powder (Desenex) Irritation triamcinolone acetonide 0.1 % 1 appln topical BID PRN Skin 10/07/20 04/20/22 02/23/21 topical ointment Irritation cetirizine 10 mg tablet (Zyrtec) 5 mg PO QAM PRN itching 02/24/21 04/20/22 02/23/21 hydrochlorothiazide 25 mg tablet 25 mg PO QAM 02/24/21 04/20/22 03/23/21 dulaglutide 1.5 mg/0.5 mL See Rx Instructions .Route 04/06/21 04/20/22 Unknown subcutaneous pen injector .COMPLEX #2 mL (Trulicity) fluticasone fur. 200 mcg-umeclid 1 inh inhalation QAM #60 ea 04/06/21 04/20/22 Unknown 62.5 mcg-vilant 25 mcg inhalat.powder (Trelegy Ellipta) ipratropium bromide 17 1 puff inhalation TID PRN 04/06/21 04/20/22 Unknown mcg/actuation HFA aerosol inhaler Shortness Of Breath #12.9 grams (Atrovent HFA) turmeric 400 mg capsule 400 mg PO DAILY #30 caps 04/06/21 04/20/22 Unknown venlafaxine 75 mg capsule,extended 225 mg PO QAM #90 caps 04/06/21 04/20/22 Unknown release 24 hr insulin glargine 100 unit/mL (3 26 unit (0.26 mL) subcut BID #15 mL 05/06/21 04/20/22 Unknown mL) subcutaneous pen (Lantus Solostar U-100 Insulin) lorazepam 0.5 mg tablet 0.5 mg PO BID #60 tabs 05/25/21 04/20/22 Unknown pen needle, diabetic 31 gauge x #100 ea 06/11/21 Unknown 5/16" (Comfort EZ Pen [place]) oxybutynin chloride 10 mg 10 mg PO HS #90 tabs 07/13/21 04/20/22 Unknown tablet,extended release 24 hr atorvastatin 10 mg tablet 10 mg PO 3XWK #36 tabs 09/29/21 04/20/22 Unknown omeprazole 20 mg capsule,delayed 20 mg PO QAM #90 caps 10/21/21 04/20/22 Unknown release Active Medications Generic Name Dose Route Start Last Admin Trade Name Freq PRN Reason Stop Dose Admin Docusate Sodium 100 mg 04/24/22 21:00 04/25/22 08:37 Docusate Sodium 100 Mg Cap PO 05/24/22 20:59 100 mg BID TERI Administration Enoxaparin Sodium 40 mg 04/17/22 13:30 04/25/22 12:51 Enoxaparin Inj 40 Mg/0.4 Ml Syr SQ 05/17/22 13:29 40 mg Q24H TERI Administration Fluticasone Furoate 1 puffs 04/19/22 15:45 04/25/22 08:38 Fluticasone Furoate 200mcg 14 Puffs/Inhaler INH 05/19/22 15:44 1 puffs DAILY TERI Administration Insulin Glargine 15 units 04/17/22 21:00 04/25/22 08:40 Lantus Per Unit Charge SQ 05/17/22 20:59 15 units BID TERI Administration Lisinopril 20 mg 04/21/22 09:00 04/25/22 08:36 Lisinopril 20 Mg Tab PO 05/21/22 08:59 20 mg QAM TERI Administration Lorazepam 0.5 mg 04/17/22 13:14 04/24/22 22:11 Lorazepam 0.5 Mg Tab PO 05/17/22 13:13 0.5 mg Q8H PRN Administration Anxiety Potassium Chloride 10 meq 04/21/22 09:45 04/25/22 08:37 Potassium Chloride 10 Meq Tabcr PO 05/21/22 09:44 10 meq DAILY TERI Administration Umeclidinium/Vilanterol 1 puffs 04/18/22 15:45 04/25/22 08:38 Umeclidinium/Vilanterol 62.5/25mcg 7 Puffs/Inhaler INH 05/18/22 15:44 1 puffs DAILY TERI Administration Venlafaxine HCl 225 mg 04/18/22 09:00 04/25/22 08:38 Venlafaxine Hcl Xr 75 Mg Capxr PO 05/18/22 08:59 225 mg QAM TERI Administration PG Care Time/CCT Total # of Minutes Spent Total Time Spent with Patient: Total time spent is greater than 50% in coordination of care (as documented) at patient's floor/unit and/or counseling patient: Coding Level of Care Code 55488 Subseq Hosp Care Lvl 2 Diagnoses Infection due to ESBL-producing Escherichia coli A49.8; Z16.12 ARF (acute renal failure) N17.9 COPD (chronic obstructive pulmonary disease) J44.9 HFrEF (heart failure with reduced ejection fraction) I50.20 Diabetes E11.9 Depression F32.9 Pacemaker Z95.0
[2022-04-26] MEDS: VENLAFAXINE HCL XR 75 MG CAPXR PO SCH (08:39)
[2022-04-26] MEDS: DOCUSATE SODIUM 100 MG CAP PO SCH (08:39)
[2022-04-26] MEDS: POTASSIUM CHLORIDE 10 MEQ TABCR PO SCH (08:39)
[2022-04-26] MEDS: lisinopril 20 MG TAB PO SCH (08:39)
[2022-04-26] MEDS: FLUTICASONE FUROATE 200MCG 14 PUFFS/INHALER INH SCH (08:39)
[2022-04-26] MEDS: LANTUS PER UNIT CHARGE SQ SCH (09:25)
[2022-04-26] MEDS: UMECLIDINIUM/VILANTEROL 62.5/25MCG 7 PUFFS/INHALER INH SCH (09:44)
[2022-04-26] MEDS: ENOXAPARIN INJ 40 MG/0.4 ML SYR SQ SCH (13:39)
--- NOTE | 2022-04-26 15:04 | Discharge Summary ---
Date of Service April 26, 2022 Admission HPI Per Admitting Provider 77-year-old female resident of [facility] who is a history of COPD presents in acute respiratory failure found obtunded at [facility] brought in with concern for pneumonia, acute diastolic heart failure, hypercarbic respiratory failure. Placed on BiPAP. Chest x-ray shows significant infiltrates possibly gram- negative or aspiration pneumonia patient cannot provide any history. ER physician, spoke to the patient's son Lamont who confirms patient is a DNR, family also feels that they are comfortable treating with antibiotics and BiPAP support but nothing more aggressive She has mild elevation of her troponin mildly hypokalemic. EKG does not show acute current of injury. After period of BiPAP with the patient was able to open her eyes and speak although not make complete sense or follow commands Principal Diagnosis Encephalopathy from E. 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 It was given for uncomplicated UTI (2) ARF (acute renal failure): Present on admission. Now resolved with fluid rehydration. Metabolic contraction alkalosis was significant and serum bicarb is down to 38 12/25 from 45 on admission and excessive diuresis was a diagnosis (3) COPD (chronic obstructive pulmonary disease): Diagnosis on admission was acute on chronic respiratory failure with possible pneumonia . The patient has no respiratory symptoms. COPD stablehome oxygen dependent 2 L. Stopped vancomycin. 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 her ABGs on admission showed metabolic alkalosis and chronic respiratory acidosis. Possible overdiuresis at the care home facility. She has contraction metabolic alkalosis and compensated respiratory acidosis producing elevated bicarb levels. (4) HFrEF (heart failure with reduced ejection fraction): Newly diagnosed EF 45%was normal at last echo. Also grade 1 diastolic dysfunction.Now euvolemic. Started SHERRI inhibitor this admission. Amlodipine has been discontinued. (5) Diabetes: Controlled. ADA diet. Patient is on on oral and injectable medications for diabetes. She is typically is on Lantus 26 twice daily at homereduced here to 15 units twice daily . Hemoglobin A1c 6% 149, 112, 137 (6) Depression: Stable on venlafaxine (7) Pacemaker: EKG confirmed paced rhythm Off telemetry most days postadmission. (8) Dry skin dermatitis: Very dry skin of the armsEucerin cream prescribed 04/25-must continue in SNF Gentle soap such as Dove should be used and avoid hot baths/showers. Triamcinolone cream, cetirizine and Vaseline prescribed earlier have been discontinued Plan ready for discharge to SNF. She previously was at [facility] but family is requesting admission to [place] care which is pending. Total Time Total Time Spent Total Time Spent (In Minutes): 35 Discharge Plan Discharge Items Patient Disposition: Transfer Inpatient Rehab Fac Reason For Visit: ACUTE RESP FAILURE,CAP,ELEV TROP,AC DIASTOLIC HF Discharge Diagnosis: UTI with encephalopathy, contraction metabolic alkalosis Condition on Discharge: Serious Activity: As commented below Activity Comment: per PT Non-emergency contact: Primary Care Provider Call non-emergency contact if: you have any medication questions Follow-up/Referrals: Shady Edwards at [facility] [Primary Care Provider] - Diet: Carb Consistent or DM2 and Heart Healthy Addtl Attending Provider Instructions: USE MILD SOAPS LIKE DOVE Use EUCERIN CREAM AFTER SHOWER DAILY ALL OVER FOR DRY SKIN Pending Studies at Discharge: No Stand-Alone Forms: My [facility] Skilled Items Patient informed of condition?: Yes Discharge Level of Care: Skilled Communicable Disease: No Discharge Prognosis: Stable Lines: None Urinary Catheter: No (Urinary incontinence is chronic, so has been on a pure wick system here) Medications and DC Order Prescriptions: New insulin glargine [Lantus U-100 Insulin] 100 unit/mL Solution 15 unit subcut BID Qty: 10 0RF lisinopril 20 mg Tablet 20 mg PO QAM Qty: 7 0RF miconazole nitrate [Desenex] 2 % Powder 1 applic topical BID PRN (Reason: GROIN RASH) Qty: 85 0RF docusate sodium 100 mg Capsule 100 mg PO BID Qty: 20 0RF enoxaparin [Lovenox] 40 mg/0.4 mL Syringe 40 mg subcut Q24H Qty: 4 0RF potassium chloride 10 mEq Tablet,Er Particles/Crystals 10 meq PO DAILY Qty: 10 0RF Anoro Ellipta 62.5-25 mcg/actuation Blister With Device 1 ea inhalation DAILY Qty: 14 0RF Arnuity Ellipta 200 mcg/actuation Blister With Device 1 inh inhalation DAILY Qty: 14 0RF Continued Trelegy Ellipta 200-62.5-25 mcg blister with device 1 inh inhalation QAM Qty: 60 11RF Atrovent HFA 17 mcg/actuation HFA aerosol inhaler 1 puff INH TID PRN (Reason: Shortness Of Breath) Qty: 12.9 11RF venlafaxine 75 mg capsule,extended release 24hr 225 mg PO QAM Qty: 90 11RF Rx Instructions: TAKE 3 CAPSULES BY MOUTH ONCE DAILY (DME) pen needle, diabetic [Comfort EZ Pen [place]] 31 gauge x 5/16" needle See Rx Instructions .Route Qty: 100 5RF Rx Instructions: 3 TIMES DAILY oxybutynin chloride 10 mg tablet extended release 24hr 10 mg PO HS Qty: 90 3RF atorvastatin 10 mg tablet 10 mg PO 3XWK Qty: 36 3RF Rx Instructions: Mon/Weds/Fri omeprazole 20 mg capsule,delayed release(DR/EC) 20 mg PO QAM Qty: 90 3RF lorazepam 0.5 mg tablet 0.5 mg PO BID Qty: 60 5RF Rx Instructions: as needed for anxiety (DME) lancets [OneTouch Delica Lancets] 30 gauge misc See Dose Instructions .ROUTE .MEDSUPPLY Qty: 25 Rx Instructions: As directed Discontinued Trulicity 1.5 mg/0.5 mL pen injector See Rx Instructions .ROUTE .COMPLEX Qty: 2 11RF Dose Instruction: INJECT 0.5ML (1.5MG) SUBCUTANEOUSLY WEEKLY Rx Instructions: INJECT 0.5ML (1.5MG) SUBCUTANEOUSLY WEEKLY ON SUNDAYS. turmeric 400 mg capsule 400 mg PO DAILY Qty: 30 11RF Lantus Solostar U-100 Insulin 100 unit/mL (3 mL) insulin pen 26 unit subcut BID Qty: 15 10RF miconazole nitrate [Desenex] 2 % powder 1 applic TOP BID PRN (Reason: Skin Irritation) triamcinolone acetonide 0.1 % ointment 1 appln TOP BID PRN (Reason: Skin Irritation) cetirizine [Zyrtec] 10 mg tablet 5 mg PO QAM PRN (Reason: itching) hydrochlorothiazide 25 mg tablet 25 mg PO QAM Discharge Orders: Discharge Order (Routine); Ordered 04/26/22 Ordered By: Jovan Sheth/Other Patient Handouts: Managing Type 2 Diabetes Admission Data Admit Date/Time: 04/17/22 10:41 Attending Provider: Jovan Bliss Admit Provider: Benedicto Bui Primary Care Provider: hSady Edwards [facility] Other Providers: Benedicto Bui ; [place] ; Peterson Lloyd Coding Level of Care Code D/C DAY MANAGEMENT >30 MINS Diagnoses Infection due to ESBL-producing Escherichia coli A49.8; Z16.12 ARF (acute renal failure) N17.9 COPD (chronic obstructive pulmonary disease) J44.9 HFrEF (heart failure with reduced ejection fraction) I50.20 Diabetes E11.9 Depression F32.9 Pacemaker Z95.0 Dry skin dermatitis L85.3
--- NOTE | 2022-05-05 14:14 | Coding Query ---
CONGESTIVE HEART FAILURE To Promote full compliance with coding requirements relating to patient care, physician participation is requested in all cases of medical billing coder uncertainty. Please assist us with the following questions. CHF is documented beginning on the ER and the H&P documents acute diastolic heart failure, the 04/18 Progress Note documents suspected CHF exacerbation, and the Progress Notes from 04/19 to Discharge Summary document HFrEF. It is not clear due to conflicting documentation, the type and acuity of the CHF. To accurately code this diagnosis and to compare patient severity, we ask that you specify the type of heart failure by placing an X within the parenthesis (x). SYSTOLIC HEART FAILURE (HFrEF) ( ) Acute ( ) Chronic ( xx) Acute on Chronic ( ) Rheumatic ( ) Unknown DIASTOLIC HEART FAILURE (HFpEF) ( ) Acute ( ) Chronic ( ) Acute on Chronic ( ) Rheumatic ( ) Unknown COMBINED SYSTOLIC AND DIASTOLIC HEART FAILURE ( ) Acute ( ) Chronic ( ) Acute on Chronic ( ) Rheumatic ( ) Unknown Thank you Lucille Smith [facility]
--- NOTE | 2022-05-05 14:20 | Coding Query ---
CODING QUERY To promote full compliance with coding requirements relating to patient care, provider participation is requested in all cases of telephone directory deliverer uncertainty. Please assist us with the question(s) below: Coding Question(s): Progress Notes 04/19 to Discharge Summary document, "Diagnosis on admission was acute on chronic respiratory failure with possible pneumonia . The patient has no respiratory symptoms. COPD stablehome oxygen dependent 2 L. Stopped vancomycin. 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 her ABGs on admission showed metabolic alkalosis and chronic respiratory acidosis. Possible overdiuresis at the long-term facility. She has contraction metabolic alkalosis and compensated respiratory acidosis producing elevated bicarb levels.". It is not clear if the Acute Respiratory Failure and the possible Pneumonia were ruled out or where present initially and resolved or other. Please specify below, in your clinical opinion, regarding each of the diagnosis: Regarding Acute Respiratory Failure: ( ) Diagnosed initially and resolved ( xx ) Ruled Out ( ) Other: Please Specify Regarding Pneumonia: ( ) Diagnosed initially and resolved ( xx ) Ruled Out ( ) Other: Please Specify Physician's Response(s): Thank you Lucille Smith Principal Diagnosis: "that condition established after study, to be chiefly responsible for occasioning the admission of the patient to the hospital for care." Co-Existing Principal Diagnosis: "when two or more diagnoses equally meet the criteria for principal diagnosis as determined by the circumstances of admission, diagnostic work up, and/or therapy provided, and the Alphabetic Index, Tabular List, or another coding guideline does not provide sequencing direction, any one of the diagnoses may be sequenced first." "When the physician has documented what appears to be a current diagnosis in the body of the record, but has not included the diagnosis in the final diagnostic statement, the physician should be asked whether the diagnosis should be added." (Source Coding [facility] 2 QTR90. p3-4) PATRICIA
== END 2022-04-26 15:25 | DRG 689 ==
LOC: ED 09:21 → SUATTDRO 10:41 → 4W 10:41 → 3W 04-18 15:44

== ENCOUNTER 2023-05-22 09:26 | Inpatient (IN) ==
--- NOTE | 2023-05-22 09:56 | Emergency Department Note ---
Impression & Plan Acute and chronic respiratory failure with hypercapnia, Somnolence, Hyperkalemia, Elevated troponin, Elevated brain natriuretic peptide (BNP) level ED Provider Note ED Provider Note NAME: PAPA KELLY AGE:78 SEX: Female : 1945 ARRIVES VIA: EMS INFORMANT: Patient, EMS ED PROVIDER(s): Kisha Johnson DO CHIEF COMPLAINT: Increased trouble breathing, fatigue, recent flu HPI: This is a 78-year-old female who presents via EMS from [facility] due to increased respiratory distress and fatigue. EMS reports patient diagnosed with influenza A on May 11. She does have a complicated past medical history but does not routinely wear oxygen. She reported increased difficulty breathing to staff there. They have noticed increased fatigue and patient refusing to get out of bed in recent days as well. Patient states she has chronic pain but will not say where. She complains of increased cough and difficulty breathing. EMS placed patient on oxygen via facemask with improvement. They state patient does seem mildly confused. PAST MEDICAL HISTORY:See Below PAST SURGICAL HISTORY:See Below FAMILY HISTORY:See Below SOCIAL HISTORY:See Below HOME MEDICATIONS:See Below ALLERGIES:See Below VITALS:See Below PHYSICAL EXAMINATION: GENERAL: alert, unwell appearing, morbidly obese, moderate distress, BMI 52 EYE EXAM: normal conjunctiva, PERRL and EOM's grossly intact OROPHARYNX: no exudate, no erythema, lips, buccal mucosa, and tongue normal and mucous membranes are dry NECK: supple, no nuchal rigidity, no adenopathy, non-tender LUNGS: Clear to auscultation. Normal chest wall mechanics, no w/r/r HEART: no murmurs, S1 normal and S2 normal ABDOMEN: abdomen soft, non-tender, normo-active bowel sounds, no masses, no rebound or guarding. BACK: Back is symmetrical on inspection and there is no deformity, no midline tenderness, no CVA tenderness. SKIN: no rashes, petechiae, orbruising UPPER EXTREMITIES: upper extremities are grossly normal. FROM, nml pulses b/l. LOWER EXTREMITIES: 1+ b/l pitting edema. Chronic appearing skin changes, FROM, nml pulses b/l. NEURO EXAM: Refuses to cooperate for neurotesting, will answer simple questions at bedside, no obvious facial droop, no dysarthria Vital Signs: reviewed and remarkable Differential Diagnosis: pneumonia, bronchitis, COPD/Asthma exacerbation, pneumothorax, pulmonary embolism, congestive heart failure, acute coronary syndrome, as well as others were considered MEDICAL DECISION MAKING: This is an ill-appearing 78-year-old who presents via EMS from a local facility due to concern for increased shortness of breath. Patient with prior history of pulmonary problems including COPD. Patient ill-appearing with increased respiratory distress on arrival here. While oxygen via facemask was maintaining her saturation her work of breathing was still increased and so RT contacted to transition the patient to BiPAP. Labs drawn and sent, IV established, EKG and chest x-ray performed at bedside interpreted by me and patient monitored on telemetry. First ABG did show acidemia and significant hypercapnia. Patient did have improvement in her work of breathing and tachypnea with use of BiPAP. Patient noted to have mild leukocytosis, increased troponin and elevated BNP. Patient does have history of CHF additionally although chest x-ray not suggestive of pulmonary edema. No evidence of pneumonia, and viral nasal panel negative. Repeat ABG did show improvement. Given complicated past medical history, acute respiratory failure with hypoxia and hypercapnia requiring BiPAP intervention, need for ongoing management, case discussed with the hospitalist team for additional evaluation and management. Consultation(s): 1135: Discussed with Dr. Fuentes, [place] hospitalist, for additional evaluation and mgmt. ER Treatment Provided: See below Diagnostics Interpreted By Me: -ECG: Paced at 92, leftward axis, prolonged intervals, no significant change compared to April 18, 2022 -Cardiac Monitoring: An order was placed for continuous cardiac monitoring. The monitor shows a rate of 80 with paced rhythm. -Laboratory studies: As stated above and show below. -Imaging studies: X-ray Chest: A single view study of the chest was reviewed and was negative for cardiomegaly, focal infiltrate, effusion, pulmonary edema, or wide mediastinum. Pacemaker noted. Triage Nursing Note Reviewed Prior/Outside Records Reviewed -prior discharge summary reviewed Critical Care: Critical care of 48 min performed to assess and manage high likelihood of life- threatening acute hypoxic respiratory failure, involving labs and imaging performed with assessment to evaluate dyspnea diagnosis with frequent reassessment. This time includes bedside time, treatment discussions with patient/family/consultants, documentation time and excludes procedure time. 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) Syncope and collapse (06/03/13) Rectal abscess Vertigo Surgical History History of biopsy of temporal artery History of colonoscopy (~06/2010) History of dilation and curettage History of neurologic surgery rhizotomy History of appendectomy History of total abdominal hysterectomy Reports KERRI-BSO S/P knee replacement S/P cholecystectomy Family History Family/Other Hypertension Diabetes Cancer Adopted Heart disease Grandmother Diabetes Heart disease Grandfather Heart disease Aunt Cancer Uncle Cancer Other No pertinent family history in first degree relatives Social History Smoking Status: Unknown if ever smoked Second Hand Exposure: Yes; Do You Dip or Chew Tobacco: No; Hx Alcohol Use: No Hx Substance Use: No Preferred Language: Vietnamese Communication Ability: Effective Sanitarian Aide Required: No Beliefs That Will Affect Care: None marital status: / Current Living Situation: Skilled Nursing Current Living Situation Comment: Lives at [facility] Other Information That Helps Us Care for You: No Feels Safe at Home: Yes Assistive Devices: Hospital Bed, Mechanical Lift and Wheelchair Allergies Allergies Allergy/AdvReac Type Severity Reaction Status Date / Time chocolate flavor Allergy Intermediate Headache Verified 02/07/23 10:45 erythromycin base Allergy Intermediate CONFUSION, Verified 02/07/23 10:45 HEADACHE nitrofurantoin Allergy Intermediate 15 Verified 02/07/23 10:45 different symptoms Home Meds Home Medications Medication Instructions Recorded Confirmed lancets 30 gauge ([employer]WORK Efrain #25 ea 11/24/18 06/24/22 Lancets) acetaminophen 500 mg tablet 1,000 mg PO Q8H PRN Pain 02/07/23 05/22/23 (Tylenol Extra Strength) levothyroxine 50 mcg tablet 50 mcg PO DAILY 02/07/23 05/22/23 Milk of Magnesia 30 ml PO DAILY 05/22/23 05/22/23 benzonatate 200 mg capsule 200 mg PO TID 05/22/23 05/22/23 bisacodyl 10 mg rectal suppository 10 mg ME DAILY PRN Constipation 05/22/23 05/22/23 (Dulcolax (bisacodyl)) fluticasone propionate 50 2 spray intranasal QAM 05/22/23 05/22/23 mcg/actuation nasal spray,suspension guaifenesin 600 mg tablet, 600 mg PO Q12H 05/22/23 05/22/23 extended release 12 hr (Mucinex) insulin glargine 100 unit/mL 35 unit subcut BID 05/22/23 05/22/23 subcutaneous solution (Lantus U-100 Insulin) insulin lispro 100 unit/mL 1 sliding scale dose subcut 05/22/23 05/22/23 subcutaneous solution (Humalog USEASDIRECTD U-100 Insulin) ipratropium 0.5 mg-albuterol 3 mg 3 ml inhalation Q2H PRN 05/22/23 05/22/23 (2.5 mg base)/3 mL nebulization SOB/wheezing soln ipratropium 0.5 mg-albuterol 3 mg 3 ml inhalation QID 05/22/23 05/22/23 (2.5 mg base)/3 mL nebulization soln ipratropium bromide 17 2 puff inhalation Q8H PRN 05/22/23 05/22/23 mcg/actuation HFA aerosol inhaler Shortness Of Breath (Atrovent HFA) lorazepam 0.5 mg tablet 0.5 mg PO TID 05/22/23 05/22/23 menthol 0.44 %-zinc oxide 20.6 % 1 applic topical UD 05/22/23 05/22/23 topical ointment (Calmoseptine) menthol 4 % topical gel (Biofreeze 1 applic topical Q8H PRN Pain 05/22/23 05/22/23 (menthol)) mineral oil-isopropyl myristat 1 applic topical BID 05/22/23 05/22/23 lotion prednisone 10 mg tablet 10 mg PO DIRECTED 05/22/23 05/22/23 prednisone 20 mg tablet 20 mg PO UD 01/21/24 01/21/24 sodium phosphates 19 gram-7 118 ml ME DAILY PRN Constipation 05/22/23 05/22/23 gram/118 mL enema (Fleet Enema) Previous Rx's Medication Instructions Recorded fluticasone fur. 200 mcg-umeclid 1 inh inhalation QAM #60 ea 04/06/21 62.5 mcg-vilant 25 mcg inhalat.powder (Trelegy Ellipta) venlafaxine 75 mg capsule,extended 225 mg (3 x 75 mg) PO QAM #90 caps 04/06/21 release 24 hr pen needle, diabetic 31 gauge x #100 ea 06/11/21 5/16" (Comfort EZ Pen Echo) atorvastatin 10 mg tablet 10 mg PO 3XWK #36 tabs 09/29/21 omeprazole 20 mg capsule,delayed 20 mg PO QAM #90 caps 10/21/21 release potassium chloride 10 mEq 10 meq PO DAILY #10 tabs 04/26/22 tablet,extended release(part/cryst) Results & Data (ED) Vital Signs Vital Signs - 24 hr 05/22/23 09:34 05/22/23 09:34 05/22/23 09:39 Temperature 36.6 C Temperature Source Axillary Pulse Rate 85 92 H Pulse Rate [Apical] Pulse Rate from SpO2 Sensor 92 H Respiratory Rate 32 H 29 H Respiratory Effort / Characteristics Non-Labored Spontaneous Respiratory Depth Normal Respiratory Pattern Tachypnea Blood Pressure 191/117 H Blood Pressure [Right Arm] Blood Pressure Mean 141 Blood Pressure Mean [Right Arm] Blood Pressure Position Sitting Blood Pressure Position [Right Arm] Pulse Oximetry 90 90 98 Oxygen Delivery Method Nasal Cannula Nasal Cannula BiPAP Oxygen Flow Rate 4 4 Fraction of Inspired Oxygen Sepsis Recent Fever Within 48 Hours Yes Sepsis New/Unexplained Change in Mental Status N/A Sepsis Action Taken by Nursing No Action Required 05/22/23 09:40 05/22/23 09:40 05/22/23 09:50 Temperature Temperature Source Pulse Rate 92 H 91 H 89 Pulse Rate [Apical] Pulse Rate from SpO2 Sensor 91 H 89 Respiratory Rate 29 H 26 H Respiratory Effort / Characteristics Respiratory Depth Respiratory Pattern Blood Pressure Blood Pressure [Right Arm] Blood Pressure Mean Blood Pressure Mean [Right Arm] Blood Pressure Position Blood Pressure Position [Right Arm] Pulse Oximetry 99 93 Oxygen Delivery Method BiPAP BiPAP Oxygen Flow Rate Fraction of Inspired Oxygen Sepsis Recent Fever Within 48 Hours Sepsis New/Unexplained Change in Mental Status Sepsis Action Taken by Nursing 05/22/23 09:58 05/22/23 09:58 05/22/23 10:00 Temperature Temperature Source Pulse Rate 82 Pulse Rate [Apical] 84 Pulse Rate from SpO2 Sensor 81 Respiratory Rate 24 29 H Respiratory Effort / Characteristics Non-Labored Spontaneous Respiratory Depth Normal Respiratory Pattern Tachypnea Blood Pressure Blood Pressure [Right Arm] 191/117 H Blood Pressure Mean Blood Pressure Mean [Right Arm] 141 Blood Pressure Position Blood Pressure Position [Right Arm] Sitting Pulse Oximetry 96 96 Oxygen Delivery Method BiPAP BiPAP BiPAP Oxygen Flow Rate Fraction of Inspired Oxygen Sepsis Recent Fever Within 48 Hours Sepsis New/Unexplained Change in Mental Status Sepsis Action Taken by Nursing 05/22/23 10:08 05/22/23 10:10 05/22/23 10:20 Temperature Temperature Source Pulse Rate 86 79 77 Pulse Rate [Apical] Pulse Rate from SpO2 Sensor 80 72 Respiratory Rate 27 H 27 H 26 H Respiratory Effort / Characteristics Spontaneous Short of Breath Respiratory Depth Shallow Respiratory Pattern Tachypnea Blood Pressure Blood Pressure [Right Arm] Blood Pressure Mean Blood Pressure Mean [Right Arm] Blood Pressure Position Blood Pressure Position [Right Arm] Pulse Oximetry 95 100 98 Oxygen Delivery Method BiPAP BiPAP Oxygen Flow Rate Fraction of Inspired Oxygen 30 Sepsis Recent Fever Within 48 Hours Sepsis New/Unexplained Change in Mental Status Sepsis Action Taken by Nursing 05/22/23 10:30 05/22/23 10:31 05/22/23 10:40 Temperature Temperature Source Pulse Rate 76 75 Pulse Rate [Apical] 78 Pulse Rate from SpO2 Sensor 76 75 Respiratory Rate 27 H 27 H 29 H Respiratory Effort / Characteristics Spontaneous Respiratory Depth Respiratory Pattern Blood Pressure Blood Pressure [Right Arm] Blood Pressure Mean Blood Pressure Mean [Right Arm] Blood Pressure Position Blood Pressure Position [Right Arm] Pulse Oximetry 99 95 96 Oxygen Delivery Method BiPAP BiPAP BiPAP Oxygen Flow Rate Fraction of Inspired Oxygen 30 Sepsis Recent Fever Within 48 Hours Sepsis New/Unexplained Change in Mental Status Sepsis Action Taken by Nursing 05/22/23 10:50 05/22/23 10:53 05/22/23 11:30 Temperature Temperature Source Pulse Rate 75 76 Pulse Rate [Apical] 77 Pulse Rate from SpO2 Sensor 75 77 Respiratory Rate 26 H 27 H 24 Respiratory Effort / Characteristics Spontaneous Respiratory Depth Respiratory Pattern Blood Pressure 164/90 H Blood Pressure [Right Arm] Blood Pressure Mean 114 Blood Pressure Mean [Right Arm] Blood Pressure Position Blood Pressure Position [Right Arm] Pulse Oximetry 95 96 96 Oxygen Delivery Method BiPAP BiPAP BiPAP Oxygen Flow Rate Fraction of Inspired Oxygen 30 Sepsis Recent Fever Within 48 Hours Sepsis New/Unexplained Change in Mental Status Sepsis Action Taken by Nursing 05/22/23 13:36 05/22/23 15:15 Temperature Temperature Source Pulse Rate 69 Pulse Rate [Apical] 69 Pulse Rate from SpO2 Sensor Respiratory Rate 28 H Respiratory Effort / Characteristics Respiratory Depth Normal Respiratory Pattern Blood Pressure Blood Pressure [Right Arm] 188/97 H Blood Pressure Mean Blood Pressure Mean [Right Arm] 127 Blood Pressure Position Blood Pressure Position [Right Arm] Semi-fowlers Pulse Oximetry 98 Oxygen Delivery Method BiPAP Oxygen Flow Rate Fraction of Inspired Oxygen Sepsis Recent Fever Within 48 Hours Sepsis New/Unexplained Change in Mental Status Sepsis Action Taken by Nursing Laboratory Data 05/24/23 04:38 05/24/23 04:38 Lab Results 05/22/23 05/22/23 05/22/23 Range/Units 09:42 09:54 11:24 WBC 18.24 H (4.8-10.8) K/ul RBC 5.48 H (4.20-5.40) M/uL Hgb 15.8 (12.0-16.0) g/dl POC Hgb 17.3 H 16.3 H (12.0-16.0) g/dl Hct 49.5 H (37.0-47.0) % POC Hct 51 H 48 H (37-47) % MCV 90.3 (80.0-100.0) fL MCH 28.8 (25.0-34.0) pg MCHC 31.9 L (32.0-36.0) g/dL RDW Std Deviation 44.4 (36.4-46.3) fL RDW Coeff of Iman 13.4 (11.5-14.5) % Plt Count 329 (130-400) K/uL MPV 10.4 (9.4-12.4) fL Immature Gran % (Auto) 0.9 % Neut % (Auto) 83.8 % Lymph % (Auto) 10.4 % [place] % (Auto) 4.3 % Eos % (Auto) 0.3 % Baso % (Auto) 0.3 % Neut # (Auto) 15.29 H (1.40-6.50) K/uL Lymph # (Auto) 1.89 (1.20-3.40) K/uL [place] # (Auto) 0.79 H (0.11-0.59) K/uL Eos # (Auto) 0.06 (0.00-0.50) K/uL Baso # (Auto) 0.05 (0.00-0.20) K/uL Immature Gran # (Auto) 0.16 (0.01-0.20) K/uL D-Dimer (0-500) ug/L FEU POC pH 7.16 L* 7.24 L (7.35-7.45) POC pCO2 91 H 71 H (35-46) mmHg POC pO2 63 L 63 L (80-95) mmHg POC HCO3 32 H 30 H (19-24) charan/L POC Total CO2 35 H 32 H (24-31) mmol/L POC Base Excess 4.0 H 3.0 H (-9-1.8) charan/L POC ABG O2 Sat 83.0 L 86.0 L (90-95) % VBG pH (7.36-7.41) VBG pCO2 (38-50) mmHg VBG pO2 mmHg VBG HCO3 mmol/L VBG O2 Saturation % VBG Base Excess mEq/L POC Sodium 136 135 (135-144) mmol/L Sodium 134 L (136-145) mmol/L POC Potassium 6.3 H* 5.9 H (3.3-5.0) mmol/L Potassium 6.1 H* (3.5-5.1) mmol/L Chloride 99 (98-107) mmol/L Carbon Dioxide 32 (21-32) mmol/L Anion Gap 3 (3-11) BUN 31 H (6-23) mg/dl Creatinine 0.96 (0.6-1.2) mg/dl Est Cr Clr Drug Dosing Not Reportable Est GFR ( Amer) 65.7 ml/min Est GFR (Non-Af Amer) 56.6 ml/min BUN/Creatinine Ratio 32.3 H (10-20) Glucose 178 H (70-99(Fasting)) mg/dl POC Glucose (70-99) mg/dl Lactate 0.8 (0.4-2.0) mmol/L Calcium 9.7 (8.6-10.3) mg/dl Magnesium 1.8 (1.7-2.4) mg/dl Total Bilirubin 0.4 (0.2-1.0) mg/dl Direct Bilirubin 0.1 (0-0.2) mg/dl AST 14 (13-39) U/L ALT 13 (7-52) U/L Alkaline Phosphatase 117 H (34-104) U/L Troponin I High Sens 61.6 H* (0-14) pg/ml B-Natriuretic Peptide 416 H (0-100) pg/ml Total Protein 8.6 H (6.0-8.3) gm/dl Albumin 4.1 (3.4-5.0) gm/dl Procalcitonin 0.15 (0-0.5) ng/ml Urine Color Urine Appearance (Clear) Urine pH (4.5-7.5) Ur Specific [place] (1.000-1.030) Urine Protein (Negative) Urine Glucose (UA) (Negative) Urine Ketones (Negative) Urine Blood (Negative) Urine Nitrite (Negative) Urine Bilirubin (Negative) Urine Urobilinogen (Negative) Ur Leukocyte Esterase (Negative) Urine RBC (0-4) /hpf Urine WBC (0-5) /hpf Ur Epithelial Cells (0-5) /lpf Urine Bacteria (Negative) Nasal Screen MRSA (PCR) (Negative) 05/22/23 05/22/23 05/22/23 Range/Units 11:55 11:58 14:20 WBC (4.8-10.8) K/ul RBC (4.20-5.40) M/uL Hgb (12.0-16.0) g/dl POC Hgb (12.0-16.0) g/dl Hct (37.0-47.0) % POC Hct (37-47) % MCV (80.0-100.0) fL MCH (25.0-34.0) pg MCHC (32.0-36.0) g/dL RDW Std Deviation (36.4-46.3) fL RDW Coeff of Iman (11.5-14.5) % Plt Count (130-400) K/uL MPV (9.4-12.4) fL Immature Gran % (Auto) % Neut % (Auto) % Lymph % (Auto) % [place] % (Auto) % Eos % (Auto) % Baso % (Auto) % Neut # (Auto) (1.40-6.50) K/uL Lymph # (Auto) (1.20-3.40) K/uL [place] # (Auto) (0.11-0.59) K/uL Eos # (Auto) (0.00-0.50) K/uL Baso # (Auto) (0.00-0.20) K/uL Immature Gran # (Auto) (0.01-0.20) K/uL D-Dimer (0-500) ug/L FEU POC pH (7.35-7.45) POC pCO2 (35-46) mmHg POC pO2 (80-95) mmHg POC HCO3 (19-24) charan/L POC Total CO2 (24-31) mmol/L POC Base Excess (-9-1.8) charan/L POC ABG O2 Sat (90-95) % VBG pH 7.18 L (7.36-7.41) VBG pCO2 89 H (38-50) mmHg VBG pO2 35 mmHg VBG HCO3 33 mmol/L VBG O2 Saturation < 60.0 % VBG Base Excess 2.0 mEq/L POC Sodium (135-144) mmol/L Sodium 135 L 135 L (136-145) mmol/L POC Potassium (3.3-5.0) mmol/L Potassium 5.5 H 5.9 H (3.5-5.1) mmol/L Chloride 100 99 (98-107) mmol/L Carbon Dioxide 30 30 (21-32) mmol/L Anion Gap 5 6 (3-11) BUN 33 H 33 H (6-23) mg/dl Creatinine 1.01 0.97 (0.6-1.2) mg/dl Est Cr Clr Drug Dosing 68.0 70.8 Est GFR ( Amer) 61.7 64.8 ml/min Est GFR (Non-Af Amer) 53.3 55.9 ml/min BUN/Creatinine Ratio 32.7 H 34.0 H (10-20) Glucose 157 H 146 H (70-99(Fasting)) mg/dl POC Glucose 128 H (70-99) mg/dl Lactate (0.4-2.0) mmol/L Calcium 9.1 9.4 (8.6-10.3) mg/dl Magnesium (1.7-2.4) mg/dl Total Bilirubin (0.2-1.0) mg/dl Direct Bilirubin (0-0.2) mg/dl AST (13-39) U/L ALT (7-52) U/L Alkaline Phosphatase (34-104) U/L Troponin I High Sens 128.2 H* D (0-14) pg/ml B-Natriuretic Peptide (0-100) pg/ml Total Protein (6.0-8.3) gm/dl Albumin (3.4-5.0) gm/dl Procalcitonin (0-0.5) ng/ml Urine Color Yellow Urine Appearance Slightly Cloudy (Clear) Urine pH 5.5 (4.5-7.5) Ur Specific [place] >= 1.030 (1.000-1.030) Urine Protein 3+ H (Negative) Urine Glucose (UA) Negative (Negative) Urine Ketones Negative (Negative) Urine Blood 3+ H (Negative) Urine Nitrite Negative (Negative) Urine Bilirubin 1+ H (Negative) Urine Urobilinogen Negative (Negative) Ur Leukocyte Esterase 1+ H (Negative) Urine RBC 10-30 H (0-4) /hpf Urine WBC >30 H (0-5) /hpf Ur Epithelial Cells >30 H (0-5) /lpf Urine Bacteria 1+ H (Negative) Nasal Screen MRSA (PCR) (Negative) 05/22/23 05/22/23 Range/Units 15:37 15:48 WBC (4.8-10.8) K/ul RBC (4.20-5.40) M/uL Hgb (12.0-16.0) g/dl POC Hgb (12.0-16.0) g/dl Hct (37.0-47.0) % POC Hct (37-47) % MCV (80.0-100.0) fL MCH (25.0-34.0) pg MCHC (32.0-36.0) g/dL RDW Std Deviation (36.4-46.3) fL RDW Coeff of Iman (11.5-14.5) % Plt Count (130-400) K/uL MPV (9.4-12.4) fL Immature Gran % (Auto) % Neut % (Auto) % Lymph % (Auto) % [place] % (Auto) % Eos % (Auto) % Baso % (Auto) % Neut # (Auto) (1.40-6.50) K/uL Lymph # (Auto) (1.20-3.40) K/uL [place] # (Auto) (0.11-0.59) K/uL Eos # (Auto) (0.00-0.50) K/uL Baso # (Auto) (0.00-0.20) K/uL Immature Gran # (Auto) (0.01-0.20) K/uL D-Dimer 690 H* (0-500) ug/L FEU POC pH (7.35-7.45) POC pCO2 (35-46) mmHg POC pO2 (80-95) mmHg POC HCO3 (19-24) charan/L POC Total CO2 (24-31) mmol/L POC Base Excess (-9-1.8) charan/L POC ABG O2 Sat (90-95) % VBG pH (7.36-7.41) VBG pCO2 (38-50) mmHg VBG pO2 mmHg VBG HCO3 mmol/L VBG O2 Saturation % VBG Base Excess mEq/L POC Sodium (135-144) mmol/L Sodium (136-145) mmol/L POC Potassium (3.3-5.0) mmol/L Potassium (3.5-5.1) mmol/L Chloride (98-107) mmol/L Carbon Dioxide (21-32) mmol/L Anion Gap (3-11) BUN (6-23) mg/dl Creatinine (0.6-1.2) mg/dl Est Cr Clr Drug Dosing Est GFR ( Amer) ml/min Est GFR (Non-Af Amer) ml/min BUN/Creatinine Ratio (10-20) Glucose (70-99(Fasting)) mg/dl POC Glucose (70-99) mg/dl Lactate (0.4-2.0) mmol/L Calcium (8.6-10.3) mg/dl Magnesium (1.7-2.4) mg/dl Total Bilirubin (0.2-1.0) mg/dl Direct Bilirubin (0-0.2) mg/dl AST (13-39) U/L ALT (7-52) U/L Alkaline Phosphatase (34-104) U/L Troponin I High Sens (0-14) pg/ml B-Natriuretic Peptide (0-100) pg/ml Total Protein (6.0-8.3) gm/dl Albumin (3.4-5.0) gm/dl Procalcitonin (0-0.5) ng/ml Urine Color Urine Appearance (Clear) Urine pH (4.5-7.5) Ur Specific [place] (1.000-1.030) Urine Protein (Negative) Urine Glucose (UA) (Negative) Urine Ketones (Negative) Urine Blood (Negative) Urine Nitrite (Negative) Urine Bilirubin (Negative) Urine Urobilinogen (Negative) Ur Leukocyte Esterase (Negative) Urine RBC (0-4) /hpf Urine WBC (0-5) /hpf Ur Epithelial Cells (0-5) /lpf Urine Bacteria (Negative) Nasal Screen MRSA (PCR) Positive A (Negative) Administered Medications Albuterol (Albut/Ipratrop 3mg/0.5mg Neb 3 Ml Vial) 3 ml INH Q6R [facility] [place]; Protocol Stop: 06/22/23 00:59 Last Admin: 05/24/23 07:45 Dose: Not Given Documented By: Admin: 05/24/23 00:15 Dose: 3 ml Documented By: Admin: 05/23/23 19:48 Dose: Not Given Documented By: Admin: 05/23/23 14:11 Dose: 3 ml Documented By: [facility] Admin: 05/23/23 07:05 Dose: Not Given Documented By: [facility] Admin: 05/23/23 00:07 Dose: 3 ml Documented By: [facility] [place] Budesonide (Budesonide 0.5 Mg/2 Ml Vial (Pulmicort)) 0.5 mg NEB BIDR [facility] [place] Stop: 06/21/23 18:59 Last Admin: 05/24/23 07:47 Dose: 0.5 mg Documented By: Admin: 05/23/23 19:47 Dose: 0.5 mg Documented By: Admin: 05/23/23 07:05 Dose: 0.5 mg Documented By: [facility] Admin: 05/22/23 19:17 Dose: 0.5 mg Documented By: [facility] [place] Carvedilol (Carvedilol 3.125 Mg Tab) 3.125 mg PO BIDM [facility] [place] Stop: 06/23/23 07:59 Last Admin: 05/24/23 09:01 Dose: 3.125 mg Documented By: BERKLEY Enoxaparin Sodium (Enoxaparin Inj 40 Mg/0.4 Ml Syr) 40 mg SQ Q12H [facility] Stop: 06/21/23 16:44 Last Admin: 05/24/23 04:17 Dose: 40 mg Documented By: Admin: 05/23/23 16:51 Dose: 40 mg Documented By: Admin: 05/23/23 05:41 Dose: 40 mg Documented By: Admin: 05/22/23 17:19 Dose: 40 mg Documented By: REYNA Formoterol Fumarate (Formoterol 20 Mcg/2 Ml Vial) 20 mcg NEB BIDR [facility] Stop: 06/21/23 18:59 Last Admin: 05/24/23 07:47 Dose: 20 mcg Documented By: Admin: 05/23/23 19:47 Dose: 20 mcg Documented By: Admin: 05/23/23 07:05 Dose: 20 mcg Documented By: Admin: 05/22/23 19:17 Dose: 20 mcg Documented By: YAQUELIN Doxycycline Hyclate 100 mg/ (Dextrose) 100 mls @ 50 mls/hr IV Q12H [facility] Stop: 05/26/23 23:59 Last Infusion: 05/24/23 11:09 Dose: Infused Documented By: Admin: 05/24/23 09:00 Dose: 50 mls/hr Documented By: Infusion: 05/23/23 22:03 Dose: Infused Documented By: Admin: 05/23/23 20:02 Dose: 50 mls/hr Documented By: Infusion: 05/23/23 10:13 Dose: Infused Documented By: Admin: 05/23/23 08:10 Dose: 50 mls/hr Documented By: Infusion: 05/22/23 21:58 Dose: Infused Documented By: Admin: 05/22/23 19:58 Dose: 50 mls/hr Documented By: LAYO Ertapenem 1,000 mg/ Syringe 10 mls @ 2 mls/min IV Q24H [facility]I Stop: 05/24/23 23:59 Last Admin: 05/23/23 12:11 Dose: 2 mls/min Documented By: RASHAUN Methylprednisolone 40 mg/ (Syringe) 0.64 mls @ 1.5 mls/min IV Q24H [facility]I Stop: 06/23/23 08:59 Last Admin: 05/24/23 09:01 Dose: 1.5 mls/min Documented By: BERKLEY Insulin Aspart (Insulin Aspart Per Unit Charge) 0 units SC ACHS TERI Stop: 06/21/23 16:29 Last Admin: 05/24/23 07:57 Dose: Not Given Documented By: Admin: 05/23/23 20:23 Dose: 1 units Documented By: LAYO Co-signed By: DENICE(2) Admin: 05/23/23 16:50 Dose: 4 units Documented By: RASHAUN Co-signed By: MIMI Admin: 05/23/23 12:12 Dose: 5 units Documented By: RASHAUN Co-signed By: MIHIR Admin: 05/23/23 08:11 Dose: 3 units Documented By: RASHAUN Co-signed By: MIHIR Admin: 05/22/23 21:12 Dose: 3 units Documented By: LAYO Co-signed By: JOCELYN Admin: 05/22/23 16:50 Dose: Not Given Documented By: REYNA Insulin Glargine (Lantus Per Unit Charge) 35 units SQ BID [facility] Stop: 06/21/23 20:59 Last Admin: 05/24/23 09:04 Dose: 35 units Documented By: BERKLEY Co-signed By: RICH Admin: 05/23/23 20:23 Dose: 35 units Documented By: LAYO Co-signed By: DENICE(2) Admin: 05/23/23 08:11 Dose: 35 units Documented By: RASHAUN Co-signed By: MIHIR Admin: 05/22/23 21:12 Dose: 35 units Documented By: LAYO Co-signed By: JOCELYN Levothyroxine Sodium (Levothyroxine Sodium 50 Mcg Tablet) 50 mcg PO DAILYBB TERI Stop: 06/22/23 06:29 Last Admin: 05/23/23 06:04 Dose: Not Given Documented By: LAYO Miconazole Nitrate (Miconazole Nitrate Powder 85 Gm) 1 appln EXT BID TERI Stop: 06/21/23 20:59 Last Admin: 05/24/23 09:02 Dose: 1 appln Documented By: Admin: 05/23/23 20:25 Dose: 1 appln Documented By: Admin: 05/23/23 08:11 Dose: 1 appln Documented By: Admin: 05/22/23 21:07 Dose: 1 appln Documented By: LAYO Multi-Ingredient Mouthwash/Gargle (First - Mouthwash Blm 119 Ml) 5 ml PO Q6H PRN PRN Reason: MOUTH PAIN Stop: 06/23/23 09:58 Last Admin: 05/24/23 11:08 Dose: 5 ml Documented By: BERKLEY Venlafaxine HCl (Venlafaxine Hcl Xr 75 Mg Capxr) [facility] [place] [facility]: 06/22/23 08:59 Last Admin: 05/24/23 09:01 Dose: 225 mg Documented By: Admin: 05/23/23 08:05 Dose: Not Given Documented By: RASHAUN Discontinued Medications Albuterol (Albut/Ipratrop 3mg/0.5mg Neb 3 Ml Vial) 3 ml NEB NOW [facility]; Protocol Stop: 05/22/23 10:00 Last Admin: 05/22/23 10:31 Dose: 3 ml Documented By: DONNA Albuterol (Albut/Ipratrop 3mg/0.5mg Neb 3 Ml Vial) 3 ml NEB NOW [facility]; Protocol Stop: 05/22/23 11:09 Last Admin: 05/22/23 11:29 Dose: 3 ml Documented By: DONNA Albuterol (Albut/Ipratrop 3mg/0.5mg Neb 3 Ml Vial) [facility] Stop: 06/21/23 18:59 Last Admin: 05/22/23 19:17 Dose: Not Given Documented By: YAQUELIN Amlodipine Besylate (Amlodipine Besylate 5 Mg Tab) [address] [facility] Stop: 06/22/23 12:44 Last Admin: 05/23/23 13:14 Dose: 5 mg Documented By: RASHAUN Amlodipine Besylate (Amlodipine Besylate 5 Mg Tab) 5 mg PO NOW ONE Stop: 05/23/23 14:10 Last Admin: 05/23/23 14:27 Dose: 5 mg Documented By: RASHAUN Budesonide (Budesonide 0.5 Mg/2 Ml Vial (Pulmicort)) 0.5 mg NEB ONE ONE Stop: 05/22/23 18:58 Last Admin: 05/22/23 19:08 Dose: 0.5 mg Documented By: JODIE Dextrose (Dextrose 50% 50 Ml Syringe) 50 ml IV NOW STA Stop: 05/22/23 18:46 Last Admin: 05/22/23 19:55 Dose: 50 ml Documented By: LAYO Formoterol Fumarate (Formoterol 20 Mcg/2 Ml Vial) 20 mcg NEB ONE ONE Stop: 05/22/23 18:57 Last Admin: 05/22/23 19:08 Dose: 20 mcg Documented By: JODIE Formoterol Fumarate (Formoterol 20 Mcg/2 Ml Vial) Confirm Administered Dose 20 mcg .ROUTE .STK-MED ONE Stop: 05/22/23 19:05 Last Admin: 05/22/23 19:17 Dose: Not Given Documented By: YAQUELIN Furosemide (Furosemide 40 Mg/4 Ml Vial) 40 mg IV ONE ONE Stop: 05/22/23 13:36 Last Admin: 05/22/23 13:48 Dose: 40 mg Documented By: TAMIKO Furosemide (Furosemide 40 Mg/4 Ml Vial) 40 mg IV BID17 TERI Stop: 06/21/23 16:59 Last Admin: 05/22/23 17:19 Dose: 40 mg Documented By: REYNA Furosemide (Furosemide 40 Mg/4 Ml Vial) 40 mg IV ONE ONE Stop: 05/22/23 23:36 Last Admin: 05/22/23 23:12 Dose: 40 mg Documented By: LAYO Guaifenesin (Guaifenesin 600 Mg Tabcr) 600 mg PO Q12H TERI Stop: 06/21/23 13:44 Last Admin: 05/22/23 16:39 Dose: Not Given Documented By: RASHAUN(2) Sodium Chloride (Nss) 1,000 mls @ 125 mls/hr IV .Q8H TERI Stop: 06/21/23 09:44 Last Admin: 05/22/23 20:15 Dose: Not Given Documented By: Infusion: 05/22/23 13:55 Dose: Infused Documented By: Admin: 05/22/23 11:01 Dose: 125 mls/hr Documented By: TAMIKO Sodium Chloride (Nss) 500 mls @ 999 mls/hr IV .Q31M ONE Stop: 05/22/23 12:28 Last Infusion: 05/22/23 13:55 Dose: Infused Documented By: Admin: 05/22/23 12:48 Dose: 999 mls/hr Documented By: TAMIKO Calcium Gluconate 1,000 mg/ (Sodium Chloride) 60 mls @ 240 mls/hr IV 1230 ONE Stop: 05/22/23 12:44 Last Infusion: 05/22/23 15:07 Dose: Infused Documented By: RASHAUN(2) Admin: 05/22/23 13:48 Dose: 240 mls/hr Documented By: TAMIKO Lorazepam 0.5 mg/ Syringe 0.5 mls @ 2 mls/min IV TID PRN PRN Reason: anxiety while NPO Stop: 06/21/23 14:03 Last Admin: 05/22/23 14:46 Dose: 2 mls/min Documented By: LISA Calcium Gluconate 1,000 mg/ (Sodium Chloride) 60 mls @ 240 mls/hr IV NOW ONE Stop: 05/22/23 19:14 Last Infusion: 05/22/23 20:19 Dose: Infused Documented By: Admin: 05/22/23 20:02 Dose: 240 mls/hr Documented By: LAYO Insulin Human Regular 5 units/ (Syringe) 5 mls @ 3 mls/sec IV ONE STA Stop: 05/22/23 18:45 Last Admin: 05/22/23 19:56 Dose: 3 mls/sec Documented By: LAYO Co-signed By: MARIO Meropenem 500 mg/ Syringe 10 mls @ 2 mls/min IV Q8H TERI; Protocol Stop: 05/24/23 19:59 Last Admin: 05/23/23 04:16 Dose: 2 mls/min Documented By: Admin: 05/22/23 19:51 Dose: 2 mls/min Documented By: LAYO Vancomycin HCl 2,750 mg/ (Sodium Chloride) 555 mls @ 200 mls/hr IV NOW ONE Stop: 05/22/23 21:06 Last Admin: 05/22/23 20:17 Dose: Not Given Documented By: LAYO Methylprednisolone 40 mg/ (Syringe) 0.64 mls @ 1.5 mls/min IV TID TERI Stop: 06/22/23 08:59 Last Admin: 05/23/23 08:11 Dose: 1.5 mls/min Documented By: RASHUAN Methylprednisolone 125 mg/ (Syringe) 2 mls @ 1.5 mls/min IV NOW STA Stop: 05/22/23 18:53 Last Admin: 05/22/23 19:53 Dose: 1.5 mls/min Documented By: LAYO Magnesium Sulfate/Dextrose (Magnesium Sulfate / D5w) 1 gm in 100 mls @ 50 mls/hr IV Q2H [facility] [place] Stop: 05/23/23 09:59 Last Infusion: 05/23/23 10:13 Dose: Infused Documented By: Admin: 05/23/23 08:10 Dose: 50 mls/hr Documented By: Infusion: 05/23/23 08:03 Dose: Infused Documented By: Admin: 05/23/23 06:03 Dose: 50 mls/hr Documented By: LAYO Insulin Human Regular (Novolin-R Insulin Per Unit Charge) 4 units IV NOW STA Stop: 05/22/23 11:09 Last Admin: 05/22/23 11:43 Dose: 4 units Documented By: LISA Co-signed By: TAMIKO Ioversol (Optiray 320 125ml) 118 ml IV ONCE ONE Stop: 05/22/23 16:11 Last Admin: 05/22/23 16:10 Dose: 118 ml Documented By: RAMIRO Lorazepam (Lorazepam 1 Mg/1 Ml Syr Ed Inj Use) Confirm Administered Dose 1 mg .ROUTE .STK-MED ONE Stop: 05/22/23 14:42 Last Admin: 05/22/23 14:47 Dose: Not Given Documented By: LISA Patiromer (Patiromer Calcium Sorbitex 8.4 Gm Pack) 8.4 gm PO DAILY@1200 [facility] Stop: 06/22/23 11:59 Last Admin: 05/23/23 12:11 Dose: 8.4 gm Documented By: RASHAUN Imaging Data Radiologist's Impression: Chest X-Ray 05/22/23 09:34 XR chest 1V portable CLINICAL HISTORY: Sepsis. COMPARISON STUDY: Chest CT April 16, 2018. Chest radiograph April 17, 2022. FINDINGS: Patient is rotated. No pneumothorax or pleural effusion is present. Dual-lead left subclavian pacer remains in place. Cardiomegaly is unchanged. There is no evidence for pulmonary edema. There is no consolidation to suggest pneumonia. IMPRESSION: No acute cardiopulmonary findings. Stable cardiomegaly. ACT 112: Negative or not required by law. Electronically signed by: Dutch Chavira M.D. 05/22/2023 10:22 AM Discharge Plan Visit Data Chief Complaint: Shortness of Breath/Dyspnea Stated Complaint: SOB, LETHARGIC ED Provider: Kisha Johnson Discharge Problem: Acute and chronic respiratory failure with hypercapnia, Somnolence, Hyperkalemia, Elevated troponin, Elevated brain natriuretic peptide (BNP) level Patient Disposition: Admitted As Inpatient Discharge Instructions Interventions: ED Discharge Assessment Last Done: 05/22/23 18:54
[2023-05-22] MEDS ORDERED: ALBUT/IPRATROP 3MG/0.5MG NEB 3 ML VIAL NEB STA ×2 (09:59→11:08)
[2023-05-22 10:02] LABS: Basophils # (auto) 0.05 K/uL (0.00-0.20); Basophils % (auto) 0.3 %; Eosinophils # (auto) 0.06 K/uL (0.00-0.50); Eosinophils % (auto) 0.3 %; Hematocrit (blood only) 49.5 % (37.0-47.0); Hemoglobin 15.8 g/dl (12.0-16.0); Immature Granulocytes # (auto) 0.16 K/uL (0.01-0.20); Immature Granulocytes % (auto) 0.9 %; Lymphocytes # (auto) 1.89 K/uL (1.20-3.40); Lymphocytes % (auto) 10.4 %; Mean Corpuscular Hemoglobin 28.8 pg (25.0-34.0); Mean Corpuscular Hgb Conc 31.9 g/dL (32.0-36.0); Mean Corpuscular Volume 90.3 fL (80.0-100.0); Mean Platelet Volume 10.4 fL (9.4-12.4); Monocytes # (auto) 0.79 K/uL (0.11-0.59); Monocytes % (auto) 4.3 %; Neutrophils # (auto) 15.29 K/uL (1.40-6.50); Neutrophils % (auto) 83.8 %; Platelet Count 329 K/uL (130-400); RDW Coefficient of Variation 13.4 % (11.5-14.5); RDW Standard Deviation 44.4 fL (36.4-46.3); Red Blood Count 5.48 M/uL (4.20-5.40); White Blood Count 18.24 K/ul (4.8-10.8)
--- NOTE | 2023-05-22 10:23 | XRay Report ---
XR chest 1V portable CLINICAL HISTORY: Sepsis. COMPARISON STUDY: Chest CT April 16, 2018. Chest radiograph April 17, 2022. FINDINGS: Patient is rotated. No pneumothorax or pleural effusion is present. Dual-lead left subclavi an pacer remains in place. Cardiomegaly is unchanged. There is no evidence for pulmonary edema. There is no consolidation to suggest pneumonia. IMPRESSION: No acute cardiopulmonary findings. Stable cardiomegaly. ACT 112: Negative or not required by law. Electronically signed by: Dutch Chavira M.D. 05/22/2023 10:22 AM
[2023-05-22 10:24] LABS: Alanine Aminotransferase 13 U/L (7-52); Albumin Level 4.1 gm/dl (3.4-5.0); Alkaline Phosphatase 117 U/L (34-104); Anion Gap 3 (3-11); Aspartate Aminotransferase 14 U/L (13-39); BUN Creatinine Ratio 32.3 (10-20); Bilirubin Direct 0.1 mg/dl (0-0.2); Bilirubin,Total 0.4 mg/dl (0.2-1.0); Blood Urea Nitrogen 31 mg/dl (6-23); Calcium 9.7 mg/dl (8.6-10.3); Carbon Dioxide 32 mmol/L (21-32); Chloride 99 mmol/L (98-107); Est GFR (African American) 65.7 ml/min; Est GFR (Non-African American) 56.6 ml/min; Glucose 178 mg/dl (70-99(Fasting)); Magnesium 1.8 mg/dl (1.7-2.4); Potassium 6.1 mmol/L (3.5-5.1); Sodium 134 mmol/L (136-145); Total Protein 8.6 gm/dl (6.0-8.3)
[2023-05-22 10:28] LABS: Troponin I High Sensitivity 61.6 pg/ml (0-14)
[2023-05-22] MEDS: SODIUM CHLORIDE 0.9% 1,000 ML IV SCH ×2 (11:01→20:15)
[2023-05-22] MEDS ORDERED: NovoLIN-R INSULIN PER UNIT CHARGE IV STA (11:08)
[2023-05-22 11:38] LABS: iSTAT Arterial Blood Gas HCO3 30 meg/L (19-24); iSTAT Arterial Blood Gas pCO2 71 mmHg (35-46); iSTAT Arterial Blood Gas pH 7.24 (7.35-7.45); iSTAT Arterial Blood Gas pO2 63 mmHg (80-95); iSTAT Carbon Dioxide 32 mmol/L (24-31); iSTAT Hematocrit 48 % (37-47); iSTAT Hemoglobin 16.3 g/dl (12.0-16.0); iSTAT Potassium 5.9 mmol/L (3.3-5.0); iSTAT Sodium 135 mmol/L (135-144)
[2023-05-22 11:48] LABS: Adenovirus PCR Not Detected (NotDetected); Bordetella parapertussis PCR Not Detected (NotDetected); Bordetella pertussis PCR Not Detected (NotDetected); Chlamydia pneumoniae PCR Not Detected (NotDetected); Coronavirus 229E PCR Not Detected (NotDetected); Coronavirus CoV-2 (COVID19)PCR Not Detected (NotDetected); Coronavirus HKU1 PCR Not Detected (NotDetected); Coronavirus NL63 PCR Not Detected (NotDetected); Coronavirus OC43PCR Not Detected (NotDetected); Human Metapneumovirus PCR Not Detected (NotDetected); Influenza A PCR Not Detected (NotDetected); Influenza B PCR Not Detected (NotDetected); Mycoplasma pneumoniae PCR Not Detected (NotDetected); Parainfluenza Virus 1 PCR Not Detected (NotDetected); Parainfluenza Virus 2 PCR Not Detected (NotDetected); Parainfluenza Virus 3 PCR Not Detected (NotDetected); Parainfluenza Virus 4 PCR Not Detected (NotDetected); Respiratory Syncytial VirusPCR Not Detected (NotDetected); Rhinovirus/Enterovirus PCR Not Detected (NotDetected)
[2023-05-22] MEDS ORDERED: SODIUM CHLORIDE 0.9% 500 ML IV ONE (11:58)
--- NOTE | 2023-05-22 12:00 | History & Physical Report ---
Date of Service May 22, 2023 Assessment & Plan (1) Acute and chronic respiratory failure with hypercapnia: Plan: Acute hypoxic, hypercapnic respiratory failure. Suspect acute on chronic CHF/volume overload, DDx includes PE Patient with baseline hypercapnic, hypoxic respiratory failure on chronic 1- 1.5 L nasal cannula ABG on admission with severe respiratory acidosis and secondary chronic underlying metabolic alkalosis. On repeat pCO2 improving from 91 -->71, pH improving from 7.17-7.24. VBG trended. Has baseline oxygen dependent COPD, no PFTs available for review Continue inhaler/formulary equivalent BiPAP continuous until pH normalizes Bio fire negative 20 Kilograms above previously reported dry weight, BNP is elevated, and bedside echo shows a noncompressible IVC and flattened apex all consistent with volume overload. Was initially ordered small dose of fluids for? Infection and hyperkalemia, these have been discontinued and diuresis with Lasix twice daily pending REports calf pain in the last week, has been sedentary since flu A last month. Increased risk 2/2 obesity, recent illness, and stasis. CTA initially limited by respiratory status on BiPAP. Subsequent on exam patient is clinically improved, was able to lay flat for extended period for Rodriguez exchange without increased respiratory distress. CTA ordered to R/oh PE; if limited by resp status on reassessment --> DD + LE Dopplers Lactate is normal Patient covered with antibiotics due to poor clinical appearance, feelings of fever, and leukocytosis. She is with history of MRSA. Doxy included for pulmonary coverage rather than Vanco due to body habitus. (2) Hyperkalemia: Plan: Hyperkalemia Potassium 6.1 on admission, repeat 5.9 Received 4 units of IV insulin Patient given 500 cc bolus and 125 cc of maintenance, gentle fluid for hypokalemia with? Underlying UTI, cautious fluid due to history of heart failure. At bedside echo IVC is not collapsible consistent with volume ove rload, fluid subsequently discontinued and Lasix ordered Oral binding agents not able to be tolerated temporarily due to BiPAP dependence. Potassium improving with lasix/insulin. Repeat as noted Calcium gluconate x 1 given. Repeat Q1-Q2H as needed. Creatinine less than 1 on admission EKG paced - PT denies chest pain (3) HFrEF (heart failure with reduced ejection fraction): Plan: Last EF 04/2022 with EF 45%, global hypokinesis, RVSP 38, technically challenging study due to body habitus Last baseline weight is over 1 year ago. Admission weight: 149 kg. Last weight 04/2022 138.9 kg. BNP 416, last 228 in 2021. No evidence of pulmonary edema on chest x-ray. Patient initially given fluids for hyperkalemia, poor p.o. intake, and suspected infection however at bedside echo subsequently w/ a noncollapsible IVC consistent with intravascular volume overload. Fluids discontinued and Lasix ordered. Denies chest pain on admission Troponin trended Continue diuresis twice daily 17, titrate to UOP net output 1-2L negative daily (4) Chronic kidney disease, stage III (moderate): Plan: Creatinine less than 1 on admission BMP as noted Renally dose medications (5) COPD (chronic obstructive pulmonary disease): Plan: Lungs coarse on admission without wheezing Respiratory acidosis as noted Improved on BiPAP Bio fire is negative Continue home inhaler/formulary equivalent, flutter valve and incentive spirometry once able to tolerate and off BiPAP Antibiotics as noted (6) Anxiety with depression: Plan: Home lorazepam continued for benzo dependence and to prevent withdrawal, monitor closely 2/2 sedation and risk of respiratory suppression. While NPO/on BiPAP this has been temporarily switched to IV (7) Morbid obesity: Plan: BMI 54 (8) UTI (urinary tract infection): Plan: Chronic indwelling Rodriguez, exchanged while in the ER. Patient notes she does not have much symptoms due to indwelling Rodriguez is incontinent at baseline and has had fevers/chills last few days Urine contaminated with >30 epis. Repeat pending - History of both MRSA and ESBL E. coli. Prior sensitivities sensitive to ertapenem, gentamicin, meropenem, Zosyn, tobramycin, amox-clav but resistant to amp/sulbactam in 2021. Meropenem and adjunct MRSA coverage with Doxy (9) Diabetes: Plan: Goal BSG [id number] N.p.o. pending improved respiratory status, once improved will advance to DM2/heart healthy diet. Glucose checks every 6 hours while NPO or AC/at bedtime once advanced. Basal bolus SSI ordered based on home requirements of 35 units twice daily of glargine Plan DVT prophylaxis: Lovenox, if VTE is found on above workup will be switched to heparin drip CODE STATUS: DNR/DNI Disposition: PCU Diet: N.p.o. until respiratory status improved History of Present Illness Primary Care Provider: Alex Hassan is a 78-year-old female with a past medical history of COPD, CKD 3, diabetes, depression who presents from Center care with respiratory distress and fatigue; she has been recently diagnosed with influenza A on 05/11/2023. She has increased cough, generalized fatigue aches and discomfort, and does not normally wear oxygen but was brought 4 L of nasal cannula and subsequently switched to BiPAP while in the ER. While in ER she is found to have a leukocytosis with neutrophilic predominance, creatinine at baseline but with contracted ratio of 32.3, elevated potassium of 6.1, BNP of 416, high sensitive troponin of 61.6, and normal procalcitonin. Bio fire is pending. Chest x-ray shows no acute cardiopulmonary findings, no evidence of pulmonary edema, no evidence of pneumonia. Med review per records: Atorvastatin 10 mg daily on Tuesday/Tuesday Ipratropium as needed DuoNebs as needed Humalog sliding scale 350-408 units, 4 14 5012 units, 451-516 units Lantus 35 units twice daily Synthroid 50 mcg daily Lorazepam up to 3 times daily 0.5 mg as needed for anxiety, scheduled Completing a prednisone taper 10 mg and taper to to be complete 05/23 Trelegy fluticasone/umeclidinium/vilanterol daily Venlafaxine 75 mg capsule 3 tablets by mouth in the morning [facility] daily Center care resident who was admitted 04/26/2022 following an episode of acute on chronic respiratory failure with hypercapnia and hypoxia, COPD exacerbation, and probable pneumonia with ESBL E. coli UTI. History of heart failure with EF 45% newly diagnosed at last admission with grade 1 diastolic dysfunction. Patient transferred to long-term care to [facility] [place] due to concerns for care at [facility] in the past. She was transitioned from rehab to long-term care. Baseline 1.5 L nasal cannula Is maintained on Lovenox 40 mg daily for DVT prophylaxis for 2 weeks on arrival DNR/DNI. This is confirmed with patient at time of admission Per center care and triage note: Was diagnosed with influenza A 05/13/2023, and was on IM Rocephin for 1 week for suspected secondary pneumonia. At baseline she is alert and oriented x 4 able to walk with oxygen, progressively more somnolent with muscle aches, lower extremity calf pain, and has not been out of bed due to fatigue and dyspnea. Initial ABG with pH 7.1, pCO2 91. Repeat [id number] 7.2 // consistent with acute respiratory acidosis with underlying chronic metabolic alkalosis. Seen at the bedside. Sonya reports that she has had feelings of fever and chills in the last week. Generally unwell since having flu. Feels weak all over and has had pain in her calfs chronically, but which seems worse in the last week bilaterally. She is not sure if her legs are more swollen than normal. She endorses shortness of breath without chest pain. Denies inspiratory pain. She denies nausea/vomiting/diarrhea. Denies abdominal pain. Is not sure if she has urinary pain, reports that she has a indwelling Rodriguez due to baseline incontinence but has not had any change of sensation with this. Denies flank pain. Endorses COPD, reports she has been taking her medications as normal. She reports that she has had wheezing which has been worse recently. She denies sputum production/sputum change. Discussed w/ son by phone .Flu a few weeks ago with progressive respiratory problems, and increased confusion in the past few days. Son reports has usually been caused by UTIs and dehydration. Has been generally unwell and declining for the last 2 weeks since the flu. No other collateral at time of call, does confirm DNR/DNI. Allergies Allergy/AdvReac Type Severity Reaction Status Date / Time chocolate flavor Allergy Intermediate Headache Verified 02/07/23 10:45 erythromycin base Allergy Intermediate CONFUSION, Verified 02/07/23 10:45 HEADACHE nitrofurantoin Allergy Intermediate 15 Verified 02/07/23 10:45 different symptoms Home Medications Medication Instructions Recorded Confirmed Type lancets 30 gauge (OneTouch Delgage #25 ea 11/24/18 06/24/22 History Lancets) fluticasone fur. 200 mcg-umeclid 1 inh inhalation QAM #60 ea 04/06/21 05/22/23 Rx 62.5 mcg-vilant 25 mcg inhalat.powder (Trelegy Ellipta) venlafaxine 75 mg capsule,extended 225 mg (3 x 75 mg) PO QAM #90 caps 04/06/21 05/22/23 Rx release 24 hr pen needle, diabetic 31 gauge x #100 ea 06/11/21 06/24/22 Rx 5/16" (Comfort EZ Pen [place]) atorvastatin 10 mg tablet 10 mg PO 3XWK #36 tabs 09/29/21 05/22/23 Rx omeprazole 20 mg capsule,delayed 20 mg PO QAM #90 caps 10/21/21 05/22/23 Rx release potassium chloride 10 mEq 10 meq PO DAILY #10 tabs 04/26/22 05/22/23 Rx tablet,extended release(part/cryst) acetaminophen 500 mg tablet 1,000 mg PO Q8H PRN Pain 02/07/23 05/22/23 History (Tylenol Extra Strength) levothyroxine 50 mcg tablet 50 mcg PO DAILY 02/07/23 05/22/23 History Milk of Magnesia 30 ml PO DAILY 05/22/23 05/22/23 History benzonatate 200 mg capsule 200 mg PO TID 05/22/23 05/22/23 History bisacodyl 10 mg rectal suppository 10 mg CO DAILY PRN Constipation 05/22/23 05/22/23 History (Dulcolax (bisacodyl)) fluticasone propionate 50 2 spray intranasal QAM 05/22/23 05/22/23 History mcg/actuation nasal spray,suspension guaifenesin 600 mg tablet, 600 mg PO Q12H 05/22/23 05/22/23 History extended release 12 hr (Mucinex) insulin glargine 100 unit/mL 35 unit subcut BID 05/22/23 05/22/23 History subcutaneous solution (Lantus U-100 Insulin) insulin lispro 100 unit/mL 1 sliding scale dose subcut 05/22/23 05/22/23 History subcutaneous solution (Humalog USEASDIRECTD U-100 Insulin) ipratropium 0.5 mg-albuterol 3 mg 3 ml inhalation Q2H PRN 05/22/23 05/22/23 History (2.5 mg base)/3 mL nebulization SOB/wheezing soln ipratropium 0.5 mg-albuterol 3 mg 3 ml inhalation QID 05/22/23 05/22/23 History (2.5 mg base)/3 mL nebulization soln ipratropium bromide 17 2 puff inhalation Q8H PRN 05/22/23 05/22/23 History mcg/actuation HFA aerosol inhaler Shortness Of Breath (Atrovent HFA) lorazepam 0.5 mg tablet 0.5 mg PO TID 05/22/23 05/22/23 History menthol 0.44 %-zinc oxide 20.6 % 1 applic topical UD 05/22/23 05/22/23 History topical ointment (Calmoseptine) menthol 4 % topical gel (Biofreeze 1 applic topical Q8H PRN Pain 05/22/23 05/22/23 History (menthol)) mineral oil-isopropyl myristat 1 applic topical BID 05/22/23 05/22/23 History lotion prednisone 10 mg tablet 10 mg PO DIRECTED 05/22/23 05/22/23 History prednisone 20 mg tablet 20 mg PO UD 05/22/23 05/22/23 History sodium phosphates 19 gram-7 118 ml CO DAILY PRN Constipation 05/22/23 05/22/23 History gram/118 mL enema (Fleet Enema) 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) Vertigo Surgical History History of appendectomy History of biopsy of temporal artery History of colonoscopy (~06/2010) History of dilation and curettage History of neurologic surgery History of total abdominal hysterectomy S/P cholecystectomy S/P knee replacement Family History Family/Other Hypertension Diabetes Cancer Adopted Heart disease Grandmother Diabetes Heart disease Grandfather Heart disease Aunt Cancer Uncle Cancer Other No pertinent family history in first degree relatives Social History Smoking Status: Unknown if ever smoked Do You Dip or Chew Tobacco: No; Hx Alcohol Use: No Hx Substance Use: No Preferred Language: [place] Communication Ability: Effective Mail Inserter Required: No Beliefs That Will Affect Care: None marital status: / Current Living Situation: Care Home Current Living Situation Comment: pt has room at [facility] independent living pt to be moving within the month Feels Safe at Home: Yes Assistive Devices: Oxygen - at Night and Walker Physical Exam Physical Exam: General: A&Ox3. NAD. Cooperative. Conversation somewhat limited by BiPAP but follows one-step commands and answers questions appropriately HEENT: Atraumatic, normocephalic. Vision/hearing grossly intact Pulm: Diffusely coarse, no rales/basilar crackles. On BiPAP. Symmetrical chest rise Cardiac: RRR, -mrg. Radial pulses intact and symmetrical. JVD difficult to appreciate due to BMI of 54. Abdominal: Obese, nontender without rebound/guarding Extremities: Bilateral pitting edema and chronic venous stasis changes with ichthyosis. No overlying erythema/warmth/tenderness Results & Data Results & Data Vital Signs (Past 12 Hours) Vital Signs Temp Pulse Pulse Resp BP BP Pulse Ox 05/22/23 11:30 77 24 96 05/22/23 10:53 76 27 H 164/90 H 96 05/22/23 10:50 75 26 H 95 05/22/23 10:40 75 29 H 96 05/22/23 10:31 78 27 H 95 05/22/23 10:30 76 27 H 99 05/22/23 10:20 77 26 H 98 05/22/23 10:10 79 27 H 100 05/22/23 10:08 86 27 H 95 05/22/23 10:00 82 29 H 96 05/22/23 09:58 05/22/23 09:58 84 24 191/117 H 96 05/22/23 09:50 89 26 H 93 05/22/23 09:40 91 H 29 H 99 05/22/23 09:40 92 H 05/22/23 09:39 92 H 29 H 98 05/22/23 09:34 90 05/22/23 09:34 36.6 C 85 32 H 191/117 H 90 O2 Del Method O2 Flow Rate FiO2 05/22/23 11:30 BiPAP 30 01/21/24 10:53 BiPAP 05/22/23 10:50 BiPAP 05/22/23 10:40 BiPAP 05/22/23 10:31 BiPAP 30 05/22/23 10:30 BiPAP 05/22/23 10:20 BiPAP 05/22/23 10:10 BiPAP 05/22/23 10:08 30 05/22/23 10:00 BiPAP 05/22/23 09:58 BiPAP 05/22/23 09:58 BiPAP 05/22/23 09:50 BiPAP 05/22/23 09:40 BiPAP 05/22/23 09:40 05/22/23 09:39 BiPAP 05/22/23 09:34 Nasal Cannula 4 05/22/23 09:34 Nasal Cannula 4 PG Care Time/CCT Total # of Minutes Spent Total Time Spent with Patient: Total time spent is greater than 50% in coordination of care (as documented) at patient's floor/unit and/or counseling patient: Coding Level of Care Code 80327 INT INP/OBS CARE 3/75MIN Diagnoses Acute and chronic respiratory failure with hypercapnia J96.22 Hyperkalemia E87.5 HFrEF (heart failure with reduced ejection fraction) I50.20 Chronic kidney disease, stage III (moderate) N18.3 COPD (chronic obstructive pulmonary disease) J44.9 Anxiety with depression F41.8 Morbid obesity E66.01 UTI (urinary tract infection) N39.0 Diabetes E11.9
[2023-05-22 12:08] LABS: Appearance Urine Slightly Cloudy (Clear); Bilirubin Urine 1+ (Negative); Blood Urine 3+ (Negative); Color Urine Yellow; Glucose Urine UA Negative (Negative); Ketones Urine Negative (Negative); Leukocyte Esterase Urine 1+ (Negative); Nitrite Urine Negative (Negative); Protein Urine 3+ (Negative); Specific Gravity Urine >= 1.030 (1.000-1.030); Urobilinogen Urine Negative (Negative); pH Urine 5.5 (4.5-7.5)
[2023-05-22] MEDS ORDERED: STAT IV/IM STA ×2 (12:19→17:52)
[2023-05-22 12:24] LABS: Epithelial Cell Urine >30 /lpf (0-5); WBC Urine >30 /hpf (0-5)
[2023-05-22 12:25] LABS: Bacteria Urine 1+ (Negative)
[2023-05-22] MEDS ORDERED: CALCIUM GLUCONATE 10% 1,000 MG in SODIUM CHLOR 0.9% MINI-B 50 ML IV ONE ×2 (12:30→19:00)
[2023-05-22 12:50] LABS: BUN Creatinine Ratio 32.7 (10-20); Calcium 9.1 mg/dl (8.6-10.3); Est GFR (African American) 61.7 ml/min; Est GFR (Non-African American) 53.3 ml/min; Potassium 5.5 mmol/L (3.5-5.1)
[2023-05-22] MEDS ORDERED: GLUCAGON FOR INJ 1 MG VIAL SQ PRN (12:51)
[2023-05-22] MEDS ORDERED: DEXTROSE 50% 50 ML SYRINGE IV PRN (12:51)
[2023-05-22] MEDS ORDERED: GLUCOSE 10 TAB/TUBE PO PRN (12:51)
[2023-05-22] MEDS ORDERED: GLUCOSE 40% GEL 15 GM TUBE PO PRN (12:51)
[2023-05-22] MEDS ORDERED: CARBOHYDRATES FOR HYPOGLYCEMIA PO PRN (12:51)
[2023-05-22 13:01] LABS: Troponin I High Sensitivity 128.2 pg/ml (0-14)
[2023-05-22] MEDS ORDERED: FUROSEMIDE 40 MG/4 ML VIAL IV ONE ×2 (13:35→23:35)
[2023-05-22] MEDS ORDERED: LORazepam 0.5 MG TAB PO PRN (13:42)
[2023-05-22] MEDS ORDERED: SOD PHOSPHATE/SOD BIPHOSPHATE ENEMA 132 ML BTL PR PRN (13:42)
[2023-05-22] MEDS ORDERED: ALBUT/IPRATROP 3MG/0.5MG NEB 3 ML VIAL INH PRN ×2 (13:42)
[2023-05-22] MEDS ORDERED: bisacodyL 10 MG SUPP PR PRN (13:42)
[2023-05-22] MEDS ORDERED: ACETAMINOPHEN 500 MG TAB PO PRN (13:42)
[2023-05-22] MEDS ORDERED: guaiFENesin 600 MG TABCR PO SCH (13:45)
[2023-05-22] MEDS ORDERED: LORazepam 0.5 MG in SYRINGE 0.25 ML IV PRN (14:04)
[2023-05-22 14:29] LABS: HCO3 VBG 33 mmol/L; Oxygen Saturation VBG < 60.0 %; PCO2 VBG 89 mmHg (38-50); PO2 VBG 35 mmHg; pH VBG 7.18 (7.36-7.41)
[2023-05-22] MEDS ORDERED: LORazepam 1 MG/1 ML SYR ED Inj Use ONE (14:41)
[2023-05-22 14:54] LABS: Calcium 9.4 mg/dl (8.6-10.3); Creatinine Clr Calc Pharmacy 70.8 ml/min; Est GFR (African American) 64.8 ml/min; Est GFR (Non-African American) 55.9 ml/min; Potassium 5.9 mmol/L (3.5-5.1)
[2023-05-22] MEDS ORDERED: OPTIRAY 320 125ml IV ONE (16:10)
--- NOTE | 2023-05-22 16:20 | XCELERA ---
[id number]\[id number]
[2023-05-22 16:47] LABS: D Dimer 690 ug/L FEU (0-500)
[2023-05-22] MEDS: INSULIN ASPART PER UNIT CHARGE SC SCH ×2 (16:50→21:12)
[2023-05-22] MEDS ORDERED: FUROSEMIDE 40 MG/4 ML VIAL IV SCH (17:00)
--- NOTE | 2023-05-22 17:13 | CT Scan Report ---
CT angio chest PE protocol CLINICAL HISTORY: PE TECHNIQUE: Multidetector row helical CT of the chest was performed with angiographic protocol. Garcia l and sagittal reformations were obtained. Coronal and sagittal MIPS were obtained from the axial chelo a set and were submitted for review. Automated dose lowering techniques and/or adjustment according to patient size were utilized for this exam. CT DOSE: 1228.56 mGy.cm Comparison: Comparison is made to CT chest 04/16/2018 FINDINGS: Lungs and pleura: Atelectasis versus scarring is seen in the dependent portions of the lungs. Mild br onchial wall thickening. Calcified granulomata are seen. Heart and pericardium: Heart size is normal. No pericardial effusion. Vessels: The pulmonary trunk is enlarged measuring 42 mm. Mediastinum and bruce: Scattered partially calcified lymph nodes are seen. Chest wall and lower neck: Unremarkable. Abdomen: Unremarkable. Bones: Degenerative changes in the thoracic spine. IMPRESSION: 1. No evidence of pulmonary embolus. 2. Pulmonary hypertension. 3. Bronchial wall thickening may represent infectious or inflammatory airways disease. ACT 112: Negative or not required by law. Electronically signed by: Isaac Early M.D. 05/22/2023 5:11 PM
[2023-05-22] MEDS: ENOXAPARIN INJ 40 MG/0.4 ML SYR SQ SCH (17:19)
[2023-05-22] MEDS ORDERED: VANCOMYCIN CONSULT ACTIVE PRN (18:14)
[2023-05-22] MEDS ORDERED: methylPREDNISolone 125 MG/2 ML VIAL IV STA (18:14)
[2023-05-22] MEDS ORDERED: VANCOMYCIN HCL 2,750 MG in SODIUM CHLORIDE 0.9% 500 ML IV ONE (18:14)
[2023-05-22] MEDS ORDERED: INSULIN HUMAN REGULAR PER UNIT 5 UNITS in SYRINGE 4.95 ML IV STA (18:44)
[2023-05-22] MEDS ORDERED: DEXTROSE 50% 50 ML SYRINGE IV STA (18:45)
[2023-05-22] MEDS ORDERED: methylPREDNISolone 125 MG in SYRINGE 0 ML IV STA (18:52)
[2023-05-22] MEDS ORDERED: FORMOTEROL 20 MCG/2 ML VIAL NEB ONE (18:56)
[2023-05-22] MEDS ORDERED: BUDESONIDE 0.5 MG/2 ML VIAL (PULMICORT) NEB ONE (18:57)
[2023-05-22] MEDS ORDERED: ALBUT/IPRATROP 3MG/0.5MG NEB 3 ML VIAL INH SCH (19:00)
[2023-05-22] MEDS ORDERED: FORMOTEROL 20 MCG/2 ML VIAL ONE (19:04)
[2023-05-22] MEDS: BUDESONIDE 0.5 MG/2 ML VIAL (PULMICORT) NEB SCH (19:17)
[2023-05-22] MEDS: FORMOTEROL 20 MCG/2 ML VIAL NEB SCH (19:17)
[2023-05-22 19:32] LABS: iSTAT Arterial Blood Gas HCO3 32 meg/L (19-24); iSTAT Arterial Blood Gas pCO2 67 mmHg (35-46); iSTAT Arterial Blood Gas pH 7.29 (7.35-7.45); iSTAT Arterial Blood Gas pO2 94 mmHg (80-95); iSTAT Carbon Dioxide 34 mmol/L (24-31); iSTAT Hematocrit 46 % (37-47); iSTAT Hemoglobin 15.6 g/dl (12.0-16.0); iSTAT Potassium 4.8 mmol/L (3.3-5.0); iSTAT Sodium 137 mmol/L (135-144)
[2023-05-22] MEDS: MEROPENEM 500 MG in SYRINGE 0 ML IV SCH (19:51)
[2023-05-22] MEDS: DOXYCYCLINE HYCLATE 100 MG in DEXTROSE 5% MINI-B 100 ML IV SCH (19:58)
--- NOTE | 2023-05-22 20:19 | Critical Care Consultation ---
Date of Consultation May 22, 2023 Assessment & Plan (1) Acute respiratory failure with hypoxia and hypercapnia: (2) Hyperkalemia: (3) HFrEF (heart failure with reduced ejection fraction): (4) COPD (chronic obstructive pulmonary disease): (5) Acute and chronic respiratory failure with hypercapnia: (6) Morbid obesity: (7) Chronic kidney disease, stage III (moderate): Plan Reason Critically Ill: 78 morbidly obese female with underlying COPD, Obesity hypoventilation syndrome, HFrEF admitted to hospital with hypercarbic and hypoxic respiratory failure following Influenza A infection now with acute exacerbation of COPD with likely bronchitis, Acute Heart Failure Exacerbation, UTI and organ dysfunction. Admitted to ICU for hypercarbic/hypoxic respiratory failure. Neuro - Encephalopathy, Anxiety/Depression CAM ICU: [place] - Encephalopathy is mild and consistent with hypercarbic somnolence- easily arousable and is able to weakly participate in verbal conversation - no focal neuorological deficits noted - Hold home oral anxiety agents while on BiPAP to prevent further resp depression Cardiac - HFrEF, Acute HF exacerbation, Elevate HsCTNI, Presence of Pacemaker - Elevated BNP Elevated HscTNI with no reported RWMA on ECHO - Continue with Diuresing overnight as component of corpulmonale is very likely - Hold oral antihypertensives until hemodynamics proven stable - Trend HsCTNI- ECG is with paced atrial rhythm- ECHO as above without RWMA but noted with "slightly worse LV function- at this time likely type II demand mismatch - Pacemaker is dual chamber- initial settings in as AAIR with mode switch to DDDR - Low rate 60; High Rate 130- no recent interrogation or data found Respiratory - Acute on Chronic hypercarbic and hypoxic respiratory failure, COPD, Bronchitis, - Continue with BiPAP increase to 18/5 and increase back up rate to 18-20- Will attempt to keep VT 500-650 consistently- - Solumederol 125mg IV now- then 40-60 daily - Pulmicort Respules 0.5 now and then BID - Formoterol now and BID - Albuterol and Atrovent nebs scheduled QID for now can increase frequency if needed - BiOFIRE negative as well as no opacities noted on CT scan, no pericardial or pleural effusions - ABG in 1 hour and PRN GI - GERD - Continue PPI RENAL/LYTES - CKDIII, Acute on Chronic Respiratory Acidosis, Hyperkalemia - Avoid further nephrotoxic medications as able and if needed minimze exposure duration - Slight improvement in PH and CO2- continue supportive care- follow HCO3 with diuresing - consider Diamox if needed - Hyperkalemia on arrival with K - 5.9- treated with lasix and insulin in EMD- this should continue to improve with improvment in acidosis and diuresing. - Chronic Rodriguez, acute on chronic UTI - Urine suspicious for infection - continue with abx coverage until culture results- previous culture in 2022 with E.COLI and Proteus - Rodriguez was exchanged in the [facility] END[facility] - DMII insulin dependant - ICU hyper/hypoglycemic protocol HEME - No acute needs at this time - Leukocytosis see ID section ID - UTI, MRSA carrier, yeast to skin folds - Leukocytosis, NLR 8:1, PCT 0.15- Urine with >30 WBC and >30 epis with 1+ bacteria- likely chronic- but with her fraility at this time continue with antibiotic coverage - wean down - Clean and dry skin folds BID and place miconazole powder in folds- keep dry LINES/IV ACCESS - PIV, Rodriguez Continue use of these lines - Consider arterial line if frequent ABGs needed or more frequent labs needed DVT PROPHYLAXIS - SCDS, Lovenox DISPO: ICU until hypercarbia and respiratory failure stabilized and not worsening I have personally spent 60 minutes of critical care time in the direct management of this patient. This is a life/limb threatening event. This includes time spent evaluating patient, direct bedside care, chart review, placing orders, interpretation of diagnostic studies, discussion with consultants, patient, and family members, as well as other required patient management activities. This time is exclusive of all separately billable procedures, and teaching time and separate from and in addition to any other critical care service time. Thank you for allowing us to participate in the care of this patient. Please refer to my attending physician's documentation for any further recommendations. History of Present Illness Reason for Consultation: Hypercarbic Respiratory failure Requesting Physician: Benedicto Bui MD Attending Physician: Benedicto Bui MD History of Present Illness 78 YOF with medical history of: Obesity hypoventilation syndrome, COPD, HFrEF, CKD III, Anxiety, Super Morbid Obesity, chronic indwelling Rodriguez, DMII, Hypothyroidism, GERD. Patient was admitted earlier today through the [facility] by the medicine team for hypercarbic and hypoxic respiratory failure as well as acute on chronic heart failure. She was recently ill with Influenza A on 05/11/23. Per her Daughter in Law that is with her, she has been feeling ill and tired since 05/19/23 and had an increase in cough, fatigue, and pallor since then. In the EMD the patient was noted with PH 7.24, PaCO2 67, PaO2 94 and HCo3 32. She was placed on BiPAP given and nebulizers. She had a CTA of the chest completed that was negative for opacities, pulmonary embolism, or effusions. She is also with elevated BNP and HsCTNI- with ECHO performed which revealed "slightly worse" LV function than previous ECHO performed (11/20). Lab reveiw also reveals hyperkalemia and PARMINDER on CKD. She was given a dose of diuretics and insulin for her hyperkalemia and heart failure as well as antibiotics and admitted. Last ABG from 1400 was with PH of 7.18 and Co2 of 89. I was asked to see the patient at 1830 [address] [facility] medicine Dr. Bui. Patient was evaluated in her room on PCU 450- she is on BiPAP 15/5 with 30% Fio2, tired appearing not using accessory muscles, warm and diaphoretic. ABG was repeated with minimal improvement from 1400 but back to her admitting baseline. The patient will be given inhaled corticosteroid neb and LABA neb now as well as systemic steroids 125mg Solumederol and transferred to ICU for frequent monitoring and adjustment of her BiPAP. She is DNR and DNI and she confirms this. Continue supportive care at this time continue with diuresing with likely right sided failure. BiPAP settings will be adjusted for targeted VT as well as increasing backup RR. CODE: DNR/DNI Allergies Allergy/AdvReac Type Severity Reaction Status Date / Time chocolate flavor Allergy Intermediate Headache Verified 02/07/23 10:45 erythromycin base Allergy Intermediate CONFUSION, Verified 02/07/23 10:45 HEADACHE nitrofurantoin Allergy Intermediate 15 Verified 02/07/23 10:45 different symptoms Home Medications Medication Instructions Recorded Confirmed Type lancets 30 gauge (LoganMemouch Delgage #25 ea 11/24/18 06/24/22 History Lancets) fluticasone fur. 200 mcg-umeclid 1 inh inhalation QAM #60 ea 04/06/21 05/22/23 Rx 62.5 mcg-vilant 25 mcg inhalat.powder (Trelegy Ellipta) venlafaxine 75 mg capsule,extended 225 mg (3 x 75 mg) PO QAM #90 caps 04/06/21 05/22/23 Rx release 24 hr pen needle, diabetic 31 gauge x #100 ea 06/11/21 06/24/22 Rx 5/16" (Comfort EZ Pen [place]) atorvastatin 10 mg tablet 10 mg PO 3XWK #36 tabs 09/29/21 05/22/23 Rx omeprazole 20 mg capsule,delayed 20 mg PO QAM #90 caps 10/21/21 05/22/23 Rx release potassium chloride 10 mEq 10 meq PO DAILY #10 tabs 04/26/22 05/22/23 Rx tablet,extended release(part/cryst) acetaminophen 500 mg tablet 1,000 mg PO Q8H PRN Pain 02/07/23 05/22/23 History (Tylenol Extra Strength) levothyroxine 50 mcg tablet 50 mcg PO DAILY 02/07/23 05/22/23 History Milk of Magnesia 30 ml PO DAILY 05/22/23 05/22/23 History benzonatate 200 mg capsule 200 mg PO TID 05/22/23 05/22/23 History bisacodyl 10 mg rectal suppository 10 mg LA DAILY PRN Constipation 05/22/23 05/22/23 History (Dulcolax (bisacodyl)) fluticasone propionate 50 2 spray intranasal QAM 05/22/23 05/22/23 History mcg/actuation nasal spray,suspension guaifenesin 600 mg tablet, 600 mg PO Q12H 05/22/23 05/22/23 History extended release 12 hr (Mucinex) insulin glargine 100 unit/mL 35 unit subcut BID 05/22/23 05/22/23 History subcutaneous solution (Lantus U-100 Insulin) insulin lispro 100 unit/mL 1 sliding scale dose subcut 05/22/23 05/22/23 History subcutaneous solution (Humalog USEASDIRECTD U-100 Insulin) ipratropium 0.5 mg-albuterol 3 mg 3 ml inhalation Q2H PRN 05/22/23 05/22/23 History (2.5 mg base)/3 mL nebulization SOB/wheezing soln ipratropium 0.5 mg-albuterol 3 mg 3 ml inhalation QID 05/22/23 05/22/23 History (2.5 mg base)/3 mL nebulization soln ipratropium bromide 17 2 puff inhalation Q8H PRN 05/22/23 05/22/23 History mcg/actuation HFA aerosol inhaler Shortness Of Breath (Atrovent HFA) lorazepam 0.5 mg tablet 0.5 mg PO TID 05/22/23 05/22/23 History menthol 0.44 %-zinc oxide 20.6 % 1 applic topical UD 05/22/23 05/22/23 History topical ointment (Calmoseptine) menthol 4 % topical gel (Biofreeze 1 applic topical Q8H PRN Pain 05/22/23 05/22/23 History (menthol)) mineral oil-isopropyl myristat 1 applic topical BID 05/22/23 05/22/23 History lotion prednisone 10 mg tablet 10 mg PO DIRECTED 05/22/23 05/22/23 History prednisone 20 mg tablet 20 mg PO UD 05/22/23 05/22/23 History sodium phosphates 19 gram-7 118 ml LA DAILY PRN Constipation 05/22/23 05/22/23 History gram/118 mL enema (Fleet Enema) Patient History Medical History Anxiety with depression Hyperlipidemia Cheilitis Panniculitis Candidal intertrigo Chronic respiratory failure with hypoxia, on home O2 therapy Renal colic Proctitis History of renal stent Pacemaker Pyelonephritis Nephrolithiasis 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) Syncope and collapse (06/03/13) Rectal abscess Vertigo Surgical History History of biopsy of temporal artery History of colonoscopy (~06/2010) History of dilation and curettage History of neurologic surgery rhizotomy History of appendectomy History of total abdominal hysterectomy Reports KERRI-BSO S/P knee replacement S/P cholecystectomy Family History Family/Other Hypertension Diabetes Cancer Adopted Heart disease Grandmother Diabetes Heart disease Grandfather Heart disease Aunt Cancer Uncle Cancer Other No pertinent family history in first degree relatives Social History Smoking Status: Unknown if ever smoked Do You Dip or Chew Tobacco: No; Hx Alcohol Use: No Hx Substance Use: No Preferred Language: Vietnamese Communication Ability: Effective Jack Setter Required: No Beliefs That Will Affect Care: None marital status: / Current Living Situation: Group Home Current Living Situation Comment: pt has room at [facility] independent living pt to be moving within the month Feels Safe at Home: Yes Assistive Devices: Oxygen - at Night and Walker Review of Systems Review of Systems: unable to be performed secondary to fatigue and inability to participate through full system review Physical Exam Physical Exam: PHYSICAL EXAM: General: Arousable but tired appearing, sweaty appearing Head: Normocephalic, atraumatic ENT: PERRLA, EOMI, mucous membranes dry Neuro: AAO x 2, speech clear and appropriate, strength intact bilaterally 3/5, sensation intact and equal all extremities Chest: equal rise and fall of the chest, no accessory muscle use, inspiratory and expiratory wheeze noted, scattered rhonchi through out bilaterally Cardiac: Regular rate and rhythm, telemetry reviewed- NSR, skin warm dry, cap refill <3 seconds, peripheral pulses +2 no JVD, no murmur, +2-3 edema bilateral lower legs to knees, venous discoloration to lower extremities bilaterally GI: NABS x 4 quadrants, soft, nontender to palpation, no rebound, guarding or tenderness : Rodriguez to gravity draining light yellow urine Skin: venous discoloration to lower legs, psoriatic rash to bilateral shins, excoriation to groin folds and under breasts fungal appearing Results & Data Results & Data Vital Signs (Past 12 Hours) Vital Signs Temp Pulse Pulse Resp BP BP Pulse Ox 05/22/23 19:11 68 25 H 96 05/22/23 19:10 68 18 96 05/22/23 18:44 36.5 C 62 24 178/79 H 97 05/22/23 17:23 69 23 177/91 H 98 05/22/23 17:00 88 22 94 05/22/23 15:15 69 28 H 188/97 H 98 05/22/23 13:36 69 05/22/23 11:30 77 24 96 05/22/23 10:53 76 27 H 164/90 H 96 05/22/23 10:50 75 26 H 95 05/22/23 10:40 75 29 H 96 05/22/23 10:31 78 27 H 95 05/22/23 10:30 76 27 H 99 05/22/23 10:20 77 26 H 98 05/22/23 10:10 79 27 H 100 05/22/23 10:08 86 27 H 95 05/22/23 10:00 82 29 H 96 05/22/23 09:58 05/22/23 09:58 84 24 191/117 H 96 05/22/23 09:50 89 26 H 93 05/22/23 09:40 91 H 29 H 99 05/22/23 09:40 92 H 05/22/23 09:39 92 H 29 H 98 05/22/23 09:34 90 05/22/23 09:34 36.6 C 85 32 H 191/117 H 90 O2 Del Method O2 Flow Rate FiO2 05/22/23 19:11 30 05/22/23 19:10 BiPAP 30 05/22/23 18:44 BiPAP 05/22/23 17:23 BiPAP 05/22/23 17:00 30 05/22/23 15:15 BiPAP 05/22/23 13:36 05/22/23 11:30 BiPAP 30 05/22/23 10:53 BiPAP 05/22/23 10:50 BiPAP 05/22/23 10:40 BiPAP 05/22/23 10:31 BiPAP 30 05/22/23 10:30 BiPAP 05/22/23 10:20 BiPAP 05/22/23 10:10 BiPAP 05/22/23 10:08 30 05/22/23 10:00 BiPAP 05/22/23 09:58 BiPAP 05/22/23 09:58 BiPAP 05/22/23 09:50 BiPAP 05/22/23 09:40 BiPAP 05/22/23 09:40 05/22/23 09:39 BiPAP 05/22/23 09:34 Nasal Cannula 4 05/22/23 09:34 Nasal Cannula 4 Laboratory Results Abnormal lab results 05/22/23 05/22/23 05/22/23 Range/Units 09:42 11:24 11:55 WBC 18.24 H (4.8-10.8) K/ul RBC 5.48 H (4.20-5.40) M/uL POC Hgb 16.3 H (12.0-16.0) g/dl Hct 49.5 H (37.0-47.0) % POC Hct 48 H (37-47) % MCHC 31.9 L (32.0-36.0) g/dL Neut # (Auto) 15.29 H (1.40-6.50) K/uL [place] # (Auto) 0.79 H (0.11-0.59) K/uL D-Dimer (0-500) ug/L FEU POC pH 7.24 L (7.35-7.45) POC pCO2 71 H (35-46) mmHg POC pO2 63 L (80-95) mmHg POC HCO3 30 H (19-24) charan/L POC Total CO2 32 H (24-31) mmol/L POC Base Excess 3.0 H (-9-1.8) charan/L POC ABG O2 Sat 86.0 L (90-95) % VBG pH (7.36-7.41) VBG pCO2 (38-50) mmHg Sodium 134 L (136-145) mmol/L POC Potassium 5.9 H (3.3-5.0) mmol/L Potassium 6.1 H* (3.5-5.1) mmol/L BUN 31 H (6-23) mg/dl BUN/Creatinine Ratio 32.3 H (10-20) Glucose 178 H (70-99(Fasting)) mg/dl POC Glucose (70-99) mg/dl Alkaline Phosphatase 117 H (34-104) U/L Troponin I High Sens 61.6 H* (0-14) pg/ml B-Natriuretic Peptide 416 H (0-100) pg/ml Total Protein 8.6 H (6.0-8.3) gm/dl Urine Protein 3+ H (Negative) Urine Blood 3+ H (Negative) Urine Bilirubin 1+ H (Negative) Ur Leukocyte Esterase 1+ H (Negative) Urine RBC 10-30 H (0-4) /hpf Urine WBC >30 H (0-5) /hpf Ur Epithelial Cells >30 H (0-5) /lpf Urine Bacteria 1+ H (Negative) Nasal Screen MRSA (PCR) (Negative) 05/22/23 05/22/23 05/22/23 Range/Units 11:58 14:20 15:37 WBC (4.8-10.8) K/ul RBC (4.20-5.40) M/uL POC Hgb (12.0-16.0) g/dl Hct (37.0-47.0) % POC Hct (37-47) % MCHC (32.0-36.0) g/dL Neut # (Auto) (1.40-6.50) K/uL [place] # (Auto) (0.11-0.59) K/uL D-Dimer (0-500) ug/L FEU POC pH (7.35-7.45) POC pCO2 (35-46) mmHg POC pO2 (80-95) mmHg POC HCO3 (19-24) charan/L POC Total CO2 (24-31) mmol/L POC Base Excess (-9-1.8) charan/L POC ABG O2 Sat (90-95) % VBG pH 7.18 L (7.36-7.41) VBG pCO2 89 H (38-50) mmHg Sodium 135 L 135 L (136-145) mmol/L POC Potassium (3.3-5.0) mmol/L Potassium 5.5 H 5.9 H (3.5-5.1) mmol/L BUN 33 H 33 H (6-23) mg/dl BUN/Creatinine Ratio 32.7 H 34.0 H (10-20) Glucose 157 H 146 H (70-99(Fasting)) mg/dl POC Glucose 128 H (70-99) mg/dl Alkaline Phosphatase (34-104) U/L Troponin I High Sens 128.2 H* D (0-14) pg/ml B-Natriuretic Peptide (0-100) pg/ml Total Protein (6.0-8.3) gm/dl Urine Protein (Negative) Urine Blood (Negative) Urine Bilirubin (Negative) Ur Leukocyte Esterase (Negative) Urine RBC (0-4) /hpf Urine WBC (0-5) /hpf Ur Epithelial Cells (0-5) /lpf Urine Bacteria (Negative) Nasal Screen MRSA (PCR) Positive A (Negative) 05/22/23 05/22/23 05/22/23 Range/Units 15:48 16:42 19:14 WBC (4.8-10.8) K/ul RBC (4.20-5.40) M/uL POC Hgb (12.0-16.0) g/dl Hct (37.0-47.0) % POC Hct (37-47) % MCHC (32.0-36.0) g/dL Neut # (Auto) (1.40-6.50) K/uL [place] # (Auto) (0.11-0.59) K/uL D-Dimer 690 H* (0-500) ug/L FEU POC pH 7.29 L (7.35-7.45) POC pCO2 67 H (35-46) mmHg POC pO2 (80-95) mmHg POC HCO3 32 H (19-24) charan/L POC Total CO2 34 H (24-31) mmol/L POC Base Excess 5.0 H (-9-1.8) charan/L POC ABG O2 Sat 96.0 H (90-95) % VBG pH (7.36-7.41) VBG pCO2 (38-50) mmHg Sodium (136-145) mmol/L POC Potassium (3.3-5.0) mmol/L Potassium (3.5-5.1) mmol/L BUN (6-23) mg/dl BUN/Creatinine Ratio (10-20) Glucose (70-99(Fasting)) mg/dl POC Glucose 126 H (70-99) mg/dl Alkaline Phosphatase (34-104) U/L Troponin I High Sens (0-14) pg/ml B-Natriuretic Peptide (0-100) pg/ml Total Protein (6.0-8.3) gm/dl Urine Protein (Negative) Urine Blood (Negative) Urine Bilirubin (Negative) Ur Leukocyte Esterase (Negative) Urine RBC (0-4) /hpf Urine WBC (0-5) /hpf Ur Epithelial Cells (0-5) /lpf Urine Bacteria (Negative) Nasal Screen MRSA (PCR) (Negative) 05/22/23 Range/Units 19:48 WBC (4.8-10.8) K/ul RBC (4.20-5.40) M/uL POC Hgb (12.0-16.0) g/dl Hct (37.0-47.0) % POC Hct (37-47) % MCHC (32.0-36.0) g/dL Neut # (Auto) (1.40-6.50) K/uL [place] # (Auto) (0.11-0.59) K/uL D-Dimer (0-500) ug/L FEU POC pH (7.35-7.45) POC pCO2 (35-46) mmHg POC pO2 (80-95) mmHg POC HCO3 (19-24) charan/L POC Total CO2 (24-31) mmol/L POC Base Excess (-9-1.8) chaarn/L POC ABG O2 Sat (90-95) % VBG pH (7.36-7.41) VBG pCO2 (38-50) mmHg Sodium (136-145) mmol/L POC Potassium (3.3-5.0) mmol/L Potassium (3.5-5.1) mmol/L BUN (6-23) mg/dl BUN/Creatinine Ratio (10-20) Glucose (70-99(Fasting)) mg/dl POC Glucose 138 H (70-99) mg/dl Alkaline Phosphatase (34-104) U/L Troponin I High Sens (0-14) pg/ml B-Natriuretic Peptide (0-100) pg/ml Total Protein (6.0-8.3) gm/dl Urine Protein (Negative) Urine Blood (Negative) Urine Bilirubin (Negative) Ur Leukocyte Esterase (Negative) Urine RBC (0-4) /hpf Urine WBC (0-5) /hpf Ur Epithelial Cells (0-5) /lpf Urine Bacteria (Negative) Nasal Screen MRSA (PCR) (Negative) Diagnostic Findings Chest X-Ray 05/22/23 09:34 XR chest 1V portable CLINICAL HISTORY: Sepsis. COMPARISON STUDY: Chest CT April 16, 2018. Chest radiograph April 17, 2022. FINDINGS: Patient is rotated. No pneumothorax or pleural effusion is present. Dual-lead left subclavian pacer remains in place. Cardiomegaly is unchanged. There is no evidence for pulmonary edema. There is no consolidation to suggest pneumonia. IMPRESSION: No acute cardiopulmonary findings. Stable cardiomegaly. ACT 112: Negative or not required by law. Electronically signed by: Dutch Chavira M.D. 05/22/2023 10:22 AM Chest CTA 05/22/23 12:36 CT angio chest PE protocol CLINICAL HISTORY: PE TECHNIQUE: Multidetector row helical CT of the chest was performed with angiographic protocol. Coronal and sagittal reformations were obtained. Coronal and sagittal MIPS were obtained from the axial data set and were submitted for review. Automated dose lowering techniques and/or adjustment according to patient size were utilized for this exam. CT DOSE: 1228.56 mGy.cm Comparison: Comparison is made to CT chest 04/16/2018 FINDINGS: Lungs and pleura: Atelectasis versus scarring is seen in the dependent portions of the lungs. Mild bronchial wall thickening. Calcified granulomata are seen. Heart and pericardium: Heart size is normal. No pericardial effusion. Vessels: The pulmonary trunk is enlarged measuring 42 mm. Mediastinum and bruce: Scattered partially calcified lymph nodes are seen. Chest wall and lower neck: Unremarkable. Abdomen: Unremarkable. Bones: Degenerative changes in the thoracic spine. IMPRESSION: 1. No evidence of pulmonary embolus. 2. Pulmonary hypertension. 3. Bronchial wall thickening may represent infectious or inflammatory airways disease. ACT 112: Negative or not required by law. Electronically signed by: Isaac Early M.D. 05/22/2023 5:11 PM Medications Administered Enoxaparin Sodium (Enoxaparin Inj 40 Mg/0.4 Ml Syr) 40 mg SQ Q12H [facility] Stop: 06/21/23 16:44 Last Admin: 05/22/23 17:19 Dose: 40 mg Documented By: REYNA Meropenem 500 mg/ Syringe 10 mls @ 2 mls/min IV Q8H [facility]; Protocol Stop: 05/24/23 19:59 Last Admin: 05/22/23 19:51 Dose: 2 mls/min Documented By: LAYO Insulin Aspart (Insulin Aspart Per Unit Charge) 0 units SC ACHS [facility] Stop: 06/21/23 16:29 Last Admin: 05/22/23 16:50 Dose: Not Given Documented By: REYNA Discontinued Medications Albuterol (Albut/Ipratrop 3mg/0.5mg Neb 3 Ml Vial) 3 ml NEB NOW STA; Protocol Stop: 05/22/23 10:00 Last Admin: 05/22/23 10:31 Dose: 3 ml Documented By: DONNA Albuterol (Albut/Ipratrop 3mg/0.5mg Neb 3 Ml Vial) 3 ml NEB NOW STA; Protocol Stop: 05/22/23 11:09 Last Admin: 05/22/23 11:29 Dose: 3 ml Documented By: DONNA Budesonide (Budesonide 0.5 Mg/2 Ml Vial (Pulmicort)) 0.5 mg NEB ONE ONE Stop: 05/22/23 18:58 Last Admin: 05/22/23 19:08 Dose: 0.5 mg Documented By: JODIE Dextrose (Dextrose 50% 50 Ml Syringe) 50 ml IV NOW STA Stop: 05/22/23 18:46 Last Admin: 05/22/23 19:55 Dose: 50 ml Documented By: LAYO Formoterol Fumarate (Formoterol 20 Mcg/2 Ml Vial) 20 mcg NEB ONE ONE Stop: 05/22/23 18:57 Last Admin: 05/22/23 19:08 Dose: 20 mcg Documented By: JODIE Furosemide (Furosemide 40 Mg/4 Ml Vial) 40 mg IV ONE ONE Stop: 05/22/23 13:36 Last Admin: 05/22/23 13:48 Dose: 40 mg Documented By: TAMIKO Furosemide (Furosemide 40 Mg/4 Ml Vial) 40 mg IV BID17 [facility] Stop: 06/21/23 16:59 Last Admin: 05/22/23 17:19 Dose: 40 mg Documented By: REYNA Guaifenesin (Guaifenesin 600 Mg Tabcr) 600 mg PO Q12H [facility] Stop: 06/21/23 13:44 Last Admin: 05/22/23 16:39 Dose: Not Given Documented By: RASHAUN Sodium Chloride (Nss) 1,000 mls @ 125 mls/hr IV .Q8H [facility] Stop: 06/21/23 09:44 Last Infusion: 05/22/23 13:55 Dose: Infused Documented By: Admin: 05/22/23 11:01 Dose: 125 mls/hr Documented By: TAMIKO Sodium Chloride (Nss) 500 mls @ 999 mls/hr IV .Q31M ONE Stop: 05/22/23 12:28 Last Infusion: 05/22/23 13:55 Dose: Infused Documented By: Admin: 05/22/23 12:48 Dose: 999 mls/hr Documented By: TAMIKO Calcium Gluconate 1,000 mg/ (Sodium Chloride) 60 mls @ 240 mls/hr IV 1230 ONE Stop: 05/22/23 12:44 Last Infusion: 05/22/23 15:07 Dose: Infused Documented By: Admin: 05/22/23 13:48 Dose: 240 mls/hr Documented By: TAMIKO Lorazepam 0.5 mg/ Syringe 0.5 mls @ 2 mls/min IV TID PRN PRN Reason: anxiety while NPO Stop: 06/21/23 14:03 Last Admin: 05/22/23 14:46 Dose: 2 mls/min Documented By: LISA Insulin Human Regular 5 units/ (Syringe) 5 mls @ 3 mls/sec IV ONE STA Stop: 05/22/23 18:45 Last Admin: 05/22/23 19:56 Dose: 3 mls/sec Documented By: LAYO Co-signed By: MARIO Methylprednisolone 125 mg/ (Syringe) 2 mls @ 1.5 mls/min IV NOW STA Stop: 05/22/23 18:53 Last Admin: 05/22/23 19:53 Dose: 1.5 mls/min Documented By: LAYO Insulin Human Regular (Novolin-R Insulin Per Unit Charge) 4 units IV NOW STA Stop: 05/22/23 11:09 Last Admin: 05/22/23 11:43 Dose: 4 units Documented By: LISA Co-signed By: TAMIKO Ioversol (Optiray 320 125ml) 118 ml IV ONCE ONE Stop: 05/22/23 16:11 Last Admin: 05/22/23 16:10 Dose: 118 ml Documented By: RAMIRO Lorazepam (Lorazepam 1 Mg/1 Ml Syr Ed Inj Use) Confirm Administered Dose 1 mg .ROUTE .STK-MED ONE Stop: 05/22/23 14:42 Last Admin: 05/22/23 14:47 Dose: Not Given Documented By: LISA ECG Additional Comments: Atrial-sensed ventricular-paced rhythm Abnormal ECG When compared with ECG of 22-MAY-2023 09:39, (unconfirmed) Vent. rate has decreased BY 22 BPM Coding Level of Care Code 27731 CRITICAL CARE 1ST 30-74M Diagnoses Acute respiratory failure with hypoxia and hypercapnia J96.01; J96.02 Hyperkalemia E87.5 HFrEF (heart failure with reduced ejection fraction) I50.20 COPD (chronic obstructive pulmonary disease) J44.9 Acute and chronic respiratory failure with hypercapnia J96.22 Morbid obesity E66.01 Chronic kidney disease, stage III (moderate) N18.3
[2023-05-22 20:24] LABS: Calcium 9.2 mg/dl (8.6-10.3); Potassium 5.1 mmol/L (3.5-5.1)
[2023-05-22 20:29] LABS: BUN Creatinine Ratio 35.5 (10-20); Creatinine Clr Calc Pharmacy 71.1 ml/min; Est GFR (African American) 68.2 ml/min; Est GFR (Non-African American) 58.9 ml/min
[2023-05-22 21:00] LABS: iSTAT Allen Test Pass; iSTAT Art Bld Gas pCO2 Correct 62 mmHg (35-46); iSTAT Art Bld Gas pH Corrected 7.309 (7.35-7.45); iSTAT Arterial Blood Gas HCO3 31 meg/L (19-24); iSTAT Arterial Blood Gas pCO2 62 mmHg (35-46); iSTAT Arterial Blood Gas pH 7.31 (7.35-7.45); iSTAT Arterial Blood Gas pO2 96 mmHg (80-95); iSTAT Arterial Blood Gas pO2 C 96; iSTAT Carbon Dioxide 33 mmol/L (24-31); iSTAT FiO2 30 %; iSTAT Hematocrit 47 % (37-47); iSTAT Potassium 4.9 mmol/L (3.3-5.0); iSTAT Site L Radial; iSTAT Sodium 136 mmol/L (135-144)
[2023-05-22] MEDS ORDERED: ICU Protocol for HYPERglycemia SCH (21:00)
[2023-05-22] MEDS: MICONAZOLE NITRATE POWDER 85 GM EXT SCH (21:07)
[2023-05-22] MEDS: LANTUS PER UNIT CHARGE SQ SCH (21:12)
[2023-05-23 00:01] LABS: Base Excess VBG 6.1 mEq/L; HCO3 VBG 34 mmol/L; Oxygen Saturation VBG 62.4 %; PCO2 VBG 63 mmHg (38-50); PO2 VBG 35 mmHg; pH VBG 7.34 (7.36-7.41)
[2023-05-23] MEDS: ALBUT/IPRATROP 3MG/0.5MG NEB 3 ML VIAL INH SCH ×4 (00:07→19:48)
[2023-05-23 03:16] LABS: Appearance Urine Cloudy (Clear); Bacteria Urine Automated Negative (Negative); Bilirubin Urine Negative (Negative); Blood Urine 1+ (Negative); Color Urine Yellow; Epithelial Cell Urine Auto >30 /lpf (0-5); Glucose Urine UA Negative (Negative); Ketones Urine Negative (Negative); Leukocyte Esterase Urine 2+ (Negative); Nitrite Urine Negative (Negative); Protein Urine 1+ (Negative); Specific Gravity Urine 1.014 (1.000-1.030); Urobilinogen Urine Negative (Negative); WBC Urine Automated >30 /hpf (0-5)
[2023-05-23] MEDS: MEROPENEM 500 MG in SYRINGE 0 ML IV SCH (04:16)
[2023-05-23 04:39] LABS: iSTAT Allen Test Pass; iSTAT Art Bld Gas pCO2 Correct 48 mmHg (35-46); iSTAT Art Bld Gas pH Corrected 7.406 (7.35-7.45); iSTAT Arterial Blood Gas HCO3 30 meg/L (19-24); iSTAT Arterial Blood Gas pCO2 47 mmHg (35-46); iSTAT Arterial Blood Gas pH 7.41 (7.35-7.45); iSTAT Arterial Blood Gas pO2 135 mmHg (80-95); iSTAT Arterial Blood Gas pO2 C 137; iSTAT Carbon Dioxide 31 mmol/L (24-31); iSTAT FiO2 40 %; iSTAT Hematocrit 47 % (37-47); iSTAT Potassium 4.8 mmol/L (3.3-5.0); iSTAT Site L Radial; iSTAT Sodium 135 mmol/L (135-144)
[2023-05-23 04:50] LABS: Troponin I High Sensitivity 353.7 pg/ml (0-14)
[2023-05-23 05:01] LABS: Albumin Globulin Ratio 0.9 (0.9-2); Albumin Level 3.9 gm/dl (3.4-5.0); BUN Creatinine Ratio 34.9 (10-20); Bilirubin,Total 0.5 mg/dl (0.2-1.0); Creatinine Clr Calc Pharmacy 62.3 ml/min; Est GFR (African American) 58.2 ml/min; Est GFR (Non-African American) 50.3 ml/min; Globulin 4.3 gm/dl (2.5-4.0); Total Protein 8.2 gm/dl (6.0-8.3)
[2023-05-23] MEDS: ENOXAPARIN INJ 40 MG/0.4 ML SYR SQ SCH ×2 (05:41→16:51)
[2023-05-23] MEDS: MAGNESIUM SULFATE / D5W 1 GM/100 ML BAG IV SCH ×2 (06:03→08:10)
[2023-05-23] MEDS: LEVOTHYROXINE SODIUM 50 MCG TABLET PO SCH (06:04)
[2023-05-23] MEDS: BUDESONIDE 0.5 MG/2 ML VIAL (PULMICORT) NEB SCH ×2 (07:05→19:47)
[2023-05-23] MEDS: FORMOTEROL 20 MCG/2 ML VIAL NEB SCH ×2 (07:05→19:47)
--- NOTE | 2023-05-23 07:21 | Hospitalist Progress Note ---
Date of Service May 23, 2023 Assessment & Plan (1) Acute and chronic respiratory failure with hypercapnia: Plan: Acute hypoxic, hypercapnic respiratory failure. copd exacerbation with bronchitis Patient chronic 1-1.5 L nasal cannula ABG on admission with severe respiratory acidosis BiPAP rescue, transition and downgrade from icu status Bio fire negative CTA ordered to R/oh PE; no pe seen, pulmonary htn, bronchial wall thickening Treating COPD exacerbation with iv steroids, antibiotics and nebulized medications Hyperkalemia process secondary to acidosis, patiromer given (2) HFrEF (heart failure with reduced ejection fraction): Plan: Last EF 04/2022 with EF 45%, global hypokinesis, RVSP 38, technically challenging study due to body habitus Body weight up approx 10 kg from previous, Lasix given with robust response Troponin elevated secondary to demand ischemia (3) Chronic kidney disease, stage III (moderate): Plan: Creatinine stable (4) UTI (urinary tract infection): Plan: Chronic indwelling Rodriguez, exchanged while in the ER. Ua abnormal, History of both MRSA and ESBL E. coli. Meropenem and adjunct MRSA coverage with Doxy (5) Diabetes: Plan: uncontrolled pending A1c now resume po intake and resume insulin treatment Basal bolus insulin (6) Anxiety with depression: Plan: Home lorazepam continued for benzo dependence and to prevent withdrawal, monitor closely 2/2 sedation and risk of respiratory suppression. While NPO/on BiPAP this has been temporarily switched to IV (7) Morbid obesity: Plan: BMI 54, contributes to Respiratory failure, likely ANJALI Plan DVT prophylaxis: Lovenox, CODE STATUS: DNR/DNI Admission and Anticipated Discharge Date Admission Date: May 22, 2023 Subjective pt is much more awake, did not like tight fitting mask for bipap but will retry tonight understands importance of this modality cough with yellow to clear phlegm, on antibiotics for treatment of bronchitis associated with COPD Physical Exam Physical Exam: pt is awake and conversant, appears fatigued lung exam is moving better air, less rhonchi, diminished at the bases cardiac exam is regular Results & Data Results & Data Vital Signs (Past 12 Hours) Vital Signs Temp Pulse Pulse Resp BP BP Pulse Ox 05/23/23 06:00 97.9 F 80 23 177/84 H 95 05/23/23 05:00 78 16 166/91 H 92 05/23/23 04:38 76 16 92 05/23/23 04:00 99.1 F 73 19 157/86 H 93 05/23/23 03:00 77 17 128/76 94 05/23/23 02:00 77 19 120/74 95 05/23/23 01:00 74 05/23/23 01:00 98.2 F 77 18 118/75 95 05/23/23 00:20 77 17 90 05/23/23 00:00 98.2 F 72 21 159/85 H 90 05/22/23 23:00 98.1 F 77 15 149/100 H 95 05/22/23 22:30 05/22/23 22:00 97.9 F 69 24 183/85 H 96 05/22/23 21:03 70 22 96 05/22/23 21:00 98.1 F 70 20 186/90 H 96 05/22/23 20:00 98.2 F 68 21 152/96 H 95 05/22/23 19:43 67 05/22/23 19:35 98.2 F 72 20 177/89 H 97 05/22/23 19:30 98.2 F 69 24 177/89 H 95 O2 Del Method FiO2 05/23/23 06:00 05/23/23 05:00 05/23/23 04:38 30 05/23/23 04:00 05/23/23 03:00 CPAP 05/23/23 02:00 05/23/23 01:00 05/23/23 01:00 05/23/23 00:20 40 05/23/23 00:00 05/22/23 23:00 05/22/23 22:30 BiPAP 30 05/22/23 22:00 05/22/23 21:03 30 05/22/23 21:00 05/22/23 20:00 05/22/23 19:43 05/22/23 19:35 05/22/23 19:30 BiPAP Laboratory Results reviewed cbc revieved chemistry PG Care Time/CCT Total # of Minutes Spent Total Time Spent with Patient: Total time spent is greater than 50% in coordination of care (as documented) at patient's floor/unit and/or counseling patient: Coding Level of Care Code 63667 SUB INP/OBS CARE 3/50MIN Diagnoses Acute and chronic respiratory failure with hypercapnia J96.22 HFrEF (heart failure with reduced ejection fraction) I50.20 Chronic kidney disease, stage III (moderate) N18.3 UTI (urinary tract infection) N39.0 Diabetes E11.9 Anxiety with depression F41.8 Morbid obesity E66.01
[2023-05-23] MEDS: VENLAFAXINE HCL XR 75 MG CAPXR PO SCH (08:05)
[2023-05-23] MEDS: DOXYCYCLINE HYCLATE 100 MG in DEXTROSE 5% MINI-B 100 ML IV SCH ×2 (08:10→20:02)
[2023-05-23] MEDS: INSULIN ASPART PER UNIT CHARGE SC SCH ×4 (08:11→20:23)
[2023-05-23] MEDS: MICONAZOLE NITRATE POWDER 85 GM EXT SCH ×2 (08:11→20:25)
[2023-05-23] MEDS: LANTUS PER UNIT CHARGE SQ SCH ×2 (08:11→20:23)
--- NOTE | 2023-05-23 08:30 | Critical Care Progress Note ---
Date of Service May 23, 2023 Assessment & Plan (1) Acute respiratory failure with hypoxia and hypercapnia: (2) Hyperkalemia: (3) HFrEF (heart failure with reduced ejection fraction): (4) COPD (chronic obstructive pulmonary disease): (5) Chronic kidney disease, stage III (moderate): (6) Depression: (7) GERD (gastroesophageal reflux disease): (8) HTN (hypertension): Plan Reason Critically Ill: 78 morbidly obese female with underlying COPD, Obesity hypoventilation syndrome, HFrEF admitted to hospital with hypercarbic and hypoxic respiratory failure following Influenza A infection now with acute exacerbation of COPD with likely bronchitis, Acute Heart Failure Exacerbation, UTI and organ dysfunction. Admitted to ICU for hypercarbic/hypoxic respiratory failure. Neuro - Encephalopathy, Anxiety/Depression CAM ICU: [facility] --Metabolic encephalopathy Likely secondary to hypercapnia Responded well to BiPAP - Hold home oral anxiety agents while on BiPAP to prevent further resp depression Cardiac - HFrEF, Acute HF exacerbation, Elevate HsCTNI, Presence of Pacemaker - Elevated BNP Elevated HscTNI with no reported RWMA on ECHO - Continue with Diuresing overnight as component of corpulmonale is very likely --Elevated troponin Type II AR Continue to trend - Pacemaker is dual chamber- initial settings in as AAIR with mode switch to DDDR - Low rate 60; High Rate 130- no recent interrogation or data found Respiratory - Acute on Chronic hypercarbic and hypoxic respiratory failure, COPD, Bronchitis --Acute on chronic hypercapnic hypoxic respiratory failure Multifactorial COPD as well as ANJALI/OHS and cor pulmonale Continue with BiPAP support, continue with Solu-Medrol along with inhaled bronchodilators GI - GERD - Continue PPI RENAL/LYTES - CKDIII, Acute on Chronic Respiratory Acidosis, Hyperkalemia --S/p hyperkalemia Continue to monitor -- CKD Monitor BUNs/creatinine Avoid nephrotoxic medication - Chronic Rodriguez, acute on chronic UTI UA positive for leukocyte esterase, negative for bacteria History of ESBL E. coli in July 2022 Meropenem changed to ertapenem, if no culture discontinue in 48 hours - Rodriguez was exchanged in the [facility] - DMII insulin dependant - ICU hyper/hypoglycemic protocol HEME - No acute needs at this time - Leukocytosis see ID section ID - UTI, MRSA carrier, yeast to skin folds Procalcitonin 0.[address] chest does show minimal changes in the left lower lobe. --Prophylaxis VTE: Lovenox GI: None Lines: Peripheral Diet: Cardiac Plan: In/out: -2066, urine output 4050 Change meropenem to ertapenem. If there is no gross on the urine culture in 48 hours okay to DC ertapenem Continue with doxycycline for atypical coverage. I do think patient is going to benefit from AVAPS machine at home Due to chronic respiratory failure consequent to COPD, patient now requires a noninvasive home ventilator. Bilevel therapy with and without a rate would be ineffective as patient requires a volume targeted mode. Ventilation is required to decrease work of breathing and improve pulmonary status. Interruption of ventilator support would lead to decline of health status. NIMV settings should be AVAPS-AE; Breath rate: auto; Inspiratory time:auto; Sigh: off; Tidal Volume: 350-450, PS min: 4-10 PS max: 12-20; EPAP min: 6-10; EPAP max: 10-16; AVAPS rate: 14 during sleep and as needed Case was discussed with case management as well. Patient blood pressure is on the higher side. Will start her on amlodipine 5 mg on a daily basis. Will try to avoid SHERRI or ARB given the hyperkalemia Patient hemodynamically stable to be downgrade to medical floor Please note the above document was generated using voice recognition software. It may contain grammatical, syntax or spelling errors.Any formal questions or concerns about the content, text or information contained within the body of this dictation should be directly addressed to the provider for clarification. Admission and Anticipated Discharge Date Admission Date: May 22, 2023 Subjective Patient seen and examined at bedside. No acute distress, no adverse events overnight Patient did use BiPAP. Patient's [id number] was in the room at the time of examination Patient was saturating 95 to 96% 3 days nasal cannula but I went down to 1 L. Denies any headache, no nausea, no vomiting Has been bringing up clear phlegm. Has been afebrile. Review of Systems 2 Review of Systems: All systems reviewed & are unremarkable except as noted in Subjective Physical Exam 2 Physical Exam: Constitutional: No acute distress HEENT: EOMI, PERRLA, malar rash Respiratory system: Decreased air entry bilaterally, no wheeze, no rhonchi, positive crackles bilateral lower lobes CVS: S1-S2 positive, no murmurs or gallops Abdomen: Soft, nontender, nondistended, positive bowel sounds x4, obese Extremities: +2 pulses bilaterally radialis/ dorsalis pedis, no cyanosis, +1 pitting edema bilateral lower extremity Neuro: Awake alert oriented x3 Psych: Normal mood and affect G/U: Chronic indwelling Rodriguez Skin: no rashes, warm and dry Lymphatic: no cervical or axillary lymphadenopathy Results & Data Results & Data Vital Signs (Past 12 Hours) Vital Signs Temp Pulse Pulse Resp BP Pulse Ox O2 Del Method 05/23/23 07:24 83 20 94 Oxymask 05/23/23 07:00 152/92 H 05/23/23 07:00 80 25 H 95 05/23/23 06:00 36.6 C 80 23 177/84 H 95 05/23/23 05:00 78 16 166/91 H 92 05/23/23 04:38 76 16 92 05/23/23 04:00 37.3 C 73 19 157/86 H 93 05/23/23 03:00 77 17 128/76 94 CPAP 05/23/23 02:00 77 19 120/74 95 05/23/23 01:00 74 05/23/23 01:00 36.8 C 77 18 118/75 95 05/23/23 00:20 77 17 90 05/23/23 00:00 36.8 C 72 21 159/85 H 90 05/22/23 23:00 36.7 C 77 15 149/100 H 95 05/22/23 22:30 BiPAP 05/22/23 22:00 36.6 C 69 24 183/85 H 96 05/22/23 21:03 70 22 96 05/22/23 21:00 36.7 C 70 20 186/90 H 96 O2 Flow Rate FiO2 05/23/23 07:24 4 05/23/23 07:00 05/23/23 07:00 05/23/23 06:00 05/23/23 05:00 05/23/23 04:38 30 05/23/23 04:00 05/23/23 03:00 05/23/23 02:00 05/23/23 01:00 05/23/23 01:00 05/23/23 00:20 40 05/23/23 00:00 05/22/23 23:00 05/22/23 22:30 30 05/22/23 22:00 05/22/23 21:03 30 05/22/23 21:00 Laboratory Results 05/22/23 09:42 05/23/23 03:50 Coding Level of Care Code 31215 SUB INP/OBS CARE 3/50MIN Diagnoses Acute respiratory failure with hypoxia and hypercapnia J96.01; J96.02 Hyperkalemia E87.5 HFrEF (heart failure with reduced ejection fraction) I50.20 COPD (chronic obstructive pulmonary disease) J44.9 Chronic kidney disease, stage III (moderate) N18.3 Depression F32.9 GERD (gastroesophageal reflux disease) K21.9 HTN (hypertension) I10
[2023-05-23] MEDS ORDERED: ATORVASTATIN 10 MG TAB PO SCH (09:00)
[2023-05-23] MEDS ORDERED: methylPREDNISolone 40 MG in SYRINGE 0 ML IV SCH (09:00)
[2023-05-23] MEDS ORDERED: FUROSEMIDE 40 MG/4 ML VIAL IV SCH (09:00)
[2023-05-23] MEDS ORDERED: PANTOprazole 40 MG TAB PO SCH (09:00)
[2023-05-23] MEDS ORDERED: NON-FORMULARY MEDICATION (Fluticasone-Umeclidin-Vilanter [Trelegy Ellipta] 200-62.5-25 mcg INH SCH (09:00)
[2023-05-23 09:03] LABS: Magnesium 1.6 mg/dl (1.7-2.4)
[2023-05-23 09:23] LABS: iSTAT Arterial Blood Gas HCO3 32 meg/L (19-24); iSTAT Arterial Blood Gas pCO2 91 mmHg (35-46); iSTAT Arterial Blood Gas pH 7.16 (7.35-7.45); iSTAT Arterial Blood Gas pO2 63 mmHg (80-95); iSTAT Carbon Dioxide 35 mmol/L (24-31); iSTAT Hematocrit 51 % (37-47); iSTAT Hemoglobin 17.3 g/dl (12.0-16.0); iSTAT Potassium 6.3 mmol/L (3.3-5.0); iSTAT Sodium 136 mmol/L (135-144)
[2023-05-23] MEDS ORDERED: PATIROMER CALCIUM SORBITEX 8.4 GM PACK PO SCH (12:00)
[2023-05-23] MEDS: ERTAPENEM SODIUM 1,000 MG in SYRINGE 0 ML IV SCH (12:11)
[2023-05-23] MEDS ORDERED: amLODIPine BESYLATE 5 MG TAB PO SCH (12:45)
--- NOTE | 2023-05-23 14:06 | Electrocardiogram Report ---
Test Reason : Blood Pressure : / mmHG Vent. Rate : 092 BPM Atrial Rate : 092 BPM P-R Int : 196 ms QRS Dur : 216 ms QT Int : 426 ms P-R-T Axes : 067 -77 087 degrees QTc Int : 526 ms Atrial-sensed ventricular-paced rhythm Abnormal ECG When compared with ECG of 18-APR-2022 05:04, Vent. rate has increased BY 23 BPM Confirmed by Wily Lemus ([id number]) on 05/23/2023 2:06:15 PM Referred By: [facility] Confirmed By:Johnathan Lemus
[2023-05-23] MEDS ORDERED: amLODIPine BESYLATE 5 MG TAB PO ONE (14:09)
--- NOTE | 2023-05-23 14:17 | Electrocardiogram Report ---
Test Reason : Blood Pressure : / mmHG Vent. Rate : 070 BPM Atrial Rate : 070 BPM P-R Int : 194 ms QRS Dur : 208 ms QT Int : 482 ms P-R-T Axes : 046 -80 090 degrees QTc Int : 520 ms Atrial-sensed ventricular-paced rhythm Abnormal ECG When compared with ECG of 22-MAY-2023 09:39, (unconfirmed) Vent. rate has decreased BY 22 BPM Confirmed by Wily Lemus ([id number]) on 05/23/2023 2:16:59 PM Referred By: [facility] [place] Confirmed By:Johnathan Lemus
[2023-05-24] MEDS: ALBUT/IPRATROP 3MG/0.5MG NEB 3 ML VIAL INH SCH ×4 (00:15→19:26)
[2023-05-24] MEDS: ENOXAPARIN INJ 40 MG/0.4 ML SYR SQ SCH ×2 (04:17→17:14)
[2023-05-24 04:59] LABS: Hematocrit (blood only) 45.5 % (37.0-47.0); Hemoglobin 15.1 g/dl (12.0-16.0); Mean Corpuscular Hemoglobin 28.6 pg (25.0-34.0); Mean Corpuscular Hgb Conc 33.2 g/dL (32.0-36.0); Mean Corpuscular Volume 86.2 fL (80.0-100.0); Mean Platelet Volume 10.6 fL (9.4-12.4); Platelet Count 292 K/uL (130-400); RDW Coefficient of Variation 13.4 % (11.5-14.5); RDW Standard Deviation 41.9 fL (36.4-46.3); Red Blood Count 5.28 M/uL (4.20-5.40); White Blood Count 13.18 K/ul (4.8-10.8)
[2023-05-24 05:11] LABS: BUN Creatinine Ratio 40.2 (10-20); Calcium 9.8 mg/dl (8.6-10.3); Creatinine Clr Calc Pharmacy 56.5 ml/min; Est GFR (African American) 51.7 ml/min; Est GFR (Non-African American) 44.6 ml/min; Potassium 4.3 mmol/L (3.5-5.1)
--- NOTE | 2023-05-24 07:32 | Pulmonology Progress Note ---
Date of Service May 24, 2023 Assessment & Plan (1) Acute respiratory failure with hypoxia and hypercapnia: (2) HFrEF (heart failure with reduced ejection fraction): (3) COPD (chronic obstructive pulmonary disease): Plan 78 morbidly obese female with underlying COPD, Obesity hypoventilation syndrome, HFrEF admitted to hospital with hypercarbic and hypoxic respiratory failure following Influenza A infection now with acute exacerbation of COPD with likely bronchitis, Acute Heart Failure Exacerbation, UTI and organ dysfunction. Admitted to ICU for hypercarbic/hypoxic respiratory failure. ABG 7.16/91/63 --> 7.41/47/135 --Acute on chronic hypercapnic hypoxic respiratory failure Multifactorial COPD as well as ANJALI/OHS and cor pulmonale Continue with BiPAP support, continue with Solu-Medrol along with inhaled bronchodilators --COPD with emphysema On Trelegy Ellipta at home 100 --ANJALI/OHS will benefit from BiPAP/CPAP. --Metabolic alkalosis Likely compensation for chronic respiratory acidosis Plan: Add Mucinex as well as hypertonic saline nebulized for bronchitis. Continue with nebulizers BiPAP nightly as needed shortness of breath Patient will monitor from AVAPS on discharge. Social work involved Magic swizzle for throat pain. She did not have anything Oral thrush on physical exam Case discussed with RN Please note the above document was generated using voice recognition software. It may contain grammatical, syntax or spelling errors.Any formal questions or concerns about the content, text or information contained within the body of this dictation should be directly addressed to the provider for clarification. Admission and Anticipated Discharge Date Admission Date: May 22, 2023 Subjective Patient seen and examined at bedside. No acute distress, no dizziness Patient was saturating 96% on 2 L nasal cannula. I went down to room air. Unfortunately did not use the BiPAP overnight but she is willing to use it. She has been complaining of sore throat. Likely from tongue cleaning which was vigorous. Denies any abdominal pain No nausea vomiting Fair appetite Denies any headache No hemoptysis. Review of Systems 2 Review of Systems: All systems reviewed & are unremarkable except as noted in Subjective Physical Exam 2 Physical Exam: Constitutional: No acute distress HEENT: EOMI, PERRLA, malar rash Respiratory system: Decreased air entry bilaterally, no wheeze, no rhonchi, positive crackles bilateral lower lobes CVS: S1-S2 positive, no murmurs or gallops Abdomen: Soft, nontender, nondistended, positive bowel sounds x4, obese Extremities: +2 pulses bilaterally radialis/ dorsalis pedis, no cyanosis, +1 pitting edema bilateral lower extremity Neuro: Awake alert oriented x3 Psych: Normal mood and affect G/U: Chronic indwelling Rodriguez Skin: no rashes, warm and dry Lymphatic: no cervical or axillary lymphadenopathy Results & Data Results & Data Vital Signs (Past 12 Hours) Vital Signs Temp Pulse Pulse Resp BP Pulse Ox O2 Del Method 05/24/23 04:01 63 19 142/67 H 100 05/24/23 03:18 36.6 C 65 18 146/78 H 98 Nasal Cannula 05/24/23 00:15 88 16 97 Nasal Cannula 05/24/23 00:01 142/82 H 05/24/23 00:00 67 05/23/23 22:46 Nasal Cannula 05/23/23 22:42 36.5 C 72 16 171/79 H 98 Nasal Cannula 05/23/23 22:00 36.5 C 69 22 178/92 H 96 BiPAP 05/23/23 22:00 66 22 96 05/23/23 21:00 70 22 94 05/23/23 20:00 165/96 H 05/23/23 20:00 72 16 97 05/23/23 19:49 76 18 94 Nasal Cannula 05/23/23 19:33 156/73 H 05/23/23 19:33 71 26 H 95 O2 Flow Rate FiO2 05/24/23 04:01 05/24/23 03:18 2 05/24/23 00:15 2 05/24/23 00:01 05/24/23 00:00 05/23/23 22:46 2 05/23/23 22:42 2 05/23/23 22:00 30 05/23/23 22:00 05/23/23 21:00 05/23/23 20:00 05/23/23 20:00 05/23/23 19:49 2 05/23/23 19:33 05/23/23 19:33 Laboratory Results 05/24/23 04:38 05/24/23 04:38 PG Care Time/CCT Total # of Minutes Spent Total Time Spent with Patient: Total time spent is greater than 50% in coordination of care (as documented) at patient's floor/unit and/or counseling patient: Coding Level of Care Code 69265 SUB INP/OBS CARE MIN Diagnoses Acute respiratory failure with hypoxia and hypercapnia J96.01; J96.02 HFrEF (heart failure with reduced ejection fraction) I50.20 COPD (chronic obstructive pulmonary disease) J44.9
--- NOTE | 2023-05-24 07:38 | Hospitalist Progress Note ---
Date of Service May 24, 2023 Assessment & Plan (1) Acute and chronic respiratory failure with hypercapnia: Plan: Acute hypoxic, hypercapnic respiratory failure. copd exacerbation with bronchitis Patient chronic 1-1.5 L nasal cannula ABG on admission with severe respiratory acidosis BiPAP rescue try to get home unit Bio fire negative CTA ordered to R/oh PE; no pe seen, pulmonary htn, bronchial wall thickening Treating COPD exacerbation with iv steroids transitioned to po taper , antibiotics and nebulized medications Hyperkalemia process secondary to acidosis, patiromer given resolved (2) HFrEF (heart failure with reduced ejection fraction): Plan: Last EF 04/2022 with EF 45%, global hypokinesis, RVSP 38, technically challenging study due to body habitus Body weight up approx 10 kg from previous, Lasix given with robust response, coreg stated and titrated as able Troponin elevated secondary to demand ischemia (3) Chronic kidney disease, stage III (moderate): Plan: Creatinine stable (4) UTI (urinary tract infection): Plan: Chronic indwelling Rodriguez, exchanged while in the ER. Ua abnormal, History of both MRSA and ESBL E. coli. urine culture negative downgrade abtx to Doxycycline (5) Diabetes: Plan: uncontrolled, A1c 8.7 now resume po intake and resume insulin treatment Basal bolus insulin (6) Anxiety with depression: Plan: Home lorazepam continued for benzo dependence and to prevent withdrawal (7) Morbid obesity: Plan: BMI 54, contributes to Respiratory failure, likely ANJALI Plan DVT prophylaxis: Lovenox, CODE STATUS: DNR/DNI tentative discharge one or two days Admission and Anticipated Discharge Date Admission Date: May 22, 2023 Physical Exam Physical Exam: pt is awake and conversant, appears fatigued lung exam is moving better air, less rhonchi, diminished at the bases cardiac exam is regular Results & Data Results & Data Vital Signs (Past 12 Hours) Vital Signs Temp Pulse Pulse Resp BP Pulse Ox O2 Del Method 05/24/23 04:01 63 19 142/67 H 100 05/24/23 03:18 97.9 F 65 18 146/78 H 98 Nasal Cannula 05/24/23 00:15 88 16 97 Nasal Cannula 05/24/23 00:01 142/82 H 05/24/23 00:00 67 05/23/23 22:46 Nasal Cannula 05/23/23 22:42 97.7 F 72 16 171/79 H 98 Nasal Cannula 05/23/23 22:00 97.7 F 69 22 178/92 H 96 BiPAP 05/23/23 22:00 66 22 96 05/23/23 21:00 70 22 94 05/23/23 20:00 165/96 H 05/23/23 20:00 72 16 97 05/23/23 19:49 76 18 94 Nasal Cannula O2 Flow Rate FiO2 05/24/23 04:01 05/24/23 03:18 2 05/24/23 00:15 2 05/24/23 00:01 05/24/23 00:00 05/23/23 22:46 2 05/23/23 22:42 2 05/23/23 22:00 30 05/23/23 22:00 05/23/23 21:00 05/23/23 20:00 05/23/23 20:00 05/23/23 19:49 2 PG Care Time/CCT Total # of Minutes Spent Total Time Spent with Patient: Total time spent is greater than 50% in coordination of care (as documented) at patient's floor/unit and/or counseling patient: Coding Level of Care Code 49663 SUB INP/OBS CARE 2/35MIN Diagnoses Acute and chronic respiratory failure with hypercapnia J96.22 HFrEF (heart failure with reduced ejection fraction) I50.20 Chronic kidney disease, stage III (moderate) N18.3 UTI (urinary tract infection) N39.0 Diabetes E11.9 Anxiety with depression F41.8 Morbid obesity E66.01
[2023-05-24] MEDS: FORMOTEROL 20 MCG/2 ML VIAL NEB SCH ×2 (07:47→19:25)
[2023-05-24] MEDS: BUDESONIDE 0.5 MG/2 ML VIAL (PULMICORT) NEB SCH ×2 (07:47→19:25)
[2023-05-24] MEDS: INSULIN ASPART PER UNIT CHARGE SC SCH ×4 (07:57→20:37)
[2023-05-24] MEDS: DOXYCYCLINE HYCLATE 100 MG in DEXTROSE 5% MINI-B 100 ML IV SCH ×2 (09:00→20:36)
[2023-05-24] MEDS: carvediloL 3.125 MG TAB PO SCH ×2 (09:01→17:14)
[2023-05-24] MEDS: methylPREDNISolone 40 MG in SYRINGE 0 ML IV SCH (09:01)
[2023-05-24] MEDS: VENLAFAXINE HCL XR 75 MG CAPXR PO SCH (09:01)
[2023-05-24] MEDS: MICONAZOLE NITRATE POWDER 85 GM EXT SCH ×2 (09:02→20:37)
[2023-05-24] MEDS: LANTUS PER UNIT CHARGE SQ SCH ×2 (09:04→20:37)
[2023-05-24] MEDS: FIRST - Mouthwash BLM 119 ML PO PRN (11:08)
[2023-05-24] MEDS: ERTAPENEM SODIUM 1,000 MG in SYRINGE 0 ML IV SCH (12:13)
[2023-05-24] MEDS: SODIUM CHLOR 7% 4 ML NEB NEB SCH (19:25)
[2023-05-24] MEDS: guaiFENesin 600 MG TABCR PO SCH (20:37)
[2023-05-25] MEDS: ALBUT/IPRATROP 3MG/0.5MG NEB 3 ML VIAL INH SCH ×4 (00:46→20:01)
[2023-05-25] MEDS: ENOXAPARIN INJ 40 MG/0.4 ML SYR SQ SCH ×3 (04:42→20:34)
[2023-05-25 05:37] LABS: Creatinine Clr Calc Pharmacy 64.6 ml/min; Est GFR (African American) 60.3 ml/min
--- NOTE | 2023-05-25 07:21 | Pulmonology Progress Note ---
Date of Service May 25, 2023 Assessment & Plan (1) Acute respiratory failure with hypoxia and hypercapnia: (2) HFrEF (heart failure with reduced ejection fraction): (3) COPD (chronic obstructive pulmonary disease): Plan 78 morbidly obese female with underlying COPD, Obesity hypoventilation syndrome, HFrEF admitted to hospital with hypercarbic and hypoxic respiratory failure following Influenza A infection now with acute exacerbation of COPD with likely bronchitis, Acute Heart Failure Exacerbation, UTI and organ dysfunction. Admitted to ICU for hypercarbic/hypoxic respiratory failure. ABG 7.16/91/63 --> 7.41/47/135 --Acute on chronic hypercapnic hypoxic respiratory failure Multifactorial COPD as well as ANJALI/OHS and cor pulmonale Continue with BiPAP support, continue with Solu-Medrol along with inhaled bronchodilators --COPD with emphysema On Trelegy Ellipta at home 100 --ANJALI/OHS will benefit from BiPAP/CPAP. --Metabolic alkalosis Likely compensation for chronic respiratory acidosis Plan: Continue with Mucinex as well as hypertonic saline nebulized for bronchitis. Continue with nebulizers BiPAP nightly as needed shortness of breath Patient will monitor from AVAPS on discharge. Social work involved Magic swizzle for throat pain No further recommendation from pulmonary perspective, will sign off Please call directly with any questions Please note the above document was generated using voice recognition software. It may contain grammatical, syntax or spelling errors.Any formal questions or concerns about the content, text or information contained within the body of this dictation should be directly addressed to the provider for clarification. Admission and Anticipated Discharge Date Admission Date: May 22, 2023 Subjective Patient seen and examined at bedside. No acute distress, notable since overnight She used BiPAP only for an hour overnight. Reports of using it explained Overall she says she is feeling better Still complains of some sore throat. No nausea vomiting, fair appetite Was saturating 96% on 2 L, put her on room air Review of Systems 2 Review of Systems: All systems reviewed & are unremarkable except as noted in Subjective Physical Exam 2 Physical Exam: Constitutional: No acute distress HEENT: EOMI, PERRLA, malar rash Respiratory system: Decreased air entry bilaterally, no wheeze, no rhonchi, positive crackles bilateral lower lobes CVS: S1-S2 positive, no murmurs or gallops Abdomen: Soft, nontender, nondistended, positive bowel sounds x4, obese Extremities: +2 pulses bilaterally radialis/ dorsalis pedis, no cyanosis, +1 pitting edema bilateral lower extremity Neuro: Awake alert oriented x3 Psych: Normal mood and affect G/U: Chronic indwelling Rodriguez Skin: no rashes, warm and dry Lymphatic: no cervical or axillary lymphadenopathy Results & Data Results & Data Vital Signs (Past 12 Hours) Vital Signs Temp Pulse Pulse Resp BP Pulse Ox O2 Del Method 05/25/23 03:47 36.4 C L 69 20 146/78 H 94 Nasal Cannula 05/25/23 00:46 70 18 92 Room Air 05/25/23 00:00 61 05/24/23 23:45 36.5 C 65 20 142/76 H 94 Room Air 05/24/23 21:47 62 16 98 05/24/23 20:00 Room Air 05/24/23 19:31 36.4 C L 62 22 168/74 H 98 Nebulizer 05/24/23 19:26 62 18 92 Room Air O2 Flow Rate FiO2 05/25/23 03:47 2 05/25/23 00:46 05/25/23 00:00 05/24/23 23:45 05/24/23 21:47 30 05/24/23 20:00 05/24/23 19:31 05/24/23 19:26 Laboratory Results 05/24/23 04:38 05/25/23 04:43 PG Care Time/CCT Total # of Minutes Spent Total Time Spent with Patient: Total time spent is greater than 50% in coordination of care (as documented) at patient's floor/unit and/or counseling patient: Coding Level of Care Code 23251 SUB INP/OBS CARE 2/35MIN Diagnoses Acute respiratory failure with hypoxia and hypercapnia J96.01; J96.02 HFrEF (heart failure with reduced ejection fraction) I50.20 COPD (chronic obstructive pulmonary disease) J44.9
[2023-05-25] MEDS: BUDESONIDE 0.5 MG/2 ML VIAL (PULMICORT) NEB SCH ×2 (07:24→20:01)
[2023-05-25] MEDS: FORMOTEROL 20 MCG/2 ML VIAL NEB SCH ×2 (07:24→20:01)
[2023-05-25] MEDS: SODIUM CHLOR 7% 4 ML NEB NEB SCH ×2 (07:25→20:02)
[2023-05-25] MEDS: DOXYCYCLINE HYCLATE 100 MG in DEXTROSE 5% MINI-B 100 ML IV SCH ×2 (08:50→20:09)
[2023-05-25] MEDS: MICONAZOLE NITRATE POWDER 85 GM EXT SCH ×2 (08:50→20:33)
[2023-05-25] MEDS: methylPREDNISolone 40 MG in SYRINGE 0 ML IV SCH (08:50)
[2023-05-25] MEDS: VENLAFAXINE HCL XR 75 MG CAPXR PO SCH (08:51)
[2023-05-25] MEDS: INSULIN ASPART PER UNIT CHARGE SC SCH ×4 (08:51→20:26)
[2023-05-25] MEDS: guaiFENesin 600 MG TABCR PO SCH ×2 (08:52→20:32)
[2023-05-25] MEDS: carvediloL 3.125 MG TAB PO SCH ×2 (08:52→16:41)
[2023-05-25] MEDS: LANTUS PER UNIT CHARGE SQ SCH ×2 (08:52→20:26)
[2023-05-25] MEDS: FIRST - Mouthwash BLM 119 ML PO PRN ×2 (08:54→16:00)
[2023-05-25] MEDS: busPIRone 5 MG TAB PO SCH ×2 (16:00→20:31)
[2023-05-26] MEDS: ALBUT/IPRATROP 3MG/0.5MG NEB 3 ML VIAL INH SCH ×3 (00:36→13:31)
[2023-05-26] MEDS: LEVOTHYROXINE SODIUM 50 MCG TABLET PO SCH (05:55)
[2023-05-26] MEDS: SODIUM CHLOR 7% 4 ML NEB NEB SCH (07:45)
[2023-05-26] MEDS: BUDESONIDE 0.5 MG/2 ML VIAL (PULMICORT) NEB SCH (07:45)
[2023-05-26] MEDS: FORMOTEROL 20 MCG/2 ML VIAL NEB SCH (07:45)
[2023-05-26] MEDS: DOXYCYCLINE HYCLATE 100 MG in DEXTROSE 5% MINI-B 100 ML IV SCH (08:45)
[2023-05-26] MEDS: LANTUS PER UNIT CHARGE SQ SCH (08:45)
[2023-05-26] MEDS: FIRST - Mouthwash BLM 119 ML PO PRN (08:45)
[2023-05-26] MEDS: carvediloL 3.125 MG TAB PO SCH (08:46)
[2023-05-26] MEDS: VENLAFAXINE HCL XR 75 MG CAPXR PO SCH (08:46)
[2023-05-26] MEDS: guaiFENesin 600 MG TABCR PO SCH (08:46)
[2023-05-26] MEDS: methylPREDNISolone 40 MG in SYRINGE 0 ML IV SCH (08:46)
[2023-05-26] MEDS: INSULIN ASPART PER UNIT CHARGE SC SCH ×2 (08:46→11:36)
[2023-05-26] MEDS: busPIRone 5 MG TAB PO SCH ×2 (08:46→14:31)
[2023-05-26] MEDS: MICONAZOLE NITRATE POWDER 85 GM EXT SCH (09:18)
--- NOTE | 2023-05-26 10:25 | Hospitalist Progress Note ---
Date of Service May 26, 2023 Assessment & Plan Admission and Anticipated Discharge Date Admission Date: May 22, 2023 Results & Data Results & Data Vital Signs (Past 12 Hours) Vital Signs Temp Pulse Pulse Resp BP Pulse Ox O2 Del Method 05/26/23 09:06 64 17 100 05/26/23 08:00 Room Air 05/26/23 08:00 97.9 F 65 22 173/74 H 96 Room Air 05/26/23 08:00 64 05/26/23 07:46 60 20 94 Room Air 05/26/23 03:53 97.5 F L 60 20 158/76 H 92 Nasal Cannula 05/26/23 00:36 64 18 98 Nasal Cannula 05/26/23 00:01 98.4 F 65 20 162/74 H 98 Nasal Cannula O2 Flow Rate FiO2 05/26/23 09:06 21 05/26/23 08:00 05/26/23 08:00 05/26/23 08:00 05/26/23 07:46 05/26/23 03:53 1 05/26/23 00:36 1 05/26/23 00:01 1.5 PG Care Time/CCT Total # of Minutes Spent Total Time Spent with Patient: Total time spent is greater than 50% in coordination of care (as documented) at patient's floor/unit and/or counseling patient: Coding
--- NOTE | 2023-05-26 13:56 | Pulmonology Progress Note ---
Date of Service May 26, 2023 Assessment & Plan (1) Acute respiratory failure with hypoxia and hypercapnia: (2) HFrEF (heart failure with reduced ejection fraction): (3) COPD (chronic obstructive pulmonary disease): Plan 78 morbidly obese female with underlying COPD, Obesity hypoventilation syndrome, HFrEF admitted to hospital with hypercarbic and hypoxic respiratory failure following Influenza A infection now with acute exacerbation of COPD with likely bronchitis, Acute Heart Failure Exacerbation, UTI and organ dysfunction. Admitted to ICU for hypercarbic/hypoxic respiratory failure. ABG 7.16/91/63 --> 7.41/47/135 --Acute on chronic hypercapnic hypoxic respiratory failure Multifactorial COPD as well as ANJALI/OHS and cor pulmonale Continue with BiPAP support, continue with Solu-Medrol along with inhaled bronchodilators --COPD with emphysema On Trelegy Ellipta at home 100 --ANJALI/OHS will benefit from BiPAP/CPAP. --Metabolic alkalosis Likely compensation for chronic respiratory acidosis Plan: Continue with Mucinex as well as hypertonic saline nebulized for bronchitis. Continue with nebulizers BiPAP nightly as needed shortness of breath Patient will monitor from [facility] on discharge. Social work involved Case was discussed with RN at bedside along with RT No further recommendation from pulmonary perspective, will sign off Please call directly with any questions Please note the above document was generated using voice recognition software. It may contain grammatical, syntax or spelling errors.Any formal questions or concerns about the content, text or information contained within the body of this dictation should be directly addressed to the provider for clarification. Admission and Anticipated Discharge Date Admission Date: May 22, 2023 Subjective Patient seen and examined at bedside. No acute distress, no evidence overnight. She uses a BiPAP only for 20 minutes. Importance of using the BiPAP explained, she says that she is willing to wear it with a different kind of mask. After the discussion she did wear the BiPAP for at least an hour. Will continue to help her get accustomed to the mask by making her use it more frequently Denies any abdominal pain Overall she is feeling much better Shortness of breath is improved. Fair appetite, no nausea or vomiting Physical Exam Physical Exam: Constitutional: No acute distress HEENT: EOMI, PERRLA, malar rash Respiratory system: Decreased air entry bilaterally, no wheeze, no rhonchi, positive crackles bilateral lower lobes CVS: S1-S2 positive, no murmurs or gallops Abdomen: Soft, nontender, nondistended, positive bowel sounds x4, obese Extremities: +2 pulses bilaterally radialis/ dorsalis pedis, no cyanosis, +1 pitting edema bilateral lower extremity Neuro: Awake alert oriented x3 Psych: Normal mood and affect G/U: Chronic indwelling Rodriguez Skin: no rashes, warm and dry Lymphatic: no cervical or axillary lymphadenopathy Results & Data Results & Data Vital Signs (Past 12 Hours) Vital Signs Temp Pulse Pulse Resp BP BP Pulse Ox 05/26/23 13:32 63 18 93 05/26/23 12:00 63 19 91 05/26/23 11:00 60 21 95 05/26/23 10:00 60 16 95 05/26/23 09:06 64 17 100 05/26/23 09:00 60 17 95 05/26/23 08:00 60 14 87 L 05/26/23 08:00 05/26/23 08:00 36.6 C 65 22 173/74 H 96 05/26/23 08:00 64 05/26/23 07:46 60 20 94 05/26/23 07:05 64 15 93 05/26/23 07:05 173/74 H 05/26/23 07:00 60 23 95 05/26/23 03:53 36.4 C L 60 20 158/76 H 92 O2 Del Method O2 Flow Rate FiO2 05/26/23 13:32 Room Air 05/26/23 12:00 05/26/23 11:00 05/26/23 10:00 05/26/23 09:06 21 05/26/23 09:00 05/26/23 08:00 05/26/23 08:00 Room Air 05/26/23 08:00 Room Air 05/26/23 08:00 05/26/23 07:46 Room Air 05/26/23 07:05 05/26/23 07:05 05/26/23 07:00 05/26/23 03:53 Nasal Cannula 1 PG Care Time/CCT Total # of Minutes Spent Total Time Spent with Patient: Total time spent is greater than 50% in coordination of care (as documented) at patient's floor/unit and/or counseling patient: Coding Level of Care Code 58291 SUB INP/OBS CARE 2/35MIN Diagnoses Acute respiratory failure with hypoxia and hypercapnia J96.01; J96.02 HFrEF (heart failure with reduced ejection fraction) I50.20 COPD (chronic obstructive pulmonary disease) J44.9
--- NOTE | 2023-05-26 18:25 | Discharge Summary ---
Date of Service May 26, 2023 Admission HPI Per Admitting Provider Sonya is a 78-year-old female with a past medical history of COPD, CKD 3, diabetes, depression who presents from Center care with respiratory distress and fatigue; she has been recently diagnosed with influenza A on 05/11/2023. She has increased cough, generalized fatigue aches and discomfort, and does not normally wear oxygen but was brought 4 L of nasal cannula and subsequently switched to BiPAP while in the ER. While in ER she is found to have a leukocytosis with neutrophilic predominance, creatinine at baseline but with contracted ratio of 32.3, elevated potassium of 6.1, BNP of 416, high sensitive troponin of 61.6, and normal procalcitonin. Bio fire is pending. Chest x-ray shows no acute cardiopulmonary findings, no evidence of pulmonary edema, no evidence of pneumonia. Med review per records: Atorvastatin 10 mg daily on Tuesday/Tuesday Ipratropium as needed DuoNebs as needed Humalog sliding scale 350-408 units, 4 14 5012 units, 451-516 units Lantus 35 units twice daily Synthroid 50 mcg daily Lorazepam up to 3 times daily 0.5 mg as needed for anxiety, scheduled Completing a prednisone taper 10 mg and taper to to be complete 05/23 Trelegy fluticasone/umeclidinium/vilanterol daily Venlafaxine 75 mg capsule 3 tablets by mouth in the morning [facility] daily Center care resident who was admitted 04/26/2022 following an episode of acute on chronic respiratory failure with hypercapnia and hypoxia, COPD exacerbation, and probable pneumonia with ESBL E. coli UTI. History of heart failure with EF 45% newly diagnosed at last admission with grade 1 diastolic dysfunction. Patient transferred to long-term care to [place] [facility] from [facility] previously due to concerns for care at [facility] in the past. She was transitioned from rehab to long-term care. Baseline 1.5 L nasal cannula Is maintained on Lovenox 40 mg daily for DVT prophylaxis for 2 weeks on arrival DNR/DNI. This is confirmed with patient at time of admission Per center care and triage note: Was diagnosed with influenza A 05/13/2023, and was on IM Rocephin for 1 week for suspected secondary pneumonia. At baseline she is alert and oriented x 4 able to walk with oxygen, progressively more somnolent with muscle aches, lower extremity calf pain, and has not been out of bed due to fatigue and dyspnea. Initial ABG with pH 7.1, pCO2 91. Repeat [id number] 7.2 / consistent with acute respiratory acidosis with underlying chronic metabolic alkalosis. Seen at the bedside. Sonya reports that she has had feelings of fever and chills in the last week. Generally unwell since having flu. Feels weak all over and has had pain in her calfs chronically, but which seems worse in the last week bilaterally. She is not sure if her legs are more swollen than normal. She endorses shortness of breath without chest pain. Denies inspiratory pain. She denies nausea/vomiting/diarrhea. Denies abdominal pain. Is not sure if she has urinary pain, reports that she has a indwelling Rodriguez due to baseline incontinence but has not had any change of sensation with this. Denies flank pain. Endorses COPD, reports she has been taking her medications as normal. She reports that she has had wheezing which has been worse recently. She denies sputum production/sputum change. Discussed w/ son by phone .Flu a few weeks ago with progressive respiratory problems, and increased confusion in the past few days. Son reports has usually been caused by UTIs and dehydration. Has been generally unwell and declining for the last 2 weeks since the flu. No other collateral at time of call, does confirm DNR/DNI. Principal Diagnosis Acute on chronic combined hypoxic and hypercapnic respiratory failure Discharge Exam In general she is awake and alert pleasant no distress. HEENT normocephalic atraumatic mucous membranes moist. Breathing unlabored no accessory muscle use good effort. Skin shows no rashes no pallor or icterus. Neuro without focal deficits. Discharge Data Allergies Allergy/AdvReac Type Severity Reaction Status Date / Time chocolate flavor Allergy Intermediate Headache Verified 02/07/23 10:45 erythromycin base Allergy Intermediate CONFUSION, Verified 02/07/23 10:45 HEADACHE nitrofurantoin Allergy Intermediate 15 Verified 02/07/23 10:45 different symptoms Consultations 05/22/23 11:42 ED Decision to Admit Stat 05/22/23 18:30 Consult Senior Planner Routine 05/22/23 19:43 Consult Senior Planner Routine Ordered Studies 05/22/23 12:36 CT angio chest PE protocol Stat Hospital Course (1) Acute and chronic respiratory failure with hypercapnia: Acute hypoxic, hypercapnic respiratory failure. copd exacerbation with bronchitis Patient chronic 1-1.5 L nasal cannula ABG on admission with severe respiratory acidosis Stabilized on BiPAP, [facility] Bio fire negative CTA ordered to R/oh PE; no pe seen, pulmonary htn, bronchial wall thickening Treated COPD exacerbation with iv steroids transition to po taper, antibiotics and nebulized medications Hyperkalemia process secondary to acidosis, patiromer given resolved (2) HFrEF (heart failure with reduced ejection fraction): Last EF 04/2022 with EF 45%, global hypokinesis, RVSP 38, technically challenging study due to body habitus Body weight up approx 10 kg from previous, Lasix given with robust response, coreg started Troponin elevated secondary to demand ischemia (3) Chronic kidney disease, stage III (moderate): Creatinine stable (4) UTI (urinary tract infection): Chronic indwelling Rodriguez, exchanged while in the ER. Ua abnormal, History of both MRSA and ESBL E. coli. urine culture negative (5) Diabetes: uncontrolled, A1c 8.7 Basal bolus insulin, outpt f/u (6) Anxiety with depression: Home lorazepam continued for benzo dependence and to prevent withdrawal (7) Morbid obesity: BMI 54, contributes to Respiratory failure, likely ANJALI Plan DVT prophylaxis: Lovenox, CODE STATUS: DNR/DNI stable for return to SNF Total Time Total Time Spent Total Time Spent (In Minutes): >30 Discharge Plan Discharge Items Patient Disposition: Transfer Care Home Fac Reason For Visit: [facility] Discharge Diagnosis: acute on chronic mixed (hypoxic and hypercapnic) respiratory failure Activity: Resume your previous activity Non-emergency contact: Primary Care Provider Call non-emergency contact if: you have any medication questions Follow-up/Referrals: [facility] [Primary Care Provider] - Diet: Low Sodium (2gm) Addtl Attending Provider Instructions: see medication orders/discharge summary discussed with pt critical importance of using [facility] insulin orders only to update med rec - would have her on the insulin she has been at [facility] Pending Studies at Discharge: No Stand-Alone Forms: My [facility] Skilled Items Patient informed of condition?: Yes DNR: Yes Discharge Level of Care: Skilled Communicable Disease: No Discharge Prognosis: Stable Lines: None Urinary Catheter: No Medications and DC Order Prescriptions: New buspirone 5 mg Tablet 5 mg PO TID Qty: 30 0RF insulin glargine [Lantus U-100 Insulin] 100 unit/mL Solution 35 unit subcut BID Qty: 30 0RF carvedilol 3.125 mg Tablet 3.125 mg PO BIDM Qty: 30 0RF insulin aspart U-100 [Novolog U-100 Insulin aspart] 100 unit/mL Solution 1 unit SC UD Qty: 30 0RF Continued Trelegy Ellipta 200-62.5-25 mcg blister with device 1 inh inhalation QAM Qty: 60 11RF venlafaxine 75 mg capsule,extended release 24hr 225 mg PO QAM Qty: 90 11RF Rx Instructions: TAKE 3 CAPSULES BY MOUTH ONCE DAILY (DME) pen needle, diabetic [Comfort EZ Pen [place]] 31 gauge x 5/16" needle See Rx Instructions .Route Qty: 100 5RF Rx Instructions: 3 TIMES DAILY atorvastatin 10 mg tablet 10 mg PO 3XWK Qty: 36 3RF Rx Instructions: Mon/Weds/Fri omeprazole 20 mg capsule,delayed release(DR/EC) 20 mg PO QAM Qty: 90 3RF levothyroxine 50 mcg tablet 50 mcg PO DAILY acetaminophen [Tylenol Extra Strength] 500 mg tablet 1,000 mg PO Q8H PRN (Reason: Pain) (DME) lancets [OneTouch Delica Lancets] 30 gauge misc See Dose Instructions .ROUTE .MEDSUPPLY Qty: 25 Rx Instructions: As directed potassium chloride 10 mEq Tablet,Er Particles/Crystals 10 meq PO DAILY Qty: 10 0RF prednisone 10 mg Tablet 10 mg PO DIRECTED Rx Instructions: start date 05/23/23 ipratropium-albuterol 0.5 mg-3 mg(2.5 mg base)/3 mL Solution For Nebulization 3 ml INHALATION Q2H PRN (Reason: SOB/wheezing) ipratropium-albuterol 0.5 mg-3 mg(2.5 mg base)/3 mL Solution For Nebulization 3 ml INHALATION QID benzonatate 200 mg Capsule 200 mg PO TID prednisone 20 mg Tablet 20 mg PO UD Rx Instructions: 05/21/23-05/22/23 then 10 mg prednisone starts 05/23/23 bisacodyl [Dulcolax (bisacodyl)] 10 mg Suppository 10 mg ID DAILY PRN (Reason: Constipation) Fleet Enema 19-7 gram/118 mL Enema 118 ml ID DAILY PRN (Reason: Constipation) insulin lispro [Humalog U-100 Insulin] 100 unit/mL Solution 1 sliding scale dose SUBCUT USEASDIRECTD Rx Instructions: 350-400=8U;401-450=12U;451-500=16U;501-550=18U; Recheck BS in 2h, prn fluticasone propionate 50 mcg/actuation [place],Suspension 2 spray INTRANASAL QAM Rx Instructions: administer into each nostril mineral oil-isopropyl myristat Lotion 1 applic TOPICAL BID menthol-zinc oxide [Calmoseptine] 0.44-20.6 % Ointment 1 applic TOPICAL UD Rx Instructions: apply to right buttocks every shift Biofreeze (menthol) 4 % Gel 1 applic TOPICAL Q8H PRN (Reason: Pain) Rx Instructions: neck, shoulders guaifenesin [Mucinex] 600 mg Tablet Extended Release 12hr 600 mg PO Q12H Milk of Magnesia 30 ml PO DAILY insulin glargine [Lantus U-100 Insulin] 100 unit/mL solution 35 unit subcut BID lorazepam 0.5 mg tablet 0.5 mg PO TID Rx Instructions: as needed for anxiety Atrovent HFA 17 mcg/actuation HFA aerosol inhaler 2 puff INH Q8H PRN (Reason: Shortness Of Breath) Discharge Orders: Discharge Order (Routine); Ordered 05/26/23 Ordered By: Roberto Carlos Sheth/Other Patient Handouts: Coping with Heart Failure, Heart Failure Dc, COPD Controlled Breathing Dc Admission Data Admit Date/Time: 05/22/23 16:42 Attending Provider: Roberto Carlos Box Admit Provider: Aleksey Fuentes Primary Care Provider: Celine Ayala Other Providers: Joey Salazar; Celine Ayala; Aleksey Fuentes Other Interventions: Discharge Summary Assessment (RN) Last Done: 05/26/23 15:24 Coding Level of Care Code 56956 INP/OBS DISCH >30 MIN Diagnoses Acute and chronic respiratory failure with hypercapnia J96.22 HFrEF (heart failure with reduced ejection fraction) I50.20 Chronic kidney disease, stage III (moderate) N18.3 UTI (urinary tract infection) N39.0 Diabetes E11.9 Anxiety with depression F41.8 Morbid obesity E66.01
== END 2023-05-26 15:40 | DRG 280 ==
LOC: ED 09:26 → 4W 16:42 → SUATTDRO 16:42 → 4W 18:54 → 1E 19:42

== ENCOUNTER 2024-03-11 22:55 | Inpatient (IN) ==
[2024-03-11 23:34] LABS: Basophils # (auto) 0.03 K/uL (0.00-0.20); Basophils % (auto) 0.3 %; Eosinophils # (auto) 0.04 K/uL (0.00-0.50); Eosinophils % (auto) 0.4 %; Hematocrit (blood only) 43.4 % (37.0-47.0); Hemoglobin 13.5 g/dl (12.0-16.0); Immature Granulocytes # (auto) 0.27 K/uL (0.01-0.20); Immature Granulocytes % (auto) 2.9 %; Lymphocytes # (auto) 1.38 K/uL (1.20-3.40); Mean Corpuscular Hemoglobin 29.2 pg (25.0-34.0); Mean Corpuscular Hgb Conc 31.1 g/dL (32.0-36.0); Mean Corpuscular Volume 93.7 fL (80.0-100.0); Mean Platelet Volume 10.4 fL (9.4-12.4); Monocytes # (auto) 0.86 K/uL (0.11-0.59); Monocytes % (auto) 9.4 %; Platelet Count 152 K/uL (130-400); RDW Standard Deviation 48.1 fL (36.4-46.3); Red Blood Count 4.63 M/uL (4.20-5.40); White Blood Count 9.18 K/ul (4.8-10.8)
[2024-03-12 00:01] LABS: Albumin Level 3.3 gm/dl (3.4-5.0); Bilirubin,Total 0.6 mg/dl (0.2-1.0); Calcium 8.9 mg/dl (8.6-10.3); Creatinine Clr Calc Pharmacy 61.9 ml/min; Globulin 3.2 gm/dl (2.5-4.0); Magnesium 1.7 mg/dl (1.7-2.4); Potassium 4.8 mmol/L (3.5-5.1); Total Protein 6.5 gm/dl (6.0-8.3); Troponin I High Sensitivity 54.4 pg/ml (0-14)
--- NOTE | 2024-03-12 00:08 | Emergency Department Note ---
Impression & Plan Acute UTI, Acute dehydration, Altered mental state, Acute hyperglycemia Admit to [facility] ED Provider Note NAME: PAPA KELLY AGE: 78 SEX: Female INFORMANT: EMS ED PROVIDER(S): Clari Alfaro DO CHIEF COMPLAINT: fever PLAN: Disposition: Admit to the [facility] MEDICAL DECISION MAKING: patient recently started taking prednisone and Depakote for trigeminal neuralgia and developed a fever. Patient also seemed more lethargic and staff from [facility] was concerned about a side effect from the medication. A septic protocol was performed here in the emergency department. There was significant smell accompanied the patient as if she had a UTI. Patient does have a history of Proteus in her urine. I reviewed previous cultures and susceptibilities and started the patient immediately on IV Zosyn once blood cultures and urine specimen were obtained. Patient's Rodriguez catheter was exchanged and a fresh urine was obtained for urinalysis and culture and sensitivity. The urine appeared infected. Other laboratory studies revealed no leukocytosis or anemia. Lactate and procalcitonin were normal. Chloride was low at 89. CO2 was high at 42. BUN was high at 36. Glucose was high at 243 and troponin was high at 54. On physical exam, the patient also had a wet cough. Chest x-ray, however, showed no evidence of an acute infiltrate or opacity. I believe the patient's mental status is altered secondary to her urinary tract infection. I discussed the case with the [facility]ist and they will evaluate for further inpatient care. Triage Nursing notes: reviewed and agree With them. Vital Signs: reviewed and remarkable for fever, hypertension, tachypnea Chronic Medical/Social Conditions affecting care: resides at [facility] Prior/ Outside/ External records reviewed: I reviewed the records accompanied the patient from [facility] Differential Diagnosis: sepsis, pneumonia, UTI, medication side effect Diagnostics, independently interpreted by me: ECG: paced rhythm at a rate of 86 with no ectopy or signs of ischemia. Cardiac Monitoring: Paced rhythm at a rate of 87 Imaging studies: portable chest x-ray: Significant cardiomegaly with no obvious pulmonary consolidation or opacity. HPI: 78 year old Female arrives for evaluation of Fever. patient presents to the emergency department from [facility]. She has significant foul-smelling odor and thick drainage coming from her Rodriguez catheter. Patient presents with a fever PAST MEDICAL HISTORY: See Below, PAST SURGICAL HISTORY: See Below, SOCIAL HISTORY: See Below, HOME MEDICATIONS: See list ALLERGIES: See List VITALS: See Below PHYSICAL EXAMINATION: HEENT: Head - normocephalic and atraumatic. Pupils are equal, round, and reactive to light. Extraocular eye muscles are intact, and sclera are anicteric. Nose - moist nasal mucosa without discharge. Mouth - extremely dry buccal mucosa. Oropharynx is nonerythematous and there is no tonsillar exudate or edema noted. Neck: Supple; no JVD, nuchal rigidity, cervical lymphadenopathy Heart: Heart sounds are distant secondary to body habitus. Regular rate and rhythm. There is a normal S1 and S2 with no murmurs, clicks, or gallops appreciated. Lungs: Diminished breath sounds in all lung cary Abdomen: Soft, completely nontender, nondistended, with good bowel sounds. There are no palpable pulsatile masses or hepatosplenomegaly. There is no guarding, rigidity, or rebound noted. Extremities: Lower extremity edema with scaling skin about both lower extremities. There are palpable pedal pulses. Skin: Hot and dry with good turgor and no rashes. Emergency department treatment: potline monitor, IV normal saline bolus, IV Zosyn Emergency department course: The patient was evaluated in room C-10. A complete history and physical was performed. A septic protocol was performed. An order was placed for continuous cardiac monitoring. Patient was in a paced rhythm at a rate of 87. A twelve-lead EKG was obtained. Patient's Rodriguez catheter was changed out and a urine culture was obtained. Blood cultures were obtained. The patient was bolused with IV normal saline solution as she appears dehydrated. She was given IV Zosyn after reviewing previous urine cultures. Portable chest x-ray was obtained. Patient was discussed with the [facility] Hospitalist and they will evaluate for further inpatient care. Past Med/Surg History Problem List (Updated 03/12/24 @ 15:28 by Peterson Lloyd MD) Trigeminal neuralgia Hyperglycemia due to diabetes mellitus Acute hyperglycemia (Acute) Altered mental state (Acute) Acute dehydration (Acute) Acute UTI (Acute) CMC arthritis Carpal tunnel syndrome, left Idiopathic polyneuropathy Elevated brain natriuretic peptide (BNP) level (Acute) Elevated troponin (Acute) Acute respiratory failure with hypoxia and hypercapnia Acute respiratory failure with hypoxia Hyperkalemia (Acute) Recent urinary tract infection Urinary retention with incomplete bladder emptying Mixed stress and urge urinary incontinence Dry skin dermatitis HFrEF (heart failure with reduced ejection fraction) (HFpEF) heart failure with preserved ejection fraction COPD (chronic obstructive pulmonary disease) ARF (acute renal failure) Infection due to ESBL-producing Escherichia coli Urinary incontinence Hypokalemia Pneumonia Elevated troponin Respiratory distress (Acute) CHF (congestive heart failure) (Acute) Somnolence (Acute) Leukocytosis (Acute) Elevated CO2 level (Acute) Acute and chronic respiratory failure with hypercapnia (Acute) UTI (urinary tract infection) Anxiety with depression Hyperlipidemia Subcutaneous abscess (Acute) Cellulitis of female genitalia (Acute) Pneumonia due to 2019 novel coronavirus (Acute) Acute exacerbation of chronic obstructive pulmonary disease (Acute) Infection of lip COVID-19 Eczema Shoulder pain Urinary incontinence Diabetes (Acute) 1st degree AV block (Acute) Anxiety (Acute) Atrial paroxysmal tachycardia (Acute) Generalized osteoarthrosis, unspecified site (Acute) LAFB (left anterior fascicular block) (Acute) Mild obstructive sleep apnea (Acute) Morbid obesity (Acute) Nocturnal hypoxia (Chronic) Right bundle branch block (Acute) Venous insufficiency (chronic) (peripheral) (Acute) Venous stasis (Acute) Chronic kidney disease, stage III (moderate) Depression GERD (gastroesophageal reflux disease) COPD (chronic obstructive pulmonary disease) HTN (hypertension) (Chronic) Pacemaker (Chronic) Medical History Anxiety with depression Hyperlipidemia Cheilitis Panniculitis Candidal intertrigo Chronic respiratory failure with hypoxia, on home O2 therapy Renal colic Proctitis History of renal stent Pacemaker Pyelonephritis Nephrolithiasis 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) Syncope and collapse (06/03/13) Rectal abscess Vertigo Surgical History History of biopsy of temporal artery History of colonoscopy (~06/2010) History of dilation and curettage History of neurologic surgery rhizotomy History of appendectomy History of total abdominal hysterectomy Reports KERRI-BSO S/P knee replacement S/P cholecystectomy Family History Family/Other Hypertension Diabetes Cancer Adopted Heart disease Grandmother Diabetes Heart disease Grandfather Heart disease Aunt Cancer Uncle Cancer Other No pertinent family history in first degree relatives Social History Smoking Status: Unknown if ever smoked Second Hand Exposure: Yes; Do You Dip or Chew Tobacco: No; Preferred Language: Bhutanese Communication Ability: Effective Aids Counselor Required: No Beliefs That Will Affect Care: None marital status: / Current Living Situation: Detention Current Living Situation Comment: Lives at center care Feels Safe at Home: Yes Assistive Devices: Oxygen - Continuous Assistive Devices Comment: 2 - 3 liters NC chronic Allergies Allergies Allergy/AdvReac Type Severity Reaction Status Date / Time chocolate flavor Allergy Intermediate Headache Verified 02/20/24 14:30 erythromycin base Allergy Intermediate CONFUSION, Verified 02/20/24 14:30 HEADACHE nitrofurantoin Allergy Intermediate 15 Verified 02/20/24 14:30 different symptoms Home Meds Home Medications Medication Instructions Recorded Confirmed lancets 30 gauge (OneTouch Delica #25 ea 11/24/18 02/20/24 Lancets) acetaminophen 500 mg tablet 1,000 mg PO Q8H PRN fever/pain 02/07/23 03/12/24 (Tylenol Extra Strength) levothyroxine 50 mcg tablet 50 mcg PO DAILY 02/07/23 03/12/24 bisacodyl 10 mg rectal suppository 10 mg AZ DAILY PRN Constipation 05/22/23 03/12/24 (Dulcolax (bisacodyl)) fluticasone propionate 50 2 spray intranasal QAM 05/22/23 03/12/24 mcg/actuation nasal spray,suspension guaifenesin 600 mg tablet, 600 mg PO Q12H 05/22/23 03/12/24 extended release 12 hr (Mucinex) insulin glargine 100 unit/mL 35 unit subcut AMHS 05/22/23 03/12/24 subcutaneous solution (Lantus U-100 Insulin) insulin lispro 100 unit/mL 1 sliding scale dose subcut 05/22/23 03/12/24 subcutaneous solution (Humalog USEASDIRECTD U-100 Insulin) ipratropium 0.5 mg-albuterol 3 mg 3 ml inhalation Q2H PRN 05/22/23 03/12/24 (2.5 mg base)/3 mL nebulization SOB/wheezing soln ipratropium 0.5 mg-albuterol 3 mg 3 ml inhalation QID 05/22/23 03/12/24 (2.5 mg base)/3 mL nebulization soln lorazepam 0.5 mg tablet 0.25 mg PO DAILY PRN Anxiety 05/22/23 03/12/24 menthol 4 % topical gel (Biofreeze 1 applic topical Q8H PRN Pain 05/22/23 03/12/24 (menthol)) sodium phosphates 19 gram-7 118 ml [place] DAILY PRN Constipation 05/22/23 03/12/24 gram/118 mL enema (Fleet Enema) Saccharomyces boulardii 250 mg 250 mg PO AMHS 03/12/24 03/12/24 capsule (Florastor) buspirone 15 mg tablet 15 mg PO TID 03/12/24 03/12/24 calcium carbonate 1,000 mg PO Q6 PRN Indigestion 03/12/24 03/12/24 cefuroxime axetil 500 mg tablet 500 mg PO AMHS 03/12/24 03/12/24 divalproex 250 mg tablet,delayed 250 mg PO BID 03/12/24 03/12/24 release fluticasone fur. 200 mcg-umeclid 1 inh inhalation QAM 03/12/24 03/12/24 62.5 mcg-vilant 25 mcg inhalat.powder (Trelegy Ellipta) furosemide 40 mg tablet 40 mg PO BID 03/12/24 03/12/24 gabapentin 300 mg capsule 600 mg PO TID 03/12/24 03/12/24 polyethylene glycol 3350 17 17 g PO AMHS 03/12/24 03/12/24 gram/dose oral powder (Miralax) potassium chloride 10 mEq 10 meq PO QAM 03/12/24 03/12/24 tablet,extended release(part/cryst) prednisone 5 mg tablet 5 mg PO QAM 03/12/24 03/12/24 simethicone 80 mg chewable tablet 160 mg PO AMHS 03/12/24 03/12/24 tramadol 50 mg tablet 50 mg PO Q6 PRN pain 9-10 03/12/24 03/12/24 triamcinolone acetonide 0.1 % 1 applic topical BID 03/12/24 03/12/24 topical cream venlafaxine 75 mg tablet,extended 225 mg PO QAM 03/12/24 03/12/24 release 24 hr Previous Rx's Medication Instructions Recorded pen needle, diabetic 31 gauge x #100 ea 06/11/21 5/16" (Comfort EZ Pen [place]) atorvastatin 10 mg tablet 10 mg PO 3XWK #36 tabs 09/29/21 omeprazole 20 mg capsule,delayed 20 mg PO QAM #90 caps 10/21/21 release carvedilol 3.125 mg tablet 3.125 mg PO BIDM #30 tabs 05/26/23 Results & Data (ED) Vital Signs Vital Signs - 24 hr 03/11/24 23:01 03/11/24 23:02 03/12/24 00:00 Temperature 38.7 C H Temperature Source Oral Pulse Rate 86 87 87 Respiratory Rate 38 H 30 H Blood Pressure 185/111 H 184/110 H Blood Pressure Mean 135 134 Pulse Oximetry 100 100 Oxygen Delivery Method Nasal Cannula Oxygen Flow Rate 2 Sepsis Recent Fever Within 48 Hours Yes Sepsis New/Unexplained Change in Mental Status N/A Sepsis Action Taken by Nursing No Action Required 03/12/24 01:02 Temperature Temperature Source Pulse Rate 85 Respiratory Rate 30 H Blood Pressure 163/88 H Blood Pressure Mean 113 Pulse Oximetry 100 Oxygen Delivery Method Oxygen Flow Rate Sepsis Recent Fever Within 48 Hours Sepsis New/Unexplained Change in Mental Status Sepsis Action Taken by Nursing Laboratory Data 03/11/24 23:15 03/11/24 23:15 Lab Results 03/11/24 03/12/24 03/12/24 Range/Units 23:15 00:00 00:28 WBC 9.18 (4.8-10.8) K/ul RBC 4.63 (4.20-5.40) M/uL Hgb 13.5 (12.0-16.0) g/dl Hct 43.4 (37.0-47.0) % MCV 93.7 (80.0-100.0) fL MCH 29.2 (25.0-34.0) pg MCHC 31.1 L (32.0-36.0) g/dL RDW Std Deviation 48.1 H (36.4-46.3) fL RDW Coeff of Iman 14.0 (11.5-14.5) % Plt Count 152 (130-400) K/uL MPV 10.4 (9.4-12.4) fL Immature Gran % (Auto) 2.9 % Neut % (Auto) 72.0 % Lymph % (Auto) 15.0 % [place] % (Auto) 9.4 % Eos % (Auto) 0.4 % Baso % (Auto) 0.3 % Neut # (Auto) 6.60 H (1.40-6.50) K/uL Lymph # (Auto) 1.38 (1.20-3.40) K/uL [place] # (Auto) 0.86 H (0.11-0.59) K/uL Eos # (Auto) 0.04 (0.00-0.50) K/uL Baso # (Auto) 0.03 (0.00-0.20) K/uL Immature Gran # (Auto) 0.27 H (0.01-0.20) K/uL PT Cancelled 10.8 INR Cancelled 1.0 APTT Cancelled 28 PTT Ratio Cancelled 1.0 Sodium 138 (136-145) mmol/L Potassium 4.8 (3.5-5.1) mmol/L Chloride 89 L (98-107) mmol/L Carbon Dioxide 42 H* (21-32) mmol/L Anion Gap 7 (3-11) BUN 36 H (6-23) mg/dl Creatinine 1.06 (0.6-1.2) mg/dl Est Cr Clr Drug Dosing 61.9 ml/min eGFR 53.77 BUN/Creatinine Ratio 34.0 H (10-20) Glucose 243 H (70-99(Fasting)) mg/dl Estimat Average Glucose 186 mg/dl Hemoglobin A1c 8.1 H (4.5-5.6) % Lactate 1.2 1.4 (0.4-2.0) mmol/L Calcium 8.9 (8.6-10.3) mg/dl Magnesium 1.7 (1.7-2.4) mg/dl Total Bilirubin 0.6 0.6 (0.2-1.0) mg/dl Direct Bilirubin TNP AST 16 17 (13-39) U/L ALT 15 15 (7-52) U/L Alkaline Phosphatase 70 75 (34-104) U/L Troponin I High Sens 54.4 H* 55.1 H* (0-14) pg/ml Total Protein 6.5 7.1 (6.0-8.3) gm/dl Albumin 3.3 L 3.6 (3.4-5.0) gm/dl Globulin 3.2 (2.5-4.0) gm/dl Albumin/Globulin Ratio 1.0 (0.9-2) Procalcitonin 0.27 (0-0.5) ng/ml Urine Color Urine Appearance (Clear) Urine pH (4.5-7.5) Ur Specific [place] (1.000-1.030) Urine Protein (Negative) Urine Glucose (UA) (Negative) Urine Ketones (Negative) Urine Blood (Negative) Urine Nitrite (Negative) Urine Bilirubin (Negative) Urine Urobilinogen (Negative) Ur Leukocyte Esterase (Negative) Urine WBC (Auto) (0-5) /hpf Urine RBC (Auto) (0-2) /hpf U Hyaline Cast (Auto) (0-2) /lpf U Epithel Cells (Auto) (0-2) /hpf Urine Bacteria (Auto) (None Seen) Adenovirus (PCR) (NotDetected) B. pertussis DNA (PCR) (NotDetected) B.parapertussis DNA PCR (NotDetected) C. pneumoniae DNA (PCR) (NotDetected) Coronavirus OC43 (PCR) (NotDetected) Coronavirus HKU1 (PCR) (NotDetected) Coronavirus 229E (PCR) (NotDetected) SARS-CoV-2 (PCR) (NotDetected) Coronavirus NL63 (PCR) (NotDetected) Human Metapneumovir PCR (NotDetected) Influenza Type A (PCR) (NotDetected) Influenza Type B (PCR) (NotDetected) M. pneumoniae (PCR) (NotDetected) Parainfluenza 1 (PCR) (NotDetected) Parainfluenza 2 (PCR) (NotDetected) Parainfluenza 3 (PCR) (NotDetected) Parainfluenza 4 (PCR) (NotDetected) RSV (PCR) (NotDetected) Entero/Rhino (PCR) (NotDetected) 03/12/24 Range/Units 00:47 WBC (4.8-10.8) K/ul RBC (4.20-5.40) M/uL Hgb (12.0-16.0) g/dl Hct (37.0-47.0) % MCV (80.0-100.0) fL MCH (25.0-34.0) pg MCHC (32.0-36.0) g/dL RDW Std Deviation (36.4-46.3) fL RDW Coeff of Iman (11.5-14.5) % Plt Count (130-400) K/uL MPV (9.4-12.4) fL Immature Gran % (Auto) % Neut % (Auto) % Lymph % (Auto) % [place] % (Auto) % Eos % (Auto) % Baso % (Auto) % Neut # (Auto) (1.40-6.50) K/uL Lymph # (Auto) (1.20-3.40) K/uL [place] # (Auto) (0.11-0.59) K/uL Eos # (Auto) (0.00-0.50) K/uL Baso # (Auto) (0.00-0.20) K/uL Immature Gran # (Auto) (0.01-0.20) K/uL PT INR APTT PTT Ratio Sodium (136-145) mmol/L Potassium (3.5-5.1) mmol/L Chloride (98-107) mmol/L Carbon Dioxide (21-32) mmol/L Anion Gap (3-11) BUN (6-23) mg/dl Creatinine (0.6-1.2) mg/dl Est Cr Clr Drug Dosing ml/min eGFR BUN/Creatinine Ratio (10-20) Glucose (70-99(Fasting)) mg/dl Estimat Average Glucose mg/dl Hemoglobin A1c (4.5-5.6) % Lactate (0.4-2.0) mmol/L Calcium (8.6-10.3) mg/dl Magnesium (1.7-2.4) mg/dl Total Bilirubin (0.2-1.0) mg/dl Direct Bilirubin AST (13-39) U/L ALT (7-52) U/L Alkaline Phosphatase (34-104) U/L Troponin I High Sens (0-14) pg/ml Total Protein (6.0-8.3) gm/dl Albumin (3.4-5.0) gm/dl Globulin (2.5-4.0) gm/dl Albumin/Globulin Ratio (0.9-2) Procalcitonin (0-0.5) ng/ml Urine Color Dark Yellow Urine Appearance Turbid A (Clear) Urine pH 5.5 (4.5-7.5) Ur Specific [place] 1.016 (1.000-1.030) Urine Protein 3+ H (Negative) Urine Glucose (UA) Negative (Negative) Urine Ketones Negative (Negative) Urine Blood 3+ H (Negative) Urine Nitrite Negative (Negative) Urine Bilirubin Negative (Negative) Urine Urobilinogen Negative (Negative) Ur Leukocyte Esterase 2+ H (Negative) Urine WBC (Auto) >50 H (0-5) /hpf Urine RBC (Auto) 6-10 H (0-2) /hpf U Hyaline Cast (Auto) >20 H (0-2) /lpf U Epithel Cells (Auto) >20 H (0-2) /hpf Urine Bacteria (Auto) 4+ H (None Seen) Adenovirus (PCR) Not Detected (NotDetected) B. pertussis DNA (PCR) Not Detected (NotDetected) B.parapertussis DNA PCR Not Detected (NotDetected) C. pneumoniae DNA (PCR) Not Detected (NotDetected) Coronavirus OC43 (PCR) Not Detected (NotDetected) Coronavirus HKU1 (PCR) Not Detected (NotDetected) Coronavirus 229E (PCR) Not Detected (NotDetected) SARS-CoV-2 (PCR) Not Detected (NotDetected) Coronavirus NL63 (PCR) Not Detected (NotDetected) Human Metapneumovir PCR Not Detected (NotDetected) Influenza Type A (PCR) Not Detected (NotDetected) Influenza Type B (PCR) Not Detected (NotDetected) M. pneumoniae (PCR) Not Detected (NotDetected) Parainfluenza 1 (PCR) Not Detected (NotDetected) Parainfluenza 2 (PCR) Not Detected (NotDetected) Parainfluenza 3 (PCR) Not Detected (NotDetected) Parainfluenza 4 (PCR) Not Detected (NotDetected) RSV (PCR) Not Detected (NotDetected) Entero/Rhino (PCR) Not Detected (NotDetected) Administered Medications Heparin Sodium (Porcine) (Heparin Sod 5,000 Unit/0.5 Ml Vial) 7,500 units SQ Q12 TERI Stop: 04/11/24 08:59 Last Admin: 03/12/24 09:11 Dose: 7,500 units Documented By: EDILIA Piperacillin Sod/Tazobactam Sod (Zosyn) 4.5 gm in 100 mls @ 25 mls/hr IV Q8H [facility]; Protocol Stop: 03/22/24 07:59 Last Admin: 03/12/24 15:27 Dose: 25 mls/hr Documented By: Infusion: 03/12/24 13:25 Dose: Infused Documented By: Admin: 03/12/24 09:08 Dose: 25 mls/hr Documented By: EDILIA Pantoprazole Sodium (Protonix) 40 mg in 10 mls @ 5 mls/min IV DAILY TERI Stop: 04/11/24 08:59 Last Admin: 03/12/24 09:04 Dose: 5 mls/min Documented By: EDILIA Valproic Acid 250 mg/ Dextrose 52.5 mls @ 55 mls/hr IV Q12H [facility] Stop: 04/11/24 08:59 Last Infusion: 03/12/24 10:53 Dose: Infused Documented By: Admin: 03/12/24 09:11 Dose: 55 mls/hr Documented By: EDILIA Sodium Chloride (Nss) 1,000 mls @ 80 mls/hr IV .[id number] [facility] Stop: 03/13/24 15:29 Last Admin: 03/12/24 15:38 Dose: 80 mls/hr Documented By: SOPHIA Insulin Aspart (Insulin Aspart Per Unit Charge) 0 units SC ACHS [facility] Stop: 04/11/24 07:29 Last Admin: 03/12/24 13:48 Dose: 2 units Documented By: EDILIA Co-signed By: SRL Admin: 03/12/24 09:08 Dose: 5 units Documented By: SERJIOW Co-signed By: RAMANDEEP Insulin Glargine (Lantus Per Unit Charge) 20 units SQ BID [facility] Stop: 04/11/24 08:59 Last Admin: 03/12/24 09:05 Dose: 20 units Documented By: EDILIA Co-signed By: MMN Discontinued Medications Hydrocortisone Sodium Succinate (Hydrocortisone Sod Succinate 100 Mg/2 Ml Vial) 100 mg IV NOW STA Stop: 03/12/24 01:51 Last Admin: 03/12/24 01:55 Dose: 100 mg Documented By: RICH Piperacillin Sod/Tazobactam Sod (Zosyn) 4.5 gm in 100 mls @ 200 mls/hr IV NOW ONE; Protocol Stop: 03/12/24 00:39 Last Infusion: 03/12/24 02:12 Dose: Infused Documented By: Admin: 03/12/24 01:40 Dose: 200 mls/hr Documented By: RICH Sodium Chloride (Nss) 1,000 mls @ 999 mls/hr IV .[id number] ONE Stop: 03/12/24 01:44 Last Infusion: 03/12/24 02:42 Dose: Infused Documented By: Admin: 03/12/24 01:40 Dose: 999 mls/hr Documented By: RICH Hydrocortisone Sodium (Succinate 100 mg/ Syringe) 2 mls @ 4 mls/min IV Q8H TERI Stop: 04/11/24 09:59 Last Admin: 03/12/24 09:12 Dose: 4 mls/min Documented By: EDILIA Sodium Chloride (Nss) 1,000 mls @ 80 mls/hr IV .[id number] TERI Stop: 03/12/24 16:14 Last Infusion: 03/12/24 15:16 Dose: Infused Documented By: Admin: 03/12/24 04:11 Dose: 80 mls/hr Documented By: RICH Imaging Data Radiologist's Impression: Chest X-Ray 03/11/24 23:18 Exam(s): XR CXR 1 VIEW EXAM: XR Chest, 1 View CLINICAL HISTORY: Sepsis. TECHNIQUE: Frontal view of the chest. COMPARISON: Portable chest single view 05/22/2023 FINDINGS: Lungs: The evaluation is somewhat limited by obliquity. Similar perihilar subsegmental changes noted. Similar subsegmental right infrahilar changes. No new focal airspace consolidation. Pleural space: The left costophrenic margin is clearly delineated secondary to obliquity, cardiomegaly and overlying soft tissues. The right costophrenic margin is sharp. No pneumothorax. Heart: Cardiac silhouette remains enlarged. Mediastinum: Evaluation of mediastinal contours is limited. No obvious ulceration. No tracheal deviation. Bones/joints: Unremarkable. No acute fracture. Tubes, lines and devices: Left subclavian approach dual lead pacer. IMPRESSION: Limited by obliquity and patient body habitus. Accounting for limitations, no definite focal airspace consolidation or significant alteration from the prior examination. Electronically signed by: Thomas Patrick MD 03/12/24 00:36 AM Discharge Plan Visit Data Chief Complaint: Weakness Stated Complaint: SHAKY, DIZZY, FEVER, INCREASED WEAKNESS ED Provider: Clari Alfaro Discharge Problem: Acute UTI, Acute dehydration, Altered mental state, Acute hyperglycemia Patient Disposition: Admitted As Inpatient Discharge Instructions Interventions: ED Discharge Assessment Last Done: 03/12/24 14:12
--- NOTE | 2024-03-12 00:37 | XRay Report ---
Exam(s): XR CXR 1 VIEW EXAM: XR Chest, 1 View CLINICAL HISTORY: Sepsis. TECHNIQUE: Frontal view of the chest. COMPARISON: Portable chest single view 05/22/2023 FINDINGS: Lungs: The evaluation is somewhat limited by obliquity. Similar perihilar subsegmental changes noted. Similar subsegmental right infrahilar changes. No new focal airspace consolidation. Pleural space: The left costophrenic margin is clearly delineated secondary to obliquity, cardiomegaly and overlying soft tissues. The right costophrenic margin is sharp. No pneumothorax. Heart: Cardiac silhouette remains enlarged. Mediastinum: Evaluation of mediastinal contours is limited. No obvious ulceration. No tracheal deviation. Bones/joints: Unremarkable. No acute fracture. Tubes, lines and devices: Left subclavian approach dual lead pacer. IMPRESSION: Limited by obliquity and patient body habitus. Accounting for limitations, no definite focal airspace consolidation or significant alteration from the prior examination. Electronically signed by: Thomas Patrick MD 03/12/24 00:36 AM
[2024-03-12 01:14] LABS: Alanine Aminotransferase 15 U/L (7-52); Albumin Level 3.6 gm/dl (3.4-5.0); Alkaline Phosphatase 75 U/L (34-104); Aspartate Aminotransferase 17 U/L (13-39); Bilirubin,Total 0.6 mg/dl (0.2-1.0); Total Protein 7.1 gm/dl (6.0-8.3); Troponin I High Sensitivity 55.1 pg/ml (0-14)
[2024-03-12 01:26] LABS: Partial Thromboplastin Time 28 Seconds (21-31); Prothrombin Time 10.8 Seconds (9.0-12.0)
[2024-03-12] MEDS: PIPERACILLIN/TAZOBACTAM 4.5 GM/100 ML BAG IV ONE (01:40)
[2024-03-12] MEDS: SODIUM CHLORIDE 0.9% 1,000 ML IV ONE (01:40)
[2024-03-12 01:46] LABS: Appearance Urine Turbid (Clear); Bacteria Urine Automated 4+ (None Seen); Bilirubin Urine Negative (Negative); Blood Urine 3+ (Negative); Cast Urine Automated >20 /lpf (0-2); Color Urine Dark Yellow; Epithelial Cell Urine Auto >20 /hpf (0-2); Glucose Urine UA Negative (Negative); Ketones Urine Negative (Negative); Leukocyte Esterase Urine 2+ (Negative); Nitrite Urine Negative (Negative); Protein Urine 3+ (Negative); Specific Gravity Urine 1.016 (1.000-1.030); Urobilinogen Urine Negative (Negative); WBC Urine Automated >50 /hpf (0-5); pH Urine 5.5 (4.5-7.5)
--- NOTE | 2024-03-12 01:54 | History & Physical Report ---
Date of Service March 12, 2024 Assessment & Plan (1) Altered mental state: (2) Acute dehydration: (3) Acute UTI: (4) Recent urinary tract infection: (5) Infection due to ESBL-producing Escherichia coli: (6) COPD (chronic obstructive pulmonary disease): (7) CMC arthritis: (8) Hyperglycemia due to diabetes mellitus: Plan Recurrent urinary tract infection/metabolic encephalopathy- History of infections with ESBL E. coli, Proteus mirabilis, and Pseudomonas aeruginosa Follow urine culture and sensitivity Continue Zosyn 4.5 g IV every 8 hours begun in the ED Status post 1 L normal saline bolus in the ED Continue Rodriguez catheter NSS at 80 mL/h x 1 L Elevated troponin/hypertension/CAD- The patient will be admitted to telemetry for serial cardiac enzymes, serial EKG's, cardiac rhythm monitoring Initial troponin 54.4, with follow-up 55.1, and next follow-up 54.4 Most recent echocardiogram on 09/21/2023 with ejection fraction 50-55% Likely supply/demand mismatch Hold carvedilol due to n.p.o. status Lopressor 5 mg IV every 4 hours as needed for systolic blood pressure greater than 160 Diabetes mellitus- Decreased glargine from 35 units subcu twice daily to 20 units SQ twice daily Placed on Accu-Cheks with NovoLog SSI CMC arthritis- Hold chronic prednisone Stress dose hydrocortisone 100 mg IV every 8 hours Seizure disorder- Change divalproex p.o. to valproic acid IV History of Present Illness Chief Complaint: The patient is referred to the emergency department from [facility] due to concerns regarding confusion, altered responsiveness, and fever that began after taking prednisone and Depakote for trigeminal neuralgia Primary Care Provider: [facility] The patient is a 78-year-old female with a past medical history including CMC arthritis, idiopathic polyneuropathy, urinary tract infections, stress and urge urinary incontinence, HFrEF, COPD, acute and chronic respiratory failure, anxiet y with depression, diabetes mellitus, CKD stage III, hypertension, and presence of pacemaker. She is referred to the emergency department from [facility] due to temperature responsiveness. The patient is unresponsive in the emergency department, and unable to contribute to her HPI or ROS. Information is gathered from transfer report and from the ED Allergies Allergy/AdvReac Type Severity Reaction Status Date / Time chocolate flavor Allergy Intermediate Headache Verified 02/20/24 14:30 erythromycin base Allergy Intermediate CONFUSION, Verified 02/20/24 14:30 HEADACHE nitrofurantoin Allergy Intermediate 15 Verified 02/20/24 14:30 different symptoms Home Medications Medication Instructions Recorded Confirmed Type lancets 30 gauge (OneTouch Delica #25 ea 11/24/18 02/20/24 History Lancets) pen needle, diabetic 31 gauge x #100 ea 06/11/21 02/20/24 Rx 5/16" (Comfort EZ Pen Acton) atorvastatin 10 mg tablet 10 mg PO 3XWK #36 tabs 09/29/21 03/12/24 Rx omeprazole 20 mg capsule,delayed 20 mg PO QAM #90 caps 10/21/21 03/12/24 Rx release acetaminophen 500 mg tablet 1,000 mg PO Q8H PRN fever/pain 02/07/23 03/12/24 History (Tylenol Extra Strength) levothyroxine 50 mcg tablet 50 mcg PO DAILY 02/07/23 03/12/24 History bisacodyl 10 mg rectal suppository 10 mg NM DAILY PRN Constipation 05/22/23 03/12/24 History (Dulcolax (bisacodyl)) fluticasone propionate 50 2 spray intranasal QAM 05/22/23 03/12/24 History mcg/actuation nasal spray,suspension guaifenesin 600 mg tablet, 600 mg PO Q12H 05/22/23 03/12/24 History extended release 12 hr (Mucinex) insulin glargine 100 unit/mL 35 unit subcut AMHS 05/22/23 03/12/24 History subcutaneous solution (Lantus U-100 Insulin) insulin lispro 100 unit/mL 1 sliding scale dose subcut 05/22/23 03/12/24 History subcutaneous solution (Humalog USEASDIRECTD U-100 Insulin) ipratropium 0.5 mg-albuterol 3 mg 3 ml inhalation Q2H PRN 05/22/23 03/12/24 History (2.5 mg base)/3 mL nebulization SOB/wheezing soln ipratropium 0.5 mg-albuterol 3 mg 3 ml inhalation QID 05/22/23 03/12/24 History (2.5 mg base)/3 mL nebulization soln lorazepam 0.5 mg tablet 0.25 mg PO DAILY PRN Anxiety 05/22/23 03/12/24 History menthol 4 % topical gel (Biofreeze 1 applic topical Q8H PRN Pain 05/22/23 03/12/24 History (menthol)) sodium phosphates 19 gram-7 118 ml NM DAILY PRN Constipation 05/22/23 03/12/24 History gram/118 mL enema (Fleet Enema) carvedilol 3.125 mg tablet 3.125 mg PO BIDM #30 tabs 05/26/23 03/12/24 Rx Saccharomyces boulardii 250 mg 250 mg PO AMHS 03/12/24 03/12/24 History capsule (Florastor) buspirone 15 mg tablet 15 mg PO TID 03/12/24 03/12/24 History calcium carbonate 1,000 mg PO Q6 PRN Indigestion 03/12/24 03/12/24 History cefuroxime axetil 500 mg tablet 500 mg PO AMHS 03/12/24 03/12/24 History divalproex 250 mg tablet,delayed 250 mg PO BID 03/12/24 03/12/24 History release fluticasone fur. 200 mcg-umeclid 1 inh inhalation QAM 03/12/24 03/12/24 History 62.5 mcg-vilant 25 mcg inhalat.powder (Trelegy Ellipta) furosemide 40 mg tablet 40 mg PO BID 03/12/24 03/12/24 History gabapentin 300 mg capsule 600 mg PO TID 03/12/24 03/12/24 History polyethylene glycol 3350 17 17 g PO AMHS 03/12/24 03/12/24 History gram/dose oral powder (Miralax) potassium chloride 10 mEq 10 meq PO QAM 03/12/24 03/12/24 History tablet,extended release(part/cryst) prednisone 5 mg tablet 5 mg PO QAM 03/12/24 03/12/24 History simethicone 80 mg chewable tablet 160 mg PO AMHS 03/12/24 03/12/24 History tramadol 50 mg tablet 50 mg PO Q6 PRN pain 9-10 03/12/24 03/12/24 History triamcinolone acetonide 0.1 % 1 applic topical BID 03/12/24 03/12/24 History topical cream venlafaxine 75 mg tablet,extended 225 mg PO QAM 03/12/24 03/12/24 History release 24 hr Past Med/Surg History Problem List (Updated 03/12/24 @ 03:30 by Austin Billy MD) Hyperglycemia due to diabetes mellitus Acute hyperglycemia (Acute) Altered mental state (Acute) Acute dehydration (Acute) Acute UTI (Acute) CMC arthritis Carpal tunnel syndrome, left Idiopathic polyneuropathy Elevated brain natriuretic peptide (BNP) level (Acute) Elevated troponin (Acute) Acute respiratory failure with hypoxia and hypercapnia Acute respiratory failure with hypoxia Hyperkalemia (Acute) Recent urinary tract infection Urinary retention with incomplete bladder emptying Mixed stress and urge urinary incontinence Dry skin dermatitis HFrEF (heart failure with reduced ejection fraction) (HFpEF) heart failure with preserved ejection fraction COPD (chronic obstructive pulmonary disease) ARF (acute renal failure) Infection due to ESBL-producing Escherichia coli Urinary incontinence Hypokalemia Pneumonia Elevated troponin Respiratory distress (Acute) CHF (congestive heart failure) (Acute) Somnolence (Acute) Leukocytosis (Acute) Elevated CO2 level (Acute) Acute and chronic respiratory failure with hypercapnia (Acute) UTI (urinary tract infection) Anxiety with depression Hyperlipidemia Subcutaneous abscess (Acute) Cellulitis of female genitalia (Acute) Pneumonia due to 2019 novel coronavirus (Acute) Acute exacerbation of chronic obstructive pulmonary disease (Acute) Infection of lip COVID-19 Eczema Shoulder pain Urinary incontinence Diabetes (Acute) 1st degree AV block (Acute) Anxiety (Acute) Atrial paroxysmal tachycardia (Acute) Generalized osteoarthrosis, unspecified site (Acute) LAFB (left anterior fascicular block) (Acute) Mild obstructive sleep apnea (Acute) Morbid obesity (Acute) Nocturnal hypoxia (Chronic) Right bundle branch block (Acute) Venous insufficiency (chronic) (peripheral) (Acute) Venous stasis (Acute) Chronic kidney disease, stage III (moderate) Depression GERD (gastroesophageal reflux disease) COPD (chronic obstructive pulmonary disease) HTN (hypertension) (Chronic) Pacemaker (Chronic) Medical History Anxiety with depression Hyperlipidemia Cheilitis Panniculitis Candidal intertrigo Chronic respiratory failure with hypoxia, on home O2 therapy Renal colic Proctitis History of renal stent Pacemaker Pyelonephritis Nephrolithiasis 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) Syncope and collapse (06/03/13) Rectal abscess Vertigo Surgical History History of biopsy of temporal artery History of colonoscopy (~06/2010) History of dilation and curettage History of neurologic surgery rhizotomy History of appendectomy History of total abdominal hysterectomy Reports KERRI-BSO S/P knee replacement S/P cholecystectomy Family History Family/Other Hypertension Diabetes Cancer Adopted Heart disease Grandmother Diabetes Heart disease Grandfather Heart disease Aunt Cancer Uncle Cancer Other No pertinent family history in first degree relatives Social History Smoking Status: Former smoker Second Hand Exposure: Yes; Do You Dip or Chew Tobacco: No; Hx Alcohol Use: No Hx Substance Use: No Preferred Language: Swedish Communication Ability: Effective 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 Morbidly obese, normocephalic and atraumatic, lying in bed and in no acute distress. HEENT--PERRL, EOMI, mucous membranes and oropharynx dry. Neck--supple. No JVD. No bruits. Thyroid normal, trachea midline, no adenopathy. Heart--normal S1 and S2. No murmurs, rubs or gallops. Lungs--clear bilaterally, no respiratory distress, no accessory muscle use. Abdomen--normal bowel sounds and soft. Nontender. Nondistended. Morbidly obese Extremities--No edema. Dermatologic--normal skin turgor, normal color, no abnormal lymph nodes, no rash. Neurologic--cranial nerves II through XII grossly intact. Rheumatologic--limited exam Psychiatric--lethargic. Results & Data Results & Data Vital Signs (Past 12 Hours) Vital Signs Temp Pulse Resp BP Pulse Ox O2 Del Method O2 Flow Rate 03/12/24 01:02 85 30 H 163/88 H 100 03/12/24 00:00 87 30 H 184/110 H 100 03/11/24 23:02 87 03/11/24 23:01 38.7 C H 86 38 H 185/111 H 100 Nasal Cannula 2 Laboratory Results Laboratory Results WBC 9.18 K/ul (4.8-10.8) 03/11/24 23:15 RBC 4.63 M/uL (4.20-5.40) 03/11/24 23:15 Hgb 13.5 g/dl (12.0-16.0) 03/11/24 23:15 Hct 43.4 % (37.0-47.0) 03/11/24 23:15 MCV 93.7 fL (80.0-100.0) 03/11/24 23:15 MCH 29.2 pg (25.0-34.0) 03/11/24 23:15 MCHC 31.1 g/dL (32.0-36.0) L 03/11/24 23:15 RDW Std Deviation 48.1 fL (36.4-46.3) H 03/11/24 23:15 RDW Coeff of Iman 14.0 % (11.5-14.5) 03/11/24 23:15 Plt Count 152 K/uL (130-400) 03/11/24 23:15 MPV 10.4 fL (9.4-12.4) 03/11/24 23:15 Immature Gran % (Auto) 2.9 % 03/11/24 23:15 Neut % (Auto) 72.0 % 03/11/24 23:15 Lymph % (Auto) 15.0 % 03/11/24 23:15 Garrard % (Auto) 9.4 % 03/11/24 23:15 Eos % (Auto) 0.4 % 03/11/24 23:15 Baso % (Auto) 0.3 % 03/11/24 23:15 Neut # (Auto) 6.60 K/uL (1.40-6.50) H 03/11/24 23:15 Lymph # (Auto) 1.38 K/uL (1.20-3.40) 03/11/24 23:15 Garrard # (Auto) 0.86 K/uL (0.11-0.59) H 03/11/24 23:15 Eos # (Auto) 0.04 K/uL (0.00-0.50) 03/11/24 23:15 Baso # (Auto) 0.03 K/uL (0.00-0.20) 03/11/24 23:15 Immature Gran # (Auto) 0.27 K/uL (0.01-0.20) H 03/11/24 23:15 PT 10.8 Seconds (9.0-12.0) 03/12/24 00:28 INR 1.0 (0.9-1.1) 03/12/24 00:28 APTT 28 Seconds (21-31) 03/12/24 00:28 PTT Ratio 1.0 03/12/24 00:28 Sodium 138 mmol/L (136-145) 03/11/24 23:15 Potassium 4.8 mmol/L (3.5-5.1) 03/11/24 23:15 Chloride 89 mmol/L (98-107) L 03/11/24 23:15 Carbon Dioxide 42 mmol/L (21-32) H* 03/11/24 23:15 Anion Gap 7 (3-11) 03/11/24 23:15 BUN 36 mg/dl (6-23) H 03/11/24 23:15 Creatinine 1.06 mg/dl (0.6-1.2) 03/11/24 23:15 Est Cr Clr Drug Dosing 61.9 ml/min 03/11/24 23:15 eGFR 53.77 03/11/24 23:15 BUN/Creatinine Ratio 34.0 (10-20) H 03/11/24 23:15 Glucose 243 mg/dl (70-99(Fasting)) H 03/11/24 23:15 Lactate 1.4 mmol/L (0.4-2.0) 03/12/24 00:28 Calcium 8.9 mg/dl (8.6-10.3) 03/11/24 23:15 Magnesium 1.7 mg/dl (1.7-2.4) 03/11/24 23:15 Total Bilirubin 0.6 mg/dl (0.2-1.0) 03/12/24 00:28 Direct Bilirubin TNP 03/12/24 00:28 AST 17 U/L (13-39) 03/12/24 00:28 ALT 15 U/L (7-52) 03/12/24 00:28 Alkaline Phosphatase 75 U/L (34-104) 03/12/24 00:28 Troponin I High Sens 54.4 pg/ml (0-14) H* 03/12/24 02:17 Total Protein 7.1 gm/dl (6.0-8.3) 03/12/24 00:28 Albumin 3.6 gm/dl (3.4-5.0) 03/12/24 00:28 Globulin 3.2 gm/dl (2.5-4.0) 03/11/24 23:15 Albumin/Globulin Ratio 1.0 (0.9-2) 03/11/24 23:15 Procalcitonin 0.27 ng/ml (0-0.5) 03/11/24 23:15 Urine Color Dark Yellow 03/12/24 00:47 Urine Appearance Turbid (Clear) A 03/12/24 00:47 Urine pH 5.5 (4.5-7.5) 03/12/24 00:47 Ur Specific Emerson 1.016 (1.000-1.030) 03/12/24 00:47 Urine Protein 3+ (Negative) H 03/12/24 00:47 Urine Glucose (UA) Negative (Negative) 03/12/24 00:47 Urine Ketones Negative (Negative) 03/12/24 00:47 Urine Blood 3+ (Negative) H 03/12/24 00:47 Urine Nitrite Negative (Negative) 03/12/24 00:47 Urine Bilirubin Negative (Negative) 03/12/24 00:47 Urine Urobilinogen Negative (Negative) 03/12/24 00:47 Ur Leukocyte Esterase 2+ (Negative) H 03/12/24 00:47 Urine WBC (Auto) >50 /hpf (0-5) H 03/12/24 00:47 Urine RBC (Auto) 6-10 /hpf (0-2) H 03/12/24 00:47 U Hyaline Cast (Auto) >20 /lpf (0-2) H 03/12/24 00:47 U Epithel Cells (Auto) >20 /hpf (0-2) H 03/12/24 00:47 Urine Bacteria (Auto) 4+ (None Seen) H 03/12/24 00:47 Adenovirus (PCR) Not Detected (NotDetected) 03/12/24 00:47 B. pertussis DNA (PCR) Not Detected (NotDetected) 03/12/24 00:47 B.parapertussis DNA PCR Not Detected (NotDetected) 03/12/24 00:47 C. pneumoniae DNA (PCR) Not Detected (NotDetected) 03/12/24 00:47 Coronavirus OC43 (PCR) Not Detected (NotDetected) 03/12/24 00:47 Coronavirus HKU1 (PCR) Not Detected (NotDetected) 03/12/24 00:47 Coronavirus 229E (PCR) Not Detected (NotDetected) 03/12/24 00:47 SARS-CoV-2 (PCR) Not Detected (NotDetected) 03/12/24 00:47 Coronavirus NL63 (PCR) Not Detected (NotDetected) 03/12/24 00:47 Human Metapneumovir PCR Not Detected (NotDetected) 03/12/24 00:47 Influenza Type A (PCR) Not Detected (NotDetected) 03/12/24 00:47 Influenza Type B (PCR) Not Detected (NotDetected) 03/12/24 00:47 M. pneumoniae (PCR) Not Detected (NotDetected) 03/12/24 00:47 Parainfluenza 1 (PCR) Not Detected (NotDetected) 03/12/24 00:47 Parainfluenza 2 (PCR) Not Detected (NotDetected) 03/12/24 00:47 Parainfluenza 3 (PCR) Not Detected (NotDetected) 03/12/24 00:47 Parainfluenza 4 (PCR) Not Detected (NotDetected) 03/12/24 00:47 RSV (PCR) Not Detected (NotDetected) 03/12/24 00:47 Entero/Rhino (PCR) Not Detected (NotDetected) 03/12/24 00:47 Impressions Chest X-Ray 03/11/24 23:18 Exam(s): XR CXR 1 VIEW EXAM: XR Chest, 1 View CLINICAL HISTORY: Sepsis. TECHNIQUE: Frontal view of the chest. COMPARISON: Portable chest single view 05/22/2023 FINDINGS: Lungs: The evaluation is somewhat limited by obliquity. Similar perihilar subsegmental changes noted. Similar subsegmental right infrahilar changes. No new focal airspace consolidation. Pleural space: The left costophrenic margin is clearly delineated secondary to obliquity, cardiomegaly and overlying soft tissues. The right costophrenic margin is sharp. No pneumothorax. Heart: Cardiac silhouette remains enlarged. Mediastinum: Evaluation of mediastinal contours is limited. No obvious ulceration. No tracheal deviation. Bones/joints: Unremarkable. No acute fracture. Tubes, lines and devices: Left subclavian approach dual lead pacer. IMPRESSION: Limited by obliquity and patient body habitus. Accounting for limitations, no definite focal airspace consolidation or significant alteration from the prior examination. Electronically signed by: Thomas Patrick MD 03/12/24 00:36 AM Code Status & VTE Plan Code Status DNR/DNI VTE Prophylaxis Plan VTE Prophylaxis will be ordered: Yes PG Care Time/CCT Total # of Minutes Spent Total Time Spent with Patient: Total time spent is greater than 50% in coordination of care (as documented) at patient's floor/unit and/or counseling patient: Coding Level of Care Code 38918 INT INP/OBS CARE 3/75MIN Diagnoses Altered mental state R41.82 Acute dehydration E86.0 Acute UTI N39.0 Recent urinary tract infection Z87.440 Infection due to ESBL-producing Escherichia coli A49.8; Z16.12 COPD (chronic obstructive pulmonary disease) J44.9 CMC arthritis M19.049 Hyperglycemia due to diabetes mellitus E11.65
[2024-03-12] MEDS: HYDROCORTISONE SOD SUCCINATE 100 MG/2 ML VIAL IV STA (01:55)
[2024-03-12 02:07] LABS: Adenovirus PCR Not Detected (NotDetected); Bordetella parapertussis PCR Not Detected (NotDetected); Bordetella pertussis PCR Not Detected (NotDetected); Chlamydia pneumoniae PCR Not Detected (NotDetected); Coronavirus 229E PCR Not Detected (NotDetected); Coronavirus CoV-2 (COVID19)PCR Not Detected (NotDetected); Coronavirus HKU1 PCR Not Detected (NotDetected); Coronavirus NL63 PCR Not Detected (NotDetected); Coronavirus OC43PCR Not Detected (NotDetected); Human Metapneumovirus PCR Not Detected (NotDetected); Influenza A PCR Not Detected (NotDetected); Influenza B PCR Not Detected (NotDetected); Mycoplasma pneumoniae PCR Not Detected (NotDetected); Parainfluenza Virus 1 PCR Not Detected (NotDetected); Parainfluenza Virus 2 PCR Not Detected (NotDetected); Parainfluenza Virus 3 PCR Not Detected (NotDetected); Parainfluenza Virus 4 PCR Not Detected (NotDetected); Respiratory Syncytial VirusPCR Not Detected (NotDetected); Rhinovirus/Enterovirus PCR Not Detected (NotDetected)
[2024-03-12] MEDS ORDERED: DEXTROSE 50% 50 ML SYRINGE IV PRN (02:51)
[2024-03-12] MEDS ORDERED: GLUCOSE 40% GEL 15 GM TUBE PO PRN (02:51)
[2024-03-12] MEDS ORDERED: ONDANSETRON INJ 2 MG/ML 2 ML VIAL IV PRN (02:51)
[2024-03-12] MEDS ORDERED: GLUCOSE 10 TAB/TUBE PO PRN (02:51)
[2024-03-12] MEDS ORDERED: CARBOHYDRATES FOR HYPOGLYCEMIA PO PRN (02:51)
[2024-03-12] MEDS ORDERED: ALBUT/IPRATROP 3MG/0.5MG NEB 3 ML VIAL INH PRN (02:51)
[2024-03-12] MEDS ORDERED: GLUCAGON FOR INJ 1 MG VIAL SQ PRN (02:51)
[2024-03-12] MEDS ORDERED: METOPROLOL TARTRATE 1 MG/ML VIAL IV PRN (03:36)
[2024-03-12] MEDS: SODIUM CHLORIDE 0.9% 1,000 ML IV SCH ×2 (04:11→15:38)
[2024-03-12 07:34] LABS: Estimated Average Glucose 186 mg/dl; Hemoglobin A1C 8.1 % (4.5-5.6)
[2024-03-12] MEDS: PANTOprazole 40 MG/10 ML SYR IV SCH (09:04)
[2024-03-12] MEDS: LANTUS PER UNIT CHARGE SQ SCH (09:05)
[2024-03-12] MEDS: PIPERACILLIN/TAZOBACTAM 4.5 GM/100 ML BAG IV SCH (09:08)
[2024-03-12] MEDS: INSULIN ASPART PER UNIT CHARGE SC SCH (09:08)
[2024-03-12] MEDS: HEPARIN SOD 5,000 UNIT/0.5 ML VIAL SQ SCH (09:11)
[2024-03-12] MEDS: VALPROATE SOD 250 MG in DEXTROSE 5% 50 ML IV SCH (09:11)
[2024-03-12] MEDS: HYDROCORTISONE SOD 100 MG in SYRINGE 0 ML IV SCH (09:12)
--- NOTE | 2024-03-12 15:29 | Hospitalist Progress Note ---
Date of Service March 12, 2024 Assessment & Plan (1) Altered mental state: Plan: Acute metabolic encephalopathy present on admission. Most likely due to underlying UTI. Supportive care. Continue IV antibiotics (2) Acute dehydration: Plan: Present on admission. Continue IV fluids. Monitor intake and output. Serial labs (3) Acute UTI: Plan: Recurrent. She has recently placed indwelling Rodriguez catheter. Probably CAUTI. History of ESBL E. coli infections along with Pseudomonas. She is currently on Zosyn, day 1 (4) COPD (chronic obstructive pulmonary disease): Plan: Stable. (5) Hyperglycemia due to diabetes mellitus: Plan: Nonfasting elevated glucose on admission. Basal insulin therapy has been reduced due to limited oral intake on admission. Most recent hemoglobin A1c 8.1%. Sliding scale coverage. (6) Trigeminal neuralgia: Plan: Recently started on prednisone and Depakote for trigeminal neuralgia. She is currently on parenteral steroid therapy Plan Anticipate eventual return to Center care later this week. Admission and Anticipated Discharge Date Admission Date: March 12, 2024 Subjective Alert and oriented at the time of my examination. She appears to have a recurrent urinary tract infection and has a history of ESBL E. coli sensitive to Zosyn which she is now on. She was recently started on prednisone and Depakote for trigeminal neuralgia and is currently on parenteral steroid therapy. Lantus dosage has been decreased slightly to prevent hypoglycemia. Recent cardiac echo reveals normal ejection fraction. Review of Systems 2 Review of Systems: Constitutionalno fever or chills ENTno blurred vision, no double vision, no epistaxis, no sore throat Respiratoryno cough, no wheezing, no shortness of breath Cardiacno palpitations, no chest pain, no syncope Chris nausea, vomiting, diarrhea, melena, hematochezia GUFoley catheter in place due to recent urinary incontinence Musculoskeletalno joint pain, no muscle tenderness Skinno bruising, no rashes, no pruritus Neurono isolated weakness, no paresthesia. She does have generalized weakness Psychno depression, no anxiety Physical Exam 2 Physical Exam: General-alert and oriented x3, no fever, no chills. Morbidly obese HEENT-head atraumatic and normocephalic, pupils equal and reactive to light, extraocular muscles intact Neck-no lymphadenopathy or thyromegaly, trachea midline Chest-clear to auscultation. No rales, wheezing or rhonchi Cardiac-regular rate and rhythm, normal S1 and S2 Abdomen-normal bowel sounds, no hepatosplenomegaly GUFoley catheter in place. Dark urine noted Extremities-chronic venous stasis noted bilateral lower extremities with stasis dermatitis Neuro-cranial nerves II through XII intact, motor and sensory function within normal limits, strength symmetrical with generalized weakness, no focal deficits Psych-normal affect, normal mood Results & Data Results & Data Vital Signs (Past 12 Hours) Vital Signs Temp Pulse Pulse Resp BP BP Pulse Ox 03/12/24 14:53 03/12/24 14:12 36.9 C 87 20 118/81 98 03/12/24 07:04 87 03/12/24 06:19 88 24 139/77 99 03/12/24 04:14 37.3 C 89 28 H 118/68 100 03/12/24 03:45 93 H 26 H 129/72 100 O2 Del Method O2 Flow Rate 03/12/24 14:53 Nasal Cannula 4 03/12/24 14:12 Room Air 03/12/24 07:04 03/12/24 06:19 03/12/24 04:14 Nasal Cannula 2 03/12/24 03:45 Laboratory Results 03/11/24 23:15 03/11/24 23:15 PG Care Time/CCT Total # of Minutes Spent Total Time Spent with Patient: Total time spent is greater than 50% in coordination of care (as documented) at patient's floor/unit and/or counseling patient: Coding Level of Care Code 82855 SUB INP/OBS CARE 3/50MIN Diagnoses Altered mental state R41.82 Acute dehydration E86.0 Acute UTI N39.0 COPD (chronic obstructive pulmonary disease) J44.9 Hyperglycemia due to diabetes mellitus E11.65 Trigeminal neuralgia G50.0
[2024-03-12] MEDS: NYSTATIN POWDER 15GM BTL EXT SCH (21:04)
[2024-03-12] MEDS: HYDROCORTISONE SOD 50 MG in SYRINGE 0 ML IV SCH (21:21)
[2024-03-13 06:27] LABS: Basophils # (auto) 0.01 K/uL (0.00-0.20); Basophils % (auto) 0.2 %; Eosinophils # (auto) 0.02 K/uL (0.00-0.50); Eosinophils % (auto) 0.4 %; Hematocrit (blood only) 35.8 % (37.0-47.0); Hemoglobin 11.2 g/dl (12.0-16.0); Immature Granulocytes # (auto) 0.19 K/uL (0.01-0.20); Immature Granulocytes % (auto) 3.4 %; Lymphocytes # (auto) 1.22 K/uL (1.20-3.40); Lymphocytes % (auto) 21.5 %; Mean Corpuscular Hemoglobin 28.9 pg (25.0-34.0); Mean Corpuscular Hgb Conc 31.3 g/dL (32.0-36.0); Mean Corpuscular Volume 92.3 fL (80.0-100.0); Mean Platelet Volume 10.7 fL (9.4-12.4); Monocytes # (auto) 0.45 K/uL (0.11-0.59); Monocytes % (auto) 7.9 %; Neutrophils # (auto) 3.78 K/uL (1.40-6.50); Neutrophils % (auto) 66.6 %; Platelet Count 133 K/uL (130-400); RDW Coefficient of Variation 13.2 % (11.5-14.5); RDW Standard Deviation 44.7 fL (36.4-46.3); Red Blood Count 3.88 M/uL (4.20-5.40); White Blood Count 5.67 K/ul (4.8-10.8)
[2024-03-13 06:51] LABS: Albumin Globulin Ratio 1.1 (0.9-2); Albumin Level 2.8 gm/dl (3.4-5.0); BUN Creatinine Ratio 38.5 (10-20); Bilirubin,Total 0.3 mg/dl (0.2-1.0); Calcium 8.5 mg/dl (8.6-10.3); Creatinine Clr Calc Pharmacy 70.2 ml/min; Globulin 2.6 gm/dl (2.5-4.0); Magnesium 1.8 mg/dl (1.7-2.4); Potassium 3.7 mmol/L (3.5-5.1); Total Protein 5.4 gm/dl (6.0-8.3)
[2024-03-13] MEDS: HYDROCORTISONE SOD 25 MG in SYRINGE 0 ML IV SCH (11:55)
--- NOTE | 2024-03-13 15:57 | Hospitalist Progress Note ---
Date of Service March 13, 2024 Assessment & Plan (1) Altered mental state: Plan: Acute metabolic encephalopathy present on admission. Now resolved. (2) Acute dehydration: Plan: Present on admission. Resolved with IV fluids. Monitor intake and output. Serial labs (3) Acute UTI: Plan: Recurrent. She has recently placed indwelling Rodriguez catheter. Urine culture positive for E. coli. Blood culture remains negative to date. This represents a CAUTI. History of ESBL E. coli infections along with Pseudomonas. She is currently on Zosyn, day 2 (4) COPD (chronic obstructive pulmonary disease): Plan: Stable. Continue current medical management (5) Hyperglycemia due to diabetes mellitus: Plan: Nonfasting elevated glucose on admission. Basal insulin therapy was reduced due to limited oral intake on admission. Most recent hemoglobin A1c 8.1%. Sliding scale coverage. Glucose 117 this morning, March 13 (6) Trigeminal neuralgia: Plan: Recently started on prednisone and Depakote for trigeminal neuralgia. She is currently on parenteral steroid therapy which was down titrated again today, March 13. Will discontinue intravenous steroids tomorrow, March 14 Plan Anticipate eventual return to [facility] later this week. Hopefully tomorrow, March 14, on an oral antibiotic Admission and Anticipated Discharge Date Admission Date: March 12, 2024 Subjective Alert and oriented. She is much improved today. Urine cultures growing E. coli. Blood cultures are negative to date. She remains on intravenous Zosyn, day 2. IV fluids will be discontinued. Intravenous hydrocortisone taper down again today and will be discontinued tomorrow, March 14. She is complaining of a chronic sacral decubitus that was present on admission. Wound care consultation requested. Review of Systems 2 Review of Systems: Constitutionalno fever or chills ENTno blurred vision, no double vision, no epistaxis, no sore throat Respiratoryno cough, no wheezing, no shortness of breath Cardiacno palpitations, no chest pain, no syncope Chris nausea, vomiting, diarrhea, melena, hematochezia GUFoley catheter in place due to recent urinary incontinence Musculoskeletalno joint pain, no muscle tenderness Skinno bruising, no rashes, no pruritus Neurono isolated weakness, no paresthesia. She does have generalized weakness Psychno depression, no anxiety Physical Exam 2 Physical Exam: General-alert and oriented x3, no fever, no chills. Morbidly obese HEENT-head atraumatic and normocephalic, pupils equal and reactive to light, extraocular muscles intact Neck-no lymphadenopathy or thyromegaly, trachea midline Chest-clear to auscultation. No rales, wheezing or rhonchi Cardiac-regular rate and rhythm, normal S1 and S2 Abdomen-normal bowel sounds, no hepatosplenomegaly GUFoley catheter in place. Dark urine noted Extremities-chronic venous stasis noted bilateral lower extremities with stasis dermatitis Neuro-cranial nerves II through XII intact, motor and sensory function within normal limits, strength symmetrical with generalized weakness, no focal deficits Psych-normal affect, normal mood Results & Data Results & Data Vital Signs (Past 12 Hours) Vital Signs Temp Pulse Pulse Resp BP Pulse Ox O2 Del Method 03/13/24 14:59 36.6 C 62 18 153/76 H 100 Nasal Cannula 03/13/24 14:15 63 03/13/24 11:22 36.6 C 60 18 138/58 L 100 Nasal Cannula 03/13/24 09:41 61 03/13/24 07:57 36.8 C 63 18 158/77 H 99 Room Air 03/13/24 07:37 Nasal Cannula O2 Flow Rate 03/13/24 14:59 03/13/24 14:15 03/13/24 11:22 2 03/13/24 09:41 03/13/24 07:57 03/13/24 07:37 2 Laboratory Results 03/13/24 05:43 03/13/24 05:43 PG Care Time/CCT Total # of Minutes Spent Total Time Spent with Patient: Total time spent is greater than 50% in coordination of care (as documented) at patient's floor/unit and/or counseling patient: Coding Level of Care Code 22315 SUB INP/OBS CARE 3/50MIN Diagnoses Altered mental state R41.82 Acute dehydration E86.0 Acute UTI N39.0 COPD (chronic obstructive pulmonary disease) J44.9 Hyperglycemia due to diabetes mellitus E11.65 Trigeminal neuralgia G50.0
[2024-03-14 03:29] VITALS: RESP 18
[2024-03-14 06:37] LABS: Basophils # (auto) 0.01 K/uL (0.00-0.20); Basophils % (auto) 0.2 %; Eosinophils # (auto) 0.05 K/uL (0.00-0.50); Eosinophils % (auto) 0.9 %; Hematocrit (blood only) 34.1 % (37.0-47.0); Hemoglobin 10.8 g/dl (12.0-16.0); Immature Granulocytes # (auto) 0.14 K/uL (0.01-0.20); Immature Granulocytes % (auto) 2.6 %; Lymphocytes # (auto) 1.49 K/uL (1.20-3.40); Lymphocytes % (auto) 27.3 %; Mean Corpuscular Hgb Conc 31.7 g/dL (32.0-36.0); Mean Corpuscular Volume 91.7 fL (80.0-100.0); Mean Platelet Volume 10.6 fL (9.4-12.4); Monocytes # (auto) 0.48 K/uL (0.11-0.59); Monocytes % (auto) 8.8 %; Neutrophils # (auto) 3.29 K/uL (1.40-6.50); Neutrophils % (auto) 60.2 %; Platelet Count 146 K/uL (130-400); RDW Coefficient of Variation 13.2 % (11.5-14.5); RDW Standard Deviation 43.9 fL (36.4-46.3); Red Blood Count 3.72 M/uL (4.20-5.40); White Blood Count 5.46 K/ul (4.8-10.8)
[2024-03-14 07:04] LABS: Albumin Globulin Ratio 1.1 (0.9-2); Albumin Level 2.8 gm/dl (3.4-5.0); BUN Creatinine Ratio 34.8 (10-20); Bilirubin,Total 0.3 mg/dl (0.2-1.0); Calcium 8.5 mg/dl (8.6-10.3); Creatinine Clr Calc Pharmacy 70.7 ml/min; Globulin 2.5 gm/dl (2.5-4.0); Magnesium 1.8 mg/dl (1.7-2.4); Potassium 3.5 mmol/L (3.5-5.1); Total Protein 5.3 gm/dl (6.0-8.3)
[2024-03-14 07:54] VITALS: BP 168/74; TEMP 98.2; O2SAT 100
--- NOTE | 2024-03-14 10:42 | Electrocardiogram Report ---
Test Reason : Blood Pressure : */* mmHG Vent. Rate : 86 BPM Atrial Rate : 86 BPM P-R Int : 226 ms QRS Dur : 186 ms QT Int : 396 ms P-R-T Axes : 90 -70 98 degrees QTcB Int : 473 ms Atrial-sensed ventricular-paced rhythm with prolonged AV conduction Abnormal ECG When compared with ECG of 22-May-2023 13:47, Vent. rate has increased by 16 bpm Confirmed by Augusto Villar ([id number]) on 03/14/2024 10:41:52 AM Referred By: REFERRED SELF Confirmed By: Augusto Villar
--- NOTE | 2024-03-14 11:59 | Discharge Summary ---
Discharge Summary Date of Service March 14, 2024 Principal Dx & Hospital Course #1 = Principal Diagnosis (1) Altered mental state: Acute metabolic encephalopathy present on admission. Now resolved. (2) Acute dehydration: Present on admission. Resolved with IV fluids. Monitor intake and output. Serial labs (3) Acute UTI: Recurrent. She has recently placed indwelling Adan catheter. Urine culture positive for ESBL E. coli. Blood culture remains negative to date. This represents a CAUTI. Treated while hospitalized with intravenous Zosyn. She will continue oral Augmentin for 1 more week at discharge. (4) COPD (chronic obstructive pulmonary disease): Stable. Continue current medical management (5) Hyperglycemia due to diabetes mellitus: Nonfasting elevated glucose on admission. Basal insulin therapy was reduced due to limited oral intake on admission. Dosage can be return to her usual dosage at discharge. Most recent hemoglobin A1c 8.1%. Sliding scale coverage. (6) Trigeminal neuralgia: Recently started on prednisone and Depakote for trigeminal neuralgia. Treated while hospitalized with parenteral steroid therapy. She will resume her oral prednisone dosage at discharge. Plan Discharge back to [facility] today, March 14 Admission HPI Per Admitting Provider The patient is a 78-year-old female with a past medical history including CMC arthritis, idiopathic polyneuropathy, urinary tract infections, stress and urge urinary incontinence, HFrEF, COPD, acute and chronic respiratory failure, anxiety with depression, diabetes mellitus, CKD stage III, hypertension, and presence of pacemaker. She is referred to the emergency department from [facility] due to temperature responsiveness. The patient is unresponsive in the emergency department, and unable to contribute to her HPI or ROS. Information is gathered from transfer report and from the ED Discharge Exam General-alert and oriented x3, no fever, no chills. Morbidly obese HEENT-head atraumatic and normocephalic, pupils equal and reactive to light, extraocular muscles intact Neck-no lymphadenopathy or thyromegaly, trachea midline Chest-clear to auscultation. No rales, wheezing or rhonchi Cardiac-regular rate and rhythm, normal S1 and S2 Abdomen-normal bowel sounds, no hepatosplenomegaly GUFoley catheter in place. Dark urine noted Extremities-chronic venous stasis noted bilateral lower extremities with stasis dermatitis Neuro-cranial nerves II through XII intact, motor and sensory function within normal limits, strength symmetrical with generalized weakness, no focal deficits Psych-normal affect, normal mood Discharge Plan Discharge Items Patient Disposition: Transfer Residential Fac Reason For Visit: SEPSIS DUE TO ADAN UTI Discharge Diagnosis: ESBL E. coli CAUTI, volume depletion, elevated troponin without acute coronary syndrome, sacral decubitus Activity: Resume your previous activity Non-emergency contact: Primary Care Provider Call non-emergency contact if: your symptoms worsen Follow-up/Referrals: [facility] [Primary Care Provider] - Diet: Carb Consistent or DM2 Addtl Attending Provider Instructions: Continue amoxicillin/clavulanate oral antibiotic for 1 more week. Follow-up with wound care center for treatment of sacral decubitus ulcer Pending Studies at Discharge: No Stand-Alone Forms: My [facility] Skilled Items Patient informed of condition?: Yes DNR: Yes Discharge Level of Care: Skilled Communicable Disease: No Discharge Prognosis: Stable Lines: None Urinary Catheter: No Medications and DC Order Prescriptions: New amoxicillin-pot clavulanate 875-125 mg tablet 1 tab PO BID Qty: 14 0RF Continued (DME) pen needle, diabetic [Comfort EZ Pen [place]] 31 gauge x 5/16" needle See Rx Instructions .Route Qty: 100 5RF Rx Instructions: 3 TIMES DAILY atorvastatin 10 mg tablet 10 mg PO 3XWK Qty: 36 3RF Rx Instructions: Mon/Weds/Fri omeprazole 20 mg capsule,delayed release(DR/EC) 20 mg PO QAM Qty: 90 3RF levothyroxine 50 mcg tablet 50 mcg PO DAILY acetaminophen [Tylenol Extra Strength] 500 mg tablet 1,000 mg PO Q8H PRN (Reason: fever/pain) (DME) lancets [OneTouch Delica Lancets] 30 gauge misc See Dose Instructions .ROUTE .MEDSUPPLY Qty: 25 Rx Instructions: As directed ipratropium-albuterol 0.5 mg-3 mg(2.5 mg base)/3 mL Solution For Nebulization 3 ml INHALATION Q2H PRN (Reason: SOB/wheezing) ipratropium-albuterol 0.5 mg-3 mg(2.5 mg base)/3 mL Solution For Nebulization 3 ml INHALATION QID bisacodyl [Dulcolax (bisacodyl)] 10 mg Suppository 10 mg TN DAILY PRN (Reason: Constipation) Fleet Enema 19-7 gram/118 mL Enema 118 ml TN DAILY PRN (Reason: Constipation) insulin lispro [Humalog U-100 Insulin] 100 unit/mL Solution 1 sliding scale dose SUBCUT USEASDIRECTD Rx Instructions: 350-400=8U;401-450=12U;451-500=16U;501-550=18U; Recheck BS in 2h, prn fluticasone propionate 50 mcg/actuation [place],Suspension 2 spray INTRANASAL QAM Rx Instructions: administer into each nostril Biofreeze (menthol) 4 % Gel 1 applic TOPICAL Q8H PRN (Reason: Pain) Rx Instructions: neck, shoulders guaifenesin [Mucinex] 600 mg Tablet Extended Release 12hr 600 mg PO Q12H insulin glargine [Lantus U-100 Insulin] 100 unit/mL solution 35 unit subcut [facility] lorazepam 0.5 mg tablet 0.25 mg PO DAILY PRN (Reason: Anxiety) Rx Instructions: as needed for anxiety carvedilol 3.125 mg Tablet 3.125 mg PO BIDM Qty: 30 0RF divalproex 250 mg tablet,delayed release (DR/EC) 250 mg PO BID buspirone 15 mg tablet 15 mg PO TID Saccharomyces boulardii [Florastor] 250 mg Capsule 250 mg PO [facility] furosemide 40 mg tablet 40 mg PO BID gabapentin 300 mg capsule 600 mg PO TID potassium chloride 10 mEq tablet,ER particles/crystals 10 meq PO QAM prednisone 5 mg tablet 5 mg PO QAM polyethylene glycol 3350 [Miralax] 17 gram/dose Powder 17 g PO [facility]HS simethicone 80 mg Tablet,Chewable 160 mg PO [facility] venlafaxine 75 mg tablet extended release 24hr 225 mg PO QAM Rx Instructions: 3 tablet dose Trelegy Ellipta 200-62.5-25 mcg blister with device 1 inh INHALATION QAM tramadol 50 mg tablet 50 mg PO Q6 PRN (Reason: pain 9-10) triamcinolone acetonide 0.1 % cream 1 applic TOPICAL BID Rx Instructions: apply to abdomen and breast folds every day and evening shift calcium carbonate 500 mg calcium (1,250 mg) Tablet,Chewable 1,000 mg PO Q6 PRN (Reason: Indigestion) Discontinued cefuroxime axetil 500 mg tablet 500 mg PO [facility] Rx Instructions: start 03/10/24 take for 7 days Discharge Orders: Discharge Order (Routine); Ordered 03/14/24 Ordered By: Peterson Lloyd Admission Data Admit Date/Time: 03/12/24 01:53 Attending Provider: Peterson Lloyd Admit Provider: Austin Billy Primary Care Provider: Celine Ayala Other Providers: Austin Billy Hospital Stay Data Consultations 03/12/24 01:08 ED Decision to Admit Stat Pending Results Patient Have Any Pending Studies at Discharge: No Discharge Instructions Given to Patient (Per Discharging Provider) Continue amoxicillin/clavulanate oral antibiotic for 1 more week. Follow-up with wound care center for treatment of sacral decubitus ulcer Total Time Total Time Spent Total Time Spent (In Minutes): 50 minutes Coding Level of Care Code 55557 INP/OBS DISCH >30 MIN Diagnoses Altered mental state R41.82 Acute dehydration E86.0 Acute UTI N39.0 COPD (chronic obstructive pulmonary disease) J44.9 Hyperglycemia due to diabetes mellitus E11.65 Trigeminal neuralgia G50.0
[2024-03-14] MEDS: ACETAMINOPHEN 1,000 MG/100 ML VIAL IV PRN (12:05)
[2024-03-14 13:17] VITALS: PULSE 63
[2024-03-14] MEDS ORDERED: DIVALPROEX DELAY RELEASE 250 MG TABEC PO SCH (21:00)
== END 2024-03-14 15:30 | DRG 698 ==
LOC: ED 22:55 → SUATTDRO 03-12 01:53 → EDINP 03-12 01:53 → 2E 03-12 14:12

== ENCOUNTER 2024-03-16 23:43 | Inpatient (IN) ==
[2024-03-17] MEDS: ACETAMINOPHEN 1,000 MG/100 ML VIAL IV STA (00:57)
[2024-03-17 00:59] LABS: Hematocrit (blood only) 38.8 % (37.0-47.0); Mean Corpuscular Hemoglobin 28.8 pg (25.0-34.0); Mean Corpuscular Hgb Conc 30.9 g/dL (32.0-36.0); Mean Corpuscular Volume 93.3 fL (80.0-100.0); Mean Platelet Volume 10.2 fL (9.4-12.4); Nucleated RBC # (auto) 0.02 K/uL (0.00-0.12); Nucleated RBC % (auto) 0.3 %; Platelet Count 166 K/uL (130-400); RDW Coefficient of Variation 13.8 % (11.5-14.5); RDW Standard Deviation 46.8 fL (36.4-46.3); Red Blood Count 4.16 M/uL (4.20-5.40); White Blood Count 7.87 K/ul (4.8-10.8)
[2024-03-17 01:19] LABS: Basophils # (auto) 0.04 K/uL (0.00-0.20); Basophils % (auto) 0.5 %; Eosinophils # (auto) 0.03 K/uL (0.00-0.50); Eosinophils % (auto) 0.4 %; Immature Granulocytes # (auto) 0.43 K/uL (0.01-0.20); Immature Granulocytes % (auto) 5.5 %; Lymphocytes # (auto) 0.86 K/uL (1.20-3.40); Lymphocytes % (auto) 10.9 %; Monocytes # (auto) 0.29 K/uL (0.11-0.59); Monocytes % (auto) 3.7 %; Neutrophils # (auto) 6.22 K/uL (1.40-6.50); RBC Morphology Unremarkable
[2024-03-17 01:20] LABS: Albumin Level 3.2 gm/dl (3.4-5.0); BUN Creatinine Ratio 21.3 (10-20); Bilirubin Direct 0.1 mg/dl (0-0.2); Bilirubin,Total 0.4 mg/dl (0.2-1.0); Calcium 8.8 mg/dl (8.6-10.3); Creatinine Clr Calc Pharmacy 89.6 ml/min; Magnesium 1.5 mg/dl (1.7-2.4); Potassium 4.1 mmol/L (3.5-5.1); Total Protein 6.2 gm/dl (6.0-8.3)
[2024-03-17 01:24] LABS: Troponin I High Sensitivity 44.1 pg/ml (0-14)
[2024-03-17 01:48] LABS: Adenovirus PCR Not Detected (NotDetected); Bordetella parapertussis PCR Not Detected (NotDetected); Bordetella pertussis PCR Not Detected (NotDetected); Chlamydia pneumoniae PCR Not Detected (NotDetected); Coronavirus 229E PCR Not Detected (NotDetected); Coronavirus CoV-2 (COVID19)PCR DETECTED (NotDetected); Coronavirus HKU1 PCR Not Detected (NotDetected); Coronavirus NL63 PCR Not Detected (NotDetected); Coronavirus OC43PCR Not Detected (NotDetected); Human Metapneumovirus PCR Not Detected (NotDetected); Influenza A PCR Not Detected (NotDetected); Influenza B PCR Not Detected (NotDetected); Mycoplasma pneumoniae PCR Not Detected (NotDetected); Parainfluenza Virus 1 PCR Not Detected (NotDetected); Parainfluenza Virus 2 PCR Not Detected (NotDetected); Parainfluenza Virus 3 PCR Not Detected (NotDetected); Parainfluenza Virus 4 PCR Not Detected (NotDetected); Respiratory Syncytial VirusPCR Not Detected (NotDetected); Rhinovirus/Enterovirus PCR Not Detected (NotDetected)
[2024-03-17] MEDS: MEROPENEM 500 MG in SYRINGE 0 ML IV STA (01:49)
[2024-03-17] MEDS: SODIUM CHLORIDE 0.9% 1,000 ML IV ONE (01:52)
[2024-03-17 01:55] LABS: Base Excess VBG 17.1 mEq/L; HCO3 VBG 45 mmol/L; Oxygen Saturation VBG 91.1 %; PCO2 VBG 68 mmHg (38-50); PO2 VBG 60 mmHg; pH VBG 7.43 (7.36-7.41)
[2024-03-17] MEDS: OPTIRAY 320 125ml IV ONE (02:10)
[2024-03-17] MEDS: MAGNESIUM SULFATE / D5W 1 GM/100 ML BAG IV SCH (02:11)
--- NOTE | 2024-03-17 02:39 | History & Physical Report ---
Date of Service March 17, 2024 Assessment & Plan (1) COVID: Plan: Patient with Covid-19 infection. Likely cause for SOB, mild fever and weakness. Saturations have been borderline -Tx with Dexamethasone -Continue O2 as needed -Maintain isolation -Tylenol PRN -Nebs PRN -Lovenox for DVT prophylaxis (2) Metabolic encephalopathy: Plan: Patient with ongoing somnolence. Likely secondary to Covid 19 infection. Consider UTI as well. -Follow urine Culture -Meropenem for now given h/o ESBL -check ammonia level Plan COPD -Placed on BiPAP for somnolence, elevated pCO2 on VBG -Wean as tolerated -Continue DuoNebs, Trelegy Hyperlipidemia -Continue Atorvastatin Anxiety -Continue Buspirone and Venlafaxine Diabetes -Lantus 30u BID -ISS Hypothyroid -Synthroid History of Present Illness Chief Complaint: sob Primary Care Provider: [facility] 78yo female with h/o COPD, CHF and HLP presenting from [facility] with lethargy, SOB, weakness and hypoxia. Patient recently admitted to [facility] 03/12 - 03/14 with metabolic encephalopathy d/t ESBL E. coli UTI. She was treated with Zosyn and sent to [facility] on Augmentin. Returns with ongoing SOB, generalized weakness, fatigue. Patient unable to provide details of events. History obtained from chart review Allergies Allergy/AdvReac Type Severity Reaction Status Date / Time chocolate flavor Allergy Intermediate Headache Verified 02/20/24 14:30 erythromycin base Allergy Intermediate CONFUSION, Verified 02/20/24 14:30 HEADACHE nitrofurantoin Allergy Intermediate 15 Verified 02/20/24 14:30 different symptoms Home Medications Medication Instructions Recorded Confirmed Type pen needle, diabetic 31 gauge x #100 ea 06/11/21 03/17/24 Rx /16" (Comfort EZ Pen [place]) atorvastatin 10 mg tablet 10 mg PO 3XWK #36 tabs 09/29/21 03/17/24 Rx omeprazole 20 mg capsule,delayed 20 mg PO QAM #90 caps 10/21/21 03/17/24 Rx release acetaminophen 500 mg tablet 1,000 mg PO Q8H PRN fever/pain 02/07/23 03/17/24 History (Tylenol Extra Strength) levothyroxine 50 mcg tablet 50 mcg PO DAILY 02/07/23 03/17/24 History bisacodyl 10 mg rectal suppository 10 mg CA DAILY PRN Constipation 05/22/23 03/17/24 History (Dulcolax (bisacodyl)) fluticasone propionate 50 2 spray intranasal QAM 05/22/23 03/17/24 History mcg/actuation nasal spray,suspension guaifenesin 600 mg tablet, 600 mg PO Q12H 05/22/23 03/17/24 History extended release 12 hr (Mucinex) insulin glargine 100 unit/mL 35 unit subcut AMHS 05/22/23 03/17/24 History subcutaneous solution (Lantus U-100 Insulin) insulin lispro 100 unit/mL 1 sliding scale dose subcut 05/22/23 03/17/24 History subcutaneous solution (Humalog USEASDIRECTD U-100 Insulin) ipratropium 0.5 mg-albuterol 3 mg 3 ml inhalation Q2H PRN 05/22/23 03/17/24 History (2.5 mg base)/3 mL nebulization SOB/wheezing soln ipratropium 0.5 mg-albuterol 3 mg 3 ml inhalation QID 05/22/23 03/17/24 History (2.5 mg base)/3 mL nebulization soln lorazepam 0.5 mg tablet 0.25 mg PO DAILY PRN Anxiety 05/22/23 03/17/24 History menthol 4 % topical gel (Biofreeze 1 applic topical Q8H PRN Pain 05/22/23 03/17/24 History (menthol)) sodium phosphates 19 gram-7 118 ml CA DAILY PRN Constipation 05/22/23 03/17/24 History gram/118 mL enema (Fleet Enema) carvedilol 3.125 mg tablet 3.125 mg PO BIDM #30 tabs 05/26/23 03/17/24 Rx Saccharomyces boulardii 250 mg 250 mg PO AMHS 03/12/24 03/17/24 History capsule (Florastor) buspirone 15 mg tablet 15 mg PO TID 03/12/24 03/17/24 History calcium carbonate 1,000 mg PO Q6 PRN Indigestion 03/12/24 03/17/24 History divalproex 250 mg tablet,delayed 250 mg PO BID 03/12/24 03/17/24 History release fluticasone fur. 200 mcg-umeclid 1 inh inhalation QAM 03/12/24 03/17/24 History 62.5 mcg-vilant 25 mcg inhalat.powder (Trelegy Ellipta) furosemide 40 mg tablet 40 mg PO BID 03/12/24 03/17/24 History gabapentin 300 mg capsule 600 mg PO TID 03/12/24 03/17/24 History polyethylene glycol 3350 17 17 g PO AMHS 03/12/24 03/17/24 History gram/dose oral powder (Miralax) potassium chloride 10 mEq 10 meq PO QAM 03/12/24 03/17/24 History tablet,extended release(part/cryst) prednisone 5 mg tablet 5 mg PO QAM 03/12/24 03/17/24 History simethicone 80 mg chewable tablet 160 mg PO AMHS 03/12/24 03/17/24 History tramadol 50 mg tablet 50 mg PO Q6 PRN pain 9-10 03/12/24 03/17/24 History triamcinolone acetonide 0.1 % 1 applic topical BID 03/12/24 03/17/24 History topical cream venlafaxine 75 mg tablet,extended 225 mg PO QAM 03/12/24 03/17/24 History release 24 hr amoxicillin 875 mg-potassium 1 tab PO BID #14 tabs 03/14/24 03/17/24 Rx clavulanate 125 mg tablet nystatin 100,000 unit/gram topical 1 applic topical BID 03/17/24 03/17/24 History powder (Nyamyc) Past Med/Surg History Problem List (Updated 03/17/24 @ 06:12 by Gwen Alan DO) Metabolic encephalopathy COVID Trigeminal neuralgia Hyperglycemia due to diabetes mellitus Acute hyperglycemia (Acute) Altered mental state (Acute) Acute dehydration (Acute) Acute UTI (Acute) CMC arthritis Carpal tunnel syndrome, left Idiopathic polyneuropathy Elevated brain natriuretic peptide (BNP) level (Acute) Elevated troponin (Acute) Acute respiratory failure with hypoxia and hypercapnia Acute respiratory failure with hypoxia Hyperkalemia (Acute) Recent urinary tract infection Urinary retention with incomplete bladder emptying Mixed stress and urge urinary incontinence Dry skin dermatitis HFrEF (heart failure with reduced ejection fraction) (HFpEF) heart failure with preserved ejection fraction COPD (chronic obstructive pulmonary disease) ARF (acute renal failure) Infection due to ESBL-producing Escherichia coli Urinary incontinence Hypokalemia Pneumonia Elevated troponin Respiratory distress (Acute) CHF (congestive heart failure) (Acute) Somnolence (Acute) Leukocytosis (Acute) Elevated CO2 level (Acute) Acute and chronic respiratory failure with hypercapnia (Acute) UTI (urinary tract infection) Anxiety with depression Hyperlipidemia Subcutaneous abscess (Acute) Cellulitis of female genitalia (Acute) Pneumonia due to 2019 novel coronavirus (Acute) Acute exacerbation of chronic obstructive pulmonary disease (Acute) Infection of lip COVID-19 Eczema Shoulder pain Urinary incontinence Diabetes (Acute) 1st degree AV block (Acute) Anxiety (Acute) Atrial paroxysmal tachycardia (Acute) Generalized osteoarthrosis, unspecified site (Acute) LAFB (left anterior fascicular block) (Acute) Mild obstructive sleep apnea (Acute) Morbid obesity (Acute) Nocturnal hypoxia (Chronic) Right bundle branch block (Acute) Venous insufficiency (chronic) (peripheral) (Acute) Venous stasis (Acute) Chronic kidney disease, stage III (moderate) Depression GERD (gastroesophageal reflux disease) COPD (chronic obstructive pulmonary disease) HTN (hypertension) (Chronic) Pacemaker (Chronic) Medical History Cheilitis Panniculitis Candidal intertrigo Chronic respiratory failure with hypoxia, on home O2 therapy Renal colic Proctitis History of renal stent Pyelonephritis Nephrolithiasis 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) Syncope and collapse (06/03/13) Rectal abscess Vertigo Surgical History History of biopsy of temporal artery History of colonoscopy (~06/2010) History of dilation and curettage History of neurologic surgery rhizotomy History of appendectomy History of total abdominal hysterectomy Reports KERRI-BSO S/P knee replacement S/P cholecystectomy Family History Family/Other Hypertension Diabetes Cancer Adopted Heart disease Grandmother Diabetes Heart disease Grandfather Heart disease Aunt Cancer Uncle Cancer Other No pertinent family history in first degree relatives Social History Smoking Status: Unknown if ever smoked Second Hand Exposure: Yes; Do You Dip or Chew Tobacco: No; Preferred Language: Greenlandic Communication Ability: Effective Service Mechanic Required: No Beliefs That Will Affect Care: None marital status: / Current Living Situation: Residential Current Living Situation Comment: [facility] Other Information That Helps Us Care for You: No Feels Safe at Home: Yes Assistive Devices: CPAP and Oxygen - Continuous Review of Systems Review of Systems: Unobtainable due to cognitive status Physical Exam Physical Exam: General: somnolent, arousable, follows commands HEENT: NC/AT, PERRL, EOMI, anicteric sclera, conjunctiva without injection, external ear normal to inspection and nontender, nares patent, moist mucus membranes, dentition intact, no oropharyngeal lesions, neck supple, trachea midline, no LAD, no thyromegaly, no JVD Heart: +S1/S2, regular, no m/r/g Lungs: patient on BiPAP - coarse breath sounds anteriorly Abd: +BS, soft, NT/ND, no masses/organomegaly/ascites Ext: chronic skin changes, no infection Neuro: somnolent, arousable, follows commands Results & Data Results & Data Vital Signs (Past 12 Hours) Vital Signs Temp Pulse Pulse Resp BP BP Pulse Ox 03/17/24 02:18 37.2 C 03/17/24 01:54 69 22 124/77 03/17/24 01:41 73 28 H 93 03/17/24 01:24 73 28 H 142/79 H 03/17/24 00:47 76 31 H 92 03/17/24 00:03 74 32 H 147/76 H 91 03/16/24 23:59 73 03/16/24 23:52 37.8 C H 75 30 H 122/80 92 03/16/24 23:52 91 03/16/24 23:52 37.8 C H 76 34 H 122/80 91 03/16/24 23:52 O2 Del Method O2 Flow Rate FiO2 03/17/24 02:18 03/17/24 01:54 03/17/24 01:41 40 03/17/24 01:24 03/17/24 00:47 Oxymask 6 03/17/24 00:03 03/16/24 23:59 03/16/24 23:52 Oxymask 6 03/16/24 23:52 Room Air, Oxymask 03/16/24 23:52 Room Air 03/16/24 23:52 Oxymask 6 Laboratory Results Laboratory Results WBC 7.87 K/ul (4.8-10.8) 03/17/24 00:00 RBC 4.16 M/uL (4.20-5.40) L 03/17/24 00:00 Hgb 12.0 g/dl (12.0-16.0) 03/17/24 00:00 Hct 38.8 % (37.0-47.0) 03/17/24 00:00 MCV 93.3 fL (80.0-100.0) 03/17/24 00:00 MCH 28.8 pg (25.0-34.0) 03/17/24 00:00 MCHC 30.9 g/dL (32.0-36.0) L 03/17/24 00:00 RDW Std Deviation 46.8 fL (36.4-46.3) H 03/17/24 00:00 RDW Coeff of [place] 13.8 % (11.5-14.5) 03/17/24 00:00 Plt Count 166 K/uL (130-400) 03/17/24 00:00 MPV 10.2 fL (9.4-12.4) 03/17/24 00:00 Immature Gran % (Auto) 5.5 % 03/17/24 00:00 Neut % (Auto) 79.0 % 03/17/24 00:00 Lymph % (Auto) 10.9 % 03/17/24 00:00 [place] % (Auto) 3.7 % 03/17/24 00:00 Eos % (Auto) 0.4 % 03/17/24 00:00 Baso % (Auto) 0.5 % 03/17/24 00:00 Neut # (Auto) 6.22 K/uL (1.40-6.50) 03/17/24 00:00 Lymph # (Auto) 0.86 K/uL (1.20-3.40) L 03/17/24 00:00 [place] # (Auto) 0.29 K/uL (0.11-0.59) 03/17/24 00:00 Eos # (Auto) 0.03 K/uL (0.00-0.50) 03/17/24 00:00 Baso # (Auto) 0.04 K/uL (0.00-0.20) 03/17/24 00:00 Immature Gran # (Auto) 0.43 K/uL (0.01-0.20) H 03/17/24 00:00 Absolute Nucleated RBC 0.02 K/uL (0.00-0.12) 03/17/24 00:00 Nucleated RBC % (auto) 0.3 % 03/17/24 00:00 RBC Morphology Unremarkable 03/17/24 00:00 VBG pH 7.36 (7.36-7.41) 03/17/24 02:56 VBG pCO2 78 mmHg (38-50) H 03/17/24 02:56 VBG pO2 53 mmHg 03/17/24 02:56 VBG HCO3 44 mmol/L 03/17/24 02:56 VBG O2 Saturation 86.4 % 03/17/24 02:56 VBG Base Excess 14.7 mEq/L 03/17/24 02:56 Sodium 141 mmol/L (136-145) 03/17/24 00:00 Potassium 4.1 mmol/L (3.5-5.1) 03/17/24 00:00 Chloride 93 mmol/L (98-107) L 03/17/24 00:00 Carbon Dioxide 42 mmol/L (21-32) H* 03/17/24 00:00 Anion Gap 6 (3-11) 03/17/24 00:00 BUN 17 mg/dl (6-23) 03/17/24 00:00 Creatinine 0.80 mg/dl (0.6-1.2) 03/17/24 00:00 Est Cr Clr Drug Dosing 89.6 ml/min 03/17/24 00:00 eGFR 75.37 03/17/24 00:00 BUN/Creatinine Ratio 21.3 (10-20) H 03/17/24 00:00 Glucose 189 mg/dl (70-99(Fasting)) H 03/17/24 00:00 Lactate 1.2 mmol/L (0.4-2.0) 03/17/24 00:50 Calcium 8.8 mg/dl (8.6-10.3) 03/17/24 00:00 Magnesium 1.5 mg/dl (1.7-2.4) L 03/17/24 00:00 Total Bilirubin 0.4 mg/dl (0.2-1.0) 03/17/24 00:00 Direct Bilirubin 0.1 mg/dl (0-0.2) 03/17/24 00:00 AST 15 U/L (13-39) 03/17/24 00:00 ALT 21 U/L (7-52) 03/17/24 00:00 Alkaline Phosphatase 60 U/L (34-104) 03/17/24 00:00 Troponin I High Sens 48.5 pg/ml (0-14) H 03/17/24 02:56 Total Protein 6.2 gm/dl (6.0-8.3) 03/17/24 00:00 Albumin 3.2 gm/dl (3.4-5.0) L 03/17/24 00:00 Procalcitonin 0.10 ng/ml (0-0.5) 03/17/24 00:00 Urine Color Yellow 03/17/24 02:28 Urine Appearance Clear (Clear) 03/17/24 02:28 Urine pH 5.5 (4.5-7.5) 03/17/24 02:28 Ur Specific [place] 1.025 (1.000-1.030) 03/17/24 02:28 Urine Protein 1+ (Negative) H 03/17/24 02:28 Urine Glucose (UA) Negative (Negative) 03/17/24 02:28 Urine Ketones Trace (Negative) H 03/17/24 02:28 Urine Blood 1+ (Negative) H 03/17/24 02:28 Urine Nitrite Negative (Negative) 03/17/24 02:28 Urine Bilirubin Negative (Negative) 03/17/24 02:28 Urine Urobilinogen Negative (Negative) 03/17/24 02:28 Ur Leukocyte Esterase 1+ (Negative) H 03/17/24 02:28 Urine WBC (Auto) 21-50 /hpf (0-5) H 03/17/24 02:28 Urine RBC (Auto) 11-20 /hpf (0-2) H 03/17/24 02:28 U Hyaline Cast (Auto) 6-10 /lpf (0-2) H 03/17/24 02:28 U Epithel Cells (Auto) 3-5 /hpf (0-2) H 03/17/24 02:28 Urine Bacteria (Auto) None Seen (None Seen) 03/17/24 02:28 Adenovirus (PCR) Not Detected (NotDetected) 03/17/24 00:50 B. pertussis DNA (PCR) Not Detected (NotDetected) 03/17/24 00:50 B.parapertussis DNA PCR Not Detected (NotDetected) 03/17/24 00:50 C. pneumoniae DNA (PCR) Not Detected (NotDetected) 03/17/24 00:50 Coronavirus OC43 (PCR) Not Detected (NotDetected) 03/17/24 00:50 Coronavirus HKU1 (PCR) Not Detected (NotDetected) 03/17/24 00:50 Coronavirus 229E (PCR) Not Detected (NotDetected) 03/17/24 00:50 SARS-CoV-2 (PCR) DETECTED (NotDetected) A 03/17/24 00:50 Coronavirus NL63 (PCR) Not Detected (NotDetected) 03/17/24 00:50 Human Metapneumovir PCR Not Detected (NotDetected) 03/17/24 00:50 Influenza Type A (PCR) Not Detected (NotDetected) 03/17/24 00:50 Influenza Type B (PCR) Not Detected (NotDetected) 03/17/24 00:50 M. pneumoniae (PCR) Not Detected (NotDetected) 03/17/24 00:50 Parainfluenza 1 (PCR) Not Detected (NotDetected) 03/17/24 00:50 Parainfluenza 2 (PCR) Not Detected (NotDetected) 03/17/24 00:50 Parainfluenza 3 (PCR) Not Detected (NotDetected) 03/17/24 00:50 Parainfluenza 4 (PCR) Not Detected (NotDetected) 03/17/24 00:50 RSV (PCR) Not Detected (NotDetected) 03/17/24 00:50 Entero/Rhino (PCR) Not Detected (NotDetected) 03/17/24 00:50 Impressions Chest X-Ray 03/17/24 00:39 EXAM: XR chest 1V portable CLINICAL HISTORY: SEPSIS BEST POSSIBLE IMAGES WTW TECHNIQUE: An X-ray image of the chest is obtained in AP projection. COMPARISON: Previous X-ray dated 03/11/2024. FINDINGS: Pulmonary Parenchyma: Prominent bronchovascular markings, likely related to pulmonary congestion. Left CPA is obliterated by the enlarged heart and adjacent opacity, right is free. Left lower zone opacity, could be infection, or more evaluation as clinically indicated. Left sided cardiac pacemaker in place. Heart and Mediastinum: There is cardiomegaly. Bony Thorax: Bony thorax appears intact without fractures or deformities. Soft Tissues: Soft tissues overlying the chest wall are unremarkable. IMPRESSION: 1. There is cardiomegaly, along with Prominent bronchovascular markings, denoting pulmonary congestion. (Stable). 2. A stable Left lower lobe opacity, for more evaluation. 3. Normal chest X-ray. No acute cardiopulmonary abnormalities are identified. Electronically signed by Love Fernandez 03-17-2024 03:47 AM Chest CTA 03/17/24 01:29 EXAM: CT angio chest PE protocol CLINICAL HISTORY: Pt. presents to the ED from [facility]. Facility reports Pt. was just discharged from the hospital due to Uti/Sepsis two days ago. Pt has been SOB, weak and more lethargoc than normal. Pt. is A Ox4. Facility reports decreased MS and has been shakey. EMS reports O2 was 82 when arrived to facilty. Rhonci heard. Moist non-productive cough noted. 101 ml opti 320 PW/GS TECHNIQUE: Spiral axial continuous cuts were taken through the chest with multiplanar reformatting and with intravenous administration of contrast material (Pulmonary embolism protocol). One of the following dose reduction techniques was utilized for this exam.Automated exposure control, adjustment of the mA and/or kV according to patient size, and use of iterative reconstruction. One of these 3D techniques was utilized: Maximum Intensity Pixel (MIP), 3D Reconstructed Images, Volume Rendered Images, Surface Shaded Rendering. COMPARISON: CR 03/11/[address] 05/22/2023 FINDINGS: The main pulmonary trunk is dilated measuring 42 mm, the main pulmonary artereis are also dilated. The pulmonary trunk, right and left pulmonary arteries show adequate opacification with contrast. No evidence of intraluminal filling defects impressive of pulmonary embolism, no evidence of mural calcification or aneurismal dilatation. There is consolidation/collapse involves the left lower lung lobe, shows cavitary changes and associated with volume loss, causing shift of the heart and mediastinal structures to the left side. There is a calcified lung nodule at the right upper lobe measuring 7 mm. The rest of both lungs are clear with no parenchymal or interstitial lesion. No evidence of nodules, masses or consolidation. The vascular pattern appears normal with no evidence of bronchovascular distortion. Few calcified mediastinal lymph jeff enlargement. Cardiomegaly is noted with no pericardial effusion. There is minimal pleural thickening, yet no significant effusion. The visualized chest wall and axillary spaces display normal appearance. Bone window settings showed degenerative changes of the thoracic spine, no evidence of destructive bony lesions. Scanned upper abdominal cuts are unremarkable. IMPRESSION: 1. Pulmonary arterial hypertension. 2. No evidence of pulmonary embolism. 3. Left lower lung lobe consolidation/collapse. A stable finding since the last CR and a new finding since the last CT study. 4. Right upper lung lobe calcified nodule and calcified lymph nodes likely old granuloma. 5. Cardiomegaly. Electronically signed by Love Fernandez 03-17-2024 04:26 AM Code Status & VTE Plan VTE Prophylaxis Plan VTE Prophylaxis will be ordered: Yes PG Care Time/CCT Total # of Minutes Spent Total Time Spent with Patient: Total time spent is greater than 50% in coordination of care (as documented) at patient's floor/unit and/or counseling patient: Coding Level of Care Code 62407 INT INP/OBS CARE 3/75MIN Diagnoses COVID U07.1 Metabolic encephalopathy G93.41
--- NOTE | 2024-03-17 03:07 | Emergency Department Note ---
Impression & Plan Acute and chronic respiratory failure with hypercapnia ED Provider Note CHIEF COMPLAINT: Respiratory failure HISTORY OF PRESENT ILLNESS: This 78-year-old female patient past medical history of morbid obesity, diabetes mellitus, recurrent UTI with recent hospitalization due to ESBL E. coli, congestive heart failure, COPD, renal failure, chronic kidney disease presents to the emergency department with complaints of decreased mental status and hypoxia per staff at her nursing facility. The patient was just discharged there several days ago after her hospitalization. She was apparently on Zosyn in the hospital and transition to Augmentin prior to discharge. REVIEW OF SYSTEMS: A review of systems was performed with positives and pertinent negatives listed in the history of present illness. 10 systems were reviewed and are otherwise negative. ALLERGIES: see below MEDICATIONS: see below PMH: see below SOCIAL HISTORY: see below DDx: UTI, pneumonia, aspiration, congestive heart failure, metabolic encephalopathy, PE among others PHYSICAL EXAM: Vital signs reviewed. General: Chronically ill-appearing 78-year-old female, HEENT: No scleral icterus, PERRLA, neck supple. Atraumatic. Cardiovascular: Regular rate and rhythm, no extra sounds. Pulmonary: Clear to auscultation bilaterally, normal work of breathing. oxy mask at 6 L/min in place. Abdomen: Soft, nontender, nondistended, positive bowel sounds. Musculoskeletal: Atraumatic, Minimal peripheral edema. Neurologic: Patient awake Somnolent but arousable, answers simple questions. Skin: Warm, dry, no rash EMERGENCY DEPARTMENT COURSE/MDM: This patient was evaluated and appeared to be in no significant distress. IV access was obtained and laboratory work was drawn. The patient was placed on the environmental monitoring technician and noted to be in a paced rhythm. Vital signs remained stable, patient was slightly hypertensive. Chest x-ray reveals a poor inspiratory effort with a pacemaker in place. There no significant infiltrative changes. Patient was placed on BiPAP due to hypoxia, hypercapnia and need for respiratory support. CT imaging of the chest was performed to rule out pulmonary embolus. This study is significant for pulmonary arterial hypertension but no evidence of PE. There are some chronic consolidation of the left lower lung. Patient's laboratory work reveals a slight elevation of the troponin and hypercarbia on ABG. UA is concerning for infection and will be sent for cx. IV meropenem was administered d/t h/o of recent ESBL infection. Patient's case was discussed with the hospitalist service to evaluate the patient for admission and further management. MONITORING: An order for cardiac monitoring was placed and the patient is noted to be in a paced rhythm at 87 beats per minute. RADIOLOGY: chest x-ray to my interpretation reveals poor inspiratory effort, cardiomegaly with poorly visualized left lung field, pacemaker in place. CT angio chest: IMPRESSION: 1. Pulmonary arterial hypertension. 2. No evidence of pulmonary embolism. 3. Left lower lung lobe consolidation/collapse. A stable finding since the last CR and a new finding since the last CT study. 4. Right upper lung lobe calcified nodule and calcified lymph nodes likely old granuloma. 5. Cardiomegaly. EKG: To my interpretation reveals an atrially sensed and ventricularly paced rhythm at 81 bpm. QTc of 518. Some artifact appreciated. DISPOSITION: Admission Past Med/Surg History Problem List (Updated 03/20/24 @ 17:54 by Rosa Berry MD) Multifocal pneumonia Chronic combined systolic and diastolic CHF (congestive heart failure) Respiratory failure with hypoxia and hypercapnia Hypochloremia Sterile pyuria Metabolic encephalopathy COVID Trigeminal neuralgia Hyperglycemia due to diabetes mellitus Acute hyperglycemia (Acute) Altered mental state (Acute) Acute dehydration (Acute) Acute UTI (Acute) CMC arthritis Carpal tunnel syndrome, left Idiopathic polyneuropathy Elevated brain natriuretic peptide (BNP) level (Acute) Elevated troponin (Acute) Acute respiratory failure with hypoxia and hypercapnia Acute respiratory failure with hypoxia Hyperkalemia (Acute) Recent urinary tract infection Urinary retention with incomplete bladder emptying Mixed stress and urge urinary incontinence Dry skin dermatitis HFrEF (heart failure with reduced ejection fraction) (HFpEF) heart failure with preserved ejection fraction COPD (chronic obstructive pulmonary disease) ARF (acute renal failure) Infection due to ESBL-producing Escherichia coli Urinary incontinence Hypokalemia Pneumonia Elevated troponin Respiratory distress (Acute) CHF (congestive heart failure) (Acute) Somnolence (Acute) Leukocytosis (Acute) Elevated CO2 level (Acute) Acute and chronic respiratory failure with hypercapnia (Acute) UTI (urinary tract infection) Anxiety with depression Hyperlipidemia Subcutaneous abscess (Acute) Cellulitis of female genitalia (Acute) Pneumonia due to 2019 novel coronavirus (Acute) Acute exacerbation of chronic obstructive pulmonary disease (Acute) Infection of lip COVID-19 Eczema Shoulder pain Urinary incontinence Diabetes (Acute) 1st degree AV block (Acute) Anxiety (Acute) Atrial paroxysmal tachycardia (Acute) Generalized osteoarthrosis, unspecified site (Acute) LAFB (left anterior fascicular block) (Acute) Mild obstructive sleep apnea (Acute) Morbid obesity (Acute) Nocturnal hypoxia (Chronic) Right bundle branch block (Acute) Venous insufficiency (chronic) (peripheral) (Acute) Venous stasis (Acute) Chronic kidney disease, stage III (moderate) Depression GERD (gastroesophageal reflux disease) COPD (chronic obstructive pulmonary disease) HTN (hypertension) (Chronic) Pacemaker (Chronic) Medical History Cheilitis Panniculitis Candidal intertrigo Chronic respiratory failure with hypoxia, on home O2 therapy Renal colic Proctitis History of renal stent Pyelonephritis Nephrolithiasis 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) Syncope and collapse (06/03/13) Rectal abscess Vertigo Surgical History History of biopsy of temporal artery History of colonoscopy (~06/2010) History of dilation and curettage History of neurologic surgery rhizotomy History of appendectomy History of total abdominal hysterectomy Reports KERRI-BSO S/P knee replacement S/P cholecystectomy Family History Family/Other Hypertension Diabetes Cancer Adopted Heart disease Grandmother Diabetes Heart disease Grandfather Heart disease Aunt Cancer Uncle Cancer Other No pertinent family history in first degree relatives Social History Smoking Status: Unknown if ever smoked Second Hand Exposure: Yes; Do You Dip or Chew Tobacco: No; Preferred Language: Frisian Communication Ability: Effective Medical Office Secretary Required: No Beliefs That Will Affect Care: None marital status: / Current Living Situation: [facility] Current Living Situation Comment: Lives at [facility] Other Information That Helps Us Care for You: No Feels Safe at Home: Yes Assistive Devices: Mechanical Lift and Wheelchair Allergies Allergies Allergy/AdvReac Type Severity Reaction Status Date / Time chocolate flavor Allergy Intermediate Headache Verified 02/20/24 14:30 erythromycin base Allergy Intermediate CONFUSION, Verified 02/20/24 14:30 HEADACHE nitrofurantoin Allergy Intermediate 15 Verified 02/20/24 14:30 different symptoms Home Meds Home Medications Medication Instructions Recorded Confirmed acetaminophen 500 mg tablet 1,000 mg PO Q8H PRN fever/pain 02/07/23 03/17/24 (Tylenol Extra Strength) levothyroxine 50 mcg tablet 50 mcg PO DAILY 02/07/23 03/17/24 bisacodyl 10 mg rectal suppository 10 mg NV DAILY PRN Constipation 05/22/23 03/17/24 (Dulcolax (bisacodyl)) fluticasone propionate 50 2 spray intranasal QAM 05/22/23 03/17/24 mcg/actuation nasal spray,suspension guaifenesin 600 mg tablet, 600 mg PO Q12H 05/22/23 03/17/24 extended release 12 hr (Mucinex) insulin glargine 100 unit/mL 35 unit subcut AMHS 05/22/23 03/17/24 subcutaneous solution (Lantus U-100 Insulin) insulin lispro 100 unit/mL 1 sliding scale dose subcut 05/22/23 03/17/24 subcutaneous solution (Humalog USEASDIRECTD U-100 Insulin) ipratropium 0.5 mg-albuterol 3 mg 3 ml inhalation Q2H PRN 05/22/23 03/17/24 (2.5 mg base)/3 mL nebulization SOB/wheezing soln ipratropium 0.5 mg-albuterol 3 mg 3 ml inhalation QID 05/22/23 03/17/24 (2.5 mg base)/3 mL nebulization soln lorazepam 0.5 mg tablet 0.25 mg PO DAILY PRN Anxiety 05/22/23 03/17/24 menthol 4 % topical gel (Biofreeze 1 applic topical Q8H PRN Pain 05/22/23 03/17/24 (menthol)) sodium phosphates 19 gram-7 118 ml NV DAILY PRN Constipation 05/22/23 03/17/24 gram/118 mL enema (Fleet Enema) Saccharomyces boulardii 250 mg 250 mg PO AMHS 03/12/24 03/17/24 capsule (Florastor) buspirone 15 mg tablet 15 mg PO TID 03/12/24 03/17/24 calcium carbonate 1,000 mg PO Q6 PRN Indigestion 03/12/24 03/17/24 divalproex 250 mg tablet,delayed 250 mg PO BID 03/12/24 03/17/24 release fluticasone fur. 200 mcg-umeclid 1 inh inhalation QAM 03/12/24 03/17/24 62.5 mcg-vilant 25 mcg inhalat.powder (Trelegy Ellipta) furosemide 40 mg tablet 40 mg PO BID 03/12/24 03/17/24 gabapentin 300 mg capsule 600 mg PO TID 03/12/24 03/17/24 polyethylene glycol 3350 17 17 g PO AMHS 03/12/24 03/17/24 gram/dose oral powder (Miralax) potassium chloride 10 mEq 10 meq PO QAM 03/12/24 03/17/24 tablet,extended release(part/cryst) prednisone 5 mg tablet 5 mg PO QAM 03/12/24 03/17/24 simethicone 80 mg chewable tablet 160 mg PO AMHS 03/12/24 03/17/24 tramadol 50 mg tablet 50 mg PO Q6 PRN pain 9-10 03/12/24 03/17/24 triamcinolone acetonide 0.1 % 1 applic topical BID 03/12/24 03/17/24 topical cream venlafaxine 75 mg tablet,extended 225 mg PO QAM 03/12/24 03/17/24 release 24 hr nystatin 100,000 unit/gram topical 1 applic topical BID 03/17/24 03/17/24 powder (Nyamyc) Previous Rx's Medication Instructions Recorded pen needle, diabetic 31 gauge x #100 ea 06/11/2109/14" (Comfort EZ Pen [place]) atorvastatin 10 mg tablet 10 mg PO 3XWK #36 tabs 09/29/21 omeprazole 20 mg capsule,delayed 20 mg PO QAM #90 caps 10/21/21 release carvedilol 3.125 mg tablet 3.125 mg PO BIDM #30 tabs 05/26/23 amoxicillin 875 mg-potassium 1 tab PO BID #14 tabs 03/14/24 clavulanate 125 mg tablet Results & Data (ED) Vital Signs Vital Signs - 24 hr 03/16/24 23:52 03/16/24 23:52 03/16/24 23:52 Temperature 37.8 C H Temperature Source Oral Pulse Rate 76 Pulse Rate [Apical] Pulse Rhythm Regular Pulse Rhythm [Apical] Pulse Strength Normal Pulse Strength [Apical] Respiratory Rate 34 H Respiratory Effort / Characteristics Non-Labored Spontaneous Non-Labored Spontaneous Respiratory Depth Normal Normal Respiratory Pattern Regular Regular Blood Pressure 122/80 Blood Pressure [Right Arm] Blood Pressure Mean 94 Blood Pressure Mean [Right Arm] Pulse Oximetry 91 91 Oxygen Delivery Method Oxymask Room Air Room Air Oxymask Oxygen Flow Rate 6 Fraction of Inspired Oxygen Sepsis Recent Fever Within 48 Hours Yes Sepsis New/Unexplained Change in Mental Status Yes Sepsis Action Taken by Nursing No Action Required Oxygen Flow Rate - Titration 6 Pulse Oximetry Post Tiitration 92 03/16/24 23:52 03/16/24 23:59 03/17/24 00:03 Temperature 37.8 C H Temperature Source Oral Pulse Rate 73 74 Pulse Rate [Apical] 75 Pulse Rhythm Pulse Rhythm [Apical] Regular Pulse Strength Pulse Strength [Apical] Normal Respiratory Rate 30 H 32 H Respiratory Effort / Characteristics Non-Labored Spontaneous Respiratory Depth Normal Respiratory Pattern Regular Blood Pressure 147/76 H Blood Pressure [Right Arm] 122/80 Blood Pressure Mean 99 Blood Pressure Mean [Right Arm] 94 Pulse Oximetry 92 91 Oxygen Delivery Method Oxymask Oxygen Flow Rate 6 Fraction of Inspired Oxygen Sepsis Recent Fever Within 48 Hours Sepsis New/Unexplained Change in Mental Status Sepsis Action Taken by Nursing Oxygen Flow Rate - Titration Pulse Oximetry Post Tiitration 03/17/24 00:47 03/17/24 01:24 03/17/24 01:41 Temperature Temperature Source Pulse Rate 76 73 73 Pulse Rate [Apical] Pulse Rhythm Regular Pulse Rhythm [Apical] Pulse Strength Pulse Strength [Apical] Respiratory Rate 31 H 28 H 28 H Respiratory Effort / Characteristics Spontaneous Respiratory Depth Normal Respiratory Pattern Regular Blood Pressure 142/79 H Blood Pressure [Right Arm] Blood Pressure Mean 100 Blood Pressure Mean [Right Arm] Pulse Oximetry 92 93 Oxygen Delivery Method Oxymask Oxygen Flow Rate 6 Fraction of Inspired Oxygen 40 Sepsis Recent Fever Within 48 Hours Sepsis New/Unexplained Change in Mental Status Sepsis Action Taken by Nursing Oxygen Flow Rate - Titration Pulse Oximetry Post Tiitration 03/17/24 01:54 03/17/24 02:18 Temperature 37.2 C Temperature Source Oral Pulse Rate 69 Pulse Rate [Apical] Pulse Rhythm Pulse Rhythm [Apical] Pulse Strength Pulse Strength [Apical] Respiratory Rate 22 Respiratory Effort / Characteristics Respiratory Depth Respiratory Pattern Blood Pressure 124/77 Blood Pressure [Right Arm] Blood Pressure Mean 92 Blood Pressure Mean [Right Arm] Pulse Oximetry Oxygen Delivery Method Oxygen Flow Rate Fraction of Inspired Oxygen Sepsis Recent Fever Within 48 Hours Sepsis New/Unexplained Change in Mental Status Sepsis Action Taken by Nursing Oxygen Flow Rate - Titration Pulse Oximetry Post Tiitration Home Medications Current Medication List: was personally reviewed by me Laboratory Data Attestation: I reviewed the patient's lab results. 03/19/24 10:57 03/20/24 06:00 Lab Results 03/17/24 03/17/24 03/17/24 Range/Units 00:00 00:50 01:49 WBC 7.87 (4.8-10.8) K/ul RBC 4.16 L (4.20-5.40) M/uL Hgb 12.0 (12.0-16.0) g/dl Hct 38.8 (37.0-47.0) % MCV 93.3 (80.0-100.0) fL MCH 28.8 (25.0-34.0) pg MCHC 30.9 L (32.0-36.0) g/dL RDW Std Deviation 46.8 H (36.4-46.3) fL RDW Coeff of Iman 13.8 (11.5-14.5) % Plt Count 166 (130-400) K/uL MPV 10.2 (9.4-12.4) fL Immature Gran % (Auto) 5.5 % Neut % (Auto) 79.0 % Lymph % (Auto) 10.9 % Hitchcock % (Auto) 3.7 % Eos % (Auto) 0.4 % Baso % (Auto) 0.5 % Neut # (Auto) 6.22 (1.40-6.50) K/uL Lymph # (Auto) 0.86 L (1.20-3.40) K/uL Hitchcock # (Auto) 0.29 (0.11-0.59) K/uL Eos # (Auto) 0.03 (0.00-0.50) K/uL Baso # (Auto) 0.04 (0.00-0.20) K/uL Immature Gran # (Auto) 0.43 H (0.01-0.20) K/uL Absolute Nucleated RBC 0.02 (0.00-0.12) K/uL Nucleated RBC % (auto) 0.3 % RBC Morphology Unremarkable VBG pH 7.43 H (7.36-7.41) VBG pCO2 68 H (38-50) mmHg VBG pO2 60 mmHg VBG HCO3 45 mmol/L VBG O2 Saturation 91.1 % VBG Base Excess 17.1 mEq/L Sodium 141 (136-145) mmol/L Potassium 4.1 (3.5-5.1) mmol/L Chloride 93 L (98-107) mmol/L Carbon Dioxide 42 H* (21-32) mmol/L Anion Gap 6 (3-11) BUN 17 (6-23) mg/dl Creatinine 0.80 (0.6-1.2) mg/dl Est Cr Clr Drug Dosing 89.6 ml/min eGFR 75.37 BUN/Creatinine Ratio 21.3 H (10-20) Glucose 189 H (70-99(Fasting)) mg/dl Lactate 1.2 (0.4-2.0) mmol/L Calcium 8.8 (8.6-10.3) mg/dl Magnesium 1.5 L (1.7-2.4) mg/dl Total Bilirubin 0.4 (0.2-1.0) mg/dl Direct Bilirubin 0.1 (0-0.2) mg/dl AST 15 (13-39) U/L ALT 21 (7-52) U/L Alkaline Phosphatase 60 (34-104) U/L Troponin I High Sens 44.1 H (0-14) pg/ml Total Protein 6.2 (6.0-8.3) gm/dl Albumin 3.2 L (3.4-5.0) gm/dl Procalcitonin 0.10 (0-0.5) ng/ml Urine Color Urine Appearance (Clear) Urine pH (4.5-7.5) Ur Specific [place] (1.000-1.030) Urine Protein (Negative) Urine Glucose (UA) (Negative) Urine Ketones (Negative) Urine Blood (Negative) Urine Nitrite (Negative) Urine Bilirubin (Negative) Urine Urobilinogen (Negative) Ur Leukocyte Esterase (Negative) Urine WBC (Auto) (0-5) /hpf Urine RBC (Auto) (0-2) /hpf U Hyaline Cast (Auto) (0-2) /lpf U Epithel Cells (Auto) (0-2) /hpf Urine Bacteria (Auto) (None Seen) Adenovirus (PCR) Not Detected (NotDetected) B. pertussis DNA (PCR) Not Detected (NotDetected) B.parapertussis DNA PCR Not Detected (NotDetected) C. pneumoniae DNA (PCR) Not Detected (NotDetected) Coronavirus OC43 (PCR) Not Detected (NotDetected) Coronavirus HKU1 (PCR) Not Detected (NotDetected) Coronavirus 229E (PCR) Not Detected (NotDetected) SARS-CoV-2 (PCR) DETECTED A (NotDetected) Coronavirus NL63 (PCR) Not Detected (NotDetected) Human Metapneumovir PCR Not Detected (NotDetected) Influenza Type A (PCR) Not Detected (NotDetected) Influenza Type B (PCR) Not Detected (NotDetected) M. pneumoniae (PCR) Not Detected (NotDetected) Parainfluenza 1 (PCR) Not Detected (NotDetected) Parainfluenza 2 (PCR) Not Detected (NotDetected) Parainfluenza 3 (PCR) Not Detected (NotDetected) Parainfluenza 4 (PCR) Not Detected (NotDetected) RSV (PCR) Not Detected (NotDetected) Entero/Rhino (PCR) Not Detected (NotDetected) 03/17/24 Range/Units 02:28 WBC (4.8-10.8) K/ul RBC (4.20-5.40) M/uL Hgb (12.0-16.0) g/dl Hct (37.0-47.0) % MCV (80.0-100.0) fL MCH (25.0-34.0) pg MCHC (32.0-36.0) g/dL RDW Std Deviation (36.4-46.3) fL RDW Coeff of Iman (11.5-14.5) % Plt Count (130-400) K/uL MPV (9.4-12.4) fL Immature Gran % (Auto) % Neut % (Auto) % Lymph % (Auto) % [place] % (Auto) % Eos % (Auto) % Baso % (Auto) % Neut # (Auto) (1.40-6.50) K/uL Lymph # (Auto) (1.20-3.40) K/uL [place] # (Auto) (0.11-0.59) K/uL Eos # (Auto) (0.00-0.50) K/uL Baso # (Auto) (0.00-0.20) K/uL Immature Gran # (Auto) (0.01-0.20) K/uL Absolute Nucleated RBC (0.00-0.12) K/uL Nucleated RBC % (auto) % RBC Morphology VBG pH (7.36-7.41) VBG pCO2 (38-50) mmHg VBG pO2 mmHg VBG HCO3 mmol/L VBG O2 Saturation % VBG Base Excess mEq/L Sodium (136-145) mmol/L Potassium (3.5-5.1) mmol/L Chloride (98-107) mmol/L Carbon Dioxide (21-32) mmol/L Anion Gap (3-11) BUN (6-23) mg/dl Creatinine (0.6-1.2) mg/dl Est Cr Clr Drug Dosing ml/min eGFR BUN/Creatinine Ratio (10-20) Glucose (70-99(Fasting)) mg/dl Lactate (0.4-2.0) mmol/L Calcium (8.6-10.3) mg/dl Magnesium (1.7-2.4) mg/dl Total Bilirubin (0.2-1.0) mg/dl Direct Bilirubin (0-0.2) mg/dl AST (13-39) U/L ALT (7-52) U/L Alkaline Phosphatase (34-104) U/L Troponin I High Sens (0-14) pg/ml Total Protein (6.0-8.3) gm/dl Albumin (3.4-5.0) gm/dl Procalcitonin (0-0.5) ng/ml Urine Color Yellow Urine Appearance Clear (Clear) Urine pH 5.5 (4.5-7.5) Ur Specific [place] 1.025 (1.000-1.030) Urine Protein 1+ H (Negative) Urine Glucose (UA) Negative (Negative) Urine Ketones Trace H (Negative) Urine Blood 1+ H (Negative) Urine Nitrite Negative (Negative) Urine Bilirubin Negative (Negative) Urine Urobilinogen Negative (Negative) Ur Leukocyte Esterase 1+ H (Negative) Urine WBC (Auto) 21-50 H (0-5) /hpf Urine RBC (Auto) 11-20 H (0-2) /hpf U Hyaline Cast (Auto) 6-10 H (0-2) /lpf U Epithel Cells (Auto) 3-5 H (0-2) /hpf Urine Bacteria (Auto) None Seen (None Seen) Adenovirus (PCR) (NotDetected) B. pertussis DNA (PCR) (NotDetected) B.parapertussis DNA PCR (NotDetected) C. pneumoniae DNA (PCR) (NotDetected) Coronavirus OC43 (PCR) (NotDetected) Coronavirus HKU1 (PCR) (NotDetected) Coronavirus 229E (PCR) (NotDetected) SARS-CoV-2 (PCR) (NotDetected) Coronavirus NL63 (PCR) (NotDetected) Human Metapneumovir PCR (NotDetected) Influenza Type A (PCR) (NotDetected) Influenza Type B (PCR) (NotDetected) M. pneumoniae (PCR) (NotDetected) Parainfluenza 1 (PCR) (NotDetected) Parainfluenza 2 (PCR) (NotDetected) Parainfluenza 3 (PCR) (NotDetected) Parainfluenza 4 (PCR) (NotDetected) RSV (PCR) (NotDetected) Entero/Rhino (PCR) (NotDetected) Administered Medications Acetaminophen (Acetaminophen 500 Mg Tab) 1,000 mg PO Q8H PRN PRN Reason: fever/pain Stop: 04/16/24 05:00 Last Admin: 03/17/24 15:27 Dose: 1,000 mg Documented By: MIKY Albuterol (Albuterol Hfa 8 Gm Inhaler) 2 puffs INH Q4RWA TERI Stop: 04/16/24 10:59 Last Admin: 03/20/24 15:27 Dose: 2 puffs Documented By: Admin: 03/20/24 11:25 Dose: 2 puffs Documented By: Admin: 03/20/24 07:35 Dose: 2 puffs Documented By: Admin: 03/19/24 20:12 Dose: 2 puffs Documented By: Admin: 03/19/24 15:28 Dose: 2 puffs Documented By: Admin: 03/19/24 11:24 Dose: 2 puffs Documented By: [id number] Admin: 03/19/24 07:22 Dose: 2 puffs Documented By: Admin: 03/18/24 19:40 Dose: 2 puffs Documented By: Admin: 03/18/24 17:55 Dose: 2 puffs Documented By: Admin: 03/18/24 15:24 Dose: 2 puffs Documented By: Admin: 03/18/24 11:16 Dose: 2 puffs Documented By: Admin: 03/18/24 07:20 Dose: 2 puffs Documented By: Admin: 03/17/24 19:25 Dose: 2 puffs Documented By: Admin: 03/17/24 14:06 Dose: 2 puffs Documented By: Admin: 03/17/24 11:24 Dose: 2 puffs Documented By: TENZIN Buspirone HCl (Buspirone 15 Mg Tab) 15 mg PO TID TERI Stop: 04/16/24 08:59 Last Admin: 03/20/24 13:12 Dose: 15 mg Documented By: Admin: 03/20/24 08:46 Dose: 15 mg Documented By: Admin: 03/19/24 20:14 Dose: 15 mg Documented By: Admin: 03/19/24 12:58 Dose: 15 mg Documented By: Admin: 03/19/24 08:05 Dose: 15 mg Documented By: Admin: 03/18/24 20:46 Dose: 15 mg Documented By: MMIvania Admin: 03/18/24 13:29 Dose: 15 mg Documented By: Admin: 03/18/24 07:43 Dose: 15 mg Documented By: Admin: 03/17/24 20:22 Dose: 15 mg Documented By: Admin: 03/17/24 14:40 Dose: 15 mg Documented By: Admin: 03/17/24 07:54 Dose: 15 mg Documented By: MIKY Carvedilol (Carvedilol 3.125 Mg Tab) 3.125 mg PO BIDM TERI Stop: 04/18/24 18:59 Last Admin: 03/20/24 08:46 Dose: 3.125 mg Documented By: Admin: 03/19/24 20:12 Dose: 3.125 mg Documented By: LMP Divalproex Sodium (Divalproex Delay Release 250 Mg Tabec) 250 mg PO BID TERI Stop: 04/16/24 08:59 Last Admin: 03/20/24 08:46 Dose: 250 mg Documented By: Admin: 03/19/24 20:13 Dose: 250 mg Documented By: Admin: 03/19/24 08:06 Dose: 250 mg Documented By: Admin: 03/18/24 20:46 Dose: 250 mg Documented By: MMIvania Admin: 03/18/24 07:42 Dose: 250 mg Documented By: Admin: 03/17/24 20:21 Dose: 250 mg Documented By: Admin: 03/17/24 07:53 Dose: 250 mg Documented By: MIKY Enoxaparin Sodium (Enoxaparin Inj 40 Mg/0.4 Ml Syr) 40 mg SQ QAM TERI Stop: 04/16/24 08:59 Last Admin: 03/20/24 08:48 Dose: 40 mg Documented By: Admin: 03/19/24 08:05 Dose: 40 mg Documented By: Admin: 03/18/24 07:43 Dose: 40 mg Documented By: Admin: 03/17/24 07:54 Dose: 40 mg Documented By: MIKY Fluticasone Furoate (Fluticasone Furoate 200mcg 14 Puffs/Inhaler) 1 puffs INH DAILY ON LICENSE OF [facility] Stop: 04/16/24 08:59 Last Admin: 03/20/24 08:47 Dose: 1 puffs Documented By: Admin: 03/19/24 08:07 Dose: 1 puffs Documented By: Admin: 03/18/24 07:43 Dose: 1 puffs Documented By: Admin: 03/17/24 07:55 Dose: 1 puffs Documented By: MIKY Fluticasone Propionate (Fluticasone Propionate Na Spr 16 Gm Btl) 2 sprays NA QAM TERI Stop: 04/16/24 08:59 Last Admin: 03/20/24 08:47 Dose: 2 sprays Documented By: Admin: 03/19/24 08:07 Dose: 2 sprays Documented By: Admin: 03/18/24 07:43 Dose: 2 sprays Documented By: Admin: 03/17/24 07:53 Dose: 2 sprays Documented By: MIKY Furosemide (Furosemide 40 Mg Tab) 40 mg PO BID17 TERI Stop: 04/18/24 18:59 Last Admin: 03/20/24 08:46 Dose: 40 mg Documented By: Admin: 03/19/24 20:13 Dose: 40 mg Documented By: MINERVA Guaifenesin (Guaifenesin 600 Mg Tabcr) 600 mg PO Q12H TERI Stop: 04/16/24 08:59 Last Admin: 03/20/24 08:46 Dose: 600 mg Documented By: Admin: 03/19/24 20:17 Dose: 600 mg Documented By: Admin: 03/19/24 08:06 Dose: 600 mg Documented By: Admin: 03/18/24 20:47 Dose: 600 mg Documented By: Admin: 03/18/24 07:42 Dose: 600 mg Documented By: Admin: 03/17/24 20:22 Dose: 600 mg Documented By: Admin: 03/17/24 07:54 Dose: 600 mg Documented By: MIKY Dexamethasone 6 mg/ Syringe 1.5 mls @ 1 mls/min IV DAILY TERI Stop: 04/16/24 08:59 Last Admin: 03/20/24 08:49 Dose: 1 mls/min Documented By: Admin: 03/19/24 08:07 Dose: 1 mls/min Documented By: Admin: 03/18/24 07:44 Dose: 1 mls/min Documented By: Admin: 03/17/24 08:14 Dose: 1 mls/min Documented By: MIKY Remdesivir 100 mg/ Sodium (Chloride) 250 mls @ 250 mls/hr IV Q24H TERI Stop: 03/21/24 12:59 Last Infusion: 03/20/24 13:32 Dose: Infused Documented By: Admin: 03/20/24 12:07 Dose: 250 mls/hr Documented By: Infusion: 03/19/24 13:17 Dose: Infused Documented By: Admin: 03/19/24 11:55 Dose: 250 mls/hr Documented By: Infusion: 03/18/24 13:36 Dose: Infused Documented By: Admin: 03/18/24 12:13 Dose: 250 mls/hr Documented By: MICHELL Vancomycin HCl 1,500 mg/ (Sodium Chloride) 530 mls @ 200 mls/hr IV Q18H TERI Stop: 03/22/24 00:00 Last Admin: 03/20/24 17:17 Dose: 200 mls/hr Documented By: Infusion: 03/20/24 03:15 Dose: Infused Documented By: Admin: 03/20/24 00:15 Dose: 200 mls/hr Documented By: MINERVA Insulin Aspart (Insulin [place] Per Unit Charge) 0 units SC ACHS TERI Stop: 04/16/24 07:29 Last Admin: 03/20/24 12:46 Dose: 4 units Documented By: MICHELL Co-signed By: MIKY Admin: 03/20/24 09:35 Dose: Not Given Documented By: Admin: 03/19/24 20:31 Dose: 3 units Documented By: MINERVA Co-signed By: LOLIS Admin: 03/19/24 17:09 Dose: 6 units Documented By: MICHELL Co-signed By: GRACIE Admin: 03/19/24 11:49 Dose: Not Given Documented By: Admin: 03/19/24 07:54 Dose: Not Given Documented By: Admin: 03/18/24 20:48 Dose: 3 units Documented By: ANAYA Co-signed By: MARGARITA Admin: 03/18/24 16:55 Dose: 5 units Documented By: MICHELL Co-signed By: EP Admin: 03/18/24 12:07 Dose: 2 units Documented By: MICHELL Co-signed By: MIMI Admin: 03/18/24 07:59 Dose: 3 units Documented By: MICHELL Co-signed By: MIMI Admin: 03/17/24 20:17 Dose: 5 units Documented By: ANAYA Co-signed By: MARGARITA Admin: 03/17/24 17:25 Dose: 7 units Documented By: MIKY Co-signed By: GRACIE Admin: 03/17/24 12:08 Dose: 3 units Documented By: MIKY Co-signed By: EP Admin: 03/17/24 08:09 Dose: 1 units Documented By: MIKY Co-signed By: WILLIAM Insulin Glargine (Lantus Per Unit Charge) 30 units SQ DAILY TERI Stop: 04/19/24 08:59 Last Admin: 03/20/24 09:34 Dose: 30 units Documented By: MICHELL Co-signed By: MIKY Levothyroxine Sodium (Levothyroxine Sodium 50 Mcg Tablet) 50 mcg PO DAILY ON LICENSE OF [facility] Stop: 04/16/24 06:29 Last Admin: 03/20/24 06:08 Dose: 50 mcg Documented By: Admin: 03/19/24 05:30 Dose: 50 mcg Documented By: Admin: 03/18/24 05:32 Dose: 50 mcg Documented By: Admin: 03/17/24 06:35 Dose: Not Given Documented By: SJM Miscellaneous (Carbohydrates For Hypoglycemia ) 15 - 30 gm PO UD PRN PRN Reason: Hypoglycemia Protocol Stop: 04/16/24 05:00 Last Admin: 03/19/24 07:10 Dose: 15 gm Documented By: MICHELL Nystatin (Nystatin Powder 15gm Btl) 1 appln EXT BID ON LICENSE OF [facility] Stop: 04/16/24 08:59 Last Admin: 03/20/24 08:47 Dose: 1 appln Documented By: Admin: 03/19/24 20:14 Dose: 1 appln Documented By: Admin: 03/19/24 08:06 Dose: 1 appln Documented By: Admin: 03/18/24 20:46 Dose: 1 appln Documented By: Admin: 03/18/24 07:46 Dose: 1 appln Documented By: Admin: 03/17/24 20:21 Dose: 1 appln Documented By: MMIvania Admin: 03/17/24 08:09 Dose: 1 appln Documented By: MIKY Polyethylene Glycol (Polyethylene (Miralax) 17 Gm Pack) 17 gm PO AMHS ON LICENSE OF [facility] Stop: 04/16/24 08:59 Last Admin: 03/20/24 08:48 Dose: Not Given Documented By: Admin: 03/19/24 20:15 Dose: Not Given Documented By: Admin: 03/19/24 08:08 Dose: Not Given Documented By: Admin: 03/18/24 20:48 Dose: Not Given Documented By: MMIvania Admin: 03/18/24 08:31 Dose: Not Given Documented By: Admin: 03/17/24 20:22 Dose: Not Given Documented By: Admin: 03/17/24 08:08 Dose: 17 gm Documented By: MIKY Potassium Chloride (Potassium Chloride 10 Meq Tabcr) 10 meq PO QAM ON LICENSE OF [facility] Stop: 04/16/24 08:59 Last Admin: 03/20/24 08:53 Dose: 10 meq Documented By: Admin: 03/19/24 08:05 Dose: 10 meq Documented By: Admin: 03/18/24 08:05 Dose: 10 meq Documented By: Admin: 03/17/24 08:09 Dose: 10 meq Documented By: MIKY Saccharomyces Boulardii (Saccharomyces Boulardii 250 Mg Cap) 250 mg PO AMHS TERI Stop: 04/18/24 20:59 Last Admin: 03/20/24 08:46 Dose: 250 mg Documented By: Admin: 03/19/24 20:15 Dose: 250 mg Documented By: LMP Triamcinolone Acetonide (Triamcinolone Acet 0.1% Cr 15 Gm Tube) 1 appln TOP BID TERI Stop: 04/16/24 08:59 Last Admin: 03/20/24 08:46 Dose: 1 appln Documented By: Admin: 03/19/24 20:16 Dose: 1 appln Documented By: Admin: 03/19/24 08:06 Dose: 1 appln Documented By: Admin: 03/18/24 20:46 Dose: 1 appln Documented By: Admin: 03/18/24 07:45 Dose: 1 appln Documented By: Admin: 03/17/24 20:21 Dose: 1 appln Documented By: Admin: 03/17/24 07:54 Dose: 1 appln Documented By: MIKY Venlafaxine HCl (Venlafaxine Hcl Xr 75 Mg Capxr) 225 mg PO QAM ON LICENSE OF [facility] Stop: 04/16/24 08:59 Last Admin: 03/20/24 08:46 Dose: 225 mg Documented By: Admin: 03/19/24 08:06 Dose: 225 mg Documented By: Admin: 03/18/24 07:42 Dose: 225 mg Documented By: Admin: 03/17/24 07:54 Dose: 225 mg Documented By: MIKY Discontinued Medications Albuterol (Albut/Ipratrop 3mg/0.5mg Neb 3 Ml Vial) 3 ml INH QIDR TERI; Protocol Stop: 04/16/24 06:59 Last Admin: 03/17/24 07:25 Dose: 3 ml Documented By: TENZIN Gabapentin (Gabapentin 300 Mg Cap) 600 mg PO TID ON LICENSE OF [facility] Stop: 04/16/24 08:59 Last Admin: 03/17/24 07:54 Dose: 600 mg Documented By: MIKY Acetaminophen (Ofirmev) 1,000 mg in 100 mls @ 400 mls/hr IV NOW STA Stop: 03/17/24 00:54 Last Infusion: 03/17/24 02:11 Dose: Infused Documented By: Admin: 03/17/24 00:57 Dose: 400 mls/hr Documented By: ANGELA Meropenem 500 mg/ Syringe 10 mls @ 2 mls/min IV NOW STA; Protocol Stop: 03/17/24 01:02 Last Admin: 03/17/24 01:49 Dose: 2 mls/min Documented By: ANGELA Sodium Chloride (Nss) 1,000 mls @ 999 mls/hr IV .Q1H1M ONE Stop: 03/17/24 01:59 Last Infusion: 03/17/24 03:50 Dose: Infused Documented By: Admin: 03/17/24 01:52 Dose: 999 mls/hr Documented By: ANGELA Magnesium Sulfate/Dextrose (Magnesium Sulfate / D5w) 1 gm in 100 mls @ 200 mls/hr IV Q30M TERI Stop: 03/17/24 02:31 Last Infusion: 03/17/24 03:50 Dose: Infused Documented By: Admin: 03/17/24 02:48 Dose: 200 mls/hr Documented By: Infusion: 03/17/24 02:41 Dose: Infused Documented By: Admin: 03/17/24 02:11 Dose: 200 mls/hr Documented By: ANGELA Meropenem 500 mg/ Syringe 10 mls @ 2 mls/min IV Q6H TERI; Protocol Stop: 03/22/24 05:59 Last Admin: 03/18/24 17:21 Dose: 2 mls/min Documented By: Admin: 03/18/24 12:13 Dose: 2 mls/min Documented By: Admin: 03/18/24 05:32 Dose: 2 mls/min Documented By: Admin: 03/17/24 23:18 Dose: 2 mls/min Documented By: Admin: 03/17/24 17:29 Dose: 2 mls/min Documented By: Admin: 03/17/24 11:58 Dose: 2 mls/min Documented By: Admin: 03/17/24 06:44 Dose: 2 mls/min Documented By: MARGARITA Remdesivir 200 mg/ Sodium (Chloride) 250 mls @ 125 mls/hr IV ONE ONE; Protocol Stop: 03/17/24 10:44 Last Infusion: 03/17/24 12:01 Dose: Infused Documented By: Admin: 03/17/24 09:41 Dose: 125 mls/hr Documented By: MIKY Meropenem 500 mg/ Syringe 10 mls @ 2 mls/min IV Q6H TERI; Protocol Stop: 03/29/24 10:59 Last Admin: 03/20/24 12:07 Dose: 2 mls/min Documented By: Admin: 03/20/24 06:06 Dose: 2 mls/min Documented By: Admin: 03/20/24 00:12 Dose: 2 mls/min Documented By: Admin: 03/19/24 16:55 Dose: 2 mls/min Documented By: Admin: 03/19/24 11:43 Dose: 2 mls/min Documented By: MICHELL Vancomycin HCl 2,500 mg/ (Dextrose) 550 mls @ 180 mls/hr IV NOW ONE Stop: 03/19/24 14:33 Last Infusion: 03/19/24 16:28 Dose: Infused Documented By: Admin: 03/19/24 12:58 Dose: 180 mls/hr Documented By: MICHELL Insulin Glargine (Lantus Per Unit Charge) 30 units SQ BID TERI Stop: 04/16/24 08:59 Last Admin: 03/19/24 08:27 Dose: 30 units Documented By: MICHELL Co-signed By: JONATHAN Admin: 03/18/24 20:49 Dose: 30 units Documented By: ANAYA Co-signed By: MARGARITA Admin: 03/18/24 07:59 Dose: 30 units Documented By: MICHELL Co-signed By: MIMI Admin: 03/17/24 20:16 Dose: 30 units Documented By: ANAYA Co-signed By: MARGARITA Admin: 03/17/24 08:09 Dose: 30 units Documented By: MIKY Co-signed By: WILLIAM Ioversol (Optiray 320 125ml) 101 ml IV ONCE ONE Stop: 03/17/24 02:10 Last Admin: 03/17/24 02:10 Dose: 101 ml Documented By: SANDRA Pantoprazole Sodium (Pantoprazole 40 Mg Tab) 40 mg PO QAM TERI Stop: 03/20/24 09:01 Last Admin: 03/20/24 08:46 Dose: 40 mg Documented By: Admin: 03/19/24 08:05 Dose: 40 mg Documented By: Admin: 03/18/24 07:43 Dose: 40 mg Documented By: Admin: 03/17/24 09:41 Dose: 40 mg Documented By: MIKY Umeclidinium/Vilanterol (Umeclidinium/Vilanterol 62.5/25mcg 7 Puffs/Inhaler) 1 puffs INH DAILY TERI Stop: 04/16/24 08:59 Last Admin: 03/17/24 07:55 Dose: 1 puffs Documented By: MIKY Discharge Plan Visit Data Chief Complaint: Shortness of Breath/Dyspnea Stated Complaint: SOB ED Provider: Rosa Berry Discharge Problem: Acute and chronic respiratory failure with hypercapnia Patient Disposition: Admitted As Inpatient Discharge Instructions Interventions: ED Discharge Assessment Last Done: 03/17/24 03:45
[2024-03-17 03:10] LABS: Base Excess VBG 14.7 mEq/L; HCO3 VBG 44 mmol/L; Oxygen Saturation VBG 86.4 %; PCO2 VBG 78 mmHg (38-50); PO2 VBG 53 mmHg; pH VBG 7.36 (7.36-7.41)
[2024-03-17 03:46] LABS: Troponin I High Sensitivity 48.5 pg/ml (0-14)
--- NOTE | 2024-03-17 03:47 | XRay Report ---
EXAM: XR chest 1V portable CLINICAL HISTORY: SEPSIS BEST POSSIBLE IMAGES WTW TECHNIQUE: An X-ray image of the chest is obtained in AP projection. COMPARISON: Previous X-ray dated 03/11/2024. FINDINGS: Pulmonary Parenchyma: Prominent bronchovascular markings, likely related to pulmonary congestion. Left CPA is obliterated by the enlarged heart and adjacent opacity, right is free. Left lower zone opacity, could be infection, or more evaluation as clinically indicated. Left sided cardiac pacemaker in place. Heart and Mediastinum: There is cardiomegaly. Bony Thorax: Bony thorax appears intact without fractures or deformities. Soft Tissues: Soft tissues overlying the chest wall are unremarkable. IMPRESSION: 1. There is cardiomegaly, along with Prominent bronchovascular markings, denoting pulmonary congestion. (Stable). 2. A stable Left lower lobe opacity, for more evaluation. 3. Normal chest X-ray. No acute cardiopulmonary abnormalities are identified. Electronically signed by Love Fernandez 03-17-2024 03:47 AM
[2024-03-17 03:52] LABS: Appearance Urine Clear (Clear); Bacteria Urine Automated None Seen (None Seen); Bilirubin Urine Negative (Negative); Blood Urine 1+ (Negative); Color Urine Yellow; Glucose Urine UA Negative (Negative); Ketones Urine Trace (Negative); Leukocyte Esterase Urine 1+ (Negative); Nitrite Urine Negative (Negative); Protein Urine 1+ (Negative); Specific Gravity Urine 1.025 (1.000-1.030); Urobilinogen Urine Negative (Negative); WBC Urine Automated 21-50 /hpf (0-5); pH Urine 5.5 (4.5-7.5)
--- NOTE | 2024-03-17 04:26 | CT Scan Report ---
EXAM: CT angio chest PE protocol CLINICAL HISTORY: Pt. presents to the ED from [facility]. Facility reports Pt. was just discharged from the hospital due to Uti/Sepsis two days ago. Pt has been SOB, weak and more lethargoc than normal. Pt. is A Ox4. Facility reports decreased MS and has been shakey. EMS reports O2 was 82 when arrived to facilty. Rhonci heard. Moist non-productive cough noted. 101 ml opti 320 PW/GS TECHNIQUE: Spiral axial continuous cuts were taken through the chest with multiplanar reformatting and with intravenous administration of contrast material (Pulmonary embolism protocol). One of the following dose reduction techniques was utilized for this exam.Automated exposure control, adjustment of the mA and/or kV according to patient size, and use of iterative reconstruction. One of these 3D techniques was utilized: Maximum Intensity Pixel (MIP), 3D Reconstructed Images, Volume Rendered Images, Surface Shaded Rendering. COMPARISON: CR 03/11/[address] 05/22/2023 FINDINGS: The main pulmonary trunk is dilated measuring 42 mm, the main pulmonary artereis are also dilated. The pulmonary trunk, right and left pulmonary arteries show adequate opacification with contrast. No evidence of intraluminal filling defects impressive of pulmonary embolism, no evidence of mural calcification or aneurismal dilatation. There is consolidation/collapse involves the left lower lung lobe, shows cavitary changes and associated with volume loss, causing shift of the heart and mediastinal structures to the left side. There is a calcified lung nodule at the right upper lobe measuring 7 mm. The rest of both lungs are clear with no parenchymal or interstitial lesion. No evidence of nodules, masses or consolidation. The vascular pattern appears normal with no evidence of bronchovascular distortion. Few calcified mediastinal lymph jeff enlargement. Cardiomegaly is noted with no pericardial effusion. There is minimal pleural thickening, yet no significant effusion. The visualized chest wall and axillary spaces display normal appearance. Bone window settings showed degenerative changes of the thoracic spine, no evidence of destructive bony lesions. Scanned upper abdominal cuts are unremarkable. IMPRESSION: 1. Pulmonary arterial hypertension. 2. No evidence of pulmonary embolism. 3. Left lower lung lobe consolidation/collapse. A stable finding since the last CR and a new finding since the last CT study. 4. Right upper lung lobe calcified nodule and calcified lymph nodes likely old granuloma. 5. Cardiomegaly. Electronically signed by Love Fernandez 03-17-2024 04:26 AM
[2024-03-17] MEDS ORDERED: LORazepam 0.5 MG TAB PO PRN (05:01)
[2024-03-17] MEDS ORDERED: bisacodyL 10 MG SUPP PR PRN (05:01)
[2024-03-17] MEDS ORDERED: GLUCAGON FOR INJ 1 MG VIAL SQ PRN (05:01)
[2024-03-17] MEDS ORDERED: GLUCOSE 40% GEL 15 GM TUBE PO PRN (05:01)
[2024-03-17] MEDS ORDERED: ALBUT/IPRATROP 3MG/0.5MG NEB 3 ML VIAL INH PRN (05:01)
[2024-03-17] MEDS ORDERED: GLUCOSE 10 TAB/TUBE PO PRN (05:01)
[2024-03-17] MEDS ORDERED: DEXTROSE 50% 50 ML SYRINGE IV PRN (05:01)
[2024-03-17 05:43] LABS: Thyroid Stimulating Hormone 2.379 uIu/ml (0.300-4.500)
[2024-03-17] MEDS: LEVOTHYROXINE SODIUM 50 MCG TABLET PO SCH (06:35)
[2024-03-17] MEDS: MEROPENEM 500 MG in SYRINGE 0 ML IV SCH (06:44)
[2024-03-17] MEDS: ALBUT/IPRATROP 3MG/0.5MG NEB 3 ML VIAL INH SCH (07:25)
[2024-03-17] MEDS: DIVALPROEX DELAY RELEASE 250 MG TABEC PO SCH (07:53)
[2024-03-17] MEDS: FLUTICASONE PROPIONATE NA SPR 16 GM BTL SCH (07:53)
[2024-03-17] MEDS: ENOXAPARIN INJ 40 MG/0.4 ML SYR SQ SCH (07:54)
[2024-03-17] MEDS: busPIRone 15 MG TAB PO SCH (07:54)
[2024-03-17] MEDS: TRIAMCINOLONE ACET 0.1% CR 15 GM TUBE TOP SCH (07:54)
[2024-03-17] MEDS: guaiFENesin 600 MG TABCR PO SCH (07:54)
[2024-03-17] MEDS: GABAPENTIN 300 MG CAP PO SCH (07:54)
[2024-03-17] MEDS: VENLAFAXINE HCL XR 75 MG CAPXR PO SCH (07:54)
[2024-03-17] MEDS: FLUTICASONE FUROATE 200MCG 14 PUFFS/INHALER INH SCH (07:55)
[2024-03-17] MEDS: UMECLIDINIUM/VILANTEROL 62.5/25MCG 7 PUFFS/INHALER INH SCH (07:55)
[2024-03-17] MEDS: POLYETHYLENE (MIRALAX) 17 GM PACK PO SCH (08:08)
[2024-03-17] MEDS: POTASSIUM CHLORIDE 10 MEQ TABCR PO SCH (08:09)
[2024-03-17] MEDS: LANTUS PER UNIT CHARGE SQ SCH (08:09)
[2024-03-17] MEDS: INSULIN ASPART PER UNIT CHARGE SC SCH (08:09)
[2024-03-17] MEDS: NYSTATIN POWDER 15GM BTL EXT SCH (08:09)
[2024-03-17] MEDS: dexAMETHasone 6 MG in SYRINGE 0 ML IV SCH (08:14)
[2024-03-17] MEDS ORDERED: DEXAMETHASONE SOD INJ 4 MG/ML VIAL IV SCH (09:00)
[2024-03-17] MEDS ORDERED: predniSONE 5 MG TAB PO SCH (09:00)
[2024-03-17] MEDS ORDERED: NON-FORMULARY MEDICATION (Fluticasone-Umeclidin-Vilanter [Trelegy Ellipta] 200-62.5-25 mcg INH SCH (09:00)
[2024-03-17] MEDS: REMDESIVIR 200 MG in SODIUM CHLORIDE 0.9% 210 ML IV ONE (09:41)
[2024-03-17] MEDS: PANTOprazole 40 MG TAB PO SCH (09:41)
[2024-03-17] MEDS: ALBUTEROL HFA 8 GM INHALER INH SCH (11:24)
[2024-03-17] MEDS: ACETAMINOPHEN 500 MG TAB PO PRN (15:27)
--- NOTE | 2024-03-17 19:20 | Hospitalist Progress Note ---
Date of Service March 17, 2024 Assessment & Plan (1) COVID: Plan: Acute COVID PNA @ [facility]. Causing [id number] hypercapnic, hypoxic respiratory failure in this patient, who remains DNR/DNI. Patient does not wish to continue with BIPAP out of concern that wearing the BIPAP mask will compress the facial nerve and cause patient to suffer from excruciating, lancinating trigeminal neuralgia. Patient's concern is actually legitimate in that the facial nerve originates in the brainstem (e.g., glo) where it divides into a large motor root and a small sensory root, before the facial nerve exits the skull via the stylomastoid foramen, and on to the parotid gland, where it divides once again into the temporal, zygomatic, buccal, marginal mandibular, and cervical branches, to supply all aspects of facial ex pression (e.g., motor movement). Compression of the facial nerve by the BIPAP mask could conceivably trigger a paroxysm of trigeminal neuralgia, which the patient fears would be far worse than any breathing problems associated with acute COVID PNA. I concur. Hence, I have D/C'd BIPAP, and left patient with supplemental O2 via nasal cannula to maintain oxygenation levels at or above 90%. In addition, while patient continues with dexamethasone 6mg IV daily (day #1/5 on 03/17/2024, 9:00am), I have opted to start patient on protonix 40mg PO daily (day #1/4 on 03/17/2024, 9:00am) to prophylax against steroid-associated gastritis, ulcer formation,and/or GI bleeding. I have also opted to start patient on remdesivir 200mg IV x 1 dose (03/17/2024, 8:45am), followed by remdesivir 100mg IV daily (day #1 on 03/18/2024, 12:00pm), and I will check repeat LFT in the 03/18/2024 am for any evidence of remdesivir-mediated transaminitis. Of final note, patient is being continued on contact and droplet precautions. (2) Metabolic encephalopathy: Plan: Etiology of toxic metabolic encephalopathy is most probably multi-factorial and includes contributions from patient's: (A) chronic, bedbound state @ [facility] with morbid obesity with BMI 46.8 (height 175.3 cm; weight 143.6 kg). (B) presumed obesity hypoventilation syndrome with morbid obesity with BMI 46.8 (height 175.3 cm; weight 143.6 kg). (C) acute COVID PNA. Unfortunately, nothing can be done to address either (A) or (B). Treatment of (C) is described above in bullet #1. (3) Sterile pyuria: Plan: Sterile pyuria is defined as a urine sample with at least 10 WBC and 0 bacteria. cf., U/A: clear yellow, LE 1+, nitrite-, WBC 21-50, RBC 11-20, epi 3-5, bacteria 0 (03/17/2024, 2:28am). cf., urine culture (03/17/2024, 2:28am): Despite the absence of bacteria in this patient's urine sample, the likelihood of acute UTI remains, especially given patient's recent diagnosis of ESBL E. co li UTI (as noted on 03/12/2024, 12:47am urine culture). Hence, patient continues to receive meropenem 500mg IV q6 (day #1/7 on 03/17/2024, 5:03am). Stay tuned. (4) Hypochloremia: Plan: cf., Cl 97 mmol/L (03/14/2024, 5:44am). cf., Cl 93 mmol/L (03/17/2024, 12:00am). Etiology of acute hypochloremia is most likely due to acute dehydration due to acute cystitis/UTI (masquerading as sterile pyuria). Hence, I have encouraged patient to increase her oral intake of water to at least 8 ounces per hour while awake. (5) Respiratory failure with hypoxia and hypercapnia: Plan: cf., O2 sat 91% on room air (03/16/2024, 11:52pm). cf., CO2 41 mmol/L (03/14/2024, 5:44am). cf., CO2 42 mmol/L (03/17/2024, 12:00am). So, patient was not technically hypoxic on admission date 03/16/2024 was not 90% or lower on admission date 03/16/2024, even though patient has been diagnosed with acute COVID PNA. Patient is hypercapnic, however, and that is most prob ably due to: (A) chronic, bedbound state @ [facility] with morbid obesity with BMI 46.8 (height 175.3 cm; weight 143.6 kg). (B) presumed obesity hypoventilation syndrome with morbid obesity with BMI 46.8 (height 175.3 cm; weight 143.6 kg). (C) acute COVID PNA. Unfortunately, nothing can be done to address either (A) or (B). Treatment of (C) is described above in bullet #1. (6) Elevated troponin: Plan: cf., Troponin #1 44.1 pg/mL (03/17/2024, 12:00am). cf., Troponin #2 48.5 pg/mL (03/17/2024, 2:56am). cf., EKG (03/16/2024, 11:49pm): Atrial-sensing, ventricular-pacing @ 81, CO 192, QTC 518 (by my review). Historically speaking, patient's troponin levels remain chronically elevated as early as 04/17/2022, 9:30am with troponin 41.3 pg/mL, and nominally increasing to: Troponin 43.1 pg/mL (04/17/2022, 2:54pm). Troponin 46.3 pg/mL (04/18/2022, 8:23am). Troponin 44.6 pg/mL (04/18/2022, 2:41pm). Such nominal elevations in troponin levels have been and remain attributable to patient's weak heart: cf., TTE (04/17/2022, 6:49am): 1. LV EF 45%. Global hypokinesis. Abnormal septal motion consistent with PPM. Mild concentric LVH. Grade I LV diastolic dysfunction. 2. RV size normal. RV systolic function normal. 3. Borderline LA enlargement. RA not well visualized. 4. No . Trace AR. 5. No PS. No CO. 6. No MS. Mild MR. 7. No TS. Trace TR. 8. Aortic root normal. Ascending aorta normal size. 9. No pericardial effusion. Pleural effusion. (as per CARDS Dr. Fan Day). cf, TTE (05/22/2023, 1:14pm): 1. LV EF 40-45%. 2. Severe mitral annular calcification. 3. IVC mildly dilated. 4. No pericardial effusion. (as per CARDS Dr. Wily Lemus). cf., TTE (09/21/2023, 1:21pm): 1. LV EF 50-55%. Mild concentric LVH. Regional wall motion abnormalities cannot be excluded due to limited visualization. 2. LA not well visualized. 3. RV not well visualized. RV systolic function normal. 4. RA not well visualized. 5. Aortic valve not well visualized. 6. Mitral valve not well visualized. 7. Tricuspid valve not well visualized. 8. Pulmonic valve not well visualized. 9. IVC not visualized at all. 10.No pericardial effusion. (as per CARDS Dr. Wily Lemus). Hence, I surmise that such nominal elevations in troponin levels are not due to acute NSTEMI, but to type II myocardial ischemia, that is, demand ischemia from a weak heart. Moreover, given that patient is morbidly obese with BMI 46.8 (height 175.3 cm; weight 143.6 kg), I do not think that any further/future testing of troponin levels or future TTE are warranted in this patient as (A) patient is not a candidate for cardiac catheterization and (B) the patient's body habitus precludes clear visualization of the entire heart, but most importantly, the LV wall motion, respectively. (7) Chronic combined systolic and diastolic CHF (congestive heart failure): Plan: Not acute exacerbation of chronic systolic/diastolic CHF as patient reports no weight gain above and beyond her dry baseline weight of 320 pounds @ [facility]. cf., current weight is 315.92 pounds on 03/18/2024. Observe. Plan Other secondary medical issues include: Hyperlipidemia -Continue Atorvastatin Anxiety -Continue Buspirone and Venlafaxine Diabetes -Lantus 30u BID -ISS Hypothyroid -Synthroid DNR/DNI. Condition of patient remains guarded. I do not expect any seismic change(s) in patient's medical condition(s), only small ones strong enough to get this patient back into her wheelchair and back to [facility] for long- term care. In the interim, patient remains in [facility] telemetry bed #232-1, where hope turns to help. Admission and Anticipated Discharge Date Admission Date: March 17, 2024 Subjective "I feel less short of breath today (03/17/2024) than yesterday (03/16/2024). Cough, but no wheeze. No blood. No fevers or chills. I don't want to wear my BIPAP because I am afraid that wearing the BIPAP will trigger my trigeminal neuralgia (e.g., by compressing the facial nerve)." Review of Systems Review of Systems: Positive for shortness of breath and dry cough. Negative for antecedent/coincident anosmia, ageusia, hypogeusia, rhinorrhea, otorrhea, conjunctivitis, myalgias, arthralgias, fevers, chills, diaphoresis, wheeze, sore throat, hemoptysis, shortness of breath, dyspnea on exertion, chest pains, palpitations, pleurisy, nausea, vomiting, diarrhea, abdominal pain, pelvic pain, hematochezia, melena, hematuria, dysuria, frequency, urgency, headaches, dizziness, visual changes, hearing changes, falls, syncope, trauma, travel history, or food/drug ingestions novel/new. All other review of systems are reported as negative/normal on 03/17/2024. Physical Exam Physical Exam: General: comfortable, coherent, cooperative. Wide awake and alert. Not confused, lethargic, or obtunded. Patient speaks in complete, fluent, and articulate sentences without pause, interruption, cough, or wheeze. HEENT: normocephalic, atraumatic. EOMI, PERRL. No nystagmus, gaze paresis, anisocoria, miosis, mydriasis, hyphema, chemosis, scleral icterus, conjunctivitis, or pterygium. No otorrorhea. No rhinorrhea. No pharyngeal discharge or exudate. Neck: suppler, no stridor, bruit, goiter, JVD, or HJR. Lymph: no cervical, supraclavicular, infraclavicular, axillary, epitrochlear, or inguinal adenopathy. Chest: symmetric rise and fall with respiration. Non-tender to palpation. Lungs: clear to auscultation and percussion. No audible expiratory wheeze, egophony, pectoriloquy, increase in tactile fremitus, or flatness/dullness to percussion at the bases. Heart: RRR, S1 and S2 noted. No S3 or S4 summation gallop. No tripartite friction rub. Grade II/ early systolic murmur @ LLSB, not radiating to the carotids, the axilla, or back. Invariant in regards to the respiratory cycle. Abdomen: soft, non-tender, non-distended. No rebound, guarding, Cook's sign, or organomegaly. Bowel sounds auscultated in all 4 quadrants. Extremities: no clubbing, cyanosis, or edema. 2+ pedal pulses bilaterally. Skin: no decubitus ulcer, exanthem, or enanthem. Neurology: alert and oriented in regards to person, place, and time. DTR+ and symmetric. 5/5 motor strength in all 4 extremities, both proximally and distally. No tremors, tics, or myoclonus. Urology: no avelar catheter. No urethral discharge. Results & Data Results & Data Vital Signs (Past 12 Hours) Vital Signs Temp Pulse Pulse Resp BP Pulse Ox O2 Del Method 03/17/24 19:17 36.8 C 71 20 147/70 H 96 Nasal Cannula 03/17/24 16:38 37.1 C 78 19 138/69 96 Nasal Cannula 03/17/24 14:08 72 22 94 BiPAP 03/17/24 13:00 87 03/17/24 11:25 73 18 94 Nasal Cannula 03/17/24 11:10 37.2 C 74 18 151/72 H 93 Nasal Cannula 03/17/24 08:02 36.9 C 62 24 120/62 95 BiPAP 03/17/24 07:50 Nasal Cannula 03/17/24 07:26 66 25 H 95 03/17/24 07:26 66 25 H 95 BiPAP O2 Flow Rate FiO2 03/17/24 19:17 3 03/17/24 16:38 4 03/17/24 14:08 40 03/17/24 13:00 03/17/24 11:25 4 03/17/24 11:10 4 03/17/24 08:02 03/17/24 07:50 6 03/17/24 07:26 40 03/17/24 07:26 40 Laboratory Results COVID+ (03/17/2024, 12:50am). Influenza A-, B-, RSV- (03/17/2024, 12:50am). Procalcitonin #1 0.27 ng/mL (03/11/2024, 11:15pm). Procalcitonin #2 0.10 ng/mL (03/17/2024, 12:00am). Lactic acid #1 1.4 mmol/L (03/11/2024, 12:28am). Lactic acid #2 1.2 mmol/L (03/17/2024, 12:50am). U/A: clear yellow, LE 1+, nitrite-, WBC 21-50, RBC 11-20, epi 3-5, bacteria 0 (03/17/2024, 2:28am). urine culture (03/17/2024, 2:28am): Cl 97 mmol/L (03/14/2024, 5:44am). Cl 93 mmol/L (03/17/2024, 12:00am). CO2 41 mmol/L (03/14/2024, 5:44am). CO2 42 mmol/L (03/17/2024, 12:00am). AST 15, ALT 21, ALK PHOS 60, Tbili 0.4 (03/17/2024, 12:00am). WBC 5.46, N60 L27 M9 E1 (03/14/2024, 5:44am). WBC 7.87, N79 L11 M4 B1 (03/17/2024, 12:00am). Troponin #1 44.1 pg/mL (03/17/2024, 12:00am). Troponin #2 48.5 pg/mL (03/17/2024, 2:56am). Diagnostic Findings Portable CXR (03/17/2024, 12:39am): 1. There is cardiomegaly, along with Prominent bronchovascular markings, denoting pulmonary congestion. (Stable). 2. A stable Left lower lobe opacity, for more evaluation. 3.Normal chest X-ray. No acute cardiopulmonary abnormalities are identified. CTA chest (03/17/2024, 1:29am): 1. Pulmonary arterial hypertension. 2. No evidence of pulmonary embolism. 3. Left lower lung lobe consolidation/collapse. A stable finding since the last CR and a new finding since the last CT study. 4. Right upper lung lobe calcified nodule and calcified lymph nodes likely old granuloma. 5. Cardiomegaly. PG Care Time/CCT Total # of Minutes Spent Total Time Spent with Patient: Total time spent is greater than 50% in coordination of care (as documented) at patient's floor/unit and/or counseling patient: Coding Level of Care Code 48956 SUB INP/OBS CARE 3/50MIN Diagnoses COVID U07.1 Metabolic encephalopathy G93.41 Sterile pyuria R82.81 Hypochloremia E87.8 Respiratory failure with hypoxia and hypercapnia J96.91; J96.92 Elevated troponin R79.89 Chronic combined systolic and diastolic CHF (congestive heart failure) I50.42
[2024-03-18 06:23] LABS: Hematocrit (blood only) 32.3 % (37.0-47.0); Hemoglobin 9.8 g/dl (12.0-16.0); Mean Corpuscular Hemoglobin 28.6 pg (25.0-34.0); Mean Corpuscular Hgb Conc 30.3 g/dL (32.0-36.0); Mean Corpuscular Volume 94.2 fL (80.0-100.0); Mean Platelet Volume 9.9 fL (9.4-12.4); Platelet Count 148 K/uL (130-400); RDW Coefficient of Variation 13.9 % (11.5-14.5); RDW Standard Deviation 47.6 fL (36.4-46.3); Red Blood Count 3.43 M/uL (4.20-5.40); White Blood Count 3.89 K/ul (4.8-10.8)
[2024-03-18 07:11] LABS: Albumin Globulin Ratio 1.1 (0.9-2); Albumin Level 2.6 gm/dl (3.4-5.0); BUN Creatinine Ratio 26.2 (10-20); Bilirubin,Total 0.2 mg/dl (0.2-1.0); Calcium 8.5 mg/dl (8.6-10.3); Creatinine Clr Calc Pharmacy 84.3 ml/min; Globulin 2.4 gm/dl (2.5-4.0)
[2024-03-18 07:12] LABS: Basophils # (auto) 0.02 K/uL (0.00-0.20); Basophils % (auto) 0.5 %; Eosinophils # (auto) 0.03 K/uL (0.00-0.50); Eosinophils % (auto) 0.8 %; Immature Granulocytes # (auto) 0.34 K/uL (0.01-0.20); Immature Granulocytes % (auto) 8.7 %; Lymphocytes # (auto) 0.83 K/uL (1.20-3.40); Lymphocytes % (auto) 21.3 %; Monocytes # (auto) 0.34 K/uL (0.11-0.59); Monocytes % (auto) 8.7 %; Neutrophils # (auto) 2.33 K/uL (1.40-6.50)
[2024-03-18] MEDS: REMDESIVIR 100 MG in SODIUM CHLORIDE 0.9% 230 ML IV SCH (12:13)
--- NOTE | 2024-03-18 19:12 | Hospitalist Progress Note ---
Date of Service March 18, 2024 Assessment & Plan (1) COVID: Plan: Acute COVID PNA @ [facility]. Causing [id number] hypercapnic, hypoxic respiratory failure in this patient, who remains DNR/DNI. Patient does not wish to continue with BIPAP out of concern that wearing the BIPAP mask will compress the facial nerve and cause patient to suffer from excruciating, lancinating trigeminal neuralgia. Patient's concern is actually legitimate in that the facial nerve originates in the brainstem (e.g., glo) where it divides into a large motor root and a small sensory root, before the facial nerve exits the skull via the stylomastoid foramen, and on to the parotid gland, where it divides once again into the temporal, zygomatic, buccal, marginal mandibular, and cervical branches, to supply all aspects of facial ex pression (e.g., motor movement). Compression of the facial nerve by the BIPAP mask could conceivably trigger a paroxysm of trigeminal neuralgia, which the patient fears would be far worse than any breathing problems associated with acute COVID PNA. I concur. Hence, I discontinued BIPAP, and have kept the patient on 3 liters/minute of supplemental O2 via nasal cannula to maintain oxygenation levels at or above 90%. In addition, while patient continues with dexamethasone 6mg IV daily (day #1/5 on 03/17/2024, 9:00am), I opted to start patient on protonix 40mg PO daily (day #1/4 on 03/17/2024, 9:00am) to prophylax against steroid-associated gastritis, ulcer formation,and/or GI bleeding. I have also opted to start patient on remdesivir 200mg IV x 1 dose (03/17/2024, 8:45am), followed by remdesivir 100mg IV daily (day #1 on 03/18/2024, 12:00pm), and I will check repeat LFT in the 03/18/2024 am for any evidence of remdesivir-mediated transaminitis. Of final note, patient is being continued on contact and droplet precautions. (2) Metabolic encephalopathy: Plan: Etiology of toxic metabolic encephalopathy is most probably multi-factorial and includes contributions from patient's: (A) chronic, bedbound state @ [facility] with morbid obesity with BMI 46.8 (height 175.3 cm; weight 143.6 kg). (B) presumed obesity hypoventilation syndrome with morbid obesity with BMI 46.8 (height 175.3 cm; weight 143.6 kg). (C) acute COVID PNA. Unfortunately, nothing can be done to address either (A) or (B). Treatment of (C) is described above in bullet #1. (3) Sterile pyuria: Plan: Sterile pyuria is defined as a urine sample with at least 10 WBC and 0 bacteria. cf., U/A: clear yellow, LE 1+, nitrite-, WBC 21-50, RBC 11-20, epi 3-5, bacteria 0 (03/17/2024, 2:28am). cf., urine culture (03/17/2024, 2:28am): < 1,000 cfu/mL. Given patient's recent diagnosis of ESBL E. coli UTI (as noted on 03/12/2024, 12:47am urine culture), patient was started on meropenem 500mg IV q6 (day #1/7 on 03/17/2024, 5:03am). Given urine culture (03/17/2024, 2:28am) results above, acute UTI has been ruled out. Hence, I have discontinued meropenem 500mg IV q6 on 03/19/2024, 7:11pm. (4) Hypochloremia: Plan: cf., Cl 97 mmol/L (03/14/2024, 5:44am). cf., Cl 93 mmol/L (03/17/2024, 12:00am). Etiology of acute hypochloremia is most likely due to acute dehydration due to acute cystitis/UTI (masquerading as sterile pyuria). Hence, I have encouraged patient to increase her oral intake of water to at least 8 ounces per hour while awake. (5) Respiratory failure with hypoxia and hypercapnia: Plan: cf., O2 sat 91% on room air (03/16/2024, 11:52pm). cf., CO2 41 mmol/L (03/14/2024, 5:44am). cf., CO2 42 mmol/L (03/17/2024, 12:00am). So, patient was not technically hypoxic on admission date 03/16/2024 was not 90% or lower on admission date 03/16/2024, even though patient has been diagnosed with acute COVID PNA. Patient is hypercapnic, however, and that is most probably due to: (A) chronic, bedbound state @ [facility] with morbid obesity with BMI 46.8 (height 175.3 cm; weight 143.6 kg). (B) presumed obesity hypoventilation syndrome with morbid obesity with BMI 46.8 (height 175.3 cm; weight 143.6 kg). (C) acute COVID PNA. Unfortunately, nothing can be done to address either (A) or (B). Treatment of (C) is described above in bullet #1. (6) Elevated troponin: Plan: cf., Troponin #1 44.1 pg/mL (03/17/2024, 12:00am). cf., Troponin #2 48.5 pg/mL (03/17/2024, 2:56am). cf., EKG (03/16/2024, 11:49pm): Atrial-sensing, ventricular-pacing @ 81, ND 192, QTC 518 (by my review). Historically speaking, patient's troponin levels remain chronically elevated as early as 04/17/2022, 9:30am with troponin 41.3 pg/mL, and nominally increasing to: Troponin 43.1 pg/mL (04/17/2022, 2:54pm). Troponin 46.3 pg/mL (04/18/2022, 8:23am). Troponin 44.6 pg/mL (04/18/2022, 2:41pm). Such nominal elevations in troponin levels have been and remain attributable to patient's weak heart: cf., TTE (04/17/2022, 6:49am): 1. LV EF 45%. Global hypokinesis. Abnormal septal motion consistent with PPM. Mild concentric LVH. Grade I LV diastolic dysfunction. 2. RV size normal. RV systolic function normal. 3. Borderline LA enlargement. RA not well visualized. 4. No . Trace AR. 5. No PS. No ND. 6. No MS. Mild MR. 7. No TS. Trace TR. 8. Aortic root normal. Ascending aorta normal size. 9. No pericardial effusion. Pleural effusion. (as per CARDS Dr. Fan Day). cf, TTE (05/22/2023, 1:14pm): 1. LV EF 40-45%. 2. Severe mitral annular calcification. 3. IVC mildly dilated. 4. No pericardial effusion. (as per CARDS Dr. Wily Lemus). cf., TTE (09/21/2023, 1:21pm): 1. LV EF 50-55%. Mild concentric LVH. Regional wall motion abnormalities cannot be excluded due to limited visualization. 2. LA not well visualized. 3. RV not well visualized. RV systolic function normal. 4. RA not well visualized. 5. Aortic valve not well visualized. 6. Mitral valve not well visualized. 7. Tricuspid valve not well visualized. 8. Pulmonic valve not well visualized. 9. IVC not visualized at all. 10.No pericardial effusion. (as per CARDS Dr. Wily Lemus). Hence, I surmise that such nominal elevations in troponin levels are not due to acute NSTEMI, but to type II myocardial ischemia, that is, demand ischemia from a weak heart. Moreover, given that patient is morbidly obese with BMI 46.8 (height 175.3 cm; weight 143.6 kg), I do not think that any further/future testing of troponin levels or future TTE are warranted in this patient as (A) patient is not a candidate for cardiac catheterization and (B) the patient's body habitus precludes clear visualization of the entire heart, but most importantly, the LV wall motion, respectively. (7) Chronic combined systolic and diastolic CHF (congestive heart failure): Plan: Not acute exacerbation of chronic systolic/diastolic CHF as patient reports no weight gain above and beyond her dry baseline weight of 320 pounds @ [facility]. cf., current weight is 315.92 pounds on 03/18/2024. Observe. Plan Other secondary medical issues include: Hyperlipidemia -Continue Atorvastatin Anxiety -Continue Buspirone and Venlafaxine Diabetes -Lantus 30u BID -ISS Hypothyroid -Synthroid DNR/DNI. Condition of patient remains guarded. I do not expect any seismic change(s) in patient's medical condition(s), only small ones strong enough to get this patient back into her wheelchair and back to [facility] for long- term care. In the interim, patient remains in [facility] telemetry bed #232-1, where hope turns to help. Admission and Anticipated Discharge Date Admission Date: March 17, 2024 Subjective "I am better. Breathing better today, easier. Cough, but no wheeze. No blood. No fevers or chills. I still don't want to wear my BIPAP because I am afraid that wearing the BIPAP will trigger my trigeminal neuralgia (e.g., by compressing the facial nerve)." Review of Systems Review of Systems: Positive for shortness of breath and dry cough. Negative for antecedent/coincident anosmia, ageusia, hypogeusia, rhinorrhea, otorrhea, conjunctivitis, myalgias, arthralgias, fevers, chills, diaphoresis, wheeze, sore throat, hemoptysis, shortness of breath, dyspnea on exertion, chest pains, palpitations, pleurisy, nausea, vomiting, diarrhea, abdominal pain, pelvic pain, hematochezia, melena, hematuria, dysuria, frequency, urgency, headaches, dizziness, visual changes, hearing changes, falls, syncope, trauma, travel history, or food/drug ingestions novel/new. All other review of systems are reported as negative/normal on 03/18/2024. Physical Exam Physical Exam: General: comfortable, coherent, cooperative. Wide awake and alert. Not confused, lethargic, or obtunded. Patient speaks in complete, fluent, and articulate sentences without pause, interruption, cough, or wheeze. HEENT: normocephalic, atraumatic. EOMI, PERRL. No nystagmus, gaze paresis, anisocoria, miosis, mydriasis, hyphema, chemosis, scleral icterus, conjunctivitis, or pterygium. No otorrorhea. No rhinorrhea. No pharyngeal discharge or exudate. Neck: suppler, no stridor, bruit, goiter, JVD, or HJR. Lymph: no cervical, supraclavicular, infraclavicular, axillary, epitrochlear, or inguinal adenopathy. Chest: symmetric rise and fall with respiration. Non-tender to palpation. Lungs: clear to auscultation and percussion. No audible expiratory wheeze, egophony, pectoriloquy, increase in tactile fremitus, or flatness/dullness to percussion at the bases. Heart: RRR, S1 and S2 noted. No S3 or S4 summation gallop. No tripartite friction rub. Grade II/ early systolic murmur @ LLSB, not radiating to the carotids, the axilla, or back. Invariant in regards to the respiratory cycle. Abdomen: soft, non-tender, non-distended. No rebound, guarding, Cook's sign, or organomegaly. Bowel sounds auscultated in all 4 quadrants. Extremities: no clubbing, cyanosis, or edema. 2+ pedal pulses bilaterally. Skin: no decubitus ulcer, exanthem, or enanthem. Neurology: alert and oriented in regards to person, place, and time. DTR+ and symmetric. 5/5 motor strength in all 4 extremities, both proximally and distally. No tremors, tics, or myoclonus. Urology: no avelar catheter. No urethral discharge. Results & Data Results & Data Vital Signs (Past 12 Hours) Vital Signs Temp Pulse Pulse Resp BP Pulse Ox O2 Del Method 03/18/24 17:56 65 18 98 Nasal Cannula 03/18/24 16:37 36.6 C 65 18 162/84 H 97 Nasal Cannula 03/18/24 15:27 66 18 98 Nasal Cannula 03/18/24 15:14 71 03/18/24 11:39 37.0 C 67 18 174/62 H 97 Nasal Cannula 03/18/24 11:16 66 18 96 Nasal Cannula 03/18/24 07:34 36.7 C 62 18 155/78 H 97 Nasal Cannula 03/18/24 07:30 63 03/18/24 07:30 Nasal Cannula 03/18/24 07:20 61 18 94 Nasal Cannula O2 Flow Rate 03/18/24 17:56 3 03/18/24 16:37 3 03/18/24 15:27 3 03/18/24 15:14 03/18/24 11:39 3 03/18/24 11:16 3 03/18/24 07:34 3 03/18/24 07:30 03/18/24 07:30 3 03/18/24 07:20 2 Laboratory Results COVID+ (03/17/2024, 12:50am). Influenza A-, B-, RSV- (03/17/2024, 12:50am). Procalcitonin #1 0.27 ng/mL (03/11/2024, 11:15pm). Procalcitonin #2 0.10 ng/mL (03/17/2024, 12:00am). Lactic acid #1 1.4 mmol/L (03/11/2024, 12:28am). Lactic acid #2 1.2 mmol/L (03/17/2024, 12:50am). U/A: clear yellow, LE 1+, nitrite-, WBC 21-50, RBC 11-20, epi 3-5, bacteria 0 (03/17/2024, 2:28am). urine culture (03/17/2024, 2:28am): Cl 97 mmol/L (03/14/2024, 5:44am). Cl 93 mmol/L (03/17/2024, 12:00am). CO2 41 mmol/L (03/14/2024, 5:44am). CO2 42 mmol/L (03/17/2024, 12:00am). AST 15, ALT 21, ALK PHOS 60, Tbili 0.4 (03/17/2024, 12:00am). WBC 5.46, N60 L27 M9 E1 (03/14/2024, 5:44am). WBC 7.87, N79 L11 M4 B1 (03/17/2024, 12:00am). Troponin #1 44.1 pg/mL (03/17/2024, 12:00am). Troponin #2 48.5 pg/mL (03/17/2024, 2:56am). Diagnostic Findings Portable CXR (03/17/2024, 12:39am): 1. There is cardiomegaly, along with Prominent bronchovascular markings, denoting pulmonary congestion. (Stable). 2. A stable Left lower lobe opacity, for more evaluation. 3.Normal chest X-ray. No acute cardiopulmonary abnormalities are identified. CTA chest (03/17/2024, 1:29am): 1. Pulmonary arterial hypertension. 2. No evidence of pulmonary embolism. 3. Left lower lung lobe consolidation/collapse. A stable finding since the last CR and a new finding since the last CT study. 4. Right upper lung lobe calcified nodule and calcified lymph nodes likely old granuloma. 5. Cardiomegaly. PG Care Time/CCT Total # of Minutes Spent Total Time Spent with Patient: Total time spent is greater than 50% in coordination of care (as documented) at patient's floor/unit and/or counseling patient: Coding Level of Care Code 09341 SUB INP/OBS CARE 2/35MIN Diagnoses COVID U07.1 Metabolic encephalopathy G93.41 Sterile pyuria R82.81 Hypochloremia E87.8 Respiratory failure with hypoxia and hypercapnia J96.91; J96.92 Elevated troponin R79.89 Chronic combined systolic and diastolic CHF (congestive heart failure) I50.42
[2024-03-19] MEDS: CARBOHYDRATES FOR HYPOGLYCEMIA PO PRN (07:10)
[2024-03-19] MEDS ORDERED: ATORVASTATIN 10 MG TAB PO SCH (09:00)
--- NOTE | 2024-03-19 10:57 | Pulmonary Consultation ---
Date of Consultation March 19, 2024 Assessment & Plan (1) Chronic combined systolic and diastolic CHF (congestive heart failure): (2) Respiratory failure with hypoxia and hypercapnia: (3) COVID: (4) COPD (chronic obstructive pulmonary disease): (5) Multifocal pneumonia: Plan 78 morbidly obese female with underlying COPD, Obesity hypoventilation syndrome, HFrEF admitted to hospital with hypercarbic and hypoxic respiratory failure CT chest 03/17/2024 personally reviewed: Motion degraded study Dense consolidative process appreciated in the left lower lobe Chronic history of volume loss on the left side Cardiomegaly No significant mediastinal lymphadenopathy VBG 03/17/2024: 7.36/78/53 --Acute on chronic hypercapnic hypoxic respiratory failure Multifactorial Left lower lobe pneumonia COPD as well as ANJALI/OHS and cor pulmonale Respiratory BioFire positive for COVID-19 Procalcitonin 0.1, nasal MRSA positive BNP 138 --COPD with emphysema On Trelegy 200 at home Does not seem to be in exacerbation --ANJALI/OHS Used to have AVAPS machine at home but she stopped using it because of trigeminal neuralgia Trigeminal neuralgia has improved, trial of BiPAP nightly --Metabolic alkalosis Likely compensation for chronic respiratory acidosis Plan: Would recommend treating the patient as if she has bacterial pneumonia Given the nasal MRSA is positive would recommend MRSA coverage for. Linezolid will not be a good option given the QTc of 518 and patient already on 2 other medications which will increase QTc. Options include vancomycin. Recommend infectious disease consult Follow-up sputum culture I am not certain if the patient's presentation is because of COVID-19. I highly doubt that is the inciting factor Would recommend treatment with antimicrobials as above She will benefit from BiPAP nightly. ABG in the morning Case was discussed with RN at bedside Please note the above document was generated using voice recognition software. It may contain grammatical, syntax or spelling errors.Any formal questions or concerns about the content, text or information contained within the body of this dictation should be directly addressed to the provider for clarification. History of Present Illness Attending Physician: Saritha Hook MD History of Present Illness 78 morbidly obese female admitted to hospital for lethargy, shortness of breath and hypoxia Past medical history: COPD, Obesity hypoventilation syndrome, HFrEF admitted to hospital with hypercarbic and hypoxic respiratory failure At the time of examination patient was not in any respiratory distress. She was saturating 97-98% on 2 L nasal cannula. I went down to 1 L She was breathing in the high teens She was actively coughing with hacking cough. She says she is bringing up phlegm which is not easy to bring up She does bring up the phlegm its yellow to green in color. No hemoptysis. Denies any chest pain No dysuria, no diarrhea Does complain of cough when she is eating. Some occasional difficulty swallowing. Social history: Only 5-pack-year smoking history. Did grow up around secondhand smoke Allergies Allergy/AdvReac Type Severity Reaction Status Date / Time chocolate flavor Allergy Intermediate Headache Verified 02/20/24 14:30 erythromycin base Allergy Intermediate CONFUSION, Verified 02/20/24 14:30 HEADACHE nitrofurantoin Allergy Intermediate 15 Verified 02/20/24 14:30 different symptoms Home Medications Medication Instructions Recorded Confirmed Type pen needle, diabetic 31 gauge x #100 ea 06/11/21 03/17/24 Rx 09/14" (Comfort EZ Pen [place]) atorvastatin 10 mg tablet 10 mg PO 3XWK #36 tabs 09/29/21 03/17/24 Rx omeprazole 20 mg capsule,delayed 20 mg PO QAM #90 caps 10/21/21 03/17/24 Rx release acetaminophen 500 mg tablet 1,000 mg PO Q8H PRN fever/pain 02/07/23 03/17/24 History (Tylenol Extra Strength) levothyroxine 50 mcg tablet 50 mcg PO DAILY 02/07/23 03/17/24 History bisacodyl 10 mg rectal suppository 10 mg MO DAILY PRN Constipation 05/22/23 03/17/24 History (Dulcolax (bisacodyl)) fluticasone propionate 50 2 spray intranasal QAM 05/22/23 03/17/24 History mcg/actuation nasal spray,suspension guaifenesin 600 mg tablet, 600 mg PO Q12H 05/22/23 03/17/24 History extended release 12 hr (Mucinex) insulin glargine 100 unit/mL 35 unit subcut AMHS 05/22/23 03/17/24 History subcutaneous solution (Lantus U-100 Insulin) insulin lispro 100 unit/mL 1 sliding scale dose subcut 05/22/23 03/17/24 History subcutaneous solution (Humalog USEASDIRECTD U-100 Insulin) ipratropium 0.5 mg-albuterol 3 mg 3 ml inhalation Q2H PRN 05/22/23 03/17/24 History (2.5 mg base)/3 mL nebulization SOB/wheezing soln ipratropium 0.5 mg-albuterol 3 mg 3 ml inhalation QID 05/22/23 03/17/24 History (2.5 mg base)/3 mL nebulization soln lorazepam 0.5 mg tablet 0.25 mg PO DAILY PRN Anxiety 05/22/23 03/17/24 History menthol 4 % topical gel (Biofreeze 1 applic topical Q8H PRN Pain 05/22/23 03/17/24 History (menthol)) sodium phosphates 19 gram-7 118 ml MO DAILY PRN Constipation 05/22/23 03/17/24 History gram/118 mL enema (Fleet Enema) carvedilol 3.125 mg tablet 3.125 mg PO BIDM #30 tabs 05/26/23 03/17/24 Rx Saccharomyces boulardii 250 mg 250 mg PO AMHS 03/12/24 03/17/24 History capsule (Florastor) buspirone 15 mg tablet 15 mg PO TID 03/12/24 03/17/24 History calcium carbonate 1,000 mg PO Q6 PRN Indigestion 03/12/24 03/17/24 History divalproex 250 mg tablet,delayed 250 mg PO BID 03/12/24 03/17/24 History release fluticasone fur. 200 mcg-umeclid 1 inh inhalation QAM 03/12/24 03/17/24 History 62.5 mcg-vilant 25 mcg inhalat.powder (Trelegy Ellipta) furosemide 40 mg tablet 40 mg PO BID 03/12/24 03/17/24 History gabapentin 300 mg capsule 600 mg PO TID 03/12/24 03/17/24 History polyethylene glycol 3350 17 17 g PO AMHS 03/12/24 03/17/24 History gram/dose oral powder (Miralax) potassium chloride 10 mEq 10 meq PO QAM 03/12/24 03/17/24 History tablet,extended release(part/cryst) prednisone 5 mg tablet 5 mg PO QAM 03/12/24 03/17/24 History simethicone 80 mg chewable tablet 160 mg PO AMHS 03/12/24 03/17/24 History tramadol 50 mg tablet 50 mg PO Q6 PRN pain 9-10 03/12/24 03/17/24 History triamcinolone acetonide 0.1 % 1 applic topical BID 03/12/24 03/17/24 History topical cream venlafaxine 75 mg tablet,extended 225 mg PO QAM 03/12/24 03/17/24 History release 24 hr amoxicillin 875 mg-potassium 1 tab PO BID #14 tabs 03/14/24 03/17/24 Rx clavulanate 125 mg tablet nystatin 100,000 unit/gram topical 1 applic topical BID 03/17/24 03/17/24 History powder (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) Syncope and collapse (06/03/13) Rectal abscess Vertigo Surgical History History of biopsy of temporal artery History of colonoscopy (~06/2010) History of dilation and curettage History of neurologic surgery rhizotomy History of appendectomy History of total abdominal hysterectomy Reports KERRI-BSO S/P knee replacement S/P cholecystectomy Family History Family/Other Hypertension Diabetes Cancer Adopted Heart disease Grandmother Diabetes Heart disease Grandfather Heart disease Aunt Cancer Uncle Cancer Other No pertinent family history in first degree relatives Social History Smoking Status: Unknown if ever smoked Second Hand Exposure: Yes; Do You Dip or Chew Tobacco: No; Preferred Language: Spanish Communication Ability: Effective Curtain Fitter Required: No Beliefs That Will Affect Care: None marital status: / Current Living Situation: [facility] Current Living Situation Comment: Lives at [facility] Other Information That Helps Us Care for You: No Feels Safe at Home: Yes Assistive Devices: Mechanical Lift and Wheelchair Review of Systems 2 Review of Systems: All systems reviewed & are unremarkable except as noted in HPI & below Physical Exam 2 Physical Exam: Constitutional: No acute distress HEENT: EOMI, PERRLA, malar rash Respiratory system: Decreased air entry bilaterally, more decreased on the left, no wheeze, no rhonchi, positive crackles bilateral lower lobes more on the left CVS: S1-S2 positive, no murmurs or gallops Abdomen: Soft, nontender, nondistended, positive bowel sounds x4, obese Extremities: +2 pulses bilaterally radialis/ dorsalis pedis, no cyanosis, +2 pitting edema bilateral lower extremity Neuro: Awake alert oriented x3 Psych: Normal mood and affect G/U: Chronic indwelling Rodriguez Skin: no rashes, warm and dry Lymphatic: no cervical or axillary lymphadenopathy Results & Data Results & Data Vital Signs (Past 12 Hours) Vital Signs Temp Pulse Pulse Pulse Resp BP Pulse Ox 03/19/24 07:30 65 03/19/24 07:30 03/19/24 07:22 60 16 99 03/19/24 07:14 36.6 C 63 18 178/78 H 99 03/19/24 03:15 36.7 C 62 20 159/79 H 97 03/18/24 23:00 61 O2 Del Method O2 Flow Rate 03/19/24 07:30 03/19/24 07:30 Nasal Cannula 03/19/24 07:22 Nasal Cannula 2 03/19/24 07:14 Nasal Cannula 3 03/19/24 03:15 Nasal Cannula 3 03/18/24 23:00 Laboratory Results 03/18/24 05:59 03/18/24 05:59 PG Care Time/CCT Total # of Minutes Spent Total Time Spent with Patient: Total time spent is greater than 50% in coordination of care (as documented) at patient's floor/unit and/or counseling patient: Coding Level of Care Code 74635 INT INP/OBS CARE 3/75MIN Diagnoses Chronic combined systolic and diastolic CHF (congestive heart failure) I50.42 Respiratory failure with hypoxia and hypercapnia J96.91; J96.92 COVID U07.1 COPD (chronic obstructive pulmonary disease) J44.9 Multifocal pneumonia J18.9
[2024-03-19] MEDS ORDERED: VANCOMYCIN CONSULT ACTIVE PRN (11:09)
[2024-03-19 11:12] LABS: Hematocrit (blood only) 36.2 % (37.0-47.0); Hemoglobin 11.2 g/dl (12.0-16.0); Mean Corpuscular Hemoglobin 28.7 pg (25.0-34.0); Mean Corpuscular Hgb Conc 30.9 g/dL (32.0-36.0); Mean Corpuscular Volume 92.8 fL (80.0-100.0); Mean Platelet Volume 9.9 fL (9.4-12.4); Platelet Count 193 K/uL (130-400); RDW Coefficient of Variation 13.8 % (11.5-14.5); RDW Standard Deviation 47.1 fL (36.4-46.3); White Blood Count 4.97 K/ul (4.8-10.8)
[2024-03-19] MEDS ORDERED: VANCOMYCIN HCL 2,500 MG in SODIUM CHLORIDE 0.9% 500 ML IV ONE (11:15)
[2024-03-19 11:31] LABS: BUN Creatinine Ratio 28.9 (10-20); Bilirubin,Total 0.3 mg/dl (0.2-1.0); Calcium 8.9 mg/dl (8.6-10.3); Creatinine Clr Calc Pharmacy 93.4 ml/min; Globulin 3.1 gm/dl (2.5-4.0); Magnesium 1.8 mg/dl (1.7-2.4); Potassium 4.7 mmol/L (3.5-5.1); Total Protein 6.1 gm/dl (6.0-8.3)
[2024-03-19 11:36] LABS: Basophils # (auto) 0.03 K/uL (0.00-0.20); Basophils % (auto) 0.6 %; Eosinophils # (auto) 0.02 K/uL (0.00-0.50); Eosinophils % (auto) 0.4 %; Immature Granulocytes # (auto) 0.29 K/uL (0.01-0.20); Immature Granulocytes % (auto) 5.8 %; Lymphocytes # (auto) 0.98 K/uL (1.20-3.40); Lymphocytes % (auto) 19.7 %; Monocytes # (auto) 0.29 K/uL (0.11-0.59); Monocytes % (auto) 5.8 %; Neutrophils # (auto) 3.36 K/uL (1.40-6.50); Neutrophils % (auto) 67.7 %; Polychromasia 1+
[2024-03-19] MEDS: MEROPENEM 500 MG in SYRINGE 0 ML IV SCH (11:43)
--- NOTE | 2024-03-19 11:54 | XRay Report ---
XR chest 1V portable CLINICAL HISTORY: f/u LLL collapse/consolidation COMPARISON STUDY: Chest radiograph and chest CT March 17, 2024. FINDINGS: A left subclavian pacer is in place. There is no pneumothorax. Possible trace left pleural effusion. Extensive left lower lobe airspace opacity is noted. Aeration has mildly improved. Apparent right infrahilar opacity is likely due to pulmonary vessels. No evidence for overt pulmonary edema. IMPRESSION: Mild improvement in extensive left lower lobe airspace opacity with volume loss. Mild imp rovement in left lower lobe aeration. The findings could reflect pneumonia, aspiration pneumonitis or atelectasis. Continued radiographic follow-up to ensure resolution is recommended. ACT 112: Negative or not required by law. Electronically signed by: Dutch Chavira M.D. 03/19/2024 11:53 AM
[2024-03-19] MEDS: VANCOMYCIN HCL 2,500 MG in DEXTROSE 5% 500 ML IV ONE (12:58)
--- NOTE | 2024-03-19 13:13 | Pharmacy Report ---
Pharmacy PK ABX Note - Date of Service March 19, 2024 - Assessment and Plan Assessment 78 year old F receiving vancomycin for empiric sepsis 48 hr stop . Pertinent microbiologic data includes: Positive MRSA Nasal Swab, blood and urine culture no growth day#1 of therapy. Plan Vancomycin * Loading dose: 2500 mg IV x 1 * Maintenance dose: 1500 mg IV every 18 hours * Regimen is predicted to achieve target AUC/ABBIE of 400-600 mg/L.hr * levels to be ordered if continued greater than 48 hours Pharmacy will continue to follow and will adjust dose/frequency as necessary. Thank you. Pharmacy has transitioned to AUC monitoring for vancomycin. AUC/ABBIE is the preferred PK/PD target and is associated with decreased risk of nephrotoxicity compared to traditional trough targets.
--- NOTE | 2024-03-19 15:32 | Hospitalist Progress Note ---
Date of Service March 19, 2024 Assessment & Plan (1) COVID: Plan: Patient here with COVID with left lower lobe collapse and consolidation, possible secondary bacterial superimposed pneumonia. With acute on chronic respiratory failure with hypoxia and hypercarbia Continue Remdesivir, dexamethasone Continue supplemental O2 and wean off as able to She is not able to tolerate BiPAP therapy due to her trigeminal neuralgia With pneumonia, she is not on antibiotics-resume meropenem which she needs anyway for her UTI and add vancomycin given MRSA nasal swab positive Appreciate pulmonology consultation Add incentive spirometry and flutter valve Check sputum culture Follow CBC, BMP (2) Metabolic encephalopathy: Plan: Etiology multi-factorial from chronic, bedbound state @ [facility] (formerly [facility])[3] with morbid obesity with BMI 46.8 (height 175.3 cm; weight 143.6 kg) along with presumed obesity hypoventilation syndrome And acute COVID PNA. Now much improved (3) Sterile pyuria: Plan: Patient recently admitted with an ESBL E. coli UTI and was treated with 2 days of IV antibiotics followed by p.o. Augmentin. P.o. Augmentin would not be effective in this scenario She received 2 days of meropenem here but then it was discontinued on the evening of 03/18. At this point, she is only had 4 days of treatment-resume meropenem Repeat urine culture here without growth (4) Respiratory failure with hypoxia and hypercapnia: Plan: Secondary to obesity hypoventilation syndrome and COPD, and pneumonia with left lower lobe collapse on CT chest Intolerant of BiPAP Appreciate pulmonology consultation. Plan for ABG in the morning Continue supplemental O2 to keep pulse ox greater than 88% She is currently on IV dexamethasone but is on chronic prednisone 5-10 mg daily- resume this after IV Decadron completed Continue bronchodilators and inhaled corticosteroids (5) Elevated troponin: Plan: Troponin mildly elevated at 43, 46, 44 serially, ECG paced and no ischemic changes, no chest pain Echo here with LVEF 45%, global hypokinesis, abnormal septal motion consistent with pacemaker Elevated troponin likely from myocardial demand ischemia in the setting of pneumonia and hypoxemia (6) Chronic combined systolic and diastolic CHF (congestive heart failure): Plan: Not acute exacerbation of chronic systolic/diastolic CHF as patient reports no weight gain above and beyond her dry baseline weight of 320 pounds @ [facility] (formerly [facility])[3] Her home carvedilol, furosemide will be resumed as blood pressures are elevated Strict I's and O's, daily weights Plan Chronic medical conditions: Permanent pacemaker-in place for complete heart block Functioning well Trigeminal neuralgia: Home gabapentin is on hold-will resume this now that encephalopathy is improved Continue Depakote Hyperlipidemia -Continue Atorvastatin Anxiety -Continue Buspirone and Venlafaxine Diabetes -Blood sugars have been low today-reduce Lantus to 30 units once daily -ISS Hypothyroid -TSH here is normal at 2.3 -Continue Synthroid DVT prophylaxis-Lovenox SQ Disposition-continued stay on telemetry, eventually back to senior living at [place] [facility] Admission and Anticipated Discharge Date Admission Date: March 17, 2024 Subjective Patient reports ongoing cough but is bringing up more mucus. She is eating all of her meals. She is anxious to return back to the senior living where she lives. Telemetry with paced rhythm in the 60s Physical Exam Constitutional: WD/WN, vitals as above + morbidly obese Respiratory: normal respiratory effort Auscultation: + diminished lung sounds (At left base); no crackles and no wheezes Cardiovascular: Rate/Rhythm: regular rate and regular rhythm Heart Sounds: no murmur Extremities: + edema (2+ chronic edema with venous stasis changes legs bilaterally) Gastrointestinal (Abdomen): normal bowel sounds, soft, nontender, no hepatosplenomegaly Psychiatric: A+Ox3, euthymic affect Results & Data Results & Data Vital Signs (Past 12 Hours) Vital Signs Temp Pulse Pulse Resp BP Pulse Ox O2 Del Method 03/19/24 15:29 69 17 98 Nasal Cannula 03/19/24 15:07 67 03/19/24 11:24 65 15 98 Nasal Cannula 03/19/24 11:11 36.7 C 64 18 160/78 H 97 Nasal Cannula 03/19/24 07:30 65 03/19/24 07:30 Nasal Cannula 03/19/24 07:22 60 16 99 Nasal Cannula 03/19/24 07:14 36.6 C 63 18 178/78 H 99 Nasal Cannula O2 Flow Rate 03/19/24 15:29 2 03/19/24 15:07 03/19/24 11:24 2 03/19/24 11:11 2 03/19/24 07:30 03/19/24 07:30 03/19/24 07:22 2 03/19/24 07:14 3 Laboratory Results CBC, BMP, LFTs, BNP, urine culture, and chest x-ray reviewed PG Care Time/CCT Total # of Minutes Spent Total Time Spent with Patient: Total time spent is greater than 50% in coordination of care (as documented) at patient's floor/unit and/or counseling patient: Coding Level of Care Code 07948 SUB INP/OBS CARE 2/35MIN Diagnoses COVID U07.1 Metabolic encephalopathy G93.41 Sterile pyuria R82.81 Respiratory failure with hypoxia and hypercapnia J96.91; J96.92 Elevated troponin R79.89 Chronic combined systolic and diastolic CHF (congestive heart failure) I50.42
[2024-03-19] MEDS: carvediloL 3.125 MG TAB PO SCH (20:12)
[2024-03-19] MEDS: FUROSEMIDE 40 MG TAB PO SCH (20:13)
[2024-03-19] MEDS: SACCHAROMYCES BOULARDII 250 MG CAP PO SCH (20:15)
--- NOTE | 2024-03-19 21:25 | Electrocardiogram Report ---
Test Reason : Blood Pressure : */* mmHG Vent. Rate : 81 BPM Atrial Rate : 81 BPM P-R Int : 192 ms QRS Dur : 206 ms QT Int : 446 ms P-R-T Axes : 62 -78 95 degrees QTcB Int : 518 ms Atrial-sensed ventricular-paced rhythm Abnormal ECG When compared with ECG of 11-Mar-2024 23:12, Vent. rate has decreased by 5 bpm Confirmed by Fan Day ([id number]) on 03/19/2024 9:25:30 PM Referred By: [facility] Confirmed By: Fan Day
--- NOTE | 2024-03-19 21:26 | Electrocardiogram Report ---
Test Reason : Blood Pressure : */* mmHG Vent. Rate : 63 BPM Atrial Rate : 63 BPM P-R Int : 182 ms QRS Dur : 212 ms QT Int : 504 ms P-R-T Axes : 51 -77 99 degrees QTcB Int : 515 ms Atrial-sensed ventricular-paced rhythm with intermittent AV paced complexes Abnormal ECG When compared with ECG of 16-Mar-2024 23:49, Vent. rate has decreased by 18 bpm Confirmed by Fan Day ([id number]) on 03/19/2024 9:26:16 PM Referred By: [facility] Confirmed By: Fan Day
[2024-03-20] MEDS: VANCOMYCIN HCL 1,500 MG in SODIUM CHLORIDE 0.9% 500 ML IV SCH (00:15)
[2024-03-20 06:08] LABS: Base Excess VBG 16.1 mEq/L; HCO3 VBG 44 mmol/L; Oxygen Saturation VBG 97.1 %; PCO2 VBG 70 mmHg (38-50); PO2 VBG 83 mmHg; pH VBG 7.41 (7.36-7.41)
[2024-03-20 06:56] LABS: Albumin Level 2.9 gm/dl (3.4-5.0); BUN Creatinine Ratio 30.3 (10-20); Bilirubin,Total 0.3 mg/dl (0.2-1.0); Calcium 8.8 mg/dl (8.6-10.3); Creatinine Clr Calc Pharmacy 95.5 ml/min; Potassium 4.4 mmol/L (3.5-5.1); Total Protein 5.9 gm/dl (6.0-8.3)
--- NOTE | 2024-03-20 09:28 | Pulmonology Progress Note ---
Date of Service March 20, 2024 Assessment & Plan (1) Chronic combined systolic and diastolic CHF (congestive heart failure): (2) Respiratory failure with hypoxia and hypercapnia: (3) COVID: (4) COPD (chronic obstructive pulmonary disease): (5) Multifocal pneumonia: Plan 78 morbidly obese female with underlying COPD, Obesity hypoventilation syndrome, HFrEF admitted to hospital with hypercarbic and hypoxic respiratory failure CT chest 03/17/2024 personally reviewed: Motion degraded study Dense consolidative process appreciated in the left lower lobe Chronic history of volume loss on the left side Cardiomegaly No significant mediastinal lymphadenopathy VBG 03/17/2024: 7.36/78/53 --Acute on chronic hypercapnic hypoxic respiratory failure Multifactorial Left lower lobe pneumonia COPD as well as ANJALI/OHS and cor pulmonale Respiratory BioFire positive for COVID-19 Procalcitonin 0.1, nasal MRSA positive BNP 138 --COPD with emphysema On Trelegy 200 at home Does not seem to be in exacerbation --ANJALI/OHS Used to have AVAPS machine at home but she stopped using it because of trigeminal neuralgia Trigeminal neuralgia has improved, trial of BiPAP nightly --Metabolic alkalosis Likely compensation for chronic respiratory acidosis Admission and Anticipated Discharge Date Admission Date: March 17, 2024 Supervising Physician Co-Signing Physician Notes I saw and evaluated the patient with Kerwin Barfield PA-C, and agree with findings and plan as documented in the note. Patient seen and examined at bedside. No acute distress, no adverse events overnight She tried to use the BiPAP overnight but only use it for couple of hours Overall she is feeling the same. Her breathing does seem to be improved Still coughing up chunks of phlegm which is clear. No hemoptysis Fair appetite Constitutional: No acute distress HEENT: EOMI, PERRLA, malar rash Respiratory system: Decreased air entry bilaterally, no wheeze, no rhonchi, positive crackles bilateral lower lobes CVS: S1-S2 positive, no murmurs or gallops Abdomen: Soft, nontender, nondistended, positive bowel sounds x4, obese Extremities: +2 pulses bilaterally radialis/ dorsalis pedis, no cyanosis, +1 pitting edema bilateral lower extremity Neuro: Awake alert oriented x3 Psych: Normal mood and affect G/U: Chronic indwelling Rodriguez Plan: Continue with antibiotic coverage. Defer ongoing antibiotic selection to infectious disease, especially in the setting of complicated urinary tract infections. She is to be seen by them today. Sputum culture is negative to date I am not certain if the patient's presentation is because of COVID-19, okay to DC remdesivir. She will benefit from BiPAP nightly. Unfortunately, she was unable to tolerate BiPAP for greater than an hour or 2 overnight. Recommend to repeat a CAT scan of the chest in 6 weeks to look at the left lower lobe opacity Case was discussed with primary team No further recommendation from pulmonary perspective, will sign off Please call directly with any questions Please note the above document was generated using voice recognition software. It may contain grammatical, syntax or spelling errors.Any formal questions or concerns about the content, text or information contained within the body of th is dictation should be directly addressed to the provider for clarification. Subjective Patient seen and evaluated at bedside. She reports feeling better today. She reports less confusion. She is coughing, but it is improved somewhat. She was unable to wear the last evening secondary to anxiety and sensation of claustrophobia. Review of Systems Review of Systems: As per HPI. Physical Exam Physical Exam: VITAL SIGNS Vital signs and nursing notes were reviewed. GENERAL 78-year-old female appearing her stated age who is in no acute distress. Communicates well with provider and answers questions appropriately. SKIN Without rashes or lesions. NOSE Midline and without cyanosis. No epistaxis or purulent drainage noted. MOUTH/OROPHARYNX Without perioral cyanosis. Buccal mucosa pink and moist and without leukoplakia or thrush. NECK Neck with FROM. LUNGS Chest wall evaluation demonstrates normal chest wall A:P diameter. Auscultation reveals diminished breath sounds at the lung bases. CARDIAC RRR with S1/S2. No murmur, rubs, or gallops appreciated. PSYCH A&Ox3 and cooperates fully with examiner. Pt is very pleasant and int eracts well with examiner. Skin: no rashes, warm and dry Lymphatic: no cervical or axillary lymphadenopathy Results & Data Results & Data Vital Signs (Past 12 Hours) Vital Signs Temp Pulse Pulse Resp BP BP Pulse Ox 03/20/24 07:46 36.5 C 57 L 19 181/76 H 97 03/20/24 07:35 62 17 96 03/20/24 03:12 36.8 C 60 18 150/80 H 97 03/20/24 00:00 67 03/19/24 22:40 36.6 C 64 18 163/79 H 95 O2 Del Method O2 Flow Rate 03/20/24 07:46 Nasal Cannula 2 03/20/24 07:35 Nasal Cannula 2 03/20/24 03:12 Nasal Cannula 2 03/20/24 00:00 03/19/24 22:40 Room Air PG Care Time/CCT Total # of Minutes Spent Total Time Spent with Patient: Total time spent is greater than 50% in coordination of care (as documented) at patient's floor/unit and/or counseling patient: Coding Level of Care Code 00997 SUB INP/OBS CARE 235MIN Diagnoses Chronic combined systolic and diastolic CHF (congestive heart failure) I50.42 Respiratory failure with hypoxia and hypercapnia J96.91; J96.92 COVID U07.1 COPD (chronic obstructive pulmonary disease) J44.9 Multifocal pneumonia J18.9
[2024-03-20] MEDS: LANTUS PER UNIT CHARGE SQ SCH (09:34)
--- NOTE | 2024-03-20 16:04 | Infectious Disease Consult ---
Date of Consultation March 20, 2024 Assessment & Plan (1) Respiratory failure with hypoxia and hypercapnia: (2) Multifocal pneumonia: (3) COVID: (4) Acute UTI: Plan ID Problem List: 1. Covid-19 infection 2. LLL pneumonia, possibly superimposed bacterial pna in addition to Covid-19 3. Possible UTI, UCx + ESBL E. coli 4. Hypoxemic respiratory failure, improving Impression: Sonya Alvarez is a 78-year-old woman with history of COPD, CHF and HLP, presenting from [facility] to [facility] on 03/17/24 with lethargy, SOB, weakness, and hypoxemia, found to have + Covid-19 infection, LLL pneumonia, and possible UTI. ID is consulted for pneumonia and UTI. The patient was recently admitted to [facility] 03/12 - 03/14 with metabolic encephalopathy which was attributed to ESBL E. coli UTI; she was treated with pip-tazo and discharged to [facility] on Augmentin. She returns with reported symptoms of shortness of breath, weakness, and fatigue. Upon presentation, VS T37.8 BP 122/80 SpO2 91% on RA -> became hypoxemic and placed on oxymask. Labs showed WBC 9.18 Hgb 13.5 plt 152 Cr 1.06 LFTs wnl. UA on 03/12 with >50 WBCs, 6-10 RBCs, >20 epis. Initial respiratory pathogen panel on 03/12 negative. 03/12 CXR was limited but without definite airspace consolidation, 03/12 UCx + ESBL E. coli. She was started on meropenem. 03/17 respiratory pathogen with + Covid-19 and pt was placed on remdesivir and dexamethasone. 03/17 CT chest with LLL consolidation/collapse, RUL calcified nodule and lymph nodes c/w old granuloma. MRSA nares positive. Vancomycin was added on 03/19. 03/19 sputum Cx with only scant normal khloe. At the time of evaluation, the patient reports that she feels much better and that she is coughing up sputum. She feels close to her usual self and wishes to return to [facility] facility. She denies any pain or discomfort. Discussion Pt presented with AMS and respiratory symptoms, found to have Covid-19 infection. She also has a significant productive cough and 03/17 CT showing LLL consolidation/collapse. Note + MRSA nares; otherwise sputum Cx from 03/19 with only normal khloe. It is not clear that the patient had a true ESBL E. coli UTI given that her primary presentation appears to be primarily respiratory though upon initial presentation with a negative Covid-19 test and clear CXR (limited by body habitus) and 03/17 RPP + Covid-19 and showing the lobar consolidation. She did have low-grade fevers and was altered upon presentation. Can continue vancomycin and ertapenem while inpatient (which will cover superimposed bacterial pna as well as possible UTI nearly completed UTI course). If improving and discharging, can transition to linezolid + Augmentin to complete a 2-week course for pna (noting + MRSA nares out of caution, though negative sputum Cx). Given her dense consolidation, suggest repeat CT chest in ~2 weeks to evaluate for improvement. Recommendations: - Change to ertapenem 1g IV q24h, continue while inpatient - Continue IV vancomycin (doxing per Rx) while inpatient - Treatment of Covid-19 with remdesivir and dexamethasone as you are - If improving and will be discharging, can change to linezolid 600 mg PO BID and Augmentin 875 mg PO BID to complete a 2-week course (03/1904/01/24 for possible superimposed bacterial pneumonia) - Suggest repeat CT chest around 03/29 or 03/30 to ensure that consolidation is improving - Ensure close follow up with primary care/facility provider Thank you for letting ID participate in the care of this patient. ID will sign off at this time. If questions, please contact the [facility] call [facility] at [phone]. Ying Ellis MD, MHS Infectious Diseases [facility] Connect ID Connect direct line: [phone] Consultation Information Consultation was provided via telemedicine using two-way real-time interactive telecommunication between the patient and the telemedicine provider. For the duration of the visit, the provider was performing the assessment from a different facility than the patient. This includesuse of bluetooth stethoscope forauscultationperformed by the telepresenter that the telemedicine provider can hear if described in the physical exam. Tanker Service Attendant contact information: Please call [facility] Connect Call Center [phone]. (Phone Number For Physician Use Only) After establishing a telemedicine visit, patient was: Patient was verified with two unique identifiers, Patient/authorized rep acknowledged consent and understanding and Gave permission to continue telehealth session Time Spent with Patient: Initial => 75 min History of Present Illness Reason for Consultation: pneumonia, UTI Attending Physician: Saritha Hook MD History of Present Illness Sonya Alvarez is a 78-year-old woman with history of COPD, CHF and HLP, presenting from [facility] to [facility] on 03/17/24 with lethargy, SOB, weakness, and hypoxemia, found to have + Covid-19 infection, LLL pneumonia, and possible UTI. ID is consulted for pneumonia and UTI. The patient was recently admitted to [facility] 03/12 - 03/14 with metabolic encephalopathy which was attributed to ESBL E. coli UTI; she was treated with pip-tazo and discharged to [facility] on Augmentin. She returns with reported symptoms of shortness of breath, weakness, and fatigue. Upon presentation, VS T37.8 BP 122/80 SpO2 91% on RA -> became hypoxemic and placed on oxymask. Labs showed WBC 9.18 Hgb 13.5 plt 152 Cr 1.06 LFTs wnl. UA on 03/12 with >50 WBCs, 6-10 RBCs, >20 epis. Initial respiratory pathogen panel on 03/12 negative. 03/12 CXR was limited but without definite airspace consolidation, 03/12 UCx + ESBL E. coli. She was started on meropenem. 03/17 respiratory pathogen with + Covid-19 and pt was placed on remdesivir and dexamethasone. 03/17 CT chest with LLL consolidation/collapse, RUL calcified nodule and lymph nodes c/w old granuloma. MRSA nares positive. Vancomycin was a dded on 03/19. 03/19 sputum Cx with only scant normal khloe. At the time of evaluation, the patient reports that she feels much better and that she is coughing up sputum. She feels close to her usual self and wishes to return to [facility] facility. She denies any pain or discomfort. Allergies Allergy/AdvReac Type Severity Reaction Status Date / Time chocolate flavor Allergy Intermediate Headache Verified 02/20/24 14:30 erythromycin base Allergy Intermediate CONFUSION, Verified 02/20/24 14:30 HEADACHE nitrofurantoin Allergy Intermediate 15 Verified 02/20/24 14:30 different symptoms Home Medications Medication Instructions Recorded Confirmed Type pen needle, diabetic 31 gauge x #100 ea 06/11/21 03/17/24 Rx 5/16" (Comfort EZ Pen [place]) atorvastatin 10 mg tablet 10 mg PO 3XWK #36 tabs 09/29/21 03/17/24 Rx omeprazole 20 mg capsule,delayed 20 mg PO QAM #90 caps 10/21/21 03/17/24 Rx release acetaminophen 500 mg tablet 1,000 mg PO Q8H PRN fever/pain 02/07/23 03/17/24 History (Tylenol Extra Strength) levothyroxine 50 mcg tablet 50 mcg PO DAILY 02/07/23 03/17/24 History bisacodyl 10 mg rectal suppository 10 mg DC DAILY PRN Constipation 05/22/23 03/17/24 History (Dulcolax (bisacodyl)) fluticasone propionate 50 2 spray intranasal QAM 05/22/23 03/17/24 History mcg/actuation nasal spray,suspension guaifenesin 600 mg tablet, 600 mg PO Q12H 05/22/23 03/17/24 History extended release 12 hr (Mucinex) insulin glargine 100 unit/mL 35 unit subcut AMHS 05/22/23 03/17/24 History subcutaneous solution (Lantus U-100 Insulin) insulin lispro 100 unit/mL 1 sliding scale dose subcut 05/22/23 03/17/24 History subcutaneous solution (Humalog USEASDIRECTD U-100 Insulin) ipratropium 0.5 mg-albuterol 3 mg 3 ml inhalation Q2H PRN 05/22/23 03/17/24 History (2.5 mg base)/3 mL nebulization SOB/wheezing soln ipratropium 0.5 mg-albuterol 3 mg 3 ml inhalation QID 05/22/23 03/17/24 History (2.5 mg base)/3 mL nebulization soln lorazepam 0.5 mg tablet 0.25 mg PO DAILY PRN Anxiety 05/22/23 03/17/24 History menthol 4 % topical gel (Biofreeze 1 applic topical Q8H PRN Pain 05/22/23 03/17/24 History (menthol)) sodium phosphates 19 gram-7 118 ml DC DAILY PRN Constipation 05/22/23 03/17/24 History gram/118 mL enema (Fleet Enema) carvedilol 3.125 mg tablet 3.125 mg PO BIDM #30 tabs 05/26/23 03/17/24 Rx Saccharomyces boulardii 250 mg 250 mg PO AMHS 03/12/24 03/17/24 History capsule (Florastor) buspirone 15 mg tablet 15 mg PO TID 03/12/24 03/17/24 History calcium carbonate 1,000 mg PO Q6 PRN Indigestion 03/12/24 03/17/24 History divalproex 250 mg tablet,delayed 250 mg PO BID 03/12/24 03/17/24 History release fluticasone fur. 200 mcg-umeclid 1 inh inhalation QAM 03/12/24 03/17/24 History 62.5 mcg-vilant 25 mcg inhalat.powder (Trelegy Ellipta) furosemide 40 mg tablet 40 mg PO BID 03/12/24 03/17/24 History gabapentin 300 mg capsule 600 mg PO TID 03/12/24 03/17/24 History polyethylene glycol 3350 17 17 g PO AMHS 03/12/24 03/17/24 History gram/dose oral powder (Miralax) potassium chloride 10 mEq 10 meq PO QAM 03/12/24 03/17/24 History tablet,extended release(part/cryst) prednisone 5 mg tablet 5 mg PO QAM 03/12/24 03/17/24 History simethicone 80 mg chewable tablet 160 mg PO AMHS 03/12/24 03/17/24 History tramadol 50 mg tablet 50 mg PO Q6 PRN pain 9-10 03/12/24 03/17/24 History triamcinolone acetonide 0.1 % 1 applic topical BID 03/12/24 03/17/24 History topical cream venlafaxine 75 mg tablet,extended 225 mg PO QAM 03/12/24 03/17/24 History release 24 hr amoxicillin 875 mg-potassium 1 tab PO BID #14 tabs 03/14/24 03/17/24 Rx clavulanate 125 mg tablet nystatin 100,000 unit/gram topical 1 applic topical BID 03/17/24 03/17/24 History powder (Nyamyc) Patient History Medical History Cheilitis Panniculitis Candidal intertrigo Chronic respiratory failure with hypoxia, on home O2 therapy Renal colic Proctitis History of renal stent Pyelonephritis Nephrolithiasis 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) Syncope and collapse (06/03/13) Rectal abscess Vertigo Surgical History History of biopsy of temporal artery History of colonoscopy (~06/2010) History of dilation and curettage History of neurologic surgery rhizotomy History of appendectomy History of total abdominal hysterectomy Reports KERRI-BSO S/P knee replacement S/P cholecystectomy Family History Family/Other Hypertension Diabetes Cancer Adopted Heart disease Grandmother Diabetes Heart disease Grandfather Heart disease Aunt Cancer Uncle Cancer Other No pertinent family history in first degree relatives Social History Smoking Status: Unknown if ever smoked Second Hand Exposure: Yes; Do You Dip or Chew Tobacco: No; Preferred Language: Cymro Communication Ability: Effective Rectification Printer Required: No Beliefs That Will Affect Care: None marital status: / Current Living Situation: Long-Term Current Living Situation Comment: Lives at [facility] Other Information That Helps Us Care for You: No Feels Safe at Home: Yes Assistive Devices: Mechanical Lift and Wheelchair Physical Exam Physical Exam: Exam obtained with aid of in-person telepresenter. General: Well-appearing, no acute distress HEENT: Conjunctivae non-injected, sclerae anicteric, MMM, OP clear. Resp: Respirations nonlabored. Wearing 2L nc Abd: Soft, nontender, nondistended. Ext: Warm and well-perfused, no edema. No joint warmth or effusions noted. Skin: BLE with blistering and plaques of shins Neuro: Alert & interactive. Grossly non-focal. Psych: Pleasant, appropriate. Results & Data Vital Signs (Past 12 Hours) Vital Signs Temp Pulse Pulse Resp BP BP Pulse Ox 03/20/24 15:27 66 19 96 03/20/24 15:25 36.6 C 66 19 171/75 H 96 03/20/24 14:25 65 03/20/24 11:26 64 20 95 03/20/24 10:46 36.5 C 61 19 170/74 H 92 03/20/24 09:33 152/78 H 03/20/24 08:30 64 03/20/24 08:30 03/20/24 07:46 36.5 C 57 L 19 181/76 H 97 03/20/24 07:35 62 17 96 O2 Del Method O2 Flow Rate 03/20/24 15:27 Nasal Cannula 2 03/20/24 15:25 Nasal Cannula 2 03/20/24 14:25 03/20/24 11:26 Nasal Cannula 2 03/20/24 10:46 Nasal Cannula 2 03/20/24 09:33 03/20/24 08:30 03/20/24 08:30 Nasal Cannula 03/20/24 07:46 Nasal Cannula 2 03/20/24 07:35 Nasal Cannula 2 Diagnostic Findings Diagnostics: 03/17 CTA Chest 1. Pulmonary arterial hypertension. 2. No evidence of pulmonary embolism. 3. Left lower lung lobe consolidation/collapse. A stable finding since the last CR and a new finding since the last CT study. 4. Right upper lung lobe calcified nodule and calcified lymph nodes likely old granuloma. 5. Cardiomegaly. Micro Data: 03/19 Sputum: scant normal khloe; gram stain many epis/many polys, no orgs 03/17 UCx: <1k growth 03/17 respiratory pathogen panel: SARS-CoV-2 detected; otherwise neg 03/17 BCx x2: NGTD 03/12 UCx: ESBL E. coli (S-te/erta/Bactrim/tobramycin; R-cipro/levo) 03/12 BCx x2: NG 03/12 MRSA nares: positive 03/12 respiratory pathogen panel: neg prior 11/25/23 UCx: Proteus mirabilis, Pseudomonas aeruginosa 10/24/23 UCx: Proteus mirabilis, ESBL E. coli Antibiotic Summary: ertapenem (03/20 present) vancomycin (03/19 present) prior meropenem (03/16 03/20)
--- NOTE | 2024-03-20 17:01 | Hospitalist Progress Note ---
Date of Service March 20, 2024 Assessment & Plan (1) COVID: Plan: Patient here with COVID with left lower lobe collapse and consolidation, possible secondary bacterial superimposed pneumonia. With acute on chronic respiratory failure with hypoxia and hypercarbia Continue Remdesivir, dexamethasone Continue supplemental O2 and wean off as able to-down to 2LNC She is not able to tolerate BiPAP therapy due to her trigeminal neuralgia but can continue to trial hs as able With superimposed secondary bacterial pneumonia, was on meropenem and vancomycin given MRSA nasal swab positive--> ID consulted and recommends ertapenem and Vanco, change to linezolid and Augmentin on discharge Appreciate pulmonology consultation Continue incentive spirometry and flutter valve F/u sputum culture Follow CBC, BMP (2) Multifocal pneumonia: Plan: CHest CT with LLL consolidation and collapse with volume loss Treatment as above, needs f/u chest CT in 6 weeks to ensure resolution (3) Acute UTI: Plan: from previous admission with ESBL E. coli, had 3 days of IV Zosyn then discharged to SNF on AUgmentin x 2 days Now on meropenem and ID recommends changing to ertapenem Will complete course for UTI on 03/21 has chronic Rodriguez (4) Metabolic encephalopathy: Plan: Etiology multi-factorial from chronic, bedbound state @ [facility] with morbid obesity with BMI 46.8 (height 175.3 cm; weight 143.6 kg) along with presumed obesity hypoventilation syndrome And acute COVID PNA. Now resolved (5) Respiratory failure with hypoxia and hypercapnia: Plan: Secondary to obesity hypoventilation syndrome and COPD, and pneumonia with left lower lobe collapse on CT chest Intolerant of BiPAP Appreciate pulmonology consultation Continue supplemental O2 to keep pulse ox greater than 88% She is currently on IV dexamethasone but is on chronic prednisone 5-10 mg daily- resume this after IV Decadron completed Continue bronchodilators and inhaled corticosteroids, flutter valve, ICS (6) Elevated troponin: Plan: Troponin mildly elevated at 43, 46, 44 serially, ECG paced and no ischemic changes, no chest pain Echo here with LVEF 45%, global hypokinesis, abnormal septal motion consistent with pacemaker Elevated troponin likely from myocardial demand ischemia in the setting of pneumonia and hypoxemia (7) Chronic combined systolic and diastolic CHF (congestive heart failure): Plan: Not acute exacerbation of chronic systolic/diastolic CHF as patient reports no weight gain above and beyond her dry baseline weight of 320 pounds @ [facility] Continue home carvedilol, furosemide Strict I's and O's, daily weights Plan Chronic medical conditions: Permanent pacemaker-in place for complete heart block Functioning well Trigeminal neuralgia: Home gabapentin is on hold-will resume this now that encephalopathy is improved Continue Depakote Hyperlipidemia -Continue Atorvastatin Anxiety -Continue Buspirone and Venlafaxine Diabetes -Blood sugars were low and reduced Lantus to 30 units once daily Now creeping back up--> lower goal range to 110-140 and lower CF to 30 for SSI Hypothyroid -TSH here is normal at 2.3 -Continue Synthroid DVT prophylaxis-Lovenox SQ Disposition-continued stay on telemetry, eventually back to halfway at [facility] likely tomorrow Admission and Anticipated Discharge Date Admission Date: March 17, 2024 Subjective Pt feeling better, feels the sore on her bottom is less painful. Is coughing up sputum and feels better with using flutter valve. I discussed her care with the Quality Process Lead Tele with paced rhythm, rates in 60s Physical Exam Constitutional: WD/WN, vitals as above + morbidly obese Respiratory: normal respiratory effort Auscultation: + diminished lung sounds (At left base) and + rhonchi (left lower lung field); no crackles and no wheezes Cardiovascular: Rate/Rhythm: regular rate and regular rhythm Heart Sounds: no murmur Extremities: + edema (2+ chronic edema with venous stasis changes legs bilaterally) Gastrointestinal (Abdomen): normal bowel sounds, soft, nontender, no hepatosplenomegaly Psychiatric: A+Ox3, euthymic affect Results & Data Results & Data Vital Signs (Past 12 Hours) Vital Signs Temp Pulse Pulse Resp BP BP Pulse Ox 03/20/24 15:27 66 19 96 03/20/24 15:25 36.6 C 66 19 171/75 H 96 03/20/24 14:25 65 03/20/24 11:26 64 20 95 03/20/24 10:46 36.5 C 61 19 170/74 H 92 03/20/24 09:33 152/78 H 03/20/24 08:30 64 03/20/24 08:30 03/20/24 07:46 36.5 C 57 L 19 181/76 H 97 03/20/24 07:35 62 17 96 O2 Del Method O2 Flow Rate 03/20/24 15:27 Nasal Cannula 2 03/20/24 15:25 Nasal Cannula 2 03/20/24 14:25 03/20/24 11:26 Nasal Cannula 2 03/20/24 10:46 Nasal Cannula 2 03/20/24 09:33 03/20/24 08:30 03/20/24 08:30 Nasal Cannula 03/20/24 07:46 Nasal Cannula 2 03/20/24 07:35 Nasal Cannula 2 Laboratory Results CBC, CMP, sputum cx, blood cxs reviewed PG Care Time/CCT Total # of Minutes Spent Total Time Spent with Patient: Total time spent is greater than 50% in coordination of care (as documented) at patient's floor/unit and/or counseling patient: Coding Level of Care Code 67758 SUB INP/OBS CARE MIN Diagnoses COVID U07.1 Multifocal pneumonia J18.9 Acute UTI N39.0 Metabolic encephalopathy G93.41 Respiratory failure with hypoxia and hypercapnia J96.91; J96.92 Elevated troponin R79.89 Chronic combined systolic and diastolic CHF (congestive heart failure) I50.42
[2024-03-20] MEDS: ERTAPENEM 1000MG 1,000 MG/10 ML SYR IV SCH (17:56)
[2024-03-20] MEDS: GABAPENTIN 300 MG CAP PO SCH (20:36)
[2024-03-21 07:07] LABS: Hematocrit (blood only) 34.4 % (37.0-47.0); Mean Corpuscular Hemoglobin 28.8 pg (25.0-34.0); Mean Corpuscular Volume 90.1 fL (80.0-100.0); Mean Platelet Volume 9.8 fL (9.4-12.4); Platelet Count 220 K/uL (130-400); RDW Coefficient of Variation 13.5 % (11.5-14.5); RDW Standard Deviation 44.4 fL (36.4-46.3); Red Blood Count 3.82 M/uL (4.20-5.40); White Blood Count 5.38 K/ul (4.8-10.8)
[2024-03-21 07:24] LABS: BUN Creatinine Ratio 32.4 (10-20); C Reactive Protein 2.89 mg/dl (0-0.5); Calcium 8.8 mg/dl (8.6-10.3); Creatinine Clr Calc Pharmacy 102.3 ml/min; Magnesium 1.6 mg/dl (1.7-2.4); Potassium 4.3 mmol/L (3.5-5.1)
[2024-03-21 07:56] LABS: Basophils # (auto) 0.04 K/uL (0.00-0.20); Basophils % (auto) 0.7 %; Eosinophils # (auto) 0.03 K/uL (0.00-0.50); Eosinophils % (auto) 0.6 %; Immature Granulocytes # (auto) 0.28 K/uL (0.01-0.20); Immature Granulocytes % (auto) 5.2 %; Lymphocytes # (auto) 2.14 K/uL (1.20-3.40); Lymphocytes % (auto) 39.8 %; Monocytes # (auto) 0.48 K/uL (0.11-0.59); Monocytes % (auto) 8.9 %; Neutrophils # (auto) 2.41 K/uL (1.40-6.50); Neutrophils % (auto) 44.8 %
[2024-03-21] MEDS: MAGNESIUM SULFATE / D5W 1 GM/100 ML BAG IV ONE (10:59)
--- NOTE | 2024-03-21 11:11 | Discharge Summary ---
Discharge Summary Date of Service March 21, 2024 Principal Dx & Hospital Course #1 = Principal Diagnosis (1) COVID: Patient here with COVID with left lower lobe collapse and consolidation, with secondary bacterial superimposed pneumonia. With acute on chronic respiratory failure with hypoxia and hypercarbia Received Remdesivir x 4 days, dexamethasone, convert back to usual prednisone dose Continue supplemental O2 and wean off as able to-down to 2LNC She is not able to tolerate BiPAP therapy due to her trigeminal neuralgia With superimposed secondary bacterial pneumonia, was on meropenem and vancomycin given MRSA nasal swab positive--> ID consulted and recommends ertapenem to complete 7 day course for UTI on 03/21. Continued Vanco while in hospital Convert abx to Augmentin and doxycycline to finish through 04/01/24 for PNA Appreciate pulmonology consultation Continue incentive spirometry and flutter valve F/u sputum culture-negative (2) Multifocal pneumonia: CHest CT with LLL consolidation and collapse with volume loss Treatment as above, needs f/u chest CT in 6 weeks to ensure resolution-PULM should order after discharge Needs f/u with Dr. Montgomery of PULM after discharge (3) Acute UTI: from previous admission with ESBL E. coli, had 3 days of IV Zosyn then discharged to SNF on AUgmentin x 2 days Now on meropenem and ID recommended changing to ertapenem Will complete course for UTI on 03/21 has chronic Rodriguez which was exchanged on 03/12/24 (4) Metabolic encephalopathy: Etiology multi-factorial from chronic, bedbound state @ [facility] with mor bid obesity with BMI 46.8 (height 175.3 cm; weight 143.6 kg) along with presumed obesity hypoventilation syndrome And acute COVID PNA. Now resolved Can resume usual doses of gabapentin Also is on tramadol and ativan prn at [facility] but did not require any doses throughout her whole stay here (5) Respiratory failure with hypoxia and hypercapnia: Secondary to obesity hypoventilation syndrome and COPD, and pneumonia with left lower lobe collapse on CT chest Intolerant of BiPAP Appreciate pulmonology consultation Continue supplemental O2 to keep pulse ox greater than 88% She is currently on IV dexamethasone but is on chronic prednisone 5-10 mg daily- resume this after IV Decadron completed Continue bronchodilators and inhaled corticosteroids, flutter valve, ICS (6) Elevated troponin: Troponin mildly elevated at 43, 46, 44 serially, ECG paced and no ischemic changes, no chest pain Echo here with LVEF 45%, global hypokinesis, abnormal septal motion consistent with pacemaker Elevated troponin likely from myocardial demand ischemia in the setting of pneumonia and hypoxemia (7) Chronic combined systolic and diastolic CHF (congestive heart failure): Not acute exacerbation of chronic systolic/diastolic CHF as patient reports no weight gain above and beyond her dry baseline weight of 320 pounds @ [facility] Continue home carvedilol, furosemide Strict I's and O's, daily weights Plan Chronic medical conditions: Permanent pacemaker-in place for complete heart block Functioning well Trigeminal neuralgia: Home gabapentin is on hold-will resume this now that encephalopathy is improved Continue Depakote Hyperlipidemia -Continue Atorvastatin Anxiety -Continue Buspirone and Venlafaxine Diabetes -Blood sugars were low and reduced Lantus to 30 units once daily while here but glucose crept back up with HgbA1C recently 8.1% and returning to home diet--> resume usual doses of insulin Hypothyroid -TSH here is normal at 2.3 -Continue Synthroid DVT prophylaxis-Lovenox SQ Disposition-dc to [place] at [facility] Notes For Next Care Provider Needs CT Chest in 6 weeks Medication Changes From Visit Added doxycycline and Augmentin 875mg bid x 11 more days Admission HPI Per Admitting Provider 78yo female with h/o COPD, CHF and HLP presenting from [facility] with lethargy, SOB, weakness and hypoxia. Patient recently admitted to [facility] 03/12 - 03/14 with metabolic encephalopathy d/t ESBL E. coli UTI. She was treated with Zosyn and sent to [facility] on A ugmentin. Returns with ongoing SOB, generalized weakness, fatigue. Patient unable to provide details of events. History obtained from chart review Discharge Exam Constitutional WD/WN, vitals as above + morbidly obese Respiratory normal respiratory effort Auscultation: + diminished lung sounds (At left base); no crackles and no wheezes Cardiovascular Rate/Rhythm: regular rate and regular rhythm Heart Sounds: no murmur Extremities: + edema (2+ chronic edema with venous stasis changes legs bilaterally) Gastrointestinal (Abdomen) normal bowel sounds, soft, nontender, no hepatosplenomegaly Psychiatric A+Ox3, euthymic affect Discharge Plan Discharge Items Patient Disposition: Transfer Halfway Fac Reason For Visit: COVID-19, WEAKNESS Discharge Diagnosis: Pneumonia COVID-19 Acute metabolic encephalopathy Activity: Resume your previous activity Non-emergency contact: Primary Care Provider Call non-emergency contact if: you have any medication questions and your s ymptoms worsen Follow-up/Referrals: [facility] [Primary Care Provider] - Diet: Carb Consistent or DM2 and Low Sodium (2gm) Addtl Attending Provider Instructions: Please finish out the course of antibiotics with Augmentin and doxycycline, both twice a day, for your pneumonia. You will need a repeat CT scan of your chest near the end of May-your [employer] Specialist will order this for you. Please continue on the 2L of oxygen. it is recommended that you use BiPAP at night, but you are declining this due to your trigeminal neuralgia. You were treated with Remdesivir and dexamethasone for COVID and these courses are now complete. You also finished out a course of ertapenem for your previous UTI. Your Rodriguez catheter was last exchanged on 03/12/24 and should continue to be exchanged once monthly. Pending Studies at Discharge: No Stand-Alone Forms: My [facility] Skilled Items Patient informed of condition?: Yes DNR: Yes Discharge Level of Care: Skilled Communicable Disease: Yes (COVID-19, MRSA) Discharge Prognosis: Improving Lines: None Urinary Catheter: Yes Medications and DC Order Prescriptions: New doxycycline hyclate 100 mg tablet 100 mg PO BID Qty: 22 0RF Continued (DME) pen needle, diabetic [Comfort EZ Pen [place]] 31 gauge x 5/16" needle See Rx Instructions .Route Qty: 100 5RF Rx Instructions: 3 TIMES DAILY atorvastatin 10 mg tablet 10 mg PO 3XWK Qty: 36 3RF Rx Instructions: Mon/Weds/Fri omeprazole 20 mg capsule,delayed release(DR/EC) 20 mg PO QAM Qty: 90 3RF levothyroxine 50 mcg tablet 50 mcg PO DAILY acetaminophen [Tylenol Extra Strength] 500 mg tablet 1,000 mg PO Q8H MDD 3G PRN (Reason: fever/pain) ipratropium-albuterol 0.5 mg-3 mg(2.5 mg base)/3 mL Solution For Nebulization 3 ml INHALATION Q2H PRN (Reason: SOB/wheezing) ipratropium-albuterol 0.5 mg-3 mg(2.5 mg base)/3 mL Solution For Nebulization 3 ml INHALATION QID bisacodyl [Dulcolax (bisacodyl)] 10 mg Suppository 10 mg VT DAILY PRN (Reason: Constipation) Fleet Enema 19-7 gram/118 mL Enema 118 ml VT DAILY PRN (Reason: Constipation) insulin lispro [Humalog U-100 Insulin] 100 unit/mL Solution 1 sliding scale dose SUBCUT USEASDIRECTD Rx Instructions: 350-400=8U;401-450=12U;451-500=16U;501-550=18U; Recheck BS in 2h, prn fluticasone propionate 50 mcg/actuation [place],Suspension 2 spray INTRANASAL QAM Rx Instructions: administer into each nostril Biofreeze (menthol) 4 % Gel 1 applic TOPICAL Q8H PRN (Reason: Pain) Rx Instructions: neck, shoulders guaifenesin [Mucinex] 600 mg Tablet Extended Release 12hr 600 mg PO Q12H insulin glargine [Lantus U-100 Insulin] 100 unit/mL solution 35 unit subcut [facility]HS lorazepam 0.5 mg tablet 0.25 mg PO DAILY PRN (Reason: Anxiety) Rx Instructions: as needed for anxiety FOR 14 DAYS START 03/14/24 carvedilol 3.125 mg Tablet 3.125 mg PO BIDM Qty: 30 0RF divalproex 250 mg tablet,delayed release (DR/EC) 250 mg PO BID buspirone 15 mg tablet 15 mg PO TID Saccharomyces boulardii [Florastor] 250 mg Capsule 250 mg PO AMHS furosemide 40 mg tablet 40 mg PO BID gabapentin 300 mg capsule 600 mg PO TID potassium chloride 10 mEq tablet,ER particles/crystals 10 meq PO QAM prednisone 5 mg tablet 5 mg PO QAM polyethylene glycol 3350 [Miralax] 17 gram/dose Powder 17 g PO AMHS simethicone 80 mg Tablet,Chewable 160 mg PO AMHS venlafaxine 75 mg tablet extended release 24hr 225 mg PO QAM Rx Instructions: 3 tablet dose Trelegy Ellipta 200-62.5-25 mcg blister with device 1 inh INHALATION QAM tramadol 50 mg tablet 50 mg PO Q6 PRN (Reason: pain 9-10) triamcinolone acetonide 0.1 % cream 1 applic TOPICAL BID Rx Instructions: apply to abdomen and breast folds every day and evening shift calcium carbonate 500 mg calcium (1,250 mg) Tablet,Chewable 1,000 mg PO Q6 PRN (Reason: Indigestion) nystatin [Nyamyc] 100,000 unit/gram powder 1 applic TOPICAL BID Rx Instructions: APPLY TO BILATERAL GROIN RASH EVERY DAY AND EVENING SHIFT amoxicillin-pot clavulanate 875-125 mg tablet 1 tab PO BID Qty: 22 0RF Discharge Orders: Discharge Order (Routine); Ordered 03/21/24 Ordered By: Saritha Hook Admission Data Admit Date/Time: 03/17/24 02:38 Attending Provider: Saritha Hook Admit Provider: Gwen Alan Primary Care Provider: [facility] Other Providers: Gwen Alan; Jannet Montgomery Hospital Stay Data Consultations 03/17/24 01:32 ED Decision to Admit Stat 03/19/24 10:37 Consult Pulmonology Routine 03/20/24 07:43 Consult Infectious Diseases Routine Diagnostic Imagining Performed 03/17/24 01:29 CT angio chest PE protocol Stat Pending Results Patient Have Any Pending Studies at Discharge: No Discharge Instructions Given to Patient (Per Discharging Provider) Please finish out the course of antibiotics with Augmentin and doxycycline, both twice a day, for your pneumonia. You will need a repeat CT scan of your chest near the end of May-your [employer] Specialist will order this for you. Please continue on the 2L of oxygen. it is recommended that you use BiPAP at night, but you are declining this due to your trigeminal neuralgia. You were treated with Remdesivir and dexamethasone for COVID and these courses are now complete. You also finished out a course of ertapenem for your previous UTI. Your Rodriguez catheter was last exchanged on 03/12/24 and should continue to be exchanged once monthly. Total Time Total Time Spent Total Time Spent (In Minutes): 35 min Total Time Includes: Examination of the Patient, Discharge Planning, Medication Reconciliation and Communication With Other Providers (ID and PULM) Coding Level of Care Code 07260 INP/OBS DISCH >30 MIN Diagnoses COVID U07.1 Multifocal pneumonia J18.9 Acute UTI N39.0 Metabolic encephalopathy G93.41 Respiratory failure with hypoxia and hypercapnia J96.91; J96.92 Elevated troponin R79.89 Chronic combined systolic and diastolic CHF (congestive heart failure) I50.42
[2024-03-21] MEDS: ALBUTEROL HFA 8 GM INHALER INH PRN (11:17)
[2024-03-21 11:29] VITALS: RESP 20; TEMP 98.2; O2SAT 95
[2024-03-21 12:55] VITALS: BP 152/78; PULSE 62
== END 2024-03-21 13:43 | DRG 177 ==
LOC: ED 23:43 → SUATTDRO 03-17 02:38 → 2S 03-17 02:38

== ENCOUNTER 2024-03-28 18:41 | Inpatient (IN) ==
--- NOTE | 2024-03-28 18:59 | Emergency Department Note ---
Impression & Plan Weakness, Acute and chronic respiratory failure ED Provider Note Provider: Tigre Lawrence MD CHIEF COMPLAINT: More hypoxia, confusion HISTORY OF PRESENT ILLNESS: Patient is a 78-year-old female past medical history of pneumonia, CHF, chronic Rodriguez with history of ESBL UTIs, COPD on 2 L of oxygen, CKD, and recent COVID infection presenting here from [facility] via ambulance for evaluation this evening of some increased hypoxia and worsening confusion. Evidently having some trouble with words. Patient states she denies any shortness of breath or significant pain. Patient states she thought she was doing okay. Did not seem the perfect historian but did not seem to have significant focal deficits. Is bedbound at baseline with a chronic catheter. Staff evidently noted sometimes after 430 that she seemed more off than normal. She denies any new numbness. No traumas reported. Oxygen level is increased from a baseline of 2 L up to 4 L as she was increasingly hypoxic. PAST MEDICAL HISTORY: As noted above MEDICATIONS: Reviewed home medications currently on doxycycline or Augmentin SOCIAL HISTORY: Resides at [facility] PHYSICAL EXAM: GENERAL: alert and oriented to verbal stimuli in no acute distress on stretcher but not the best historian. Seems a little bit drowsy. Head: normocephalic and atraumatic EYES: No injection, discharge or icterus. PERRL, EOMI. NECK: Trachea midline. Supple. ENT: Mucous membranes pink and moist. LUNGS: Airway patent. No retractions. Breath sounds generally diminished left greater than right HEART: Regular rate and rhythm. No chest wall tenderness ABDOMEN: Soft and non-tender, without guarding or rebound. Chronic Rodriguez in place SKIN: Acyanotic, warm, dry, without rashes EXTREMITIES: Without significant tenderness 1-2+ swelling of the lower extremities with chronic skin changes without significant erythema or wound noted. NEUROLOGICAL: No focal deficits. No aphasia. No facial droop or slurred speech. Normal strength and tone in the extremities. Sensation to gross touch normal. EK bpm AV paced rhythm without PVC. QTc 475. Compared to previous CONTINUOUS CARDIAC MONITORING: was ordered and showed a heart rate of 70s bpm in AV paced rhythm Patient's laboratory studies and imaging reviewed. Differential includes Infection, dehydration, metabolic abnormality, hypo/hyperglycemia, electrolyte disturbance, anemia, hypoxia, cardiac sources, intracerebral event, toxicologic, neurologic, as well as other pathologies. IMPRESSION/MEDICAL DECISION MAKING: Reviewed discharge summary from March 21. Here with COVID and pneumonia as well as UTI at that point. Has been finishing a course of doxycycline Augmentin. She does have a CHF history as well. Does not appear in distress. VBG and lactate appear normal today without acidosis of though compensated with chronic hypercarbia. Did not seem to the significant focal deficit but CT head be completed as she is having maybe some word finding issues as well as CT of the chest given slightly increased hypoxia. There is no trauma history reported. She denies any pain. Known COVID will complete respiratory viral panel to see if additional coinfection's present. CT again to exclude PE and to further evaluate lung parenchyma given history of pneumonia. Blood work here without significant anemia or leukocytosis today. Do not believe she is septic at this point. Patient with normal renal function and troponin 26 is the lowest it has been on record here. Procalcitonin not elevated. TSH normal. Borderline potassium of 5.2 but normal sodium and BUN. No transaminitis. Patient still positive for COVID-19 but negative for other viruses. Chest x-ray per my review and interpretation as well as radiology report with a significant white count now of most of the left lung. CT of the head per radiology without acute intracranial bleed or findings. Some mastoid effusions I do not believe are pertinent to her presentation today and doubt mastoiditis. CT angiogram of the chest without evidence of PE but evidence of worsened consolidation throughout the left lung is now involving all cary as opposed to just lower lung from CT several weeks ago. There is now near complete collapse of the upper and lower lobes and now question of may be aspiration versus malignancy. Trace effusion. Given the increased oxygen requirement and her confusion will bring in for further care. Empirically given a dose of Zosyn for further antibiotic coverage given recent hospitalization and treatment for pneumonia. Patient is somewhat drowsy and discussed with the hospitalist BiPAP will be ordered this may also help reinflate some of her left lung. DIAGNOSIS: Confusion, acute on chronic respiratory failure, left lung consolidation DISPOSITION: Hospitalist will evaluate Patient was agreeable with this plan. Critical Care I have personally spent 42 minutes of critical care time in the direct management of this patient. This includes bedside care, interpretation of diagnostic studies, and testing, discussion with consultants, patient, and other required patient management activities. These 42 minutes is in excess of all separately billable procedures. Past Med/Surg History Problem List (Updated 03/28/24 @ 22:06 by Tigre Lawrence M.D.) Acute and chronic respiratory failure (Acute) Weakness (Acute) Multifocal pneumonia Chronic combined systolic and diastolic CHF (congestive heart failure) Respiratory failure with hypoxia and hypercapnia Hypochloremia Sterile pyuria Metabolic encephalopathy COVID Trigeminal neuralgia Hyperglycemia due to diabetes mellitus Acute hyperglycemia (Acute) Altered mental state (Acute) Acute dehydration (Acute) Acute UTI (Acute) CMC arthritis Carpal tunnel syndrome, left Idiopathic polyneuropathy Elevated brain natriuretic peptide (BNP) level (Acute) Elevated troponin (Acute) Acute respiratory failure with hypoxia and hypercapnia Acute respiratory failure with hypoxia Hyperkalemia (Acute) Recent urinary tract infection Urinary retention with incomplete bladder emptying Mixed stress and urge urinary incontinence Dry skin dermatitis HFrEF (heart failure with reduced ejection fraction) (HFpEF) heart failure with preserved ejection fraction COPD (chronic obstructive pulmonary disease) ARF (acute renal failure) Infection due to ESBL-producing Escherichia coli Urinary incontinence Hypokalemia Pneumonia Elevated troponin Respiratory distress (Acute) CHF (congestive heart failure) (Acute) Somnolence (Acute) Leukocytosis (Acute) Elevated CO2 level (Acute) Acute and chronic respiratory failure with hypercapnia (Acute) UTI (urinary tract infection) Anxiety with depression Hyperlipidemia Subcutaneous abscess (Acute) Cellulitis of female genitalia (Acute) Pneumonia due to 2019 novel coronavirus (Acute) Acute exacerbation of chronic obstructive pulmonary disease (Acute) Infection of lip COVID-19 Eczema Shoulder pain Urinary incontinence Diabetes (Acute) 1st degree AV block (Acute) Anxiety (Acute) Atrial paroxysmal tachycardia (Acute) Generalized osteoarthrosis, unspecified site (Acute) LAFB (left anterior fascicular block) (Acute) Mild obstructive sleep apnea (Acute) Morbid obesity (Acute) Nocturnal hypoxia (Chronic) Right bundle branch block (Acute) Venous insufficiency (chronic) (peripheral) (Acute) Venous stasis (Acute) Chronic kidney disease, stage III (moderate) Depression GERD (gastroesophageal reflux disease) COPD (chronic obstructive pulmonary disease) HTN (hypertension) (Chronic) Pacemaker (Chronic) Medical History Cheilitis Panniculitis Candidal intertrigo Chronic respiratory failure with hypoxia, on home O2 therapy Renal colic Proctitis History of renal stent Pyelonephritis Nephrolithiasis 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) Syncope and collapse (06/03/13) Rectal abscess Vertigo Surgical History History of biopsy of temporal artery History of colonoscopy (~06/2010) History of dilation and curettage History of neurologic surgery rhizotomy History of appendectomy History of total abdominal hysterectomy Reports KERRI-BSO S/P knee replacement S/P cholecystectomy Family History Family/Other Hypertension Diabetes Cancer Adopted Heart disease Grandmother Diabetes Heart disease Grandfather Heart disease Aunt Cancer Uncle Cancer Other No pertinent family history in first degree relatives Social History Smoking Status: Former smoker Tobacco Type: Cigarettes Second Hand Exposure: Yes; Do You Dip or Chew Tobacco: No; Hx Alcohol Use: No Hx Substance Use: No Preferred Language: Macedonian Communication Ability: Effective Electronic Wirer Required: No Beliefs That Will Affect Care: None marital status: / Current Living Situation: Group Home Current Living Situation Comment: [facility] at [facility] Feels Safe at Home: Yes Assistive Devices: Mechanical Lift and Wheelchair Allergies Allergies Allergy/AdvReac Type Severity Reaction Status Date / Time chocolate flavor Allergy Intermediate Headache Verified 02/20/24 14:30 erythromycin base Allergy Intermediate CONFUSION, Verified 02/20/24 14:30 HEADACHE nitrofurantoin Allergy Intermediate 15 Verified 02/20/24 14:30 different symptoms Home Meds Home Medications Medication Instructions Recorded Confirmed acetaminophen 500 mg tablet 1,000 mg PO Q8H PRN fever/pain 02/07/23 03/28/24 (Tylenol Extra Strength) levothyroxine 50 mcg tablet 50 mcg PO DAILY 02/07/23 03/28/24 bisacodyl 10 mg rectal suppository 10 mg NV DAILY PRN Constipation 05/22/23 03/28/24 (Dulcolax (bisacodyl)) fluticasone propionate 50 2 spray intranasal QAM 05/22/23 03/28/24 mcg/actuation nasal spray,suspension guaifenesin 600 mg tablet, 600 mg PO Q12H 05/22/23 03/28/24 extended release 12 hr (Mucinex) insulin glargine 100 unit/mL 35 unit subcut AMHS 05/22/23 03/28/24 subcutaneous solution (Lantus U-100 Insulin) insulin lispro 100 unit/mL 1 sliding scale dose subcut 05/22/23 03/28/24 subcutaneous solution (Humalog USEASDIRECTD U-100 Insulin) ipratropium 0.5 mg-albuterol 3 mg 3 ml inhalation Q2H PRN 05/22/23 03/28/24 (2.5 mg base)/3 mL nebulization SOB/wheezing soln ipratropium 0.5 mg-albuterol 3 mg 3 ml inhalation QID 05/22/23 03/28/24 (2.5 mg base)/3 mL nebulization soln lorazepam 0.5 mg tablet 0.25 mg PO DAILY PRN Anxiety 05/22/23 03/28/24 menthol 4 % topical gel (Biofreeze 1 applic topical Q8H PRN Pain 05/22/23 03/28/24 (menthol)) sodium phosphates 19 gram-7 118 ml NV DAILY PRN Constipation 05/22/23 03/28/24 gram/118 mL enema (Fleet Enema) Saccharomyces boulardii 250 mg 250 mg PO AMHS 03/12/24 03/28/24 capsule (Florastor) buspirone 15 mg tablet 15 mg PO TID 03/12/24 03/28/24 calcium carbonate 1,000 mg PO Q6 PRN Indigestion 03/12/24 03/28/24 divalproex 250 mg tablet,delayed 250 mg PO BID 03/12/24 03/28/24 release fluticasone fur. 200 mcg-umeclid 1 inh inhalation QAM 03/12/24 03/28/24 62.5 mcg-vilant 25 mcg inhalat.powder (Trelegy Ellipta) furosemide 40 mg tablet 40 mg PO BID 03/12/24 03/28/24 gabapentin 300 mg capsule 600 mg PO TID 03/12/24 03/28/24 polyethylene glycol 3350 17 17 g PO AMHS 03/12/24 03/28/24 gram/dose oral powder (Miralax) potassium chloride 10 mEq 10 meq PO QAM 03/12/24 03/28/24 tablet,extended release(part/cryst) prednisone 5 mg tablet 5 mg PO QAM 03/12/24 03/28/24 simethicone 80 mg chewable tablet 160 mg PO AMHS 03/12/24 03/28/24 tramadol 50 mg tablet 50 mg PO Q6 PRN pain 9-10 03/12/24 03/28/24 triamcinolone acetonide 0.1 % 1 applic topical BID 03/12/24 03/28/24 topical cream venlafaxine 75 mg tablet,extended 225 mg PO QAM 03/12/24 03/28/24 release 24 hr nystatin 100,000 unit/gram topical 1 applic topical BID 03/17/24 03/28/24 powder (Nyamy) amoxicillin 875 mg-potassium 1 tab PO AMHS 03/28/24 03/28/24 clavulanate 125 mg tablet doxycycline hyclate 100 mg tablet 100 mg PO AMHS 03/28/24 03/28/24 sodium chloride 3 % for 0 ml inhalation QID 03/28/24 03/28/24 nebulization Previous Rx's Medication Instructions Recorded pen needle, diabetic 31 gauge x #100 ea 06/11/2116" (Comfort EZ Pen [place]) atorvastatin 10 mg tablet 10 mg PO 3XWK #36 tabs 09/29/21 omeprazole 20 mg capsule,delayed 20 mg PO QAM #90 caps 10/21/21 release carvedilol 3.125 mg tablet 3.125 mg PO BIDM #30 tabs 05/26/23 Results & Data (ED) Vital Signs Vital Signs - 24 hr 03/28/24 18:47 03/28/24 18:53 03/28/24 18:55 Temperature 37 C Temperature Source Oral Pulse Rate 75 Pulse Rate [Apical] 83 Pulse Rate from SpO2 Sensor Respiratory Rate 17 22 Respiratory Effort / Characteristics Non-Labored Respiratory Depth Normal Normal Respiratory Pattern Regular Blood Pressure 123/67 Blood Pressure [Right Arm] 123/67 Blood Pressure Mean 85 Blood Pressure Mean [Right Arm] 85 Pulse Oximetry 86 L 96 84 L Oxygen Delivery Method Nasal Cannula Nasal Cannula Room Air Oxygen Flow Rate 4 Fraction of Inspired Oxygen Sepsis Recent Fever Within 48 Hours No Sepsis New/Unexplained Change in Mental Status N/A Sepsis Action Taken by Nursing No Action Required Oxygen Flow Rate - Titration 4 Pulse Oximetry Post Tiitration 95 03/28/24 18:57 03/28/24 18:58 03/28/24 19:00 Temperature Temperature Source Pulse Rate 72 Pulse Rate [Apical] Pulse Rate from SpO2 Sensor 71 Respiratory Rate 27 H Respiratory Effort / Characteristics Respiratory Depth Respiratory Pattern Blood Pressure 121/80 142/76 H Blood Pressure [Right Arm] Blood Pressure Mean 92 92 Blood Pressure Mean [Right Arm] Pulse Oximetry 100 Oxygen Delivery Method Oxygen Flow Rate Fraction of Inspired Oxygen Sepsis Recent Fever Within 48 Hours Sepsis New/Unexplained Change in Mental Status Sepsis Action Taken by Nursing Oxygen Flow Rate - Titration Pulse Oximetry Post Tiitration 03/28/24 19:00 03/28/24 19:00 03/28/24 19:00 Temperature Temperature Source Pulse Rate Pulse Rate [Apical] Pulse Rate from SpO2 Sensor Respiratory Rate Respiratory Effort / Characteristics Respiratory Depth Respiratory Pattern Blood Pressure 142/76 H 142/76 H 142/76 H Blood Pressure [Right Arm] Blood Pressure Mean 92 92 92 Blood Pressure Mean [Right Arm] Pulse Oximetry Oxygen Delivery Method Oxygen Flow Rate Fraction of Inspired Oxygen Sepsis Recent Fever Within 48 Hours Sepsis New/Unexplained Change in Mental Status Sepsis Action Taken by Nursing Oxygen Flow Rate - Titration Pulse Oximetry Post Tiitration 03/28/24 19:00 03/28/24 19:00 03/28/24 19:18 Temperature Temperature Source Pulse Rate 78 72 Pulse Rate [Apical] Pulse Rate from SpO2 Sensor 70 72 Respiratory Rate 25 H 28 H Respiratory Effort / Characteristics Respiratory Depth Respiratory Pattern Blood Pressure 142/76 H Blood Pressure [Right Arm] Blood Pressure Mean 92 Blood Pressure Mean [Right Arm] Pulse Oximetry 100 98 Oxygen Delivery Method Oxygen Flow Rate Fraction of Inspired Oxygen Sepsis Recent Fever Within 48 Hours Sepsis New/Unexplained Change in Mental Status Sepsis Action Taken by Nursing Oxygen Flow Rate - Titration Pulse Oximetry Post Tiitration 03/28/24 19:31 03/28/24 19:31 03/28/24 19:42 Temperature Temperature Source Pulse Rate 71 Pulse Rate [Apical] Pulse Rate from SpO2 Sensor 71 Respiratory Rate 27 H Respiratory Effort / Characteristics Respiratory Depth Respiratory Pattern Blood Pressure 141/69 H 141/69 H Blood Pressure [Right Arm] Blood Pressure Mean 121 121 Blood Pressure Mean [Right Arm] Pulse Oximetry 100 Oxygen Delivery Method Oxygen Flow Rate Fraction of Inspired Oxygen Sepsis Recent Fever Within 48 Hours Sepsis New/Unexplained Change in Mental Status Sepsis Action Taken by Nursing Oxygen Flow Rate - Titration Pulse Oximetry Post Tiitration 03/28/24 19:45 03/28/24 20:17 03/28/24 20:27 Temperature Temperature Source Pulse Rate 71 72 Pulse Rate [Apical] Pulse Rate from SpO2 Sensor 66 69 Respiratory Rate 28 H 28 H Respiratory Effort / Characteristics Respiratory Depth Respiratory Pattern Blood Pressure 132/59 L Blood Pressure [Right Arm] Blood Pressure Mean 82 Blood Pressure Mean [Right Arm] Pulse Oximetry 100 98 Oxygen Delivery Method Oxygen Flow Rate Fraction of Inspired Oxygen Sepsis Recent Fever Within 48 Hours Sepsis New/Unexplained Change in Mental Status Sepsis Action Taken by Nursing Oxygen Flow Rate - Titration Pulse Oximetry Post Tiitration 03/28/24 20:30 03/28/24 20:31 03/28/24 20:36 Temperature Temperature Source Pulse Rate 70 70 Pulse Rate [Apical] Pulse Rate from SpO2 Sensor 70 Respiratory Rate 22 Respiratory Effort / Characteristics Respiratory Depth Respiratory Pattern Blood Pressure 137/66 Blood Pressure [Right Arm] Blood Pressure Mean 81 Blood Pressure Mean [Right Arm] Pulse Oximetry 97 Oxygen Delivery Method Oxygen Flow Rate Fraction of Inspired Oxygen Sepsis Recent Fever Within 48 Hours Sepsis New/Unexplained Change in Mental Status Sepsis Action Taken by Nursing Oxygen Flow Rate - Titration Pulse Oximetry Post Tiitration 03/28/24 20:51 03/28/24 21:00 03/28/24 21:06 Temperature Temperature Source Pulse Rate 68 68 Pulse Rate [Apical] Pulse Rate from SpO2 Sensor 67 67 Respiratory Rate 25 H 19 Respiratory Effort / Characteristics Respiratory Depth Respiratory Pattern Blood Pressure 114/71 Blood Pressure [Right Arm] Blood Pressure Mean 87 Blood Pressure Mean [Right Arm] Pulse Oximetry 97 96 Oxygen Delivery Method Oxygen Flow Rate Fraction of Inspired Oxygen Sepsis Recent Fever Within 48 Hours Sepsis New/Unexplained Change in Mental Status Sepsis Action Taken by Nursing Oxygen Flow Rate - Titration Pulse Oximetry Post Tiitration 03/28/24 21:27 03/28/24 21:30 03/28/24 21:30 Temperature Temperature Source Pulse Rate 72 Pulse Rate [Apical] Pulse Rate from SpO2 Sensor 68 Respiratory Rate 21 Respiratory Effort / Characteristics Respiratory Depth Respiratory Pattern Blood Pressure 104/66 104/66 Blood Pressure [Right Arm] Blood Pressure Mean 87 87 Blood Pressure Mean [Right Arm] Pulse Oximetry 96 Oxygen Delivery Method Oxygen Flow Rate Fraction of Inspired Oxygen Sepsis Recent Fever Within 48 Hours Sepsis New/Unexplained Change in Mental Status Sepsis Action Taken by Nursing Oxygen Flow Rate - Titration Pulse Oximetry Post Tiitration 03/28/24 21:36 03/28/24 21:52 03/28/24 22:06 Temperature Temperature Source Pulse Rate 70 67 Pulse Rate [Apical] Pulse Rate from SpO2 Sensor 64 66 Respiratory Rate 24 22 Respiratory Effort / Characteristics Non-Labored Respiratory Depth Normal Respiratory Pattern Regular Blood Pressure Blood Pressure [Right Arm] Blood Pressure Mean Blood Pressure Mean [Right Arm] Pulse Oximetry 95 97 Oxygen Delivery Method Room Air Oxygen Flow Rate 4 Fraction of Inspired Oxygen Sepsis Recent Fever Within 48 Hours Sepsis New/Unexplained Change in Mental Status Sepsis Action Taken by Nursing Oxygen Flow Rate - Titration Pulse Oximetry Post Tiitration 03/28/24 22:15 03/28/24 22:16 03/28/24 22:27 Temperature Temperature Source Pulse Rate 68 67 Pulse Rate [Apical] Pulse Rate from SpO2 Sensor 65 67 Respiratory Rate 20 19 Respiratory Effort / Characteristics Respiratory Depth Respiratory Pattern Blood Pressure Blood Pressure [Right Arm] Blood Pressure Mean 87 Blood Pressure Mean [Right Arm] Pulse Oximetry 92 95 Oxygen Delivery Method Oxygen Flow Rate Fraction of Inspired Oxygen Sepsis Recent Fever Within 48 Hours Sepsis New/Unexplained Change in Mental Status Sepsis Action Taken by Nursing Oxygen Flow Rate - Titration Pulse Oximetry Post Tiitration 03/28/24 22:29 Temperature Temperature Source Pulse Rate 71 Pulse Rate [Apical] Pulse Rate from SpO2 Sensor Respiratory Rate 21 Respiratory Effort / Characteristics Non-Labored Spontaneous Respiratory Depth Normal Respiratory Pattern Regular Blood Pressure Blood Pressure [Right Arm] Blood Pressure Mean Blood Pressure Mean [Right Arm] Pulse Oximetry 95 Oxygen Delivery Method Oxygen Flow Rate Fraction of Inspired Oxygen 40 Sepsis Recent Fever Within 48 Hours Sepsis New/Unexplained Change in Mental Status Sepsis Action Taken by Nursing Oxygen Flow Rate - Titration Pulse Oximetry Post Tiitration Laboratory Data 03/28/24 18:50 03/28/24 18:50 Lab Results 03/28/24 03/28/24 Range/Units 18:50 20:47 WBC 8.22 (4.8-10.8) K/ul RBC 4.20 (4.20-5.40) M/uL Hgb 12.3 (12.0-16.0) g/dl Hct 39.4 (37.0-47.0) % MCV 93.8 (80.0-100.0) fL MCH 29.3 (25.0-34.0) pg MCHC 31.2 L (32.0-36.0) g/dL RDW Std Deviation 46.4 H (36.4-46.3) fL RDW Coeff of Iman 14.0 (11.5-14.5) % Plt Count 258 (130-400) K/uL MPV 10.1 (9.4-12.4) fL Immature Gran % (Auto) 2.7 % Neut % (Auto) 66.2 % Lymph % (Auto) 24.6 % [place] % (Auto) 5.5 % Eos % (Auto) 0.4 % Baso % (Auto) 0.6 % Neut # (Auto) 5.45 (1.40-6.50) K/uL Lymph # (Auto) 2.02 (1.20-3.40) K/uL [place] # (Auto) 0.45 (0.11-0.59) K/uL Eos # (Auto) 0.03 (0.00-0.50) K/uL Baso # (Auto) 0.05 (0.00-0.20) K/uL Immature Gran # (Auto) 0.22 H (0.01-0.20) K/uL PT 10.9 (9.0-12.0) Seconds INR 1.0 (0.9-1.1) VBG pH 7.39 (7.36-7.41) VBG pCO2 99 H (38-50) mmHg VBG pO2 50 mmHg VBG HCO3 60 mmol/L VBG O2 Saturation 80.7 % VBG Base Excess 28.2 mEq/L Sodium 140 (136-145) mmol/L Potassium 5.2 H (3.5-5.1) mmol/L Chloride 88 L (98-107) mmol/L Carbon Dioxide > 45 H* (21-32) mmol/L Anion Gap TNP BUN 20 (6-23) mg/dl Creatinine 0.69 (0.6-1.2) mg/dl Est Cr Clr Drug Dosing 101.0 ml/min eGFR 88.78 BUN/Creatinine Ratio 29.0 H (10-20) Glucose 144 H (70-99(Fasting)) mg/dl Lactate 1.3 (0.4-2.0) mmol/L Calcium 9.1 (8.6-10.3) mg/dl Magnesium 1.7 (1.7-2.4) mg/dl Total Bilirubin 0.4 (0.2-1.0) mg/dl AST 15 (13-39) U/L ALT 12 (7-52) U/L Alkaline Phosphatase 87 (34-104) U/L Troponin I High Sens 26.0 H 26.8 H (0-14) pg/ml Total Protein 6.7 (6.0-8.3) gm/dl Albumin 3.4 (3.4-5.0) gm/dl Globulin 3.3 (2.5-4.0) gm/dl Albumin/Globulin Ratio 1.0 (0.9-2) Procalcitonin 0.04 (0-0.5) ng/ml TSH 3.445 (0.300-4.500) uIu/ml Valproic Acid 18 L (50-100) mcg/ml Adenovirus (PCR) Not Detected (NotDetected) B. pertussis DNA (PCR) Not Detected (NotDetected) B.parapertussis DNA PCR Not Detected (NotDetected) C. pneumoniae DNA (PCR) Not Detected (NotDetected) Coronavirus OC43 (PCR) Not Detected (NotDetected) Coronavirus HKU1 (PCR) Not Detected (NotDetected) Coronavirus 229E (PCR) Not Detected (NotDetected) SARS-CoV-2 (PCR) DETECTED A (NotDetected) Coronavirus NL63 (PCR) Not Detected (NotDetected) Human Metapneumovir PCR Not Detected (NotDetected) Influenza Type A (PCR) Not Detected (NotDetected) Influenza Type B (PCR) Not Detected (NotDetected) M. pneumoniae (PCR) Not Detected (NotDetected) Parainfluenza 1 (PCR) Not Detected (NotDetected) Parainfluenza 2 (PCR) Not Detected (NotDetected) Parainfluenza 3 (PCR) Not Detected (NotDetected) Parainfluenza 4 (PCR) Not Detected (NotDetected) RSV (PCR) Not Detected (NotDetected) Entero/Rhino (PCR) Not Detected (NotDetected) Administered Medications Albumin Human (Albumin 25%) 25 gm in 100 mls @ 50 mls/hr IV ONE ONE Stop: 03/29/24 00:22 Last Admin: 03/28/24 22:56 Dose: 50 mls/hr Documented By: JAVAN Discontinued Medications Albuterol (Albut/Ipratrop 3mg/0.5mg Neb 3 Ml Vial) 3 ml NEB NOW STA; Protocol Stop: 03/28/24 18:57 Last Admin: 03/28/24 19:30 Dose: 3 ml Documented By: SERJIO Piperacillin Sod/Tazobactam Sod (Zosyn) 4.5 gm in 100 mls @ 200 mls/hr IV NOW ONE; Protocol Stop: 03/28/24 21:40 Last Infusion: 03/28/24 22:07 Dose: Infused Documented By: Admin: 03/28/24 21:36 Dose: 200 mls/hr Documented By: SERJIO Valproic Acid 125 mg/ Dextrose 51.25 mls @ 55 mls/hr IV NOW ONE Stop: 03/28/24 23:40 Last Admin: 03/28/24 23:01 Dose: 55 mls/hr Documented By: JAVAN Ioversol (Optiray 320 125ml) 117 ml IV ONCE ONE Stop: 03/28/24 20:17 Last Admin: 03/28/24 20:17 Dose: 117 ml Documented By: SANDRA Methylprednisolone (Methylprednisolone 125 Mg/2 Ml Vial) 125 mg IV NOW STA Stop: 03/28/24 22:14 Last Admin: 03/28/24 22:56 Dose: 125 mg Documented By: JAVAN Imaging Data Radiologist's Impression: Chest CTA 03/28/24 18:54 Exam(s): CTA CHEST EXAM: CT Angiography Chest With Intravenous Contrast CLINICAL HISTORY: Hypoxia. TECHNIQUE: Axial computed tomographic angiography images of the chest with intravenous contrast. MIPS images were created and reviewed. CTDI is 35. 92 mGy and DLP is 624.41 mGy-cm. Automated exposure control was utilized for the study. A dose lowering technique was utilized adhering to the principles of ALARA. MIP reconstructed images were created and reviewed. COMPARISON: No relevant prior studies available. FINDINGS: Pulmonary arteries: There is dilation of the pulmonary arteries. The main pulmonary artery measures 4.9 cm. No pulmonary embolus. Aorta: No acute findings. No thoracic aortic aneurysm. Lungs: There is near-complete collapse of the left lung with obliteration of the lumen of the bronchi of both upper and lower lobes and filling defects of the left bronchus. No mass. No consolidation. Pleural space: Small left pleural effusion. No pneumothorax. Heart: Unremarkable. No cardiomegaly. No significant pericardial effusion. No evidence of RV dysfunction. Bones/joints: No acute fracture. No dislocation. Soft tissues: Unremarkable. Lymph nodes: Unremarkable. No enlarged lymph nodes. IMPRESSION: 1. No pulmonary embolus. 2. There is near-complete collapse of the left lung with obliteration of the lumen of the bronchi of both upper and lower lobes and filling defects of the left bronchus. This could represent aspiration, however given the appearance malignancy needs to be excluded. 3. Small left pleural effusion. 4. There is dilation of the pulmonary arteries. This is concerning for pulmonary artery hypertension. Electronically signed by: Great Durán MD 03/28/24 20:52 PM Chest X-Ray 03/28/24 18:55 Exam(s): XR CXR 1 VIEW EXAM: XR Chest, 1 View CLINICAL HISTORY: Weakness and hypoxia. TECHNIQUE: Frontal view of the chest. COMPARISON: Chest radiograph 03/19/2024 FINDINGS: Lungs: Stable right airspace opacities. Worsening near complete white out of the left lung. Pleural space: Unremarkable. No pneumothorax. Heart: Stable cardiac silhouette. Mediastinum: Unremarkable. Normal mediastinal contour. Bones/joints: There are degenerative changes of the spine. No acute fracture. Tubes, lines and devices: Redemonstrated left cardiac pacer. IMPRESSION: 1. Worsening near complete white out of the left lung. 2. Stable right airspace opacities. Electronically signed by: Greta Durán MD 03/28/24 20:[address] 03/28/24 18:55 Exam(s): CT HEAD Without Contrast EXAM: CT Head Without Intravenous Contrast CLINICAL HISTORY: Hypoxia and confusion. TECHNIQUE: Axial computed tomography images of the head/brain without intravenous contrast. CTDI is 35.92 mGy and DLP is 624.41 mGy-cm. Automated exposure control was utilized for the study. A dose lowering technique was utilized adhering to the principles of ALARA. COMPARISON: CT head 10/14/2020 FINDINGS: Artifacts: Please note significant streak artifact limits evaluation. Brain: Stable presumed cemented material or calcifications of the right cerebellum. No intracranial hemorrhage, mass-effect or midline shift. No abnormal extra axial fluid. No evidence of acute infarct. Mild periventricular white matter hypodensities are most consistent with chronic microangiopathy. Ventricles: Unremarkable. No ventriculomegaly. Bones/joints: Unremarkable. No acute fracture. Soft tissues: Unremarkable. Sinuses: Unremarkable as visualized. No acute sinusitis. Mastoid air cells: Large bilateral mastoid effusions. IMPRESSION: 1. No acute intracranial finding. 2. Large bilateral mastoid effusions. Electronically signed by: Greta Durán MD 03/28/24 20:42 PM Discharge Plan Visit Data Chief Complaint: Shortness of Breath/Dyspnea Stated Complaint: SOB ED Provider: Tigre Lawrence Discharge Problem: Weakness, Acute and chronic respiratory failure Patient Disposition: Being Evaluated by Hospitalist Discharge Instructions Interventions: ED Discharge Assessment Last Done: 03/28/24 23:29
[2024-03-28 19:03] LABS: Base Excess VBG 28.2 mEq/L; HCO3 VBG 60 mmol/L; Oxygen Saturation VBG 80.7 %; PCO2 VBG 99 mmHg (38-50); PO2 VBG 50 mmHg; pH VBG 7.39 (7.36-7.41)
[2024-03-28 19:14] LABS: Basophils # (auto) 0.05 K/uL (0.00-0.20); Basophils % (auto) 0.6 %; Eosinophils # (auto) 0.03 K/uL (0.00-0.50); Eosinophils % (auto) 0.4 %; Hematocrit (blood only) 39.4 % (37.0-47.0); Hemoglobin 12.3 g/dl (12.0-16.0); Immature Granulocytes # (auto) 0.22 K/uL (0.01-0.20); Immature Granulocytes % (auto) 2.7 %; Lymphocytes # (auto) 2.02 K/uL (1.20-3.40); Lymphocytes % (auto) 24.6 %; Mean Corpuscular Hemoglobin 29.3 pg (25.0-34.0); Mean Corpuscular Hgb Conc 31.2 g/dL (32.0-36.0); Mean Corpuscular Volume 93.8 fL (80.0-100.0); Mean Platelet Volume 10.1 fL (9.4-12.4); Monocytes # (auto) 0.45 K/uL (0.11-0.59); Monocytes % (auto) 5.5 %; Neutrophils # (auto) 5.45 K/uL (1.40-6.50); Neutrophils % (auto) 66.2 %; Platelet Count 258 K/uL (130-400); RDW Standard Deviation 46.4 fL (36.4-46.3); White Blood Count 8.22 K/ul (4.8-10.8)
[2024-03-28] MEDS: ALBUT/IPRATROP 3MG/0.5MG NEB 3 ML VIAL NEB STA (19:30)
[2024-03-28 19:39] LABS: Alanine Aminotransferase 12 U/L (7-52); Albumin Level 3.4 gm/dl (3.4-5.0); Alkaline Phosphatase 87 U/L (34-104); Aspartate Aminotransferase 15 U/L (13-39); Bilirubin,Total 0.4 mg/dl (0.2-1.0); Blood Urea Nitrogen 20 mg/dl (6-23); Calcium 9.1 mg/dl (8.6-10.3); Carbon Dioxide > 45 mmol/L (21-32); Chloride 88 mmol/L (98-107); Globulin 3.3 gm/dl (2.5-4.0); Glucose 144 mg/dl (70-99(Fasting)); Magnesium 1.7 mg/dl (1.7-2.4); Potassium 5.2 mmol/L (3.5-5.1); Sodium 140 mmol/L (136-145); Total Protein 6.7 gm/dl (6.0-8.3)
[2024-03-28 19:46] LABS: Prothrombin Time 10.9 Seconds (9.0-12.0); Thyroid Stimulating Hormone 3.445 uIu/ml (0.300-4.500)
[2024-03-28 20:06] LABS: Adenovirus PCR Not Detected (NotDetected); Bordetella parapertussis PCR Not Detected (NotDetected); Bordetella pertussis PCR Not Detected (NotDetected); Chlamydia pneumoniae PCR Not Detected (NotDetected); Coronavirus 229E PCR Not Detected (NotDetected); Coronavirus CoV-2 (COVID19)PCR DETECTED (NotDetected); Coronavirus HKU1 PCR Not Detected (NotDetected); Coronavirus NL63 PCR Not Detected (NotDetected); Coronavirus OC43PCR Not Detected (NotDetected); Human Metapneumovirus PCR Not Detected (NotDetected); Influenza A PCR Not Detected (NotDetected); Influenza B PCR Not Detected (NotDetected); Mycoplasma pneumoniae PCR Not Detected (NotDetected); Parainfluenza Virus 1 PCR Not Detected (NotDetected); Parainfluenza Virus 2 PCR Not Detected (NotDetected); Parainfluenza Virus 3 PCR Not Detected (NotDetected); Parainfluenza Virus 4 PCR Not Detected (NotDetected); Respiratory Syncytial VirusPCR Not Detected (NotDetected); Rhinovirus/Enterovirus PCR Not Detected (NotDetected)
[2024-03-28] MEDS: OPTIRAY 320 125ml IV ONE (20:17)
--- NOTE | 2024-03-28 20:17 | XRay Report ---
Exam(s): XR CXR 1 VIEW EXAM: XR Chest, 1 View CLINICAL HISTORY: Weakness and hypoxia. TECHNIQUE: Frontal view of the chest. COMPARISON: Chest radiograph 03/19/2024 FINDINGS: Lungs: Stable right airspace opacities. Worsening near complete white out of the left lung. Pleural space: Unremarkable. No pneumothorax. Heart: Stable cardiac silhouette. Mediastinum: Unremarkable. Normal mediastinal contour. Bones/joints: There are degenerative changes of the spine. No acute fracture. Tubes, lines and devices: Redemonstrated left cardiac pacer. IMPRESSION: 1. Worsening near complete white out of the left lung. 2. Stable right airspace opacities. Electronically signed by: Greta Durán MD 03/28/24 20:16 PM
--- NOTE | 2024-03-28 20:43 | CT Scan Report ---
Exam(s): CT HEAD Without Contrast EXAM: CT Head Without Intravenous Contrast CLINICAL HISTORY: Hypoxia and confusion. TECHNIQUE: Axial computed tomography images of the head/brain without intravenous contrast. CTDI is 35.92 mGy and DLP is 624.41 mGy-cm. Automated exposure control was utilized for the study. A dose lowering technique was utilized adhering to the principles of ALARA. COMPARISON: CT head 10/14/2020 FINDINGS: Artifacts: Please note significant streak artifact limits evaluation. Brain: Stable presumed cemented material or calcifications of the right cerebellum. No intracranial hemorrhage, mass-effect or midline shift. No abnormal extra axial fluid. No evidence of acute infarct. Mild periventricular white matter hypodensities are most consistent with chronic microangiopathy. Ventricles: Unremarkable. No ventriculomegaly. Bones/joints: Unremarkable. No acute fracture. Soft tissues: Unremarkable. Sinuses: Unremarkable as visualized. No acute sinusitis. Mastoid air cells: Large bilateral mastoid effusions. IMPRESSION: 1. No acute intracranial finding. 2. Large bilateral mastoid effusions. Electronically signed by: Greta Durán MD 03/28/24 20:42 PM
--- NOTE | 2024-03-28 20:53 | CT Scan Report ---
Exam(s): CTA CHEST EXAM: CT Angiography Chest With Intravenous Contrast CLINICAL HISTORY: Hypoxia. TECHNIQUE: Axial computed tomographic angiography images of the chest with intravenous contrast. MIPS images were created and reviewed. CTDI is 35. 92 mGy and DLP is 624.41 mGy-cm. Automated exposure control was utilized for the study. A dose lowering technique was utilized adhering to the principles of ALARA. MIP reconstructed images were created and reviewed. COMPARISON: No relevant prior studies available. FINDINGS: Pulmonary arteries: There is dilation of the pulmonary arteries. The main pulmonary artery measures 4.9 cm. No pulmonary embolus. Aorta: No acute findings. No thoracic aortic aneurysm. Lungs: There is near-complete collapse of the left lung with obliteration of the lumen of the bronchi of both upper and lower lobes and filling defects of the left bronchus. No mass. No consolidation. Pleural space: Small left pleural effusion. No pneumothorax. Heart: Unremarkable. No cardiomegaly. No significant pericardial effusion. No evidence of RV dysfunction. Bones/joints: No acute fracture. No dislocation. Soft tissues: Unremarkable. Lymph nodes: Unremarkable. No enlarged lymph nodes. IMPRESSION: 1. No pulmonary embolus. 2. There is near-complete collapse of the left lung with obliteration of the lumen of the bronchi of both upper and lower lobes and filling defects of the left bronchus. This could represent aspiration, however given the appearance malignancy needs to be excluded. 3. Small left pleural effusion. 4. There is dilation of the pulmonary arteries. This is concerning for pulmonary artery hypertension. Electronically signed by: Greta Durán MD 03/28/24 20:52 PM
[2024-03-28 21:29] LABS: Appearance Urine Clear (Clear); Bacteria Urine Automated None Seen (None Seen); Bilirubin Urine Negative (Negative); Blood Urine Trace (Negative); Cast Urine Automated 0-2 /lpf (0-2); Color Urine Yellow; Epithelial Cell Urine Auto 0-2 /hpf (0-2); Glucose Urine UA Negative (Negative); Ketones Urine Negative (Negative); Leukocyte Esterase Urine 1+ (Negative); Nitrite Urine Negative (Negative); Protein Urine Negative (Negative); Specific Gravity Urine 1.026 (1.000-1.030); Urobilinogen Urine Negative (Negative); WBC Urine Automated 21-50 /hpf (0-5); pH Urine 5.5 (4.5-7.5)
[2024-03-28] MEDS: PIPERACILLIN/TAZOBACTAM 4.5 GM/100 ML BAG IV ONE (21:36)
[2024-03-28] MEDS ORDERED: ALBUT/IPRATROP 3MG/0.5MG NEB 3 ML VIAL NEB PRN (22:17)
[2024-03-28] MEDS ORDERED: ACETAMINOPHEN 1,000 MG/100 ML VIAL IV PRN (22:18)
--- NOTE | 2024-03-28 22:36 | History & Physical Report ---
Date of Service March 28, 2024 Assessment & Plan (1) Acute on chronic respiratory failure with hypoxia and hypercapnia: (2) Collapse of left lung: (3) COVID: (4) Sepsis associated hypotension: (5) Altered mental state: (6) Trigeminal neuralgia: Plan Acute on chronic respiratory failure with hypoxia and hypercapnia near collapse of left lung- NPO Patient was initially placed on nonrebreather mask, and then placed on BiPAP 15/5 with ABG showing pCO2 of 93 CTA chest showed no pulmonary embolism. There is near complete collapse of the left lung with obliteration of the lumen of the bronchi of both upper and lower lobes, and filling defects of the left bronchus. This could represent aspiration, however, malignancy needs to be ruled out Give Solu-Medrol 125 mg IV now, then 40 mg IV every 8 hours MRSA swab is positive Placed on vancomycin IV per pharmacokinetic monitoring Zosyn 4.5 g IV every 8 hours DuoNebs every 2 hours as needed Consult pulmonology Hypotension- Blood pressure decreased to a low of 104/66, but did rebound after receiving IV Solu-Medrol and albumin IV COVID infection- Initially tested positive on 03/17/2024, with repeat positive this evening IV Solu-Medrol as above Diabetes mellitus- Decrease glargine from 35 to 20 units subcu twice daily Placed on Accu-Cheks with NovoLog SSI History of Present Illness Chief Complaint: The patient is referred to the emergency department from [facility] due to increased hypoxia and worsening confusion throughout the day Primary Care Provider: [facility] The patient is a 78-year-old female with a past medical history including chronic combined systolic and diastolic CHF, chronic respiratory failure with hypoxia and hypercapnia, metabolic encephalopathy, trigeminal neuralgia, diabetes mellitus, CMC arthritis, recurrent urinary tract infection, COPD, anxiety with depression, and history of pacemaker. The patient presents to the emergency department as a referral from [facility], due to worsening confusion and hypoxia. Allergies Allergy/AdvReac Type Severity Reaction Status Date / Time chocolate flavor Allergy Intermediate Headache Verified 02/20/24 14:30 erythromycin base Allergy Intermediate CONFUSION, Verified 02/20/24 14:30 HEADACHE nitrofurantoin Allergy Intermediate 15 Verified 02/20/24 14:30 different symptoms Home Medications Medication Instructions Recorded Confirmed Type pen needle, diabetic 31 gauge x #100 ea 06/11/21 03/28/24 Rx 5/16" (Comfort EZ Pen [place]) atorvastatin 10 mg tablet 10 mg PO 3XWK #36 tabs 09/29/21 03/28/24 Rx omeprazole 20 mg capsule,delayed 20 mg PO QAM #90 caps 10/21/21 03/28/24 Rx release acetaminophen 500 mg tablet 1,000 mg PO Q8H PRN fever/pain 02/07/23 03/28/24 History (Tylenol Extra Strength) levothyroxine 50 mcg tablet 50 mcg PO DAILY 02/07/23 03/28/24 History bisacodyl 10 mg rectal suppository 10 mg [place] DAILY PRN Constipation 05/22/23 03/28/24 History (Dulcolax (bisacodyl)) fluticasone propionate 50 2 spray intranasal QAM 05/22/23 03/28/24 History mcg/actuation nasal spray,suspension guaifenesin 600 mg tablet, 600 mg PO Q12H 05/22/23 03/28/24 History extended release 12 hr (Mucinex) insulin glargine 100 unit/mL 35 unit subcut AMHS 05/22/23 03/28/24 History subcutaneous solution (Lantus U-100 Insulin) insulin lispro 100 unit/mL 1 sliding scale dose subcut 05/22/23 03/28/24 History subcutaneous solution (Humalog USEASDIRECTD U-100 Insulin) ipratropium 0.5 mg-albuterol 3 mg 3 ml inhalation Q2H PRN 05/22/23 03/28/24 History (2.5 mg base)/3 mL nebulization SOB/wheezing soln ipratropium 0.5 mg-albuterol 3 mg 3 ml inhalation QID 05/22/23 03/28/24 History (2.5 mg base)/3 mL nebulization soln lorazepam 0.5 mg tablet 0.25 mg PO DAILY PRN Anxiety 05/22/23 03/28/24 History menthol 4 % topical gel (Biofreeze 1 applic topical Q8H PRN Pain 05/22/23 03/28/24 History (menthol)) sodium phosphates 19 gram-7 118 ml NH DAILY PRN Constipation 05/22/23 03/28/24 History gram/118 mL enema (Fleet Enema) carvedilol 3.125 mg tablet 3.125 mg PO BIDM #30 tabs 05/26/23 03/28/24 Rx Saccharomyces boulardii 250 mg 250 mg PO AMHS 03/12/24 03/28/24 History capsule (Florastor) buspirone 15 mg tablet 15 mg PO TID 03/12/24 03/28/24 History calcium carbonate 1,000 mg PO Q6 PRN Indigestion 03/12/24 03/28/24 History divalproex 250 mg tablet,delayed 250 mg PO BID 03/12/24 03/28/24 History release fluticasone fur. 200 mcg-umeclid 1 inh inhalation QAM 03/12/24 03/28/24 History 62.5 mcg-vilant 25 mcg inhalat.powder (Trelegy Ellipta) furosemide 40 mg tablet 40 mg PO BID 03/12/24 03/28/24 History gabapentin 300 mg capsule 600 mg PO TID 03/12/24 03/28/24 History polyethylene glycol 3350 17 17 g PO AMHS 03/12/24 03/28/24 History gram/dose oral powder (Miralax) potassium chloride 10 mEq 10 meq PO QAM 03/12/24 03/28/24 History tablet,extended release(part/cryst) prednisone 5 mg tablet 5 mg PO QAM 03/12/24 03/28/24 History simethicone 80 mg chewable tablet 160 mg PO AMHS 03/12/24 03/28/24 History tramadol 50 mg tablet 50 mg PO Q6 PRN pain 9-10 03/12/24 03/28/24 History triamcinolone acetonide 0.1 % 1 applic topical BID 03/12/24 03/28/24 History topical cream venlafaxine 75 mg tablet,extended 225 mg PO QAM 03/12/24 03/28/24 History release 24 hr nystatin 100,000 unit/gram topical 1 applic topical BID 03/17/24 03/28/24 History powder (Nyamyc) amoxicillin 875 mg-potassium 1 tab PO AMHS 03/28/24 03/28/24 History clavulanate 125 mg tablet doxycycline hyclate 100 mg tablet 100 mg PO AMHS 03/28/24 03/28/24 History sodium chloride 3 % for 0 ml inhalation QID 03/28/24 03/28/24 History nebulization Past Med/Surg History Problem List (Updated 03/29/24 @ 04:16 by Austin Billy MD) Collapse of left lung Acute on chronic respiratory failure with hypoxia and hypercapnia Sepsis associated hypotension Acute and chronic respiratory failure (Acute) Weakness (Acute) Multifocal pneumonia Chronic combined systolic and diastolic CHF (congestive heart failure) Respiratory failure with hypoxia and hypercapnia Hypochloremia Sterile pyuria Metabolic encephalopathy COVID Trigeminal neuralgia Hyperglycemia due to diabetes mellitus Acute hyperglycemia (Acute) Altered mental state (Acute) Acute dehydration (Acute) Acute UTI (Acute) CMC arthritis Carpal tunnel syndrome, left Idiopathic polyneuropathy Elevated brain natriuretic peptide (BNP) level (Acute) Elevated troponin (Acute) Acute respiratory failure with hypoxia and hypercapnia Acute respiratory failure with hypoxia Hyperkalemia (Acute) Recent urinary tract infection Urinary retention with incomplete bladder emptying Mixed stress and urge urinary incontinence Dry skin dermatitis HFrEF (heart failure with reduced ejection fraction) (HFpEF) heart failure with preserved ejection fraction COPD (chronic obstructive pulmonary disease) ARF (acute renal failure) Infection due to ESBL-producing Escherichia coli Urinary incontinence Hypokalemia Pneumonia Elevated troponin Respiratory distress (Acute) CHF (congestive heart failure) (Acute) Somnolence (Acute) Leukocytosis (Acute) Elevated CO2 level (Acute) Acute and chronic respiratory failure with hypercapnia (Acute) UTI (urinary tract infection) Anxiety with depression Hyperlipidemia Subcutaneous abscess (Acute) Cellulitis of female genitalia (Acute) Pneumonia due to 2019 novel coronavirus (Acute) Acute exacerbation of chronic obstructive pulmonary disease (Acute) Infection of lip COVID-19 Eczema Shoulder pain Urinary incontinence Diabetes (Acute) 1st degree AV block (Acute) Anxiety (Acute) Atrial paroxysmal tachycardia (Acute) Generalized osteoarthrosis, unspecified site (Acute) LAFB (left anterior fascicular block) (Acute) Mild obstructive sleep apnea (Acute) Morbid obesity (Acute) Nocturnal hypoxia (Chronic) Right bundle branch block (Acute) Venous insufficiency (chronic) (peripheral) (Acute) Venous stasis (Acute) Chronic kidney disease, stage III (moderate) Depression GERD (gastroesophageal reflux disease) COPD (chronic obstructive pulmonary disease) HTN (hypertension) (Chronic) Pacemaker (Chronic) Medical History Cheilitis Panniculitis Candidal intertrigo Chronic respiratory failure with hypoxia, on home O2 therapy Renal colic Proctitis History of renal stent Pyelonephritis Nephrolithiasis 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) Syncope and collapse (06/03/13) Rectal abscess Vertigo Surgical History History of biopsy of temporal artery History of colonoscopy (~06/2010) History of dilation and curettage History of neurologic surgery rhizotomy History of appendectomy History of total abdominal hysterectomy Reports KERRI-BSO S/P knee replacement S/P cholecystectomy Family History Family/Other Hypertension Diabetes Cancer Adopted Heart disease Grandmother Diabetes Heart disease Grandfather Heart disease Aunt Cancer Uncle Cancer Other No pertinent family history in first degree relatives Social History Smoking Status: Former smoker Tobacco Type: Cigarettes Second Hand Exposure: Yes; Do You Dip or Chew Tobacco: No; Hx Alcohol Use: No Hx Substance Use: No Preferred Language: Arabic Communication Ability: Effective Program Aide Required: No Beliefs That Will Affect Care: None marital status: / Current Living Situation: Senior Living Current Living Situation Comment: Lives at center care Feels Safe at Home: Yes Assistive Devices: Mechanical Lift and Wheelchair Review of Systems Review of Systems: HPI and review of systems are limited, due to patient somnolent state Physical Exam Physical Exam: The patient is somnolent, obese, normocephalic and atraumatic, lying in bed and in mild to moderate respiratory distress on nonrebreather mask HEENT--PERRL, EOMI, mucous membranes and oropharynx dry. Neck--supple. No JVD. No bruits. Thyroid normal, trachea midline, no adenopathy. Heart--normal S1 and S2. No murmurs, rubs or gallops. Lungs-- decreased breath sounds throughout. Mild to moderate respiratory dist ress and accessory muscle use. Abdomen--normal bowel sounds and soft. Nontender. Nondistended. Morbidly obese Extremities--no cyanosis or clubbing. No edema. Dermatologic--normal skin turgor, normal color, no abnormal lymph nodes, no rash. Neurologic--cranial nerves II through XII grossly intact. Rheumatologic--limited exam Psychiatric--somnolent. Results & Data Results & Data Vital Signs (Past 12 Hours) Vital Signs Temp Pulse Pulse Resp BP BP Pulse Ox 03/28/24 22:29 71 21 95 03/28/24 21:52 03/28/24 21:36 70 24 95 03/28/24 21:30 104/66 03/28/24 21:30 104/66 03/28/24 21:27 72 21 96 03/28/24 21:06 68 19 96 03/28/24 21:00 114/71 03/28/24 20:51 68 25 H 97 03/28/24 20:36 70 22 97 03/28/24 20:31 70 03/28/24 20:30 137/66 03/28/24 20:27 72 28 H 98 03/28/24 20:17 132/59 L 03/28/24 19:45 71 28 H 100 03/28/24 19:42 71 27 H 100 03/28/24 19:31 141/69 H 03/28/24 19:31 141/69 H 03/28/24 19:18 72 28 H 98 03/28/24 19:00 78 25 H 100 03/28/24 19:00 142/76 H 03/28/24 19:00 142/76 H 03/28/24 19:00 142/76 H 03/28/24 19:00 142/76 H 03/28/24 19:00 142/76 H 03/28/24 18:58 121/80 03/28/24 18:57 72 27 H 100 03/28/24 18:55 84 L 03/28/24 18:53 83 22 123/67 96 03/28/24 18:47 37 C 75 17 123/67 86 L O2 Del Method O2 Flow Rate FiO2 03/28/24 22:29 40 03/28/24 21:52 Room Air 4 03/28/24 21:36 03/28/24 21:30 03/28/24 21:30 03/28/24 21:27 03/28/24 21:06 03/28/24 21:00 03/28/24 20:51 03/28/24 20:36 03/28/24 20:31 03/28/24 20:30 03/28/24 20:27 03/28/24 20:17 03/28/24 19:45 03/28/24 19:42 03/28/24 19:31 03/28/24 19:31 03/28/24 19:18 03/28/24 19:00 03/28/24 19:00 03/28/24 19:00 03/28/24 19:00 03/28/24 19:00 03/28/24 19:00 03/28/24 18:58 03/28/24 18:57 03/28/24 18:55 Room Air 03/28/24 18:53 Nasal Cannula 4 03/28/24 18:47 Nasal Cannula Laboratory Results Laboratory Results WBC 8.22 K/ul (4.8-10.8) 03/28/24 18:50 RBC 4.20 M/uL (4.20-5.40) 03/28/24 18:50 Hgb 12.3 g/dl (12.0-16.0) 03/28/24 18:50 Hct 39.4 % (37.0-47.0) 03/28/24 18:50 MCV 93.8 fL (80.0-100.0) 03/28/24 18:50 MCH 29.3 pg (25.0-34.0) 03/28/24 18:50 MCHC 31.2 g/dL (32.0-36.0) L 03/28/24 18:50 RDW Std Deviation 46.4 fL (36.4-46.3) H 03/28/24 18:50 RDW Coeff of [place] 14.0 % (11.5-14.5) 03/28/24 18:50 Plt Count 258 K/uL (130-400) 03/28/24 18:50 MPV 10.1 fL (9.4-12.4) 03/28/24 18:50 Immature Gran % (Auto) 2.7 % 03/28/24 18:50 Neut % (Auto) 66.2 % 03/28/24 18:50 Lymph % (Auto) 24.6 % 03/28/24 18:50 [place] % (Auto) 5.5 % 03/28/24 18:50 Eos % (Auto) 0.4 % 03/28/24 18:50 Baso % (Auto) 0.6 % 03/28/24 18:50 Neut # (Auto) 5.45 K/uL (1.40-6.50) 03/28/24 18:50 Lymph # (Auto) 2.02 K/uL (1.20-3.40) 03/28/24 18:50 [place] # (Auto) 0.45 K/uL (0.11-0.59) 03/28/24 18:50 Eos # (Auto) 0.03 K/uL (0.00-0.50) 03/28/24 18:50 Baso # (Auto) 0.05 K/uL (0.00-0.20) 03/28/24 18:50 Immature Gran # (Auto) 0.22 K/uL (0.01-0.20) H 03/28/24 18:50 PT 10.9 Seconds (9.0-12.0) 03/28/24 18:50 INR 1.0 (0.9-1.1) 03/28/24 18:50 VBG pH 7.39 (7.36-7.41) 03/28/24 18:50 VBG pCO2 99 mmHg (38-50) H 03/28/24 18:50 VBG pO2 50 mmHg 03/28/24 18:50 VBG HCO3 60 mmol/L 03/28/24 18:50 VBG O2 Saturation 80.7 % 03/28/24 18:50 VBG Base Excess 28.2 mEq/L 03/28/24 18:50 Sodium 140 mmol/L (136-145) 03/28/24 18:50 Potassium 5.2 mmol/L (3.5-5.1) H 03/28/24 18:50 Chloride 88 mmol/L (98-107) L 03/28/24 18:50 Carbon Dioxide > 45 mmol/L (21-32) H* 03/28/24 18:50 Anion Gap TNP 03/28/24 18:50 BUN 20 mg/dl (6-23) 03/28/24 18:50 Creatinine 0.69 mg/dl (0.6-1.2) 03/28/24 18:50 Est Cr Clr Drug Dosing 101.0 ml/min 03/28/24 18:50 eGFR 88.78 03/28/24 18:50 BUN/Creatinine Ratio 29.0 (10-20) H 03/28/24 18:50 Glucose 144 mg/dl (70-99(Fasting)) H 03/28/24 18:50 POC Glucose 124 mg/dl (70-99) H 03/28/24 22:50 Lactate 1.3 mmol/L (0.4-2.0) 03/28/24 18:50 Calcium 9.1 mg/dl (8.6-10.3) 03/28/24 18:50 Magnesium 1.7 mg/dl (1.7-2.4) 03/28/24 18:50 Total Bilirubin 0.4 mg/dl (0.2-1.0) 03/28/24 18:50 AST 15 U/L (13-39) 03/28/24 18:50 ALT 12 U/L (7-52) 03/28/24 18:50 Alkaline Phosphatase 87 U/L (34-104) 03/28/24 18:50 Troponin I High Sens 26.8 pg/ml (0-14) H 03/28/24 20:47 Total Protein 6.7 gm/dl (6.0-8.3) 03/28/24 18:50 Albumin 3.4 gm/dl (3.4-5.0) 03/28/24 18:50 Globulin 3.3 gm/dl (2.5-4.0) 03/28/24 18:50 Albumin/Globulin Ratio 1.0 (0.9-2) 03/28/24 18:50 Procalcitonin 0.04 ng/ml (0-0.5) 03/28/24 18:50 TSH 3.445 uIu/ml (0.300-4.500) 03/28/24 18:50 Urine Color Yellow 03/28/24 Unknown Urine Appearance Clear (Clear) 03/28/24 Unknown Urine pH 5.5 (4.5-7.5) 03/28/24 Unknown Ur Specific [place] 1.026 (1.000-1.030) 03/28/24 Unknown Urine Protein Negative (Negative) 03/28/24 Unknown Urine Glucose (UA) Negative (Negative) 03/28/24 Unknown Urine Ketones Negative (Negative) 03/28/24 Unknown Urine Blood Trace (Negative) H 03/28/24 Unknown Urine Nitrite Negative (Negative) 03/28/24 Unknown Urine Bilirubin Negative (Negative) 03/28/24 Unknown Urine Urobilinogen Negative (Negative) 03/28/24 Unknown Ur Leukocyte Esterase 1+ (Negative) H 03/28/24 Unknown Urine WBC (Auto) 21-50 /hpf (0-5) H 03/28/24 Unknown Urine RBC (Auto) 11-20 /hpf (0-2) H 03/28/24 Unknown U Hyaline Cast (Auto) 0-2 /lpf (0-2) 03/28/24 Unknown U Epithel Cells (Auto) 0-2 /hpf (0-2) 03/28/24 Unknown Urine Bacteria (Auto) None Seen (None Seen) 03/28/24 Unknown Urine Yeast Present (None Prsent) A 03/28/24 Unknown Nasal Screen MRSA (PCR) Positive (Negative) A 03/28/24 22:50 Valproic Acid 18 mcg/ml (50-100) L 03/28/24 18:50 Adenovirus (PCR) Not Detected (NotDetected) 03/28/24 18:50 B. pertussis DNA (PCR) Not Detected (NotDetected) 03/28/24 18:50 B.parapertussis DNA PCR Not Detected (NotDetected) 03/28/24 18:50 C. pneumoniae DNA (PCR) Not Detected (NotDetected) 03/28/24 18:50 Coronavirus OC43 (PCR) Not Detected (NotDetected) 03/28/24 18:50 Coronavirus HKU1 (PCR) Not Detected (NotDetected) 03/28/24 18:50 Coronavirus 229E (PCR) Not Detected (NotDetected) 03/28/24 18:50 SARS-CoV-2 (PCR) DETECTED (NotDetected) A 03/28/24 18:50 Coronavirus NL63 (PCR) Not Detected (NotDetected) 03/28/24 18:50 Human Metapneumovir PCR Not Detected (NotDetected) 03/28/24 18:50 Influenza Type A (PCR) Not Detected (NotDetected) 03/28/24 18:50 Influenza Type B (PCR) Not Detected (NotDetected) 03/28/24 18:50 M. pneumoniae (PCR) Not Detected (NotDetected) 03/28/24 18:50 Parainfluenza 1 (PCR) Not Detected (NotDetected) 03/28/24 18:50 Parainfluenza 2 (PCR) Not Detected (NotDetected) 03/28/24 18:50 Parainfluenza 3 (PCR) Not Detected (NotDetected) 03/28/24 18:50 Parainfluenza 4 (PCR) Not Detected (NotDetected) 03/28/24 18:50 RSV (PCR) Not Detected (NotDetected) 03/28/24 18:50 Entero/Rhino (PCR) Not Detected (NotDetected) 03/28/24 18:50 Impressions Chest CTA 03/28/24 18:54 Exam(s): CTA CHEST EXAM: CT Angiography Chest With Intravenous Contrast CLINICAL HISTORY: Hypoxia. TECHNIQUE: Axial computed tomographic angiography images of the chest with intravenous contrast. MIPS images were created and reviewed. CTDI is 35. 92 mGy and DLP is 624.41 mGy-cm. Automated exposure control was utilized for the study. A dose lowering technique was utilized adhering to the principles of ALARA. MIP reconstructed images were created and reviewed. COMPARISON: No relevant prior studies available. FINDINGS: Pulmonary arteries: There is dilation of the pulmonary arteries. The main pulmonary artery measures 4.9 cm. No pulmonary embolus. Aorta: No acute findings. No thoracic aortic aneurysm. Lungs: There is near-complete collapse of the left lung with obliteration of the lumen of the bronchi of both upper and lower lobes and filling defects of the left bronchus. No mass. No consolidation. Pleural space: Small left pleural effusion. No pneumothorax. Heart: Unremarkable. No cardiomegaly. No significant pericardial effusion. No evidence of RV dysfunction. Bones/joints: No acute fracture. No dislocation. Soft tissues: Unremarkable. Lymph nodes: Unremarkable. No enlarged lymph nodes. IMPRESSION: 1. No pulmonary embolus. 2. There is near-complete collapse of the left lung with obliteration of the lumen of the bronchi of both upper and lower lobes and filling defects of the left bronchus. This could represent aspiration, however given the appearance malignancy needs to be excluded. 3. Small left pleural effusion. 4. There is dilation of the pulmonary arteries. This is concerning for pulmonary artery hypertension. Electronically signed by: Greta Durán MD 03/28/24 20:52 PM Chest X-Ray 03/28/24 18:55 Exam(s): XR CXR 1 VIEW EXAM: XR Chest, 1 View CLINICAL HISTORY: Weakness and hypoxia. TECHNIQUE: Frontal view of the chest. COMPARISON: Chest radiograph 03/19/2024 FINDINGS: Lungs: Stable right airspace opacities. Worsening near complete white out of the left lung. Pleural space: Unremarkable. No pneumothorax. Heart: Stable cardiac silhouette. Mediastinum: Unremarkable. Normal mediastinal contour. Bones/joints: There are degenerative changes of the spine. No acute fracture. Tubes, lines and devices: Redemonstrated left cardiac pacer. IMPRESSION: 1. Worsening near complete white out of the left lung. 2. Stable right airspace opacities. Electronically signed by: Greta Durán MD 03/28/24 20:[address] 03/28/24 18:55 Exam(s): CT HEAD Without Contrast EXAM: CT Head Without Intravenous Contrast CLINICAL HISTORY: Hypoxia and confusion. TECHNIQUE: Axial computed tomography images of the head/brain without intravenous contrast. CTDI is 35.92 mGy and DLP is 624.41 mGy-cm. Automated exposure control was utilized for the study. A dose lowering technique was utilized adhering to the principles of ALARA. COMPARISON: CT head 10/14/2020 FINDINGS: Artifacts: Please note significant streak artifact limits evaluation. Brain: Stable presumed cemented material or calcifications of the right cerebellum. No intracranial hemorrhage, mass-effect or midline shift. No abnormal extra axial fluid. No evidence of acute infarct. Mild periventricular white matter hypodensities are most consistent with chronic microangiopathy. Ventricles: Unremarkable. No ventriculomegaly. Bones/joints: Unremarkable. No acute fracture. Soft tissues: Unremarkable. Sinuses: Unremarkable as visualized. No acute sinusitis. Mastoid air cells: Large bilateral mastoid effusions. IMPRESSION: 1. No acute intracranial finding. 2. Large bilateral mastoid effusions. Electronically signed by: Greta Durán MD 03/28/24 20:42 PM Code Status & VTE Plan Code Status DNR/DNI VTE Prophylaxis Plan VTE Prophylaxis will be ordered: Yes PG Care Time/CCT Total # of Minutes Spent Total Time Spent with Patient: Total time spent is greater than 50% in coordination of care (as documented) at patient's floor/unit and/or counseling patient: Coding Level of Care Code 50104 INT INP/OBS CARE MIN Diagnoses Acute on chronic respiratory failure with hypoxia and hypercapnia J96.21; J96.22 Collapse of left lung J98.11 COVID U07.1 Sepsis associated hypotension A41.9; I95.9 Altered mental state R41.82 Trigeminal neuralgia G50.0
[2024-03-28] MEDS: ALBUMIN 25% 25 GM/100 ML VIAL IV ONE (22:56)
[2024-03-28] MEDS: methylPREDNISolone 125 MG/2 ML VIAL IV STA (22:56)
[2024-03-28] MEDS: VALPROATE SOD 125 MG in DEXTROSE 5% 50 ML IV ONE (23:01)
[2024-03-29] MEDS ORDERED: GLUCAGON FOR INJ 1 MG VIAL SQ PRN ×2
[2024-03-29] MEDS ORDERED: GLUCOSE 40% GEL 15 GM TUBE PO PRN ×2
[2024-03-29] MEDS ORDERED: DEXTROSE 50% 50 ML SYRINGE IV PRN ×2
[2024-03-29] MEDS ORDERED: CARBOHYDRATES FOR HYPOGLYCEMIA PO PRN ×2
[2024-03-29] MEDS ORDERED: GLUCOSE 10 TAB/TUBE PO PRN ×2
[2024-03-29] MEDS ORDERED: VANCOMYCIN CONSULT ACTIVE PRN (04:19)
[2024-03-29] MEDS: VANCOMYCIN HCL 2,250 MG in SODIUM CHLORIDE 0.9% 500 ML IV ONE (05:46)
[2024-03-29] MEDS ORDERED: methylPREDNISolone 10 mg/mL (For Ped Dose < 7mg) IV SCH (06:00)
[2024-03-29] MEDS: INSULIN ASPART PER UNIT CHARGE SC SCH ×2 (06:30→21:29)
[2024-03-29] MEDS: methylPREDNISolone 40 MG in SYRINGE 0 ML IV SCH (06:30)
[2024-03-29] MEDS: VALPROATE SOD 125 MG in DEXTROSE 5% 50 ML IV SCH (06:31)
[2024-03-29 07:35] LABS: Basophils # (auto) 0.03 K/uL (0.00-0.20); Basophils % (auto) 0.5 %; Hemoglobin 11.7 g/dl (12.0-16.0); Immature Granulocytes # (auto) 0.23 K/uL (0.01-0.20); Immature Granulocytes % (auto) 3.5 %; Lymphocytes # (auto) 1.21 K/uL (1.20-3.40); Lymphocytes % (auto) 18.3 %; Mean Corpuscular Hemoglobin 29.2 pg (25.0-34.0); Mean Corpuscular Hgb Conc 31.6 g/dL (32.0-36.0); Mean Corpuscular Volume 92.3 fL (80.0-100.0); Mean Platelet Volume 10.4 fL (9.4-12.4); Monocytes # (auto) 0.07 K/uL (0.11-0.59); Monocytes % (auto) 1.1 %; Neutrophils # (auto) 5.07 K/uL (1.40-6.50); Neutrophils % (auto) 76.6 %; Platelet Count 241 K/uL (130-400); RDW Coefficient of Variation 14.2 % (11.5-14.5); RDW Standard Deviation 47.4 fL (36.4-46.3); Red Blood Count 4.01 M/uL (4.20-5.40); White Blood Count 6.61 K/ul (4.8-10.8)
[2024-03-29 08:04] LABS: Alanine Aminotransferase 10 U/L (7-52); Albumin Globulin Ratio 1.1 (0.9-2); Albumin Level 3.4 gm/dl (3.4-5.0); Alkaline Phosphatase 81 U/L (34-104); Aspartate Aminotransferase 11 U/L (13-39); BUN Creatinine Ratio 30.1 (10-20); Bilirubin,Total 0.5 mg/dl (0.2-1.0); Blood Urea Nitrogen 22 mg/dl (6-23); Calcium 9.2 mg/dl (8.6-10.3); Carbon Dioxide > 45 mmol/L (21-32); Chloride 91 mmol/L (98-107); Creatinine Clr Calc Pharmacy 86.5 ml/min; Globulin 3.1 gm/dl (2.5-4.0); Glucose 211 mg/dl (70-99(Fasting)); Magnesium 1.6 mg/dl (1.7-2.4); Potassium 4.3 mmol/L (3.5-5.1); Sodium 144 mmol/L (136-145); Total Protein 6.5 gm/dl (6.0-8.3)
[2024-03-29] MEDS: 4.5GM X1 IV STA (08:24)
[2024-03-29] MEDS: PANTOprazole 40 MG/10 ML SYR IV SCH (08:25)
[2024-03-29] MEDS: LANTUS PER UNIT CHARGE SQ SCH (08:27)
[2024-03-29] MEDS: HEPARIN SOD 5,000 UNIT/0.5 ML VIAL SQ SCH (08:28)
--- NOTE | 2024-03-29 09:28 | Pharmacy Report ---
Pharmacy PK ABX Note - Date of Service March 29, 2024 - Assessment and Plan Assessment 78 year old F receiving vancomycin and zosyn for treatment of pulmonary infection. Blood/urine cultures pending. COVID (+). MRSA nasal (+). Renal function stable. Day #1 of antimicrobial therapy. Plan Vancomycin * Loading dose: 2250 mg IV x 1 * Maintenance dose: 1500 mg IV every 24 hours * Regimen is predicted to achieve target AUC/ABBIE of 400-600 mg/L.hr * Will obtain a level after ~ 48h of therapy if vancomycin continued, or sooner if clinically indicated. Pharmacy will continue to follow and will adjust dose/frequency as necessary. Thank you. Pharmacy has transitioned to AUC monitoring for vancomycin. AUC/ABBIE is the preferred PK/PD target and is associated with decreased risk of nephrotoxicity compared to traditional trough targets.
[2024-03-29] MEDS: MAGNESIUM SULFATE / D5W 1 GM/100 ML BAG IV SCH (09:32)
[2024-03-29] MEDS: SODIUM CHLORIDE 0.9% 1,000 ML IV SCH (09:32)
--- NOTE | 2024-03-29 10:38 | Pulmonary Consultation ---
Date of Consultation March 29, 2024 Assessment & Plan (1) Collapse of left lung: (2) Acute on chronic respiratory failure with hypoxia and hypercapnia: Plan Impression: 78-year-old female with multiple medical comorbidities. She has chronic hypercarbic respiratory failure with a resting CO2 in the 90s. She likely has obesity hypoventilation syndrome and heart failure. Her atelectasis is due to a combination of her heart compressing the left mainstem bronchus and potentially difficulty clearing secretions. Given the fact that the airways were patent on CT scan from a while ago (May 2023) my suspicion for an endobronchial lesion is quite low. Regardless the patient is a poor candidate for bronchoscopy given her resting CO2 levels and body habitus. She does not want to pursue intubation which I would wholeheartedly agree with. Recommendations: 1. Will try and keep the patient upright as possible. This will prevent the enlarged heart from compressing the left mainstem bronchus. 2. Add aggressive pulmonary toilet to include incentive spirometry, flutter v alve, hypertonic saline, and vest therapy. Will repeat chest x-ray in the next 24 hours to see how we respond. 3. The patient's hypercarbia is well compensated as evidenced by normal pH. She could have had some worsening of her hypercarbia and nocturnal BiPAP would be recommended. Sleep study performed in 2017 demonstrated mild sleep apnea with an AHI of 12 and significant nocturnal hypoxemia. She apparently declined CPAP at that point in time it appears this was never readdressed. Will place her on empiric BiPAP nightly at 15/8. 4. I see no pulmonary function tests in the chart so it is unclear if she has COPD. I do not see an indication for steroids at this point in time. 5. Poor candidate for bronchoscopy currently. Will allow her to eat. Will defer to the primary service as to whether or not a speech therapy is required. 6. The patient is afebrile. Her white count is normal. Procalcitonin negative. My suspicion for an underlying infection is quite low. Will disc ontinue antibiotics and follow the patient clinically at this point in time. The above recommendations and plan were extensively discussed with the patient. Questions were answered to the best my ability. She expressed understanding and is in agreement with plan as outlined. The patient's overall prognosis is guarded given her bedbound state, morbid obesity, and other underlying medical conditions. Agree with DNR/DNI status History of Present Illness Attending Physician: Peterson Lloyd MD History of Present Illness Asked by hospitalist to assist in evaluation management of this patient admitted with hypoxemic hypercarbic respiratory failure and an abnormal CT scan. History is obtained from review the electronic medical record. Patient is a 78-year-old female with multitude of medical issues including chronic hypoxemic and hypercarbic respiratory failure, diabetes, anxiety, obesity, potential obesity hypoventilation syndrome, and systolic and diastolic heart failure who was brought to the emergency room [facility] due to hypoxia and encephalopathy. The patient is bedbound at baseline with a chronic catheter. In the emergency room she was found to be hypercarbic with a pCO2 of 100 however her pH was normal at 7.39 and her bicarb is greater than 45. Procalcitonin was negative. CT scan demonstrated marked cardiomegaly with compression of the left mainstem bronchus. She had some opacification of the bronchus on a CT scan that was performed about 10 days ago but the bronchi were patent on the CT scan performed about 11 months ago. Patient is now awake and alert. She is off of positive airway pressure and at her baseline oxygen requirement. She is not enthusiastic about invasive procedures. She is motivated to try and participate in aggressive pulmonary toilet Allergies Allergy/AdvReac Type Severity Reaction Status Date / Time chocolate flavor Allergy Intermediate Headache Verified 02/20/24 14:30 erythromycin base Allergy Intermediate CONFUSION, Verified 02/20/24 14:30 HEADACHE nitrofurantoin Allergy Intermediate 15 Verified 02/20/24 14:30 different symptoms Home Medications Medication Instructions Recorded Confirmed Type pen needle, diabetic 31 gauge x #100 ea 06/11/21 03/28/24 Rx 5/16" (Comfort EZ Pen Turton) atorvastatin 10 mg tablet 10 mg PO 3XWK #36 tabs 09/29/21 03/28/24 Rx omeprazole 20 mg capsule,delayed 20 mg PO QAM #90 caps 10/21/21 03/28/24 Rx release acetaminophen 500 mg tablet 1,000 mg PO Q8H PRN fever/pain 02/07/23 03/28/24 History (Tylenol Extra Strength) levothyroxine 50 mcg tablet 50 mcg PO DAILY 02/07/23 03/28/24 History bisacodyl 10 mg rectal suppository 10 mg NV DAILY PRN Constipation 01/21/24 11/27/24 History (Dulcolax (bisacodyl)) fluticasone propionate 50 2 spray intranasal QAM 05/22/23 03/28/24 History mcg/actuation nasal spray,suspension guaifenesin 600 mg tablet, 600 mg PO Q12H 05/22/23 03/28/24 History extended release 12 hr (Mucinex) insulin glargine 100 unit/mL 35 unit subcut AMHS 05/22/23 03/28/24 History subcutaneous solution (Lantus U-100 Insulin) insulin lispro 100 unit/mL 1 sliding scale dose subcut 05/22/23 03/28/24 History subcutaneous solution (Humalog USEASDIRECTD U-100 Insulin) ipratropium 0.5 mg-albuterol 3 mg 3 ml inhalation Q2H PRN 05/22/23 03/28/24 History (2.5 mg base)/3 mL nebulization SOB/wheezing soln ipratropium 0.5 mg-albuterol 3 mg 3 ml inhalation QID 05/22/23 03/28/24 History (2.5 mg base)/3 mL nebulization soln lorazepam 0.5 mg tablet 0.25 mg PO DAILY PRN Anxiety 05/22/23 03/28/24 History menthol 4 % topical gel (Biofreeze 1 applic topical Q8H PRN Pain 05/22/23 03/28/24 History (menthol)) sodium phosphates 19 gram-7 118 ml NV DAILY PRN Constipation 05/22/23 03/28/24 History gram/118 mL enema (Fleet Enema) carvedilol 3.125 mg tablet 3.125 mg PO BIDM #30 tabs 05/26/23 03/28/24 Rx Saccharomyces boulardii 250 mg 250 mg PO AMHS 03/12/24 03/28/24 History capsule (Florastor) buspirone 15 mg tablet 15 mg PO TID 03/12/24 03/28/24 History calcium carbonate 1,000 mg PO Q6 PRN Indigestion 03/12/24 03/28/24 History divalproex 250 mg tablet,delayed 250 mg PO BID 03/12/24 03/28/24 History release fluticasone fur. 200 mcg-umeclid 1 inh inhalation QAM 03/12/24 03/28/24 History 62.5 mcg-vilant 25 mcg inhalat.powder (Trelegy Ellipta) furosemide 40 mg tablet 40 mg PO BID 03/12/24 03/28/24 History gabapentin 300 mg capsule 600 mg PO TID 03/12/24 03/28/24 History polyethylene glycol 3350 17 17 g PO AMHS 03/12/24 03/28/24 History gram/dose oral powder (Miralax) potassium chloride 10 mEq 10 meq PO QAM 03/12/24 03/28/24 History tablet,extended release(part/cryst) prednisone 5 mg tablet 5 mg PO QAM 03/12/24 03/28/24 History simethicone 80 mg chewable tablet 160 mg PO AMHS 03/12/24 03/28/24 History tramadol 50 mg tablet 50 mg PO Q6 PRN pain 9-10 03/12/24 03/28/24 History triamcinolone acetonide 0.1 % 1 applic topical BID 03/12/24 03/28/24 History topical cream venlafaxine 75 mg tablet,extended 225 mg PO QAM 03/12/24 03/28/24 History release 24 hr nystatin 100,000 unit/gram topical 1 applic topical BID 03/17/24 03/28/24 History powder (Nyamyc) amoxicillin 875 mg-potassium 1 tab PO AMHS 03/28/24 03/28/24 History clavulanate 125 mg tablet doxycycline hyclate 100 mg tablet 100 mg PO AMHS 03/28/24 03/28/24 History sodium chloride 3 % for 0 ml inhalation QID 03/28/24 03/28/24 History nebulization Patient History Medical History Cheilitis Panniculitis Candidal intertrigo Chronic respiratory failure with hypoxia, on home O2 therapy Renal colic Proctitis History of renal stent Pyelonephritis Nephrolithiasis 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) Syncope and collapse (06/03/13) Rectal abscess Vertigo Surgical History History of biopsy of temporal artery History of colonoscopy (~06/2010) History of dilation and curettage History of neurologic surgery rhizotomy History of appendectomy History of total abdominal hysterectomy Reports KERRI-BSO S/P knee replacement S/P cholecystectomy Family History Family/Other Hypertension Diabetes Cancer Adopted Heart disease Grandmother Diabetes Heart disease Grandfather Heart disease Aunt Cancer Uncle Cancer Other No pertinent family history in first degree relatives Social History Smoking Status: Former smoker Tobacco Type: Cigarettes Second Hand Exposure: Yes; Do You Dip or Chew Tobacco: No; Hx Alcohol Use: No Hx Substance Use: No Preferred Language: Chadian Communication Ability: Effective Bi Consultant Required: No Beliefs That Will Affect Care: None marital status: / Current Living Situation: Alf Current Living Situation Comment: Lives at center care Feels Safe at Home: Yes Assistive Devices: Mechanical Lift and Wheelchair Review of Systems Review of Systems: Please refer to admission H&P. No additions or deletions Physical Exam Constitutional: + morbidly obese; no acute distress and not ill appearing Neck: trachea midline, no thyromegaly Respiratory: normal respiratory effort, lungs clear to auscultation Cardiovascular: RRR, no murmur, no edema Gastrointestinal (Abdomen): normal bowel sounds, soft, nontender, no hepatosplenomegaly Musculoskeletal: Extremities: extremities normal to inspection Skin: no rashes, warm and dry Neurologic: Nonfocal exam Lymphatic: no cervical lymphadenopathy Results & Data Results & Data Vital Signs (Past 12 Hours) Vital Signs Temp Pulse Pulse Resp BP BP Pulse Ox 03/29/24 08:44 03/29/24 07:43 36.7 C 70 20 148/67 H 96 03/29/24 05:51 36.6 C 79 18 159/84 H 94 03/29/24 03:49 69 20 97 03/29/24 00:20 03/29/24 00:03 37.1 C 70 23 150/74 H 94 03/28/24 23:03 66 20 95 03/28/24 23:00 132/82 03/28/24 22:54 66 19 96 03/28/24 22:36 72 24 96 O2 Del Method O2 Flow Rate FiO2 03/29/24 08:44 High Flow Nasal Cannula 2 03/29/24 07:43 Nasal Cannula 6.0 03/29/24 05:51 CPAP 03/29/24 03:49 40 03/29/24 00:20 BiPAP 03/29/24 00:03 BiPAP 40 03/28/24 23:03 03/28/24 23:00 03/28/24 22:54 03/28/24 22:36 Critical Care Results & Data Vital Signs (Past 12 Hours) Vital Signs Temp Pulse Pulse Resp BP BP Pulse Ox 03/29/24 08:44 03/29/24 07:43 36.7 C 70 20 148/67 H 96 03/29/24 05:51 36.6 C 79 18 159/84 H 94 03/29/24 03:49 69 20 97 03/29/24 00:20 03/29/24 00:03 37.1 C 70 23 150/74 H 94 03/28/24 23:03 66 20 95 03/28/24 23:00 132/82 03/28/24 22:54 66 19 96 O2 Del Method O2 Flow Rate FiO2 03/29/24 08:44 High Flow Nasal Cannula 2 03/29/24 07:43 Nasal Cannula 6.0 03/29/24 05:51 CPAP 03/29/24 03:49 40 03/29/24 00:20 BiPAP 03/29/24 00:03 BiPAP 40 03/28/24 23:03 03/28/24 23:00 03/28/24 22:54 Lab & Micro Results (Past 24 Hours) RBC 4.01 M/uL (4.20-5.40) L 03/29/24 WBC 6.61 K/ul (4.8-10.8) 03/29/24 Hgb 11.7 g/dl (12.0-16.0) L 03/29/24 Hct 37.0 % (37.0-47.0) 03/29/24 MCV 92.3 fL (80.0-100.0) 03/29/24 MCH 29.2 pg (25.0-34.0) 03/29/24 MCHC 31.6 g/dL (32.0-36.0) L 03/29/24 RDW Standard Deviation 47.4 fL (36.4-46.3) H 03/29/24 RDW Coefficient of Variation 14.2 % (11.5-14.5) 03/29/24 Plt Count 241 K/uL (130-400) 03/29/24 MPV 10.4 fL (9.4-12.4) 03/29/24 Neutrophils (%) (Auto) 76.6 % 03/29/24 Lymphocytes (%) (Auto) 18.3 % 03/29/24 Monocytes # (Auto) 0.07 K/uL (0.11-0.59) L 03/29/24 Eosinophils # (Auto) 0.00 K/uL (0.00-0.50) 03/29/24 Immature Granulocyte % (Auto) 3.5 % 03/29/24 Neutrophils # (Auto) 5.07 K/uL (1.40-6.50) 03/29/24 Lymphocytes # (Auto) 1.21 K/uL (1.20-3.40) 03/29/24 Monocytes # (Auto) 0.07 K/uL (0.11-0.59) L 03/29/24 Eosinophils # (Auto) 0.00 K/uL (0.00-0.50) 03/29/24 Basophils # (Auto) 0.03 K/uL (0.00-0.20) 03/29/24 Immature Granulocyte # (Auto) 0.23 K/uL (0.01-0.20) H 03/29 Na 144 mmol/L (136-145) 03/29/24 K 4.3 mmol/L (3.5-5.1) 03/29/24 Cl 91 mmol/L (98-107) L 03/29/24 CO2 > 45 mmol/L (21-32) H* 03/29/24 Anion Gap TNP 03/29/24 BUN 22 mg/dl (6-23) 03/29/24 Creatinine 0.73 mg/dl (0.6-1.2) 03/29/24 BUN/Creatinine Ratio 30.1 (10-20) H 03/29/24 Glu 211 mg/dl (70-99(Fasting)) H 03/29/24 Ca 9.2 mg/dl (8.6-10.3) 03/29/24 Total Bilirubin 0.5 mg/dl (0.2-1.0) 03/29/24 AST 11 U/L (13-39) L 03/29/24 ALT 10 U/L (7-52) 03/29/24 Alkaline Phosphatase 81 U/L (34-104) 03/29/24 TP 6.5 gm/dl (6.0-8.3) 03/29/24 Albumin 3.4 gm/dl (3.4-5.0) 03/29/24 Globulin 3.1 gm/dl (2.5-4.0) 03/29/24 Albumin/Globulin Ratio 1.1 (0.9-2) 03/29/24 Mg 1.6 mg/dl (1.7-2.4) L 03/29/24 07:07 Calcium Level 9.2 mg/dl (8.6-10.3) 03/29/24 07:07 Prothromb Time International Ratio 1.0 (0.9-1.1) 03/28/24 18:5 0 Venous Blood pH 7.39 (7.36-7.41) 03/28/24 18:50 Venous Blood Partial Pressure CO2 99 mmHg (38-50) H 03/28/24 18 :50 Venous Blood Partial Pressure O2 50 mmHg 03/28/24 18:50 Venous Blood HCO3 60 mmol/L 03/28/24 18:50 Venous Blood Base Excess 28.2 mEq/L 03/28/24 18:50 Venous Blood Oxygen Saturation 80.7 % 03/28/24 18:50 Diagnostic Findings (Past 24 Hours) Chest CTA 03/28/24 18:54 Exam(s): CTA CHEST EXAM: CT Angiography Chest With Intravenous Contrast CLINICAL HISTORY: Hypoxia. TECHNIQUE: Axial computed tomographic angiography images of the chest with intravenous contrast. MIPS images were created and reviewed. CTDI is 35. 92 mGy and DLP is 624.41 mGy-cm. Automated exposure control was utilized for the study. A dose lowering technique was utilized adhering to the principles of ALARA. MIP reconstructed images were created and reviewed. COMPARISON: No relevant prior studies available. FINDINGS: Pulmonary arteries: There is dilation of the pulmonary arteries. The main pulmonary artery measures 4.9 cm. No pulmonary embolus. Aorta: No acute findings. No thoracic aortic aneurysm. Lungs: There is near-complete collapse of the left lung with obliteration of the lumen of the bronchi of both upper and lower lobes and filling defects of the left bronchus. No mass. No consolidation. Pleural space: Small left pleural effusion. No pneumothorax. Heart: Unremarkable. No cardiomegaly. No significant pericardial effusion. No evidence of RV dysfunction. Bones/joints: No acute fracture. No dislocation. Soft tissues: Unremarkable. Lymph nodes: Unremarkable. No enlarged lymph nodes. IMPRESSION: 1. No pulmonary embolus. 2. There is near-complete collapse of the left lung with obliteration of the lumen of the bronchi of both upper and lower lobes and filling defects of the left bronchus. This could represent aspiration, however given the appearance malignancy needs to be excluded. 3. Small left pleural effusion. 4. There is dilation of the pulmonary arteries. This is concerning for pulmonary artery hypertension. Electronically signed by: Greta Durán MD 03/28/24 20:52 PM Chest X-Ray 03/28/24 18:55 Exam(s): XR CXR 1 VIEW EXAM: XR Chest, 1 View CLINICAL HISTORY: Weakness and hypoxia. TECHNIQUE: Frontal view of the chest. COMPARISON: Chest radiograph 03/19/2024 FINDINGS: Lungs: Stable right airspace opacities. Worsening near complete white out of the left lung. Pleural space: Unremarkable. No pneumothorax. Heart: Stable cardiac silhouette. Mediastinum: Unremarkable. Normal mediastinal contour. Bones/joints: There are degenerative changes of the spine. No acute fracture. Tubes, lines and devices: Redemonstrated left cardiac pacer. IMPRESSION: 1. Worsening near complete white out of the left lung. 2. Stable right airspace opacities. Electronically signed by: Greta Durán MD 03/28/24 20:[address] 03/28/24 18:55 Exam(s): CT HEAD Without Contrast EXAM: CT Head Without Intravenous Contrast CLINICAL HISTORY: Hypoxia and confusion. TECHNIQUE: Axial computed tomography images of the head/brain without intravenous contrast. CTDI is 35.92 mGy and DLP is 624.41 mGy-cm. Automated exposure control was utilized for the study. A dose lowering technique was utilized adhering to the principles of ALARA. COMPARISON: CT head 10/14/2020 FINDINGS: Artifacts: Please note significant streak artifact limits evaluation. Brain: Stable presumed cemented material or calcifications of the right cerebellum. No intracranial hemorrhage, mass-effect or midline shift. No abnormal extra axial fluid. No evidence of acute infarct. Mild periventricular white matter hypodensities are most consistent with chronic microangiopathy. Ventricles: Unremarkable. No ventriculomegaly. Bones/joints: Unremarkable. No acute fracture. Soft tissues: Unremarkable. Sinuses: Unremarkable as visualized. No acute sinusitis. Mastoid air cells: Large bilateral mastoid effusions. IMPRESSION: 1. No acute intracranial finding. 2. Large bilateral mastoid effusions. Electronically signed by: Greta Durán MD 03/28/24 20:42 PM I & O Totals 24 Hours 03/28/24 03/29/24 03/30/24 06:59 06:59 06:59 Intake Total 302.50 / 302.50 645 / 645 Output Total 1401 / 1401 Balance -1098.50 / -1098.50 645 / 645 Cumulative 03/28/24 18:31 thru 03/29/24 09:17 Intake Total 947.50 Output Total 1401 Balance -453.50 RT Ventilator Mngmt (Last Documented) Ventilator Ordered Settings Respiratory Rate 20 03/29/24 07:43 Fraction of Inspired Oxygen 40 03/29/24 03:49 Ventilator - PT Measurements Respiratory Rate 20 PG Care Time/CCT Total # of Minutes Spent Total Time Spent with Patient: Total time spent is greater than 50% in coordination of care (as documented) at patient's floor/unit and/or counseling patient: Coding Level of Care Code 52946 INT INP/OBS CARE 3/75MIN Diagnoses Collapse of left lung J98.11 Acute on chronic respiratory failure with hypoxia and hypercapnia J96.21; J96.22
--- NOTE | 2024-03-29 11:45 | Electrocardiogram Report ---
Test Reason : Blood Pressure : */* mmHG Vent. Rate : 77 BPM Atrial Rate : 77 BPM P-R Int : 228 ms QRS Dur : 172 ms QT Int : 420 ms P-R-T Axes : 72 -76 106 degrees QTcB Int : 475 ms AV dual-paced rhythm Abnormal ECG When compared with ECG of 17-Mar-2024 05:42, Vent. rate has increased by 14 bpm Confirmed by Augusto Villar ([id number]) on 03/29/2024 11:45:20 AM Referred By: [facility] Confirmed By: Augusto Villar
[2024-03-29] MEDS ORDERED: 4.5GM EXT INFUSION IV SCH (12:00)
--- NOTE | 2024-03-29 12:29 | Hospitalist Progress Note ---
Date of Service March 29, 2024 Assessment & Plan (1) Acute on chronic respiratory failure with hypoxia and hypercapnia: Plan: Supplemental oxygen per nasal cannula to maintain saturation greater than 90%. Keep saturation in the 90 to 92% range. (2) Collapse of left lung: Plan: Due to atelectasis from left mainstem airway obstruction. Pulmonary medicine consultation and recommendations appreciated. Will try to avoid bronchoscopy due to high risk in this patient with this procedure. Continue aggressive pulmonary toilet. Serial chest x-ray (3) COVID: Plan: Recent positivity. Supportive care (4) Sepsis associated hypotension: Plan: The patient is not septic. Blood pressure is low normal but acceptable. She is not on pressor support (5) Altered mental state: Plan: She appears to be back to her mental baseline. Suspected metabolic encephalopathy present on admission, now resolved (6) Morbid obesity: Plan: BMI greater than 40. Significant weight loss recommended (7) Type 2 diabetes mellitus: Plan: ADA diet. Basal insulin therapy. Sliding scale coverage (8) Chronic kidney disease, stage III (moderate): Plan: Kidney function is at baseline. Monitor intake and output. Serial labs (9) Hypomagnesemia: Plan: Parenteral replacement ordered. Serial labs Plan To be determined Admission and Anticipated Discharge Date Admission Date: March 28, 2024 Subjective Alert and oriented. No distress. Pulmonary medicine consultation noted. Recommendations are being followed. She has complete atelectasis and collapse of the left lung. No apparent pneumothorax. She denies having aspiration episodes. She may have inspissated mucus in the left lung airways causing the collapse or it could possibly be compression of the airway as outlined by pulmonary medicine. Bronchoscopy will be avoided if possible due to high risk due to her morbid obesity. Aggressive pulmonary toilet has been ordered. Magnesium replacement underway parenterally. Diet will be allowed. She is on Zosyn and vancomycin. Review of Systems 2 Review of Systems: Constitutionalno fever or chills ENTno blurred vision, no double vision, no epistaxis, no sore throat Respiratoryno cough, no wheezing, no shortness of breath Cardiacno palpitations, no chest pain, no syncope Chris nausea, vomiting, diarrhea, melena, hematochezia. Denies aspiration episodes GUno urinary retention, no urinary incontinence, no dysuria, no hematuria Musculoskeletalno joint pain, no muscle tenderness Skinno bruising, no rashes, no pruritus Neurono isolated weakness, no paresthesia, no weakness Psychno depression, no anxiety Physical Exam 2 Physical Exam: General-alert and oriented x3, no fever, no chills. Morbidly obese HEENT-head atraumatic and normocephalic, pupils equal and reactive to light, extraocular muscles intact Neck-no lymphadenopathy or thyromegaly, trachea midline Chest-absent breath sounds and dullness left hemithorax. Diminished breath sounds on the right side without rales, wheezing or rhonchi Cardiac-regular rate and rhythm, normal S1 and S2 Abdomen-normal bowel sounds, no hepatosplenomegaly Extremities-no cyanosis, clubbing, or edema Neuro-cranial nerves II through XII intact, motor and sensory function within normal limits, strength symmetrical, no focal deficits Psych-normal affect, normal mood Results & Data Results & Data Vital Signs (Past 12 Hours) Vital Signs Temp Pulse Pulse Resp BP Pulse Ox O2 Del Method 03/29/24 11:59 37.1 C 75 20 145/72 H 94 Nasal Cannula 03/29/24 08:44 High Flow Nasal Cannula 03/29/24 07:43 36.7 C 70 20 148/67 H 96 Nasal Cannula 03/29/24 05:51 36.6 C 79 18 159/84 H 94 CPAP 03/29/24 03:49 69 20 97 O2 Flow Rate FiO2 03/29/24 11:59 03/29/24 08:44 2 03/29/24 07:43 6.0 03/29/24 05:51 03/29/24 03:49 40 Laboratory Results 03/29/24 07:07 03/29/24 07:07 PG Care Time/CCT Total # of Minutes Spent Total Time Spent with Patient: Total time spent is greater than 50% in coordination of care (as documented) at patient's floor/unit and/or counseling patient: Coding Level of Care Code 07127 SUB INP/OBS CARE 3/50MIN Diagnoses Acute on chronic respiratory failure with hypoxia and hypercapnia J96.21; J96.22 Collapse of left lung J98.11 COVID U07.1 Sepsis associated hypotension A41.9; I95.9 Altered mental state R41.82 Morbid obesity E66.01 Type 2 diabetes mellitus E11.9 Chronic kidney disease, stage III (moderate) N18.3 Hypomagnesemia E83.42
[2024-03-29] MEDS ORDERED: VANCOMYCIN HCL 1,500 MG in SODIUM CHLORIDE 0.9% 500 ML IV SCH (20:00)
[2024-03-29] MEDS: guaiFENesin 600 MG TABCR PO SCH (21:31)
[2024-03-30 06:33] LABS: Basophils # (auto) 0.02 K/uL (0.00-0.20); Basophils % (auto) 0.3 %; Eosinophils # (auto) 0.02 K/uL (0.00-0.50); Eosinophils % (auto) 0.3 %; Hematocrit (blood only) 32.5 % (37.0-47.0); Hemoglobin 10.2 g/dl (12.0-16.0); Immature Granulocytes # (auto) 0.16 K/uL (0.01-0.20); Immature Granulocytes % (auto) 2.1 %; Lymphocytes # (auto) 2.42 K/uL (1.20-3.40); Lymphocytes % (auto) 32.3 %; Mean Corpuscular Hgb Conc 31.4 g/dL (32.0-36.0); Mean Corpuscular Volume 92.3 fL (80.0-100.0); Mean Platelet Volume 10.5 fL (9.4-12.4); Monocytes # (auto) 0.64 K/uL (0.11-0.59); Monocytes % (auto) 8.5 %; Neutrophils # (auto) 4.23 K/uL (1.40-6.50); Neutrophils % (auto) 56.5 %; Platelet Count 209 K/uL (130-400); RDW Coefficient of Variation 14.2 % (11.5-14.5); RDW Standard Deviation 47.1 fL (36.4-46.3); Red Blood Count 3.52 M/uL (4.20-5.40); White Blood Count 7.49 K/ul (4.8-10.8)
[2024-03-30 06:55] LABS: BUN Creatinine Ratio 29.5 (10-20); Blood Urea Nitrogen 26 mg/dl (6-23); Calcium 8.7 mg/dl (8.6-10.3); Carbon Dioxide > 45 mmol/L (21-32); Chloride 91 mmol/L (98-107); Creatinine Clr Calc Pharmacy 71.9 ml/min; Glucose 100 mg/dl (70-99(Fasting)); Potassium 3.6 mmol/L (3.5-5.1); Sodium 142 mmol/L (136-145)
--- NOTE | 2024-03-30 08:54 | XRay Report ---
EXAM: XR chest 1V portable CLINICAL HISTORY: ATELECTASIS JTF/SJB TECHNIQUE: X-ray images of the chest were obtained in 1 view: AP view. COMPARISON: X-ray dated 03/28/2024. FINDINGS: Pulmonary Parenchyma: Right lower and para-cardiac pulmonary opacities could be an infection or atelectatic changes. Obscured left costophrenic angle could be masked by the cardiac shadow or mild effusion. Right lower small nodular shadow. The other scanned lungs are clear bilaterally. No evidence of right pleural effusion or pleural thickening. Heart and Mediastinum: Left cardiac pacemaker with leads in place. Cardiomegaly. Prominent calcific aortic arch. Bony Thorax: The bony thorax appears intact without fractures or deformities. Soft Tissues: Soft tissues overlying the chest wall are unremarkable. IMPRESSION: Right lower and para-cardiac pulmonary opacities could be an infection or atelectatic changes, unchanged. Left cardiac pacemaker with leads in place, unchanged. Obscured left costophrenic angle could be masked by the cardiac shadow or mild effusion, unchanged. Right lower small nodular shadow, unchanged. Cardiomegaly, unchanged. Electronically signed by Love Fernandez 03-30-2024 08:54 AM
--- NOTE | 2024-03-30 08:55 | Pulmonology Progress Note ---
Date of Service March 30, 2024 Assessment & Plan (1) Collapse of left lung: (2) Acute on chronic respiratory failure with hypoxia and hypercapnia: Plan Impression: 78-year-old female with multiple medical comorbidities. She has chronic hypercarbic respiratory failure with a resting CO2 in the 90s. She likely has obesity hypoventilation syndrome and heart failure. Her atelectasis is due to a combination of her heart compressing the left mainstem bronchus and potentially difficulty clearing secretions. Her x-ray this morning demonstrates significant improvement with conservative measures. Recommendations: 1. Would try and keep the patient upright as possible. This will prevent the enlarged heart from compressing the left mainstem bronchus. 2. Continue aggressive pulmonary toilet to include incentive spirometry, flutter valve, hypertonic saline, and vest therapy. 3. Obesity hypoventilation syndrome: Continue empiric BiPAP nightly at 15/8. 4. I see no pulmonary function tests in the chart so it is unclear if she has COPD. I do not see an indication for steroids at this point in time. Patient is clinically improved at this point in time. Unfortunately the majority of her issues are related to body habitus and her poor functional status. Continue to wean oxygen as tolerated. Will follow peripherally. Please call us if questions. Admission and Anticipated Discharge Date Admission Date: March 28, 2024 Subjective Patient seen and examined. EMR reviewed. The patient has been compliant with the pulmonary toilet regimen. Her x-ray this morning demonstrates significant improvement in aeration of the lung. No acute issues overnight Review of Systems Review of Systems: All systems reviewed & are unremarkable except as noted in Subjective Physical Exam Constitutional: + morbidly obese; no acute distress and not ill appearing Neck: trachea midline, no thyromegaly Respiratory: normal respiratory effort, lungs clear to auscultation Cardiovascular: RRR, no murmur, no edema Gastrointestinal (Abdomen): normal bowel sounds, soft, nontender, no hepatosplenomegaly Musculoskeletal: Extremities: extremities normal to inspection Skin: no rashes, warm and dry Lymphatic: no cervical lymphadenopathy Results & Data Results & Data Vital Signs (Past 12 Hours) Vital Signs Temp Pulse Pulse Resp BP Pulse Ox O2 Del Method 03/30/24 08:03 36.7 C 66 17 181/71 H 98 Nasal Cannula 03/30/24 07:03 47 L 22 96 03/30/24 03:28 65 24 97 03/30/24 02:46 36.3 C L 66 18 148/79 H 97 BiPAP 03/29/24 23:25 BiPAP 03/29/24 23:15 36.6 C 75 20 151/70 H 99 BiPAP 03/29/24 23:08 75 20 97 03/29/24 21:30 70 O2 Flow Rate FiO2 03/30/24 08:03 5 03/30/24 07:03 40 03/30/24 03:28 40 03/30/24 02:46 03/29/24 23:25 03/29/24 23:15 40 03/29/24 23:08 40 03/29/24 21:30 Diagnostic Findings Chest x-ray today demonstrates significant improvement in aeration of the left lung. PG Care Time/CCT Total # of Minutes Spent Total Time Spent with Patient: Total time spent is greater than 50% in coordination of care (as documented) at patient's floor/unit and/or counseling patient: Coding Level of Care Code 83952 SUB INP/OBS CARE 2/35MIN Diagnoses Collapse of left lung J98.11 Acute on chronic respiratory failure with hypoxia and hypercapnia J96.21; J96.22
--- NOTE | 2024-03-30 12:58 | Hospitalist Progress Note ---
Date of Service March 30, 2024 Assessment & Plan (1) Acute on chronic respiratory failure with hypoxia and hypercapnia: Plan: Supplemental oxygen per nasal cannula to maintain saturation greater than 90%. Keep saturation in the 90 to 92% range to less than CO2 retention (2) Collapse of left lung: Plan: Due to atelectasis from left mainstem airway obstruction. Pulmonary medicine consultation and recommendations appreciated. Will try to avoid bronchoscopy due to high risk in this patient with this procedure. Continue aggressive pulmonary toilet. Chest x-ray done today, March 30, looks much better with improved aeration of the left lung. Will repeat chest x-ray again tomorrow, March 31. (3) COVID: Plan: Recent positivity. Supportive care (4) Sepsis associated hypotension: Plan: The patient is not septic. Blood pressure is low normal but acceptable. She is not on pressor support (5) Altered mental state: Plan: She appears to be back to her mental baseline. Suspected metabolic encephalopathy present on admission, now resolved (6) Morbid obesity: Plan: BMI greater than 40. Significant weight loss recommended (7) Type 2 diabetes mellitus: Plan: ADA diet. Basal insulin therapy. Sliding scale coverage (8) Chronic kidney disease, stage III (moderate): Plan: Kidney function is at baseline. Monitor intake and output. Serial labs (9) Hypomagnesemia: Plan: Corrected with parenteral replacement. Serial labs Plan Hopeful discharge to home tomorrow, March 31 Admission and Anticipated Discharge Date Admission Date: March 28, 2024 Subjective Alert and or oriented. Anxious to go home. Chest x-ray done today, March 30, looks much better. There is much better aeration of the left lung. Pulmonary entry noted. Will continue current management. Repeat chest x-ray tomorrow, March 31. Hopefully she can go home then. Review of Systems 2 Review of Systems: Constitutionalno fever or chills ENTno blurred vision, no double vision, no epistaxis, no sore throat Respiratoryno cough, no wheezing. She does have dyspnea on exertion Cardiacno palpitations, no chest pain, no syncope Chris nausea, vomiting, diarrhea, melena, hematochezia. Denies aspiration episodes GUno urinary retention, no urinary incontinence, no dysuria, no hematuria Musculoskeletalno joint pain, no muscle tenderness Skinno bruising, no rashes, no pruritus Neurono isolated weakness, no paresthesia, no weakness Psychno depression, no anxiety Physical Exam 2 Physical Exam: General-alert and oriented x3, no fever, no chills. Morbidly obese HEENT-head atraumatic and normocephalic, pupils equal and reactive to light, extraocular muscles intact Neck-no lymphadenopathy or thyromegaly, trachea midline Chest-improved breath sounds left hemithorax. Diminished breath sounds on the right side without rales, wheezing or rhonchi Cardiac-regular rate and rhythm, normal S1 and S2 Abdomen-normal bowel sounds, no hepatosplenomegaly Extremities-no cyanosis, clubbing, or edema Neuro-cranial nerves II through XII intact, motor and sensory function within normal limits, strength symmetrical, no focal deficits Psych-normal affect, normal mood Results & Data Results & Data Vital Signs (Past 12 Hours) Vital Signs Temp Pulse Pulse Resp BP Pulse Ox O2 Del Method 03/30/24 11:47 36.9 C 64 17 156/79 H 99 Nasal Cannula 03/30/24 10:07 Nasal Cannula 03/30/24 08:03 36.7 C 66 17 181/71 H 98 Nasal Cannula 03/30/24 07:03 47 L 22 96 03/30/24 03:28 65 24 97 03/30/24 02:46 36.3 C L 66 18 148/79 H 97 BiPAP O2 Flow Rate FiO2 03/30/24 11:47 4 03/30/24 10:07 4 03/30/24 08:03 5 03/30/24 07:03 40 03/30/24 03:28 40 03/30/24 02:46 Laboratory Results 03/30/24 05:52 03/30/24 05:52 PG Care Time/CCT Total # of Minutes Spent Total Time Spent with Patient: Total time spent is greater than 50% in coordination of care (as documented) at patient's floor/unit and/or counseling patient: Coding Level of Care Code 19094 SUB INP/OBS CARE 2/35MIN Diagnoses Acute on chronic respiratory failure with hypoxia and hypercapnia J96.21; J96.22 Collapse of left lung J98.11 COVID U07.1 Sepsis associated hypotension A41.9; I95.9 Altered mental state R41.82 Morbid obesity E66.01 Type 2 diabetes mellitus E11.9 Chronic kidney disease, stage III (moderate) N18.3 Hypomagnesemia E83.42
[2024-03-30] MEDS: PANTOprazole 40 MG TAB PO SCH (22:06)
[2024-03-31 07:20] LABS: Basophils # (auto) 0.01 K/uL (0.00-0.20); Basophils % (auto) 0.2 %; Eosinophils # (auto) 0.03 K/uL (0.00-0.50); Eosinophils % (auto) 0.5 %; Hematocrit (blood only) 33.2 % (37.0-47.0); Hemoglobin 10.4 g/dl (12.0-16.0); Immature Granulocytes # (auto) 0.11 K/uL (0.01-0.20); Immature Granulocytes % (auto) 1.9 %; Lymphocytes # (auto) 1.84 K/uL (1.20-3.40); Lymphocytes % (auto) 32.1 %; Mean Corpuscular Hemoglobin 29.2 pg (25.0-34.0); Mean Corpuscular Hgb Conc 31.3 g/dL (32.0-36.0); Mean Corpuscular Volume 93.3 fL (80.0-100.0); Mean Platelet Volume 10.6 fL (9.4-12.4); Monocytes # (auto) 0.52 K/uL (0.11-0.59); Monocytes % (auto) 9.1 %; Neutrophils # (auto) 3.22 K/uL (1.40-6.50); Neutrophils % (auto) 56.2 %; Platelet Count 190 K/uL (130-400); RDW Coefficient of Variation 14.6 % (11.5-14.5); Red Blood Count 3.56 M/uL (4.20-5.40); White Blood Count 5.73 K/ul (4.8-10.8)
[2024-03-31 07:37] VITALS: RESP 19
--- NOTE | 2024-03-31 08:27 | XRay Report ---
EXAM: Radiograph of the Chest 1 View INDICATION: Atelectasis. TECHNIQUE: Frontal view of the chest. Image obtained at 7:33 AM. COMPARISON: 03/30/2024 and 03/28/2024 FINDINGS: Lungs and pleural spaces: Stable airspace consolidation in the left lung base compared to the most recent examination with significant improvement compared to the older exam. There is a cutoff sign of the left mainstem bronchial air column. Small left pleural effusion present. No pneumothorax. Heart: Stable cardiomegaly and pacing device. Mediastinum: Normal contour. Bones/joints: No fracture, erosion or dislocation. Soft tissues: No abnormality noted. No radiopaque foreign body noted. Upper abdomen: No abnormality noted. IMPRESSION: 1. Left basilar airspace consolidation and small pleural effusion unchanged compared to 03/30/2024 and improved compared to 03/28/2024. 2. Left mainstem bronchial cutoff sign concerning for central mucous plug. ACT 112: Negative or not required by law. Electronically signed by Sonya Cordova 03-31-2024 08:27 AM
[2024-03-31 08:50] LABS: BUN Creatinine Ratio 28.8 (10-20); Calcium 8.8 mg/dl (8.6-10.3); Creatinine Clr Calc Pharmacy 86.8 ml/min; Magnesium 1.9 mg/dl (1.7-2.4); Potassium 3.8 mmol/L (3.5-5.1)
--- NOTE | 2024-03-31 10:34 | Discharge Summary ---
Discharge Summary Date of Service March 31, 2024 Principal Dx & Hospital Course #1 = Principal Diagnosis (1) Acute on chronic respiratory failure with hypoxia and hypercapnia: Supplemental oxygen per nasal cannula to maintain saturation greater than 90%. Keep saturation in the 90 to 92% range to lessen CO2 retention (2) Collapse of left lung: Due to atelectasis from left mainstem airway obstruction. Pulmonary medicine consultation and recommendations appreciated. Trying to avoid bronchoscopy due to high risk in this patient with this procedure. Continue aggressive pulmonary toilet. Chest x-ray done today, March 31, continues to show improvement in left lung aeration. (3) COVID: Recent positivity. Supportive care (4) Sepsis associated hypotension: The patient is not septic. Blood pressure is low normal but acceptable. She is not on pressor support (5) Altered mental state: She appears to be back to her mental baseline. Suspected metabolic encephalopathy present on admission, now resolved (6) Morbid obesity: BMI greater than 40. Significant weight loss recommended (7) Type 2 diabetes mellitus: ADA diet. Basal insulin therapy. Sliding scale coverage (8) Chronic kidney disease, stage III (moderate): Kidney function is at baseline. Monitor intake and output. Serial labs (9) Hypomagnesemia: Corrected with parenteral replacement. Serial labs Plan Discharge back to [facility] today, March 31 Admission HPI Per Admitting Provider The patient is a 78-year-old female with a past medical history including chronic combined systolic and diastolic CHF, chronic respiratory failure with hypoxia and hypercapnia, metabolic encephalopathy, trigeminal neuralgia, diabetes mellitus, CMC arthritis, recurrent urinary tract infection, COPD, anxiety with depression, and history of pacemaker. The patient presents to the emergency department as a referral from [facility], due to wors ening confusion and hypoxia. Discharge Exam General-alert and oriented x3, no fever, no chills. Morbidly obese HEENT-head atraumatic and normocephalic, pupils equal and reactive to light, extraocular muscles intact Neck-no lymphadenopathy or thyromegaly, trachea midline Chest-improved breath sounds left hemithorax. Diminished breath sounds on the right side without rales, wheezing or rhonchi Cardiac-regular rate and rhythm, normal S1 and S2 Abdomen-normal bowel sounds, no hepatosplenomegaly Extremities-no cyanosis, clubbing, or edema Neuro-cranial nerves II through XII intact, motor and sensory function within normal limits, strength symmetrical, no focal deficits Psych-normal affect, normal mood Discharge Plan Discharge Items Patient Disposition: Transfer Longterm Fac Reason For Visit: ACUTE/CHRONIC RESP FAILURE WITH HYPOXIA/HYPERCAPNE Discharge Diagnosis: Left lung atelectasis from suspected left mainstem bronchus mucous plug, acute on chronic respiratory failure with hypoxia and hypercapnia Activity: Resume your previous activity Non-emergency contact: Primary Care Provider Call non-emergency contact if: your symptoms worsen Follow-up/Referrals: [facility] [Primary Care Provider] - Diet: Carb Consistent or DM2 Addtl Attending Provider Instructions: All medications remain the same Pending Studies at Discharge: No Stand-Alone Forms: My [facility] Skilled Items Patient informed of condition?: Yes DNR: Yes Discharge Level of Care: Other Communicable Disease: No Discharge Prognosis: Stable Lines: None Urinary Catheter: Yes Medications and DC Order Prescriptions: Continued (DME) pen needle, diabetic [Comfort EZ Pen [place]] 31 gauge x 5/16" needle See Rx Instructions .Route Qty: 100 5RF Rx Instructions: 3 TIMES DAILY atorvastatin 10 mg tablet 10 mg PO 3XWK Qty: 36 3RF Rx Instructions: Mon/Weds/Fri omeprazole 20 mg capsule,delayed release(DR/EC) 20 mg PO QAM Qty: 90 3RF levothyroxine 50 mcg tablet 50 mcg PO DAILY acetaminophen [Tylenol Extra Strength] 500 mg tablet 1,000 mg PO Q8H MDD 3G PRN (Reason: fever/pain) ipratropium-albuterol 0.5 mg-3 mg(2.5 mg base)/3 mL Solution For Nebulization 3 ml INHALATION Q2H PRN (Reason: SOB/wheezing) ipratropium-albuterol 0.5 mg-3 mg(2.5 mg base)/3 mL Solution For Nebulization 3 ml INHALATION QID bisacodyl [Dulcolax (bisacodyl)] 10 mg Suppository 10 mg OK DAILY PRN (Reason: Constipation) Fleet Enema 19-7 gram/118 mL Enema 118 ml OK DAILY PRN (Reason: Constipation) insulin lispro [Humalog U-100 Insulin] 100 unit/mL Solution 1 sliding scale dose SUBCUT USEASDIRECTD Rx Instructions: 350-400=8U;401-450=12U;451-500=16U;501-550=18U; Recheck BS in 2h, prn fluticasone propionate 50 mcg/actuation [place],Suspension 2 spray INTRANASAL QAM Rx Instructions: administer into each nostril Biofreeze (menthol) 4 % Gel 1 applic TOPICAL Q8H PRN (Reason: Pain) Rx Instructions: neck, shoulders guaifenesin [Mucinex] 600 mg Tablet Extended Release 12hr 600 mg PO Q12H insulin glargine [Lantus U-100 Insulin] 100 unit/mL solution 35 unit subcut [facility] lorazepam 0.5 mg tablet 0.25 mg PO DAILY PRN (Reason: Anxiety) Rx Instructions: as needed for anxiety FOR 14 DAYS START 03/14/24 carvedilol 3.125 mg Tablet 3.125 mg PO BIDM Qty: 30 0RF divalproex 250 mg tablet,delayed release (DR/EC) 250 mg PO BID buspirone 15 mg tablet 15 mg PO TID Saccharomyces boulardii [Florastor] 250 mg Capsule 250 mg PO [facility] furosemide 40 mg tablet 40 mg PO BID gabapentin 300 mg capsule 600 mg PO TID potassium chloride 10 mEq tablet,ER particles/crystals 10 meq PO QAM prednisone 5 mg tablet 5 mg PO QAM polyethylene glycol 3350 [Miralax] 17 gram/dose Powder 17 g PO [facility] simethicone 80 mg Tablet,Chewable 160 mg PO [facility] venlafaxine 75 mg tablet extended release 24hr 225 mg PO QAM Rx Instructions: 3 tablet dose Trelegy Ellipta 200-62.5-25 mcg blister with device 1 inh INHALATION QAM tramadol 50 mg tablet 50 mg PO Q6 PRN (Reason: pain 9-10) triamcinolone acetonide 0.1 % cream 1 applic TOPICAL BID Rx Instructions: apply to abdomen and breast folds every day and evening shift calcium carbonate 500 mg calcium (1,250 mg) Tablet,Chewable 1,000 mg PO Q6 PRN (Reason: Indigestion) amoxicillin-pot clavulanate 875-125 mg tablet 1 tab PO [facility] Rx Instructions: TAKE UNTIL 04/01/24 doxycycline hyclate 100 mg tablet 100 mg PO [facility] Rx Instructions: TAKE UNTIL 04/01/24 sodium chloride 3 % solution for nebulization 0 ml INHALATION QID Rx Instructions: INHALE 1 VIAL VIA NEBULIZER QID FOR PNEUMONIA nystatin [Nyamyc] 100,000 unit/gram powder 1 applic TOPICAL BID Rx Instructions: APPLY TO BILATERAL GROIN RASH EVERY DAY AND EVENING SHIFT Discharge Orders: Discharge Order (Routine); Ordered 03/31/24 Ordered By: Peterson Lloyd Admission Data Admit Date/Time: 03/28/24 22:30 Attending Provider: Peterson Lloyd Admit Provider: Austin Billy Primary Care Provider: [facility] Other Providers: Austin Billy; Shaheed Stephen Hospital Stay Data Consultations 03/28/24 22:04 ED Decision to Admit Stat 03/29/24 04:22 Consult Pulmonology Routine Diagnostic Imagining Performed 03/28/24 18:54 CT angio chest PE protocol Stat 03/28/24 18:55 CT head/brain wo con Stat Pending Results Patient Have Any Pending Studies at Discharge: No Discharge Instructions Given to Patient (Per Discharging Provider) All medications remain the same Total Time Total Time Spent Total Time Spent (In Minutes): 45 minutes Coding Level of Care Code 73811 INP/OBS DISCH >30 MIN Diagnoses Acute on chronic respiratory failure with hypoxia and hypercapnia J96.21; J96.22 Collapse of left lung J98.11 COVID U07.1 Sepsis associated hypotension A41.9; I95.9 Altered mental state R41.82 Morbid obesity E66.01 Type 2 diabetes mellitus E11.9 Chronic kidney disease, stage III (moderate) N18.3 Hypomagnesemia E83.42
[2024-03-31 11:40] VITALS: BP 149/61; TEMP 97.3; O2SAT 94
[2024-03-31 14:02] VITALS: PULSE 66
[2024-04-02 08:59] LABS: iSTAT Arterial Blood Gas HCO3 52 meg/L (19-24); iSTAT Arterial Blood Gas pCO2 92 mmHg (35-46); iSTAT Arterial Blood Gas pH 7.36 (7.35-7.45); iSTAT Arterial Blood Gas pO2 93 mmHg (80-95); iSTAT Carbon Dioxide > 50 mmol/L (24-31); iSTAT Hematocrit 33 % (37-47); iSTAT Hemoglobin 11.2 g/dl (12.0-16.0); iSTAT Potassium 3.9 mmol/L (3.3-5.0); iSTAT Sample Type Arterial; iSTAT Sodium 139 mmol/L (135-144)
== END 2024-03-31 14:41 | DRG 205 ==
LOC: ED 18:41 → SUATTDRO 22:30 → 2S 22:30